=== PATIENT | male | born 1960 | race Caucasian/White ===

== ENCOUNTER → 2017-09-17 | Day surgery (SDC) | payer OTHER ==
[~2017-09-17] VITALS: Ht 182.9 cm; Wt 109.0 kg
[~2017-09-17] MED LIST: ALBU18002 INH; BUPR1SUB23; BUPR8MIS SL; CARI350T28 PO; DULA0.5I; FENTANYL CITRATE INJ 50 MCG/1 ML 2 ML VIAL ONE; FOLI1TAB8 PO; GABA-113 PO; GLC500 PO; INSDGIPEN SC; INSU100I23 SC; INSU32MI13 SC; INSUINJ34 SC; INSUINJ5 SC; LBR25 PO; LIDOCAINE HCL 2% 2 ML VIAL (20MG/ML) ONE; LOSA1TAB PO; METF-841 PO; METO200T32 PO; MIDAZOLAM HCL 1 MG/ML 2ML VIAL ONE; NRN400 PO; OMEP-334 PO; OMEP1POW; PROPOFOL IV EMULSION 10 MG/ML 20 ML VIAL ONE; SODIUM CHLORIDE 0.9% 500ML 500 ML IV ONE; THM100 PO
--- NOTE | 2017-09-17 13:43 | Endo History and Physical ---
History & Physical Date of Service: Sep 17, 2017. Chief Complaint: GERD, Dysphagia Referring Physician: PAMELA Mason History of Present Illness 56 yo CM who presents for EGD secondary to GERD and Dysphagia. Social History Smoking Status: Current Every Day Smoker Hx Substance Use: Yes (suboxone) Hx Alcohol Use: Yes (states he is an alcoholic; drinks mouth wash) Allergies Coded Allergies: No Known Allergies (Unverified , 09/17/17) Current Medications Reported Home Medications Medications Dose Route/Sig Max Daily Dose Days Date Category Dose Instructions Apidra Solostar (Insulin Glulisine) 100 Unit/ Inj 0 SC TID 30 11/11/15 Rx 150-200 2 units 200-250 4 units 250-300 6 units 300-350 8 units 350-400 10 units 400-450 12 units 450-500 14 units Apidra Solostar (Insulin Glulisine) 100 Unit/ Inj 10 Units SC TID 30 11/11/15 Rx Bd Pen Needle/Julisa/Ultra (Insulin Pen Needle) 1 Mis Mis Box SC TID 11/11/15 Rx Folvite (Folic Acid) 1 Mg Tab 1 Tab PO DAILY 90 11/11/15 Rx Vitamin B-1 (Thiamine HCl) 100 Mg Tab 100 Mg PO QAM 11/11/15 Rx Metformin HCl 500 Mg Tab 500 Mg PO BIDM 11/11/15 Rx Lantus Solostar (Insulin Glargine) 100 Unit/Ml Inj 30 Unit SC HS 11/11/15 Rx Chlordiazepoxide HCl (Chlordiazepoxide) 25 Mg Cap 25 Mg PO Q8H 11/11/15 Rx take 1 tab as needed for withdrawal every 8 hours for 3 days, then every 12 h for 3 days,then daily for 3 days,then as needed Neurontin (Gabapentin) 300 Mg Cap 300 Mg PO TID 08/31/15 Reported Soma (Carisoprodol) 350 Mg Tab 350 Mg PO PRN 08/31/15 Reported Cozaar (Losartan Potassium) Unknown Strength Tab 100 Mg PO HS 08/31/15 Reported Physical Exam General Appearance: WD/WN, no apparent distress Respiratory/Chest: Auscultation: breath sounds normal Cardiovascular: Heart Auscultation: RRR Abdomen: Bowel Sounds: normal Inspection & Palpation: soft, non-distended, no tenderness, guarding & rebound Assessment and Plan Assessment: 56 yo CM who presents for EGD secondary to GERD and Dysphagia. Plan: Proceed with EGD.
[2017-09-17 13:51] VITALS: Ht 182.9 cm; Wt 109.0 kg
--- NOTE | 2017-09-17 14:52 | Discharge Instructions ---
Endoscopy Patient Instructions Date / Procedure(s) Performed Sep 17, 2017. EGD Allergy Information Coded Allergies: No Known Allergies (Unverified , 09/17/17) Discharge Date / Findings Sep 17, 2017. Aborted procedure secondary to retained gastric contents Medication Instructions OK to resume all medications today as prescribed Reported Home Medications Medications Dose Route/Sig Max Daily Dose Days Date Category Dose Instructions Suboxone 8-2 Mg (Buprenorphine Hcl-Naloxone Hcl) 1 Sub Sub 09/17/17 Reported Trulicity (Dulaglutide) 1.5 Mg/0.5 Ml Inj 09/17/17 Reported Omeprazole/Sodium Bicarbo 40-1680 mg (Omeprazole-Sodium Bicarbonate) 1 Pow Pow 09/17/17 Reported Toprol-Xl (Metoprolol Succinate) 200 Mg Tabcr 200 Mg PO DAILY 09/17/17 Reported Apidra Solostar (Insulin Glulisine) 100 Unit/ Inj 0 SC TID 30 11/11/15 Rx 150-200 2 units 200-250 4 units 250-300 6 units 300-350 8 units 350-400 10 units 400-450 12 units 450-500 14 units Apidra Solostar (Insulin Glulisine) 100 Unit/ Inj 10 Units SC TID 30 11/11/15 Rx Bd Pen Needle/Julisa/Ultra (Insulin Pen Needle) 1 Mis Mis Box SC TID 11/11/15 Rx Folvite (Folic Acid) 1 Mg Tab 1 Tab PO DAILY 90 11/11/15 Rx Vitamin B-1 (Thiamine HCl) 100 Mg Tab 100 Mg PO QAM 11/11/15 Rx Metformin HCl 500 Mg Tab 500 Mg PO BIDM 11/11/15 Rx Lantus Solostar (Insulin Glargine) 100 Unit/Ml Inj 30 Unit SC HS 11/11/15 Rx Chlordiazepoxide HCl (Chlordiazepoxide) 25 Mg Cap 25 Mg PO Q8H 11/11/15 Rx take 1 tab as needed for withdrawal every 8 hours for 3 days, then every 12 h for 3 days,then daily for 3 days,then as needed Neurontin (Gabapentin) 300 Mg Cap 300 Mg PO TID 08/31/15 Reported Soma (Carisoprodol) 350 Mg Tab 350 Mg PO PRN 08/31/15 Reported Cozaar (Losartan Potassium) Unknown Strength Tab 100 Mg PO HS 08/31/15 Reported Provider Instructions Activity Restrictions - No exercising or heavy lifting for 24 hours. - Do not drink alcohol the day of the procedure. - Do not drive a car or operate machinery until the day after the procedure. - Do not make any important decisions or sign important papers in 24 hours after the procedure. Following Day: - Return to full activity which may include returning to work/school. Diet Start your diet with liquids and light foods (jello, soup, juice, toast). Then eat your usual diet if not nauseated. Treatment For Common After Affects For mild abdominal pain, bloating, or excessive gas: - Rest - Eat lightly - Lie on right side Gastric emptying study to be scheduled by my office Follow-Up Information Follow-up with Gladys Alberto as scheduled Anesthesia Information What You Should Know You have had a procedure that required some medicine to reduce anxiety and discomfort. This treatment is called moderate sedation. After receiving the treatment, you may be sleepy, but you will be able to breathe on your own. The effects of the treatment may last for several hours. Follow these instructions along with Activity/Diet recommendations noted above: * Do NOT do anything where dizziness or clumsiness would be dangerous. * Rest quietly at home today, then you can be up and about tomorrow. * Have a responsible person stay with you the rest of today. * You may have had an I.V. today. If so, you may take the dressing off later today. Recommendations Call your doctor if: * Trouble breathing * Continuous vomiting for more than 24 hours * Temperature above 101 degrees * Severe abdominal pain or bloating * Pain not relieved by pain medicine ordered * There is increased drainage or redness from any incision * A large amount of rectal bleeding greater than 2-3 tablespoons. (If you had a polyp/s removed or have hemorrhoids, a small amount of blood - from the rectum is to be expected.) * You have any unanswered questions or concerns. IN THE EVENT OF A SERIOUS EMERGENCY, GO TO THE NEAREST EMERGENCY ROOM Your discharge instructions were prepared by provider Azam Leach. Patient Instructions Signature Page Chuck Gonzalez Patient (or Guardian) Signature/Date: I have read and understand the instructions given to me by my caregivers. Caregiver/RN/Doctor Signature/Date: The above-named patient and/or guardian has received patient instructions on this date. + Original Patient Signature Page (only) stays with chart. Please make copy for patient.
--- NOTE | 2017-09-17 15:03 | GI REPORT ---
Patient Name: Chuck Gonzalez Procedure Date: 09/17/2017 2:30 PM Date of : 1960 Admit Type: Outpatient Age: 56 Gender: Male Attending MD: Azam Leach DO Procedure: Upper GI endoscopy Providers: Azam Leach DO Referring MD: Azam Leach DO Indications: Dysphagia, Suspected gastro-esophageal reflux disease Medicines: Monitored Anesthesia Care Complications: No immediate complications. Estimated Blood Loss: Estimated blood loss: none. Procedure: Pre-Anesthesia Assessment: - Prior to the procedure, a History and Physical was performed, and patient medications and allergies were reviewed. The patient's tolerance of previous anesthesia was also reviewed. The risks and benefits of the procedure and the sedation options and risks were discussed with the patient. All questions were answered, and informed consent was obtained. Prior Anticoagulants: The patient has taken no previous anticoagulant or antiplatelet agents. ASA Grade Assessment: III - A patient with severe systemic disease. After reviewing the risks and benefits, the patient was deemed in satisfactory condition to undergo the procedure. After obtaining informed consent, the endoscope was passed under direct vision. Throughout the procedure, the patient's blood pressure, pulse, and oxygen saturations were monitored continuously. The scope was introduced through the mouth, with the intention of advancing to the duodenum. The scope was advanced to the gastric body before the procedure was aborted. Medications were given. The upper GI endoscopy was accomplished without difficulty. The patient tolerated the procedure well. The procedure was aborted due to presence of food. Findings: The esophagus was normal. A large amount of food (residue) was found on the greater curvature of the stomach. Impression: - The procedure was aborted due to presence of food. - Normal esophagus. - A large amount of food (residue) in the stomach. - No specimens collected. Recommendation: - Resume previous diet. - Continue present medications. - Repeat upper endoscopy in 1 week because there was retained food. - Will schedule Gastric emptying study prior to repeat EGD. - Return to primary care physician as previously scheduled. Azam Leach DO 09/17/2017 3:03:19 PM This report has been signed electronically. Note Initiated On: 09/17/2017 2:30 PM Number of Addenda: 0 I attest to the content of the Intraoperative Record and orders documented therein, exceptions below {[id number]}
--- NOTE | 2017-09-17 15:09 | Anesthesiology Progress Note ---
Anesthesia Post Op Note Date & Time Sep 17, 2017 at 15:09 Vital Signs Pain Intensity: 0 Vital Signs Past 12 Hours Date Time Temp Pulse Resp B/P (MAP) Pulse Ox O2 Delivery O2 Flow Rate FiO2 09/17/17 14:54 86 16 101/51 (68) 93 Room Air 09/17/17 14:12 36.4 75 16 121/65 (83) 94 Room Air Notes Mental Status: alert / awake / arousable, participated in evaluation Pt Amnestic to Procedure: Yes Nausea / Vomiting: adequately controlled Pain: adequately controlled Airway Patency, RR, SpO2: stable & adequate BP & HR: stable & adequate Hydration State: stable & adequate Anesthetic Complications: no major complications apparent
[2017-09-17 15:24] VITALS: BP 123/84; PULSE 76; O2SAT 95
== END | disposition home or self-care (01) ==
LOC: C.GI 13:13
PROVIDERS: ATTEND Internal Medicine
DX: R13.10 Dysphagia, unspecified (principal); K21.9 Gastro-esophageal reflux disease without esophagitis; J44.9 Chronic obstructive pulmonary disease, unspecified; G47.33 Obstructive sleep apnea (adult) (pediatric); I10 Essential (primary) hypertension; E11.9 Type 2 diabetes mellitus without complications; F11.20 Opioid dependence, uncomplicated; F17.200 Nicotine dependence, unspecified, uncomplicated; Z79.4 Long term (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

== ENCOUNTER → 2017-09-19 | Outpatient (CLI) | payer OTHER ==
[~2017-09-19] MED LIST changes: -FENTANYL CITRATE INJ 50 MCG/1 ML 2 ML VIAL ONE; -LIDOCAINE HCL 2% 2 ML VIAL (20MG/ML) ONE; -MIDAZOLAM HCL 1 MG/ML 2ML VIAL ONE; -PROPOFOL IV EMULSION 10 MG/ML 20 ML VIAL ONE; -SODIUM CHLORIDE 0.9% 500ML 500 ML IV ONE
--- NOTE | 2017-09-19 12:45 | DIAGNOSTIC IMAGING REPORT ---
GASTRIC EMPTYING CLINICAL HISTORY: 56 years-old Male presenting with R13.10 [id number] Gastric [id number]. TECHNIQUE: Following the oral administration of 1.2 mCi of technetium 99m sulfur colloid in egg sandwich and 8 ounces of water, static abdominal images are obtained anteriorly and posteriorly at 0 minutes, 1 hour, 2 hour, and 4 hour time intervals. Gastric emptying was calculated utilizing the geometric mean method. COMPARISON: CT of abdomen and pelvis from 08/31/2015. FINDINGS: There is approximately 80% activity remaining at the 1 hour time interval, 73% remaining at the 2 hour time interval (normal is less than 60%), and 59% activity remaining at the 4 hour time interval (normal is less than 10%). IMPRESSION: Abnormally delayed gastric emptying of solids. This could represent gastroparesis among other etiologies. Electronically signed by: Jameel Garcia M.D. 09/19/2017 12:43 PM Dictated Date/Time: 09/19/2017 12:42 PM
== END | disposition home or self-care (01) ==
LOC: C.NUCL 08:02
PROVIDERS: ATTEND Internal Medicine
DX: K21.9 Gastro-esophageal reflux disease without esophagitis (principal); R13.10 Dysphagia, unspecified

== ENCOUNTER → 2017-09-26 | Day surgery (SDC) | payer OTHER ==
[2017-09-19 13:43] VITALS: Ht 182.9 cm; Wt 109.1 kg
[~2017-09-26] VITALS: Ht 182.9 cm; Wt 109.1 kg
[~2017-09-26] MED LIST changes: +ATROPINE SULFATE 0.1 MG/ML 5ML SYR IV PRN; -BUPR1SUB23; -CARI350T28 PO; +EpHEDrine SULFATE INJ 50 MG/ML AMP IV PRN; -FOLI1TAB8 PO; -GABA-113 PO; -GLC500 PO; -INSDGIPEN SC; -INSUINJ34 SC; -LBR25 PO; +LIDOCAINE HCL 2% 2 ML VIAL (20MG/ML) ONE; -OMEP1POW; +PROPOFOL IV EMULSION 10 MG/ML 20 ML VIAL ONE; +SODIUM CHLORIDE 0.9% 500ML 500 ML IV ONE; -THM100 PO
--- NOTE | 2017-09-26 13:16 | Endo History and Physical ---
History & Physical Date of Service: September 26, 2017. Chief Complaint: Dysphagia, gastric reflux Referring Physician: MARCELA Mason History of Present Illness 56 yo CM who presents for EGD secondary to GERD and dysphagia. Past Surgical History Hx Cardiac Surgery: No Hx Internal Defibrillator: No Hx Pacemaker: No Hx Abdominal Surgery: No Hx of Implantable Prosthesis: No Hx Post-Op Nausea and Vomiting: No Hx Cancer Surgery: No Hx Thoracic Surgery: No Hx Orthopedic: Yes (L LEG X3-WOUND VAC, CELLULITIS) Hx Urinary Tract Surgery: No Social History Smoking Status: Current Every Day Smoker Hx Substance Use: Yes (suboxone, RECOVERING HEROIN/CRACK ADDICT) Hx Alcohol Use: No (RECOVERING ALCHOLIC) Allergies Coded Allergies: No Known Allergies (Verified , 09/26/17) Current Medications Reported Home Medications Medications Dose Route/Sig Max Daily Dose Days Date Category Proair Respiclick (Albuterol Sulfate) 108 Mcg/Act Aer 1-2 Puffs INH DIRECTED PRN 09/19/[address] (Omeprazole) 40 Mg Cap 1 Tab PO QAM 09/19/17 Reported Metformin HCl ER (Metformin HCl) 1,000 Mg Tab 2 Tab PO HS 09/19/17 Reported Basaglar Kwikpen (Insulin Glargine) 100 Unit/Ml Inj 50 Units SC DAILY 09/19/17 Reported Apidra (Insulin Glulisine) 100 Unit/Ml Inj 10 Units SC QDD 09/19/17 Reported Suboxone 8-2 Mg (Buprenorphine Hcl-Naloxone Hcl) 1 Mis Mis 1 Ea SL BID 7 09/19/17 Reported Gabapentin 400 Mg Cap 1 Tab PO BID 09/19/17 Reported Trulicity (Dulaglutide) 1.5 Mg/0.5 Ml Inj WK 09/17/17 Reported Toprol-Xl (Metoprolol Succinate) 200 Mg Tabcr 200 Mg PO DAILY 09/17/17 Reported Bd Pen Needle/Julisa/Ultra (Insulin Pen Needle) 1 Mis Mis Box SC TID 11/11/15 Rx Cozaar (Losartan Potassium) Unknown Strength Tab 100 Mg PO HS 08/31/15 Reported Vital Signs Weight (Kilograms): 109.09 Height (Feet): 6 Height (Inches): 0 Date Time Temp Pulse Resp B/P (MAP) Pulse Ox O2 Delivery O2 Flow Rate FiO2 09/26/17 13:13 36.8 82 18 106/67 (80) 93 Room Air Physical Exam General Appearance: WD/WN, no apparent distress Respiratory/Chest: Auscultation: breath sounds normal Cardiovascular: Heart Auscultation: RRR Abdomen: Bowel Sounds: normal Inspection & Palpation: soft, non-distended, no tenderness, guarding & rebound Assessment and Plan Assessment: 56 yo CM who presents for EGD secondary to GERD and dysphagia. Plan: Proceed with EGD.
--- NOTE | 2017-09-26 13:42 | Discharge Instructions ---
Endoscopy Patient Instructions Date / Procedure(s) Performed September 26, 2017. EGD Allergy Information Coded Allergies: No Known Allergies (Verified , 09/26/17) Discharge Date / Findings September 26, 2017. Retained gastric contents Dilation of disatl esophagus to 18mm Medication Instructions OK to resume all medications today as prescribed Reported Home Medications Medications Dose Route/Sig Max Daily Dose Days Date Category Proair Respiclick (Albuterol Sulfate) 108 Mcg/Act Aer 1-2 Puffs INH DIRECTED PRN 09/19/[address] (Omeprazole) 40 Mg Cap 1 Tab PO QAM 09/19/17 Reported Metformin HCl ER (Metformin HCl) 1,000 Mg Tab 2 Tab PO HS 09/19/17 Reported Basaglar Kwikpen (Insulin Glargine) 100 Unit/Ml Inj 50 Units SC DAILY 09/19/17 Reported Apidra (Insulin Glulisine) 100 Unit/Ml Inj 10 Units SC QDD 09/19/17 Reported Suboxone 8-2 Mg (Buprenorphine Hcl-Naloxone Hcl) 1 Mis Mis 1 Ea SL BID 7 09/19/17 Reported Gabapentin 400 Mg Cap 1 Tab PO BID 09/19/17 Reported Trulicity (Dulaglutide) 1.5 Mg/0.5 Ml Inj WK 09/17/17 Reported Toprol-Xl (Metoprolol Succinate) 200 Mg Tabcr 200 Mg PO DAILY 09/17/17 Reported Bd Pen Needle/Julisa/Ultra (Insulin Pen Needle) 1 Mis Mis Box SC TID 11/11/15 Rx Cozaar (Losartan Potassium) Unknown Strength Tab 100 Mg PO HS 08/31/15 Reported Provider Instructions Activity Restrictions - No exercising or heavy lifting for 24 hours. - Do not drink alcohol the day of the procedure. - Do not drive a car or operate machinery until the day after the procedure. - Do not make any important decisions or sign important papers in 24 hours after the procedure. Following Day: - Return to full activity which may include returning to work/school. Diet Start your diet with liquids and light foods (jello, soup, juice, toast). Then eat your usual diet if not nauseated. Treatment For Common After Affects For mild abdominal pain, bloating, or excessive gas: - Rest - Eat lightly - Lie on right side Follow-Up Information Follow-up with MARCELA Mason as scheduled Anesthesia Information What You Should Know You have had a procedure that required some medicine to reduce anxiety and discomfort. This treatment is called moderate sedation. After receiving the treatment, you may be sleepy, but you will be able to breathe on your own. The effects of the treatment may last for several hours. Follow these instructions along with Activity/Diet recommendations noted above: * Do NOT do anything where dizziness or clumsiness would be dangerous. * Rest quietly at home today, then you can be up and about tomorrow. * Have a responsible person stay with you the rest of today. * You may have had an I.V. today. If so, you may take the dressing off later today. Recommendations Call your doctor if: * Trouble breathing * Continuous vomiting for more than 24 hours * Temperature above 101 degrees * Severe abdominal pain or bloating * Pain not relieved by pain medicine ordered * There is increased drainage or redness from any incision * A large amount of rectal bleeding greater than 2-3 tablespoons. (If you had a polyp/s removed or have hemorrhoids, a small amount of blood - from the rectum is to be expected.) * You have any unanswered questions or concerns. IN THE EVENT OF A SERIOUS EMERGENCY, GO TO THE NEAREST EMERGENCY ROOM Your discharge instructions were prepared by provider Azam Leach. Patient Instructions Signature Page Chuck Gonzalez Patient (or Guardian) Signature/Date: I have read and understand the instructions given to me by my caregivers. Caregiver/RN/Doctor Signature/Date: The above-named patient and/or guardian has received patient instructions on this date. + Original Patient Signature Page (only) stays with chart. Please make copy for patient.
--- NOTE | 2017-09-26 14:00 | Anesthesiology Progress Note ---
Anesthesia Post Op Note Date & Time September 26, 2017 at 13:59 Vital Signs Pain Intensity: 0 Vital Signs Past 12 Hours Date Time Temp Pulse Resp B/P (MAP) Pulse Ox O2 Delivery O2 Flow Rate FiO2 09/26/17 13:56 83 20 108/63 (78) 93 Room Air 09/26/17 13:41 83 16 95/54 (68) 93 Room Air 09/26/17 13:13 36.8 82 18 106/67 (80) 93 Room Air Notes Mental Status: alert / awake / arousable, participated in evaluation Pt Amnestic to Procedure: Yes Nausea / Vomiting: adequately controlled Pain: adequately controlled Airway Patency, RR, SpO2: stable & adequate BP & HR: stable & adequate Hydration State: stable & adequate Anesthetic Complications: no major complications apparent
[2017-09-26 14:23] VITALS: BP 123/79; PULSE 86; TEMP 36.8; O2SAT 93
--- NOTE | 2017-09-26 14:30 | GI REPORT ---
Patient Name: Chuck Gonzalez Procedure Date: 09/26/2017 1:19 PM Date of : 1960 Admit Type: Outpatient Age: 56 Gender: Male Attending MD: Azam Leach DO Procedure: Upper GI endoscopy Providers: Azam Leach DO Referring MD: Azam Leach DO Indications: Dysphagia Medicines: Monitored Anesthesia Care Complications: No immediate complications. Estimated Blood Loss: Estimated blood loss: none. Procedure: Pre-Anesthesia Assessment: - Prior to the procedure, a History and Physical was performed, and patient medications and allergies were reviewed. The patient's tolerance of previous anesthesia was also reviewed. The risks and benefits of the procedure and the sedation options and risks were discussed with the patient. All questions were answered, and informed consent was obtained. Prior Anticoagulants: The patient has taken no previous anticoagulant or antiplatelet agents. ASA Grade Assessment: III - A patient with severe systemic disease. After reviewing the risks and benefits, the patient was deemed in satisfactory condition to undergo the procedure. After obtaining informed consent, the endoscope was passed under direct vision. Throughout the procedure, the patient's blood pressure, pulse, and oxygen saturations were monitored continuously. The On-site loaner was introduced through the mouth, and advanced to the second part of duodenum. The upper GI endoscopy was accomplished without difficulty. The patient tolerated the procedure well. Findings: No endoscopic abnormality was evident in the esophagus to explain the patient's complaint of dysphagia. It was decided, however, to proceed with dilation at the gastroesophageal junction. A TTS dilator was passed through the scope. Dilation with a 15-16.5-18 mm balloon dilator was performed to 18 mm. The dilation site was examined and showed no change. A medium amount of food (residue) was found on the greater curvature of the stomach. The examined duodenum was normal. Impression: - No endoscopic esophageal abnormality to explain patient's dysphagia. Esophagus dilated. Dilated. - A medium amount of food (residue) in the stomach. - Normal examined duodenum. - No specimens collected. Recommendation: - Resume previous diet. - Continue present medications. - Await pathology results. - Return to primary care physician as previously scheduled. Azam Leach DO 09/26/2017 2:30:09 PM This report has been signed electronically. Note Initiated On: 09/26/2017 1:19 PM Number of Addenda: 0 I attest to the content of the Intraoperative Record and orders documented therein, exceptions below {[id number]}
== END | disposition home or self-care (01) ==
LOC: C.GI 12:37
PROVIDERS: ATTEND Internal Medicine
DX: R13.10 Dysphagia, unspecified (principal); K21.9 Gastro-esophageal reflux disease without esophagitis; J44.9 Chronic obstructive pulmonary disease, unspecified; E11.9 Type 2 diabetes mellitus without complications; I10 Essential (primary) hypertension; F17.200 Nicotine dependence, unspecified, uncomplicated; F11.20 Opioid dependence, uncomplicated; Z79.4 Long term (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; Z79.899 Other long term (current) drug therapy; Z79.84 Long term (current) use of oral hypoglycemic drugs; E78.00 Pure hypercholesterolemia, unspecified

== ENCOUNTER 2020-11-25 20:49 | Inpatient (IN) ==
[2020-11-25] MEDS ORDERED: dexAMETHasone**PF** 10 MG/ML VIAL IV ONE (22:14)
[2020-11-25 22:36] LABS: Hematocrit (blood only) 41.9 % (42-52); Hemoglobin 14.8 g/dL (14.0-18.0); Mean Corpuscular Hemoglobin 30.6 pg (25-34); Mean Corpuscular Hgb Conc 35.3 g/dL (32-36); Mean Corpuscular Volume 86.6 fL (80-100); Mean Platelet Volume 12.3 fL (7.4-10.4); Platelet Count 66 K/uL (130-400); RDW Coefficient of Variation 15.2 % (11.5-14.5); RDW Standard Deviation 48.6 fL (36.4-46.3); Red Blood Count 4.84 M/uL (4.7-6.1); White Blood Count 5.72 K/uL (4.8-10.8)
[2020-11-25 22:38] LABS: Basophils # (auto) 0.03 K/uL (0-0.2); Basophils % (auto) 0.5 %; Eosinophils # (auto) 0.24 K/uL (0-0.5); Eosinophils % (auto) 4.2 %; Immature Granulocytes # (auto) 0.01 K/uL (0.00-0.02); Immature Granulocytes % (auto) 0.2 %; Lymphocytes # (auto) 1.45 K/uL (1.2-3.4); Lymphocytes % (auto) 25.3 %; Monocytes # (auto) 0.55 K/uL (0.11-0.59); Monocytes % (auto) 9.6 %; Neutrophils # (auto) 3.44 K/uL (1.4-6.5); Neutrophils % (auto) 60.2 %; Polychromasia 1+
[2020-11-25 22:48] LABS: Alanine Aminotransferase 108 U/L (12-78); Albumin Globulin Ratio 0.7 (0.9-2); Albumin Level 3.1 gm/dl (3.4-5.0); Alkaline Phosphatase 99 U/L (45-117); Aspartate Aminotransferase 113 U/L (15-37); BUN Creatinine Ratio 14.2 (10-20); Bilirubin,Total 0.9 mg/dl (0.2-1); Blood Urea Nitrogen 13 mg/dl (7-18); Calcium 9.1 mg/dl (8.5-10.1); Carbon Dioxide 26 mmol/L (21-32); Chloride 98 mmol/L (98-107); Creatinine Clr Calc Pharmacy 109.6 ml/min; Est GFR (Non-African American) 94.9 ml/min; Globulin 4.7 gm/dl (2.5-4.0); Glucose 479 mg/dl (70-99); NT Pro B Type Natriuretic Pept 88 pg/ml (0-900); Potassium 4.4 mmol/L (3.5-5.1); Sodium 130 mmol/L (136-145); Total Protein 7.8 gm/dl (6.4-8.2); Troponin I < 0.015 ng/ml (0-0.045)
[2020-11-25 22:59] LABS: Beta-Hydroxybutyrate 1.16 mg/dl (0.2-2.81)
[2020-11-25] MEDS ORDERED: SODIUM CHLORIDE 0.9% 1000ML 1,000 ML IV ONE (23:30)
[2020-11-25] MEDS ORDERED: ALBUT/IPRATROP 3MG/0.5MG NEB 3 ML VIAL NEB STA (23:48)
[2020-11-26 00:16] LABS: iSTAT Arterial Blood Gas HCO3 26 meg/L (19-24); iSTAT Arterial Blood Gas pCO2 41 mmHg (35-46); iSTAT Arterial Blood Gas pO2 67 mmHg (80-95); iSTAT Carbon Dioxide 27 mmol/L (24-31); iSTAT Hematocrit 44 % (42-52); iSTAT Potassium 4.6 mmol/L (3.3-5.0); iSTAT Sodium 133 mmol/L (135-144)
--- NOTE | 2020-11-26 00:54 | History & Physical Report ---
Date of Service November 26, 2020 Assessment & Plan (1) COPD exacerbation: 59yo male presenting with 1 week of SCHWAB/SOB as well as cough productive for thick, yellow sputum. SpO2 of 89% on room air on arrival, improved with 2L NC. Diffusely wheezing with coarse breath sounds throughout. AzCXR with possible RLL infiltrate -Admit to medical -DuoNebs q 4 hours -Albuterol q 2 hours PRN -Solumedrol 30mg IV TID -Azithromycin and Ceftriaxone -Mucinex and flutter valve Present on Admission?: Yes (2) Hyperglycemia due to type 2 diabetes mellitus: Elevated blood sugar on arrival to 479. No anion gap. Patient a dministered IV steroids in the ER and will be continued on them as above for COPD exacerbation -Glycemic managment consultation appreciated -Lantus increased to 50u qHS -REgular insulin 10 units given -ISS -Goal blood sugar 100 - 140 -Check A1C Present on Admission?: Yes (3) Chronic hepatitis C with cirrhosis: Compensated. Elevated EUS=359, XJH=367, Plt = 66 -Repeat LFTs in AM Present on Admission?: Yes (4) GERD (gastroesophageal reflux disease): Chronic -Continue Protonix 40mg po daily Present on Admission?: Yes (5) Hypertension: Chronic. Blood pressure acceptable at 130/75 -Continue Losartan 100mg po qHS F/E/N- Heplock. Mg repletion with 400mg po BID x 3 days, CC diet as tolerated Ppx - low risk for DVT. Encourage ambulation Code - DNR/DNI Dispo - Admit to Med-Surge Patient states that he MUST be out of the hospital Sunday AM at the latest as he has someone coming to fix his car Case Management consultation placed to assist patient with obtaining his home medications Present on Admission?: Yes History of Present Illness Chief Complaint: SOB Primary Care Provider: Harley Jaramillo PA-C Chuck Gonzalez is a 59yo male with multiple medical problems presenting with shortness of breath. Patient is a long-time smoker, has history of COPD. He reports that for the last week he has been feeling short of breath at rest and with exertion. He has cough productive for thick, yellow sputum and associated chest discomfort. He denies fevers, chills, palpitations, orthopnea, edema, weight gain. Patient states that he pulled an old oxygen tank out of his basement and has been using that intermittently. He does not have inhalers at home. He reports difficulty obtaining his medications. He states that he has insura nce but many of his medications are not covered. As a result he has been skipping medications and "rationing" his insulin to make it last longer. On arrival to the ER patient afebrile, hypertensive otherwise stable. Saturating 89% on room air. ER Course: Albuterol, Dexamethasone, NSS x 1L Allergies Allergy/AdvReac Type Severity Reaction Status Date / Time No Known Allergies Allergy Verified 11/25/20 23:52 Home Medications Medication Instructions Recorded Confirmed Type omeprazole 40 mg PO QAM 12/16/18 11/25/20 History buprenorphine-naloxone 2 film SUBLINGUAL DAILY 04/22/19 11/25/20 History losartan 100 mg PO HS 04/22/19 11/25/20 History Lantus Solostar U-100 Insulin 40 unit SUBCUT BID 08/20/20 11/25/20 History gabapentin 800 mg PO QID 08/20/20 11/25/20 History insulin lispro [Humalog U-100 14 unit SUBCUT TIDM 08/20/20 11/25/20 History Insulin] aspirin [Aspirin Low Dose] 81 mg PO DAILY 11/25/20 11/25/20 History vitamin B complex-folic acid 1 tab PO DAILY 11/25/20 11/25/20 History [Balance B-50 (with folic acid)] Past Med/Surg History Medical History AAA (abdominal aortic aneurysm) per pt, last evaluated 6 mo ago [place] or [facility]? "around 5 cm" -->says was referred to vascular surgery but no appt as of yet Alcoholic cirrhosis Anxiety Bipolar disorder COPD (chronic obstructive pulmonary disease) no inh at present Depression DM type 2 (diabetes mellitus, type 2) IDDM Dysphagia Fibromyalgia Gastroparesis GERD (gastroesophageal reflux disease) Hepatitis C dx 1 mo ago --> per pt, referred to [facility] in [place] for treatment but no appt as of yet History of DVT (deep vein thrombosis) "few years ago" LLE -- unk etiology -- per pt, no treatment at time of dx History of heroin abuse quit 2017 History of kidney stones History of migraine HTN (hypertension) Hyperlipidemia Hypertension Nocturnal hypoxia per pt, prescribed home O2 @ 2 LPM qHS and PRN daily in past but unable to obtain as of late r/t financial struggles. admits to using sister's oxygen at night when able. 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 Sleep apnea non compliant with CPAP Surgical History History of colonoscopy History of ear surgery as a child History of esophagogastroduodenoscopy (EGD) History of tonsillectomy History of tooth extraction S/P excisional debridement LLE Family History Other No family history of adverse response to anesthesia No significant medical problems Social History Smoking Status: Current every day smoker Tobacco Type: Cigarettes Cigarettes Per Day: 20; Second Hand Exposure: Yes; Do You Dip or Chew Tobacco: No; Hx Alcohol Use: No Hx Substance Use: No Preferred Language: Peruvian Communication Ability: Effective Manager Financial Planning Required: No Beliefs That Will Affect Care: None Current Living Situation: Alone Current Living Situation Comment: sister lives close by Other Information That Helps Us Care for You: No Feels Safe at Home: Yes Safety Concerns: Feels Safe At This Time Assistive Devices: Cane and Oxygen - at Night Review of Systems Review of Systems: All systems reviewed & are unremarkable except as noted in HPI & below +constipation +headaches Physical Exam Physical Exam: General: patient resting comfortably, NAD, non-toxic in appearance, AA&O x 4 Skin: warm, dry, intact, no rashes or lesions HEENT: NC/AT, PERRL, EOMI, anicteric sclera, conjunctiva without injection, external ear normal to inspection and nontender, nares patent, moist mucus membranes, dentition intact, no oropharyngeal lesions, neck supple, trachea midline, no LAD, no thyromegaly, no JVD Heart: +S1/S2, regular, no m/r/g Lungs: equal air entry bilaterally, diffusely coarse breath sounds with end- expiratory wheezing, cough with deep breathing productive for thick yellow sputum Abd: +BS, soft, NT/ND, no masses/organomegaly/ascites Ext: warm, 2+ pulses in UE/LE bilaterally, no clubbing/cyanosis or edema Neuro: nonfocal, patient AA&O x 4, speech intact, no facial droop, moving all extremities on command with equal strength 5/5 Results & Data Results & Data ([facility]) Vital Signs (Past 12 Hours) Vital Signs Temp Pulse Pulse Resp BP Pulse Ox 11/25/20 23:59 84 20 92 11/25/20 23:40 80 15 130/75 92 11/25/20 22:50 91 H 16 96 11/25/20 22:40 89 22 95 11/25/20 22:32 89 16 93 11/25/20 22:00 86 23 152/84 H 93 11/25/20 21:56 89 L 11/25/20 21:55 88 22 89 L 11/25/20 21:30 82 19 125/75 90 11/25/20 21:09 94 H 19 139/78 91 11/25/20 20:57 36.7 C 94 H 24 149/78 H 92 Laboratory Results Laboratory Results WBC 5.72 K/uL (4.8-10.8) 11/25/20 22:00 RBC 4.84 M/uL (4.7-6.1) 11/25/20 22:00 Hgb 14.8 g/dL (14.0-18.0) 11/25/20 22:00 POC Hgb 15.0 g/dl (14.0-18.0) 11/25/20 23:59 Hct 41.9 % (42-52) L 11/25/20 22:00 POC Hct 44 % (42-52) 11/25/20 23:59 MCV 86.6 fL (80-100) 11/25/20 22:00 MCH 30.6 pg (25-34) 11/25/20 22:00 MCHC 35.3 g/dL (32-36) 11/25/20 22:00 RDW Std Deviation 48.6 fL (36.4-46.3) H 11/25/20 22:00 RDW Coeff of Nabeel 15.2 % (11.5-14.5) H 11/25/20 22:00 Plt Count 66 K/uL (130-400) L 11/25/20 22:00 MPV 12.3 fL (7.4-10.4) H 11/25/20 22:00 Immature Gran % (Auto) 0.2 % 11/25/20 22:00 Neut % (Auto) 60.2 % 11/25/20 22:00 Lymph % (Auto) 25.3 % 11/25/20 22:00 Chaves % (Auto) 9.6 % 11/25/20 22:00 Eos % (Auto) 4.2 % 11/25/20 22:00 Baso % (Auto) 0.5 % 11/25/20 22:00 Neut # (Auto) 3.44 K/uL (1.4-6.5) 11/25/20 22:00 Lymph # (Auto) 1.45 K/uL (1.2-3.4) 11/25/20 22:00 Chaves # (Auto) 0.55 K/uL (0.11-0.59) 11/25/20 22:00 Eos # (Auto) 0.24 K/uL (0-0.5) 11/25/20 22:00 Baso # (Auto) 0.03 K/uL (0-0.2) 11/25/20 22:00 Immature Gran # (Auto) 0.01 K/uL (0.00-0.02) 11/25/20 22:00 Polychromasia 1+ 11/25/20 22:00 POC pH 7.40 (7.35-7.45) 11/25/20 23:59 POC pCO2 41 mmHg (35-46) 11/25/20 23:59 POC pO2 67 mmHg (80-95) L 11/25/20 23:59 POC HCO3 26 greg/L (19-24) H 11/25/20 23:59 POC Total CO2 27 mmol/L (24-31) 11/25/20 23:59 POC Base Excess 1.0 greg/L (-9-1.8) 11/25/20 23:59 POC ABG O2 Sat 93.0 % (90-95) 11/25/20 23:59 POC Sodium 133 mmol/L (135-144) L 11/25/20 23:59 Sodium 130 mmol/L (136-145) L 11/25/20 22:00 POC Potassium 4.6 mmol/L (3.3-5.0) 11/25/20 23:59 Potassium 4.4 mmol/L (3.5-5.1) 11/25/20 22:00 Chloride 98 mmol/L (98-107) 11/25/20 22:00 Carbon Dioxide 26 mmol/L (21-32) 11/25/20 22:00 Anion Gap 6.0 (3-11) 11/25/20 22:00 BUN 13 mg/dl (7-18) 11/25/20 22:00 Creatinine 0.89 mg/dl (0.6-1.4) 11/25/20 22:00 Est Cr Clr Drug Dosing 109.6 ml/min 11/25/20 22:00 Est GFR ( Amer) 110.0 ml/min 11/25/20 22:00 Est GFR (Non-Af Amer) 94.9 ml/min 11/25/20 22:00 BUN/Creatinine Ratio 14.2 (10-20) 11/25/20 22:00 Glucose 479 mg/dl (70-99) H* 11/25/20 22:00 POC Glucose 407 mg/dl (70-99) H* 11/26/20 01:51 Calcium 9.1 mg/dl (8.5-10.1) 11/25/20 22:00 Magnesium 1.7 mg/dl (1.8-2.4) L 11/25/20 22:00 Total Bilirubin 0.9 mg/dl (0.2-1) 11/25/20 22:00 AST 113 U/L (15-37) H 11/25/20 22:00 ALT 108 U/L (12-78) H 11/25/20 22:00 Alkaline Phosphatase 99 U/L (45-117) 11/25/20 22:00 Troponin I < 0.015 ng/ml (0-0.045) 11/25/20 22:00 NT-Pro-B Natriuret Pep 88 pg/ml (0-900) 11/25/20 22:00 Total Protein 7.8 gm/dl (6.4-8.2) 11/25/20 22:00 Albumin 3.1 gm/dl (3.4-5.0) L 11/25/20 22:00 Globulin 4.7 gm/dl (2.5-4.0) H 11/25/20 22:00 Albumin/Globulin Ratio 0.7 (0.9-2) L 11/25/20 22:00 Beta-Hydroxybutyric Acd 1.16 mg/dl (0.2-2.81) 11/25/20 22:00 Procalcitonin 0.14 ng/ml (0-0.5) 11/25/20 22:05 COVID-19 Eval Order Covid19 at [facility] 11/25/20 22:33 SARS-CoV-2 (PCR) NEGATIVE (Negative) 11/25/20 22:33 Diagnostic Findings CXR - by my interpretation, hyperinflation, possible developing RLL infiltrate PG Care Time/CCT Total # of Minutes Spent Total Time Spent with Patient: Total time spent is greater than 50% in coordination of care (as documented) at patient's floor/unit and/or counseling patient: Coding Level of Care Code 04130 Initial Inpt Care Lvl 3 Diagnoses COPD exacerbation J44.1 Hyperglycemia due to type 2 diabetes mellitus E11.65; Z79.4 Diabetes mellitus ocean transportation intermediary insulin use: with senior living use Chronic hepatitis C with cirrhosis B18.2; K74.60 GERD (gastroesophageal reflux disease) K21.9 Esophagitis presence: esophagitis presence not specified Hypertension I10 Hypertension type: primary hypertension (1) Hyperglycemia due to type 2 diabetes mellitus Diabetes mellitus ocean transportation intermediary insulin use: with ocean transportation intermediary use Qualified Code(s): E11.65 - Type 2 diabetes mellitus with hyperglycemia; 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
--- NOTE | 2020-11-26 01:24 | Emergency Department Note ---
History of Present Illness General Chief complaint: Shortness of Breath/Dyspnea Stated complaint: SHORTNESS OF BREATH/DIZZY Time Seen by Provider: 11/25/20 21:59 History of Present Illness Maximum Pain Intensity: 0 This 59-year-old smoker presents to the ER complaining of cough, dyspnea for the past few days he continues to smoke and has not received the Covid vaccine Location: Chest Quality: Hard to breathe Severity: Moderate Duration: Past few days Timing: Started few days ago Context: Patient was concerned and came in Modifying factors: better with nebulizer; worse with activity Patient denies fever, chills, abdominal pain, flulike illness. Home Medications Medication Instructions Recorded Confirmed Type omeprazole 40 mg PO QAM 12/16/18 11/25/20 History buprenorphine-naloxone 2 film SUBLINGUAL DAILY 04/22/19 11/25/20 History losartan 100 mg PO HS 04/22/19 11/25/20 History Lantus Solostar U-100 Insulin 40 unit SUBCUT BID 08/20/20 11/25/20 History gabapentin 800 mg PO QID 08/20/20 11/25/20 History insulin lispro [Humalog U-100 14 unit SUBCUT TIDM 08/20/20 11/25/20 History Insulin] aspirin [Aspirin Low Dose] 81 mg PO DAILY 11/25/20 11/25/20 History vitamin B complex-folic acid 1 tab PO DAILY 11/25/20 11/25/20 History [Balance B-50 (with folic acid)] Allergies Allergy/AdvReac Type Severity Reaction Status Date / Time No Known Allergies Allergy Verified 11/25/20 23:52 Past Med/Surg History Medical History AAA (abdominal aortic aneurysm) per pt, last evaluated 6 mo ago [place] or [facility]? "around 5 cm" -->says was referred to vascular surgery but no appt as of yet Alcoholic cirrhosis Anxiety Bipolar disorder COPD (chronic obstructive pulmonary disease) no inh at present Depression DM type 2 (diabetes mellitus, type 2) IDDM Dysphagia Fibromyalgia Gastroparesis GERD (gastroesophageal reflux disease) Hepatitis C dx 1 mo ago --> per pt, referred to [facility] in [place] for treatment but no appt as of yet History of DVT (deep vein thrombosis) "few years ago" LLE -- unk etiology -- per pt, no treatment at time of dx History of heroin abuse quit 2017 History of kidney stones History of migraine HTN (hypertension) Hyperlipidemia Hypertension Nocturnal hypoxia per pt, prescribed home O2 @ 2 LPM qHS and PRN daily in past but unable to obtain as of late r/t financial struggles. admits to using sister's oxygen at night when able. 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 Sleep apnea non compliant with CPAP Surgical History History of colonoscopy History of ear surgery as a child History of esophagogastroduodenoscopy (EGD) History of tonsillectomy History of tooth extraction S/P excisional debridement LLE Family History Other No family history of adverse response to anesthesia No significant medical problems Social History Smoking Status: Current every day smoker Tobacco Type: Cigarettes Cigarettes Per Day: 20; Second Hand Exposure: Yes; Do You Dip or Chew Tobacco: No; Hx Alcohol Use: No Hx Substance Use: No Preferred Language: Congolese Communication Ability: Effective Pace Analyst Required: No Beliefs That Will Affect Care: None Current Living Situation: Alone Current Living Situation Comment: sister lives close by Other Information That Helps Us Care for You: No Feels Safe at Home: Yes Safety Concerns: Feels Safe At This Time Assistive Devices: Cane and Oxygen - at Night Review of Systems A total of 10 systems reviewed and were otherwise negative Physical Exam Vital Signs Vital Signs - 24 hr 11/25/20 20:57 11/25/20 21:09 11/25/20 21:10 Temperature 36.7 C Temperature Source Oral Pulse Rate 94 H 94 H Pulse Rate [Apical] Pulse Rate from SpO2 Sensor 93 H Pulse Rhythm Respiratory Rate 24 19 Respiratory Effort / Characteristics Accessory Muscle Use Labored Short of Breath SOB on Exertion Spontaneous Labored Respiratory Depth Normal Blood Pressure 149/78 H 139/78 Blood Pressure Mean 101 98 Blood Pressure Position Sitting Pulse Oximetry 92 91 Oxygen Delivery Method Room Air Room Air Room Air Oxygen Flow Rate Sepsis Recent Fever Within 48 Hours No Sepsis New/Unexplained Change in Mental Status No Sepsis Action Taken by Nursing No Action Required Oxygen Flow Rate - Titration Pulse Oximetry Post Tiitration 11/25/20 21:30 11/25/20 21:55 11/25/20 21:56 Temperature Temperature Source Pulse Rate 82 88 Pulse Rate [Apical] Pulse Rate from SpO2 Sensor 82 Pulse Rhythm Regular Respiratory Rate 19 22 Respiratory Effort / Characteristics Respiratory Depth Blood Pressure 125/75 Blood Pressure Mean 91 Blood Pressure Position Pulse Oximetry 90 89 L 89 L Oxygen Delivery Method Room Air Room Air Room Air Oxygen Flow Rate Sepsis Recent Fever Within 48 Hours Sepsis New/Unexplained Change in Mental Status Sepsis Action Taken by Nursing Oxygen Flow Rate - Titration 2 Pulse Oximetry Post Tiitration 93 11/25/20 22:00 11/25/20 22:32 11/25/20 22:40 Temperature Temperature Source Pulse Rate 86 89 89 Pulse Rate [Apical] Pulse Rate from SpO2 Sensor 90 89 Pulse Rhythm Respiratory Rate 23 16 22 Respiratory Effort / Characteristics Respiratory Depth Blood Pressure 152/84 H Blood Pressure Mean 106 Blood Pressure Position Pulse Oximetry 93 93 95 Oxygen Delivery Method Nasal Cannula Nasal Cannula Nasal Cannula Oxygen Flow Rate 2 2 2 Sepsis Recent Fever Within 48 Hours Sepsis New/Unexplained Change in Mental Status Sepsis Action Taken by Nursing Oxygen Flow Rate - Titration Pulse Oximetry Post Tiitration 11/25/20 22:50 11/25/20 23:40 11/25/20 23:59 Temperature Temperature Source Pulse Rate 91 H 80 Pulse Rate [Apical] 84 Pulse Rate from SpO2 Sensor 89 80 Pulse Rhythm Respiratory Rate 16 15 20 Respiratory Effort / Characteristics Non-Labored Respiratory Depth Blood Pressure 130/75 Blood Pressure Mean 93 Blood Pressure Position Pulse Oximetry 96 92 92 Oxygen Delivery Method Nasal Cannula Nasal Cannula Nasal Cannula Oxygen Flow Rate 2 2 2 Sepsis Recent Fever Within 48 Hours Sepsis New/Unexplained Change in Mental Status Sepsis Action Taken by Nursing Oxygen Flow Rate - Titration Pulse Oximetry Post Tiitration 11/26/20 00:00 11/26/20 00:08 11/26/20 00:30 Temperature Temperature Source Pulse Rate 87 92 H Pulse Rate [Apical] Pulse Rate from SpO2 Sensor 86 93 H Pulse Rhythm Respiratory Rate 18 20 Respiratory Effort / Characteristics Respiratory Depth Blood Pressure 160/96 H 161/84 H Blood Pressure Mean 117 109 Blood Pressure Position Pulse Oximetry 98 95 Oxygen Delivery Method Nasal Cannula Nasal Cannula Nasal Cannula Oxygen Flow Rate 3 2 3 Sepsis Recent Fever Within 48 Hours Sepsis New/Unexplained Change in Mental Status Sepsis Action Taken by Nursing Oxygen Flow Rate - Titration 3 Pulse Oximetry Post Tiitration 94 VITALS: Vitals are noted on the nurse's note and reviewed by myself. Vital signs hypoxic. GENERAL: White male working to breathe SKIN: The skin was without rashes, erythema, edema, or bruising. There is no tenting of the skin. Capillary reflex less than 2 seconds. HEAD: Normocephalic atraumatic. EARS: External auditory canals clear, tympanic membranes pearly kasper without erythema or effusion bilaterally. EYES: Pupils equal round and reactive to light and accommodation. Conjunctivae without injection, sclerae without icterus. Extraocular movements intact. NOSE: Patent, turbinates without inflammation or discharge. MOUTH: Mucous membranes mildly dry. Pharynx without erythema or exudate. Uvula midline. Airway patent. Tongue does not deviate. NECK: Supple without nuchal rigidity. No lymphadenopathy. No thyromegaly. Cervical spine is nontender. No JVD. HEART: Regular rate and rhythm LUNGS: Diffuse inspiratory and expiratory wheezes. no retractions or accessory muscle use. ABDOMEN: Positive bowel sounds x 4. Normal tympanic percussion. Soft, nontender, without masses or organomegaly. King sign negative. No guarding or rebound tenderness. No CVA tenderness MUSCULOSKELETAL: No muscle atrophy, erythema, or edema noted. NEURO: Patient was alert and oriented to person place and time. Normal sensation to light and sharp touch. No focal neurological deficits. Course Administered Medications Albuterol (Albut/Ipratrop 3mg/0.5mg Neb 3 Ml Vial) 3 ml NEB Q4R REINA Stop: 12/26/20 02:59 Last Admin: 11/26/20 03:30 Dose: 3 ml Documented by: [id number] Discontinued Medications Albuterol (Albut/Ipratrop 3mg/0.5mg Neb 3 Ml Vial) 3 ml NEB NOW STA Stop: 11/25/20 23:49 Last Admin: 11/25/20 23:58 Dose: 3 ml Documented by: [id number] Dexamethasone Sodium Phosphate (DexamethasonePf 10 Mg/Ml Vial) 10 mg IV NOW ONE Stop: 11/25/20 22:15 Last Admin: 11/25/20 22:20 Dose: 10 mg Documented by: [id number] Sodium Chloride (Nss 1000ml) 1,000 mls @ 999 mls/hr IV .Q1H1M ONE Stop: 11/26/20 00:30 Last Infusion: 11/26/20 01:23 Dose: 0 mls/hr Documented by: [id number] Admin: 11/25/20 23:47 Dose: 999 mls/hr Documented by: [id number] Azithromycin 500 mg/ Dextrose 255 mls @ 127.5 mls/hr IV NOW STA Stop: 11/26/20 03:48 Last Admin: 11/26/20 02:30 Dose: 127.5 mls/hr Documented by: [id number] Insulin Human Regular 10 units (/ Syringe) 10 mls @ 30 mls/min IV NOW STA Stop: 11/26/20 02:01 Last Admin: 11/26/20 02:29 Dose: 30 mls/min Documented by: [id number] Cosigned by: [id number] Insulin Aspart (Insulin Aspart 100 Units/Ml 3 Ml Pen) 0 units SC NOW STA; Protocol Stop: 11/26/20 02:25 Last Admin: 11/26/20 02:33 Dose: 13 units Documented by: [id number] Cosigned by: [id number] Insulin Glargine (Insulin Glargine Solostar 100 Units/Ml 3 Ml Pen) 50 units SQ NOW STA; Protocol Stop: 11/26/20 01:59 Last Admin: 11/26/20 02:30 Dose: 50 units Documented by: [id number] Cosigned by: [id number] Medical Decision Making Medical Records Attestation: I reviewed the patient's medical records. Home Medications Current Medication List: was personally reviewed by me Laboratory Data Attestation: I reviewed the patient's lab results. Result diagrams: 11/25/20 22:00 11/25/20 22:00 Lab Results 11/25/20 11/25/20 11/25/20 Range/Units 22:00 22:00 22:05 WBC 5.72 (4.8-10.8) K/uL RBC 4.84 (4.7-6.1) M/uL Hgb 14.8 (14.0-18.0) g/dL POC Hgb (14.0-18.0) g/dl Hct 41.9 L (42-52) % POC Hct (42-52) % MCV 86.6 (80-100) fL MCH 30.6 (25-34) pg MCHC 35.3 (32-36) g/dL RDW Std Deviation 48.6 H (36.4-46.3) fL RDW Coeff of Nabeel 15.2 H (11.5-14.5) % Plt Count 66 L (130-400) K/uL MPV 12.3 H (7.4-10.4) fL Immature Gran % (Auto) 0.2 % Neut % (Auto) 60.2 % Lymph % (Auto) 25.3 % Lares % (Auto) 9.6 % Eos % (Auto) 4.2 % Baso % (Auto) 0.5 % Neut # (Auto) 3.44 (1.4-6.5) K/uL Lymph # (Auto) 1.45 (1.2-3.4) K/uL Lares # (Auto) 0.55 (0.11-0.59) K/uL Eos # (Auto) 0.24 (0-0.5) K/uL Baso # (Auto) 0.03 (0-0.2) K/uL Immature Gran # (Auto) 0.01 (0.00-0.02) K/uL Polychromasia 1+ POC pH (7.35-7.45) POC pCO2 (35-46) mmHg POC pO2 (80-95) mmHg POC HCO3 (19-24) greg/L POC Total CO2 (24-31) mmol/L POC Base Excess (-9-1.8) grge/L POC ABG O2 Sat (90-95) % POC Sodium (135-144) mmol/L Sodium 130 L (136-145) mmol/L POC Potassium (3.3-5.0) mmol/L Potassium 4.4 (3.5-5.1) mmol/L Chloride 98 (98-107) mmol/L Carbon Dioxide 26 (21-32) mmol/L Anion Gap 6.0 (3-11) BUN 13 (7-18) mg/dl Creatinine 0.89 (0.6-1.4) mg/dl Est Cr Clr Drug Dosing 109.6 ml/min Est GFR ( Amer) 110.0 ml/min Est GFR (Non-Af Amer) 94.9 ml/min BUN/Creatinine Ratio 14.2 (10-20) Glucose 479 H* (70-99) mg/dl Calcium 9.1 (8.5-10.1) mg/dl Magnesium 1.7 L (1.8-2.4) mg/dl Total Bilirubin 0.9 (0.2-1) mg/dl AST 113 H (15-37) U/L ALT 108 H (12-78) U/L Alkaline Phosphatase 99 (45-117) U/L Troponin I < 0.015 (0-0.045) ng/ml NT-Pro-B Natriuret Pep 88 (0-900) pg/ml Total Protein 7.8 (6.4-8.2) gm/dl Albumin 3.1 L (3.4-5.0) gm/dl Globulin 4.7 H (2.5-4.0) gm/dl Albumin/Globulin Ratio 0.7 L (0.9-2) Beta-Hydroxybutyric Acd 1.16 (0.2-2.81) mg/dl Procalcitonin 0.14 (0-0.5) ng/ml COVID-19 Eval Order SARS-CoV-2 (PCR) (Negative) 11/25/20 11/25/20 11/25/20 Range/Units 22:33 22:33 23:59 WBC (4.8-10.8) K/uL RBC (4.7-6.1) M/uL Hgb (14.0-18.0) g/dL POC Hgb 15.0 (14.0-18.0) g/dl Hct (42-52) % POC Hct 44 (42-52) % MCV (80-100) fL MCH (25-34) pg MCHC (32-36) g/dL RDW Std Deviation (36.4-46.3) fL RDW Coeff of Nabeel (11.5-14.5) % Plt Count (130-400) K/uL MPV (7.4-10.4) fL Immature Gran % (Auto) % Neut % (Auto) % Lymph % (Auto) % Lares % (Auto) % Eos % (Auto) % Baso % (Auto) % Neut # (Auto) (1.4-6.5) K/uL Lymph # (Auto) (1.2-3.4) K/uL Lares # (Auto) (0.11-0.59) K/uL Eos # (Auto) (0-0.5) K/uL Baso # (Auto) (0-0.2) K/uL Immature Gran # (Auto) (0.00-0.02) K/uL Polychromasia POC pH 7.40 (7.35-7.45) POC pCO2 41 (35-46) mmHg POC pO2 67 L (80-95) mmHg POC HCO3 26 H (19-24) greg/L POC Total CO2 27 (24-31) mmol/L POC Base Excess 1.0 (-9-1.8) greg/L POC ABG O2 Sat 93.0 (90-95) % POC Sodium 133 L (135-144) mmol/L Sodium (136-145) mmol/L POC Potassium 4.6 (3.3-5.0) mmol/L Potassium (3.5-5.1) mmol/L Chloride (98-107) mmol/L Carbon Dioxide (21-32) mmol/L Anion Gap (3-11) BUN (7-18) mg/dl Creatinine (0.6-1.4) mg/dl Est Cr Clr Drug Dosing ml/min Est GFR ( Amer) ml/min Est GFR (Non-Af Amer) ml/min BUN/Creatinine Ratio (10-20) Glucose (70-99) mg/dl Calcium (8.5-10.1) mg/dl Magnesium (1.8-2.4) mg/dl Total Bilirubin (0.2-1) mg/dl AST (15-37) U/L ALT (12-78) U/L Alkaline Phosphatase (45-117) U/L Troponin I (0-0.045) ng/ml NT-Pro-B Natriuret Pep (0-900) pg/ml Total Protein (6.4-8.2) gm/dl Albumin (3.4-5.0) gm/dl Globulin (2.5-4.0) gm/dl Albumin/Globulin Ratio (0.9-2) Beta-Hydroxybutyric Acd (0.2-2.81) mg/dl Procalcitonin (0-0.5) ng/ml COVID-19 Eval Order Covid19 at [facility] SARS-CoV-2 (PCR) NEGATIVE (Negative) Imaging Data Attestation: I personally reviewed and interpreted this imaging study as follows: MDM Narrative Prior records/ancillary studies reviewed. Triage Nursing notes reviewed. Additional history obtained from nursing The patient's history was concerning for respiratory difficulties. Differential diagnosis: Etiologies such as infections, reactive airway disease, pneumonia, pneumothorax, COPD, CHF, cardiac ischemia, pulmonary embolism, musculoskeletal, gastrointestinal, as well as others were entertained. Physical examination: As above. ER treatment provided: An order was placed for continuous cardiac monitoring. The monitor shows a rate of 60-1 10 with a sinus rhythm. Decadron, nebulizer, IV fluids On reassessment the patient felt better. Diagnostic interpretation by me: The electrocardiogram was negative for acute ischemic or pathologic change. Normal sinus, normal intervals, no acute ST-T wave changes. Impression normal sinus rhythm interpreted by myself EKG ordered for dyspnea I think arrhythmia is unlikely. EKG shows normal sinus rhythm with no interval abnormalities such as QT prolongation or WPW. There are no findings to suggest Brugada syndrome. Cardiac monitoring in the emergency department reveals no ta chycardic or bradycardic dysrhythmia. Hypertrophic cardiomyopathy was considered but there are no clear historical elements pointing toward this. EKG is not suggestive. The QRS voltage is not extremely large and there are no suggestive Q waves. The labs revealed hyperglycemia without DKA. ABG reviewed. Negative Covid Imaging studies: Chest x-ray with no acute consolidation, pneumothorax or free air mitral rotation. Consultation: A consultation was placed with the hospitalist. The case was discussed and diagnostics were reviewed. The patient was evaluated in the ER for further renetta atment. This appears to be consistent with COPD exacerbation with poorly controlled diabetes. Patient felt better to medicate as above. He was still hypoxic on room air. Medicine was consulted. He will be admitted. He was hydrated as above. Repeat blood sugar was still high. Medicine will order insulin. By the evaluation outlined above emergent etiologies such as CHF, cardiac ischemia, pulmonary embolism, reactive airway disease, pneumonia, pneumothorax, musculoskeletal, serious bacterial infections, as well as others were deemed relatively unlikely. The pt informed about the findings as listed above. All questions were answered and pleased with the treatment. The chart was completed utilizing zkipster voice recognition software. Grammatical errors, random word insertions, pronoun errors, and incomplete sentences are an occassional consequence of this system due to software limitations, ambient noise, and hardware issues. Any formal questions or concerns about the content, text, or information contained within the body of this dictation should be directly addressed to the physician dental hygiene administrative assistant for clarification. Impression & Plan COPD exacerbation, Hyperglycemia due to type 2 diabetes mellitus Discharge Plan Visit Data Chief Complaint: Shortness of Breath/Dyspnea Stated Complaint: SHORTNESS OF BREATH/DIZZY ED Provider: Vinod Samuel ED Midlevel Provider: Verito Staples Discharge Problem: COPD exacerbation, Hyperglycemia due to type 2 diabetes mellitus Patient Disposition: Admitted As Inpatient Condition: Fair Discharge Instructions Interventions: ED Discharge Assessment Last Done: 11/26/20 01:21 Discharge Problem: Hyperglycemia due to type 2 diabetes mellitus Qualifiers: Diabetes mellitus microsoft exchange architect insulin use: with microsoft exchange architect use Qualified Code(s): E11.65 - Type 2 diabetes mellitus with hyperglycemia
[2020-11-26] MEDS ORDERED: ACETAMINOPHEN 325 MG TAB PO PRN (01:39)
[2020-11-26] MEDS ORDERED: ALBUTEROL 0.5% NEB SOLN 2.5 MG/0.5 ML VIAL NEB PRN (01:39)
[2020-11-26] MEDS ORDERED: GLUCAGON FOR INJ 1 MG VIAL SQ PRN (01:39)
[2020-11-26] MEDS ORDERED: CARBOHYDRATES FOR HYPOGLYCEMIA PO PRN (01:39)
[2020-11-26] MEDS ORDERED: DOCUSATE SODIUM 100 MG CAP PO PRN (01:39)
[2020-11-26] MEDS ORDERED: GLUCOSE 10 TABS/TUBE PO PRN (01:39)
[2020-11-26] MEDS ORDERED: DEXTROSE 50% 50 ML SYRINGE IV PRN (01:39)
[2020-11-26] MEDS ORDERED: POLYETHYLENE (MIRALAX) 17 GM PACK PO PRN (01:39)
[2020-11-26] MEDS ORDERED: GLUCOSE 40% GEL 15 GM TUBE PO PRN (01:39)
[2020-11-26] MEDS ORDERED: AZITHROMYCIN 500 MG in DEXTROSE 5% 250 ML IV STA (01:49)
[2020-11-26] MEDS ORDERED: PHARMACY GLYCEMIC MGMT CONSULT PRN (01:50)
[2020-11-26] MEDS ORDERED: INSULIN GLARGINE SOLOSTAR 100 UNITS/ML 3 ML PEN SQ STA (01:58)
[2020-11-26] MEDS ORDERED: INSULIN HUMAN REGULAR PER UNIT 10 UNITS in SYRINGE 9.9 ML IV STA ×2 (02:00→05:07)
[2020-11-26 02:05] LABS: Magnesium 1.7 mg/dl (1.8-2.4)
[2020-11-26] MEDS ORDERED: INSULIN ASPART 100 UNITS/ML 3 ML PEN SC STA (02:24)
--- NOTE | 2020-11-26 03:09 | Pharmacy Report ---
Pharmacy Glycemic Short Note 2 - Date of Service November 26, 2020 - Glycemic Short BSG Results (Last 24 hours): 11/25/20 11/26/20 11/26/20 22:00 01:00 01:51 Glucose 479 H* POC Glucose 419 H* 407 H* OUTPATIENT ANTIDIABETIC REGIMEN: * Lantus 40 units SC BID * Humalog 14 units SC TIDM * HbA1c pending ASSESSMENT: * 59 yo M admitted secondary to a COPD exacerbation. Pharmacy has been consulted to assist with inpatient glycemic management. * Patient received 10 mg of IV Dexamethasone in the ED. He will be started on Methylprednisolone 30 mg IV TID starting at 0900 on 11/26/20. Patient's BSGs was elevated prior to admission and steroids will continue to cause hyperglycemia. * Admission BSG was 479 mg/dL. POC BSG was 419 mg/dL a few hours later (following IV Dexamethasone). No signs of acidosis/HHS. Patient wanted to eat upon arrival to the floor, and he consumed 66 grams of CHO. His BSG at this time was 407 mg/dL. * Stressed his home Lantus dose by 20% to 50 units x 1. Will defer further basal dosing to AM pharmacist. * Gave a one-time IV regular insulin bolus of 10 units (0.1 unit/kg) for hyperglycemia. Potassium was 4.6 mmol/L so no supplementation was necessary. * Will start Novolog based on a weight/stress of 3. This may need tightened with further steroid use. Instructed RN to cover only carbs when patient ate. Will add an 0400 check to ensure BSG is trending downwards. PLAN FOR INPATIENT GLYCEMIC CONTROL: * Basal insulin * Lantus 50 units SC x 1 * Bolus insulin * NovoLog per scale ACHS or Q6hrs while NPO * Goal Range: Low 110 mg/dL - High 140 mg/dL * Correction Factor: 15 mg/dL/unit * Nutritional / Prandial insulin per carb ratio of 1 unit per 5 grams CHO consumed PLAN FOR DISCHARGE: * To be determined
[2020-11-26] MEDS: ALBUT/IPRATROP 3MG/0.5MG NEB 3 ML VIAL NEB SCH ×2 (03:30→06:55)
[2020-11-26] MEDS ORDERED: INSULIN ASPART 100 UNITS/ML 3 ML PEN SC SCH ×2 (04:00→07:30)
[2020-11-26 07:22] LABS: Estimated Average Glucose 309 mg/dl; Hemoglobin A1C 12.4 % (4.5-5.6)
--- NOTE | 2020-11-26 07:49 | XRay Report ---
SINGLE VIEW CHEST CLINICAL HISTORY: Dyspnea. FINDINGS: An AP, portable, upright chest radiograph is compared to study dated 12/16/2018 and correlat ed with chest CT dated 08/31/2015. The cardiomediastinal silhouette is unremarkable. Emphysema and chr onic interstitial thickening is similar to previous. Patchy airspace opacities are present the left l christina base. Foci of scarring/atelectasis are seen throughout both lungs. No large pleural effusion or p neumothorax is seen. The skeletal structures appear osteopenic. The bony thorax is grossly intact. IMPRESSION: 1. Emphysema. 2. Airspace opacities at the left lung base may represent scarring/atelectasis versus an infectious/i nflammatory pneumonitis. Clinical correlation will be required and radiographic follow-up to resoluti on is recommended ACT 112: Negative or not required by law. Electronically signed by: Adriano Sparks M.D. 11/26/2020 7:47 AM
[2020-11-26 08:55] LABS: BUN Creatinine Ratio 18.5 (10-20); Calcium 9.1 mg/dl (8.5-10.1); Creatinine Clr Calc Pharmacy 111.3 ml/min; Est GFR (African American) 110.5 ml/min; Est GFR (Non-African American) 95.4 ml/min; Potassium 4.4 mmol/L (3.5-5.1)
[2020-11-26] MEDS ORDERED: MAGNESIUM OXIDE 400 MG TAB PO SCH (09:00)
[2020-11-26] MEDS ORDERED: methylPREDNISolone 30 MG in SYRINGE 0 ML IV SCH (09:00)
[2020-11-26] MEDS ORDERED: GABAPENTIN 800 MG TAB PO SCH (09:00)
[2020-11-26] MEDS ORDERED: PANTOprazole 40 MG TAB PO SCH (09:00)
[2020-11-26] MEDS ORDERED: BUPRENORPHINE/NALOXONE 8/2 MG TAB SL SCH (09:00)
[2020-11-26] MEDS ORDERED: NICOTINE 14 MG/24 HR PATCH TD SCH (09:00)
[2020-11-26] MEDS ORDERED: INSULIN GLARGINE SOLOSTAR 100 UNITS/ML 3 ML PEN SQ SCH (09:00)
[2020-11-26] MEDS ORDERED: ASPIRIN 81 MG ECTAB PO SCH (09:00)
[2020-11-26] MEDS ORDERED: guaiFENesin 600 MG TABCR PO SCH (09:00)
[2020-11-26 09:11] LABS: Beta-Hydroxybutyrate 0.95 mg/dl (0.2-2.81)
[2020-11-26] MEDS: cefTRIAXone SODIUM 2,000 MG in DEXTROSE 5% 50 ML IV SCH ×2 (09:56→10:53)
[2020-11-26] MEDS ORDERED: GABAPENTIN 800 MG TAB PO ONE (10:42)
--- NOTE | 2020-11-26 17:40 | Hospitalist Progress Note ---
Date of Service November 26, 2020 Assessment & Plan (1) COPD exacerbation: * Patient claims that he "just came here to get prescribed oxygen and get a breathing treatment". * I had a lengthy discussion with the patient that although he may not feel far from his baseline, I do not feel that he is quite ready to be discharged. He was hypoxic upon presentation to the ED, he still has diminished breath sounds throughout with wheezes. I believe he would benefit from additional IV steroids, added pulmonary toilet, mucolytic agents, antitussives and continued empiric antibiotic therapy * Furthermore, I explained that he may require supplemental oxygen. Currently at rest, his pulse ox is between 89 and 91% I explained that the qualifying numbers 88%. I encouraged a two-step be performed to see if he does desaturate to 88% but he has refused. He claims that he can "continue using his sister's oxygen". I explained that this is not trejo as his sister would require the oxygen prescribed to her. At any rate, he claims that he feels well and is choosing to sign out AGAINST MEDICAL ADVICE. * Patient is aware of the risks including worsening respiratory status, respiratory failure, and * I have sent a prescription for empiric antibiotic therapy, tapering course of prednisone, and DuoNeb for in his nebulizer to at least provide treatment. * I have encouraged patient to return to the ED if his symptoms worsen * Patient voices understanding and risks discussed with patient with nurse at bedside (2) Hyperglycemia due to type 2 diabetes mellitus: * Currently with uncontrolled diabetes mellitus and hyperglycemia. In the setting of steroids, blood sugars are going to become more uncontrolled. * With blood sugars greater than 300, would benefit from an insulin drip to prevent ketosis. Patient refuses. * Discussion with patient that continued hyperglycemia can cause metabolic acidosis and further worsen his respiratory status causing respiratory failure and . Patient understands and has decided to sign out AGAINST MEDICAL ADVICE. Risks discussed with patient with nurse at bedside. (3) Pneumonitis: * Despite patient signing out AMA, I have provided an Rx for Omnicef, tapering course of prednisone, and DuoNeb treatment. * I encourage patient to return to the ED for any new or worsening symptoms * Patient to follow-up with his PCP (4) Chronic hepatitis C with cirrhosis: (5) Alcoholic cirrhosis of liver: (6) Hypertension: Admission and Anticipated Discharge Date Admission Date: November 26, 2020 Subjective Mr. Gonzalez is a 59-year-old white male with a past medical history of COPD (claims he is oxygen dependent but does not currently have oxygen), insulin-dependent diabetes mellitus, chronic alcohol abuse, alcoholic cirrhosis, hepatitis C, history of IV drug abuse, known AAA, bipolar with anxiety, and fibromyalgia. He was hospitalized in the overnight hours for an acute exacerbation of COPD. Reports that he is prescribed supplemental oxygen to use as needed. This was when he lived in [place] and claims that when he moved here 2 years ago, the [employer] company did not transfer his active prescription for oxygen. He has followed up with his PCP multiple times but claims he still does not have oxygen. He has been using his sister's oxygen. Reports increased shortness of breath over the past 4 to 5 days, with increased cough (productive of yellow/green sputum, without fevers or chills. Went to the urgent care clinic yesterday to "receive a breathing treatment and try to get some oxygen". He does have a nebulizer at home but is out of albuterol. He claims he was hypoxic and sent to the emergency department. Work-up in the ED revealed hyperglycemia of 479. Is prescribed Lantus 40 units twice daily but he admits that he is not compliant with this. His blood gas showed a pH of 7.40, PCO2 of 41. PO2 of 67. His chest x-ray showed questionab le bibasilar opacities concerning for pneumonitis. He was afebrile without leukocytosis. He was found to be slightly hypoxic at 89. He was subsequently hospitalized for an acute exacerbation of COPD with questionable concurrent pneumonitis and hyperglycemia. He is currently 90% on 3 L. Blood sugars are in the 500 range and he has refused an insulin drip. He has been on Solu-Medrol and empiric antibiotic therapy and claims that he "feels better and he is going home". 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 Currently denies fevers, chills, chest pain, shortness of breath, abdominal pain, nausea, vomiting, GI/ symptomatology. Physical Exam Physical Exam: General: Resting comfortably at bedside. Currently speaking full sentences on ambient air. Pulse ox fluctuating between 89 and 91%. Cardiac: RRR but distant Lungs: No conversational dyspnea. Diminished breath sounds throughout with end expiratory wheezes predominantly in the bases. Coarse rhonchi that clears with coughing. Abdomen: Normoactive X4. Soft and nontender in all quadrants. Extremities: No peripheral clubbing cyanosis or edema Results & Data Results & Data ([facility]) Vital Signs (Past 12 Hours) Vital Signs Temp Pulse Resp BP Pulse Ox 11/26/20 11:14 36.8 C 86 18 119/70 90 11/26/20 07:36 36.8 C 86 18 119/70 90 11/26/20 06:55 92 H 20 92 Laboratory Results 11/25/20 22:00 11/26/20 07:53 finger stick glucose: 419 PG Care Time/CCT Total # of Minutes Spent Total Time Spent with Patient: Total time spent is greater than 50% in coordination of care (as documented) at patient's floor/unit and/or counseling patient: C[place] [address] Subseq Hosp Care Lvl 3 Patient Type Established History Detailed Exam Detailed Medical Decision Making Moderate Complexity Diagnoses COPD exacerbation J44.1 Hyperglycemia due to type 2 diabetes mellitus E11.65; Z79.4 Diabetes mellitus intermediate insulin use: with 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
[2020-11-26] MEDS ORDERED: LOSARTAN POTASSIUM 50 MG TAB PO SCH (21:00)
[2020-11-26] MEDS ORDERED: AZITHROMYCIN 250 MG in DEXTROSE 5% 250 ML IV SCH (22:00)
[2020-11-27] MEDS ORDERED: INSULIN ASPART 100 UNITS/ML 3 ML PEN SC SCH
--- NOTE | 2020-11-27 06:11 | Electrocardiogram Report ---
Test Reason : Blood Pressure : / mmHG Vent. Rate : 081 BPM Atrial Rate : 081 BPM P-R Int : 148 ms QRS Dur : 088 ms QT Int : 370 ms P-R-T Axes : -14 -01 039 degrees QTc Int : 429 ms Normal sinus rhythm Low voltage QRS Borderline ECG When compared with ECG of 19-JUN-2020 22:28, Left anterior fascicular block is no longer Present Criteria for Inferior infarct are no longer Present Confirmed by David Caldwell ([id number]) on 11/27/2020 6:11:42 AM Referred By: REFERRED SELF Confirmed By:David Caldwell
--- NOTE | 2020-11-27 16:45 | Discharge Summary ---
Date of Service November 26, 2020 Admission HPI Per Admitting Provider Chuck Gonzalez is a 59yo male with multiple medical problems presenting with shortness of breath. Patient is a long-time smoker, has history of COPD. He reports that for the last week he has been feeling short of breath at rest and with exertion. He has cough productive for thick, yellow sputum and associated chest discomfort. He denies fevers, chills, palpitations, orthopnea, edema, weight gain. Patient states that he pulled an old oxygen tank out of his basement and has been using that intermittently. He does not have inhalers at home. He reports difficulty obtaining his medications. He states that he has insurance but many of his medications are not covered. As a result he has been skipping medications and "rationing" his insulin to make it last longer. On arrival to the ER patient afebrile, hypertensive otherwise stable. Saturating 89% on room air. ER Course: Albuterol, Dexamethasone, NSS x 1L Admission Exam Per Admitting Provider General: patient resting comfortably, NAD, non-toxic in appearance, AA&O x 4 Skin: warm, dry, intact, no rashes or lesions HEENT: NC/AT, PERRL, EOMI, anicteric sclera, conjunctiva without injection, external ear normal to inspection and nontender, nares patent, moist mucus membranes, dentition intact, no oropharyngeal lesions, neck supple, trachea midline, no LAD, no thyromegaly, no JVD Heart: +S1/S2, regular, no m/r/g Lungs: equal air entry bilaterally, diffusely coarse breath sounds with end- expiratory wheezing, cough with deep breathing productive for thick yellow s putum Abd: +BS, soft, NT/ND, no masses/organomegaly/ascites Ext: warm, 2+ pulses in UE/LE bilaterally, no clubbing/cyanosis or edema Neuro: nonfocal, patient AA&O x 4, speech intact, no facial droop, moving all extremities on command with equal strength 5/5 Principal Diagnosis Working diagnoses: 1. Acute exacerbation of COPD 2. Hypoxemia 3. Hyperglycemia in the setting of uncontrolled diabetes mellitus 4. ? Pneumonitis Discharge Exam General: Resting comfortably at bedside. Currently speaking full sentences on ambient air. Pulse ox fluctuating between 89 and 91%. Cardiac: RRR but distant Lungs: No conversational dyspnea. Diminished breath sounds throughout with end expiratory wheezes predominantly in the bases. Coarse rhonchi that clears with coughing. Abdomen: Normoactive X4. Soft and nontender in all quadrants. Extremities: No peripheral clubbing cyanosis or edema Discharge Data Allergies Allergy/AdvReac Type Severity Reaction Status Date / Time No Known Allergies Allergy Verified 11/25/20 23:52 Consultations Diagnostic Findings CXR - by my interpretation, hyperinflation, possible developing RLL infiltrate Hospital Course (1) COPD exacerbation: * Patient claims that he "just came here to get prescribed oxygen and get a breathing treatment". * I had a lengthy discussion with the patient that although he may not feel far from his baseline, I do not feel that he is quite ready to be discharged. He was hypoxic upon presentation to the ED, he still has diminished breath sounds throughout with wheezes. I believe he would benefit from additional IV steroids, added pulmonary toilet, mucolytic agents, antitussives and continued empiric antibiotic therapy * Furthermore, I explained that he may require supplemental oxygen. Currently at rest, his pulse ox is between 89 and 91% I explained that the qualifying numbers 88%. I encouraged a two-step be performed to see if he does desaturate to 88% but he has refused. He claims that he can "continue using his sister's oxygen". I explained that this is not trejo as his sister would require the oxygen prescribed to her. At any rate, he claims that he feels well and is choosing to sign out AGAINST MEDICAL ADVICE. * Patient is aware of the risks including worsening respiratory status, respiratory failure, and * I have sent a prescription for empiric antibiotic therapy, tapering course of prednisone, and DuoNeb for in his nebulizer to at least provide treatment. * I have encouraged patient to return to the ED if his symptoms worsen * Patient voices understanding and risks discussed with patient with nurse at bedside (2) Hyperglycemia due to type 2 diabetes mellitus: * Currently with uncontrolled diabetes mellitus and hyperglycemia. In the setting of steroids, blood sugars are going to become more uncontrolled. * With blood sugars greater than 300, would benefit from an insulin drip to prevent ketosis. Patient refuses. * Discussion with patient that continued hyperglycemia can cause metabolic acidosis and further worsen his respiratory status causing respiratory failure and . Patient understands and has decided to sign out AGAINST MEDICAL ADVICE. Risks discussed with patient with nurse at bedside. (3) Pneumonitis: * Despite patient signing out AMA, I have provided an Rx for Omnicef, tapering course of prednisone, and DuoNeb treatment. * I encourage patient to return to the ED for any new or worsening symptoms * Patient to follow-up with his PCP (4) Chronic hepatitis C with cirrhosis: Compensated. Elevated CSI=389, FGH=109, Plt = 66 -Repeat LFTs in AM (5) Alcoholic cirrhosis of liver: (6) Hypertension: Chronic. Blood pressure acceptable at 130/75 -Continue Losartan 100mg po qHS F/E/N- Heplock. Mg repletion with 400mg po BID x 3 days, CC diet as tolerated Ppx - low risk for DVT. Encourage ambulation Code - DNR/DNI Dispo - Admit to Med-Surge Patient states that he MUST be out of the hospital Sunday AM at the latest as he has someone coming to fix his car Case Management consultation placed to assist patient with obtaining his home medications Total Time Total Time Spent Total Time Spent (In Minutes): 60 min Total Time Includes: Examination of the Patient, Discharge Planning, Medication Reconciliation and Communication With Other Providers Discharge Plan Discharge Items Patient Disposition: Against Medical Advice Reason For Visit: COPD EXACERBATION, HYPERGLYCEMIA Condition on Discharge: Fair Activity: Resume your previous activity Non-emergency contact: Primary Care Provider Follow-up/Referrals: Harley Jaramillo PA-C [Primary Care Provider] - Pending Studies at Discharge: No Stand-Alone Forms: My [facility], Smoking Cessation Medications and DC Order Prescriptions: New ipratropium-albuterol 0.5 mg-3 mg(2.5 mg base)/3 mL Solution For Nebulization 3 ml NEB Q4R PRN (Reason: wheezing/sob) Qty: 50 RF: 0 magnesium oxide 400 mg (241.3 mg magnesium) Tablet 400 mg PO DAILY Qty: 30 RF: 0 prednisone 10 mg tablets,dose pack 10 mg PO DIRECTED Qty: 21 RF: 0 cefdinir 300 mg capsule 300 mg PO BID 10 Days Qty: 20 RF: 0 Continued omeprazole 40 mg capsule,delayed release(DR/EC) 40 mg PO QAM RF: 0 losartan 100 mg tablet 100 mg PO HS RF: 0 buprenorphine-naloxone 8-2 mg film 2 film sublingual DAILY RF: 0 gabapentin 800 mg Tablet 1,600 mg PO BID RF: 0 insulin lispro [Humalog U-100 Insulin] 100 unit/mL Solution 14 unit SUBCUT TIDM RF: 0 Lantus Solostar U-100 Insulin 100 unit/mL (3 mL) Insulin Pen 40 unit SUBCUT BID RF: 0 vitamin B complex-folic acid [Balance B-50 (with folic acid)] 0.4 mg tablet 1 tab PO DAILY RF: 0 aspirin [Aspirin Low Dose] 81 mg Tablet,Delayed Release (Dr/Ec) 81 mg PO DAILY RF: 0 Discharge Orders: Left Against Medical Advice (Routine); Ordered 11/26/20 Ordered By: Gerson Grey Admission Data Admit Date/Time: 11/26/20 00:53 Attending Provider: Gerson Grey Admit Provider: Tracey Leger Primary Care Provider: Harley Jaramillo Other Providers: Tracey Leger Other Interventions: Discharge Summary Assessment (RN) Last Done: 11/26/20 11:14 Supervising Physician Co-Signing Physician Notes Patient case was reviewed on the day of discharge. I agree with the discharge summary by Lizzy MEDRANO. I have reviewed the chart including labs, imaging and plans for discharge. I was unable to see this patient because he left against medical advice prior to my arrival to his room. see the discharge summary for full details Coding Level of Care Code Established Pt D/C DAY MANAGEMENT >30 MINS Patient Type Established Diagnoses COPD exacerbation J44.1 Hyperglycemia due to type 2 diabetes mellitus E11.65; Z79.4 Diabetes mellitus nursing home insulin use: with long lines operator use Pneumonitis J18.9 Chronic hepatitis C with cirrhosis B18.2; K74.60 Alcoholic cirrhosis of liver K70.30 Hypertension I10 Hypertension type: primary hypertension Time Spent (min) 60
== END 2020-11-26 12:39 | disposition left against medical advice (07) | DRG 190 ==
LOC: ED 20:49 → SUATTDRO 11-26 00:53 → 3W 11-26 00:53

== ENCOUNTER 2022-02-20 09:59 | Inpatient (IN) ==
--- NOTE | 2022-02-20 10:38 | Emergency Department Note ---
Impression & Plan Urinary tract infection, Alcoholic cirrhosis of liver, Pancytopenia, Encephalopathy ED Provider Note NAME: KAYODE GREENFIELD JR AGE: 61 SEX: M : 1960 ARRIVES VIA: Walk-In INFORMANT: Patient, ED PROVIDER(S): Levi Collins MD Chief Complaint: Nausea vomiting, shortness of breath, confusion HPI: Patient presents with the above symptoms. The patient states that he has had maybe a dozen episodes of vomiting in the last several days and has noticed an increase in his blood sugar over the last several weeks. The patient states that prior to this his sugars were running the 200s but more recently been in t he 400s. Patient has complained of increasing urinary frequency but no dysuria. The patient has noticed increasing leg swelling with associated orthopnea and shortness of breath. Patient denies any alcohol or tobacco use. The patient has noticed some increasing confusion over the last 2 weeks. Patient denies any head trauma or falls. The patient denies any numbness tingling or focal weakness. ROS: See HPI for pertinent positives and negatives. A total of 10 systems were reviewed and otherwise negative. Past medical history: See below Surgical history: See below Social history: See below Physical Exam: GENERAL: NAD, wearing a mask, non-toxic. Wearing glasses. EYE EXAM: Normal conjunctiva. PERRL, no anisocoria and EOM's grossly intact w/o pain. NECK: Supple, no nuchal rigidity, no adenopathy, non-tender. No signs of meningismus. FROM of the neck with good chin to chest and neck extension. No stridor. LUNGS: Clear to auscultation. Normal chest wall mechanics. HEART: NSR, no MRG. ABDOMEN: Abdomen soft, mild diffuse abdominal pain, not peritonitic, normo- active bowel sounds, no masses, no rebound or guarding. BACK: No CVA TTP. SKIN: No rashes and no bruising. : No evidence of any abscess fluctuance drainage pain or masses and no pain to the perineum or crepitus. Bilateral testes descended. UPPER EXTREMITIES: Upper extremities are grossly normal. LOWER EXTREMITIES: Grossly normal, 1+ symmetric pretibial edema with no calf pain or erythema. NEURO EXAM: Alert and oriented to person place and location, difficulty with time, answers simple arithmetic appropriately, cranial nerves II-XII grossly intact, normal speech, moves all 4 extremities. Differential diagnoses: Reactive airway disease, pneumonia, pneumothorax, COPD, CHF, infections, cardiac ischemia, pulmonary embolism, musculoskeletal, gastrointestinal, as well as other pathologies. Course: Patient was seen and evaluated the bedside. Full history physical exam was performed. Imaging Studies: See Below Cardiac monitoring: An order was placed for continuous cardiac monitoring. The monitor shows a rate of 82 with sinus rhythm. MDM: Patient was seen due to concern for confusion shortness of breath nausea vomiting. Patient did have chest x-ray completed along with CT of the abdomen pelvis. CT of the head also ordered with alcohol, ammonia and urinalysis. Blood work shows mild leukopenia 4.7 and anemia 11.9. Thrombocytopenia at 72. The patient's kidney function is unremarkable with mild hypokalemia. Patient does have elevation in bilirubin AST and ALT. Lipase is normal. Urinalysis d oes show concern for infection which may be contributing to the patient's confusion. BNP troponin are negative. Patient was ordered [address] of the head is negative. The patient's chest x-ray shows no change in mild cardiomegaly and interstitial thickening. The patient CT the abdomen pelvis that showed gallbladder distention and small gallstones. Patient does have right upper quadrant pain so but upper quadrant ultrasound was ordered and I did speak with the general surgery service Ana guadalupe PA-C/Dr. Irene pending right upper quadrant ultrasound. I did speak the on-call medicine service Dr. Mcgee and the patient was admitted to the medicine service. Patient's right upper quadrant ultrasound was pending at the time of admission. Past Med/Surg History Medical History AAA (abdominal aortic aneurysm) per pt, last evaluated 6 mo ago [place] or [facility]? "around 5 cm" -->says was referred to vascular surgery but no appt as of yet Alcoholic cirrhosis Anxiety Bipolar disorder COPD (chronic obstructive pulmonary disease) no inh at present Depression DM type 2 (diabetes mellitus, type 2) IDDM Dysphagia Fibromyalgia Gastroparesis GERD (gastroesophageal reflux disease) Hepatitis C dx 1 mo ago --> per pt, referred to [facility] in [place] for treatment but no appt as of yet History of DVT (deep vein thrombosis) "few years ago" LLE -- unk etiology -- per pt, no treatment at time of dx History of heroin abuse quit 2017 History of kidney stones History of migraine HTN (hypertension) Hyperlipidemia Hypertension Nocturnal hypoxia per pt, prescribed home O2 @ 2 LPM qHS and PRN daily in past but unable to obtain as of late r/t financial struggles. admits to using sister's oxygen at night when able. 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 Sleep apnea non compliant with CPAP Surgical History History of colonoscopy History of ear surgery as a child History of esophagogastroduodenoscopy (EGD) History of tonsillectomy History of tooth extraction S/P excisional debridement LLE Family History Other No family history of adverse response to anesthesia No significant medical problems Social History Smoking Status: Current every day smoker Tobacco Type: Cigarettes Cigarettes Per Day: 20; Second Hand Exposure: Yes; Hx Alcohol Use: No Hx Substance Use: No Preferred Language: Japanese Communication Ability: Effective Supervisor Advice Required: No Beliefs That Will Affect Care: None Current Living Situation: Alone Current Living Situation Comment: sister lives close by Feels Safe at Home: Yes Assistive Devices: Glasses and Oxygen - Continuous Allergies Allergies Allergy/AdvReac Type Severity Reaction Status Date / Time No Known Allergies Allergy Verified 12/28/21 13:39 Home Meds Home Medications Medication Instructions Recorded Confirmed buprenorphine 8 mg-naloxone 2 mg See Rx Instructions .Route .COMPLEX 04/22/19 12/27/21 sublingual film gabapentin 800 mg tablet 800 mg PO QID 08/20/20 12/27/21 insulin glargine 100 unit/mL (3 80 unit subcut BID 08/20/20 12/27/21 mL) subcutaneous pen (Lantus Solostar U-100 Insulin) insulin lispro 100 unit/mL 26 unit subcut TIDM 08/20/20 12/27/21 subcutaneous solution (Humalog U-100 Insulin) aspirin 81 mg tablet,delayed 81 mg PO DAILY 11/25/20 12/27/21 release (Chavo Low Dose Aspirin) furosemide 20 mg tablet 20 mg PO BID PRN as directed 06/01/21 12/27/21 omeprazole 20 mg capsule,delayed 20 mg PO BID 06/01/21 12/27/21 release ergocalciferol (vitamin D2) 1,250 1,250 mcg feeding tube WK 12/27/21 12/27/21 mcg (50,000 unit) capsule ipratropium 0.5 mg-albuterol 3 mg 3 ml inhalation QID PRN Shortness 12/27/21 12/27/21 (2.5 mg base)/3 mL nebulization Of Breath Or Wheezing soln lidocaine 5 % topical ointment 1 applic topical QID PRN Pain 12/27/21 12/27/21 losartan 100 mg tablet 100 mg PO DAILY 12/27/21 12/27/21 ondansetron HCl 4 mg tablet 4 mg PO BID PRN Nausea And Vomiting 12/27/21 12/27/21 Results & Data (ED) Vital Signs Vital Signs - 24 hr 02/20/22 10:06 02/20/22 10:43 02/20/22 11:00 Temperature 36.9 C Temperature Source Oral Pulse Rate 107 H 93 H 97 H Pulse Rate from SpO2 Sensor 94 H 97 H Respiratory Rate 20 19 23 Blood Pressure 168/84 H 166/86 H 147/78 H Blood Pressure Mean 112 112 101 Pulse Oximetry 98 96 95 Oxygen Delivery Method Room Air Room Air Room Air Sepsis Recent Fever Within 48 Hours Yes Sepsis New/Unexplained Change in Mental Status No Sepsis Action Taken by Nursing No Action Required 02/20/22 11:31 02/20/22 12:00 02/20/22 12:30 Temperature Temperature Source Pulse Rate 94 H 91 H 90 Pulse Rate from SpO2 Sensor 91 H 90 Respiratory Rate 15 Blood Pressure 117/58 L 148/77 H 139/66 Blood Pressure Mean 77 100 90 Pulse Oximetry 98 96 94 Oxygen Delivery Method Room Air Room Air Room Air Sepsis Recent Fever Within 48 Hours Sepsis New/Unexplained Change in Mental Status Sepsis Action Taken by Nursing 02/20/22 13:08 02/20/22 13:30 02/20/22 14:40 Temperature Temperature Source Pulse Rate 96 H 92 H Pulse Rate from SpO2 Sensor 95 H 103 H Respiratory Rate 16 17 Blood Pressure 157/79 H 143/77 H Blood Pressure Mean 105 99 Pulse Oximetry 92 95 93 Oxygen Delivery Method Room Air Room Air Room Air Sepsis Recent Fever Within 48 Hours Sepsis New/Unexplained Change in Mental Status Sepsis Action Taken by Nursing 02/20/22 14:41 02/20/22 14:41 Temperature Temperature Source Pulse Rate Pulse Rate from SpO2 Sensor 105 H Respiratory Rate 15 Blood Pressure 173/83 H Blood Pressure Mean 113 Pulse Oximetry 94 Oxygen Delivery Method Room Air Room Air Sepsis Recent Fever Within 48 Hours Sepsis New/Unexplained Change in Mental Status Sepsis Action Taken by Alf Medications Current Medication List: was personally reviewed by me Laboratory Data Attestation: I reviewed the patient's lab results. Result diagrams: 02/20/22 10:41 02/20/22 10:41 Lab Results 02/20/22 02/20/22 02/20/22 Range/Units 10:41 10:41 10:41 WBC 4.72 L (4.8-10.8) K/ul RBC 4.02 L (4.63-6.08) M/uL Hgb 11.9 L (14.0-18.0) g/dl Hct 34.2 L (40.1-51.0) % MCV 85.1 (80.0-100.0) fL MCH 29.6 (25.0-34.0) pg MCHC 34.8 (32.0-36.0) g/dL RDW Std Deviation 50.2 H (36.4-46.3) fL RDW Coeff of Nabeel 15.9 H (11.5-14.5) % Plt Count 72 L (130-400) K/uL MPV 12.3 (9.4-12.4) fL Immature Gran % (Auto) 0.2 % Neut % (Auto) 56.2 % Lymph % (Auto) 28.6 % Greer % (Auto) 11.2 % Eos % (Auto) 3.2 % Baso % (Auto) 0.6 % Neut # (Auto) 2.65 (1.4-6.5) K/uL Lymph # (Auto) 1.35 (1.2-3.4) K/uL Greer # (Auto) 0.53 (0.24-0.82) K/uL Eos # (Auto) 0.15 (0-0.50) K/uL Baso # (Auto) 0.03 (0-0.2) K/uL Immature Gran # (Auto) 0.01 (0.00-0.02) K/uL PT 13.3 H (9.0-12.0) Seconds INR 1.3 H (0.9-1.1) Sodium 136 (136-145) mmol/L Potassium 3.3 L (3.5-5.1) mmol/L Chloride 104 (98-107) mmol/L Carbon Dioxide 24 (21-32) mmol/L Anion Gap 8 (3-11) BUN 14 (6-23) mg/dl Creatinine 0.62 (0.6-1.4) mg/dl Est Cr Clr Drug Dosing 133.9 ml/min Est GFR ( Amer) 125.8 ml/min Est GFR (Non-Af Amer) 108.6 ml/min BUN/Creatinine Ratio 22.6 H (10-20) Glucose 140 H (70-99(Fasting)) mg/dl Calcium 9.0 (8.5-10.1) mg/dl Magnesium (1.7-2.4) mg/dl Total Bilirubin 1.5 H (0.2-1.0) mg/dl AST 104 H (13-39) U/L ALT 56 H (7-52) U/L Alkaline Phosphatase 79 (34-104) U/L Ammonia (18-72) umol/L Troponin I High Sens 15.3 (0-20) pg/ml B-Natriuretic Peptide (0-100) pg/ml Total Protein 6.7 (6.0-8.3) gm/dl Albumin 2.9 L (3.4-5.0) gm/dl Globulin 3.8 (2.5-4.0) gm/dl Albumin/Globulin Ratio 0.8 L (0.9-2) Lipase 12 (11-82) U/L Urine Color Urine Appearance (Clear) Urine pH (4.5-7.5) Ur Specific [place] (1.000-1.030) Urine Protein (Negative) Urine Glucose (UA) (Negative) Urine Ketones (Negative) Urine Blood (Negative) Urine Nitrite (Negative) Urine Bilirubin (Negative) Urine Urobilinogen (Negative) Ur Leukocyte Esterase (Negative) Urine WBC (Auto) (0-5) /hpf Urine RBC (Auto) (0-4) /hpf U Hyaline Cast (Auto) (0-5) /lpf U Epithel Cells (Auto) (0-5) /lpf Urine Bacteria (Auto) (Negative) Ethyl Alcohol mg/dL (<10.0) mg/dl SARS-CoV-2, RNA, NAAT (NEGATIVE) 02/20/22 02/20/22 02/20/22 Range/Units 11:51 11:59 11:59 WBC (4.8-10.8) K/ul RBC (4.63-6.08) M/uL Hgb (14.0-18.0) g/dl Hct (40.1-51.0) % MCV (80.0-100.0) fL MCH (25.0-34.0) pg MCHC (32.0-36.0) g/dL RDW Std Deviation (36.4-46.3) fL RDW Coeff of Nabeel (11.5-14.5) % Plt Count (130-400) K/uL MPV (9.4-12.4) fL Immature Gran % (Auto) % Neut % (Auto) % Lymph % (Auto) % Greer % (Auto) % Eos % (Auto) % Baso % (Auto) % Neut # (Auto) (1.4-6.5) K/uL Lymph # (Auto) (1.2-3.4) K/uL Greer # (Auto) (0.24-0.82) K/uL Eos # (Auto) (0-0.50) K/uL Baso # (Auto) (0-0.2) K/uL Immature Gran # (Auto) (0.00-0.02) K/uL PT (9.0-12.0) Seconds INR (0.9-1.1) Sodium (136-145) mmol/L Potassium (3.5-5.1) mmol/L Chloride (98-107) mmol/L Carbon Dioxide (21-32) mmol/L Anion Gap (3-11) BUN (6-23) mg/dl Creatinine (0.6-1.4) mg/dl Est Cr Clr Drug Dosing ml/min Est GFR ( Amer) ml/min Est GFR (Non-Af Amer) ml/min BUN/Creatinine Ratio (10-20) Glucose (70-99(Fasting)) mg/dl Calcium (8.5-10.1) mg/dl Magnesium (1.7-2.4) mg/dl Total Bilirubin (0.2-1.0) mg/dl AST (13-39) U/L ALT (7-52) U/L Alkaline Phosphatase (34-104) U/L Ammonia 69.0 (18-72) umol/L Troponin I High Sens (0-20) pg/ml B-Natriuretic Peptide 74 (0-100) pg/ml Total Protein (6.0-8.3) gm/dl Albumin (3.4-5.0) gm/dl Globulin (2.5-4.0) gm/dl Albumin/Globulin Ratio (0.9-2) Lipase (11-82) U/L Urine Color Urine Appearance (Clear) Urine pH (4.5-7.5) Ur Specific [place] (1.000-1.030) Urine Protein (Negative) Urine Glucose (UA) (Negative) Urine Ketones (Negative) Urine Blood (Negative) Urine Nitrite (Negative) Urine Bilirubin (Negative) Urine Urobilinogen (Negative) Ur Leukocyte Esterase (Negative) Urine WBC (Auto) (0-5) /hpf Urine RBC (Auto) (0-4) /hpf U Hyaline Cast (Auto) (0-5) /lpf U Epithel Cells (Auto) (0-5) /lpf Urine Bacteria (Auto) (Negative) Ethyl Alcohol mg/dL (<10.0) mg/dl SARS-CoV-2, RNA, NAAT NEGATIVE (NEGATIVE) 02/20/22 02/20/22 02/20/22 Range/Units 11:59 11:59 13:10 WBC (4.8-10.8) K/ul RBC (4.63-6.08) M/uL Hgb (14.0-18.0) g/dl Hct (40.1-51.0) % MCV (80.0-100.0) fL MCH (25.0-34.0) pg MCHC (32.0-36.0) g/dL RDW Std Deviation (36.4-46.3) fL RDW Coeff of Nabeel (11.5-14.5) % Plt Count (130-400) K/uL MPV (9.4-12.4) fL Immature Gran % (Auto) % Neut % (Auto) % Lymph % (Auto) % Greer % (Auto) % Eos % (Auto) % Baso % (Auto) % Neut # (Auto) (1.4-6.5) K/uL Lymph # (Auto) (1.2-3.4) K/uL Greer # (Auto) (0.24-0.82) K/uL Eos # (Auto) (0-0.50) K/uL Baso # (Auto) (0-0.2) K/uL Immature Gran # (Auto) (0.00-0.02) K/uL PT (9.0-12.0) Seconds INR (0.9-1.1) Sodium (136-145) mmol/L Potassium (3.5-5.1) mmol/L Chloride (98-107) mmol/L Carbon Dioxide (21-32) mmol/L Anion Gap (3-11) BUN (6-23) mg/dl Creatinine (0.6-1.4) mg/dl Est Cr Clr Drug Dosing ml/min Est GFR ( Amer) ml/min Est GFR (Non-Af Amer) ml/min BUN/Creatinine Ratio (10-20) Glucose (70-99(Fasting)) mg/dl Calcium (8.5-10.1) mg/dl Magnesium 1.7 (1.7-2.4) mg/dl Total Bilirubin (0.2-1.0) mg/dl AST (13-39) U/L ALT (7-52) U/L Alkaline Phosphatase (34-104) U/L Ammonia (18-72) umol/L Troponin I High Sens (0-20) pg/ml B-Natriuretic Peptide (0-100) pg/ml Total Protein (6.0-8.3) gm/dl Albumin (3.4-5.0) gm/dl Globulin (2.5-4.0) gm/dl Albumin/Globulin Ratio (0.9-2) Lipase (11-82) U/L Urine Color Dark Yellow Urine Appearance Cloudy A (Clear) Urine pH 6.0 (4.5-7.5) Ur Specific [place] 1.022 (1.000-1.030) Urine Protein 3+ H (Negative) Urine Glucose (UA) 1+ H (Negative) Urine Ketones Trace H (Negative) Urine Blood 2+ H (Negative) Urine Nitrite Positive A (Negative) Urine Bilirubin 1+ H (Negative) Urine Urobilinogen Negative (Negative) Ur Leukocyte Esterase Trace H (Negative) Urine WBC (Auto) 10-30 H (0-5) /hpf Urine RBC (Auto) 5-10 H (0-4) /hpf U Hyaline Cast (Auto) 1-5 (0-5) /lpf U Epithel Cells (Auto) 0-5 (0-5) /lpf Urine Bacteria (Auto) 4+ H (Negative) Ethyl Alcohol mg/dL < 10.0 (<10.0) mg/dl SARS-CoV-2, RNA, NAAT (NEGATIVE) Administered Medications Potassium Chloride (K Alejandro / Wtr) 10 meq in 100 mls @ 100 mls/hr IV Q1H REINA Stop: 02/20/22 17:59 Last Admin: 02/20/22 16:19 Dose: 100 mls/hr Documented By: RAJINDER Discontinued Medications Ceftriaxone Sodium (Rocephin) 2,000 mg in 70 mls @ 140 mls/hr IV NOW STA Stop: 02/20/22 14:16 Last Infusion: 02/20/22 15:21 Dose: 0 mls/hr Documented By: Admin: 02/20/22 14:39 Dose: 140 mls/hr Documented By: LAYA Ioversol (Ioversol 350 Mg 100ml Prefilled Syringe) 94 ml IV ONCE ONE Stop: 02/20/22 13:01 Last Admin: 02/20/22 13:00 Dose: 94 ml Documented By: RUBI Ondansetron HCl (Ondansetron Inj 2 Mg/Ml 2 Ml Vial) 4 mg IV NOW STA Stop: 02/20/22 11:08 Last Admin: 02/20/22 11:52 Dose: 4 mg Documented By: LAYA Imaging Data Radiologist's Impression: Abdomen/Pelvis CT 02/20/22 11:07 CT SCAN OF THE ABDOMEN AND PELVIS WITH IV CONTRAST CLINICAL HISTORY: Generalized abdominal pain. Nausea and vomiting. COMPARISON STUDY: Abdominal CT dated 12/16/2018. TECHNIQUE: Following the IV administration of 94 cc of Optiray 350, CT scan of the abdomen and pelvis is performed from the lung bases to the proximal femora. Images are reviewed in the axial, sagittal, and coronal planes. IV contrast was administered without complication. A dose lowering technique was utilized adhering to the principles of ALARA. CT DOSE: 2469.36 mGy.cm FINDINGS: Lung bases: The heart is mildly enlarged and without pericardial effusion. The coronary arteries are densely calcified. The esophagus appears circumferentially thick walled, there is a small hiatal hernia. Emphysematous change is seen at the lung bases. There is bibasilar scarring/atelectasis. No airspace consolidation or pleural effusion is identified. Esophageal varices are noted. Liver: The contrast-enhanced liver is enlarged, measuring 21.1 cm in length. The liver is cirrhotic in morphology, with nodularity of the hepatic surface contour and hypertrophy of the left lobe and caudate. Images and evaluation indicates steatosis. There is no intrahepatic biliary ductal dilatation. The hepatic veins and portal veins are patent. Gallbladder: There are numerous calcified gallstones. The gallbladder is distended. Mild gallbladder wall thickening is nonspecific and there is trace pericholecystic fluid. Spleen: The spleen is markedly enlarged measuring 22.7 cm in length. There are large perisplenic collaterals and gastric varices. Pancreas: There are scattered parenchymal calcifications. The pancreas is atrophic and otherwise grossly unremarkable. Adrenal glands: Unremarkable. Kidneys: The contrast enhanced kidneys are normal in size and without hydronephrosis. The kidneys enhance symmetrically. There are least 2 nonobstructing left renal calculi measuring up to 6 mm. No right renal calculi are seen on this contrast enhanced examination. Abdominal vasculature: There is advanced atherosclerotic calcification and mild ectasia of the abdominal aorta. Bowel: There is moderate colonic fecal retention. No bowel obstruction is identified. The appendix is well-visualized and normal. Peritoneum: No intraperitoneal free air is seen. There is a small volume of perihepatic and pelvic ascites. Lymphadenopathy: There are mildly enlarged upper abdominal lymph nodes, likely related to chronic liver disease. A portacaval node on image #188 measures 1.6 cm in short axis. There are numerous mildly enlarged retroperitoneal lymph nodes which measure up to 1.1 cm in short axis. Pelvic viscera: The prostate gland is diminutive and heterogeneous. The bladder is normal as visualized. Skeletal structures: The skeletal structures are osteopenic. There is mild to moderate lumbosacral spondylosis. No lytic or blastic lesions are seen. IMPRESSION: 1. The gallbladder is distended and there are numerous small calcified gallstones. Mild gallbladder wall thickening is nonspecific and may be related to adjacent hepatocellular disease. There is also nonspecific pericholecystic fluid/ascites. Findings are equivocal for acute cholecystitis which is not e xcluded. Clinical and laboratory correlation will be essential. If there is strong clinical concern for cholecystitis a right upper quadrant ultrasound should be considered. 2. The liver is enlarged, heterogeneous, and cirrhotic in morphology. 3. Marked splenomegaly, a small volume of abdominopelvic ascites, esophageal varices, and upper abdominal collaterals indicate portal hypertension. 4. The esophagus appears diffusely thick-walled. Correlate clinically for evidence of esophagitis. This can be further assessed with endoscopy if clinically warranted. 5. Cardiomegaly and emphysema. 6. Left-sided nephrolithiasis. 7. Mildly enlarged upper abdominal and retroperitoneal lymph nodes are nonspecific and may be related to chronic liver disease. These are similar to previous. 8. Additional findings as above. ACT 112: Negative or not required by law. Electronically signed by: Adriano Sparks M.D. 02/20/2022 1:26 PM Chest X-Ray 02/20/22 11:07 XR chest 1V portable HISTORY: Shortness of breath. COMPARISON: Chest 06/01/2021. FINDINGS: No pneumothorax. No pleural effusions. The cardiac silhouette remains mildly enlarged. There is diffuse thickening, unchanged. Right basilar linear densities favor subsegmental atelectasis. Otherwise, no focal lung consolidations identified. There are calcifications within the aortic knob. IMPRESSION: 1. No change in the mild cardiac megaly and diffuse interstitial thickening. This could be chronic or represent mild congestive change. 2. Right basilar linear densities favor subsegmental atelectasis. ACT 112: Negative or not required by law. Electronically signed by: James Lemus M.D. 02/20/2022 11:[address] 02/20/22 11:07 CT head/brain wo con CLINICAL HISTORY: 61 years-old Male with confusion. Acutely altered mental status TECHNIQUE: Multiple axial CT images of the head were obtained without contrast. A dose lowering technique was utilized adhering to the principles of ALARA. COMPARISON: Head CT 12/16/2018 FINDINGS: No acute intracranial hemorrhage, midline shift, intracranial mass, hydrocephalus, territorial ischemia or abnormal extra-axial collection. Mildly motion degraded exam. Portion of the study was then repeated. Chronic lacunar infarct of the left caudate nucleus. The calvarium is intact. Left mastoid air cells are clear. Large right mastoid effusion. The paranasal sinuses are clear. Developmental incomplete bony fusion involves the posterior arch of C1. Unremarkable soft tissues. IMPRESSION: No acute intracranial abnormality. ACT 112: Negative or not required by law. The above report was generated using voice recognition software. It may contain grammatical, syntax or spelling errors. Electronically signed by: Ramesh Hess M.D. 02/20/2022 1:11 PM Discharge Plan Visit Data Chief Complaint: Vomiting Stated Complaint: VOMITING, NAUSEA ED Provider: Levi Collins Discharge Problem: Urinary tract infection, Alcoholic cirrhosis of liver, Pancytopenia, Encephalopathy Patient Disposition: Admitted As Inpatient Discharge Instructions Interventions: ED Discharge Assessment Last Done: 02/20/22 17:27
[2022-02-20] MEDS ORDERED: ONDANSETRON INJ 2 MG/ML 2 ML VIAL IV STA (11:07)
[2022-02-20 11:30] LABS: Basophils # (auto) 0.03 K/uL (0-0.2); Basophils % (auto) 0.6 %; Eosinophils # (auto) 0.15 K/uL (0-0.50); Eosinophils % (auto) 3.2 %; Hematocrit (blood only) 34.2 % (40.1-51.0); Hemoglobin 11.9 g/dl (14.0-18.0); Immature Granulocytes # (auto) 0.01 K/uL (0.00-0.02); Immature Granulocytes % (auto) 0.2 %; Lymphocytes # (auto) 1.35 K/uL (1.2-3.4); Lymphocytes % (auto) 28.6 %; Mean Platelet Volume 12.3 fL (9.4-12.4); Monocytes # (auto) 0.53 K/uL (0.24-0.82); Monocytes % (auto) 11.2 %; Neutrophils # (auto) 2.65 K/uL (1.4-6.5); Neutrophils % (auto) 56.2 %; Platelet Count 72 K/uL (130-400); White Blood Count 4.72 K/ul (4.8-10.8)
--- NOTE | 2022-02-20 11:44 | XRay Report ---
XR chest 1V portable HISTORY: Shortness of breath. COMPARISON: Chest 06/01/2021. FINDINGS: No pneumothorax. No pleural effusions. The cardiac silhouette remains mildly enlarged. Ther e is diffuse thickening, unchanged. Right basilar linear densities favor subsegmental atelectasis. Ot herwise, no focal lung consolidations identified. There are calcifications within the aortic knob. IMPRESSION: 1. No change in the mild cardiac megaly and diffuse interstitial thickening. This could be chronic or represent mild congestive change. 2. Right basilar linear densities favor subsegmental atelectasis. ACT 112: Negative or not required by law. Electronically signed by: James Lemus M.D. 02/20/2022 11:42 AM
[2022-02-20 11:49] LABS: Troponin I High Sensitivity 15.3 pg/ml (0-20)
[2022-02-20 11:55] LABS: Albumin Globulin Ratio 0.8 (0.9-2); Albumin Level 2.9 gm/dl (3.4-5.0); BUN Creatinine Ratio 22.6 (10-20); Bilirubin,Total 1.5 mg/dl (0.2-1.0); Creatinine Clr Calc Pharmacy 133.9 ml/min; Est GFR (African American) 125.8 ml/min; Est GFR (Non-African American) 108.6 ml/min; Globulin 3.8 gm/dl (2.5-4.0); Potassium 3.3 mmol/L (3.5-5.1); Total Protein 6.7 gm/dl (6.0-8.3)
[2022-02-20 12:12] LABS: Mean Corpuscular Hemoglobin 29.6 pg (25.0-34.0); Mean Corpuscular Hgb Conc 34.8 g/dL (32.0-36.0); Mean Corpuscular Volume 85.1 fL (80.0-100.0); RDW Coefficient of Variation 15.9 % (11.5-14.5); RDW Standard Deviation 50.2 fL (36.4-46.3); Red Blood Count 4.02 M/uL (4.63-6.08)
[2022-02-20] MEDS ORDERED: IOVERSOL 350 MG 100mL Prefilled Syringe IV ONE (13:00)
--- NOTE | 2022-02-20 13:13 | CT Scan Report ---
CT head/brain wo con CLINICAL HISTORY: 61 years-old Male with confusion. Acutely altered mental status TECHNIQUE: Multiple axial CT images of the head were obtained without contrast. A dose lowering tech nique was utilized adhering to the principles of ALARA. COMPARISON: Head CT 12/16/2018 FINDINGS: No acute intracranial hemorrhage, midline shift, intracranial mass, hydrocephalus, territorial ischem ia or abnormal extra-axial collection. Mildly motion degraded exam. Portion of the study was then rep eated. Chronic lacunar infarct of the left caudate nucleus. The calvarium is intact. Left mastoid air cells are clear. Large right mastoid effusion. The paranas al sinuses are clear. Developmental incomplete bony fusion involves the posterior arch of C1. Unremar kable soft tissues. IMPRESSION: No acute intracranial abnormality. ACT 112: Negative or not required by law. The above report was generated using voice recognition software. It may contain grammatical, syntax o r spelling errors. Electronically signed by: Ramesh Hess M.D. 02/20/2022 1:11 PM
[2022-02-20 13:26] LABS: Appearance Urine Cloudy (Clear); Bacteria Urine Automated 4+ (Negative); Blood Urine 2+ (Negative); Color Urine Dark Yellow; Epithelial Cell Urine Auto 0-5 /lpf (0-5); Glucose Urine UA 1+ (Negative); Ketones Urine Trace (Negative); Leukocyte Esterase Urine Trace (Negative); Nitrite Urine Positive (Negative); Protein Urine 3+ (Negative); Specific Gravity Urine 1.022 (1.000-1.030); Urobilinogen Urine Negative (Negative)
--- NOTE | 2022-02-20 13:28 | CT Scan Report ---
CT SCAN OF THE ABDOMEN AND PELVIS WITH IV CONTRAST CLINICAL HISTORY: Generalized abdominal pain. Nausea and vomiting. COMPARISON STUDY: Abdominal CT dated 12/16/2018. TECHNIQUE: Following the IV administration of 94 cc of Optiray 350, CT scan of the abdomen and pelvi s is performed from the lung bases to the proximal femora. Images are reviewed in the axial, sagittal , and coronal planes. IV contrast was administered without complication. A dose lowering technique wa s utilized adhering to the principles of ALARA. CT DOSE: 2469.36 mGy.cm FINDINGS: Lung bases: The heart is mildly enlarged and without pericardial effusion. The coronary arteries are densely calcified. The esophagus appears circumferentially thick walled, there is a small hiatal conner ia. Emphysematous change is seen at the lung bases. There is bibasilar scarring/atelectasis. No airsp jarivs consolidation or pleural effusion is identified. Esophageal varices are noted. Liver: The contrast-enhanced liver is enlarged, measuring 21.1 cm in length. The liver is cirrhotic i n morphology, with nodularity of the hepatic surface contour and hypertrophy of the left lobe and cau date. Images and evaluation indicates steatosis. There is no intrahepatic biliary ductal dilatation. The hepatic veins and portal veins are patent. Gallbladder: There are numerous calcified gallstones. The gallbladder is distended. Mild gallbladder wall thickening is nonspecific and there is trace pericholecystic fluid. Spleen: The spleen is markedly enlarged measuring 22.7 cm in length. There are large perisplenic kedar aterals and gastric varices. Pancreas: There are scattered parenchymal calcifications. The pancreas is atrophic and otherwise eren sly unremarkable. Adrenal glands: Unremarkable. Kidneys: The contrast enhanced kidneys are normal in size and without hydronephrosis. The kidneys enh ance symmetrically. There are least 2 nonobstructing left renal calculi measuring up to 6 mm. No righ t renal calculi are seen on this contrast enhanced examination. Abdominal vasculature: There is advanced atherosclerotic calcification and mild ectasia of the abdomi nal aorta. Bowel: There is moderate colonic fecal retention. No bowel obstruction is identified. The appendix is well-visualized and normal. Peritoneum: No intraperitoneal free air is seen. There is a small volume of perihepatic and pelvic as cites. Lymphadenopathy: There are mildly enlarged upper abdominal lymph nodes, likely related to chronic philippe er disease. A portacaval node on image #[id number] measures 1.6 cm in short axis. There are numerous mildly enlarged retroperitoneal lymph nodes which measure up to 1.1 cm in short axis. Pelvic viscera: The prostate gland is diminutive and heterogeneous. The bladder is normal as visualiz ed. Skeletal structures: The skeletal structures are osteopenic. There is mild to moderate lumbosacral sp ondylosis. No lytic or blastic lesions are seen. IMPRESSION: 1. The gallbladder is distended and there are numerous small calcified gallstones. Mild gallbladder w all thickening is nonspecific and may be related to adjacent hepatocellular disease. There is also no nspecific pericholecystic fluid/ascites. Findings are equivocal for acute cholecystitis which is not excluded. Clinical and laboratory correlation will be essential. If there is strong clinical concern for cholecystitis a right upper quadrant ultrasound should be considered. 2. The liver is enlarged, heterogeneous, and cirrhotic in morphology. 3. Marked splenomegaly, a small volume of abdominopelvic ascites, esophageal varices, and upper abdom inal collaterals indicate portal hypertension. 4. The esophagus appears diffusely thick-walled. Correlate clinically for evidence of esophagitis. Th is can be further assessed with endoscopy if clinically warranted. 5. Cardiomegaly and emphysema. 6. Left-sided nephrolithiasis. 7. Mildly enlarged upper abdominal and retroperitoneal lymph nodes are nonspecific and may be related to chronic liver disease. These are similar to previous. 8. Additional findings as above. ACT 112: Negative or not required by law. Electronically signed by: Adriano Sparks M.D. 02/20/2022 1:26 PM
[2022-02-20 13:32] LABS: Bilirubin Urine 1+ (Negative)
[2022-02-20] MEDS ORDERED: cefTRIAXone SODIUM 2,000 MG/70 ML BAG IV STA (13:47)
--- NOTE | 2022-02-20 13:57 | History & Physical Report ---
Date of Service February 20, 2022 Assessment & Plan (1) Chronic hepatitis C with cirrhosis: Plan: Chuck is a 61-year-old male with a past medical history of recently diagnosed hepatitis C cirrhosis pending initiation of treatment, past IV drug use in remission for 8-10 years, type 2 diabetes mellitus, ELINA noncompliant with CPAP, COPD not on maintenance inhalers, AAA, and hypertension who presents with 1 month of worsening right upper quadrant pain not affected by meals but with CT scan concerning for possible choledocholithiasis Right upper quadrant pain,? Choledocholithiasis 1 month history of worsening right upper quadrant pain, pain is worsened on right upper palpation with some radiation to epigastric CXR: 1. No change in the mild cardiac megaly and diffuse interstitial thickening. This could be chronic or represent mild congestive change.2. Right basilar linear densities favor subsegmental atelectasis. CTA/P: 1. The gallbladder is distended and there are numerous small calcified gallstones. Mild gallbladder wall thickening is nonspecific and may be related to adjacent hepatocellular disease. There is also nonspecific pericholecystic fluid/ascites. Findings are equivocal for acute cholecystitis which is not excluded. Clinical and laboratory correlation will be essential. If there is strong clinical concern for cholecystitis a right upper quadrant ultrasound should be considered.2. The liver is enlarged, heterogeneous, and cirrhotic in morphology.3. Marked splenomegaly, a small volume of abdominopelvic ascites, esophageal varices, and upper abdominal collaterals indicate portal hypertension.4. The esophagus appears diffusely thick-walled. Correlate clinically for evidence of esophagitis. This can be further assessed with endoscopy if clinically warranted.5. Cardiomegaly and emphysema.6. Left-sided nephrolithiasis.7. Mildly enlarged upper abdominal and retroperitoneal lymph nodes are nonspecific and may be related to chronic liver disease. These are similar to previous.8. Additional findings as above. DDx does include GERD/peptic ulcer disease, patient reports black bowel movements but does take Pepto-Bismol. Hemoccult negative on admission, hemoglobin 11.9. EGD 09/08: Normal esophagus, gastritis, normal duodenum. No leukocytosis, Potassium 3.3, sodium normal Creatinine with normal baseline, admitting creatinine 0.62 BSG 140 Anion gap 8 T bili 1.5, AST 104, ALT 56, ammonia 69 CThead: No acute findings RCRI 2 points (preop treatment with insulin, history of congestive heart failure), 10% 30-day risk of WI. CHF does not appear to be acutely decompensated, diabetes is currently well controlled with normal blood sugars. UTI New polyuria UA with 4+ bacteria, nitrites, leukocyte esterase, UC pending BC pending Continue Rocephin Untreated hep C cirrhosis, hx IVDU in remission. Child Dick B (small abdominal pelvic ascites, no encephalopathy, INR less than 1.7, albumin 2.9, bilirubin 1.5). Bilirubin may be artificially elevated in the setting of gallbladder disease as above MELD score 11 History of IV drug use in remission. Patient is hep C positive, diagnosed summer 2020. Is following up with [facility] for treatment of this but was recommended to have right upper quadrant pain addressed first - HIV negative as outpt No acute decompensation will consult GI if required for choledocho above, at this time he has outpatient follow-up for his liver disease and hepatitis and is not decompensated and would keep this. Initial concern for bleeding with black bowel movements, Hemoccult is negative, follow hemoglobin, patient is currently covered with Rocephin for UTI as above - PDMP reviewed. Regular fills for buprenorphine 8 mg, quantity 84 every 28 days last filled 02/17/2022. 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 Diet likely be substantially different in the hospital. We will weightbase, but add pharmacy consult for assistance in management given vast difference and high requirements BSG 140 on admission Target goal [id number], BSG checks AC/at bedtime N.p.o. pending gallbladder ultrasound/surgical consultation COPD - Albuterol daily - No maintenance inhaler use No PFTs available for review No wheezing Would have outpatient follow-up PFTs, follow clinically at this time ELINA CPAP nightly GERD Continue PPI daily Hemoccult negative, globin trended given dark bowel movements but in the setting of Pepto-Bismol use EGD 09/08: Normal esophagus, gastritis, normal duodenum. History of heart failure Per patient, trace edema of the legs bilaterally. Crackles on exam, no overt edema on CXR BNP 74 trop negative on admission - BNP normal - no chest pain/chest pressure on admit - No echo on file, ordered Reported history of AAA CT of the abdomen with contrast shows advanced atherosclerotic calcification and mild ectasia of abdominal aorta. Follow clinically, no acute intervention at this time DVT prophylaxis: SCDs. Pharmacal prophylaxis deferred pending hemoglobin stability with melena, if hemoglobin stable started on Lovenox 10/4 Diet: Heart healthy, low-salt, type II DM once able to eat, on admission n.p.o. pending surgical/gallbladder evaluation CODE STATUS: Full code Disposition: Medical surgical. No acute dysrhythmia, heart failure decompensation, tachyarrhythmia, or acute cardiac decapitation. If patient clinically worsens can transfer to telemetry (2) AAA (abdominal aortic aneurysm): (3) Esophageal dysphagia: (4) GERD (gastroesophageal reflux disease): (5) Hyperglycemia due to type 2 diabetes mellitus: (6) COPD (chronic obstructive pulmonary disease): (7) Hepatitis C: (8) Nocturnal hypoxia: (9) HTN (hypertension): (10) Sleep apnea: History of Present Illness Primary Care Provider: Bobby Chauhan MD Chuck Gonzalez is a 61-year-old male with past medical history of COPD, type 2 diabetes, GERD, alcohol abuse, rib fracture, alcoholic cirrhosis, hypertension, AAA who presents with continued vomiting over the last several days and progressive increase in his blood sugar. Blood sugars have been ranging [id number] at home and gradually increasing and associated with polyuria, orthopnea, and shortness of breath. Progressive RUQ pain 'getting to be unbearable.' Sister was worreid about pain and wanted him to come into the ER. Pain started ~1 month ago. Saw his PCP Dr. Chauhan recommended coming in ER but hadn't and pt wanted to see if he could ride it out. Started intermittently, but more constant last few days. No remitting factors. Doesn't think food affects the pain. Bowel movements have been loose, dark/black 'like coal'. BMs have been dark for ~1-2 months. Has been taking pepto bismol and omeprazole. No iron supplements. Hx of stomach ulcers 'a long time ago.' ~6-8 years ago. Was at [facility] in [place] at the time. +polyuria, -dysuria Follows with family physician ly chauhan. Does not have a liver doctor, is establishing with [facility] First diagnosed with hepatitis C 3 months ago. Not yet treated. Anticipates going to [place] to start treatment from [facility], but was told he needed to have his stomach pain evaluated first. HIV testing was negative Hx of CHF, is not sure of the details. Takes no medications for this. Does endorse swelling in legs and fluid. Medical History: Reviewed Medications: Reviewed Surgical History: Reviewed Allergies: Reviewed Social History: Current smoker, cutting back. 1/2 ppd ~ 20 years. Uses an e- cigarette more recently to cut back. No alcohol use. No recreational drug use in last 10 years. Former regular IVDU. Code Status: Full Code. Surrogate Violet Lambert, on contact list. Allergies Allergy/AdvReac Type Severity Reaction Status Date / Time No Known Allergies Allergy Verified 12/28/21 13:39 Home Medications Medication Instructions Recorded Confirmed Type buprenorphine 8 mg-naloxone 2 mg See Rx Instructions .Route .COMPLEX 04/22/19 12/27/21 History sublingual film gabapentin 800 mg tablet 800 mg PO QID 08/20/20 12/27/21 History insulin glargine 100 unit/mL (3 80 unit subcut BID 08/20/20 12/27/21 History mL) subcutaneous pen (Lantus Solostar U-100 Insulin) insulin lispro 100 unit/mL 26 unit subcut TIDM 08/20/20 12/27/21 History subcutaneous solution (Humalog U-100 Insulin) aspirin 81 mg tablet,delayed 81 mg PO DAILY 11/25/20 12/27/21 History release (Chavo Low Dose Aspirin) furosemide 20 mg tablet 20 mg PO BID PRN as directed 06/01/21 12/27/21 History omeprazole 20 mg capsule,delayed 20 mg PO BID 06/01/21 12/27/21 History release ergocalciferol (vitamin D2) 1,250 1,250 mcg feeding tube WK 12/27/21 12/27/21 History mcg (50,000 unit) capsule ipratropium 0.5 mg-albuterol 3 mg 3 ml inhalation QID PRN Shortness 12/27/21 12/27/21 History (2.5 mg base)/3 mL nebulization Of Breath Or Wheezing soln lidocaine 5 % topical ointment 1 applic topical QID PRN Pain 12/27/21 12/27/21 History losartan 100 mg tablet 100 mg PO DAILY 12/27/21 12/27/21 History ondansetron HCl 4 mg tablet 4 mg PO BID PRN Nausea And Vomiting 12/27/21 12/27/21 History Past Med/Surg History Medical History (Updated 02/20/22 @ 14:25 by Jameel Mcgee MD) AAA (abdominal aortic aneurysm) per pt, last evaluated 6 mo ago [facility]? "around 5 cm" -->says was referred to vascular surgery but no appt as of yet Alcoholic cirrhosis Anxiety Bipolar disorder COPD (chronic obstructive pulmonary disease) no inh at present Depression DM type 2 (diabetes mellitus, type 2) IDDM Dysphagia Fibromyalgia Gastroparesis GERD (gastroesophageal reflux disease) Hepatitis C dx 1 mo ago --> per pt, referred to [facility] in [place] for treatment but no appt as of yet History of DVT (deep vein thrombosis) "few years ago" LLE -- unk etiology -- per pt, no treatment at time of dx History of heroin abuse quit 2017 History of kidney stones History of migraine HTN (hypertension) Hyperlipidemia Hypertension Nocturnal hypoxia per pt, prescribed home O2 @ 2 LPM qHS and PRN daily in past but unable to obtain as of late r/t financial struggles. admits to using sister's oxygen at night when able. 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 Sleep apnea non compliant with CPAP Surgical History History of colonoscopy History of ear surgery as a child History of esophagogastroduodenoscopy (EGD) History of tonsillectomy History of tooth extraction S/P excisional debridement LLE Family History Other No family history of adverse response to anesthesia No significant medical problems Social History Smoking Status: Current every day smoker Tobacco Type: Cigarettes Cigarettes Per Day: 20; Second Hand Exposure: Yes; Hx Alcohol Use: No Hx Substance Use: No Preferred Language: [place] Communication Ability: Effective Clinical Services Professional Required: No Beliefs That Will Affect Care: None Current Living Situation: Alone Current Living Situation Comment: sister lives close by Feels Safe at Home: Yes Assistive Devices: Glasses and Oxygen - Continuous Review of Systems Review of Systems: All systems reviewed & are unremarkable except as noted in Subjective Physical Exam Physical Exam: General: A&Ox3. NAD. Cooperative. HEENT: Atraumatic, normocephalic. Vision/hearing intact Pulm: CTAB A&P. +bibasilar crackles Symmetrical chest rise. No increased work of breathing. No respiratory distress. Cardiac: RRR, -mrg. Radial pulses intact and symmetrical. Abdominal: +TTP at RUQ, +murphys one exam. Some radiation to epigastrum. No rebound/guarding. Ext: contusion overlying L 3rd toe. No crepitus/pain. Extremities warm/dry. 5/5 strength in all extremities. Results & Data Results & Data ([facility]) Vital Signs (Past 12 Hours) Vital Signs Temp Pulse Resp BP Pulse Ox O2 Del Method 02/20/22 12:00 91 H 148/77 H 96 Room Air 02/20/22 11:31 94 H 15 117/58 L 98 Room Air 02/20/22 11:00 97 H 23 147/78 H 95 Room Air 02/20/22 10:43 93 H 19 166/86 H 96 Room Air 02/20/22 10:06 36.9 C 107 H 20 168/84 H 98 Room Air PG Care Time/CCT Total # of Minutes Spent Total Time Spent with Patient: Total time spent is greater than 50% in coordination of care (as documented) at patient's floor/unit and/or counseling patient: Coding Level of Care Code 06722 Initial Inpt Care Lvl 3 Diagnoses Chronic hepatitis C with cirrhosis B18.2; K74.60 AAA (abdominal aortic aneurysm) I71.4 Esophageal dysphagia R13.10 GERD (gastroesophageal reflux disease) K21.9 Esophagitis presence: esophagitis presence not specified Hyperglycemia due to type 2 diabetes mellitus E11.65; Z79.4 Diabetes mellitus shelter insulin use: 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
[2022-02-20 14:28] LABS: INR 1.3 (0.9-1.1); Prothrombin Time 13.3 Seconds (9.0-12.0)
--- NOTE | 2022-02-20 15:27 | Surgery Consultation ---
Date of Consultation February 20, 2022 Assessment & Plan (1) Abdominal pain: This is a 61yM with a PMH of hepatitis C, cirrhosis, COPD, Tobacco use, AAA, HTN who presents to the [facility] ED on 02/20/22 with complaints of abdominal pain. In the ER a CT a/p was performed that revealed a distended gallbladder with chol elithiasis, with equivocal findings of acute cholecystitis. WBC 4.7, Tb: 1.5, AST: 104, ALT: 56, AlkP: 79. On exam patient's abdomen is softly distended with tenderness to palpation in the RUQ and epigastric region. Agree with obtaining a RUQ US for further evaluation, we will also order a HIDA as well. Patient has multiple medical issues and is not an ideal surgical candidate but we will obtain this workup and make further recommendations at that time. (2) Hepatitis C: (3) Alcoholic cirrhosis of liver: Supervising Physician Co-Signing Physician Notes I personally saw and evaluated the patient with Ana Palomo PA-C and agree with the assessment and plan 61-year-old male with history of newly diagnosed hep C cirrhosis, esophageal varices, emphysema, CHF here with abdominal pain and concern for cholecystitis CT images and results personally viewed by myself, he does have a distended gallbladder but otherwise appears normal He is being admitted to the medical service and we will follow along Right upper quadrant ultrasound has been ordered, we will order a HIDA scan to rule out cholecystitis We will keep him n.p.o., give IV antibiotics Due to his multiple medical comorbidities, he may not be a surgical candidate if it is deemed indicated Further recommendations after he gets his right upper quadrant ultrasound and HIDA scan History of Present Illness History of Present Illness This is a 61yM with a PMH of hepatitis C, cirrhosis, COPD, Tobacco use, AAA, HTN who presents to the [facility] ED on 02/20/22 with complaints of abdominal pain. Patient reports his pain has been going on over the last few weeks. In the ER a CT a/p was performed that revealed a distended gallbladder with cholelithiasis, with equivocal findings of acute cholecystitis. Patient denies any nausea/vomiting, fevers/chills, yellowing of the skin/eyes, dark urine or west stools. No prior abdominal surgical history. States the pain has been slowly getting worse and that his doctor has been asking him to come in for evaluation. Allergies Allergy/AdvReac Type Severity Reaction Status Date / Time No Known Allergies Allergy Verified 12/28/21 13:39 Home Medications Medication Instructions Recorded Confirmed Type buprenorphine 8 mg-naloxone 2 mg See Rx Instructions .Route .COMPLEX 04/22/19 12/27/21 History sublingual film gabapentin 800 mg tablet 800 mg PO QID 08/20/20 12/27/21 History insulin glargine 100 unit/mL (3 80 unit subcut BID 08/20/20 12/27/21 History mL) subcutaneous pen (Lantus Solostar U-100 Insulin) insulin lispro 100 unit/mL 26 unit subcut TIDM 08/20/20 12/27/21 History subcutaneous solution (Humalog U-100 Insulin) aspirin 81 mg tablet,delayed 81 mg PO DAILY 11/25/20 12/27/21 History release (Chavo Low Dose Aspirin) furosemide 20 mg tablet 20 mg PO BID PRN as directed 06/01/21 12/27/21 History omeprazole 20 mg capsule,delayed 20 mg PO BID 06/01/21 12/27/21 History release ergocalciferol (vitamin D2) 1,250 1,250 mcg feeding tube WK 12/27/21 12/27/21 History mcg (50,000 unit) capsule ipratropium 0.5 mg-albuterol 3 mg 3 ml inhalation QID PRN Shortness 12/27/21 12/27/21 History (2.5 mg base)/3 mL nebulization Of Breath Or Wheezing soln lidocaine 5 % topical ointment 1 applic topical QID PRN Pain 12/27/21 12/27/21 History losartan 100 mg tablet 100 mg PO DAILY 12/27/21 12/27/21 History ondansetron HCl 4 mg tablet 4 mg PO BID PRN Nausea And Vomiting 12/27/21 12/27/21 History Patient History Medical History AAA (abdominal aortic aneurysm) per pt, last evaluated 6 mo ago [facility] or [facility]? "around 5 cm" -->says was referred to vascular surgery but no appt as of yet Alcoholic cirrhosis Anxiety Bipolar disorder COPD (chronic obstructive pulmonary disease) no inh at present Depression DM type 2 (diabetes mellitus, type 2) IDDM Dysphagia Fibromyalgia Gastroparesis GERD (gastroesophageal reflux disease) Hepatitis C dx 1 mo ago --> per pt, referred to [facility] in [place] for treatment but no appt as of yet History of DVT (deep vein thrombosis) "few years ago" LLE -- unk etiology -- per pt, no treatment at time of dx History of heroin abuse quit 2017 History of kidney stones History of migraine HTN (hypertension) Hyperlipidemia Hypertension Nocturnal hypoxia per pt, prescribed home O2 @ 2 LPM qHS and PRN daily in past but unable to obtain as of late r/t financial struggles. admits to using sister's oxygen at night when able. 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 Sleep apnea non compliant with CPAP Surgical History History of colonoscopy History of ear surgery as a child History of esophagogastroduodenoscopy (EGD) History of tonsillectomy History of tooth extraction S/P excisional debridement LLE Family History Other No family history of adverse response to anesthesia No significant medical problems Social History Smoking Status: Current every day smoker Tobacco Type: Cigarettes Cigarettes Per Day: 20; Second Hand Exposure: Yes; Hx Alcohol Use: No Hx Substance Use: No Preferred Language: German Communication Ability: Effective Registry Np Required: No Beliefs That Will Affect Care: None Current Living Situation: Alone Current Living Situation Comment: sister lives close by Feels Safe at Home: Yes Assistive Devices: Glasses and Oxygen - Continuous Review of Systems Constitutional: no fever and no chills Respiratory: no dyspnea Cardiovascular: no chest pain Gastrointestinal: + abdominal pain; no nausea and no vomiting Integumentary: no yellowing of the skin Physical Exam Physical Exam: awake Constitutional: no acute distress Respiratory: normal respiratory effort Gastrointestinal (Abdomen): Percussion/Palpation: + abdomen tender (RUQ/epigastric ttp ) and abdomen soft Results & Data ([facility]) Vital Signs (Past 12 Hours) Vital Signs Temp Pulse Resp BP Pulse Ox O2 Del Method 02/20/22 13:30 92 H 17 143/77 H 95 Room Air 02/20/22 13:08 96 H 16 157/79 H 92 Room Air 02/20/22 12:30 90 139/66 94 Room Air 02/20/22 12:00 91 H 148/77 H 96 Room Air 02/20/22 11:31 94 H 15 117/58 L 98 Room Air 02/20/22 11:00 97 H 23 147/78 H 95 Room Air 02/20/22 10:43 93 H 19 166/86 H 96 Room Air 02/20/22 10:06 36.9 C 107 H 20 168/84 H 98 Room Air Diagnostic Findings CT SCAN OF THE ABDOMEN AND PELVIS WITH IV CONTRAST CLINICAL HISTORY: Generalized abdominal pain. Nausea and vomiting. COMPARISON STUDY: Abdominal CT dated 12/16/2018. TECHNIQUE: Following the IV administration of 94 cc of Optiray 350, CT scan of the abdomen and pelvis is performed from the lung bases to the proximal femora. Images are reviewed in the axial, sagittal, and coronal planes. IV contrast was administered without complication. A dose lowering technique was utilized adhering to the principles of ALARA. CT DOSE: 2469.36 mGy.cm FINDINGS: Lung bases: The heart is mildly enlarged and without pericardial effusion. The coronary arteries are densely calcified. The esophagus appears circumferentially thick walled, there is a small hiatal hernia. Emphysematous change is seen at the lung bases. There is bibasilar scarring/atelectasis. No airspace consolidation or pleural effusion is identified. Esophageal varices are noted. Liver: The contrast-enhanced liver is enlarged, measuring 21.1 cm in length. The liver is cirrhotic in morphology, with nodularity of the hepatic surface contour and hypertrophy of the left lobe and caudate. Images and evaluation indicates s teatosis. There is no intrahepatic biliary ductal dilatation. The hepatic veins and portal veins are patent. Gallbladder: There are numerous calcified gallstones. The gallbladder is distended. Mild gallbladder wall thickening is nonspecific and there is trace pericholecystic fluid. Spleen: The spleen is markedly enlarged measuring 22.7 cm in length. There are large perisplenic collaterals and gastric varices. Pancreas: There are scattered parenchymal calcifications. The pancreas is atrophic and otherwise grossly unremarkable. Adrenal glands: Unremarkable. Kidneys: The contrast enhanced kidneys are normal in size and without hydronephrosis. The kidneys enhance symmetrically. There are least 2 nonobstructing left renal calculi measuring up to 6 mm. No right renal calculi are seen on this contrast enhanced examination. Abdominal vasculature: There is advanced atherosclerotic calcification and mild ectasia of the abdominal aorta. Bowel: There is moderate colonic fecal retention. No bowel obstruction is identified. The appendix is well-visualized and normal. Peritoneum: No intraperitoneal free air is seen. There is a small volume of perihepatic and pelvic ascites. Lymphadenopathy: There are mildly enlarged upper abdominal lymph nodes, likely related to chronic liver disease. A portacaval node on image #188 measures 1.6 cm in short axis. There are numerous mildly enlarged retroperitoneal lymph nodes which measure up to 1.1 cm in short axis. Pelvic viscera: The prostate gland is diminutive and heterogeneous. The bladder is normal as visualized. Skeletal structures: The skeletal structures are osteopenic. There is mild to moderate lumbosacral spondylosis. No lytic or blastic lesions are seen. IMPRESSION: 1. The gallbladder is distended and there are numerous small calcified gallstones. Mild gallbladder wall thickening is nonspecific and may be related to adjacent hepatocellular disease. There is also nonspecific pericholecystic fluid/ascites. Findings are equivocal for acute cholecystitis which is not excluded. Clinical and laboratory correlation will be essential. If there is strong clinical concern for cholecystitis a right upper quadrant ultrasound angelo uld be considered. 2. The liver is enlarged, heterogeneous, and cirrhotic in morphology. 3. Marked splenomegaly, a small volume of abdominopelvic ascites, esophageal varices, and upper abdominal collaterals indicate portal hypertension. 4. The esophagus appears diffusely thick-walled. Correlate clinically for evidence of esophagitis. This can be further assessed with endoscopy if clinically warranted. 5. Cardiomegaly and emphysema. 6. Left-sided nephrolithiasis. 7. Mildly enlarged upper abdominal and retroperitoneal lymph nodes are nonspecific and may be related to chronic liver disease. These are similar to previous. 8. Additional findings as above. ACT 112: Negative or not required by law. Electronically signed by: Adriano Sparks M.D. 02/20/2022 1:26 PM PG Care Time/CCT Total # of Minutes Spent Total Time Spent with Patient: Total time spent is greater than 50% in coordination of care (as documented) at patient's floor/unit and/or counseling patient: Coding Level of Care Code 38442 Initial Inpt Care Lvl 1 Diagnoses Abdominal pain R10.9 Hepatitis C B19.20 Alcoholic cirrhosis of liver K70.30
[2022-02-20] MEDS: POTASSIUM CHLORIDE / WTR 10 MEQ/100 ML PLCT IV SCH ×3 (16:19→19:29)
[2022-02-20] MEDS ORDERED: ONDANSETRON INJ 2 MG/ML 2 ML VIAL IV PRN (17:27)
[2022-02-20] MEDS ORDERED: PHARMACY GLYCEMIC MGMT CONSULT PRN (17:27)
[2022-02-20] MEDS ORDERED: POLYETHYLENE (MIRALAX) 17 GM PACK PO PRN (17:27)
[2022-02-20] MEDS ORDERED: DEXTROSE 50% 50 ML SYRINGE IV PRN (17:27)
[2022-02-20] MEDS ORDERED: GLUCOSE 10 TAB/TUBE PO PRN (17:27)
[2022-02-20] MEDS ORDERED: GLUCAGON FOR INJ 1 MG VIAL SQ PRN (17:27)
[2022-02-20] MEDS ORDERED: CARBOHYDRATES FOR HYPOGLYCEMIA PO PRN (17:27)
[2022-02-20] MEDS ORDERED: GLUCOSE 40% GEL 15 GM TUBE PO PRN (17:27)
[2022-02-20] MEDS ORDERED: ACETAMINOPHEN 325 MG TAB PO PRN (17:27)
--- NOTE | 2022-02-20 17:51 | XCELERA ---
[id number]
[2022-02-20] MEDS ORDERED: INSULIN ASPART PER UNIT SC SCH ×2 (18:00→21:00)
[2022-02-20] MEDS ORDERED: LANTUS PER UNIT CHARGE SQ ONE (18:00)
[2022-02-20] MEDS: GABAPENTIN 800 MG TAB PO SCH ×2 (19:28→21:03)
--- NOTE | 2022-02-20 19:42 | Nuclear Medicine Report ---
NM hepatobiliary CLINICAL HISTORY: 61 years-old Male with eval for acute madeleine. Acute right upper quadrant abdominal pain TECHNIQUE: Sequential anterior abdominal images were obtained through 30 minutes following the intra venous administration of 5.3 mCi of technetium-99m Choletec. A lateral image was also obtained. COMPARISON: CT abdomen and pelvis of same day FINDINGS: There is prompt, uniform accumulation of the tracer by the liver. There is normal filling of the int rahepatic ducts, common bile duct and normal excretion of the tracer into the duodenum. The gallblad kristen fills normally. The patient was unable to tolerate the 60 minute study, therefore the exam was te rminated at 30 minutes. IMPRESSION: Normal hepatobiliary study. No scintigraphic evidence for acute cholecystitis or common bile duct obstruction. ACT 112: Negative or not required by law. The above report was generated using voice recognition software. It may contain grammatical, syntax o r spelling errors. Electronically signed by: Ramesh Hess M.D. 02/20/2022 7:41 PM
--- NOTE | 2022-02-20 20:35 | Pharmacy Report ---
Pharmacy Glycemic Short Note 2 - Date of Service February 20, 2022 - Glycemic Short BSG Results (Last 24 hours): 02/20/22 02/20/22 02/20/22 10:41 18:53 18:54 Glucose 140 H POC Glucose 60 L* 60 L* 02/20/22 19:17 Glucose POC Glucose 76 OUTPATIENT ANTIDIABETIC REGIMEN: * Lantus 80 units SC BID * Humalog 26 units SC TIDM * HbA1c pending ASSESSMENT: * 61 yo M admitted secondary to nausea and vomiting. Pharmacy has been consulted to assist with inpatient glycemic management. Patient is ordered a T2DM diet but has not eaten yet. * Patient was hypoglycemic upon transfer to the floor, BSG 60 mg/dL x 2. Given juice and BSG improved to 76 mg/dL. * Will start Novolog based on weight/stress of 3 and add an overnight check. * Will hold off on any basal insulin tonight given high doses at home, unknown control, and lack of PO intake. PLAN FOR INPATIENT GLYCEMIC CONTROL: * Basal insulin * None * Bolus insulin * NovoLog per scale ACHS or Q6hrs while NPO * Goal Range: Low 110 mg/dL - High 140 mg/dL * Correction Factor: 15 mg/dL/unit * Nutritional / Prandial insulin per carb ratio of 1 unit per 5 grams CHO consumed
[2022-02-20] MEDS ORDERED: buprenorphine HCL 8 MG SUBL SL SCH (21:00)
[2022-02-20] MEDS: HEPARIN SOD 5,000 UNIT/0.5 ML VIAL SQ SCH (21:03)
[2022-02-21] MEDS ORDERED: INSULIN ASPART PER UNIT SC ONE (02:00)
[2022-02-21] MEDS: HEPARIN SOD 5,000 UNIT/0.5 ML VIAL SQ SCH (06:28)
[2022-02-21 07:15] LABS: Hematocrit (blood only) 32.7 % (40.1-51.0); Hemoglobin 11.3 g/dl (14.0-18.0); Mean Corpuscular Hemoglobin 29.8 pg (25.0-34.0); Mean Corpuscular Hgb Conc 34.6 g/dL (32.0-36.0); Mean Corpuscular Volume 86.3 fL (80.0-100.0); Mean Platelet Volume 10.8 fL (9.4-12.4); Platelet Count 43 K/uL (130-400); RDW Coefficient of Variation 16.2 % (11.5-14.5); RDW Standard Deviation 51.6 fL (36.4-46.3); Red Blood Count 3.79 M/uL (4.63-6.08)
[2022-02-21 07:21] LABS: INR 1.3 (0.9-1.1); Prothrombin Time 13.5 Seconds (9.0-12.0)
--- NOTE | 2022-02-21 07:34 | Ultrasound Report ---
ULTRASOUND RIGHT UPPER QUADRANT ABDOMEN CLINICAL HISTORY: Nausea and vomiting. COMPARISON STUDY: Abdominal CT dated 02/20/2022. Nuclear hepatobiliary scan dated 02/20/2022. TECHNIQUE: Real-time, grayscale, and color flow sonography of the right upper quadrant of the abdomen was performed. Images are reviewed in the transverse and longitudinal planes. FINDINGS: Liver: The liver is enlarged, cirrhotic in morphology, and heterogeneous in echotexture. There is no intrahepatic biliary ductal dilatation. The main portal vein is patent. Gallbladder: The gallbladder is distended. There are numerous small gallstones and biliary sludge. Th e gallbladder wall is mildly thickened measuring up to 5 mm. There is pericholecystic fluid. A sonogr aphic King's sign could not be assessed as the patient received analgesia. The common bile duct amada sures up to 0.5 cm in diameter. Pancreas: Visualized portions of the pancreatic head and body are normal in appearance. The splenic v ein is patent. Right kidney: Survey images of the right kidney demonstrate normal size and echotexture. There is no hydronephrosis. Ascites: There is trace upper abdominal ascites. IMPRESSION: 1. Distended gallbladder containing both stones and sludge. 2. Gallbladder wall thickening is nonspecific and may be related to adjacent hepatocellular disease. There is also upper abdominal ascites. A sonographic King's sign could not be assessed, and the son ographic findings are equivocal for acute cholecystitis. Acute cholecystitis is considered unlikely g iven the normal hepatobiliary scan performed yesterday. Clinical correlation will be required. 3. The liver is enlarged, heterogeneous, and cirrhotic in morphology. ACT 112: Negative or not required by law. Electronically signed by: Adriano Sparks M.D. 02/21/2022 7:32 AM
[2022-02-21 08:17] LABS: Albumin Globulin Ratio 0.8 (0.9-2); Albumin Level 2.7 gm/dl (3.4-5.0); BUN Creatinine Ratio 18.5 (10-20); Bilirubin,Total 0.9 mg/dl (0.2-1.0); Calcium 8.3 mg/dl (8.5-10.1); Creatinine Clr Calc Pharmacy 156.4 ml/min; Est GFR (African American) 123.4 ml/min; Est GFR (Non-African American) 106.5 ml/min; Globulin 3.2 gm/dl (2.5-4.0); Total Protein 5.9 gm/dl (6.0-8.3)
[2022-02-21 08:26] LABS: Estimated Average Glucose 235 mg/dl; Hemoglobin A1C 9.8 % (4.5-5.6)
--- NOTE | 2022-02-21 08:34 | Surgery Progress Note ---
Date of Service February 21, 2022 Assessment & Plan (1) Abdominal pain: Plan: Patient with history of cirrhosis and hep C here with abdominal pain Today labs show WBC 3, Tb : 0.9, AST:99, ALT:57, AlkP:76 Workup has been obtained to eval for cholecystitis...HIDA obtained is negative. RUQ US with gallbladder findings of wall thickening and surrounding ascites likely secondary to surrounding hepatocellular disease Abdominal pain is slightly improved from admission He is tolerating a regular diet currently No plans for surgical intervention, we will sign off, please call with questions/concerns. Admission and Anticipated Discharge Date Admission Date: February 20, 2022 Supervising Physician Co-Signing Physician Notes I personally saw and evaluated the patient with Ana Palomo PA-C and agree with the assessment and plan 61-year-old male with history of newly diagnosed hep C cirrhosis, esophageal varices, emphysema, CHF here with abdominal pain and concern for cholecystitis HIDA images and results personally viewed by me, there is filling of the gallbladder without signs of cholecystitis There is no need for any surgical intervention Surgical sign off at this time, please call with any questions or concerns Subjective Patient feeling a bit better than yesterday regarding abdominal pain. denies nausea/vomiting. Physical Exam Physical Exam: awake,alert, no distress Respiratory: normal respiratory effort Gastrointestinal (Abdomen): Percussion/Palpation: + abdomen tender (some discomfort to palpation of RUQ) and abdomen soft Results & Data ([facility]) Vital Signs (Past 12 Hours) Vital Signs Temp Pulse Resp BP Pulse Ox O2 Del Method 02/21/22 07:27 36.8 C 77 16 129/68 93 Room Air 02/20/22 21:22 36.7 C 98 H 16 151/71 H 94 Room Air PG Care Time/CCT Total # of Minutes Spent Total Time Spent with Patient: Total time spent is greater than 50% in coordination of care (as documented) at patient's floor/unit and/or counseling patient: Coding Level of Care Code 21720 Subseq Hosp Care Lvl 1 Diagnoses Abdominal pain R10.9
[2022-02-21 08:49] LABS: Basophils # (auto) 0.02 K/uL (0-0.2); Basophils % (auto) 0.7 %; Eosinophils # (auto) 0.14 K/uL (0-0.50); Eosinophils % (auto) 4.7 %; Immature Granulocytes # (auto) 0.01 K/uL (0.00-0.02); Immature Granulocytes % (auto) 0.3 %; Lymphocytes # (auto) 1.18 K/uL (1.2-3.4); Lymphocytes % (auto) 39.3 %; Monocytes # (auto) 0.23 K/uL (0.24-0.82); Monocytes % (auto) 7.7 %; Neutrophils # (auto) 1.42 K/uL (1.4-6.5); Neutrophils % (auto) 47.3 %
[2022-02-21] MEDS ORDERED: ASPIRIN 81 MG ECTAB PO SCH (09:00)
[2022-02-21] MEDS ORDERED: buprenorphine HCL 8 MG SUBL SL SCH (09:00)
[2022-02-21] MEDS ORDERED: LOSARTAN POTASSIUM 50 MG TAB PO SCH (09:00)
[2022-02-21] MEDS ORDERED: LANTUS PER UNIT CHARGE SQ SCH ×2 (09:00)
--- NOTE | 2022-02-21 12:27 | Discharge Summary ---
Date of Service February 21, 2022 Admission HPI Per Admitting Provider Chuck Gonzalez is a 61-year-old male with past medical history of COPD, type 2 diabetes, GERD, alcohol abuse, rib fracture, alcoholic cirrhosis, hypertension, AAA who presents with continued vomiting over the last several days and progressive increase in his blood sugar. Blood sugars have been ranging [id number] at home and gradually increasing and associated with polyuria, orthopnea, and shortness of breath. Progressive RUQ pain 'getting to be unbearable.' Sister was worreid about pain and wanted him to come into the ER. Pain started ~1 month ago. Saw his PCP Dr. Chauhan recommended coming in ER but hadn't and pt wanted to see if he could ride it out. Started intermittently, but more constant last few days. No remitting factors. Doesn't think food affects the pain. Bowel movements have been loose, dark/black 'like coal'. BMs have been dark for ~1-2 months. Has been taking pepto bismol and omeprazole. No iron supplements. Hx of stomach ulcers 'a long time ago.' ~6-8 years ago. Was at [facility] in [place] at the time. +polyuria, -dysuria Follows with family physician ly chauhan. Does not have a liver doctor, is establishing with [facility] First diagnosed with hepatitis C 3 months ago. Not yet treated. Anticipates going to [place] to start treatment from [facility], but was told he needed to have his stomach pain evaluated first. HIV testing was negative Hx of CHF, is not sure of the details. Takes no medications for this. Does endorse swelling in legs and fluid. Medical History: Reviewed Medications: Reviewed Surgical History: Reviewed Allergies: Reviewed Social History: Current smoker, cutting back. 1/2 ppd ~ 20 years. Uses an e- cigarette more recently to cut back. No alcohol use. No recreational drug use in last 10 years. Former regular IVDU. Code Status: Full Code. Surrogate Violet Lambert, on contact list. Principal Diagnosis UTI Hepatitis C with cirrhosis Discharge Exam Not performed, patient left AMA prior to assessment Discharge Data Allergies Allergy/AdvReac Type Severity Reaction Status Date / Time No Known Allergies Allergy Verified 12/28/21 13:39 Consultations 02/20/22 14:10 ED Decision to Admit Stat Ordered Studies 02/20/22 11:07 CT abd pelvis IV con only Stat CT head/brain wo con Stat 02/20/22 13:47 US gallbladder Urgent Diabetes Follow up Diabetes Follow-up Needed for HgbA1c >9% Hospital Course (1) Chronic hepatitis C with cirrhosis: Chuck is a 61-year-old male with a past medical history of recently diagnosed hepatitis C cirrhosis pending initiation of treatment, past IV drug use in remission for 8-10 years, type 2 diabetes mellitus, ELINA noncompliant with CPAP, COPD not on maintenance inhalers, AAA, and hypertension who presents with 1 month of worsening right upper quadrant pain not affected by meals but with CT scan concerning for possible choledocholithiasis Patient HIDA scan negative day of discharge. Patient felt back to normal, left AMA prior to provider assessment. On discussion with nursing staff noted that patient did have a UTI, given risk for lack of follow-up 5 additional days of cefdinir for UTI coverage were called into patient's default pharmacy. Right upper quadrant pain,? Choledocholithiasis 1 month history of worsening right upper quadrant pain, pain is worsened on right upper palpation with some radiation to epigastric CXR: 1. No change in the mild cardiac megaly and diffuse interstitial thickening. This could be chronic or represent mild congestive change.2. Right basilar linear densities favor subsegmental atelectasis. CTA/P: 1. The gallbladder is distended and there are numerous small calcified gallstones. Mild gallbladder wall thickening is nonspecific and may be related to adjacent hepatocellular disease. There is also nonspecific pericholecystic fluid/ascites. Findings are equivocal for acute cholecystitis which is not excluded. Clinical and laboratory correlation will be essential. If there is strong clinical concern for cholecystitis a right upper quadrant ultrasound should be considered.2. The liver is enlarged, heterogeneous, and cirrhotic in morphology.3. Marked splenomegaly, a small volume of abdominopelvic ascites, esophageal varices, and upper abdominal collaterals indicate portal hypertension.4. The esophagus appears diffusely thick-walled. Correlate clinically for evidence of esophagitis. This can be further assessed with endoscopy if clinically warranted.5. Cardiomegaly and emphysema.6. Left-sided nephrolithiasis.7. Mildly enlarged upper abdominal and retroperitoneal lymph nodes are nonspecific and may be related to chronic liver disease. These are similar to previous.8. Additional findings as above. DDx does include GERD/peptic ulcer disease, patient reports black bowel movements but does take Pepto-Bismol. Hemoccult negative on admission, hemoglobin 11.9. EGD 09/08: Normal esophagus, gastritis, normal duodenum. No leukocytosis, Potassium 3.3, sodium normal Creatinine with normal baseline, admitting creatinine 0.62 BSG 140 Anion gap 8 T bili 1.5, AST 104, ALT 56, ammonia 69 CThead: No acute findings RCRI 2 points (preop treatment with insulin, history of congestive heart failure), 10% 30-day risk of TN. CHF does not appear to be acutely decompensated, diabetes is currently well controlled with normal blood sugars. Follow-up gallbladder ultrasound equivocal, HIDA scan negative Surgery was consulted and reviewed above, did not recommend surgical intervention UTI New polyuria UA with 4+ bacteria, nitrites, leukocyte esterase, UC pending BC pending Continue Rocephin Untreated hep C cirrhosis, hx IVDU in remission. Child Dick B (small abdominal pelvic ascites, no encephalopathy, INR less than 1.7, albumin 2.9, bilirubin 1.5). Bilirubin may be artificially elevated in the setting of gallbladder disease as above MELD score 11 History of IV drug use in remission. Patient is hep C positive, diagnosed summer 2020. Is following up with [facility] for treatment of this but was recommended to have right upper quadrant pain addressed first - HIV negative as outpt No acute decompensation will consult GI if required for choledocho above, at this time he has outpatient follow-up for his liver disease and hepatitis and is not decompensated and would keep this. Initial concern for bleeding with black bowel movements, Hemoccult is negative, follow hemoglobin, patient is currently covered with Rocephin for UTI as above - PDMP reviewed. Regular fills for buprenorphine 8 mg, quantity 84 every 28 days last filled 02/17/2022. Type II DM MEDICAL RECORD CONSULTANT includes glargine 80 units twice daily, lispro 26 units 3 times daily M Weight-based substantially different (basal 10 BID CF 40 CR 13) from based on home total daily (basal 60 twice daily, CF 5, ratio 2). Diet likely be substantially different in the hospital. We will weightbase, but add pharmacy consult for assistance in management given vast difference and high requirements BSG 140 on admission Target goal [id number], BSG checks AC/at bedtime N.p.o. pending gallbladder ultrasound/surgical consultation COPD - Albuterol daily - No maintenance inhaler use No PFTs available for review No wheezing Would have outpatient follow-up PFTs, follow clinically at this time ELINA CPAP nightly GERD Continue PPI daily Hemoccult negative, globin trended given dark bowel movements but in the setting of Pepto-Bismol use EGD 09/08: Normal esophagus, gastritis, normal duodenum. History of heart failure Per patient, trace edema of the legs bilaterally. Crackles on exam, no overt edema on CXR BNP 74 trop negative on admission - BNP normal - no chest pain/chest pressure on admit - No echo on file, ordered Reported history of AAA CT of the abdomen with contrast shows advanced atherosclerotic calcification and mild ectasia of abdominal aorta. Follow clinically, no acute intervention at this time DVT prophylaxis: SCDs. Pharmacal prophylaxis deferred pending hemoglobin stability with melena, if hemoglobin stable started on Lovenox 02/21 Diet: Heart healthy, low-salt, type II DM once able to eat, on admission n.p.o. pending surgical/gallbladder evaluation CODE STATUS: Full code Disposition: Medical surgical. No acute dysrhythmia, heart failure decompensation, tachyarrhythmia, or acute cardiac decapitation. If patient clinically worsens can transfer to telemetry (2) AAA (abdominal aortic aneurysm): (3) Esophageal dysphagia: (4) GERD (gastroesophageal reflux disease): (5) Hyperglycemia due to type 2 diabetes mellitus: (6) COPD (chronic obstructive pulmonary disease): (7) Hepatitis C: (8) Nocturnal hypoxia: (9) HTN (hypertension): (10) Sleep apnea: Total Time Total Time Spent Total Time Spent (In Minutes): Time spend day of discharge less than 30 minutes including direct patient care, documentation, review of labs and images, and coordination of care. Discharge Plan Discharge Items Patient Disposition: Against Medical Advice Reason For Visit: RUQ PAIN Activity: As commented below Non-emergency contact: Primary Care Provider Follow-up/Referrals: Bobby Chauhan MD [Primary Care Provider] - Pending Studies at Discharge: No Medications and DC Order Prescriptions: New cefdinir 300 mg capsule 300 mg PO BID 5 Days Qty: 10 0RF Continued gabapentin 800 mg Tablet 800 mg PO QID insulin lispro [Humalog U-100 Insulin] 100 unit/mL Solution 26 unit SUBCUT TIDM insulin glargine [Lantus Solostar U-100 Insulin] 100 unit/mL (3 mL) Insulin Pen 80 unit SUBCUT BID omeprazole 20 mg capsule,delayed release(DR/EC) 20 mg PO BID furosemide 20 mg tablet 20 mg PO BID PRN (Reason: as directed) ondansetron HCl 4 mg tablet 4 mg PO BID PRN (Reason: Nausea And Vomiting) losartan 100 mg tablet 100 mg PO DAILY lidocaine 5 % ointment 1 applic topical QID PRN (Reason: Pain) Rx Instructions: apply to affected area ipratropium-albuterol 0.5 mg-3 mg(2.5 mg base)/3 mL solution for nebulization 3 ml INHALATION QID PRN (Reason: Shortness Of Breath Or Wheezing) aspirin [Chavo Low Dose Aspirin] 81 mg Tablet,Delayed Release (Dr/Ec) 81 mg PO DAILY buprenorphine HCl 8 mg tablet, sublingual 8 mg SUBLINGUAL QAM buprenorphine HCl 8 mg tablet, sublingual 16 mg SUBLINGUAL QPM Krames/Other Patient Handouts: Managing Type 2 Diabetes Admission Data Admit Date/Time: 02/20/22 14:46 Attending Provider: Jameel Mcgee Admit Provider: Jameel Mcgee Primary Care Provider: Bobby Chauhan Other Providers: Jameel Mcgee Coding Level of Care Code D/C DAY MANAGEMENT <30 MINS Diagnoses Chronic hepatitis C with cirrhosis B18.2; K74.60 AAA (abdominal aortic aneurysm) I71.4 Esophageal dysphagia R13.10 GERD (gastroesophageal reflux disease) K21.9 Esophagitis presence: esophagitis presence not specified Hyperglycemia due to type 2 diabetes mellitus E11.65; Z79.4 Diabetes mellitus [employer] insulin use: with [employer] use COPD (chronic obstructive pulmonary disease) J44.9 Hepatitis C B19.20 Nocturnal hypoxia G47.34 HTN (hypertension) I10 Sleep apnea G47.30
== END 2022-02-21 09:19 | disposition left against medical advice (07) | DRG 442 ==
LOC: ED 09:59 → EDINP 14:46 → 3W 17:27
DX: K80.70 Calculus of gallbladder and bile duct without cholecystitis without obstruction; Z79.82 Long term (current) use of aspirin; K21.9 Gastro-esophageal reflux disease without esophagitis; F17.220 Nicotine dependence, chewing tobacco, uncomplicated; K70.31 Alcoholic cirrhosis of liver with ascites; Z79.4 Long term (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; I11.0 Hypertensive heart disease with heart failure; I50.9 Heart failure, unspecified; I85.10 Secondary esophageal varices without bleeding; I71.40 Abdominal aortic aneurysm, without rupture, unspecified; F17.290 Nicotine dependence, other tobacco product, uncomplicated; N39.0 Urinary tract infection, site not specified; J43.9 Emphysema, unspecified; F10.10 Alcohol abuse, uncomplicated; Z91.199 Patient's noncompliance with other medical treatment and regimen due to unspecified reason; G47.33 Obstructive sleep apnea (adult) (pediatric); Z79.899 Other long term (current) drug therapy; E11.65 Type 2 diabetes mellitus with hyperglycemia; Z87.11 Personal history of peptic ulcer disease; B18.2 Chronic viral hepatitis C

== ENCOUNTER 2022-04-15 18:04 | Inpatient (IN) ==
--- NOTE | 2022-04-15 18:15 | Emergency Department Note ---
Impression & Plan RODRIGO (acute kidney injury), Urinary tract infection, Alcoholic cirrhosis of liver, Overdose, Hyperammonemia, Dehydration ED Provider Note NAME: KAYODE GREENFIELD JR AGE: 61 SEX: M : 1960 ARRIVES VIA: Ambulance INFORMANT: [Patient][, ] ED PROVIDER(S): [Levi Collins MD] Chief Complaint: Possible overdose, altered mental status HPI: Patient presents due to concern for possible Suboxone overdose. Patient wa s previously found down in the hallway. The patient's sister thinks that this may be secondary to Suboxone. Per medication review the patient is prescribed 8 mg Suboxone 3 times daily. Patient does have a known history of alcoholism and cirrhosis. Patient was given a dose of Narcan but was noted to decrease his blood pressure. The patient's BSG prior to arrival was in the 1 teens. Unknown whether or not there was any reported fall or trauma but he was found on the ground. Additional history was obtained from the patient's sister stated that she was concerned that he had crushed up gabapentin as well as Suboxone could have taken an overdose. ROS: Unable to obtain secondary to clinical condition peer Past medical history: See below Surgical history: See below Social history: See below Physical Exam: GENERAL: Nontoxic in appearance EYE EXAM: Normal conjunctiva. PERRL, no anisocoria and EOM's grossly intact w/o pain. NECK: Supple, no nuchal rigidity, no adenopathy, non-tender. No signs of meningismus. FROM of the neck with good chin to chest and neck extension. No stridor. LUNGS: Clear to auscultation. Normal chest wall mechanics. HEART: NSR, no MRG. ABDOMEN: Abdomen soft, normo-active bowel sounds, no masses, no rebound or guarding. BACK: No CVA TTP. SKIN: No rashes and no bruising. UPPER EXTREMITIES: Upper extremities are grossly normal. LOWER EXTREMITIES: Grossly normal, no edema. NEURO EXAM: Protecting his airway not awake or alert, does move all 4 extremities. Differential diagnoses: Infection, dehydration, metabolic abnormality, hypo/hyperglycemia, electrolyte disturbance, anemia, hypoxia, cardiac sources, intracerebral event, toxicologic, neurologic, as well as other pathologies. Course: Patient was seen and evaluated the bedside. Full history physical exam was performed. EKG interpreted by me Normal sinus rhythm rate of 89, normal OH and QRS, normal axis no ST elevations. Imaging Studies: See Below Cardiac monitoring: An order was placed for continuous cardiac monitoring. The monitor shows a rate of 85 with sinus rhythm. MDM: Patient was seen due to concern for possible overdose. Patient is maintaining his airway and is arousable. Patient did have blood work completed along with urinalysis drug and tox screen. The patient was ordered a CT of the head. Current blood pressure 110/61. Additional history was obtained from the case assembler who did speak with the sister who stated that she was concerned that maybe the patient had crushed up gabapentin and taken that in addition to Suboxone. The patient has a normal white count hemoglobin of 11. Platelet count is low at 32,000. The patient has had thrombocytopenia in the past. Patient's ABG does not show any evidence of hypercarbia. The patient's creatinine is elevated compared to prior. There is associated hyponatremia and hypokalemia. These were ordered for replacement in addition to his hypocalcemia and hypomagnesemia. Ammonia is elevated. Lactulose enema ordered. Urinalysis does show likely infection. Rocephin was ordered. Patient's talk screen is positive for benzos negative for alcohol and COVID. Chest x-ray shows cardiomegaly and emphysema with pulmonary vascular congestion. CT of the head is negative. Given the patient's multiple electrolyte abnormalities possible overdose in hyperammonemia I did speak with the on-call hospitalist Dr. Rae and the patient was admitted to the medicine service. The patient did become combative and was not able to be verbally redirected. Patient was trying to punch staff. Patient was ordered Zyprexa 5 mg IM. Patient was also placed in restraints due to concern for safety of staff and the patient. Patient was subsequently admitted to the medicine service. Critical Care: I have personally spent 35 minutes of critical care time in direct management of this patient. This includes bedside care, interpretation of diagnostic studies, and testing, discussion with consultants, patient, and family members, and other require inpatient management activities. This 35 minutes is in excess of all separately billable procedures. Past Med/Surg History Medical History AAA (abdominal aortic aneurysm) per pt, last evaluated 6 mo ago [facility] or [facility]? "around 5 cm" -->says was referred to vascular surgery but no appt as of yet Alcoholic cirrhosis Anxiety Bipolar disorder COPD (chronic obstructive pulmonary disease) no inh at present Depression DM type 2 (diabetes mellitus, type 2) IDDM Dysphagia Encephalopathy Fibromyalgia Gastroparesis GERD (gastroesophageal reflux disease) Hepatitis C dx 1 mo ago --> per pt, referred to [facility] in [place] for treatment but no appt as of yet History of DVT (deep vein thrombosis) "few years ago" LLE -- unk etiology -- per pt, no treatment at time of dx History of heroin abuse quit 2018 History of kidney stones History of migraine HTN (hypertension) Hyperlipidemia Hypertension Nocturnal hypoxia per pt, prescribed home O2 @ 2 LPM qHS and PRN daily in past but unable to obtain as of late r/t financial struggles. admits to using sister's oxygen at night when able. 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 Sleep apnea non compliant with CPAP Surgical History History of colonoscopy History of ear surgery as a child History of esophagogastroduodenoscopy (EGD) History of tonsillectomy History of tooth extraction S/P excisional debridement LLE Family History Other No family history of adverse response to anesthesia No significant medical problems Social History Smoking Status: Unknown if ever smoked Tobacco Type: Cigarettes Cigarettes Per Day: 6; Second Hand Exposure: Yes; Hx Alcohol Use: No Hx Substance Use: Yes Last Used Substance Other:: Currently on subutex. Patient states clean for 6 years. Substance Use Type Other:: last used meth 2017 Preferred Language: Greenlandic Communication Ability: Effective Valet Attendant Required: No Beliefs That Will Affect Care: None Current Living Situation: Family Current Living Situation Comment: Lives with sister Feels Safe at Home: Yes Assistive Devices: Glasses and Oxygen - Continuous Allergies Allergies Allergy/AdvReac Type Severity Reaction Status Date / Time No Known Allergies Allergy Verified 04/15/22 19:42 Home Meds Home Medications Medication Instructions Recorded Confirmed gabapentin 800 mg tablet 800 mg PO QID 08/20/20 04/15/22 insulin glargine 100 unit/mL (3 80 unit subcut BID 08/20/20 04/15/22 mL) subcutaneous pen (Lantus Solostar U-100 Insulin) insulin lispro 100 unit/mL 30 unit subcut TIDM 08/20/20 04/15/22 subcutaneous solution (Humalog U-100 Insulin) aspirin 81 mg tablet,delayed 81 mg PO DAILY 11/25/20 04/15/22 release (Chavo Low Dose Aspirin) furosemide 20 mg tablet 20 mg PO BID PRN as directed 06/01/21 04/15/22 omeprazole 20 mg capsule,delayed 20 mg PO BID 06/01/21 04/15/22 release ipratropium 0.5 mg-albuterol 3 mg 3 ml inhalation QID PRN Shortness 12/27/21 04/15/22 (2.5 mg base)/3 mL nebulization Of Breath Or Wheezing soln lidocaine 5 % topical ointment 1 applic topical QID PRN Pain 12/27/21 04/15/22 losartan 100 mg tablet 100 mg PO DAILY 12/27/21 04/15/22 ondansetron HCl 4 mg tablet 4 mg PO BID PRN Nausea And Vomiting 12/27/21 04/15/22 buprenorphine HCl 8 mg sublingual 8 mg sublingual TID 03/30/22 04/15/22 tablet Previous Rx's Medication Instructions Recorded alfuzosin 10 mg tablet,extended 10 mg PO DAILY #30 tabs 03/30/22 release 24 hr Results & Data (ED) Vital Signs Vital Signs - 24 hr 04/15/22 18:15 04/15/22 18:25 04/15/22 18:25 Temperature 36.9 C Temperature Source Oral Pulse Rate 82 Pulse Rate [Apical] Pulse Rate from SpO2 Sensor Respiratory Rate 15 Blood Pressure 110/61 Blood Pressure [Right Arm] Blood Pressure Mean 77 Blood Pressure Mean [Right Arm] Pulse Oximetry 94 95 94 Oxygen Delivery Method Room Air Room Air Sepsis Recent Fever Within 48 Hours No Sepsis New/Unexplained Change in Mental Status N/A Sepsis Action Taken by Nursing No Action Required End-Tidal CO2 15 End Tidal CO2 (18-54mmHg) 04/15/22 18:51 04/15/22 18:44 04/15/22 18:44 Temperature Temperature Source Pulse Rate 102 H Pulse Rate [Apical] 103 H Pulse Rate from SpO2 Sensor 102 H Respiratory Rate 22 14 Blood Pressure 165/84 H 165/84 H Blood Pressure [Right Arm] 165/84 H Blood Pressure Mean 111 111 Blood Pressure Mean [Right Arm] 111 Pulse Oximetry 95 97 Oxygen Delivery Method Room Air Sepsis Recent Fever Within 48 Hours Sepsis New/Unexplained Change in Mental Status Sepsis Action Taken by Nursing End-Tidal CO2 21 End Tidal CO2 (18-54mmHg) 24 04/15/22 19:45 04/15/22 20:42 04/15/22 20:45 Temperature Temperature Source Pulse Rate 88 97 H 99 H Pulse Rate [Apical] Pulse Rate from SpO2 Sensor 89 98 H 92 H Respiratory Rate 0 L 0 L 0 L Blood Pressure 132/69 159/88 H 165/89 H Blood Pressure [Right Arm] Blood Pressure Mean 90 111 114 Blood Pressure Mean [Right Arm] Pulse Oximetry 96 95 95 Oxygen Delivery Method Sepsis Recent Fever Within 48 Hours Sepsis New/Unexplained Change in Mental Status Sepsis Action Taken by Nursing End-Tidal CO2 End Tidal CO2 (18-54mmHg) 04/15/22 21:05 04/15/22 21:10 04/15/22 21:20 Temperature Temperature Source Pulse Rate 120 H 112 H 102 H Pulse Rate [Apical] Pulse Rate from SpO2 Sensor 120 H 113 H 101 H Respiratory Rate 0 L 0 L 0 L Blood Pressure 132/62 137/60 130/71 Blood Pressure [Right Arm] Blood Pressure Mean 85 85 90 Blood Pressure Mean [Right Arm] Pulse Oximetry 92 95 94 Oxygen Delivery Method Sepsis Recent Fever Within 48 Hours Sepsis New/Unexplained Change in Mental Status Sepsis Action Taken by Nursing End-Tidal CO2 End Tidal CO2 (18-54mmHg) 04/15/22 21:50 04/15/22 22:10 04/15/22 22:20 Temperature Temperature Source Pulse Rate 85 110 H 109 H Pulse Rate [Apical] Pulse Rate from SpO2 Sensor 85 110 H 109 H Respiratory Rate 2 L 5 L 5 L Blood Pressure 100/60 173/96 H 168/80 H Blood Pressure [Right Arm] Blood Pressure Mean 73 121 109 Blood Pressure Mean [Right Arm] Pulse Oximetry 93 96 95 Oxygen Delivery Method Sepsis Recent Fever Within 48 Hours Sepsis New/Unexplained Change in Mental Status Sepsis Action Taken by Nursing End-Tidal CO2 11 6 7 End Tidal CO2 (18-54mmHg) Home Medications Current Medication List: was personally reviewed by me Laboratory Data Attestation: I reviewed the patient's lab results. Result diagrams: 04/15/22 19:02 04/15/22 19:02 Lab Results 04/15/22 04/15/22 04/15/22 Range/Units 18:45 18:45 19:02 WBC (4.8-10.8) K/ul RBC (4.63-6.08) M/uL Hgb (14.0-18.0) g/dl Hct (40.1-51.0) % MCV (80.0-100.0) fL MCH (25.0-34.0) pg MCHC (32.0-36.0) g/dL RDW Std Deviation (36.4-46.3) fL RDW Coeff of Nabeel (11.5-14.5) % Plt Count (130-400) K/uL MPV (9.4-12.4) fL Immature Gran % (Auto) % Neut % (Auto) % Lymph % (Auto) % [place] % (Auto) % Eos % (Auto) % Baso % (Auto) % Neut # (Auto) (1.4-6.5) K/uL Lymph # (Auto) (1.2-3.4) K/uL [place] # (Auto) (0.24-0.82) K/uL Eos # (Auto) (0-0.50) K/uL Baso # (Auto) (0-0.2) K/uL Immature Gran # (Auto) (0.00-0.02) K/uL PT (9.0-12.0) Seconds INR (0.9-1.1) APTT (21.0-31.0) Seconds PTT Ratio ABG pH (7.35-7.45) ABG pCO2 (35-46) mmHg ABG pO2 (80-95) mmHg ABG HCO3 (19-24) mmol/L ABG O2 Saturation (90-95) % ABG Base Excess (-9-1.8) mEq/L Huey Test (Pos) Oxygen Given Sodium 129 L (136-145) mmol/L Potassium 2.9 L (3.5-5.1) mmol/L Chloride 96 L (98-107) mmol/L Carbon Dioxide 22 (21-32) mmol/L Anion Gap 11 (3-11) BUN 27 H (6-23) mg/dl Creatinine 1.89 H (0.6-1.4) mg/dl Est Cr Clr Drug Dosing 54.0 ml/min Est GFR ( Amer) 44.0 ml/min Est GFR (Non-Af Amer) 38.0 ml/min BUN/Creatinine Ratio 14.3 (10-20) Glucose 162 H (70-99(Fasting)) mg/dl Osmolality (280-300) mOsm/kg Lactate (0.4-2.0) mmol/L Calcium 8.2 L (8.5-10.1) mg/dl Magnesium 1.5 L (1.7-2.4) mg/dl Total Bilirubin 2.8 H (0.2-1.0) mg/dl Direct Bilirubin (0-0.2) mg/dl AST 86 H (13-39) U/L ALT 42 (7-52) U/L Alkaline Phosphatase 120 H (34-104) U/L Ammonia (18-72) umol/L Troponin I High Sens 14.2 (0-20) pg/ml Total Protein 6.9 (6.0-8.3) gm/dl Albumin 2.9 L (3.4-5.0) gm/dl Globulin 4.0 (2.5-4.0) gm/dl Albumin/Globulin Ratio 0.7 L (0.9-2) Lipase 106 H (11-82) U/L Urine Color Dark Yellow Urine Appearance Turbid A (Clear) Urine pH 5.5 (4.5-7.5) Ur Specific [place] 1.012 (1.000-1.030) Urine Protein 2+ H (Negative) Urine Glucose (UA) Negative (Negative) Urine Ketones Trace H (Negative) Urine Blood 2+ H (Negative) Urine Nitrite Negative (Negative) Urine Bilirubin Negative (Negative) Urine Urobilinogen Negative (Negative) Ur Leukocyte Esterase 3+ H (Negative) Urine WBC (Auto) >30 H (0-5) /hpf Urine RBC (Auto) 0-4 (0-4) /hpf U Hyaline Cast (Auto) 10-30 H (0-5) /lpf U Epithel Cells (Auto) 10-20 H (0-5) /lpf Urine Bacteria (Auto) 4+ H (Negative) Salicylates (3.0-30) mg/dl Urine Opiates Screen Neg (Neg) Ur Methadone, Qual Neg (Neg) Acetaminophen (10-30) ug/ml Urine Barbiturates Neg (Neg) Ur Phencyclidine (PCP) Neg (Neg) U Amphetamin/Meth Scrn Neg (Neg) MDMA (Ecstasy) Screen Neg (Neg) U Benzodiazepines Scrn Pos H (Neg) Ur Cocaine Metabolite Neg (Neg) U Marijuana (THC) Screen Neg (Neg) Ethyl Alcohol mg/dL (<10.0) mg/dl SARS-CoV-2, RNA, NAAT (NEGATIVE) 04/15/22 04/15/22 04/15/22 Range/Units 19:02 19:02 19:02 WBC 5.82 (4.8-10.8) K/ul RBC 3.82 L (4.63-6.08) M/uL Hgb 11.7 L (14.0-18.0) g/dl Hct 32.5 L (40.1-51.0) % MCV 85.1 (80.0-100.0) fL MCH 30.6 (25.0-34.0) pg MCHC 36.0 (32.0-36.0) g/dL RDW Std Deviation 48.0 H (36.4-46.3) fL RDW Coeff of Nabeel 15.7 H (11.5-14.5) % Plt Count 32 L (130-400) K/uL MPV 12.2 (9.4-12.4) fL Immature Gran % (Auto) 0.2 % Neut % (Auto) 76.8 % Lymph % (Auto) 11.9 % [place] % (Auto) 9.6 % Eos % (Auto) 1.2 % Baso % (Auto) 0.3 % Neut # (Auto) 4.47 (1.4-6.5) K/uL Lymph # (Auto) 0.69 L (1.2-3.4) K/uL [place] # (Auto) 0.56 (0.24-0.82) K/uL Eos # (Auto) 0.07 (0-0.50) K/uL Baso # (Auto) 0.02 (0-0.2) K/uL Immature Gran # (Auto) 0.01 (0.00-0.02) K/uL PT (9.0-12.0) Seconds INR (0.9-1.1) APTT (21.0-31.0) Seconds PTT Ratio ABG pH (7.35-7.45) ABG pCO2 (35-46) mmHg ABG pO2 (80-95) mmHg ABG HCO3 (19-24) mmol/L ABG O2 Saturation (90-95) % ABG Base Excess (-9-1.8) mEq/L Huey Test (Pos) Oxygen Given Sodium (136-145) mmol/L Potassium (3.5-5.1) mmol/L Chloride (98-107) mmol/L Carbon Dioxide (21-32) mmol/L Anion Gap (3-11) BUN (6-23) mg/dl Creatinine (0.6-1.4) mg/dl Est Cr Clr Drug Dosing ml/min Est GFR ( Amer) ml/min Est GFR (Non-Af Amer) ml/min BUN/Creatinine Ratio (10-20) Glucose (70-99(Fasting)) mg/dl Osmolality (280-300) mOsm/kg Lactate (0.4-2.0) mmol/L Calcium (8.5-10.1) mg/dl Magnesium (1.7-2.4) mg/dl Total Bilirubin (0.2-1.0) mg/dl Direct Bilirubin (0-0.2) mg/dl AST (13-39) U/L ALT (7-52) U/L Alkaline Phosphatase (34-104) U/L Ammonia (18-72) umol/L Troponin I High Sens (0-20) pg/ml Total Protein (6.0-8.3) gm/dl Albumin (3.4-5.0) gm/dl Globulin (2.5-4.0) gm/dl Albumin/Globulin Ratio (0.9-2) Lipase (11-82) U/L Urine Color Urine Appearance (Clear) Urine pH (4.5-7.5) Ur Specific [place] (1.000-1.030) Urine Protein (Negative) Urine Glucose (UA) (Negative) Urine Ketones (Negative) Urine Blood (Negative) Urine Nitrite (Negative) Urine Bilirubin (Negative) Urine Urobilinogen (Negative) Ur Leukocyte Esterase (Negative) Urine WBC (Auto) (0-5) /hpf Urine RBC (Auto) (0-4) /hpf U Hyaline Cast (Auto) (0-5) /lpf U Epithel Cells (Auto) (0-5) /lpf Urine Bacteria (Auto) (Negative) Salicylates < 3.0 L (3.0-30) mg/dl Urine Opiates Screen (Neg) Ur Methadone, Qual (Neg) Acetaminophen < 3 L (10-30) ug/ml Urine Barbiturates (Neg) Ur Phencyclidine (PCP) (Neg) U Amphetamin/Meth Scrn (Neg) MDMA (Ecstasy) Screen (Neg) U Benzodiazepines Scrn (Neg) Ur Cocaine Metabolite (Neg) U Marijuana (THC) Screen (Neg) Ethyl Alcohol mg/dL < 10.0 (<10.0) mg/dl SARS-CoV-2, RNA, NAAT (NEGATIVE) 04/15/22 04/15/22 04/15/22 Range/Units 19:02 19:04 19:05 WBC (4.8-10.8) K/ul RBC (4.63-6.08) M/uL Hgb (14.0-18.0) g/dl Hct (40.1-51.0) % MCV (80.0-100.0) fL MCH (25.0-34.0) pg MCHC (32.0-36.0) g/dL RDW Std Deviation (36.4-46.3) fL RDW Coeff of Nabeel (11.5-14.5) % Plt Count (130-400) K/uL MPV (9.4-12.4) fL Immature Gran % (Auto) % Neut % (Auto) % Lymph % (Auto) % [place] % (Auto) % Eos % (Auto) % Baso % (Auto) % Neut # (Auto) (1.4-6.5) K/uL Lymph # (Auto) (1.2-3.4) K/uL [place] # (Auto) (0.24-0.82) K/uL Eos # (Auto) (0-0.50) K/uL Baso # (Auto) (0-0.2) K/uL Immature Gran # (Auto) (0.00-0.02) K/uL PT (9.0-12.0) Seconds INR (0.9-1.1) APTT (21.0-31.0) Seconds PTT Ratio ABG pH 7.49 H (7.35-7.45) ABG pCO2 32 L (35-46) mmHg ABG pO2 76 L (80-95) mmHg ABG HCO3 24 (19-24) mmol/L ABG O2 Saturation 98.3 H (90-95) % ABG Base Excess 1.5 (-9-1.8) mEq/L Huey Test Pos (Pos) Oxygen Given ROOM AIR Sodium (136-145) mmol/L Potassium (3.5-5.1) mmol/L Chloride (98-107) mmol/L Carbon Dioxide (21-32) mmol/L Anion Gap (3-11) BUN (6-23) mg/dl Creatinine (0.6-1.4) mg/dl Est Cr Clr Drug Dosing ml/min Est GFR ( Amer) ml/min Est GFR (Non-Af Amer) ml/min BUN/Creatinine Ratio (10-20) Glucose (70-99(Fasting)) mg/dl Osmolality 277 L (280-300) mOsm/kg Lactate (0.4-2.0) mmol/L Calcium (8.5-10.1) mg/dl Magnesium (1.7-2.4) mg/dl Total Bilirubin (0.2-1.0) mg/dl Direct Bilirubin (0-0.2) mg/dl AST (13-39) U/L ALT (7-52) U/L Alkaline Phosphatase (34-104) U/L Ammonia 155.0 H (18-72) umol/L Troponin I High Sens (0-20) pg/ml Total Protein (6.0-8.3) gm/dl Albumin (3.4-5.0) gm/dl Globulin (2.5-4.0) gm/dl Albumin/Globulin Ratio (0.9-2) Lipase (11-82) U/L Urine Color Urine Appearance (Clear) Urine pH (4.5-7.5) Ur Specific [place] (1.000-1.030) Urine Protein (Negative) Urine Glucose (UA) (Negative) Urine Ketones (Negative) Urine Blood (Negative) Urine Nitrite (Negative) Urine Bilirubin (Negative) Urine Urobilinogen (Negative) Ur Leukocyte Esterase (Negative) Urine WBC (Auto) (0-5) /hpf Urine RBC (Auto) (0-4) /hpf U Hyaline Cast (Auto) (0-5) /lpf U Epithel Cells (Auto) (0-5) /lpf Urine Bacteria (Auto) (Negative) Salicylates (3.0-30) mg/dl Urine Opiates Screen (Neg) Ur Methadone, Qual (Neg) Acetaminophen (10-30) ug/ml Urine Barbiturates (Neg) Ur Phencyclidine (PCP) (Neg) U Amphetamin/Meth Scrn (Neg) MDMA (Ecstasy) Screen (Neg) U Benzodiazepines Scrn (Neg) Ur Cocaine Metabolite (Neg) U Marijuana (THC) Screen (Neg) Ethyl Alcohol mg/dL (<10.0) mg/dl SARS-CoV-2, RNA, NAAT (NEGATIVE) 04/15/22 04/15/22 04/15/22 Range/Units 19:40 19:40 20:00 WBC (4.8-10.8) K/ul RBC (4.63-6.08) M/uL Hgb (14.0-18.0) g/dl Hct (40.1-51.0) % MCV (80.0-100.0) fL MCH (25.0-34.0) pg MCHC (32.0-36.0) g/dL RDW Std Deviation (36.4-46.3) fL RDW Coeff of Nabeel (11.5-14.5) % Plt Count (130-400) K/uL MPV (9.4-12.4) fL Immature Gran % (Auto) % Neut % (Auto) % Lymph % (Auto) % [place] % (Auto) % Eos % (Auto) % Baso % (Auto) % Neut # (Auto) (1.4-6.5) K/uL Lymph # (Auto) (1.2-3.4) K/uL [place] # (Auto) (0.24-0.82) K/uL Eos # (Auto) (0-0.50) K/uL Baso # (Auto) (0-0.2) K/uL Immature Gran # (Auto) (0.00-0.02) K/uL PT 19.5 H (9.0-12.0) Seconds INR 1.9 H (0.9-1.1) APTT 34.5 H (21.0-31.0) Seconds PTT Ratio 1.3 ABG pH (7.35-7.45) ABG pCO2 (35-46) mmHg ABG pO2 (80-95) mmHg ABG HCO3 (19-24) mmol/L ABG O2 Saturation (90-95) % ABG Base Excess (-9-1.8) mEq/L Huey Test (Pos) Oxygen Given Sodium (136-145) mmol/L Potassium (3.5-5.1) mmol/L Chloride (98-107) mmol/L Carbon Dioxide (21-32) mmol/L Anion Gap (3-11) BUN (6-23) mg/dl Creatinine (0.6-1.4) mg/dl Est Cr Clr Drug Dosing ml/min Est GFR ( Amer) ml/min Est GFR (Non-Af Amer) ml/min BUN/Creatinine Ratio (10-20) Glucose (70-99(Fasting)) mg/dl Osmolality (280-300) mOsm/kg Lactate (0.4-2.0) mmol/L Calcium (8.5-10.1) mg/dl Magnesium (1.7-2.4) mg/dl Total Bilirubin (0.2-1.0) mg/dl Direct Bilirubin 1.1 H (0-0.2) mg/dl AST (13-39) U/L ALT (7-52) U/L Alkaline Phosphatase (34-104) U/L Ammonia (18-72) umol/L Troponin I High Sens (0-20) pg/ml Total Protein (6.0-8.3) gm/dl Albumin (3.4-5.0) gm/dl Globulin (2.5-4.0) gm/dl Albumin/Globulin Ratio (0.9-2) Lipase (11-82) U/L Urine Color Urine Appearance (Clear) Urine pH (4.5-7.5) Ur Specific [place] (1.000-1.030) Urine Protein (Negative) Urine Glucose (UA) (Negative) Urine Ketones (Negative) Urine Blood (Negative) Urine Nitrite (Negative) Urine Bilirubin (Negative) Urine Urobilinogen (Negative) Ur Leukocyte Esterase (Negative) Urine WBC (Auto) (0-5) /hpf Urine RBC (Auto) (0-4) /hpf U Hyaline Cast (Auto) (0-5) /lpf U Epithel Cells (Auto) (0-5) /lpf Urine Bacteria (Auto) (Negative) Salicylates (3.0-30) mg/dl Urine Opiates Screen (Neg) Ur Methadone, Qual (Neg) Acetaminophen (10-30) ug/ml Urine Barbiturates (Neg) Ur Phencyclidine (PCP) (Neg) U Amphetamin/Meth Scrn (Neg) MDMA (Ecstasy) Screen (Neg) U Benzodiazepines Scrn (Neg) Ur Cocaine Metabolite (Neg) U Marijuana (THC) Screen (Neg) Ethyl Alcohol mg/dL (<10.0) mg/dl SARS-CoV-2, RNA, NAAT NEGATIVE (NEGATIVE) 04/15/22 Range/Units 21:24 WBC (4.8-10.8) K/ul RBC (4.63-6.08) M/uL Hgb (14.0-18.0) g/dl Hct (40.1-51.0) % MCV (80.0-100.0) fL MCH (25.0-34.0) pg MCHC (32.0-36.0) g/dL RDW Std Deviation (36.4-46.3) fL RDW Coeff of Nabeel (11.5-14.5) % Plt Count (130-400) K/uL MPV (9.4-12.4) fL Immature Gran % (Auto) % Neut % (Auto) % Lymph % (Auto) % [place] % (Auto) % Eos % (Auto) % Baso % (Auto) % Neut # (Auto) (1.4-6.5) K/uL Lymph # (Auto) (1.2-3.4) K/uL [place] # (Auto) (0.24-0.82) K/uL Eos # (Auto) (0-0.50) K/uL Baso # (Auto) (0-0.2) K/uL Immature Gran # (Auto) (0.00-0.02) K/uL PT (9.0-12.0) Seconds INR (0.9-1.1) APTT (21.0-31.0) Seconds PTT Ratio ABG pH (7.35-7.45) ABG pCO2 (35-46) mmHg ABG pO2 (80-95) mmHg ABG HCO3 (19-24) mmol/L ABG O2 Saturation (90-95) % ABG Base Excess (-9-1.8) mEq/L Huey Test (Pos) Oxygen Given Sodium (136-145) mmol/L Potassium (3.5-5.1) mmol/L Chloride (98-107) mmol/L Carbon Dioxide (21-32) mmol/L Anion Gap (3-11) BUN (6-23) mg/dl Creatinine (0.6-1.4) mg/dl Est Cr Clr Drug Dosing ml/min Est GFR ( Amer) ml/min Est GFR (Non-Af Amer) ml/min BUN/Creatinine Ratio (10-20) Glucose (70-99(Fasting)) mg/dl Osmolality (280-300) mOsm/kg Lactate 3.9 H* (0.4-2.0) mmol/L Calcium (8.5-10.1) mg/dl Magnesium (1.7-2.4) mg/dl Total Bilirubin (0.2-1.0) mg/dl Direct Bilirubin (0-0.2) mg/dl AST (13-39) U/L ALT (7-52) U/L Alkaline Phosphatase (34-104) U/L Ammonia (18-72) umol/L Troponin I High Sens (0-20) pg/ml Total Protein (6.0-8.3) gm/dl Albumin (3.4-5.0) gm/dl Globulin (2.5-4.0) gm/dl Albumin/Globulin Ratio (0.9-2) Lipase (11-82) U/L Urine Color Urine Appearance (Clear) Urine pH (4.5-7.5) Ur Specific [place] (1.000-1.030) Urine Protein (Negative) Urine Glucose (UA) (Negative) Urine Ketones (Negative) Urine Blood (Negative) Urine Nitrite (Negative) Urine Bilirubin (Negative) Urine Urobilinogen (Negative) Ur Leukocyte Esterase (Negative) Urine WBC (Auto) (0-5) /hpf Urine RBC (Auto) (0-4) /hpf U Hyaline Cast (Auto) (0-5) /lpf U Epithel Cells (Auto) (0-5) /lpf Urine Bacteria (Auto) (Negative) Salicylates (3.0-30) mg/dl Urine Opiates Screen (Neg) Ur Methadone, Qual (Neg) Acetaminophen (10-30) ug/ml Urine Barbiturates (Neg) Ur Phencyclidine (PCP) (Neg) U Amphetamin/Meth Scrn (Neg) MDMA (Ecstasy) Screen (Neg) U Benzodiazepines Scrn (Neg) Ur Cocaine Metabolite (Neg) U Marijuana (THC) Screen (Neg) Ethyl Alcohol mg/dL (<10.0) mg/dl SARS-CoV-2, RNA, NAAT (NEGATIVE) Administered Medications Discontinued Medications Sodium Chloride (Nss) 500 mls @ 999 mls/hr IV .Q31M REINA Stop: 04/15/22 19:00 Last Admin: 04/15/22 19:43 Dose: 999 mls/hr Documented By: TEO Ceftriaxone Sodium (Rocephin) 2,000 mg in 70 mls @ 140 mls/hr IV NOW STA Stop: 04/15/22 20:15 Last Admin: 04/15/22 20:45 Dose: 140 mls/hr Documented By: TEO Magnesium Sulfate/Dextrose (Magnesium Sulfate / D5w) 1 gm in 100 mls @ 100 mls/hr IV NOW STA Stop: 04/15/22 20:45 Last Admin: 04/15/22 21:00 Dose: 100 mls/hr Documented By: TEO Calcium Gluconate () 1,000 mg in 60 mls @ 240 mls/hr IV NOW STA Stop: 04/15/22 20:00 Last Admin: 04/15/22 19:58 Dose: 240 mls/hr Documented By: TEO Potassium Chloride (K Alejandro / Wtr) 10 meq in 100 mls @ 100 mls/hr IV Q1H [facility]; Protocol Stop: 04/15/22 21:59 Last Admin: 04/15/22 22:10 Dose: 100 mls/hr Documented By: TEO Olanzapine (Olanzapine 10 Mg/2.1 Ml Sdv) 5 mg IM NOW STA Stop: 04/15/22 20:53 Last Admin: 04/15/22 20:56 Dose: 5 mg Documented By: TEO Olanzapine (Olanzapine 10 Mg/2.1 Ml Sdv) Confirm Administered Dose 10 mg IM .STK-MED ONE Stop: 04/15/22 20:53 Last Admin: 04/15/22 23:08 Dose: 10 mg Documented By: TEO Olanzapine (Olanzapine 10 Mg/2.1 Ml Sdv) Confirm Administered Dose 10 mg IM .STK-MED ONE Stop: 04/15/22 23:04 Last Admin: 04/15/22 23:09 Dose: Not Given Documented By: TEO Imaging Data Radiologist's Impression: Chest X-Ray 04/15/22 18:17 SINGLE VIEW CHEST CLINICAL HISTORY: Overdose. FINDINGS: An AP, portable, semierect chest radiograph is compared to study dated 02/20/2022 and correlated with chest CT dated 06/02/2009. The examination is degraded by portable technique and apical lordotic positioning. The heart is enlarged. There is pulmonary vascular congestion. Atherosclerotic calcification of the thoracic aorta. Emphysema is noted and there is diffuse interstitial thickening which is similar to previous. Atelectasis is noted at the lung bases. No large pleural effusion or pneumothorax is seen. The skeletal structures are osteopenic. The bony thorax is grossly intact. IMPRESSION: Cardiomegaly and emphysema with pulmonary vascular congestion. ACT 112: Negative or not required by law. Electronically signed by: Adriano Sparks M.D. 04/15/2022 7:[address] 04/15/22 18:18 CT SCAN OF THE BRAIN WITHOUT IV CONTRAST CLINICAL HISTORY: Overdose. COMPARISON STUDY: CT of the brain dated 02/20/2022 TECHNIQUE: Unenhanced axial CT scan of the brain is performed from the vertex to the skull base. A dose lowering technique was utilized adhering to the principles of ALARA. CT DOSE: 614.27 mGy.cm FINDINGS: Brain parenchyma: There is age-related involutional change noting minimal microangiopathic disease. There is no hemorrhage, mass effect, or evidence of acute territorial ischemia by CT criteria. A chronic lacunar infarct is noted in the left caudate head. Hamilton-white matter differentiation is preserved. No extra- axial fluid collection is seen. Ventricles, sulci, cisterns: Prominent secondary to involutional change. Intracranial vasculature: There is atherosclerotic calcification of the cavernous carotid and vertebral arteries. Calvarium: Unremarkable. Sinuses and mastoids: There is moderate mucosal thickening within the frontal, ethmoid, and sphenoid sinuses. Moderate mucosal thickening is noted in the maxillary antra. There is a right mastoid effusion. The left mastoid air cells are well pneumatized. Cerumen is noted in the left external auditory canal. Orbits: The bony orbits are grossly intact. IMPRESSION: There is no hemorrhage, mass effect, or evidence of acute territorial ischemia by CT criteria. ACT 112: Negative or not required by law. Electronically signed by: Adriano Sparks M.D. 04/15/2022 7:35 PM Discharge Plan Visit Data Chief Complaint: Overdose (Accidental) Stated Complaint: OVERDOSE ED Provider: Levi Collins Discharge Problem: RODRIGO (acute kidney injury), Urinary tract infection, Alcoholic cirrhosis of liver, Overdose, Hyperammonemia, Dehydration Patient Disposition: Admitted As Inpatient Forms Stand Alone Forms: [facility] Prescriptions Prescriptions: No Action alfuzosin 10 mg tablet extended release 24 hr 10 mg PO DAILY Qty: 30 2RF Rx Instructions: administer after the same meal each day gabapentin 800 mg Tablet 800 mg PO QID insulin lispro [Humalog U-100 Insulin] 100 unit/mL Solution 30 unit SUBCUT TIDM insulin glargine [Lantus Solostar U-100 Insulin] 100 unit/mL (3 mL) Insulin Pen 80 unit SUBCUT BID omeprazole 20 mg capsule,delayed release(DR/EC) 20 mg PO BID furosemide 20 mg tablet 20 mg PO BID PRN (Reason: as directed) ondansetron HCl 4 mg tablet 4 mg PO BID PRN (Reason: Nausea And Vomiting) losartan 100 mg tablet 100 mg PO DAILY lidocaine 5 % ointment 1 applic topical QID PRN (Reason: Pain) Rx Instructions: apply to affected area ipratropium-albuterol 0.5 mg-3 mg(2.5 mg base)/3 mL solution for nebulization 3 ml INHALATION QID PRN (Reason: Shortness Of Breath Or Wheezing) aspirin [Chavo Low Dose Aspirin] 81 mg Tablet,Delayed Release (Dr/Ec) 81 mg PO DAILY buprenorphine HCl 8 mg tablet, sublingual 8 mg SUBLINGUAL TID Referrals Referrals: Bobby Leslie MD [Primary Care Provider] -
[2022-04-15] MEDS ORDERED: SODIUM CHLORIDE 0.9% 500 ML IV SCH (18:30)
--- NOTE | 2022-04-15 19:04 | XRay Report ---
SINGLE VIEW CHEST CLINICAL HISTORY: Overdose. FINDINGS: An AP, portable, semierect chest radiograph is compared to study dated 02/20/2022 and correl ated with chest CT dated 06/02/2009. The examination is degraded by portable technique and apical lord otic positioning. The heart is enlarged. There is pulmonary vascular congestion. Atherosclerotic calc ification of the thoracic aorta. Emphysema is noted and there is diffuse interstitial thickening whic h is similar to previous. Atelectasis is noted at the lung bases. No large pleural effusion or pneumo thorax is seen. The skeletal structures are osteopenic. The bony thorax is grossly intact. IMPRESSION: Cardiomegaly and emphysema with pulmonary vascular congestion. ACT 112: Negative or not required by law. Electronically signed by: Adriano Sparks M.D. 04/15/2022 7:01 PM
[2022-04-15 19:08] LABS: Appearance Urine Turbid (Clear); Bacteria Urine Automated 4+ (Negative); Bilirubin Urine Negative (Negative); Blood Urine 2+ (Negative); Color Urine Dark Yellow; Glucose Urine UA Negative (Negative); Ketones Urine Trace (Negative); Leukocyte Esterase Urine 3+ (Negative); Nitrite Urine Negative (Negative); Protein Urine 2+ (Negative); Specific Gravity Urine 1.012 (1.000-1.030); Urobilinogen Urine Negative (Negative); WBC Urine Automated >30 /hpf (0-5); pH Urine 5.5 (4.5-7.5)
[2022-04-15 19:13] LABS: Base Excess ABG 1.5 mEq/L (-9-1.8); HCO3 ABG 24 mmol/L (19-24); Oxygen Saturation ABG 98.3 % (90-95); PCO2 ABG 32 mmHg (35-46); PO2 ABG 76 mmHg (80-95); pH ABG 7.49 (7.35-7.45)
[2022-04-15 19:14] LABS: Basophils # (auto) 0.02 K/uL (0-0.2); Basophils % (auto) 0.3 %; Eosinophils # (auto) 0.07 K/uL (0-0.50); Eosinophils % (auto) 1.2 %; Hematocrit (blood only) 32.5 % (40.1-51.0); Hemoglobin 11.7 g/dl (14.0-18.0); Immature Granulocytes # (auto) 0.01 K/uL (0.00-0.02); Immature Granulocytes % (auto) 0.2 %; Lymphocytes # (auto) 0.69 K/uL (1.2-3.4); Lymphocytes % (auto) 11.9 %; Mean Corpuscular Hemoglobin 30.6 pg (25.0-34.0); Mean Corpuscular Volume 85.1 fL (80.0-100.0); Mean Platelet Volume 12.2 fL (9.4-12.4); Monocytes # (auto) 0.56 K/uL (0.24-0.82); Monocytes % (auto) 9.6 %; Neutrophils # (auto) 4.47 K/uL (1.4-6.5); Neutrophils % (auto) 76.8 %; Platelet Count 32 K/uL (130-400); RDW Coefficient of Variation 15.7 % (11.5-14.5); Red Blood Count 3.82 M/uL (4.63-6.08); White Blood Count 5.82 K/ul (4.8-10.8)
[2022-04-15 19:17] LABS: Allen Test Pos (Pos)
[2022-04-15 19:29] LABS: Amphetamines+Metham, Urine Neg (Neg); Barbiturates, Urine Neg (Neg); Benzodiazepine, Urine Pos (Neg); Cocaine, Urine Neg (Neg); MDMA (Ecstacy), Urine Neg (Neg); Methadone, Urine Neg (Neg); Opiate, Urine Neg (Neg); Phencyclidine, Urine Neg (Neg)
[2022-04-15 19:31] LABS: RBC Urine Automated 0-4 /hpf (0-4)
[2022-04-15 19:33] LABS: Acetaminophen < 3 ug/ml (10-30); Salicylate < 3.0 mg/dl (3.0-30)
[2022-04-15 19:36] LABS: Albumin Globulin Ratio 0.7 (0.9-2); Albumin Level 2.9 gm/dl (3.4-5.0); BUN Creatinine Ratio 14.3 (10-20); Bilirubin,Total 2.8 mg/dl (0.2-1.0); Calcium 8.2 mg/dl (8.5-10.1); Magnesium 1.5 mg/dl (1.7-2.4); Potassium 2.9 mmol/L (3.5-5.1); Total Protein 6.9 gm/dl (6.0-8.3)
--- NOTE | 2022-04-15 19:38 | CT Scan Report ---
CT SCAN OF THE BRAIN WITHOUT IV CONTRAST CLINICAL HISTORY: Overdose. COMPARISON STUDY: CT of the brain dated 02/20/2022 TECHNIQUE: Unenhanced axial CT scan of the brain is performed from the vertex to the skull base. A do se lowering technique was utilized adhering to the principles of ALARA. CT DOSE: 614.27 mGy.cm FINDINGS: Brain parenchyma: There is age-related involutional change noting minimal microangiopathic disease. T here is no hemorrhage, mass effect, or evidence of acute territorial ischemia by CT criteria. A chron ic lacunar infarct is noted in the left caudate head. Hamilton-white matter differentiation is preserved. No extra-axial fluid collection is seen. Ventricles, sulci, cisterns: Prominent secondary to involutional change. Intracranial vasculature: There is atherosclerotic calcification of the cavernous carotid and vertebr al arteries. Calvarium: Unremarkable. Sinuses and mastoids: There is moderate mucosal thickening within the frontal, ethmoid, and sphenoid sinuses. Moderate mucosal thickening is noted in the maxillary antra. There is a right mastoid effusi on. The left mastoid air cells are well pneumatized. Cerumen is noted in the left external auditory c anal. Orbits: The bony orbits are grossly intact. IMPRESSION: There is no hemorrhage, mass effect, or evidence of acute territorial ischemia by CT [place]. ACT 112: Negative or not required by law. Electronically signed by: Adriano Sparks M.D. 04/15/2022 7:35 PM
[2022-04-15 19:41] LABS: Troponin I High Sensitivity 14.2 pg/ml (0-20)
[2022-04-15] MEDS ORDERED: CALCIUM GLUCONATE 1,000 MG/60 ML BAG IV STA (19:46)
[2022-04-15] MEDS ORDERED: cefTRIAXone SODIUM 2,000 MG/70 ML BAG IV STA (19:46)
[2022-04-15] MEDS ORDERED: MAGNESIUM SULFATE / D5W 1 GM/100 ML BAG IV STA (19:46)
--- NOTE | 2022-04-15 20:31 | History & Physical Report ---
Date of Service April 15, 2022 Assessment & Plan (1) Metabolic encephalopathy: Plan: This is a 61-year-old male with a history of cirrhosis, chronic hepatitis C, alcohol abuse, IVDU per chart review, OUD on Suboxone, AAA, GERD, type 2 diabetes, COPD, ELINA, hypertension for syncope and altered mental status which was responsive to Narcan administration in the field. On arrival here, he was found to be agitated with multiple electrolyte abnormalities, an RODRIGO, elevated LFTs, and hyperammonemia at 155. Metabolic Encephalopathy - Likely multifactorial: Suspected opiate overdose, possibly gabapentin overdose (though unclear history to this regard - mentioned by Sister to EMS), hyperammonemia, UTI, electrolyte abnormalities - On arrival, found to be agitated but alert - did require Zyprexa x 1 in the ED, responded well - CT-H negative for acute processes / ABG with respiratory alkalosis on arrival - 7.49 / pCO2 32 / pO2 76 / pHCO3 24 - Spoke with Poison Control re: possible gabapentin overdose: supportive care, OK for BZDs if combative, avoid QTc prolonging agents - Check BCX, procal, lactate to further clarify clinical picture - AWSS initiated - discontinue as appropriate - Work-up and treatment for individual problems as below - Restraints for now. Consider 1:1 if indicated. (2) Overdose: Plan: Overdose - Based on history and responding to Narcan, c/f Suboxone overdose and ?possibly gabapentin - Spoke with poison control, as above - Should consider psychiatry consultation and suicide precautions (3) Urinary tract infection: Plan: Suspected Complicated Urinary Tract Infection - Patient was here approximately 1 mo ago for RUQ pain but left AMA. Had e/o cystitis and bacteruria at that time too with MDR-E. coli based on labs at that time - Historical info: - Urine culture 02/20/2022 demonstrating multidrug-resistant E. coli resistant to ampicillin, ciprofloxacin, levofloxacin, and Bactrim - Seen on 03/30/22 w/ outpatient urology for UTI-like symptoms - prescribed Augmentin, Alfuzosin - UA again showing signs of cystitis with 4+ bacteruria and >30 WBCs (10-20 epis) - Ordered: UA, procal, lactate, BCX -- will also put in for nCT-A/P given his +LUTS, clinical appearance. Hold contrast given RODRIGO - Initiate cefepime for now, likely can narrow to CFTX once more history / clinical status is clarified - Consider urology consultation while here if ongoing clinical picture appears to be infectious for recurrent UTI and LUTS, ?cystoscopy (4) Chronic hepatitis C with cirrhosis: Plan: Acute Liver Injury with Known Hepatic Cirrhosis - with known untreated HCV, present EtOH abuse, h/o IVDU - On arrival: Na 129 / Cr 1.89 / TBili 2.8 with DBili 1.1, AST 86, ALT 42, ALP 120, ammonia 155 ; APAP, salicylate, and EtOH negative ; lipase 106 - Known HCV+ cirrhosis that was being followed by [facility] - however, reportedly has not completed or started treatment - Recently discharged for RUQ pain, possibly choledocholithiasis - though HIDA was negative. Left AMA. - Mild degree of hypervolemia, ascites, and likely-multifactorial significant encephalopathy on exam - Child Dick Class B / MELD 28 -- though likely skewed by active RODRIGO - Check nCT-A/P given AMS, UTI, previous choledocholithiasis, and new ALI - Lactulose ongoing, as outlined below - Consider initiating spironolactone when appropriate/can take PO with careful observation of renal function - Lasix ongoing - see below - Outpatient care will need coordinated prior to discharge (5) Hyperammonemia: Plan: Hyperammonemia - On arrival, found to be with level of 155 in setting of new AMS (at d/c in February, was in 60s) - Very likely contributory to current AMS, though exact amount is unclear - Schedule lactulose 200gm q8h NE given inability to do PO at this time - Otherwise as above (6) Electrolyte abnormality: Plan: Electrolyte Derangements (Mg, K) - Presenting with K 2.9 / Mg 1.5 on arrival. Repleted in the ED. - Give another 1g of Mg - Recheck in AM, replete as needed - Noted patient is on Lasix 20mg b.i.d. PRN - unknown if this has been taken recently - Monitor with ongoing Lasix (7) Hyponatremia: Plan: Hyponatremia - Primarily suspect secondary to hypervolemia in setting of cirrhosis and clinical appearance - Check BNP, Jose, UCr, Uosm, Sosm for confirmation and further clarification in setting of RODRIGO - Initiate Lasix 40mg IV daily -- consider backing off as needed - Monitor electrolytes, replete as needed - Recheck BMP in AM (8) RODRIGO (acute kidney injury): Plan: Acute Kidney Injury - On arrival BUN 27 / Cr 1.89 (eGFR 38, CrCl 54) from BUN 12 / Cr 0.65 on 02/21 - Checking FENa, as above, for further clarification - With known cirrhosis, primary concern is developing hepatorenal syndrome - Consult nephrology: appreciate insight, aid with fluid balance in setting of cirrhosis and AMS, +?HRS and need for splanchnic vasoconstrictors when able - Lasix, as above - Hold Losartan - Recheck labs in AM (9) Opioid use disorder: Plan: Opioid Use Disorder - Responded to Narcan in the field, suggesting overdose-component to his AMS - On Suboxone 8mg t.i.d. as an outpatient -- hold for now - Consider Psych consult when appropriate (10) Alcohol use: Plan: Alcohol Use Disorder - AWSS ordered - Drinking history unable to be obtained on arrival. Per chart review _ (11) Prolonged QT interval: Plan: Prolonged QTc - At 489ms on arrival. - At recommendation of poison control, will obtain another one now. - Monitor on telemetry, avoid QTc-prolonging medications (12) COPD (chronic obstructive pulmonary disease): Plan: COPD - No maintenance inhalers or PFTS available on chart - Lung exam stable at this time - monitor - Albuterol PRN (13) HTN (hypertension): Plan: HTN - Hold Losartan (14) Sleep apnea: Plan: ELINA, severe - CPAP qHS (15) Type 2 diabetes mellitus: Plan: T2DM - Last A1c at 9.8% in 02/2022 - Weight-based dosing for SSI and basal entered. Goal range 140-180 right now with level of illness/incapacity, shift down when appropriate. - Glycemic consult appreciated during initial part of hospitalization (16) Thrombocytopenia: Plan: Thrombocytopenia - 32 on arrival - persistently dropping since 2020 - No signs of active bleeding. Monitor and trend while here - Cirrhosis management as above. (17) GERD (gastroesophageal reflux disease): Plan: GERD - Protonix 40mg IV daily while NPO Plan Code: Full - will need clarified once mentation has improved, did not have direct conversation PPX: SCDs for now Diet: NPO Dispo: PCU -- Patient has history of AMA in the past. Patient is highly complex with multiple complex medical problems necessitating close PCP and specialist follow-up. History of Present Illness Primary Care Provider: Bobby Leslie MD This is a 61-year-old male with a history of cirrhosis, chronic hepatitis C, alcohol abuse, narcotic abuse on Suboxone, AAA, GERD, type 2 diabetes, COPD, ELINA, hypertension for syncope and altered mental status. History is provided mostly by [id number] and chart review given patient's significant AMS. Patient was reportedly found down in the hallway earlier this evening. He is currently on Suboxone t.i.d. from [facility], but is also on gabapentin. There was concern from his sister that he may have OD'd on both. EMS was called and he was given Narcan and reportedly woke up thereafter and was agitated. He was brought to [facility] for further care and w/u. Of note, patient was recently admitted on 02/21/2022 for worsening right upper quadrant pain. CT scan at that time demonstrated possible choledocholithiasis, underwent HIDA scan on day of discharge, which was negative. --- MEDICATIONS: Medications reviewed and include alfuzosin, aspirin, Suboxone 8 mg 3 times daily, Lasix twice daily as needed, gabapentin 800 mg 4 times daily, insulin 80 units twice daily, Humalog 30 units 3 times daily, ipratropiumalbuterol, lidocaine, losartan 100 mg daily, omeprazole, ondansetron. --- DATA REVIEW: Last TTE on 02/20 demonstrated normal left ventricular function with mild concentric hypertrophy, grade 1 diastolic dysfunction, mildly dilated left atrium. Urine culture 02/20/2022 demonstrating multidrug-resistant E. coli resistant to ampicillin, ciprofloxacin, levofloxacin, and Bactrim Urine culture 03/12/2021 similarly demonstrating multidrug-resistant E. coli to ampicillin, ciprofloxacin, levofloxacin and Bactrim. --- ED COURSE: In the ED, patient was found to be mildly hypertensive at 165/84 and tachycardic 102. Oxygen saturation and respiratory rate at 95% at room air and 15, respectively. Weight 117.2 kg from 109.5 kg on 02/21. He was afebrile. Admission labs demonstrate chronic normocytic anemia with hemoglobin 11.7, chronic thrombocytopenia at 32 (on 02/21 at 43). Serum sodium 129, potassium 2.9, chloride 96, BUN 27, creatinine 1.89 (at last discharge, 0.65), glucose 162, magnesium 1.5, total bilirubin 2.8, AST 86, ALT 42, ALP 120, ammonia 155, albumin 2.9, lipase 106.Urine was dark in appearance with turbid character. This demonstrated 2+ protein, 2+ blood, negative nitrates, negative bilirubin, 3+ leuk esterase, over 30 WBCs, and 4+ urine bacteria. Urine toxicology demonstrated positive urine benzodiazepines. Ethyl alcohol under 10. COVID- negative.Head CT negative.Chest x-ray demonstrating cardiomegaly and emphysema with pulmonary vascular congestion. He became combative during his ER course and was subsequently given Zyprexa. Allergies Allergy/AdvReac Type Severity Reaction Status Date / Time No Known Allergies Allergy Verified 04/15/22 19:42 Home Medications Medication Instructions Recorded Confirmed Type gabapentin 800 mg tablet 800 mg PO QID 08/20/20 04/15/22 History insulin glargine 100 unit/mL (3 80 unit subcut BID 08/20/20 04/15/22 History mL) subcutaneous pen (Lantus Solostar U-100 Insulin) insulin lispro 100 unit/mL 30 unit subcut TIDM 08/20/20 04/15/22 History subcutaneous solution (Humalog U-100 Insulin) aspirin 81 mg tablet,delayed 81 mg PO DAILY 11/25/20 04/15/22 History release (Chavo Low Dose Aspirin) furosemide 20 mg tablet 20 mg PO BID PRN as directed 06/01/21 04/15/22 History omeprazole 20 mg capsule,delayed 20 mg PO BID 06/01/21 04/15/22 History release ipratropium 0.5 mg-albuterol 3 mg 3 ml inhalation QID PRN Shortness 12/27/21 04/15/22 History (2.5 mg base)/3 mL nebulization Of Breath Or Wheezing soln lidocaine 5 % topical ointment 1 applic topical QID PRN Pain 12/27/21 04/15/22 History losartan 100 mg tablet 100 mg PO DAILY 12/27/21 04/15/22 History ondansetron HCl 4 mg tablet 4 mg PO BID PRN Nausea And Vomiting 12/27/21 04/15/22 History alfuzosin 10 mg tablet,extended 10 mg PO DAILY #30 tabs 03/30/22 04/15/22 Rx release 24 hr buprenorphine HCl 8 mg sublingual 8 mg sublingual TID 03/30/22 04/15/22 History tablet Past Med/Surg History Medical History AAA (abdominal aortic aneurysm) per pt, last evaluated 6 mo ago [facility] or [facility]? "around 5 cm" -->says was referred to vascular surgery but no appt as of yet Alcoholic cirrhosis Anxiety Bipolar disorder COPD (chronic obstructive pulmonary disease) no inh at present Depression DM type 2 (diabetes mellitus, type 2) IDDM Dysphagia Encephalopathy Fibromyalgia Gastroparesis GERD (gastroesophageal reflux disease) Hepatitis C dx 1 mo ago --> per pt, referred to [facility] in [place] for treatment but no appt as of yet History of DVT (deep vein thrombosis) "few years ago" LLE -- unk etiology -- per pt, no treatment at time of dx History of heroin abuse quit 2017 History of kidney stones History of migraine HTN (hypertension) Hyperlipidemia Hypertension Nocturnal hypoxia per pt, prescribed home O2 @ 2 LPM qHS and PRN daily in past but unable to obtain as of late r/t financial struggles. admits to using sister's oxygen at night when able. 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 Sleep apnea non compliant with CPAP Surgical History History of colonoscopy History of ear surgery as a child History of esophagogastroduodenoscopy (EGD) History of tonsillectomy History of tooth extraction S/P excisional debridement LLE Family History Other No family history of adverse response to anesthesia No significant medical problems Social History Smoking Status: Current every day smoker Tobacco Type: Cigarettes Cigarettes Per Day: 6; Second Hand Exposure: Yes; Hx Alcohol Use: Yes Hx Substance Use: Yes Last Used Substance Other:: Currently on subutex. Patient states clean for 6 years. 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 Withdrawals from pain. HEENT: NCAT. - Eyes - Sclera are white, anicteric, and without injection. - Mouth - MMM - Neck - supple; cannot appreciate JVD with habitus. Cardiac: Limited exam due to agitation. Of what could be heard - Normal rate and regular rhythm; S1 and S2 present with no murmurs, rubs, or gallops. Pulmonary: Good respiratory effort with symmetric expansion of the chest. No use of accessory muscles. Lungs were clear to auscultation bilaterally with no crackles or wheezes. Abdominal: Normoactive bowel sounds. Abdomen was soft and mildly distended with positive fluid wave. Extremities: Upper and lower extremities are warm and well perfused. 2+ Neuro: Agitated as above. CN2-12 grossly intact. UE, LE strength appears in-tact throughout agitated period. Results & Data Results & Data ([facility]) Vital Signs (Past 12 Hours) Vital Signs Temp Pulse Pulse Resp BP BP Pulse Ox 04/15/22 18:44 102 H 14 165/84 H 97 04/15/22 18:44 165/84 H 04/15/22 18:51 103 H 22 165/84 H 95 04/15/22 18:25 94 04/15/22 18:25 36.9 C 82 15 110/61 95 04/15/22 18:15 94 O2 Del Method 04/15/22 18:44 04/15/22 18:44 04/15/22 18:51 Room Air 04/15/22 18:25 04/15/22 18:25 Room Air 04/15/22 18:15 Room Air Supervising Physician Co-Signing Physician Notes Attending addendum: I have physically seen this patient, have supervised the medical residents activities, and agree with the H&P unless as otherwise noted. Assessment and Plan: Metabolic encephalopathy- Multifactorial: Probable opiate overdose, possible gabapentin overdose, hyperammonemia, UTI, electrolyte disturbances. CT head negative Input from poison control suggested supportive care Follow blood cultures, urine cultures, and serial lactates Patient becoming more agitated, will use soft restraints, and Zyprexa 5 mg IM as needed Opiate overdose- Patient reportedly did respond to Narcan administration Hold any dosing of Suboxone or other narcotics Admit to monitored bed Complicated urinary tract infection- Follow urine culture sensitivity Empiric cefepime 2 g IV every 12 hours for now Chronic hepatitis C with cirrhosis/hyperammonemia- Was given lactulose enema in the ED and placed on scheduled lactulose enemas. Patient unable to oral at this time Serial LFTs and ammonia levels Remaining orders and notations as noted Resident Activity Tracking Resident Involvement: Resident Care Provided Care Provided: Adult Hospital Medicine
[2022-04-15] MEDS ORDERED: OLANZapine 10 MG/2.1 ML SDV IM ONE ×2 (20:52→23:03)
[2022-04-15] MEDS ORDERED: OLANZapine 10 MG/2.1 ML SDV IM STA (20:52)
[2022-04-15 21:16] LABS: INR 1.9 (0.9-1.1); Partial Thromboplastin Ratio 1.3; Partial Thromboplastin Time 34.5 Seconds (21.0-31.0); Prothrombin Time 19.5 Seconds (9.0-12.0)
[2022-04-15] MEDS: POTASSIUM CHLORIDE / WTR 10 MEQ/100 ML PLCT IV SCH (22:10)
[2022-04-15] MEDS ORDERED: FUROSEMIDE 40 MG/4 ML VIAL IV ONE (23:22)
[2022-04-15] MEDS ORDERED: MAGNESIUM SULFATE / D5W 1 GM/100 ML BAG IV ONE (23:34)
[2022-04-15] MEDS ORDERED: Ativan PO Alcohol Withdrawal--Active Protocol PO PRN (23:34)
[2022-04-15] MEDS ORDERED: ALBUT/IPRATROP 3MG/0.5MG NEB 3 ML VIAL INH PRN (23:34)
[2022-04-15] MEDS ORDERED: GLUCAGON FOR INJ 1 MG VIAL SQ PRN (23:34)
[2022-04-15] MEDS ORDERED: PHARMACY GLYCEMIC MGMT CONSULT PRN (23:34)
[2022-04-15] MEDS ORDERED: GLUCOSE 10 TAB/TUBE PO PRN (23:34)
[2022-04-15] MEDS ORDERED: LORazepam 1 MG TAB PO PRN ×3 (23:34)
[2022-04-15] MEDS ORDERED: GLUCOSE 40% GEL 15 GM TUBE PO PRN (23:34)
[2022-04-15] MEDS ORDERED: DEXTROSE 50% 50 ML SYRINGE IV PRN (23:34)
[2022-04-15] MEDS ORDERED: CARBOHYDRATES FOR HYPOGLYCEMIA PO PRN (23:34)
[2022-04-15] MEDS ORDERED: THIAMINE HCL 300 MG in SYRINGE 9 ML IV SCH (23:34)
--- NOTE | 2022-04-15 23:51 | CT Scan Report ---
CT SCAN OF THE ABDOMEN AND PELVIS WITHOUT IV CONTRAST CLINICAL HISTORY: Recurrent urinary tract infection. COMPARISON STUDY: Abdominal CT dated 02/20/2022. Nuclear hepatobiliary scan dated 02/20/2022. TECHNIQUE: CT scan of the abdomen and pelvis is performed from the lung bases to the proximal femora. Images are reviewed in the axial, sagittal, and coronal planes. IV contrast was not administered for this examination. Note that the examination is suboptimal without IV contrast. There is also motion artifact, as well as streak artifact from the left arm which could not be elevated above the abdomen. . A dose lowering technique was utilized adhering to the principles of ALARA. CT DOSE: 1789.47 mGy.cm FINDINGS: Lung bases: The heart is mildly enlarged and without pericardial effusion. The coronary arteries are densely calcified. The distal esophagus appears circumferentially thick walled, and there is a small hiatal hernia. Emphysematous change is seen at the lung bases. There are trace pleural effusions with dependent consolidation. Esophageal varices are noted. Liver: The unenhanced liver is enlarged, measuring 21.2 cm in length. The liver is cirrhotic in morph ology, with nodularity of the hepatic surface contour and hypertrophy of the left lobe and caudate. D iffusely diminished attenuation indicates steatosis. There is no intrahepatic biliary ductal dilatati on. Gallbladder: There are numerous calcified gallstones. The gallbladder is distended. Mild gallbladder wall thickening is nonspecific and there is trace pericholecystic fluid. Spleen: The spleen is markedly enlarged measuring 22.3 cm in length. There are large perisplenic kedar aterals and gastric varices. Pancreas: There are scattered parenchymal calcifications. The pancreas is atrophic and otherwise eren sly unremarkable. Adrenal glands: Unremarkable. Kidneys: The unenhanced kidneys are normal in size and without hydronephrosis. There are least 2 nono bstructing left renal calculi which measure up to 6 mm. No right renal calculi are identified and the re is no ureteral stone. There is no evidence of contour deforming mass lesion Abdominal vasculature: There is advanced atherosclerotic calcification and mild ectasia of the abdomi nal aorta. Bowel: The colonic wall appears mildly diffusely thickened. No bowel obstruction is identified. The a ppendix is well-visualized and normal. Peritoneum: There is a small volume of abdominopelvic ascites. This has increased from 02/20/2022. No intraperitoneal free air is identified. Mesenteric edema is noted. Lymphadenopathy: There are mildly enlarged upper abdominal lymph nodes, likely related to chronic philippe er disease. Pelvic viscera: The bladder is markedly distended but otherwise normal as imaged. The prostate gland is diminutive and heterogeneous. Skeletal structures: The skeletal structures are osteopenic. There is mild to moderate lumbosacral sp ondylosis. No lytic or blastic lesions are seen. There are healed right-sided rib fractures. Soft tissues: There is mild body wall edema. IMPRESSION: 1. Suboptimal examination without IV contrast. There is also significant streak and motion artifact. 2. The bladder is markedly distended but otherwise normal in appearance. 3. The liver is enlarged, heterogeneous, steatotic, and cirrhotic in morphology. 4. Marked splenomegaly, a small volume of abdominopelvic ascites, esophageal varices, and upper abdom inal collaterals indicate portal hypertension. The volume of ascites has increased from 02/20/2022. 5. Again seen is significant gallbladder distention with numerous calcified gallstones. Mild gallblad kristen wall thickening is nonspecific and may be related to adjacent hepatocellular disease. There is al so nonspecific pericholecystic fluid/ascites. These findings are similar to the 02/20/2022 examination and a nuclear hepatobiliary scan at that time was negative for cholecystitis. Clinical and laborator y correlation will be required. 6. The colon appears mildly and diffusely thick-walled. This could represent portal colopathy and/or a nonspecific colitis. Correlate clinically. 7. The esophagus appears thick-walled. Correlate clinically for evidence of esophagitis. This can be further assessed with endoscopy if clinically warranted. 8. Cardiomegaly and emphysema. 9. Left-sided nephrolithiasis. 10. Trace pleural effusions and dependent consolidation. This likely represents atelectasis and clin ical correlation will be required. Effusions are new from 02/20/2022. 11. Additional findings as above. ACT 112: Negative or not required by law. Electronically signed by: Adriano Sparks M.D. 04/15/2022 11:49 PM
[2022-04-16] MEDS: CEFEPIME 1,000 MG in SYRINGE 0 ML IV SCH ×2 (00:27→11:17)
[2022-04-16] MEDS: POTASSIUM CHLORIDE / WTR 10 MEQ/100 ML PLCT IV SCH ×5 (00:27→11:21)
[2022-04-16] MEDS: FOLIC ACID 1 MG in SYRINGE 9.8 ML IV SCH ×2 (00:30→08:09)
[2022-04-16] MEDS: THIAMINE HCL 300 MG in SODIUM CHLORIDE 0.9% 50 ML IV SCH ×2 (01:23→08:18)
[2022-04-16 01:24] LABS: Creatinine Urine Random 38.7 mg/dl
[2022-04-16] MEDS: LANTUS PER UNIT CHARGE SQ SCH ×2 (01:29→08:15)
[2022-04-16] MEDS: INSULIN ASPART PER UNIT SC SCH ×4 (01:29→18:15)
[2022-04-16] MEDS ORDERED: Flu Vaccine (Fluarix) 0.5mL SYR (Standard Dose) IM ONE (04:30)
[2022-04-16] MEDS ORDERED: PNEUMOCOCCAL Polysaccharide Vaccine 25mcg/0.5mL vial/Syr IM ONE (04:30)
[2022-04-16] MEDS ORDERED: LORazepam 0.5 MG in SYRINGE 0 ML IV STA (06:08)
[2022-04-16 06:44] LABS: Albumin Globulin Ratio 0.7 (0.9-2); Albumin Level 2.5 gm/dl (3.4-5.0); BUN Creatinine Ratio 15.6 (10-20); Bilirubin,Total 2.9 mg/dl (0.2-1.0); Calcium 7.8 mg/dl (8.5-10.1); Creatinine Clr Calc Pharmacy 59.3 ml/min; Est GFR (Non-African American) 42.3 ml/min; Globulin 3.6 gm/dl (2.5-4.0); Magnesium 1.7 mg/dl (1.7-2.4); Potassium 2.8 mmol/L (3.5-5.1); Total Protein 6.1 gm/dl (6.0-8.3)
[2022-04-16 07:02] LABS: Hematocrit (blood only) 30.7 % (40.1-51.0); Hemoglobin 11.1 g/dl (14.0-18.0); Mean Corpuscular Hemoglobin 30.7 pg (25.0-34.0); Mean Corpuscular Hgb Conc 36.2 g/dL (32.0-36.0); Platelet Count 30 K/uL (130-400); RDW Coefficient of Variation 15.2 % (11.5-14.5); RDW Standard Deviation 46.7 fL (36.4-46.3); Red Blood Count 3.61 M/uL (4.63-6.08); White Blood Count 4.89 K/ul (4.8-10.8)
--- NOTE | 2022-04-16 07:06 | Electrocardiogram Report ---
Test Reason : Blood Pressure : / mmHG Vent. Rate : 089 BPM Atrial Rate : 089 BPM P-R Int : 172 ms QRS Dur : 094 ms QT Int : 402 ms P-R-T Axes : 057 018 027 degrees QTc Int : 489 ms Normal sinus rhythm When compared with ECG of 01-JUN-2021 23:10, No significant change was found Confirmed by Pedro Pablo Loo ([id number]) on 04/16/2022 7:06:04 AM Referred By: REFERRED SELF Confirmed By:Scottie Loo
[2022-04-16 07:07] LABS: Basophils # (auto) 0.02 K/uL (0-0.2); Basophils % (auto) 0.4 %; Eosinophils # (auto) 0.14 K/uL (0-0.50); Eosinophils % (auto) 2.9 %; Immature Granulocytes # (auto) 0.02 K/uL (0.00-0.02); Immature Granulocytes % (auto) 0.4 %; Lymphocytes % (auto) 22.5 %; Monocytes # (auto) 0.56 K/uL (0.24-0.82); Monocytes % (auto) 11.5 %; Neutrophils # (auto) 3.05 K/uL (1.4-6.5); Neutrophils % (auto) 62.3 %; Platelet Estimate Signific. Decreased (Normal)
--- NOTE | 2022-04-16 07:16 | Electrocardiogram Report ---
Test Reason : Blood Pressure : / mmHG Vent. Rate : 090 BPM Atrial Rate : 090 BPM P-R Int : 178 ms QRS Dur : 096 ms QT Int : 402 ms P-R-T Axes : 063 061 037 degrees QTc Int : 491 ms Normal sinus rhythm Low voltage QRS Prolonged QT Abnormal ECG When compared with ECG of 15-APR-2022 18:13, (unconfirmed) No significant change was found Confirmed by Pedro Pablo Loo ([id number]) on 04/16/2022 7:15:39 AM Referred By: REFERRED SELF Confirmed By:Scottie Loo
[2022-04-16] MEDS ORDERED: INSULIN ASPART PER UNIT SC SCH (07:30)
[2022-04-16] MEDS: LACTULOSE 200GM/700ML WTR ENEMA PR SCH ×4 (07:46→20:00)
[2022-04-16] MEDS ORDERED: POTASSIUM CHLORIDE CRTAB 20 MEQ TABCR PO STA (08:04)
[2022-04-16] MEDS: PANTOprazole 40 MG in SYRINGE 0 ML IV SCH (08:09)
[2022-04-16] MEDS ORDERED: FUROSEMIDE 40 MG/4 ML VIAL IV SCH (09:00)
--- NOTE | 2022-04-16 11:24 | Hospitalist Progress Note ---
Date of Service April 16, 2022 Assessment & Plan (1) Metabolic encephalopathy: Plan: This is a 61-year-old male with a history of cirrhosis, chronic hepatitis C, alcohol abuse, IVDU per chart review, OUD on Suboxone, AAA, GERD, type 2 diabetes, COPD, ELINA, hypertension for syncope and altered mental status which was responsive to Narcan administration in the field. On arrival here, he was found to be agitated with multiple electrolyte abnormalities, an RODRIGO, elevated LFTs, and hyperammonemia at 155. Metabolic/hepatic encephalopathy - Likely multifactorial: Suspected opiate overdose, possibly gabapentin overdose (though unclear history to this regard - mentioned by Sister to EMS), hyperammonemia, UTI, electrolyte abnormalities, dehydration - On arrival, found to be agitated but alert - did require Zyprexa x 1 in the ED, responded well - CT-H negative for acute processes / ABG with respiratory alkalosis on arrival - 7.49 / pCO2 32 / pO2 76 / pHCO3 24 - Spoke with Poison Control re: possible gabapentin overdose: supportive care, OK for BZDs if combative, avoid QTc prolonging agents - Procalcitonin minimally elevated, blood cultures pending, urine culture growing gram-negative bacilli - Work-up and treatment for individual problems as below (2) Overdose: Plan: - Based on history and responding to Narcan, c/f Suboxone overdose and ?possibly gabapentin - Spoke with poison control, as above - We will consider psychiatry consultation once he is more awake (3) Urinary tract infection: Plan: - Patient was here approximately 1 mo ago for RUQ pain but left AMA. Had e/o cystitis and bacteruria at that time too with MDR-E. coli based on labs at that time - Historical info: - Urine culture 02/20/2022 demonstrating multidrug-resistant E. coli resistant to ampicillin, ciprofloxacin, levofloxacin, and Bactrim - Seen on 03/30/22 w/ outpatient urology for UTI-like symptoms - prescribed Augmentin, Alfuzosin - UA again showing signs of cystitis with 4+ bacteruria and >30 WBCs (10-20 epis) - Ordered: UA, procal, lactate, BCX -- will also put in for nCT-A/P given his +LUTS, clinical appearance. Hold contrast given RODRIGO - Initiate cefepime for now, likely can narrow to CFTX once more history / clinical status is clarified PSA and repeat procalcitonin with a.m. labs (4) Chronic hepatitis C with cirrhosis: Plan: Untreated HCV, present EtOH abuse, h/o IVDU - On arrival: Na 129 / Cr 1.89 / TBili 2.8 with DBili 1.1, AST 86, ALT 42, ALP 120, ammonia 155 ; APAP, salicylate, and EtOH negative ; lipase 106 - Known HCV+ cirrhosis that was being followed by [facility] [place] [facility] - however, reportedly has not completed or started treatment - Recently discharged for RUQ pain, possibly choledocholithiasis - though HIDA was negative. Left AMA. - Child Dick Class B / MELD 28 -- though likely skewed by active RODRIGO - Lactulose ongoing, as outlined below - Outpatient care will need coordinated prior to discharge (5) Hyperammonemia: Plan: - On arrival, found to be with level of 155 in setting of new AMS (at d/c in February, was in 60s) - Very likely contributory to current AMS, though exact amount is unclear - Schedule lactulose 200gm q8h SD given inability to do PO at this time - DigniShield in place (6) Electrolyte abnormality: Plan: - K 2.8 this morning. Replaced with KCl 10 meq x4 + KCl 40 meq in IV fluids - Mg 1.7 after supplementation given in ER. We will repeat with a.m. labs. (7) Hyponatremia: Plan: Hypovolemic hyponatremia Continue to monitor with normal saline in intravenous fluids (8) RODRIGO (acute kidney injury): Plan: - On arrival BUN 27 / Cr 1.89 (eGFR 38, CrCl 54) from BUN 12 / Cr 0.65 on 02/21 - Hold Losartan Patient is extremely dry on exam with very dry mucous membranes, wrinkling of the skin and decreased skin turgor. FEN of Na 0.9%. Discontinue Lasix. Certainly at risk of third spacing however oral intake at this time we will start on slow intravenous fluids - NSS + 40 meq @ 80ml/hr and closely monitor renal function. (9) Opioid use disorder: Plan: - Responded to Narcan in the field, suggesting overdose-component to his AMS - On Suboxone 8mg t.i.d. as an outpatient -- hold for now - Consider Psych consult when appropriate (10) Alcohol use: Plan: - AWSS ordered - Drinking history unable to be obtained on arrival. Agree with intravenous thiamine but will increase dose to 200 mg IV 3 times daily (11) COPD (chronic obstructive pulmonary disease): Plan: - No maintenance inhalers or PFTS available on chart - Lung exam without wheezing at this time - Albuterol PRN (12) HTN (hypertension): Plan: Agree with holding Losartan (13) Sleep apnea: Plan: - CPAP qHS if able to tolerate (14) Type 2 diabetes mellitus: Plan: - Last A1c at 9.8% in 02/2022 - Glycemic consult appreciated (15) Thrombocytopenia: Plan: - 32 on arrival - persistently dropping since 2020 - No signs of active bleeding. Monitor and trend while here - Cirrhosis management as above. (16) GERD (gastroesophageal reflux disease): Plan: - Protonix 40mg IV daily while NPO (17) Hepatic encephalopathy: Plan Code: Full - will need clarified once mentation has improved, did not have direct conversation PPX: SCDs, chemical prophylaxis deferred due to platelets less than 50 Diet: NPO Dispo: PCU -- Patient has history of AMA in the past. Patient is highly complex with multiple complex medical problems necessitating close PCP and specialist follow-up. Currently lacks capacity to sign out AGAINST MEDICAL ADVICE. Admission and Anticipated Discharge Date Admission Date: April 15, 2022 Subjective Patient just says "yes" when I try and talk with him. Falls back to sleep immediately. DigniShield in place - only just go his lactulose enema this morning. Not yet wake enough for oral medication of food. Updated his sister over the phone. Review of Systems Review of Systems: Unobtainable due to cognitive status Physical Exam Constitutional: well developed; + not well nourished and no acute distress Eyes: PERRL, conjunctivae normal, anicteric sclerae ENMT: Mouth: + dry oral mucous membranes Respiratory: normal respiratory effort; no respiratory distress Auscultation: + diminished lung sounds (Bibasal); no crackles and no wheezes Cardiovascular: Rate/Rhythm: regular rate and regular rhythm Heart Sounds: + murmur (apical) Gastrointestinal (Abdomen): Inspection/Auscultation: abdomen not distended Percussion/Palpation: abdomen soft Skin: no rashes, warm and dry Neurologic: moves all extremities (Unable to follow commands), awake (To voice) and + confused Psychiatric: A+Ox3, euthymic affect Genitourinary: no CVA tenderness Results & Data Results & Data ([facility]) Vital Signs (Past 12 Hours) Vital Signs Temp Pulse Pulse Resp BP Pulse Ox O2 Del Method 04/16/22 09:49 83 04/16/22 08:00 Nasal Cannula 04/16/22 06:06 37.1 C 99 H 18 122/71 95 Nasal Cannula 04/15/22 23:48 93 H 04/15/22 23:34 Nasal Cannula 04/15/22 23:34 36.5 C 97 H 18 118/70 98 Nasal Cannula O2 Flow Rate 04/16/22 09:49 04/16/22 08:00 2 04/16/22 06:06 04/15/22 23:48 04/15/22 23:34 2 04/15/22 23:34 2 PG Care Time/CCT Total # of Minutes Spent Total Time Spent with Patient: Total time spent is greater than 50% in coordination of care (as documented) at patient's floor/unit and/or counseling patient: Coding Level of Care Code 00075 Subseq Hosp Care Lvl 3 Diagnoses Metabolic encephalopathy G93.41 Overdose T50.901A Urinary tract infection N39.0 Hematuria presence: without hematuria Urinary tract infection type: site unspecified Chronic hepatitis C with cirrhosis B18.2; K74.60 Hyperammonemia E72.20 Electrolyte abnormality E87.8 Hyponatremia E87.1 RODRIGO (acute kidney injury) N17.9 Opioid use disorder F11.90 Alcohol use Z78.9 COPD (chronic obstructive pulmonary disease) J44.9 HTN (hypertension) I10 Sleep apnea G47.30 Type 2 diabetes mellitus E11.9 Thrombocytopenia D69.6 GERD (gastroesophageal reflux disease) K21.9 Hepatic encephalopathy K76.82 (1) Urinary tract infection Hematuria presence: without hematuria Urinary tract infection type: site unspecified Qualified Code(s): N39.0 - Urinary tract infection, site not specified
[2022-04-16] MEDS ORDERED: POTASSIUM CHLORIDE 40 MEQ in SODIUM CHLORIDE 0.9% 1000ML 1,000 ML IV SCH (11:45)
--- NOTE | 2022-04-16 14:23 | Pharmacy Report ---
Pharmacy Glycemic Short Note 2 - Date of Service April 16, 2022 - Glycemic Short BSG Results (Last 24 hours): 04/15/22 04/15/22 04/16/22 19:02 23:52 05:33 Glucose 162 H POC Glucose 154 H 165 H 04/16/22 04/16/22 06:06 11:04 Glucose 129 H POC Glucose 113 H OUTPATIENT ANTIDIABETIC REGIMEN: * Lantus 80 units bid, humalog 30 units tidm ASSESSMENT: * 61 year old admitted with encephalopathy, potential drug overdose, uti. Pharmacy consulted to assist with glycemic management. Patient currently on very large amounts of insulin at home. A1c elevated as of 03/11 * Prior admission, patient's blood sugars had been low on admission - basal insulin held as patient also with N/V * Plan to start conservatively with basal insulin as patient NPO - He was started at 10 units Lantus bid. I may have scale for HS for 0-10 units based upon BSG PLAN FOR INPATIENT GLYCEMIC CONTROL: * Hold outpatient oral diabetes medications * Basal insulin * Lantus 0-10 units bid * Bolus insulin * NovoLog per scale ACHS or Q6hrs while NPO * Goal Range: Low 110 mg/dL - High 140 mg/dL * Correction Factor: 15 mg/dL/unit * Nutritional / Prandial insulin per carb ratio of 1 unit per 5 grams CHO consumed
[2022-04-16 16:51] LABS: BUN Creatinine Ratio 17.3 (10-20); Creatinine Clr Calc Pharmacy 61.1 ml/min; Est GFR (African American) 50.8 ml/min; Est GFR (Non-African American) 43.8 ml/min; Potassium 3.5 mmol/L (3.5-5.1)
[2022-04-16] MEDS: THIAMINE HCL 200 MG in SODIUM CHLORIDE 0.9% 50 ML IV SCH (21:00)
[2022-04-16] MEDS ORDERED: POTASSIUM CHLORIDE CRTAB 20 MEQ TABCR PO SCH (21:00)
[2022-04-16] MEDS ORDERED: LANTUS PER UNIT CHARGE SQ SCH (21:00)
--- NOTE | 2022-04-16 21:10 | Billing Data ---
Date of Service April 16, 2022 Coding Level of Care Code 71992 Initial Inpt Care Lvl 3
[2022-04-16] MEDS ORDERED: LORazepam 0.25 MG in SYRINGE 0 ML IV STA (22:07)
[2022-04-17] MEDS: CEFEPIME 1,000 MG in SYRINGE 0 ML IV SCH (00:05)
[2022-04-17] MEDS: INSULIN ASPART PER UNIT SC SCH ×5 (00:05→20:47)
[2022-04-17] MEDS: LACTULOSE 200GM/700ML WTR ENEMA PR SCH ×2 (03:39→13:08)
[2022-04-17] MEDS: PANTOprazole 40 MG in SYRINGE 0 ML IV SCH (07:56)
[2022-04-17] MEDS: FOLIC ACID 1 MG in SYRINGE 9.8 ML IV SCH (07:56)
[2022-04-17] MEDS: THIAMINE HCL 200 MG in SODIUM CHLORIDE 0.9% 50 ML IV SCH ×3 (08:00→20:12)
[2022-04-17] MEDS ORDERED: LANTUS PER UNIT CHARGE SQ SCH (09:00)
[2022-04-17 09:09] LABS: Albumin Globulin Ratio 0.7 (0.9-2); Albumin Level 2.7 gm/dl (3.4-5.0); BUN Creatinine Ratio 19.2 (10-20); Bilirubin,Total 2.3 mg/dl (0.2-1.0); Calcium 7.9 mg/dl (8.5-10.1); Creatinine Clr Calc Pharmacy 61.1 ml/min; Est GFR (African American) 51.1 ml/min; Est GFR (Non-African American) 44.1 ml/min; Globulin 3.9 gm/dl (2.5-4.0); Magnesium 1.5 mg/dl (1.7-2.4); Phosphorus 3.1 mg/dl (2.5-4.9); Total Protein 6.6 gm/dl (6.0-8.3)
[2022-04-17 09:41] LABS: Basophils # (auto) 0.02 K/uL (0-0.2); Basophils % (auto) 0.3 %; Eosinophils # (auto) 0.15 K/uL (0-0.50); Eosinophils % (auto) 2.6 %; Hematocrit (blood only) 29.9 % (40.1-51.0); Hemoglobin 10.5 g/dl (14.0-18.0); Immature Granulocytes # (auto) 0.03 K/uL (0.00-0.02); Immature Granulocytes % (auto) 0.5 %; Lymphocytes # (auto) 1.49 K/uL (1.2-3.4); Lymphocytes % (auto) 25.6 %; Mean Corpuscular Hemoglobin 30.7 pg (25.0-34.0); Mean Corpuscular Hgb Conc 35.1 g/dL (32.0-36.0); Mean Corpuscular Volume 87.4 fL (80.0-100.0); Mean Platelet Volume 11.7 fL (9.4-12.4); Monocytes # (auto) 0.58 K/uL (0.24-0.82); Neutrophils # (auto) 3.54 K/uL (1.4-6.5); Platelet Count 39 K/uL (130-400); Polychromasia 1+; RDW Coefficient of Variation 16.6 % (11.5-14.5); RDW Standard Deviation 51.1 fL (36.4-46.3); Red Blood Count 3.42 M/uL (4.63-6.08); White Blood Count 5.81 K/ul (4.8-10.8)
[2022-04-17 09:48] LABS: INR 1.9 (0.9-1.1); Prothrombin Time 19.7 Seconds (9.0-12.0)
--- NOTE | 2022-04-17 09:50 | Pharmacy Report ---
Pharmacy Glycemic Short Note 2 - Date of Service April 17, 2022 - Glycemic Short BSG Results (Last 24 hours): 04/16/22 04/16/22 04/16/22 11:04 16:02 18:11 Glucose 152 H POC Glucose 113 H 143 H 04/16/22 04/17/22 04/17/22 23:11 07:12 08:34 Glucose 120 H POC Glucose 141 H 111 H OUTPATIENT ANTIDIABETIC REGIMEN: * Lantus 80 units bid, humalog 30 units tidm ASSESSMENT: 04/17 * Diet advanced to full liquid from NPO * AM fasting within range (111 mg/dL), maintain lantus dose * Novolog parameters adjusted given low amount of insulin needed yesterday while NPO, will continue to monitor. 04/16 * 61 year old admitted with encephalopathy, potential drug overdose, uti. Pharmacy consulted to assist with glycemic management. Patient currently on very large amounts of insulin at home. A1c elevated as of 03/11 * Prior admission, patient's blood sugars had been low on admission - basal insulin held as patient also with N/V * Plan to start conservatively with basal insulin as patient NPO - He was started at 10 units Lantus bid. I may have scale for HS for 0-10 units based upon BSG PLAN FOR INPATIENT GLYCEMIC CONTROL: * Hold outpatient oral diabetes medications * Basal insulin * Lantus 10 units QAM * Bolus insulin * NovoLog per scale ACHS or Q6hrs while NPO * Goal Range: Low 110 mg/dL - High 140 mg/dL * Correction Factor: 20 mg/dL/unit * Nutritional / Prandial insulin per carb ratio of 1 unit per 7 grams CHO consumed
[2022-04-17] MEDS: MAGNESIUM SULFATE / D5W 1 GM/100 ML BAG IV SCH ×3 (10:48→14:04)
[2022-04-17] MEDS: cefTRIAXone SODIUM 2,000 MG in DEXTROSE 5% 50 ML IV SCH (11:25)
--- NOTE | 2022-04-17 12:48 | Hospitalist Progress Note ---
Date of Service April 17, 2022 Assessment & Plan (1) Metabolic encephalopathy: Plan: This is a 61-year-old male with a history of cirrhosis, chronic hepatitis C, alcohol abuse, IVDU per chart review, OUD on Suboxone, AAA, GERD, type 2 diabetes, COPD, ELINA, hypertension for syncope and altered mental status which was responsive to Narcan administration in the field. On arrival here, he was found to be agitated with multiple electrolyte abnormalities, an RODRIGO, elevated LFTs, and hyperammonemia at 155. Metabolic/hepatic encephalopathy - Likely multifactorial: Suspected opiate overdose, possibly gabapentin overdose (though unclear history to this regard - mentioned by Sister to EMS), hyperammonemia, UTI, electrolyte abnormalities, dehydration - On arrival, found to be agitated but alert - did require Zyprexa x 1 in the ED, responded well - CT-H negative for acute processes / ABG with respiratory alkalosis on arrival - 7.49 / pCO2 32 / pO2 76 / pHCO3 24 - Spoke with Poison Control re: possible gabapentin overdose: supportive care, OK for BZDs if combative, avoid QTc prolonging agents - Procalcitonin minimally elevated, blood cultures negative at 24 hours, urine culture growing E. coli sensitive to ceftriaxone - Work-up and treatment for individual problems as below (2) Overdose: Plan: - Based on history and responding to Narcan, c/f Suboxone overdose and ?possibly gabapentin - Spoke with poison control, as above - We will consider psychiatry consultation once he is more awake (3) Hepatic encephalopathy: Plan: - On arrival, found to be with level of 155 in setting of new AMS (at d/c in February, was in 60s) - Very likely contributory to current AMS, though exact amount is unclear - Now tolerating oral intake will switch lactulose to 20 mg p.o. 3 times daily. Ammonia level down to 108. (4) RODRIGO (acute kidney injury): Plan: - On arrival BUN 27 / Cr 1.89 (eGFR 38, CrCl 54) from BUN 12 / Cr 0.65 on 02/21 - Hold Losartan Patient remains dry on exam. Negative balance due to Lasix being given yesterday morning. Hold further Lasix dosing. Certainly at risk of third spacing however remains dry and will give 1 additional liter of IV fluids- NSS + 40 meq @ 80ml/hr (5) Urinary tract infection: Plan: - Patient was here approximately 1 mo ago for RUQ pain but left AMA. Had e/o cystitis and bacteruria at that time too with MDR-E. coli based on labs at that time - Historical info: - Urine culture 02/20/2022 demonstrating multidrug-resistant E. coli resistant to ampicillin, ciprofloxacin, levofloxacin, and Bactrim - Seen on 03/30/22 w/ outpatient urology for UTI-like symptoms - prescribed Augmentin, Alfuzosin - UA again showing signs of cystitis with 4+ bacteruria and >30 WBCs (10-20 epis) -E. coli on urine culture. We will switch antibiotics to ceftriaxone 2 g IV daily. PSA unremarkable. Procalcitonin already below 0.5 therefore recommend treatment course for simple cystitis of 3 days. (6) Chronic hepatitis C with cirrhosis: Plan: Untreated HCV, present EtOH abuse, h/o IVDU - On arrival: Na 129 / Cr 1.89 / TBili 2.8 with DBili 1.1, AST 86, ALT 42, ALP 120, ammonia 155 ; APAP, salicylate, and EtOH negative ; lipase 106 - Known HCV+ cirrhosis that was being followed by [facility] - however, reportedly has not completed or started treatment - Recently discharged for RUQ pain, possibly choledocholithiasis - though HIDA was negative. Left AMA. - Child Dick Class B / MELD 28 -- though likely skewed by active RODRIGO - Lactulose ongoing, as outlined below - Outpatient care will need coordinated prior to discharge (7) Electrolyte abnormality: Plan: Continue to monitor potassium and magnesium daily and will replace with IV/p.o. supplementation as necessary. (8) Hyponatremia: Plan: Hypovolemic hyponatremia Continue to monitor with normal saline in intravenous fluids (9) Opioid use disorder: Plan: - Responded to Narcan in the field, suggesting overdose-component to his AMS - On Suboxone 8mg t.i.d. as an outpatient -- hold for now, monitor for opiate withdrawal - Consider Psych consult when appropriate (10) Alcohol use: Plan: - AWSS ordered - Drinking history unable to be obtained on arrival. Agree with intravenous thiamine but will increase dose to 200 mg IV 3 times daily (11) COPD (chronic obstructive pulmonary disease): Plan: - No maintenance inhalers or PFTS available on chart - Lung exam without wheezing at this time - Albuterol PRN (12) HTN (hypertension): Plan: Agree with continuing to hold losartan due to low normal blood pressures and liver cirrhosis. Would likely benefit from propranolol and diuretics rather than an ARB. (13) Sleep apnea: Plan: - CPAP qHS if able to tolerate (14) Type 2 diabetes mellitus: Plan: - Last A1c at 9.8% in 02/2022 - Pharmacy glycemic consult appreciated (15) Thrombocytopenia: Plan: - 32 on arrival - persistently dropping since 2020 - No signs of active bleeding. Monitor and trend while here - Cirrhosis management as above. (16) GERD (gastroesophageal reflux disease): Plan: - Protonix 40mg IV daily, will consider changing to p.o. tomorrow (17) Hyperammonemia: Plan Code: Full - will need clarified once mentation has improved, did not have direct conversation PPX: SCDs, chemical prophylaxis deferred due to platelets less than 50 Diet: full liquid Dispo: PCU -- Patient has history of AMA in the past. Patient is highly complex with multiple complex medical problems necessitating close PCP and specialist follow-up.Currently lacks capacity to sign out AGAINST MEDICAL ADVICE. Admission and Anticipated Discharge Date Admission Date: April 15, 2022 Subjective Patient more awake today but remains extremely confused. Denies any pain. Cannot give me any history. Managing to eat and drink clear liquids at this time. DigniShield no longer in place. No abdominal pain. No nausea or vomiting. Review of Systems Review of Systems: All systems reviewed & are unremarkable except as noted in Subjective (Unclear how reliable this is however due to patient cognition) Physical Exam Constitutional: well developed; + not well nourished and no acute distress Eyes: PERRL, conjunctivae normal, anicteric sclerae ENMT: Mouth: + dry oral mucous membranes Respiratory: normal respiratory effort; no respiratory distress Auscultation: + diminished lung sounds (Bibasal); no crackles and no wheezes Cardiovascular: Rate/Rhythm: regular rate and regular rhythm Heart Sounds: + murmur (apical) Gastrointestinal (Abdomen): Inspection/Auscultation: + hypoactive bowel sounds; abdomen not distended Percussion/Palpation: abdomen soft; abdomen nontender, no guarding and abdomen not rigid Skin: no rashes, warm and dry Neurologic: moves all extremities (Unable to follow commands but moving all 4 extremities), awake and + confused Psychiatric: Orientation: alert and oriented to person; + not oriented to place and + not oriented to time Genitourinary: no CVA tenderness Results & Data Results & Data ([facility]) Vital Signs (Past 12 Hours) Vital Signs Temp Pulse Resp BP Pulse Ox O2 Del Method O2 Flow Rate 04/17/22 11:48 37.6 C H 78 20 94/54 L 92 Nasal Cannula 2 04/17/22 08:00 Nasal Cannula 2 04/17/22 07:39 37.5 C 85 18 92/51 L 97 Nasal Cannula 2 04/17/22 03:37 37.4 C 75 20 118/61 91 Nasal Cannula 2 PG Care Time/CCT Total # of Minutes Spent Total Time Spent with Patient: Total time spent is greater than 50% in coordination of care (as documented) at patient's floor/unit and/or counseling patient: Coding Level of Care Code 68439 Subseq Hosp Care Lvl 3 Diagnoses Metabolic encephalopathy G93.41 Overdose T50.901A Hepatic encephalopathy K76.82 RODRIGO (acute kidney injury) N17.9 Urinary tract infection N39.0 Hematuria presence: without hematuria Urinary tract infection type: site unspecified Chronic hepatitis C with cirrhosis B18.2; K74.60 Electrolyte abnormality E87.8 Hyponatremia E87.1 Opioid use disorder F11.90 Alcohol use Z78.9 COPD (chronic obstructive pulmonary disease) J44.9 HTN (hypertension) I10 Sleep apnea G47.30 Type 2 diabetes mellitus E11.9 Thrombocytopenia D69.6 GERD (gastroesophageal reflux disease) K21.9 Hyperammonemia E72.20 (1) Urinary tract infection Hematuria presence: without hematuria Urinary tract infection type: site unspecified Qualified Code(s): N39.0 - Urinary tract infection, site not specified
[2022-04-17] MEDS ORDERED: POTASSIUM CHLORIDE 40 MEQ in SODIUM CHLORIDE 0.9% 1000ML 1,000 ML IV SCH (13:30)
[2022-04-17] MEDS: LACTULOSE SYRUP 20 GM/30 ML UDC PO SCH ×2 (13:58→20:13)
[2022-04-18] MEDS: FOLIC ACID 1 MG in SYRINGE 9.8 ML IV SCH (07:47)
[2022-04-18] MEDS: PANTOprazole 40 MG in SYRINGE 0 ML IV SCH (07:47)
[2022-04-18] MEDS: LACTULOSE SYRUP 20 GM/30 ML UDC PO SCH ×3 (07:48→21:58)
[2022-04-18] MEDS: INSULIN ASPART PER UNIT SC SCH ×4 (07:50→22:00)
[2022-04-18 07:52] LABS: Albumin Globulin Ratio 0.7 (0.9-2); Albumin Level 2.6 gm/dl (3.4-5.0); BUN Creatinine Ratio 24.3 (10-20); Bilirubin,Total 2.5 mg/dl (0.2-1.0); Calcium 7.8 mg/dl (8.5-10.1); Est GFR (African American) 63.3 ml/min; Est GFR (Non-African American) 54.6 ml/min; Globulin 3.9 gm/dl (2.5-4.0); Magnesium 1.7 mg/dl (1.7-2.4); Potassium 3.2 mmol/L (3.5-5.1); Total Protein 6.5 gm/dl (6.0-8.3)
[2022-04-18] MEDS: THIAMINE HCL 200 MG in SODIUM CHLORIDE 0.9% 50 ML IV SCH ×3 (07:56→22:02)
[2022-04-18] MEDS ORDERED: POTASSIUM CHLORIDE CRTAB 20 MEQ TABCR PO STA (08:14)
--- NOTE | 2022-04-18 08:29 | Hospitalist Progress Note ---
Date of Service April 18, 2022 Assessment & Plan (1) Metabolic encephalopathy: Plan: This is a 61-year-old male with a history of cirrhosis, chronic hepatitis C, alcohol abuse, IVDU per chart review, OUD on Suboxone, AAA, GERD, type 2 diabetes, COPD, ELINA, hypertension for syncope and altered mental status which was responsive to Narcan administration in the field. On arrival here, he was found to be agitated with multiple electrolyte abnormalities, an RODRIGO, elevated LFTs, and hyperammonemia at 155. Metabolic/hepatic encephalopathy - Multifactorial: Suspect most likely hepatic encephalopathy. Opiate/gabapentin overdose remains a possibility although he denies this today. Will restart his gabapentin at half his usual dose and Suboxone at his usual dose. UTI, dehydration also possible contributing - On arrival, found to be agitated but alert - did require Zyprexa x 1 in the ED, responded well - CT-H negative for acute processes / ABG with respiratory alkalosis on arrival - 7.49 / pCO2 32 / pO2 76 / pHCO3 24 - Procalcitonin minimally elevated, blood cultures negative at 48 hours, urine culture growing E. coli sensitive to ceftriaxone - Work-up and treatment for individual problems as below (2) Overdose: Plan: - Based on history and responding to Narcan, c/f Suboxone overdose and ?possibly gabapentin - Discussed with poison control on admission - Patient denying overdose therefore will defer any psychiatry consult Will restart his gabapentin and Suboxone today see how he does prior to discharge (3) Hepatic encephalopathy: Plan: - On arrival, found to be with level of 155 in setting of new AMS (at d/c in February, was in 60s) - Continue lactulose 20mg PO TID - will need to continue this on discharge. Aim for 4-5 bowel movements a day. (4) RODRIGO (acute kidney injury): Plan: - On arrival BUN 27 / Cr 1.89 (eGFR 38, CrCl 54) from BUN 12 / Cr 0.65 on 02/21 - Hold Losartan - more euvolemic today. No need for IV fluids or Lasix. Cr improving. (5) Urinary tract infection: Plan: - Patient was here approximately 1 mo ago for RUQ pain but left AMA. Had e/o cystitis and bacteruria at that time too with MDR-E. coli based on labs at that time - Historical info: - Urine culture 02/20/2022 demonstrating multidrug-resistant E. coli resistant to ampicillin, ciprofloxacin, levofloxacin, and Bactrim - Seen on 03/30/22 w/ outpatient urology for UTI-like symptoms - prescribed Augmentin, Alfuzosin - UA again showing signs of cystitis with 4+ bacteruria and >30 WBCs (10-20 epis) -E. coli on urine culture. Continue ceftriaxone 2g IV daily. PSA unremarkable. Procalcitonin already below 0.5 therefore recommend treatment course for simple cystitis of 3 days. Remove robertson catheter today (6) Chronic hepatitis C with cirrhosis: Plan: Untreated HCV, present EtOH abuse, h/o IVDU - On arrival: Na 129 / Cr 1.89 / TBili 2.8 with DBili 1.1, AST 86, ALT 42, ALP 120, ammonia 155 ; APAP, salicylate, and EtOH negative ; lipase 106 - Known HCV+ cirrhosis that was being followed by [facility] [place] [place] / [facility] - however, reportedly has not completed or started treatment - Recently discharged for RUQ pain, possibly choledocholithiasis - though HIDA was negative. Left AMA. - Child Dick Class B / MELD 28 -- though likely skewed by active RODRIGO - Lactulose ongoing, as outlined above - Outpatient care will need coordinated prior to discharge (7) Electrolyte abnormality: Plan: Continue to monitor potassium and magnesium daily and will replace with IV/p.o. supplementation as necessary. (8) Hyponatremia: Plan: Hypovolemic hyponatremia Continue to monitor with normal saline in intravenous fluids (9) Opioid use disorder: Plan: - Responded to Narcan in the field, suggesting possible overdose however patient denies this. - On Suboxone 8mg t.i.d. as an outpatient --we will restart today (10) Alcohol use: Plan: - AWSS ordered on admission. No benzodiazepines required. - Drinking history unable to be obtained on arrival. Agree with intravenous thiamine but will increase dose to 200 mg IV 3 times daily (11) COPD (chronic obstructive pulmonary disease): Plan: - No maintenance inhalers or PFTS available on chart - Lung exam without wheezing at this time - Albuterol PRN (12) HTN (hypertension): Plan: Agree with continuing to hold losartan due to low normal blood pressures and liver cirrhosis. Started on propranolol 10 mg p.o. twice daily for esophageal varices. (13) Sleep apnea: Plan: - CPAP qHS if able to tolerate (14) Type 2 diabetes mellitus: Plan: - Last A1c at 9.8% in 02/2022 - Pharmacy glycemic consult appreciated (15) Thrombocytopenia: Plan: - 32 on arrival - persistently dropping since 2020 - No signs of active bleeding. Monitor and trend while here - Cirrhosis management as above. (16) GERD (gastroesophageal reflux disease): Plan: Protonix switch to 40 mg p.o. twice daily, continue this (17) Hyperammonemia: Plan Code: Full PPX: SCDs, chemical prophylaxis deferred due to platelets less than 50 Diet: full liquid Dispo: PCU -- Patient has history of AMA in the past. Patient is highly complex with multiple complex medical problems necessitating close PCP and specialist follow-up. Admission and Anticipated Discharge Date Admission Date: April 15, 2022 Subjective Patient much more awake and alert today. Asking about discharge. He denies any overdose of his gabapentin or Suboxone. He is concerned he has been here for 3 days and does not remember much of it. He does not remember me from the last 2 days. He denies any chest pain, shortness of breath, abdominal pain, nausea or vomiting. Review of Systems Review of Systems: All systems reviewed & are unremarkable except as noted in Subjective Physical Exam Constitutional: well developed; + not well nourished and no acute distress Eyes: PERRL, conjunctivae normal, anicteric sclerae Respiratory: normal respiratory effort; no respiratory distress Auscultation: + diminished lung sounds (Bibasal); no crackles and no wheezes Cardiovascular: Rate/Rhythm: regular rate and regular rhythm Heart Sounds: + murmur (apical) Gastrointestinal (Abdomen): Inspection/Auscultation: normal bowel sounds; abdomen not distended Percussion/Palpation: abdomen soft; abdomen nontender, no guarding and abdomen not rigid Skin: no rashes, warm and dry Neurologic: moves all extremities and awake; not confused Psychiatric: A+Ox3, euthymic affect Genitourinary: no CVA tenderness Results & Data Results & Data ([facility]) Vital Signs (Past 12 Hours) Vital Signs Temp Pulse Pulse Resp BP Pulse Ox O2 Del Method 04/18/22 07:59 36.7 C 90 22 146/68 H 92 Nasal Cannula 04/18/22 07:32 Nasal Cannula 04/17/22 21:00 Nasal Cannula 04/18/22 03:38 36.8 C 77 17 134/73 99 Nasal Cannula 04/17/22 23:00 82 04/17/22 23:00 37.6 C H 80 16 123/71 92 Room Air O2 Flow Rate 04/18/22 07:59 2 04/18/22 07:32 2 04/17/22 21:00 2 04/18/22 03:38 2 04/17/22 23:00 04/17/22 23:00 2 PG Care Time/CCT Total # of Minutes Spent Total Time Spent with Patient: Total time spent is greater than 50% in coordination of care (as documented) at patient's floor/unit and/or counseling patient: Coding Level of Care Code 46757 Subseq Hosp Care Lvl 3 Diagnoses Metabolic encephalopathy G93.41 Overdose T50.901A Hepatic encephalopathy K76.82 RODRIGO (acute kidney injury) N17.9 Urinary tract infection N39.0 Hematuria presence: without hematuria Urinary tract infection type: site unspecified Chronic hepatitis C with cirrhosis B18.2; K74.60 Electrolyte abnormality E87.8 Hyponatremia E87.1 Opioid use disorder F11.90 Alcohol use Z78.9 COPD (chronic obstructive pulmonary disease) J44.9 HTN (hypertension) I10 Sleep apnea G47.30 Type 2 diabetes mellitus E11.9 Thrombocytopenia D69.6 GERD (gastroesophageal reflux disease) K21.9 Hyperammonemia E72.20 (1) Urinary tract infection Hematuria presence: without hematuria Urinary tract infection type: site unspecified Qualified Code(s): N39.0 - Urinary tract infection, site not specified
[2022-04-18] MEDS ORDERED: LANTUS PER UNIT CHARGE SQ SCH (09:00)
[2022-04-18] MEDS: GABAPENTIN 800 MG TAB PO SCH ×3 (09:44→21:58)
[2022-04-18] MEDS: PROPRANOLOL HCL 10 MG TAB PO SCH ×2 (09:44→21:58)
[2022-04-18] MEDS: MAGNESIUM SULFATE / D5W 1 GM/100 ML BAG IV SCH ×2 (09:44→10:41)
[2022-04-18] MEDS: ASPIRIN 81 MG ECTAB PO SCH (09:44)
[2022-04-18] MEDS: FOLIC ACID 1 MG TAB PO SCH (09:44)
[2022-04-18] MEDS: ALFUZOSIN HCL 10 MG TAB PO SCH (09:44)
[2022-04-18] MEDS: buprenorphine HCL 8 MG SUBL SL SCH ×2 (09:46→21:58)
[2022-04-18] MEDS: cefTRIAXone SODIUM 2,000 MG in DEXTROSE 5% 50 ML IV SCH (10:41)
[2022-04-18 16:26] LABS: 7-Aminoclonaz, Confirm NEGATIVE ng/mL (<25); Hydro-Alp Ur, GC/MS NEGATIVE ng/mL (<25); Hydroxyethylflurazepam, Conf NEGATIVE ng/mL (<50); Hydroxymidazolam Ur, GC/MS NEGATIVE ng/mL (<50); Hydroxytriazolam NEGATIVE ng/mL (<50); Lorazepam, Ur GC/MS NEGATIVE ng/mL (<50); Nordiazepam, Confirm 164 ng/mL (<50); Oxazepam Ur, GC/MS 102 ng/mL (<50); Temazepam, Confirm 321 ng/mL (<50)
[2022-04-18] MEDS: PANTOprazole 40 MG TAB PO SCH (21:58)
--- NOTE | 2022-04-18 22:10 | Communication Note ---
Date of Service: April 18, 2022 Notified by patient's RN that he had become progressively more drowsy since the start of shift and was difficult to arouse during rounds. Reportedly throughout the day, was doing OK and pretty responsive. Noted that his gabapentin and Subutex were restarted today since being held from admission. He has continued to receive lactulose as scheduled and had a total of 5 BMs today per RN. On arrival, patient is resting and appears comfortable, non-toxic. Protecting airway. 105/63, HR 76, RR 20, SpO2 >90% on 2L NC. He easily arises with verbal stimuli, but quickly falls asleep between questioning. When he does answer questions, his answers are appropriate. MS - Responds to questions appropriately. Abdomen - soft/NT/ND. Neuro - PERRL. EOMs in-tact. UE, LE strength 5/5. No observed asterixis, though somewhat difficult exam given quickly falls back asleep and can't keep wrists in extension. Somnolence - Suspect secondary to time of day and the re-initiation of medications with sedating side effects, including Suboxone and gabapentin. His lactulose appears to be working. RN asked if these can be held tonight due to his appreciable somnolence. Think this is reasonable, especially considering he came in with suspected overdose as contributory to his AMS - possible doses need to be adjusted, defer to day team. Will monitor. In close contact with patient's RN. RN also noted he had reported swallowing difficulties during the day. 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 Resident Activity Tracking Resident Involvement: Resident Care Provided Care Provided: Adult Hospital Medicine
[2022-04-19] MEDS: INSULIN ASPART PER UNIT SC SCH ×4 (08:21→21:17)
[2022-04-19] MEDS: PROPRANOLOL HCL 10 MG TAB PO SCH ×2 (08:22→20:17)
[2022-04-19] MEDS: PANTOprazole 40 MG TAB PO SCH ×2 (08:23→20:17)
[2022-04-19] MEDS: FOLIC ACID 1 MG TAB PO SCH (08:23)
[2022-04-19] MEDS: ASPIRIN 81 MG ECTAB PO SCH (08:23)
[2022-04-19] MEDS: GABAPENTIN 800 MG TAB PO SCH (08:23)
[2022-04-19] MEDS: ALFUZOSIN HCL 10 MG TAB PO SCH (08:23)
[2022-04-19] MEDS: buprenorphine HCL 8 MG SUBL SL SCH ×2 (08:26→20:16)
[2022-04-19] MEDS: THIAMINE HCL 200 MG in SODIUM CHLORIDE 0.9% 50 ML IV SCH ×2 (08:27→14:54)
[2022-04-19] MEDS ORDERED: LANTUS PER UNIT CHARGE SQ SCH (09:00)
[2022-04-19] MEDS: LACTULOSE SYRUP 20 GM/30 ML UDC PO SCH ×3 (09:33→20:17)
--- NOTE | 2022-04-19 10:54 | Pharmacy Report ---
Pharmacy Glycemic Short Note 2 - Date of Service April 19, 2022 - Glycemic Short BSG Results (Last 24 hours): 04/18/22 04/18/22 04/18/22 11:23 16:15 20:46 POC Glucose 170 H 98 220 H 04/19/22 07:22 POC Glucose 158 H OUTPATIENT ANTIDIABETIC REGIMEN: * Lantus 80 units bid, humalog 30 units tidm ASSESSMENT: 04/19 * Patient received 30 units of insulin yesterday of which 12 were basal, diet advanced to T2DM * AM fasting BSG slightly elevated at 158, increased basal insulin slightly to 15 units QAM * Will consider adjusting breakfast time Novolog CF/CR due to elevated lunchtime BSGs tomorrow 04/17 * Diet advanced to full liquid from NPO * AM fasting within range (111 mg/dL), maintain lantus dose * Novolog parameters adjusted given low amount of insulin needed yesterday while NPO, will continue to monitor. 04/16 * 61 year old admitted with encephalopathy, potential drug overdose, uti. Pharmacy consulted to assist with glycemic management. Patient currently on very large amounts of insulin at home. A1c elevated as of 03/11 * Prior admission, patient's blood sugars had been low on admission - basal insulin held as patient also with N/V * Plan to start conservatively with basal insulin as patient NPO - He was started at 10 units Lantus bid. I may have scale for HS for 0-10 units based upon BSG PLAN FOR INPATIENT GLYCEMIC CONTROL: * Hold outpatient oral diabetes medications * Basal insulin * Lantus 15 units QAM * Bolus insulin * NovoLog per scale ACHS or Q6hrs while NPO * Goal Range: Low 110 mg/dL - High 140 mg/dL * Correction Factor: 20 mg/dL/unit * Nutritional / Prandial insulin per carb ratio of 1 unit per 7 grams CHO consumed
[2022-04-19 11:02] LABS: Hematocrit (blood only) 29.5 % (40.1-51.0); Hemoglobin 10.1 g/dl (14.0-18.0); Mean Corpuscular Hemoglobin 30.5 pg (25.0-34.0); Mean Corpuscular Hgb Conc 34.2 g/dL (32.0-36.0); Mean Corpuscular Volume 89.1 fL (80.0-100.0); Mean Platelet Volume 11.5 fL (9.4-12.4); Platelet Count 29 K/uL (130-400); RDW Coefficient of Variation 17.2 % (11.5-14.5); RDW Standard Deviation 55.2 fL (36.4-46.3); Red Blood Count 3.31 M/uL (4.63-6.08); White Blood Count 4.68 K/ul (4.8-10.8)
[2022-04-19 11:17] LABS: Albumin Globulin Ratio 0.6 (0.9-2); Albumin Level 2.4 gm/dl (3.4-5.0); BUN Creatinine Ratio 28.1 (10-20); Bilirubin,Total 2.6 mg/dl (0.2-1.0); Calcium 7.5 mg/dl (8.5-10.1); Creatinine Clr Calc Pharmacy 87.8 ml/min; Est GFR (African American) 81.1 ml/min; Globulin 3.7 gm/dl (2.5-4.0); Magnesium 1.6 mg/dl (1.7-2.4); Phosphorus 2.4 mg/dl (2.5-4.9); Potassium 3.2 mmol/L (3.5-5.1); Total Protein 6.1 gm/dl (6.0-8.3)
[2022-04-19 11:18] LABS: Basophils # (auto) 0.02 K/uL (0-0.2); Basophils % (auto) 0.4 %; Eosinophils # (auto) 0.14 K/uL (0-0.50); Immature Granulocytes # (auto) 0.01 K/uL (0.00-0.02); Immature Granulocytes % (auto) 0.2 %; Lymphocytes # (auto) 0.93 K/uL (1.2-3.4); Lymphocytes % (auto) 19.9 %; Monocytes # (auto) 0.76 K/uL (0.24-0.82); Monocytes % (auto) 16.2 %; Neutrophils # (auto) 2.82 K/uL (1.4-6.5); Neutrophils % (auto) 60.3 %
[2022-04-19] MEDS: cefTRIAXone SODIUM 2,000 MG in DEXTROSE 5% 50 ML IV SCH (11:51)
[2022-04-19] MEDS ORDERED: POTASSIUM CHLORIDE CRTAB 20 MEQ TABCR PO STA (11:59)
[2022-04-19] MEDS: MAGNESIUM SULFATE / D5W 1 GM/100 ML BAG IV SCH ×3 (12:57→16:54)
[2022-04-19] MEDS: GABAPENTIN 250 MG/5 ML 470 ML BTL PO SCH ×2 (13:04→20:22)
--- NOTE | 2022-04-19 14:12 | Psychiatric Consultation ---
Date of Consultation April 19, 2022 Impression / Recommendations Impression 61-year-old man with history of polysubstance use disorders on maintenance Suboxone with recent alcohol use relapse which seems to have led to metabolic encephalopathy with hyperammonemia who was earlier requesting to leave AMA but has since changed his mind and would like to stay and continue to receive medical treatment. No current evidence of delirium at the time of my assessment this afternoon though given the waxing and waning nature of delirium this could change in the future at which point if he asked to leave AMA again he would need to be assessed for decision making capacity to make this decision as this is decision and time specific. Psychiatric liaison to help with referral to outpatient psychiatric care as he feels that this would be helpful moving forward particularly given recent relapse of alcohol use. He feels well supported in his substance use recovery with his involvement in AA and NA and with Suboxone prescribed by his primary care provider and declines any further resources for substance use treatment at this time. Acute risk of harm to self is low given denial of suicidal ideation, stable mood and future oriented. Chronic risk is low to moderate given no prior history of suicide attempts, no history of psychiatric hospitalizations, and also with history of alcohol use which slightly increases chronic risk particularly if he were to relapse on use. Multiple protective factors including good family support, involvement in AA and NA and good rapport with his primary care provider. (1) Hepatic encephalopathy: (2) Opioid use disorder: (3) Alcohol use: Plan -If he requests to leave AMA again would need to be assessed for decision making capacity to do so to ensure no evidence of delirium and that he can state risks/benefits to leaving -Psych liason to help send referral for outpatient psychiatric care as he's interested in this -Consider education and providing for naloxone nasal spray kit script at time of discharge in case symptoms were due to misuse of suboxone. Psych History Identifying Data 61 yo man with a history of opioid use disorder in sustained remission on maintenance Suboxone, chronic hepatitis C with cirrhosis, alcohol use disorder admitted medically for altered mental status likely due to hyperammonemia vs misuse of Suboxone and gabapentin. Psychiatry was consulted after he asked to leave AMA for risk assessment. Chief Complaint "I thought about it but I changed my mind I ain't going to go I need to stay and get the help". History of Present Illness Zack was medically admitted due to altered mental status with concern for possible misuse of his prescribed Suboxone and possibly gabapentin versus metabolic encephalopathy due to cirrhosis with hyper ammonemia. Initially there was a thought that this could have represented an overdose unclear if this could have been intentional though he is consistently denied misusing his prescribed medications nor that this was any type of suicide attempt. Meeting with Zack today he is fully oriented states he has changed his mind about leaving AMA. As after reconsideration he has decided he is willing to stay as he feels he needs the medical help. He is unsure what led to his altered mental status though adamantly denies any recent changes in his medications, denies misusing or overtaking any of his medications and denies that this was any type of suicide attempt. When asked about any past or current thoughts of suicidal ideation he states "f*ck no" and denies any history of prior suicide attempts, inpatient psychiatric treatment nor any access to lethal means at home. He does recall a question of bipolar disorder in his 20s and is interested in an offer to be referred for outpatient psychiatric care as he thinks that seeing a psychiatrist could be helpful though he denies any current mood symptoms stating "I feel good now". He has dealt with substance use disorders for much of his life including history of residential substance use treatment last in [place] in 2013 for history of IV drug use via heroin. He reports he has been stable on Suboxone is prescribed by his primary care provider and attends NA meetings daily. Alcohol has also been a challenge for him in the past and he attends AA meetings also daily and states that he did have a relapse approximately 2 weeks ago where he went on a "couple day jones" but was forthcoming about this with his sponsor and AA and since this time has not consumed any alcohol. He does agree that it is very possible that his alcohol use could have led higher ammonia levels resulting in his altered mental status and feels this is the message that has been communicated to him by other medical providers he has been seeing while hospitalized. He feels well supported by his family including his sister and lives alone in an apartment in [place] near [place]. Past Psychiatric History Previous Psych History: see HPI Allergies Allergy/AdvReac Type Severity Reaction Status Date / Time No Known Allergies Allergy Verified 04/15/22 19:42 Home Medications Medication Instructions Recorded Confirmed Type gabapentin 800 mg tablet 800 mg PO QID 08/20/20 04/15/22 History insulin glargine 100 unit/mL (3 80 unit subcut BID 08/20/20 04/15/22 History mL) subcutaneous pen (Lantus Solostar U-100 Insulin) insulin lispro 100 unit/mL 30 unit subcut TIDM 08/20/20 04/15/22 History subcutaneous solution (Humalog U-100 Insulin) aspirin 81 mg tablet,delayed 81 mg PO DAILY 11/25/20 04/15/22 History release (Chavo Low Dose Aspirin) furosemide 20 mg tablet 20 mg PO BID PRN as directed 06/01/21 04/15/22 History omeprazole 20 mg capsule,delayed 20 mg PO BID 06/01/21 04/15/22 History release ipratropium 0.5 mg-albuterol 3 mg 3 ml inhalation QID PRN Shortness 12/27/21 04/15/22 History (2.5 mg base)/3 mL nebulization Of Breath Or Wheezing soln lidocaine 5 % topical ointment 1 applic topical QID PRN Pain 12/27/21 04/15/22 History losartan 100 mg tablet 100 mg PO DAILY 12/27/21 04/15/22 History ondansetron HCl 4 mg tablet 4 mg PO BID PRN Nausea And Vomiting 12/27/21 04/15/22 History alfuzosin 10 mg tablet,extended 10 mg PO DAILY #30 tabs 03/30/22 04/15/22 Rx release 24 hr buprenorphine HCl 8 mg sublingual 8 mg sublingual TID 03/30/22 04/15/22 History tablet Substance Abuse History see HPI Personal History Living Arrangements: Apartment Highest Grade Completed: High School Graduate Employment Status: Disabled Beliefs That Will Affect Care: None Patient History Medical History AAA (abdominal aortic aneurysm) per pt, last evaluated 6 mo ago [facility] or [facility]? "around 5 cm" -->says was referred to vascular surgery but no appt as of yet Alcoholic cirrhosis Anxiety Bipolar disorder COPD (chronic obstructive pulmonary disease) no inh at present Depression DM type 2 (diabetes mellitus, type 2) IDDM Dysphagia Encephalopathy Fibromyalgia Gastroparesis GERD (gastroesophageal reflux disease) Hepatitis C dx 1 mo ago --> per pt, referred to [facility] GI in [place] for treatment but no appt as of yet History of DVT (deep vein thrombosis) "few years ago" LLE -- unk etiology -- per pt, no treatment at time of dx History of heroin abuse quit 2017 History of kidney stones History of migraine HTN (hypertension) Hyperlipidemia Hypertension Nocturnal hypoxia per pt, prescribed home O2 @ 2 LPM qHS and PRN daily in past but unable to obtain as of late r/t financial struggles. admits to using sister's oxygen at night when able. 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 Sleep apnea non compliant with CPAP Surgical History History of colonoscopy History of ear surgery as a child History of esophagogastroduodenoscopy (EGD) History of tonsillectomy History of tooth extraction S/P excisional debridement LLE Family History Other No family history of adverse response to anesthesia No significant medical problems Social History Smoking Status: Current every day smoker Tobacco Type: Cigarettes Cigarettes Per Day: 6; Second Hand Exposure: Yes; Hx Alcohol Use: Yes Hx Substance Use: Yes Last Used Substance Other:: Currently on subutex. Patient states clean for 6 years. Substance Use Type Other:: last used meth 2017 Preferred Language: Syriac Communication Ability: Unable [employer] Required: No Beliefs That Will Affect Care: None marital status: Single Current Living Situation: Family Current Living Situation Comment: with sister How many Children do You have: 0 Feels Safe at Home: Yes Assistive Devices: Cane Physical Exam Psychiatric: Orientation: alert and oriented x 3 Apperance: appropriately dressed and appropriately groomed Eye Contact: good eye contact Motor Behavior: no abnormal motor movements Speech: normal rate/rhythm/volume of speech Affect: euthymic affect Mood: no depressed mood and no anxious mood Thought Process: linear/logical thought process Thought Content: reality based without delusions Suicidal Thoughts: denies suicidal thoughts Homicidal Thoughts: denies homicidal thoughts Hallucinations: no auditory hallucinations and no visual hallucinations Cognition: recent memory grossly intact, remote memory grossly intact, attention grossly intact and language grossly intact Estimated Intelligence: consistent with education level Insight: + fair insight Judgement: + limited judgement Vital Signs (Past 24 Hours): Last Vital Signs Temp 37.0 C 04/19/22 12:13 Pulse 60 04/19/22 12:13 Resp 18 04/19/22 12:13 BP 95/59 L 04/19/22 12:13 Pulse Ox 92 04/19/22 12:13 O2 Del Method 04/19/22 12:13 O2 Flow Rate 2 04/19/22 12:13 Review of Systems All systems reviewed & are unremarkable except as noted in HPI & below Results & Data (PSY) Medications Administered Alfuzosin HCl (Alfuzosin Hcl 10 Mg Tab) 10 mg PO DAILY REINA Stop: 05/18/22 08:59 Last Admin: 04/19/22 08:23 Dose: 10 mg Documented By: Admin: 04/18/22 09:44 Dose: 10 mg Documented By: HUNG Aspirin (Aspirin 81 Mg Ectab) 81 mg PO DAILY REINA Stop: 05/18/22 08:59 Last Admin: 04/19/22 08:23 Dose: 81 mg Documented By: Admin: 04/18/22 09:44 Dose: 81 mg Documented By: HUNG Buprenorphine HCl (Buprenorphine Hcl 8 Mg Subl) 8 mg SL QAM REINA Stop: 05/18/22 08:59 Last Admin: 04/19/22 08:26 Dose: 8 mg Documented By: Admin: 04/18/22 09:46 Dose: 8 mg Documented By: HUNG Buprenorphine HCl (Buprenorphine Hcl 8 Mg Subl) 16 mg SL PM REINA Stop: 05/18/22 20:59 Last Admin: 04/18/22 21:58 Dose: Not Given Documented By: HOLLIS Folic Acid (Folic Acid 1 Mg Tab) 1 mg PO QAM REINA Stop: 05/18/22 08:59 Last Admin: 04/19/22 08:23 Dose: 1 mg Documented By: Admin: 04/18/22 09:44 Dose: 1 mg Documented By: HUNG Gabapentin (Gabapentin 250 Mg/5 Ml 470 Ml Btl) 200 mg PO TID REINA Stop: 05/19/22 13:59 Last Admin: 04/19/22 13:04 Dose: 200 mg Documented By: Thiamine HCl 200 mg/ Sodium (Chloride) 52 mls @ 210 mls/hr IV TID REINA Stop: 04/19/22 20:59 Last Infusion: 04/19/22 08:42 Dose: 0 mls/hr Documented By: Admin: 04/19/22 08:27 Dose: 210 mls/hr Documented By: Infusion: 04/18/22 23:49 Dose: 0 mls/hr Documented By: Admin: 04/18/22 22:02 Dose: 210 mls/hr Documented By: Infusion: 04/18/22 15:43 Dose: 0 mls/hr Documented By: Admin: 04/18/22 14:20 Dose: 210 mls/hr Documented By: Infusion: 04/18/22 08:31 Dose: 0 mls/hr Documented By: Admin: 04/18/22 07:56 Dose: 210 mls/hr Documented By: Infusion: 04/17/22 20:46 Dose: 0 mls/hr Documented By: Admin: 04/17/22 20:12 Dose: 200 mls/hr Documented By: Infusion: 04/17/22 14:16 Dose: 0 mls/hr Documented By: Admin: 04/17/22 13:58 Dose: 200 mls/hr Documented By: Infusion: 04/17/22 08:31 Dose: 0 mls/hr Documented By: Admin: 04/17/22 08:00 Dose: 200 mls/hr Documented By: Infusion: 04/16/22 21:15 Dose: 0 mls/hr Documented By: Admin: 04/16/22 21:00 Dose: 210 mls/hr Documented By: SAMEER Ceftriaxone Sodium 2,000 mg/ (Dextrose) 70 mls @ 100 mls/hr IV Q24H REINA; Protocol Stop: 04/20/22 10:59 Last Infusion: 04/19/22 12:33 Dose: 0 mls/hr Documented By: Admin: 04/19/22 11:51 Dose: 100 mls/hr Documented By: Infusion: 04/18/22 11:20 Dose: 0 mls/hr Documented By: Admin: 04/18/22 10:41 Dose: 100 mls/hr Documented By: Infusion: 04/17/22 12:13 Dose: 0 mls/hr Documented By: Admin: 04/17/22 11:25 Dose: 100 mls/hr Documented By: HUNG Magnesium Sulfate/Dextrose (Magnesium Sulfate / D5w) 1 gm in 100 mls @ 50 mls/hr IV Q2H REINA Stop: 04/19/22 17:59 Last Admin: 04/19/22 12:57 Dose: 50 mls/hr Documented By: Insulin Aspart (Insulin Aspart Per Unit) 0 units SC ACHS REINA Stop: 05/17/22 07:29 Last Admin: 04/19/22 11:55 Dose: 7 units Documented By: Co-signed By: JOCELYN Admin: 04/19/22 08:21 Dose: 5 units Documented By: Co-signed By: QUENTIN Admin: 04/18/22 22:00 Dose: 4 units Documented By: HOLLIS Co-signed By: SONNY Admin: 04/18/22 17:07 Dose: Not Given Documented By: Admin: 04/18/22 12:09 Dose: 9 units Documented By: HUNG Co-signed By: ONEL Admin: 04/18/22 07:50 Dose: 5 units Documented By: HUNG Co-signed By: MIKAYLA Admin: 04/17/22 20:47 Dose: Not Given Documented By: Admin: 04/17/22 16:48 Dose: Not Given Documented By: Admin: 04/17/22 12:14 Dose: Not Given Documented By: Admin: 04/17/22 07:55 Dose: 3 units Documented By: HUNG Co-signed By: ONEL Insulin Glargine (Lantus Per Unit Charge) 15 units SQ DAILY [facility] Stop: 05/18/22 08:59 Last Admin: 04/19/22 08:21 Dose: 15 units Documented By: Co-signed By: QUENTIN Lactulose (Lactulose Syrup 20 Gm/30 Ml Udc) 20 gm PO TID REINA Stop: 05/17/22 13:59 Last Admin: 04/19/22 09:33 Dose: 20 gm Documented By: Admin: 04/18/22 21:58 Dose: Not Given Documented By: Admin: 04/18/22 14:20 Dose: 20 gm Documented By: Admin: 04/18/22 07:48 Dose: 20 gm Documented By: Admin: 04/17/22 20:13 Dose: 20 gm Documented By: Admin: 04/17/22 13:58 Dose: 20 gm Documented By: HUNG Pantoprazole Sodium (Pantoprazole 40 Mg Tab) 40 mg PO BID REINA Stop: 05/18/22 20:59 Last Admin: 04/19/22 08:23 Dose: 40 mg Documented By: Admin: 04/18/22 21:58 Dose: Not Given Documented By: HOLLIS Propranolol HCl (Propranolol Hcl 10 Mg Tab) 10 mg PO BID [facility] Stop: 05/18/22 08:59 Last Admin: 04/19/22 08:22 Dose: 10 mg Documented By: Admin: 04/18/22 21:58 Dose: Not Given Documented By: Admin: 04/18/22 09:44 Dose: 10 mg Documented By: HUNG Coding Level of Care Code 42925 Inpt Consult Level 3 Diagnoses Hepatic encephalopathy K76.82 Opioid use disorder F11.90 Alcohol use Z78.9
--- NOTE | 2022-04-19 15:33 | XRay Report ---
XR chest 1V portable HISTORY: 61 years-old Male hypoxia acute hypoxia COMPARISON: Chest radiograph 04/15/2022 TECHNIQUE: Portable AP view of the chest FINDINGS: Cardiac silhouette is enlarged. Emphysema with pulmonary vascular congestion is noted. Linear right b asilar opacity may represent atelectasis. No pneumothorax or large pleural effusion. Degenerative maia nges of the shoulders and spine. IMPRESSION: 1. Cardiomegaly with pulmonary vascular congestion. 2. Pulmonary emphysema. ACT 112: Negative or not required by law. The above report was generated using voice recognition software. It may contain grammatical, syntax o r spelling errors. Electronically signed by: Ramesh Hess M.D. 04/19/2022 3:32 PM
--- NOTE | 2022-04-19 16:36 | Hospitalist Progress Note ---
Date of Service April 19, 2022 Assessment & Plan (1) Metabolic encephalopathy: Plan: This is a 61-year-old male with a history of cirrhosis, chronic hepatitis C, alcohol abuse, IVDU per chart review, OUD on Suboxone, AAA, GERD, type 2 diabetes, COPD, ELINA, hypertension for syncope and altered mental status which was responsive to Narcan administration in the field. On arrival here, he was found to be agitated with multiple electrolyte abnormalities, an RODRIGO, elevated LFTs, and hyperammonemia at 155. Metabolic/hepatic encephalopathy - Multifactorial: Suspect most likely hepatic encephalopathy. Opiate/gabapentin overdose remains a possibility although he continues to deny this. Given drowsiness last night we will reduce his gabapentin dose to 200 mg 3 times daily continue his Subutex. - On arrival, found to be agitated but alert - did require Zyprexa x 1 in the ED, responded well - CT-H negative for acute processes / ABG with respiratory alkalosis on arrival - 7.49 / pCO2 32 / pO2 76 / pHCO3 24 - Procalcitonin minimally elevated, blood cultures negative at 48 hours, urine culture growing E. coli sensitive to ceftriaxone - Work-up and treatment for individual problems as below (2) Overdose: Plan: - Based on history and responding to Narcan, c/f Subutex overdose and ?possibly gabapentin - Discussed with poison control on admission - Patient denying overdose - appreciate psychiatry consult Will continue his gabapentin at 200 mg and Subutex as long as he does not remain drowsy. (3) Hepatic encephalopathy: Plan: - On arrival, found to be with level of 155 in setting of new AMS (at d/c in February, was in 60s) - Continue lactulose 20mg PO TID - will need to continue this on discharge. Aim for 4-5 bowel movements a day. (4) Hypoxia: Plan: -Appears more hypervolemic today. We will repeat chest x-ray to assess for need for restarting Lasix. Given just coming off IV fluids to help with RODRIGO will defer starting Lasix to tomorrow. (5) RODRIGO (acute kidney injury): Plan: Now resolved - On arrival BUN 27 / Cr 1.89 (eGFR 38, CrCl 54) from BUN 12 / Cr 0.65 on 02/21 - Hold Losartan (6) Urinary tract infection: Plan: - Patient was here approximately 1 mo ago for RUQ pain but left AMA. Had e/o cystitis and bacteruria at that time too with MDR-E. coli based on labs at that time - Historical info: - Urine culture 02/20/2022 demonstrating multidrug-resistant E. coli resistant to ampicillin, ciprofloxacin, levofloxacin, and Bactrim - Seen on 03/30/22 w/ outpatient urology for UTI-like symptoms - prescribed Augmentin, Alfuzosin - UA again showing signs of cystitis with 4+ bacteruria and >30 WBCs (10-20 epis) -E. coli on urine culture. Continue ceftriaxone 2g IV daily. PSA unremarkable. Procalcitonin already below 0.5 therefore recommend treatment course for simple cystitis of 3 days (completed 04/19) (7) Chronic hepatitis C with cirrhosis: Plan: Untreated HCV, present EtOH abuse, h/o IVDU - On arrival: Na 129 / Cr 1.89 / TBili 2.8 with DBili 1.1, AST 86, ALT 42, ALP 120, ammonia 155 ; APAP, salicylate, and EtOH negative ; lipase 106 - Known HCV+ cirrhosis that was being [place] [facility] [place] [facility] - however, reportedly has not completed or started treatment - Recently discharged for RUQ pain, possibly choledocholithiasis - though HIDA was negative. Left AMA. - Child Dick Class B / MELD 28 -- though likely skewed by active RODRIGO - Lactulose ongoing, as outlined above - Outpatient care will need coordinated prior to discharge (8) Electrolyte abnormality: Plan: Continue to monitor potassium and magnesium daily and will replace with IV/p.o. supplementation as necessary. (9) Hyponatremia: Plan: Hypovolemic hyponatremia Continue to monitor with normal saline in intravenous fluids (10) Opioid use disorder: Plan: - Responded to Narcan in the field, suggesting possible overdose however patient denies this. - On Suboxone 8mg t.i.d. as an outpatient --we will restart today (11) Alcohol use: Plan: Recent relapse although generally reports being sober for the last 2 years. Ethyl alcohol level negative on admission. Not at risk of alcohol withdrawal. Thiamine 200 mg IV 3 times daily for 3 days - will switch to PO 100mg PO tomorrow (12) COPD (chronic obstructive pulmonary disease): Plan: - No maintenance inhalers or PFTS available on chart - consider this at follow up - Lung exam without wheezing at this time - Albuterol PRN (13) HTN (hypertension): Plan: Continue to hold losartan. Suspect this needs to be discontinued on discharge. Started on propranolol 10 mg p.o. twice daily for esophageal varices. (14) Sleep apnea: Plan: - CPAP qHS if able to tolerate (15) Type 2 diabetes mellitus: Plan: - Last A1c at 9.8% in 02/2022 - Pharmacy glycemic consult appreciated - Vastly lower insulin outpatient requirement compared to inpatient with elevated HbA1c - Concerning for very poor diet versus noncompliance. He did tow picker his insulin in February. (16) Thrombocytopenia: Plan: - 32 on arrival - persistently dropping since 2020 - No signs of active bleeding. Monitor and trend while here - Cirrhosis management as above. (17) GERD (gastroesophageal reflux disease): Plan: Protonix switch to 40 mg p.o. twice daily, continue this (18) Hyperammonemia: Plan Code: Full PPX: SCDs, chemical prophylaxis deferred due to platelets less than 50 Diet: Heart healthy, type 2 diabetes, low-sodium Dispo: Stable for transfer to [facility] Admission and Anticipated Discharge Date Admission Date: April 15, 2022 Subjective Requesting his Subutex as he feels he is withdrawing without this however denies any abdominal pain, diarrhea, nausea, vomiting, rhinorrhea, diaphoresis. He does feel he is becoming more restless. Was held last night due to concern patient is getting progressively more drowsy and difficult to arouse the patient denies this. Easily arousable to verbal stimuli but quickly falling back to sleep per resident exam. Today he is fully awake, alert and orientated x3. He reports having a relapse in his alcohol 2 weeks ago for a few days. He cannot tell me why this happened. He denies any more recent alcohol use. He again denies any overdose with his Subutex or gabapentin. He is unsure what happened to bring him into the hospital today. Low normal blood pressure with starting propranolol. He denies any dizziness. Up and walking around the room without issues. No urinating issues since Azar catheter was removed yesterday. Review of Systems Review of Systems: All systems reviewed & are unremarkable except as noted in Subjective Physical Exam Constitutional: well developed; + not well nourished and no acute distress Respiratory: normal respiratory effort; no respiratory distress Auscu ltation: + crackles (Bibasal); no diminished lung sounds and no wheezes Cardiovascular: Rate/Rhythm: regular rate and regular rhythm Heart Sounds: + murmur (apical) Extremities: + pedal edema (1+ bilateral equal) Gastrointestinal (Abdomen): Inspection/Auscultation: normal bowel sounds; abdomen not distended Percussion/Palpation: abdomen soft; abdomen nontender, no guarding and abdomen not rigid Skin: no rashes, warm and dry Neurologic: moves all extremities and awake; not confused Psychiatric: A+Ox3, euthymic affect Genitourinary: no CVA tenderness Results & Data Results & Data ([facility]) Vital Signs (Past 12 Hours) Vital Signs Temp Pulse Pulse Resp BP BP Pulse Ox 04/19/22 15:00 76 04/19/22 15:30 36.7 C 72 19 121/65 93 04/19/22 12:13 37.0 C 60 18 95/59 L 92 04/19/22 07:56 37.6 C H 85 18 144/82 H 92 04/19/22 07:00 73 04/19/22 07:00 O2 Del Method O2 Flow Rate 04/19/22 15:00 04/19/22 15:30 Nasal Cannula 2 04/19/22 12:13 Nasal Cannula 2 04/19/22 07:56 Nasal Cannula 2 04/19/22 07:00 04/19/22 07:00 Nasal Cannula 2 PG Care Time/CCT Total # of Minutes Spent Total Time Spent with Patient: Total time spent is greater than 50% in coordination of care (as documented) at patient's floor/unit and/or counseling patient: Coding Level of Care Code 48795 Subseq Hosp Care Lvl 3 Diagnoses Metabolic encephalopathy G93.41 Overdose T50.901A Hepatic encephalopathy K76.82 Hypoxia R09.02 RODRIGO (acute kidney injury) N17.9 Urinary tract infection N39.0 Hematuria presence: without hematuria Urinary tract infection type: site unspecified Chronic hepatitis C with cirrhosis B18.2; K74.60 Electrolyte abnormality E87.8 Hyponatremia E87.1 Opioid use disorder F11.90 Alcohol use Z78.9 COPD (chronic obstructive pulmonary disease) J44.9 HTN (hypertension) I10 Sleep apnea G47.30 Type 2 diabetes mellitus E11.9 Thrombocytopenia D69.6 GERD (gastroesophageal reflux disease) K21.9 Hyperammonemia E72.20 (1) Urinary tract infection Hematuria presence: without hematuria Urinary tract infection type: site unspecified Qualified Code(s): N39.0 - Urinary tract infection, site not specified
[2022-04-19] MEDS: MAGNESIUM OXIDE 400 MG TAB PO SCH (20:17)
[2022-04-20 06:56] LABS: Hematocrit (blood only) 28.6 % (40.1-51.0); Hemoglobin 9.9 g/dl (14.0-18.0); Mean Corpuscular Hemoglobin 30.8 pg (25.0-34.0); Mean Corpuscular Hgb Conc 34.6 g/dL (32.0-36.0); Mean Corpuscular Volume 89.1 fL (80.0-100.0); Platelet Count 31 K/uL (130-400); RDW Coefficient of Variation 16.6 % (11.5-14.5); RDW Standard Deviation 54.4 fL (36.4-46.3); Red Blood Count 3.21 M/uL (4.63-6.08); White Blood Count 3.39 K/ul (4.8-10.8)
[2022-04-20 07:00] LABS: Albumin Globulin Ratio 0.7 (0.9-2); Albumin Level 2.3 gm/dl (3.4-5.0); BUN Creatinine Ratio 31.1 (10-20); Bilirubin,Total 2.4 mg/dl (0.2-1.0); Calcium 7.3 mg/dl (8.5-10.1); Creatinine Clr Calc Pharmacy 111.2 ml/min; Est GFR (Non-African American) 93.2 ml/min; Globulin 3.4 gm/dl (2.5-4.0); Magnesium 1.5 mg/dl (1.7-2.4); Potassium 3.3 mmol/L (3.5-5.1); Total Protein 5.7 gm/dl (6.0-8.3)
[2022-04-20 07:31] LABS: Basophils # (auto) 0.02 K/uL (0-0.2); Basophils % (auto) 0.6 %; Eosinophils # (auto) 0.16 K/uL (0-0.50); Eosinophils % (auto) 4.7 %; Immature Granulocytes # (auto) 0.01 K/uL (0.00-0.02); Immature Granulocytes % (auto) 0.3 %; Lymphocytes # (auto) 0.97 K/uL (1.2-3.4); Lymphocytes % (auto) 28.6 %; Monocytes # (auto) 0.61 K/uL (0.24-0.82); Neutrophils # (auto) 1.62 K/uL (1.4-6.5); Neutrophils % (auto) 47.8 %
[2022-04-20] MEDS: INSULIN ASPART PER UNIT SC SCH ×4 (08:12→22:29)
[2022-04-20] MEDS: buprenorphine HCL 8 MG SUBL SL SCH ×2 (08:17→22:25)
[2022-04-20] MEDS: PANTOprazole 40 MG TAB PO SCH ×2 (08:18→22:26)
[2022-04-20] MEDS: THIAMINE HCL 100 MG TAB PO SCH (08:18)
[2022-04-20] MEDS: LACTULOSE SYRUP 20 GM/30 ML UDC PO SCH ×3 (08:18→22:23)
[2022-04-20] MEDS: FOLIC ACID 1 MG TAB PO SCH (08:18)
[2022-04-20] MEDS: PROPRANOLOL HCL 10 MG TAB PO SCH ×2 (08:18→22:26)
[2022-04-20] MEDS: MAGNESIUM OXIDE 400 MG TAB PO SCH ×2 (08:18→22:25)
[2022-04-20] MEDS: ALFUZOSIN HCL 10 MG TAB PO SCH (08:18)
[2022-04-20] MEDS: ASPIRIN 81 MG ECTAB PO SCH (08:18)
[2022-04-20] MEDS: GABAPENTIN 250 MG/5 ML 470 ML BTL PO SCH ×3 (08:23→22:28)
[2022-04-20] MEDS ORDERED: LANTUS PER UNIT CHARGE SQ ONE ×2 (09:00→21:00)
--- NOTE | 2022-04-20 14:08 | Pharmacy Report ---
Pharmacy Glycemic Short Note 2 - Date of Service April 20, 2022 - Glycemic Short BSG Results (Last 24 hours): 04/19/22 04/19/22 04/20/22 16:24 20:31 06:24 Glucose 166 H POC Glucose 238 H 213 H 04/20/22 04/20/22 07:43 11:11 Glucose POC Glucose 171 H 176 H OUTPATIENT ANTIDIABETIC REGIMEN: * Lantus 80 units bid, humalog 30 units tidm ASSESSMENT: 04/20 * Patient received 39 units of insulin yesterday of which 15 were basal * Fasting blood glucose was 171, increased Lantus to 20 units this AM * Will do Lantus on a sliding scale tonight 0-5-10-15 * Tightened Novolog parameters as mealtime BSGs are above goal 04/19 * Patient received 30 units of insulin yesterday of which 12 were basal, diet advanced to T2DM * AM fasting BSG slightly elevated at 158, increased basal insulin slightly to 15 units QAM * Will consider adjusting breakfast time Novolog CF/CR due to elevated lunchtime BSGs tomorrow 04/17 * Diet advanced to full liquid from NPO * AM fasting within range (111 mg/dL), maintain lantus dose * Novolog parameters adjusted given low amount of insulin needed yesterday while NPO, will continue to monitor. 04/16 * 61 year old admitted with encephalopathy, potential drug overdose, uti. Pharmacy consulted to assist with glycemic management. Patient currently on very large amounts of insulin at home. A1c elevated as of 03/11 * Prior admission, patient's blood sugars had been low on admission - basal insulin held as patient also with N/V * Plan to start conservatively with basal insulin as patient NPO - He was started at 10 units Lantus bid. I may have scale for HS for 0-10 units based upon BSG PLAN FOR INPATIENT GLYCEMIC CONTROL: * Hold outpatient oral diabetes medications * Basal insulin * Lantus 20 units QAM, Lantus 0-5-10-15 units HS per sliding scale * Bolus insulin * NovoLog per scale ACHS or Q6hrs while NPO * Goal Range: Low 110 mg/dL - High 140 mg/dL * Correction Factor: 15 mg/dL/unit * Nutritional / Prandial insulin per carb ratio of 1 unit per 5 grams CHO consumed
--- NOTE | 2022-04-20 16:27 | Discharge Summary ---
Date of Service April 20, 2022 Admission HPI Per Admitting Provider This is a 61-year-old male with a history of cirrhosis, chronic hepatitis C, alcohol abuse, narcotic abuse on Suboxone, AAA, GERD, type 2 diabetes, COPD, ELINA, hypertension for syncope and altered mental status. History is provided mostly by [id number] and chart review given patient's significant AMS. Patient was reportedly found down in the hallway earlier this evening. He is currently on Suboxone t.i.d. from [facility], but is also on gabapentin. There was concern from his sister that he may have OD'd on both. EMS was called and he was given Narcan and reportedly woke up thereafter and was agitated. He was brought to [facility] for further care and w/u. Of note, patient was recently admitted on 02/21/2022 for worsening right upper quadrant pain. CT scan at that time demonstrated possible choledocholithiasis, underwent HIDA scan on day of discharge, which was negative. --- MEDICATIONS: Medications reviewed and include alfuzosin, aspirin, Suboxone 8 mg 3 times daily, Lasix twice daily as needed, gabapentin 800 mg 4 times daily, insulin 80 units twice daily, Humalog 30 units 3 times daily, ipratropiumalbuterol, lidocaine, losartan 100 mg daily, omeprazole, ondansetron. --- DATA REVIEW: Last TTE on 02/20 demonstrated normal left ventricular function with mild concentric hypertrophy, grade 1 diastolic dysfunction, mildly dilated left atrium. Urine culture 02/20/2022 demonstrating multidrug-resistant E. coli resistant to ampicillin, ciprofloxacin, levofloxacin, and Bactrim Urine culture 03/12/2021 similarly demonstrating multidrug-resistant E. coli to ampicillin, ciprofloxacin, levofloxacin and Bactrim. --- ED COURSE: In the ED, patient was found to be mildly hypertensive at 165/84 and tachycardic 102. Oxygen saturation and respiratory rate at 95% at room air and 15, respectively. Weight 117.2 kg from 109.5 kg on 02/21. He was afebrile. Admission labs demonstrate chronic normocytic anemia with hemoglobin 11.7, chronic thrombocytopenia at 32 (on 02/21 at 43). Serum sodium 129, potassium 2.9, chloride 96, BUN 27, creatinine 1.89 (at last discharge, 0.65), glucose 162, magnesium 1.5, total bilirubin 2.8, AST 86, ALT 42, ALP 120, ammonia 155, albumin 2.9, lipase 106.Urine was dark in appearance with turbid character. This demonstrated 2+ protein, 2+ blood, negative nitrates, negative bilirubin, 3+ leuk esterase, over 30 WBCs, and 4+ urine bacteria. Urine toxicology demonstrated positive urine benzodiazepines. Ethyl alcohol under 10. COVID- negative.Head CT negative.Chest x-ray demonstrating cardiomegaly and emphysema with pulmonary vascular congestion. He became combative during his ER course and was subsequently given Zyprexa. Discharge Data Allergies Allergy/AdvReac Type Severity Reaction Status Date / Time No Known Allergies Allergy Verified 04/15/22 19:42 Consultations 04/15/22 19:53 ED Decision to Admit Stat 04/19/22 10:32 Consult Psychiatry Routine Ordered Studies 04/15/22 18:18 CT head/brain wo con Stat 04/15/22 22:39 CT abd pelvis wo con Stat Hospital Course (1) Metabolic encephalopathy: This is a 61-year-old male with a history of cirrhosis, chronic hepatitis C, alcohol abuse, IVDU per chart review, OUD on Suboxone, AAA, GERD, type 2 diabetes, COPD, ELINA, hypertension for syncope and altered mental status which was responsive to Narcan administration in the field. On arrival here, he was found to be agitated with multiple electrolyte abnormalities, an RODRIGO, elevated LFTs, and hyperammonemia at 155. Metabolic/hepatic encephalopathy Toxic encephalopathy in setting of polypharm as well as presenting hepatic & metabolic encephalopathy - Multifactorial: Suspect most likely hepatic encephalopathy. Opiate/gabapentin overdose remains a possibility although he continues to deny this. Given drowsiness last night we will reduce his gabapentin dose to 200 mg 3 times daily continue his Subutex. - On arrival, found to be agitated but alert - did require Zyprexa x 1 in the ED, responded well - CT-H negative for acute processes / ABG with respiratory alkalosis on arrival - 7.49 / pCO2 32 / pO2 76 / pHCO3 24 - Procalcitonin minimally elevated, blood cultures negative at 48 hours, urine culture growing E. coli sensitive to ceftriaxone - Work-up and treatment for individual problems as below (2) Overdose: - Based on history and responding to Narcan, c/f Subutex overdose and ?possibly gabapentin - Discussed with poison control on admission - Patient denying overdose - appreciate psychiatry consult Will continue his gabapentin at 200 mg and Subutex as long as he does not remain drowsy. (3) Hepatic encephalopathy: - On arrival, found to be with level of 155 in setting of new AMS (at d/c in February, was in 60s) - Continue lactulose 20mg PO TID - will need to continue this on discharge. Aim for 4-5 bowel movements a day. (4) Hypoxia: -Appears more hypervolemic today. We will repeat chest x-ray to assess for need for restarting Lasix. Given just coming off IV fluids to help with RODRIGO will defer starting Lasix to tomorrow. (5) RODRIGO (acute kidney injury): Now resolved - On arrival BUN 27 / Cr 1.89 (eGFR 38, CrCl 54) from BUN 12 / Cr 0.65 on 02/21 - Hold Losartan (6) Urinary tract infection: - Patient was here approximately 1 mo ago for RUQ pain but left AMA. Had e/o cystitis and bacteruria at that time too with MDR-E. coli based on labs at that time - Historical info: - Urine culture 02/20/2022 demonstrating multidrug-resistant E. coli resistant to ampicillin, ciprofloxacin, levofloxacin, and Bactrim - Seen on 03/30/22 w/ outpatient urology for UTI-like symptoms - prescribed Augmentin, Alfuzosin - UA again showing signs of cystitis with 4+ bacteruria and >30 WBCs (10-20 epis) -E. coli on urine culture. Continue ceftriaxone 2g IV daily. PSA unremarkable. Procalcitonin already below 0.5 therefore recommend treatment course for simple cystitis of 3 days (completed 04/19) (7) Chronic hepatitis C with cirrhosis: Untreated HCV, present EtOH abuse, h/o IVDU - On arrival: Na 129 / Cr 1.89 / TBili 2.8 with DBili 1.1, AST 86, ALT 42, ALP 120, ammonia 155 ; APAP, salicylate, and EtOH negative ; lipase 106 - Known HCV+ cirrhosis that was being followed by [facility] [place] [facility] - however, reportedly has not completed or started treatment - Recently discharged for RUQ pain, possibly choledocholithiasis - though HIDA was negative. Left AMA. - Child Dick Class B / MELD 28 -- though likely skewed by active RODRIGO - Lactulose ongoing, as outlined above - Outpatient care will need coordinated prior to discharge (8) Electrolyte abnormality: Continue to monitor potassium and magnesium daily and will replace with IV/p.o. supplementation as necessary. (9) Hyponatremia: Hypovolemic hyponatremia Continue to monitor with normal saline in intravenous fluids (10) Opioid use disorder: - Responded to Narcan in the field, suggesting possible overdose however patient denies this. - On Suboxone 8mg t.i.d. as an outpatient --we will restart today (11) Alcohol use: Recent relapse although generally reports being sober for the last 2 years. Ethyl alcohol level negative on admission. Not at risk of alcohol withdrawal. Thiamine 200 mg IV 3 times daily for 3 days - will switch to PO 100mg PO tomorrow (12) COPD (chronic obstructive pulmonary disease): - No maintenance inhalers or PFTS available on chart - consider this at follow up - Lung exam without wheezing at this time - Albuterol PRN (13) HTN (hypertension): Continue to hold losartan. Suspect this needs to be discontinued on discharge. Started on propranolol 10 mg p.o. twice daily for esophageal varices. (14) Sleep apnea: - CPAP qHS if able to tolerate (15) Type 2 diabetes mellitus: - Last A1c at 9.8% in 02/2022 - Pharmacy glycemic consult appreciated - Vastly lower insulin outpatient requirement compared to inpatient with elevated HbA1c - Concerning for very poor diet versus noncompliance. 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 (16) Thrombocytopenia: - 32 on arrival - persistently dropping since 2020 - No signs of active bleeding. Monitor and trend while here - Cirrhosis management as above. (17) GERD (gastroesophageal reflux disease): Protonix switch to 40 mg p.o. twice daily, continue this (18) Hyperammonemia: Plan Code: Full PPX: SCDs, chemical prophylaxis deferred due to platelets less than 50 Diet: Heart healthy, type 2 diabetes, low-sodium Dispo: Stable for transfer to [facility] Discharge Plan Discharge Items Reason For Visit: AMS, HYPERAMMONEMIA Follow-up/Referrals: [facility] [Other] (Psychiatry appointment on May 04, 2022 @ 8:30 AM Please complete intake packet that will be sent via mail and bring to your appointment ) Bobby Leslie MD [Primary Care Provider] - Medications and DC Order Prescriptions: Discontinued losartan 100 mg tablet 100 mg PO DAILY No Action alfuzosin 10 mg tablet extended release 24 hr 10 mg PO DAILY Qty: 30 2RF Rx Instructions: administer after the same meal each day gabapentin 800 mg Tablet 800 mg PO QID insulin lispro [Humalog U-100 Insulin] 100 unit/mL Solution 30 unit SUBCUT TIDM insulin glargine [Lantus Solostar U-100 Insulin] 100 unit/mL (3 mL) Insulin Pen 80 unit SUBCUT BID omeprazole 20 mg capsule,delayed release(DR/EC) 20 mg PO BID furosemide 20 mg tablet 20 mg PO BID PRN (Reason: as directed) ondansetron HCl 4 mg tablet 4 mg PO BID PRN (Reason: Nausea And Vomiting) lidocaine 5 % ointment 1 applic topical QID PRN (Reason: Pain) Rx Instructions: apply to affected area ipratropium-albuterol 0.5 mg-3 mg(2.5 mg base)/3 mL solution for nebulization 3 ml INHALATION QID PRN (Reason: Shortness Of Breath Or Wheezing) aspirin [Chavo Low Dose Aspirin] 81 mg Tablet,Delayed Release (Dr/Ec) 81 mg PO DAILY buprenorphine HCl 8 mg tablet, sublingual 8 mg SUBLINGUAL TID Admission Data Admit Date/Time: 04/15/22 21:49 Attending Provider: Cristobal Pedraza Admit Provider: Lencho Torres Primary Care Provider: Bobby Leslie Other Providers: Sammy Shannon ; Delia Putnam ; Cathy Patel ; Kady Pierson ; Ketan Beyer [facility] ; [facility] Coding Diagnoses Metabolic encephalopathy G93.41 Overdose T50.901A Hepatic encephalopathy K76.82 Hypoxia R09.02 RODRIGO (acute kidney injury) N17.9 Urinary tract infection N39.0 Hematuria presence: without hematuria Urinary tract infection type: site unspecified Chronic hepatitis C with cirrhosis B18.2; K74.60 Electrolyte abnormality E87.8 Hyponatremia E87.1 Opioid use disorder F11.90 Alcohol use Z78.9 COPD (chronic obstructive pulmonary disease) J44.9 HTN (hypertension) I10 Sleep apnea G47.30 Type 2 diabetes mellitus E11.9 Thrombocytopenia D69.6 GERD (gastroesophageal reflux disease) K21.9 Hyperammonemia E72.20
[2022-04-20] MEDS ORDERED: POTASSIUM CHLORIDE CRTAB 20 MEQ TABCR PO STA (16:41)
[2022-04-20] MEDS: SPIRONOLACTONE 25 MG TAB PO SCH (17:10)
--- NOTE | 2022-04-20 19:56 | Hospitalist Progress Note ---
Date of Service April 20, 2022 Assessment & Plan (1) Metabolic encephalopathy: Plan: This is a 61-year-old male with a history of cirrhosis, chronic hepatitis C, alcohol abuse, IVDU per chart review, OUD on Suboxone, AAA, GERD, type 2 diabetes, COPD, ELINA, hypertension for syncope and altered mental status which was responsive to Narcan administration in the field. On arrival here, he was found to be agitated with multiple electrolyte abnormalities, an RODRIGO, elevated LFTs, and hyperammonemia at 155. Metabolic/hepatic encephalopathy Toxic encephalopathy in setting of polypharm as well as presenting hepatic & metabolic encephalopathy - Multifactorial: Suspect most likely hepatic encephalopathy. Opiate/gabapentin overdose remains a possibility although he continues to deny this. Given drowsiness last night we will reduce his gabapentin dose to 200 mg 3 times daily continue his Subutex. - On arrival, found to be agitated but alert - did require Zyprexa x 1 in the ED, responded well - CT-H negative for acute processes / ABG with respiratory alkalosis on arrival - 7.49 / pCO2 32 / pO2 76 / pHCO3 24 - Procalcitonin minimally elevated, blood cultures negative at 48 hours, urine culture growing E. coli sensitive to ceftriaxone - Work-up and treatment for individual problems as below Appears to have resolved. (2) Overdose: Plan: - Based on history and responding to Narcan, c/f Subutex overdose and ?possibly gabapentin - Discussed with poison control on admission - Patient denying overdose - appreciate psychiatry consult Will continue his gabapentin at 200 mg and Subutex as long as he does not remain drowsy. Not drowsy on 04/20 (3) Hepatic encephalopathy: Plan: - On arrival, found to be with level of 155 in setting of new AMS (at d/c in February, was in 60s) - Continue lactulose 20mg PO TID - will need to continue this on discharge. Aim for 4-5 bowel movements a day. (4) Hypoxia: Plan: -Appears more hypervolemic today. We will repeat chest x-ray to assess for need for restarting Lasix. Given just coming off IV fluids to help with RODRIGO will defer starting Lasix to tomorrow. (5) RODRIGO (acute kidney injury): Plan: Now resolved - On arrival BUN 27 / Cr 1.89 (eGFR 38, CrCl 54) from BUN 12 / Cr 0.65 on 02/21 - Hold Losartan will stop lasix and place on spironolactone (6) Urinary tract infection: Plan: - Patient was here approximately 1 mo ago for RUQ pain but left AMA. Had e/o cystitis and bacteruria at that time too with MDR-E. coli based on labs at that time - Historical info: - Urine culture 02/20/2022 demonstrating multidrug-resistant E. coli resistant to ampicillin, ciprofloxacin, levofloxacin, and Bactrim - Seen on 03/30/22 w/ outpatient urology for UTI-like symptoms - prescribed Augmentin, Alfuzosin - UA again showing signs of cystitis with 4+ bacteruria and >30 WBCs (10-20 epis) -E. coli on urine culture. Continue ceftriaxone 2g IV daily. PSA unremarkable. Procalcitonin already below 0.5 therefore recommend treatment course for simple cystitis of 3 days (completed 04/19) (7) Chronic hepatitis C with cirrhosis: Plan: Untreated HCV, present EtOH abuse, h/o IVDU - On arrival: Na 129 / Cr 1.89 / TBili 2.8 with DBili 1.1, AST 86, ALT 42, ALP 120, ammonia 155 ; APAP, salicylate, and EtOH negative ; lipase 106 - Known HCV+ cirrhosis that was being followed by [facility] - however, reportedly has not completed or started treatment - Recently discharged for RUQ pain, possibly choledocholithiasis - though HIDA was negative. Left AMA. - Child Dick Class B / MELD 28 -- though likely skewed by active RODRIGO - Lactulose ongoing, as outlined above - Outpatient care will need coordinated prior to discharge (8) Electrolyte abnormality: Plan: Continue to monitor potassium and magnesium daily and will replace with IV/p.o. supplementation as necessary. (9) Hyponatremia: Plan: Hypovolemic hyponatremia Continue to monitor with normal saline in intravenous fluids (10) Opioid use disorder: Plan: - Responded to Narcan in the field, suggesting possible overdose however patient denies this. - On Suboxone 8mg t.i.d. as an outpatient --we will restart today (11) Alcohol use: Plan: Recent relapse although generally reports being sober for the last 2 years. Ethyl alcohol level negative on admission. Not at risk of alcohol withdrawal. Thiamine 200 mg IV 3 times daily for 3 days - will switch to PO 100mg PO tomorrow (12) COPD (chronic obstructive pulmonary disease): Plan: - No maintenance inhalers or PFTS available on chart - consider this at follow up - Lung exam without wheezing at this time - Albuterol PRN (13) HTN (hypertension): Plan: Continue to hold losartan. Suspect this needs to be discontinued on discharge. Started on propranolol 10 mg p.o. twice daily for esophageal varices. (14) Sleep apnea: Plan: - CPAP qHS if able to tolerate (15) Type 2 diabetes mellitus: Plan: - Last A1c at 9.8% in 02/2022 - Pharmacy glycemic consult appreciated - Vastly lower insulin outpatient requirement compared to inpatient with elevated HbA1c - Concerning for very poor diet versus noncompliance. 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 (16) Thrombocytopenia: Plan: - 32 on arrival - persistently dropping since 2020 - No signs of active bleeding. Monitor and trend while here - Cirrhosis management as above. (17) GERD (gastroesophageal reflux disease): Plan: Protonix switch to 40 mg p.o. twice daily, continue this (18) Hyperammonemia: Plan Code: Full PPX: SCDs, chemical prophylaxis deferred due to platelets less than 50 Diet: Heart healthy, type 2 diabetes, low-sodium Dispo: Stable for transfer to [facility] Admission and Anticipated Discharge Date Admission Date: April 15, 2022 Subjective Patient reports no new symptoms. Review of Systems Review of Systems: All systems reviewed & are unremarkable except as noted in HPI & below Physical Exam Physical Exam: Constitutional: well developed; + not well nourished and no acute distress Respiratory: normal respiratory effort; no respiratory distress Auscultation: rales; no diminished lung sounds and no wheezes Cardiovascular: Rate/Rhythm: regular rate and regular rhythm Extremities: + pedal edema (1+ bilateral equal) Gastrointestinal (Abdomen): Inspection/Auscultation: normal bowel sounds; abdomen not distended Percussion/Palpation: abdomen soft; abdomen nontender, no guarding and abdomen not rigid Skin: no rashes, warm and dry Neurologic: moves all extremities and awake; not confused Psychiatric: A+Ox3, euthymic affect Genitourinary: no CVA tenderness Results & Data Results & Data ([facility]) Vital Signs (Past 12 Hours) Vital Signs Temp Pulse Pulse Pulse Pulse Pulse Resp 04/20/22 18:25 83 74 70 04/20/22 18:03 04/20/22 15:51 36.8 C 67 20 04/20/22 10:44 36.9 C 82 16 04/20/22 08:52 04/20/22 08:01 36.8 C 71 18 Resp Resp Resp BP Pulse Ox Pulse Ox Pulse Ox 04/20/22 18:25 20 16 16 90 92 04/20/22 18:03 97 04/20/22 15:51 111/66 96 04/20/22 10:44 94/54 L 95 04/20/22 08:52 04/20/22 08:01 108/71 94 Pulse Ox O2 Del Method O2 Flow Rate 04/20/22 18:25 94 04/20/22 18:03 Room Air, Nasal Cannula 1 04/20/22 15:51 Nasal Cannula 1 04/20/22 10:44 Nasal Cannula 1 04/20/22 08:52 Nasal Cannula 1 04/20/22 08:01 Room Air PG Care Time/CCT Total # of Minutes Spent Total Time Spent with Patient: Total time spent is greater than 50% in coordination of care (as documented) at patient's floor/unit and/or counseling patient: Coding Level of Care Code 26492 Subseq Hosp Care Lvl 3 Diagnoses Metabolic encephalopathy G93.41 Overdose T50.901A Hepatic encephalopathy K76.82 Hypoxia R09.02 RODRIGO (acute kidney injury) N17.9 Urinary tract infection N39.0 Hematuria presence: without hematuria Urinary tract infection type: site unspecified Chronic hepatitis C with cirrhosis B18.2; K74.60 Electrolyte abnormality E87.8 Hyponatremia E87.1 Opioid use disorder F11.90 Alcohol use Z78.9 COPD (chronic obstructive pulmonary disease) J44.9 HTN (hypertension) I10 Sleep apnea G47.30 Type 2 diabetes mellitus E11.9 Thrombocytopenia D69.6 GERD (gastroesophageal reflux disease) K21.9 Hyperammonemia E72.20 Time Spent (min) 35 (1) Urinary tract infection Hematuria presence: without hematuria Urinary tract infection type: site unspecified Qualified Code(s): N39.0 - Urinary tract infection, site not specified
[2022-04-21] MEDS: PANTOprazole 40 MG TAB PO SCH (08:16)
[2022-04-21] MEDS: PROPRANOLOL HCL 10 MG TAB PO SCH (08:16)
[2022-04-21] MEDS: MAGNESIUM OXIDE 400 MG TAB PO SCH (08:17)
[2022-04-21] MEDS: LACTULOSE SYRUP 20 GM/30 ML UDC PO SCH (08:17)
[2022-04-21] MEDS: ALFUZOSIN HCL 10 MG TAB PO SCH (08:17)
[2022-04-21] MEDS: SPIRONOLACTONE 25 MG TAB PO SCH (08:17)
[2022-04-21] MEDS: FOLIC ACID 1 MG TAB PO SCH (08:17)
[2022-04-21] MEDS: ASPIRIN 81 MG ECTAB PO SCH (08:17)
[2022-04-21] MEDS: THIAMINE HCL 100 MG TAB PO SCH (08:17)
[2022-04-21] MEDS: buprenorphine HCL 8 MG SUBL SL SCH (08:26)
[2022-04-21] MEDS: GABAPENTIN 250 MG/5 ML 470 ML BTL PO SCH (08:26)
[2022-04-21] MEDS: INSULIN ASPART PER UNIT SC SCH ×2 (08:39→13:12)
[2022-04-21] MEDS ORDERED: LANTUS PER UNIT CHARGE SQ SCH (09:45)
[2022-04-21 09:48] LABS: Hematocrit (blood only) 30.6 % (40.1-51.0); Hemoglobin 10.7 g/dl (14.0-18.0); Mean Corpuscular Hemoglobin 31.3 pg (25.0-34.0); Mean Corpuscular Volume 89.5 fL (80.0-100.0); Platelet Count 35 K/uL (130-400); RDW Coefficient of Variation 16.6 % (11.5-14.5); RDW Standard Deviation 54.3 fL (36.4-46.3); Red Blood Count 3.42 M/uL (4.63-6.08); White Blood Count 2.92 K/ul (4.8-10.8)
[2022-04-21 10:33] LABS: Albumin Globulin Ratio 0.7 (0.9-2); Albumin Level 2.5 gm/dl (3.4-5.0); BUN Creatinine Ratio 22.8 (10-20); Bilirubin,Total 2.4 mg/dl (0.2-1.0); Calcium 7.6 mg/dl (8.5-10.1); Creatinine Clr Calc Pharmacy 126.7 ml/min; Est GFR (African American) 113.9 ml/min; Est GFR (Non-African American) 98.3 ml/min; Globulin 3.7 gm/dl (2.5-4.0); Magnesium 1.2 mg/dl (1.7-2.4); Potassium 3.6 mmol/L (3.5-5.1); Total Protein 6.2 gm/dl (6.0-8.3)
--- NOTE | 2022-04-21 11:20 | Pharmacy Report ---
Pharmacy Glycemic Short Note 2 - Date of Service April 21, 2022 - Glycemic Short BSG Results (Last 24 hours): 04/20/22 04/20/22 04/20/22 11:11 16:42 20:43 Glucose POC Glucose 176 H 134 H 207 H 04/21/22 04/21/22 08:18 09:07 Glucose 160 H POC Glucose 157 H OUTPATIENT ANTIDIABETIC REGIMEN: * Lantus 80 units bid, humalog 30 units tidm ASSESSMENT: 04/21: * Patient received total of 60 units of insulin yesterday; basal 30 units + bolus 30 units. * BSGs yesterday were [phone] mg/dl. * Fasting BSG today was 157 mg/dl. Basal dosing increased to 25 units in AM and 15 units at HS. Patient was on much higher insulin doses at home. Plan to titrate up slowly as tolerated. 04/20 * Patient received 39 units of insulin yesterday of which 15 were basal * Fasting blood glucose was 171, increased Lantus to 20 units this AM * Will do Lantus on a sliding scale tonight 0-5-10-15 * Tightened Novolog parameters as mealtime BSGs are above goal 04/19 * Patient received 30 units of insulin yesterday of which 12 were basal, diet advanced to T2DM * AM fasting BSG slightly elevated at 158, increased basal insulin slightly to 15 units QAM * Will consider adjusting breakfast time Novolog CF/CR due to elevated lunchtime BSGs tomorrow 04/17 * Diet advanced to full liquid from NPO * AM fasting within range (111 mg/dL), maintain lantus dose * Novolog parameters adjusted given low amount of insulin needed yesterday while NPO, will continue to monitor. 04/16 * 61 year old admitted with encephalopathy, potential drug overdose, uti. Pharmacy consulted to assist with glycemic management. Patient currently on very large amounts of insulin at home. A1c elevated as of 03/11 * Prior admission, patient's blood sugars had been low on admission - basal i nsulin held as patient also with N/V * Plan to start conservatively with basal insulin as patient NPO - He was started at 10 units Lantus bid. I may have scale for HS for 0-10 units based upon BSG PLAN FOR INPATIENT GLYCEMIC CONTROL: * Hold outpatient oral diabetes medications * Basal insulin * Lantus 25 units in AM, 15 units HS * Bolus insulin * NovoLog per scale ACHS or Q6hrs while NPO * Goal Range: Low 110 mg/dL - High 140 mg/dL * Correction Factor: 15 mg/dL/unit * Nutritional / Prandial insulin per carb ratio of 1 unit per 5 grams CHO consumed
[2022-04-21] MEDS ORDERED: MAGNESIUM SULFATE / D5W 1 GM/100 ML BAG IV ONE (12:55)
[2022-04-21] MEDS ORDERED: LANTUS PER UNIT CHARGE SQ ONE (21:00)
--- NOTE | 2022-04-27 22:00 | Discharge Summary ---
Date of Service April 21, 2022 Principal Diagnosis metabolic encephalopathy Discharge Exam Constitutional: well developed; + not well nourished and no acute distress Respiratory: normal respiratory effort; no respiratory distress Auscultation: rales; no diminished lung sounds and no wheezes Cardiovascular: Rate/Rhythm: regular rate and regular rhythm Extremities: + pedal edema (1+ bilateral equal) Gastrointestinal (Abdomen): Inspection/Auscultation: normal bowel sounds; abdomen not distended Percussion/Palpation: abdomen soft; abdomen nontender, no guarding and abdomen not rigid Skin: no rashes, warm and dry Neurologic: moves all extremities and awake; not confused Psychiatric: A+Ox3, euthymic affect Genitourinary: no CVA tenderness Discharge Data Allergies Allergy/AdvReac Type Severity Reaction Status Date / Time No Known Allergies Allergy Verified 04/15/22 19:42 Consultations 04/15/22 19:53 ED Decision to Admit Stat 04/19/22 10:32 Consult Psychiatry Routine Ordered Studies 04/15/22 18:18 CT head/brain wo con Stat 04/15/22 22:39 CT abd pelvis wo con Stat Hospital Course (1) Metabolic encephalopathy: This is a 61-year-old male with a history of cirrhosis, chronic hepatitis C, alcohol abuse, IVDU per chart review, OUD on Suboxone, AAA, GERD, type 2 diabetes, COPD, ELINA, hypertension for syncope and altered mental status which was responsive to Narcan administration in the field. On arrival here, he was found to be agitated with multiple electrolyte abnormalities, an RODRIGO, elevated LFTs, and hyperammonemia at 155. Metabolic/hepatic encephalopathy Toxic encephalopathy in setting of polypharm as well as presenting hepatic & metabolic encephalopathy - Multifactorial: Suspect most likely hepatic encephalopathy. Opiate/gabapentin overdose remains a possibility although he continues to deny this. Given drowsiness last night we will reduce his gabapentin dose to 200 mg 3 times daily continue his Subutex. - On arrival, found to be agitated but alert - did require Zyprexa x 1 in the ED, responded well - CT-H negative for acute processes / ABG with respiratory alkalosis on arrival - 7.49 / pCO2 32 / pO2 76 / pHCO3 24 - Procalcitonin minimally elevated, blood cultures negative at 48 hours, urine culture growing E. coli sensitive to ceftriaxone - Work-up and treatment for individual problems as below Appears to have resolved. discharge instructions below (2) Overdose: - Based on history and responding to Narcan, c/f Subutex overdose and ?possibly gabapentin - Discussed with poison control on admission - Patient denying overdose - appreciate psychiatry consult Will continue his gabapentin at 200 mg and Subutex as long as he does not remain drowsy. Not drowsy on 04/20 (3) Hepatic encephalopathy: - On arrival, found to be with level of 155 in setting of new AMS (at d/c in February, was in 60s) - Continue lactulose 20mg PO TID - will need to continue this on discharge. Aim for 4-5 bowel movements a day. (4) Hypoxia: -Appears more hypervolemic today. We will repeat chest x-ray to assess for need for restarting Lasix. Given just coming off IV fluids to help with RODRIGO will defer starting Lasix to tomorrow. (5) RODRIGO (acute kidney injury): Now resolved - On arrival BUN 27 / Cr 1.89 (eGFR 38, CrCl 54) from BUN 12 / Cr 0.65 on 02/21 - Hold Losartan will stop lasix and place on spironolactone (6) Urinary tract infection: - Patient was here approximately 1 mo ago for RUQ pain but left AMA. Had e/o cystitis and bacteruria at that time too with MDR-E. coli based on labs at that time - Historical info: - Urine culture 02/20/2022 demonstrating multidrug-resistant E. coli resistant to ampicillin, ciprofloxacin, levofloxacin, and Bactrim - Seen on 03/30/22 w/ outpatient urology for UTI-like symptoms - prescribed Augmentin, Alfuzosin - UA again showing signs of cystitis with 4+ bacteruria and >30 WBCs (10-20 epis) -E. coli on urine culture. Continue ceftriaxone 2g IV daily. PSA unremarkable. Procalcitonin already below 0.5 therefore recommend treatment course for simple cystitis of 3 days (completed 04/19) (7) Chronic hepatitis C with cirrhosis: Untreated HCV, present EtOH abuse, h/o IVDU - On arrival: Na 129 / Cr 1.89 / TBili 2.8 with DBili 1.1, AST 86, ALT 42, ALP 120, ammonia 155 ; APAP, salicylate, and EtOH negative ; lipase 106 - Known HCV+ cirrhosis that was being followed by [facility] / [facility] - however, reportedly has not completed or started treatment - Recently discharged for RUQ pain, possibly choledocholithiasis - though HIDA was negative. Left AMA. - Child Dick Class B / MELD 28 -- though likely skewed by active RODRIGO - Lactulose ongoing, as outlined above - Outpatient care will need coordinated prior to discharge (8) Electrolyte abnormality: Continue to monitor potassium and magnesium daily and will replace with IV/p.o. supplementation as necessary. (9) Hyponatremia: Hypovolemic hyponatremia Continue to monitor with normal saline in intravenous fluids (10) Opioid use disorder: - Responded to Narcan in the field, suggesting possible overdose however patient denies this. - On Suboxone 8mg t.i.d. as an outpatient --we will restart today (11) Alcohol use: Recent relapse although generally reports being sober for the last 2 years. Ethyl alcohol level negative on admission. Not at risk of alcohol withdrawal. Thiamine 200 mg IV 3 times daily for 3 days - will switch to PO 100mg PO tomorrow (12) COPD (chronic obstructive pulmonary disease): - No maintenance inhalers or PFTS available on chart - consider this at follow up - Lung exam without wheezing at this time - Albuterol PRN (13) HTN (hypertension): Continue to hold losartan. Suspect this needs to be discontinued on discharge. Started on propranolol 10 mg p.o. twice daily for esophageal varices. (14) Sleep apnea: - CPAP qHS if able to tolerate (15) Type 2 diabetes mellitus: - Last A1c at 9.8% in 02/2022 - Pharmacy glycemic consult appreciated - Vastly lower insulin outpatient requirement compared to inpatient with elevated HbA1c - Concerning for very poor diet versus noncompliance. 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 (16) Thrombocytopenia: - 32 on arrival - persistently dropping since 2020 - No signs of active bleeding. Monitor and trend while here - Cirrhosis management as above. (17) GERD (gastroesophageal reflux disease): Protonix switch to 40 mg p.o. twice daily, continue this (18) Hyperammonemia: Plan Code: Full PPX: SCDs, chemical prophylaxis deferred due to platelets less than 50 Diet: Heart healthy, type 2 diabetes, low-sodium Total Time Total Time Spent Total Time Spent (In Minutes): 35 Discharge Plan Discharge Items Patient Disposition: Home - Self-Care Reason For Visit: AMS, HYPERAMMONEMIA Discharge Diagnosis: altered mental status Activity: Resume your previous activity Non-emergency contact: Primary Care Provider Call non-emergency contact if: you have any medication questions Follow-up/Referrals: [Other] - 05/04/22 8:30 am (Psychiatry appointment on May 04, 2022 @ 8:30 AM Please complete intake packet that will be sent via mail and bring to your appointment ) Bobby Leslie MD [Primary Care Provider] - Diet: Carb Consistent or DM2, Heart Healthy and Low Sodium (2gm) Addtl Attending Provider Instructions: Recommend switching furosemide to spironolactone. This will be given every day. Lactulose 20gr three times a day, recommended goal 2-3 bowel movements a day. we cut back on your gabapentin: 200 mg three times a day. You will also be on propranolol twice a day to prevent bleeding from your varices Continue to not drink any alcohol. Followup with PCP in 1-2 weeks. Pending Studies at Discharge: No Stand-Alone Forms: My [facility], Smoking Cessation Medications and DC Order Prescriptions: New thiamine HCl (vitamin B1) 100 mg Tablet 100 mg PO QAM Qty: 30 0RF gabapentin 250 mg/5 mL Solution 200 mg PO TID Qty: 60 0RF spironolactone 25 mg Tablet 50 mg PO QAM Qty: 30 0RF propranolol 10 mg Tablet 10 mg PO BID Qty: 60 0RF magnesium oxide 400 mg (241.3 mg magnesium) Tablet 400 mg PO TID Qty: 90 0RF folic acid 1 mg Tablet 1 mg PO QAM Qty: 30 0RF lactulose 20 gram/30 mL Solution 20 g PO TID Qty: 60 0RF Continued alfuzosin 10 mg tablet extended release 24 hr 10 mg PO DAILY Qty: 30 2RF Rx Instructions: administer after the same meal each day insulin lispro [Humalog U-100 Insulin] 100 unit/mL Solution 30 unit SUBCUT TIDM insulin glargine [Lantus Solostar U-100 Insulin] 100 unit/mL (3 mL) Insulin Pen 80 unit SUBCUT BID omeprazole 20 mg capsule,delayed release(DR/EC) 20 mg PO BID ondansetron HCl 4 mg tablet 4 mg PO BID PRN (Reason: Nausea And Vomiting) lidocaine 5 % ointment 1 applic topical QID PRN (Reason: Pain) Rx Instructions: apply to affected area ipratropium-albuterol 0.5 mg-3 mg(2.5 mg base)/3 mL solution for nebulization 3 ml INHALATION QID PRN (Reason: Shortness Of Breath Or Wheezing) aspirin [Chavo Low Dose Aspirin] 81 mg Tablet,Delayed Release (Dr/Ec) 81 mg PO DAILY buprenorphine HCl 8 mg tablet, sublingual 8 mg SUBLINGUAL TID Discontinued gabapentin 800 mg Tablet 800 mg PO QID furosemide 20 mg tablet 20 mg PO BID PRN (Reason: as directed) losartan 100 mg tablet 100 mg PO DAILY Discharge Orders: Discharge Order (Routine); Ordered 04/21/22 Ordered By: Cristobal Pedraza Admission Data Admit Date/Time: 04/15/22 21:49 Attending Provider: Cristobal Pedraza Admit Provider: Lencho Torres Primary Care Provider: Bobby Leslie Other Providers: Sammy Shannon ; Delia Putnam ; Cathy Patel ; Kady Pierson ; Kayleen,[facility] ; [facility] Other Interventions: Discharge Summary Assessment (RN) Last Done: 04/21/22 13:22 Coding Level of Care Code D/C DAY MANAGEMENT >30 MINS Diagnoses Metabolic encephalopathy G93.41 Overdose T50.901A Hepatic encephalopathy K76.82 Hypoxia R09.02 RODRIGO (acute kidney injury) N17.9 Urinary tract infection N39.0 Hematuria presence: without hematuria Urinary tract infection type: site unspecified Chronic hepatitis C with cirrhosis B18.2; K74.60 Electrolyte abnormality E87.8 Hyponatremia E87.1 Opioid use disorder F11.90 Alcohol use Z78.9 COPD (chronic obstructive pulmonary disease) J44.9 HTN (hypertension) I10 Sleep apnea G47.30 Type 2 diabetes mellitus E11.9 Thrombocytopenia D69.6 GERD (gastroesophageal reflux disease) K21.9 Hyperammonemia E72.20
== END 2022-04-21 14:43 | disposition home health service (06) | DRG 441 ==
LOC: ED 18:04 → SUATTDRO 21:49 → 2S 21:49 → 3W 04-21 07:02

== ENCOUNTER 2022-05-20 19:29 | Inpatient (IN) ==
[2022-05-20] MEDS ORDERED: SODIUM CHLORIDE 0.9% 500 ML IV ONE (19:41)
[2022-05-20] MEDS ORDERED: FOLIC ACID 1 MG in SYRINGE 9.8 ML IV STA (19:41)
[2022-05-20] MEDS ORDERED: THIAMINE HCL 100 MG in SYRINGE 9 ML IV STA (19:41)
--- NOTE | 2022-05-20 19:44 | Emergency Department Note ---
Impression & Plan Encephalopathy Admission ED Provider Note HPI: The patient is a 61-year-old male with longstanding history of alcohol abuse, hepatitis C with cirrhosis, presents the emergency department via EMS with altered mental status. Patient was apparently wandering in the halls of his apartment building naked and altered. Per EMS report they are familiar with this patient and he normally goes to [facility] however they are on divert and therefore he was brought here today. Patient reportedly was drinking mouthwash which is something that he does from time to time according to the EMS. On arrival the patient is alert but he is significantly altered, he is ras ble to provide me with any useful history. He is hemodynamically stable otherwise, airway is intact on arrival. ROS: -Neuro: Altered mental status *10 point review systems was conducted and is otherwise negative unless stated above *Outpatient medications and allergy history reviewed PE: General: Alert, confused, intoxicated appearing HEENT: Normocephalic, trachea midline Eyes: Extraocular eye movement is intact, no scleral erythema Pulmonary: Clear to auscultation bilaterally, no wheezing Cardio: Regular rate and rhythm GI: Abdomen is soft, distended, nontender : No suprapubic tenderness MSK: No evidence of trauma or malformation of the extremities, no edema Skin: No evidence of rash Neuro: Alert, no focal deficits Psychiatric: Confused but cooperative laboratory monitor: - An order was placed for continuous cardiac monitoring - Patient was noted to be in sinus rhythm with a rate of 85 EKG: Rate: 88 Rhythm: Normal sinus rhythm Intervals: QTC 505 ms, otherwise within normal limits ST changes: No ST elevation Time: 1948 CT HEAD: Comparison is made to a prior examination dated 04/15/22. No evidence for acute intracranial hemorrhage, midline shift, or mass-effect. No convincing evidence for acute transcortical infarct. Radiologist: Ricky Staples MD Study ready at 22:18 and initial results transmitted at 22:28 Interventions provided in ED: -IV fluid bolus, folate, thiamine Medical Decision Making: Patient presents emergency department with confusion, he arrives via EMS after he was found wandering in the hallways of his apartment in a confused state. He does have a history of hepatic encephalopathy. On arrival here to the ED the patient is hemodynamically stable, he is without any focal deficits. IV was established, lab work obtained, lab work shows baseline transaminitis with elevated bilirubin at 7.0, his abdomen is soft and nontender on my exam, he does have distention but his abdomen is not tense to palpation. Low suspicion for SBP at this time. Alcohol level is negative, will add on serum osmolality level. Ammonia level was sent and was canceled secondary to hemolysis, repeat level will be obtained. CT imaging of the head does not show any evidence of acute intracranial bleeding. COVID-19 testing is positive. Patient did require Haldol and Ativan while here in the ED as he attempted multiple times to get out of bed and was also pulling at his IV lines. He will require admission for his encephalopathy and further work-up. He was given a dose of lactulose prophylactically as my concern for hepatic encephalopathy with elevated ammonia level was high at this time. In addition, patient's potassium is critically low 2.4, he was ordered IV and oral repletion. Case was discussed with the on-call hospitalist, Dr. Carole braxton, and the patient was placed for admission in stable condition for further management. Diagnosis: 1. Acute encephalopathy 2. Hypokalemia, acute 3. Hyperbilirubinemia 4. History of cirrhosis 5. Delirium/agitation, acute Disposition: Admission Paul Richardson, DO Emergency Medicine Past Med/Surg History Medical History AAA (abdominal aortic aneurysm) per pt, last evaluated 6 mo ago [place] or [facility]? "around 5 cm" -->says was referred to vascular surgery but no appt as of yet Alcoholic cirrhosis Anxiety Bipolar disorder COPD (chronic obstructive pulmonary disease) no inh at present Depression DM type 2 (diabetes mellitus, type 2) IDDM Dysphagia Encephalopathy Fibromyalgia Gastroparesis GERD (gastroesophageal reflux disease) Hepatitis C dx 1 mo ago --> per pt, referred to [facility] in [place] for treatment but no appt as of yet History of DVT (deep vein thrombosis) "few years ago" LLE -- unk etiology -- per pt, no treatment at time of dx History of heroin abuse quit 2017 History of kidney stones History of migraine HTN (hypertension) Hyperlipidemia Hypertension Nocturnal hypoxia per pt, prescribed home O2 @ 2 LPM qHS and PRN daily in past but unable to obtain as of late r/t financial struggles. admits to using sister's oxygen at night when able. 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 Sleep apnea non compliant with CPAP Surgical History History of colonoscopy History of ear surgery as a child History of esophagogastroduodenoscopy (EGD) History of tonsillectomy History of tooth extraction S/P excisional debridement LLE Family History Other No family history of adverse response to anesthesia No significant medical problems Social History Smoking Status: Unknown if ever smoked Tobacco Type: Cigarettes Cigarettes Per Day: 6; Second Hand Exposure: Yes; Hx Alcohol Use: Yes Hx Substance Use: Yes Last Used Substance Other:: Currently on subutex. Patient states clean for 6 years. 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 Beliefs That Will Affect Care: None marital status: Single Current Living Situation: Family Current Living Situation Comment: with sister How many Children do You have: 0 Feels Safe at Home: Yes Assistive Devices: Cane Allergies Allergies Allergy/AdvReac Type Severity Reaction Status Date / Time No Known Allergies Allergy Verified 05/20/22 19:47 Home Meds Home Medications Medication Instructions Recorded Confirmed insulin glargine 100 unit/mL (3 80 unit subcut BID 08/20/20 05/20/22 mL) subcutaneous pen (Lantus Solostar U-100 Insulin) insulin lispro 100 unit/mL 30 unit subcut TIDM 08/20/20 05/20/22 subcutaneous solution (Humalog U-100 Insulin) aspirin 81 mg tablet,delayed 81 mg PO DAILY 11/25/20 05/20/22 release (Chavo Low Dose Aspirin) omeprazole 20 mg capsule,delayed 20 mg PO BID 06/01/21 05/20/22 release ipratropium 0.5 mg-albuterol 3 mg 3 ml inhalation QID PRN Shortness 12/27/21 05/20/22 (2.5 mg base)/3 mL nebulization Of Breath Or Wheezing soln lidocaine 5 % topical ointment 1 applic topical QID PRN Pain 12/27/21 05/20/22 ondansetron HCl 4 mg tablet 4 mg PO BID PRN Nausea And Vomiting 12/27/21 05/20/22 buprenorphine HCl 8 mg sublingual 8 mg sublingual TID 03/30/22 05/20/22 tablet Previous Rx's Medication Instructions Recorded alfuzosin 10 mg tablet,extended 10 mg PO DAILY #30 tabs 03/30/22 release 24 hr folic acid 1 mg tablet 1 mg PO QAM #30 tabs 04/21/22 gabapentin 250 mg/5 mL oral 200 mg (4 mL) PO TID #60 mL 04/21/22 solution lactulose 20 gram/30 mL oral 20 g (30 mL) PO TID #60 mL 04/21/22 solution magnesium oxide 400 mg (241.3 mg 400 mg PO TID #90 tabs 04/21/22 magnesium) tablet propranolol 10 mg tablet 10 mg PO BID #60 tabs 04/21/22 spironolactone 25 mg tablet 50 mg PO QAM #30 tabs 04/21/22 thiamine HCl (vitamin B1) 100 mg 100 mg PO QAM #30 tabs 04/21/22 tablet Results & Data (ED) Vital Signs Vital Signs - 24 hr 05/20/22 19:37 05/20/22 19:38 05/20/22 20:00 Temperature 37.2 C Temperature Source Oral Pulse Rate 89 93 H 87 Pulse Rate from SpO2 Sensor 93 H 87 Respiratory Rate 16 17 15 Respiratory Effort / Characteristics Non-Labored Spontaneous Respiratory Depth Normal Blood Pressure 132/91 Blood Pressure Mean 104 Pulse Oximetry 94 96 94 Oxygen Delivery Method Nasal Cannula Oxygen Flow Rate 2 Sepsis Recent Fever Within 48 Hours No Sepsis New/Unexplained Change in Mental Status Yes Sepsis Action Taken by Nursing No Action Required 05/20/22 20:30 05/20/22 21:00 05/20/22 21:30 Temperature Temperature Source Pulse Rate 92 H 93 H 96 H Pulse Rate from SpO2 Sensor 93 H 96 H 101 H Respiratory Rate 20 14 19 Respiratory Effort / Characteristics Respiratory Depth Blood Pressure Blood Pressure Mean Pulse Oximetry 96 100 92 Oxygen Delivery Method Nasal Cannula Oxygen Flow Rate 3 Sepsis Recent Fever Within 48 Hours Sepsis New/Unexplained Change in Mental Status Sepsis Action Taken by Nursing Laboratory Data Result diagrams: 05/20/22 20:04 05/20/22 20:04 Lab Results 05/20/22 05/20/22 05/20/22 Range/Units 20:04 20:04 20:04 WBC 3.22 L (4.8-10.8) K/ul RBC 3.38 L (4.63-6.08) M/uL Hgb 11.0 L (14.0-18.0) g/dl Hct 30.4 L (40.1-51.0) % MCV 89.9 (80.0-100.0) fL MCH 32.5 (25.0-34.0) pg MCHC 36.2 H (32.0-36.0) g/dL RDW Std Deviation 59.7 H (36.4-46.3) fL RDW Coeff of Nabeel 19.1 H (11.5-14.5) % Plt Count 32 L (130-400) K/uL MPV 12.6 H (9.4-12.4) fL Immature Gran % (Auto) 0.3 % Neut % (Auto) 64.7 % Lymph % (Auto) 20.8 % [place] % (Auto) 9.3 % Eos % (Auto) 4.0 % Baso % (Auto) 0.9 % Neut # (Auto) 2.08 (1.4-6.5) K/uL Lymph # (Auto) 0.67 L (1.2-3.4) K/uL [place] # (Auto) 0.30 (0.24-0.82) K/uL Eos # (Auto) 0.13 (0-0.50) K/uL Baso # (Auto) 0.03 (0-0.2) K/uL Immature Gran # (Auto) 0.01 (0.00-0.02) K/uL Polychromasia 1+ Echinocytes 1+ Sodium 139 (136-145) mmol/L Potassium 2.4 L* (3.5-5.1) mmol/L Chloride 99 (98-107) mmol/L Carbon Dioxide 30 (21-32) mmol/L Anion Gap 10 (3-11) BUN 17 (6-23) mg/dl Creatinine 1.48 H (0.6-1.4) mg/dl Est Cr Clr Drug Dosing 69.1 ml/min Est GFR ( Amer) 59.2 ml/min Est GFR (Non-Af Amer) 51.1 ml/min BUN/Creatinine Ratio 11.5 (10-20) Glucose 73 (70-99(Fasting)) mg/dl Calcium 7.5 L (8.5-10.1) mg/dl Total Bilirubin 7.0 H (0.2-1.0) mg/dl AST 282 H (13-39) U/L ALT 56 H (7-52) U/L Alkaline Phosphatase 131 H (34-104) U/L Ammonia Troponin I High Sens 20.0 (0-20) pg/ml Total Protein 7.1 (6.0-8.3) gm/dl Albumin 2.8 L (3.4-5.0) gm/dl Globulin 4.3 H (2.5-4.0) gm/dl Albumin/Globulin Ratio 0.7 L (0.9-2) Ethyl Alcohol mg/dL < 10.0 (<10.0) mg/dl SARS-CoV-2, RNA, NAAT (NEGATIVE) 05/20/22 05/20/22 Range/Units 20:53 22:30 WBC (4.8-10.8) K/ul RBC (4.63-6.08) M/uL Hgb (14.0-18.0) g/dl Hct (40.1-51.0) % MCV (80.0-100.0) fL MCH (25.0-34.0) pg MCHC (32.0-36.0) g/dL RDW Std Deviation (36.4-46.3) fL RDW Coeff of Nabeel (11.5-14.5) % Plt Count (130-400) K/uL MPV (9.4-12.4) fL Immature Gran % (Auto) % Neut % (Auto) % Lymph % (Auto) % [place] % (Auto) % Eos % (Auto) % Baso % (Auto) % Neut # (Auto) (1.4-6.5) K/uL Lymph # (Auto) (1.2-3.4) K/uL [place] # (Auto) (0.24-0.82) K/uL Eos # (Auto) (0-0.50) K/uL Baso # (Auto) (0-0.2) K/uL Immature Gran # (Auto) (0.00-0.02) K/uL Polychromasia Echinocytes Sodium (136-145) mmol/L Potassium (3.5-5.1) mmol/L Chloride (98-107) mmol/L Carbon Dioxide (21-32) mmol/L Anion Gap (3-11) BUN (6-23) mg/dl Creatinine (0.6-1.4) mg/dl Est Cr Clr Drug Dosing ml/min Est GFR ( Amer) ml/min Est GFR (Non-Af Amer) ml/min BUN/Creatinine Ratio (10-20) Glucose (70-99(Fasting)) mg/dl Calcium (8.5-10.1) mg/dl Total Bilirubin (0.2-1.0) mg/dl AST (13-39) U/L ALT (7-52) U/L Alkaline Phosphatase (34-104) U/L Ammonia Cancelled Troponin I High Sens (0-20) pg/ml Total Protein (6.0-8.3) gm/dl Albumin (3.4-5.0) gm/dl Globulin (2.5-4.0) gm/dl Albumin/Globulin Ratio (0.9-2) Ethyl Alcohol mg/dL (<10.0) mg/dl SARS-CoV-2, RNA, NAAT POSITIVE A* (NEGATIVE) Administered Medications Potassium Chloride (K Alejandro / Wtr) 10 meq in 100 mls @ 100 mls/hr IV Q1H [facility]; Protocol Stop: 05/20/22 23:44 Last Admin: 05/20/22 22:24 Dose: 100 mls/hr Documented By: FRANCA Discontinued Medications Haloperidol Lactate (Haloperidol Lactate 5 Mg/Ml 1 Ml Vial) 5 mg IV NOW STA Stop: 05/20/22 20:36 Last Admin: 05/20/22 20:39 Dose: 5 mg Documented By: FRANCA Haloperidol Lactate (Haloperidol Lactate 5 Mg/Ml 1 Ml Vial) 5 mg IV NOW STA Stop: 05/20/22 21:25 Last Admin: 05/20/22 21:40 Dose: 5 mg Documented By: BS Sodium Chloride (Nss) 500 mls @ 999 mls/hr IV .Q31M ONE Stop: 05/20/22 20:11 Last Infusion: 05/20/22 21:09 Dose: 0 mls/hr Documented By: Admin: 05/20/22 20:25 Dose: 999 mls/hr Documented By: FRANCA Thiamine HCl 100 mg/ Syringe 10 mls @ 2 mls/min IV NOW STA Stop: 05/20/22 19:45 Last Admin: 05/20/22 20:10 Dose: 2 mls/min Documented By: FRANCA Folic Acid 1 mg/ Syringe 10 mls @ 5 mls/min IV NOW STA Stop: 05/20/22 19:42 Last Admin: 05/20/22 21:46 Dose: 5 mls/min Documented By: FRANCA Lorazepam (Lorazepam 2 Mg/1 Ml Vial) 1 mg IV NOW STA Stop: 05/20/22 20:36 Last Admin: 05/20/22 20:39 Dose: 1 mg Documented By: FRANCA Lorazepam (Lorazepam 2 Mg/1 Ml Vial) 1 mg IV NOW STA Stop: 05/20/22 21:25 Last Admin: 05/20/22 21:44 Dose: 1 mg Documented By: FRANCA Discharge Plan Visit Data Chief Complaint: Altered Mental Status Stated Complaint: Altered Mental Status ED Provider: Paul Richardson Discharge Problem: Encephalopathy Patient Disposition: Admitted As Inpatient Forms Stand Alone Forms: [facility] Prescriptions Prescriptions: No Action alfuzosin 10 mg tablet extended release 24 hr 10 mg PO DAILY Qty: 30 2RF Rx Instructions: administer after the same meal each day insulin lispro [Humalog U-100 Insulin] 100 unit/mL Solution 30 unit SUBCUT TIDM insulin glargine [Lantus Solostar U-100 Insulin] 100 unit/mL (3 mL) Insulin Pen 80 unit SUBCUT BID omeprazole 20 mg capsule,delayed release(DR/EC) 20 mg PO BID ondansetron HCl 4 mg tablet 4 mg PO BID PRN (Reason: Nausea And Vomiting) lidocaine 5 % ointment 1 applic topical QID PRN (Reason: Pain) Rx Instructions: apply to affected area ipratropium-albuterol 0.5 mg-3 mg(2.5 mg base)/3 mL solution for nebulization 3 ml INHALATION QID PRN (Reason: Shortness Of Breath Or Wheezing) aspirin [Chavo Low Dose Aspirin] 81 mg Tablet,Delayed Release (Dr/Ec) 81 mg PO DAILY buprenorphine HCl 8 mg tablet, sublingual 8 mg SUBLINGUAL TID thiamine HCl (vitamin B1) 100 mg Tablet 100 mg PO QAM Qty: 30 0RF gabapentin 250 mg/5 mL Solution 200 mg PO TID Qty: 60 0RF spironolactone 25 mg Tablet 50 mg PO QAM Qty: 30 0RF propranolol 10 mg Tablet 10 mg PO BID Qty: 60 0RF magnesium oxide 400 mg (241.3 mg magnesium) Tablet 400 mg PO TID Qty: 90 0RF folic acid 1 mg Tablet 1 mg PO QAM Qty: 30 0RF lactulose 20 gram/30 mL Solution 20 g PO TID Qty: 60 0RF Referrals Referrals: Bobby Leslie MD [Primary Care Provider] -
[2022-05-20] MEDS ORDERED: LORazepam 2 MG/1 ML VIAL IV STA ×2 (20:35→21:24)
[2022-05-20] MEDS ORDERED: HALOPERIDOL LACTATE 5 MG/ML 1 ML VIAL IV STA ×2 (20:35→21:24)
[2022-05-20 21:04] LABS: Basophils # (auto) 0.03 K/uL (0-0.2); Basophils % (auto) 0.9 %; Eosinophils # (auto) 0.13 K/uL (0-0.50); Hematocrit (blood only) 30.4 % (40.1-51.0); Immature Granulocytes # (auto) 0.01 K/uL (0.00-0.02); Immature Granulocytes % (auto) 0.3 %; Lymphocytes # (auto) 0.67 K/uL (1.2-3.4); Lymphocytes % (auto) 20.8 %; Mean Platelet Volume 12.6 fL (9.4-12.4); Monocytes % (auto) 9.3 %; Neutrophils # (auto) 2.08 K/uL (1.4-6.5); Neutrophils % (auto) 64.7 %; Platelet Count 32 K/uL (130-400); White Blood Count 3.22 K/ul (4.8-10.8)
[2022-05-20 21:24] LABS: Albumin Globulin Ratio 0.7 (0.9-2); Albumin Level 2.8 gm/dl (3.4-5.0); BUN Creatinine Ratio 11.5 (10-20); Calcium 7.5 mg/dl (8.5-10.1); Creatinine Clr Calc Pharmacy 69.1 ml/min; Est GFR (African American) 59.2 ml/min; Est GFR (Non-African American) 51.1 ml/min; Globulin 4.3 gm/dl (2.5-4.0); Potassium 2.4 mmol/L (3.5-5.1); Total Protein 7.1 gm/dl (6.0-8.3)
[2022-05-20 21:34] LABS: Echinocytes 1+; Mean Corpuscular Hemoglobin 32.5 pg (25.0-34.0); Mean Corpuscular Hgb Conc 36.2 g/dL (32.0-36.0); Mean Corpuscular Volume 89.9 fL (80.0-100.0); Polychromasia 1+; RDW Coefficient of Variation 19.1 % (11.5-14.5); RDW Standard Deviation 59.7 fL (36.4-46.3); Red Blood Count 3.38 M/uL (4.63-6.08)
[2022-05-20] MEDS ORDERED: POTASSIUM CHLORIDE PWD 20 MEQ PACK PO ONE (21:45)
[2022-05-20] MEDS: POTASSIUM CHLORIDE / WTR 10 MEQ/100 ML PLCT IV SCH (22:24)
[2022-05-20] MEDS ORDERED: LACTULOSE SYRUP 20 GM/30 ML UDC PO ONE (22:40)
--- NOTE | 2022-05-20 23:19 | History & Physical Report ---
Date of Service May 20, 2022 Assessment & Plan (1) Hepatic encephalopathy: Plan: Completely disoriented and aggressive on presentation, requiring Haldol x2 and Ativan x2. Ammonia 116 --> Hepatic encephalopathy. - s/p Lactulose 20gm PO in ED - continue with 20gm PO TID and aim for 4-5 BMs per day - check ammonia in AM - consult GI - appreciate recs - NPO for now (besides meds and in particular lactulose) given significantly altered (2) Acute hepatitis: Plan: AST 282/ALT 56/TBili 7.0/INR 2.8/PT 28.1, significantly elevated in comparison to previous LFTs earlier this month. BAL negative on admission but patient reportedly has a significant alcohol abuse history. Suspect alcoholic hepatitis. - check CT A/P as stated above - check DBili - Maddrey's discriminant score is 81.1 - start Prednisolone 40mg PO daily - GI consulted as stated above (3) Alcoholic cirrhosis of liver: Plan: Chronic diagnosis, with high possibility that patient is still using alcohol although current history is limited (BAL negative on presentation). Previously MELD was 28 in 03/2022 (likely was falsely elevated due to RODRIGO at the time). Currently MELD score 27. - GI consulted as stated above - continue home Propranolol and Spironolactone - trend MELD labs daily - patient may need to be transferred to tertiary care center if continues to decompensate (4) Abdominal distension: Plan: Reportedly has been present on previous admissions, with previous CT scans angelo wing ascites in this patient with known cirrhosis. No abdominal pain on exam, and patient does not apear toxic, although exam is limited due to patient's AMS. - check CT A/P w/ IV contrast - check UDS - consider diagnostic paracentesis if sepsis and/or abdominal pain develops (5) Lower extremity edema: Plan: Significant bilateral LE pitting edema. Likely due to hepatic congestion in setting of cirrhosis/hepatitis. Patient uses 2L supplemental O2 chronically without increased requirement. Lungs clear on exam. Do not suspect pulmonary edema. - trend clinically - consider Lasix if respiratory status worsens - defer to primary team/GI - strict I/Os (robertson placed in ED), daily weights (6) RODRIGO (acute kidney injury): Plan: Cr 1.48, baseline 0.8 - 1.0. Suspect mild pre-renal injury in context of above. - s/p NSS 500cc bolus in ED, and Cr improved to 1.19 - check BMP again in AM (7) Hypokalemia: Plan: K 2.4, EKG with chronic QTc elevation at 505ms but no other abnormalities. - s/p 2 k-riders and 40mEq kcl in ED, with minor improvement to 2.6 - give k- rider x4 now - check BMP again in AM (8) Hypomagnesemia: Plan: Mg 1.0. Replete with Mg sulfate 6gm. Trend closely. (9) Alcohol use: Plan: BAL negative here, but with significant past alcohol abuse history. Was agitated on presentation and is now s/p Haldol 10mg and Ativan 2mg. Currently calm without symptoms of withdrawal. - AWSS protocol with PRN Ativan - s/p Thiamine/Folate IV in ED - continue with home Thiamine/Folate PO supplementation - encourage cessation (10) Pancytopenia: Plan: WBC 3.22/Hgb 11/plts 32 - at chronic baseline. No signs active bleeding. Likely due to alcohol abuse and cirrhosis. - trend daily - avoid DVT ppx due to plts <50 (11) COVID-19: Plan: Reportedly positive 8 days ago, and again positive in ED today. Unable to obtain history but patient is on chronic 2L supplemental O2, lungs are clear and he does not appear to be symptomatic. - maintain COVID-19 precautions for now - no Steroids/Remdesivir (12) Hepatitis C: Plan: Reportedly was recently diagnosed and patient was scheduled to see [facility] for HepC treatment but had not seen them yet. - defer to GI (13) COPD (chronic obstructive pulmonary disease): Plan: Reportedly history of this, although not on home meds. Chronically on 2L nasal cannula at home and without extra requirements here. - PRN Duonebs - continue supplemental O2 to maintain sats >90% - consider PRN Duonebs +/- LAMA on discharge - per primary team (14) Opioid use disorder: Plan: Continue home Buprenorphine (15) Type 2 diabetes mellitus: Plan: A1c 9.8 in 02/2022. - half-dose Lantus (40 units BID), and Q6H checks, while NPO - SSI ordered (16) GERD (gastroesophageal reflux disease): Plan: Protonix per hospital formulary Plan FEN/GI: NPO DVT Prophylaxis: SCDs, chemoppx contraindicated as plts <50 Code Status: full code Disposition: PCU History of Present Illness Chief Complaint: altered mental status Primary Care Provider: Bobby Leslie MD Chuck Gonzalez is a 61yo male with PMHx significant for cirrhosis, chronic hepatitis C, alcohol abuse, IV drug abuse, OUD on Suboxone, AAA, GERD, T2DM (A1c 9.8 in 02/2022), COPD (on 2L O2 chronically at home), ELINA, and HTN. He presented to [facility] ED on 05/20 for AMS. He was reportedly walking naked around the halls of his apartment building, covered in feces. Reportedly tested positive for COVID- 19 8 days ago. Remainder of history limited due to AMS. He was severely agitated in ED requiring Haldol/Ativan. Patient was recently admitted here from 04/15 - 04/20 for multifactorial encephalopathy 2/2 to hepatic encephalopathy and ?opiate/gabapentin OD. In the ED the patient was afebrile and hemodynamically stable on 2-3L/min nasal cannula. Labs significant for WBC 3.22/Hgb 11/plts 32 (all chronic baseline). K 2.4 (from 3.6 on 04/21), Cr 1.48 (baseline 0.8-1). TBili 7 (up from 2.4 on 04/21), AST 282/ALT 56 (up from 75/31 on 04/21), ALP 131 (up from 74 on 04/21). NH3 116 (up from 94 on 04/19), Albumin 2.8. EKG NSR 88bpm with QTc 505. BAL negative. COVID-[address] head w/o contrast without acute abnormalities. In ED patient was given Lactulose 20gm PO x1, Ativan 1mg IV x2, Haldol 5mg IV x2, k-rider x2, kcl 40mEq PO x1, thiamine 100mg IV x1, and Folate 1mg IV x1. Also received NSS 500cc bolus. Allergies Allergy/AdvReac Type Severity Reaction Status Date / Time No Known Allergies Allergy Verified 05/20/22 19:47 Home Medications Medication Instructions Recorded Confirmed Type insulin glargine 100 unit/mL (3 80 unit subcut BID 08/20/20 05/20/22 History mL) subcutaneous pen (Lantus Solostar U-100 Insulin) insulin lispro 100 unit/mL 30 unit subcut TIDM 08/20/20 05/20/22 History subcutaneous solution (Humalog U-100 Insulin) aspirin 81 mg tablet,delayed 81 mg PO DAILY 11/25/20 05/20/22 History release (Chavo Low Dose Aspirin) omeprazole 20 mg capsule,delayed 20 mg PO BID 06/01/21 05/20/22 History release ipratropium 0.5 mg-albuterol 3 mg 3 ml inhalation QID PRN Shortness 12/27/21 05/20/22 History (2.5 mg base)/3 mL nebulization Of Breath Or Wheezing soln lidocaine 5 % topical ointment 1 applic topical QID PRN Pain 12/27/21 05/20/22 History ondansetron HCl 4 mg tablet 4 mg PO BID PRN Nausea And Vomiting 12/27/21 05/20/22 History alfuzosin 10 mg tablet,extended 10 mg PO DAILY #30 tabs 03/30/22 05/20/22 Rx release 24 hr buprenorphine HCl 8 mg sublingual 8 mg sublingual TID 03/30/22 05/20/22 History tablet folic acid 1 mg tablet 1 mg PO QAM #30 tabs 04/21/22 05/20/22 Rx gabapentin 250 mg/5 mL oral 200 mg (4 mL) PO TID #60 mL 04/21/22 05/20/22 Rx solution lactulose 20 gram/30 mL oral 20 g (30 mL) PO TID #60 mL 04/21/22 05/20/22 Rx solution magnesium oxide 400 mg (241.3 mg 400 mg PO TID #90 tabs 04/21/22 05/20/22 Rx magnesium) tablet propranolol 10 mg tablet 10 mg PO BID #60 tabs 04/21/22 05/20/22 Rx spironolactone 25 mg tablet 50 mg PO QAM #30 tabs 04/21/22 05/20/22 Rx thiamine HCl (vitamin B1) 100 mg 100 mg PO QAM #30 tabs 04/21/22 05/20/22 Rx tablet Past Med/Surg History Medical History (Updated 05/21/22 @ 00:34 by Rocky Forrest MD) AAA (abdominal aortic aneurysm) per pt, last evaluated 6 mo ago [facility]? "around 5 cm" -->says was referred to vascular surgery but no appt as of yet Alcoholic cirrhosis Anxiety Bipolar disorder COPD (chronic obstructive pulmonary disease) no inh at present Depression DM type 2 (diabetes mellitus, type 2) IDDM Dysphagia Encephalopathy Fibromyalgia Gastroparesis GERD (gastroesophageal reflux disease) Hepatitis C dx 1 mo ago --> per pt, referred to [facility] in [place] for treatment but no appt as of yet History of DVT (deep vein thrombosis) "few years ago" LLE -- unk etiology -- per pt, no treatment at time of dx History of heroin abuse quit 2017 History of kidney stones History of migraine HTN (hypertension) Hyperlipidemia Hypertension Nocturnal hypoxia per pt, prescribed home O2 @ 2 LPM qHS and PRN daily in past but unable to obtain as of late r/t financial struggles. admits to using sister's oxygen at night when able. 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 Sleep apnea non compliant with CPAP Surgical History History of colonoscopy History of ear surgery as a child History of esophagogastroduodenoscopy (EGD) History of tonsillectomy History of tooth extraction S/P excisional debridement LLE Family History Other No family history of adverse response to anesthesia No significant medical problems Social History Smoking Status: Current every day smoker Tobacco Type: Cigarettes Cigarettes Per Day: 6; Second Hand Exposure: Yes; Hx Alcohol Use: Yes Alcohol type: other Hx Substance Use: Yes Last Used Substance: Unknown Last Used Substance Other:: Currently on subutex. Patient states clean for 6 years. Substance Use Type Other:: last used meth 2017 Preferred Language: [place] Communication Ability: Impaired Web Publisher Required: No Beliefs That Will Affect Care: None marital status: Single Current Living Situation: Family Current Living Situation Comment: unknown How many Children do You have: 0 Feels Safe at Home: Declines to Answer Assistive Devices: Denture - Upper, Denture - Lower, Glasses and Oxygen - Continuous Review of Systems Review of Systems: All systems reviewed & are unremarkable except as noted in HPI & below Physical Exam Physical Exam: General: Not alert and oriented. Cooperative. NAD. HEENT: Atraumatic, normocephalic. Pulm: CTAB A&P. -wheezes, -rales, -rhonchi. Symmetrical chest rise. No increase work of breathing. No respiratory distress. Cardiac: RRR, -mrg. Radial pulses intact and symmetrical. 3+ pitting edema bilaterally to knees. No JVD. Abdominal: moderately distended with +fluid wave and hepatomegaly, non-tender although difficult exam in this sense due to AMS, NA BS x 4 Skin: warm, dry, no rash Results & Data Results & Data ([facility]) Vital Signs (Past 12 Hours) Vital Signs Temp Pulse Resp BP Pulse Ox O2 Del Method O2 Flow Rate 05/20/22 21:30 96 H 19 92 Nasal Cannula 3 05/20/22 21:00 93 H 14 100 05/20/22 20:30 92 H 20 96 05/20/22 20:00 87 15 94 05/20/22 19:38 93 H 17 96 05/20/22 19:37 37.2 C 89 16 132/91 94 Nasal Cannula 2 Supervising Physician Co-Signing Physician Notes Patient seen and examined, chart reviewed, case discussed with Dr. Forrest at the time of admission and I agree with the assessment and plan as documented above. In brief, patient is a 61yo male with history of liver cirrhosis, chronic HCV and ongoing EtOH abuse. Patient brought in with acute toxic encephalopathy - confusion - walking around naked in the halls of his apartment building covered in stool. Agitated and altered in the ER. Was unable to provide history or comply with exam. He was administered Ativan and placed in restraints. On exam he is resting, does not answer questions or participate in exam +Jaundice and icterus +S1/S2, regular, no m/r/g Lungs CTA Abd - +BS, soft, NT, +ascitic fluid wave Ext - +edema Labs and images reviewed. There is worsening of his INR from 1.9 --> 2.8, PTT from 34.5 --> 38 and PT from 19.7 --> 28.2 Worsenign of Tbili from 2.4 --> 7 Na is stable. Hypokalemia to be repleted. Mg is low at 1 Assessment/plan - 61yo male with history of liver cirrhosis, EtOH abuse and chronic HCV presents with acute decompensated cirrhosis and hepatic encephalopathy -Lactulose TID, monitor ammonia level -Prednisolone initiated for MDF score of 81 -Continue Propranolol and Spironolactone -Consider diagnostic/therapeutic paracentesis -Monitor renal function -Remainder of plan as above Resident Activity Tracking Resident Involvement: Resident Care Provided Care Provided: Adult Hospital Medicine
[2022-05-21 00:27] LABS: BUN Creatinine Ratio 13.4 (10-20); Bilirubin Direct 3.4 mg/dl (0-0.2); Calcium 7.6 mg/dl (8.5-10.1); Est GFR (Non-African American) 66.5 ml/min; Phosphorus 2.4 mg/dl (2.5-4.9); Potassium 2.6 mmol/L (3.5-5.1)
[2022-05-21 00:36] LABS: INR 2.8 (0.9-1.1); Partial Thromboplastin Ratio 1.4; Prothrombin Time 28.1 Seconds (9.0-12.0)
[2022-05-21] MEDS ORDERED: CARBOHYDRATES FOR HYPOGLYCEMIA PO PRN (01:36)
[2022-05-21] MEDS ORDERED: GLUCOSE 40% GEL 15 GM TUBE PO PRN (01:36)
[2022-05-21] MEDS ORDERED: GLUCOSE 10 TAB/TUBE PO PRN (01:36)
[2022-05-21] MEDS ORDERED: LORazepam 2 MG/1 ML VIAL IV PRN ×2 (01:36)
[2022-05-21] MEDS ORDERED: ONDANSETRON INJ 2 MG/ML 2 ML VIAL IV PRN (01:36)
[2022-05-21] MEDS ORDERED: GLUCAGON FOR INJ 1 MG VIAL SQ PRN (01:36)
[2022-05-21] MEDS ORDERED: DEXTROSE 50% 50 ML SYRINGE IV PRN (01:36)
[2022-05-21] MEDS ORDERED: Ativan IV Alcohol Withdrawal--Active Protocol IV PRN (01:36)
[2022-05-21] MEDS ORDERED: FLUARIX QUADRIVALENT 0.5 ML SYR IM ONE (02:36)
[2022-05-21] MEDS ORDERED: PNEUMOCOCCAL POLYSACCHARIDES 25 MCG/0.5 ML VIAL/SYR IM ONE (02:36)
[2022-05-21] MEDS: POTASSIUM CHLORIDE / WTR 10 MEQ/100 ML PLCT IV SCH ×11 (02:53→16:39)
[2022-05-21] MEDS: MAGNESIUM SULFATE / D5W 1 GM/100 ML BAG IV SCH ×6 (03:03→13:06)
[2022-05-21 04:00] LABS: Amphetamines+Metham, Urine Neg (Neg); Barbiturates, Urine Neg (Neg); Benzodiazepine, Urine Pos (Neg); Cocaine, Urine Neg (Neg); MDMA (Ecstacy), Urine Neg (Neg); Methadone, Urine Neg (Neg); Opiate, Urine Neg (Neg); Phencyclidine, Urine Neg (Neg)
[2022-05-21] MEDS: LORazepam 2 MG/1 ML VIAL IV PRN (06:09)
[2022-05-21] MEDS: INSULIN ASPART PER UNIT SC SCH ×3 (07:22→17:37)
--- NOTE | 2022-05-21 07:28 | Hospitalist Progress Note ---
Date of Service May 21, 2022 Assessment & Plan (1) Hepatic encephalopathy: Plan: Completely disoriented and aggressive on presentation, requiring Haldol x2 and Ativan x2. Ammonia 116 --> Hepatic encephalopathy. - s/p Lactulose 20gm PO in ED on 05/20 - continue with 20gm PO TID and aim for 4-5 BMs per day, only 1 BM today--> consider enema if no improvement - consult GI - appreciate recs: Started zinc sulfate, rifaximin; withhold diuretics. Need for diagnostic paracentesis. Discuss with Radiology tomorrow. - NPO for now (besides meds and in particular lactulose) given significantly altered (2) Acute hepatitis: Plan: AST 282/ALT 56/TBili 7.0/INR 2.8/PT 28.1, significantly elevated in comparison to previous LFTs earlier this month. BAL negative on admission but patient reportedly has a significant alcohol abuse history. Suspect alcoholic hepatitis. - check CT A/P as stated above - Maddrey's discriminant score is 81.1 - continue Prednisolone 40mg PO daily - GI consulted as stated above (3) Alcoholic cirrhosis of liver: Plan: Chronic diagnosis, with high possibility that patient is still using alcohol although current history is limited (BAL negative on presentation). Previously MELD was 28 in 03/2022 (likely was falsely elevated due to RODRIGO at the time). Currently MELD score 27. - GI consulted as stated above - continue home Propranolol and Spironolactone - trend MELD labs daily - patient may need to be transferred to tertiary care center if continues to decompensate (4) Abdominal distension: Plan: Reportedly has been present on previous admissions, with previous CT scans showing ascites in this patient with known cirrhosis. No abdominal pain on exam, and patient does not apear toxic, although exam is limited due to patient's AMS. - CT A/P consistent with cirrhosis with portal hypertension, varices, and moderate ascites. - UDS positive for benzodiazepines. Ethyl alcohol less than 10. -Discuss diagnostic paracentesis as above. (5) Lower extremity edema: Plan: Significant bilateral LE pitting edema. Likely due to hepatic congestion in setting of cirrhosis/hepatitis. Patient uses 2L supplemental O2 chronically without increased requirement. Lungs clear on exam. Do not suspect pulmonary edema. - trend clinically -Hold Lasix at this time per GI. - strict I/Os (robertson placed in ED), daily weights (6) RODRIGO (acute kidney injury): Plan: Cr 1.16 today. Improved. baseline 0.8 - 1.0. Suspect mild pre-renal injury in context of above. - s/p NSS 500cc bolus in ED - check BMP again in AM (7) Hypokalemia: Plan: K 2.7 today, EKG with chronic QTc elevation at 505ms but no other abnormalities. - Giving additional 6 k riders today. Lethargy preventing oral administration - Recheck BMP in AM (8) Hypomagnesemia: Plan: -Mg at 1.3, but was still receiving repletion at the time this value was taken -Recheck in AM (9) Alcohol use: Plan: BAL negative here, but with significant past alcohol abuse history. Was agitated on presentation and is now s/p Haldol 10mg and Ativan 2mg. Currently calm without symptoms of withdrawal. - AWSS protocol with PRN Ativan - s/p Thiamine/Folate IV in ED - additional IV supplementation given today do to mental status - encourage cessation (10) Pancytopenia: Plan: WBC 3.22/Hgb 11/plts 32 - at chronic baseline. No signs active bleeding. Likely due to alcohol abuse and cirrhosis. - trend daily - avoid DVT ppx due to plts <50 (11) COVID-19: Plan: Reportedly positive 8 days ago, and again positive in ED today. Unable to obtain history but patient is on chronic 2L supplemental O2, lungs are clear and he does not appear to be symptomatic. - maintain COVID-19 precautions for now - no Steroids/Remdesivir (12) Hepatitis C: Plan: Reportedly was recently diagnosed and patient was scheduled to see [facility] for HepC treatment but had not seen them yet. - defer to GI: recommend outpatien f/u with hepatology (13) COPD (chronic obstructive pulmonary disease): Plan: Reportedly history of this, although not on home meds. Chronically on 2L nasal cannula at home and without extra requirements here. - PRN Duonebs - continue supplemental O2 to maintain sats >90% - consider PRN Duonebs +/- LAMA on discharge - per primary team (14) Opioid use disorder: Plan: Continue home Buprenorphine (15) Type 2 diabetes mellitus: Plan: A1c 9.8 in 02/2022. - half-dose Lantus (40 units BID), and Q6H checks, while NPO - SSI ordered (16) GERD (gastroesophageal reflux disease): Plan: Protonix per hospital formulary Plan FEN/GI: NPO DVT Prophylaxis: SCDs, chemoppx contraindicated as plts <50 Code Status: full code Disposition: PCU Admission and Anticipated Discharge Date Admission Date: May 20, 2022 Supervising Physician Co-Signing Physician Notes Attending attestation Pt seen and examined in concert with Dr. Trivedi. In agreement with the documented findings as noted in the resident documentation with any exceptions or additions as noted here. History unobtainable 2/2 patient disorientation. VS and nursing notes reviewed. On examination, S1/S2 nl RRR no MCG. CTAB. Abd NT/ND BS+ve. Acute hepatitis with hepatic encephalopathy in the setting of alcoholic cirrhosis - GI consult - continue prednisolone, trend CMP daily. Paracentesis pending. Follow up D Bili Alcoholic cirrhosis - continue propranolol, spironolactone. Trend MELD daily (last ) and consider txf with decompensation Hypokalemia, hypomagnesemia - trend BMP daily and replete. Else see resident documentation as noted. Subjective Patient seen at bedside this morning. No acute events reported overnight. Patient currently obtunded and not alert at this time. Occasionally responds to questions with simple yes without any context. Otherwise makes incongruent noises. No meaningful HPI obtained at this time. Review of Systems Review of Systems: Unobtainable due to cognitive status Physical Exam Constitutional: well developed; no acute distress Neck: trachea midline, no thyromegaly Respiratory: normal respiratory effort; no respiratory distress Auscultation: lungs clear to auscultation bilaterally; no crackles Cardiovascular: RRR, no murmur, no edema Gastrointestinal (Abdomen): Inspection/Auscultation: normal bowel sounds and + abdominal edema Percussion/Palpation: abdomen soft and + fluid wave Musculoskeletal: Head/Neck/Chest: normocephalic and head atraumatic Skin: + jaundice Neurologic: + obtunded Psychiatric: Orientation: + not alert Results & Data Results & Data ([facility]) Vital Signs (Past 12 Hours) Vital Signs Temp Pulse Pulse Resp BP BP Pulse Ox 05/21/22 03:28 36.8 C 92 H 20 144/77 H 98 05/21/22 01:35 05/21/22 01:35 36.6 C 108 H 20 158/79 H 95 05/21/22 01:36 36.6 C 108 H 20 158/79 H 95 05/21/22 01:00 05/20/22 23:26 102 H 21 132/87 96 05/20/22 23:00 95 05/20/22 19:39 92 05/20/22 21:30 96 H 19 92 05/20/22 21:00 93 H 14 100 05/20/22 20:30 92 H 20 96 05/20/22 20:00 87 15 94 05/20/22 19:38 93 H 17 96 05/20/22 19:37 37.2 C 89 16 132/91 94 O2 Del Method O2 Flow Rate 05/21/22 03:28 Nasal Cannula 2.0 05/21/22 01:35 Nasal Cannula 2 05/21/22 01:35 Nasal Cannula 2 05/21/22 01:36 Nasal Cannula 2 05/21/22 01:00 Nasal Cannula 2 05/20/22 23:26 Nasal Cannula 05/20/22 23:00 Nasal Cannula 2 05/20/22 19:39 Nasal Cannula 2 05/20/22 21:30 Nasal Cannula 3 05/20/22 21:00 05/20/22 20:30 05/20/22 20:00 05/20/22 19:38 05/20/22 19:37 Nasal Cannula 2
[2022-05-21] MEDS ORDERED: INSULIN ASPART PER UNIT SC SCH (07:30)
--- NOTE | 2022-05-21 07:46 | CT Scan Report ---
HEAD CT NONCONTRAST CT DOSE: 614.27 mGy.cm HISTORY: Altered mental status. TECHNIQUE: Multiaxial CT images of the head were performed without the use of intravenous contrast. A utomated exposure control was utilized for this study. A dose lowering technique was utilized adheri ng to the principles of ALARA. Comparison: Head CT 04/15/2022. Findings: The paranasal sinuses and mastoid air cells are clear. The calvarium and skull base are int act. The ventricles and sulci are within normal limits. There is no mass, hematoma, midline shift, or acute infarct. There is an old punctate lacunar infarct within the left basal ganglia. Impression: No acute intracranial abnormality. ACT 112: Negative or not required by law. Electronically signed by: James Lemus M.D. 05/21/2022 7:44 AM
[2022-05-21 08:15] LABS: INR 2.8 (0.9-1.1); Prothrombin Time 28.2 Seconds (9.0-12.0)
[2022-05-21 08:26] LABS: Hemoglobin 10.6 g/dl (14.0-18.0); Mean Corpuscular Hemoglobin 31.5 pg (25.0-34.0); Mean Corpuscular Hgb Conc 35.3 g/dL (32.0-36.0); Mean Corpuscular Volume 89.3 fL (80.0-100.0); Platelet Count 21 K/uL (130-400); RDW Coefficient of Variation 19.3 % (11.5-14.5); RDW Standard Deviation 60.8 fL (36.4-46.3); Red Blood Count 3.36 M/uL (4.63-6.08); White Blood Count 3.03 K/ul (4.8-10.8)
[2022-05-21 08:29] LABS: Albumin Globulin Ratio 0.6 (0.9-2); Albumin Level 2.5 gm/dl (3.4-5.0); BUN Creatinine Ratio 13.8 (10-20); Bilirubin,Total 6.3 mg/dl (0.2-1.0); Est GFR (African American) 79.4 ml/min; Est GFR (Non-African American) 68.5 ml/min; Globulin 3.9 gm/dl (2.5-4.0); Magnesium 1.3 mg/dl (1.7-2.4); Potassium 2.7 mmol/L (3.5-5.1); Total Protein 6.4 gm/dl (6.0-8.3)
[2022-05-21] MEDS: LANTUS PER UNIT CHARGE SQ SCH ×2 (08:55→20:41)
--- NOTE | 2022-05-21 09:28 | CT Scan Report ---
CT OF THE ABDOMEN AND PELVIS WITH CONTRAST CLINICAL HISTORY: marked abdominal distension, fluid wave COMPARISON STUDY: CT of the abdomen and pelvis April 15, 2022. TECHNIQUE: Following IV administration of 88 mL of Optiray, axial images of the abdomen and pelvis we re obtained from the lung bases to the proximal femurs. Images were reviewed in the axial, sagittal, and coronal planes. The IV became disconnected during the study.. Automated exposure control was uti lized for the study. A dose lowering technique was utilized adhering to the principles of ALARA. CT DOSE: 1267.13 mGy.cm FINDINGS: Circumferential wall thickening of the distal esophagus is similar to prior exam. There is mild interlobular septal thickening within the lower lungs. Lingular and bilateral lower lobe airspac e opacities are present. Due to IV malfunction, there is minimal, if any, intravenous contrast. This compromises evaluation of the abdomen and pelvis. The liver is markedly heterogeneous and nodular in appearance consistent with cirrhosis. There is hepatic steatosis. Heterogeneity of the liver has incr eased since prior exams. Gallbladder distention is unchanged. There are gallstones within the gallbla dder. Splenomegaly is again noted. Moderate volume ascites is present. Abdominal collaterals are pres ent. No pneumatosis, free air or portal venous gas is present. There is no hydronephrosis. A few left renal calculi are noted. There are no ureteral calculi. No biliary or pancreatic ductal dilatation i s present. Adrenal glands and pancreas are unremarkable. The bladder is distended. There is no eviden ce for a bowel obstruction. Appendix is not well visualized on this examination. No acute fractures a re identified within the visualized skeletal structures. Body wall edema is present. IMPRESSION: 1. Cirrhosis with manifestations of portal hypertension including splenomegaly, varices formation and moderate ascites. Increase in marked heterogeneity of the liver. 2. No change in gallbladder distention. Cholelithiasis. 3. No bowel obstruction. 4. Lower lung airspace opacities which could reflect atelectasis or an infectious process. Suspected mild interstitial pulmonary edema. 5. No change in distal esophageal wall thickening. This may reflect esophagitis. ACT 112: Negative or not required by law. Electronically signed by: Remi Hernandez M.D. 05/21/2022 9:26 AM
[2022-05-21 09:43] LABS: Basophils # (auto) 0.02 K/uL (0-0.2); Basophils % (auto) 0.7 %; Eosinophils # (auto) 0.09 K/uL (0-0.50); Immature Granulocytes # (auto) 0.01 K/uL (0.00-0.02); Immature Granulocytes % (auto) 0.3 %; Lymphocytes # (auto) 0.65 K/uL (1.2-3.4); Lymphocytes % (auto) 21.5 %; Monocytes # (auto) 0.32 K/uL (0.24-0.82); Monocytes % (auto) 10.6 %; Neutrophils # (auto) 1.94 K/uL (1.4-6.5); Neutrophils % (auto) 63.9 %; Polychromasia 1+; Target Cells 1+
--- NOTE | 2022-05-21 10:02 | Electrocardiogram Report ---
Test Reason : Blood Pressure : / mmHG Vent. Rate : 088 BPM Atrial Rate : 088 BPM P-R Int : 164 ms QRS Dur : 098 ms QT Int : 418 ms P-R-T Axes : 070 -12 039 degrees QTc Int : 505 ms Normal sinus rhythm Possible Inferior infarct , age undetermined Prolonged QT Abnormal ECG When compared with ECG of 16-APR-2022 05:30, Questionable change in QRS axis Confirmed by Pedro Pablo Loo ([id number]) on 05/21/2022 10:02:23 AM Referred By: REFERRED SELF Confirmed By:Scottie Loo
[2022-05-21] MEDS ORDERED: MAGNESIUM SULFATE / D5W 1 GM/100 ML BAG IV SCH (10:15)
--- NOTE | 2022-05-21 10:31 | Communication Note ---
Date of Service: May 21, 2022 GI note 61 yo male with hx chronic hepatitis C, ETOH abuse and cirrhosis, heroin and IV drug abuse with recent hospitalization for hepatic encephalopathy here with AMS. It is suspected at this time that he has been drinking alcohol again, MDF is 85 and MELD-Na is 27. He is covid positive. Placed on lactulose, blood cultures are pending. CT imaging shows ascites, varices, and evidence of portal hypertension. He is on prednisolone as well for suspected ETOH hepatitis, afebrile and blood cultures are pending. Impression: AMS 2/2 HE with suspected ETOH hepatitis as well. Poor prognosis indicated by high MELD and MDF. Recs: --continue lactulose PO TID titrate to 3-4 loose bowel movements daily, if not taking PO then use lactulose enemas --start rifaximin 550 mg BID --start zinc sulfate 100 mg daily --continue prednisolone 40 mg daily for now, check Lille score on day 7 to assess for tx response/continued value of steroids. If shows signs of infection, GI bleeding then discontinue steroids. --f/u cultures, obtain diagnostic paracentesis when able --continue protonix 40 mg BID for now --EGD for variceal surveillance as an outpatient with Dr. Leach, should be yearly as he is decompensated --would hold diuretics for now until Hepatic encephalopathy has resolved --monitor for signs of alcohol withdrawal --if decompensates further strongly consider transfer to tertiary care/liver transplant center for advanced care. Thank you for allowing me to participate in the care of this patient. Tyrell Gomez MD Gastroenterology
[2022-05-21] MEDS ORDERED: THIAMINE HCL 100 MG in SYRINGE 9 ML IV ONE (11:00)
[2022-05-21] MEDS: MAGNESIUM OXIDE 400 MG TAB PO SCH ×3 (11:02→21:05)
[2022-05-21] MEDS: ASPIRIN 81 MG ECTAB PO SCH (11:02)
[2022-05-21] MEDS: FOLIC ACID 1 MG TAB PO SCH (11:02)
[2022-05-21] MEDS: LACTULOSE SYRUP 20 GM/30 ML UDC PO SCH ×3 (11:02→21:05)
[2022-05-21] MEDS: buprenorphine HCL 8 MG SUBL SL SCH ×3 (11:02→21:05)
[2022-05-21] MEDS: PROPRANOLOL HCL 10 MG TAB PO SCH ×2 (11:03→21:05)
[2022-05-21] MEDS: prednisoLONE sod phosphate 15 MG/5 ML PO SCH (11:03)
[2022-05-21] MEDS: THIAMINE HCL 100 MG TAB PO SCH (11:03)
[2022-05-21] MEDS: SPIRONOLACTONE 25 MG TAB PO SCH (11:03)
[2022-05-21] MEDS: PANTOprazole 40 MG TAB PO SCH ×2 (11:03→21:05)
[2022-05-21] MEDS: ALFUZOSIN HCL 10 MG TAB PO SCH (16:40)
[2022-05-21 16:46] LABS: Albumin Globulin Ratio 0.6 (0.9-2); Albumin Level 2.7 gm/dl (3.4-5.0); BUN Creatinine Ratio 13.7 (10-20); Bilirubin,Total 6.8 mg/dl (0.2-1.0); Calcium 7.7 mg/dl (8.5-10.1); Creatinine Clr Calc Pharmacy 95.5 ml/min; Est GFR (African American) 92.8 ml/min; Est GFR (Non-African American) 80.1 ml/min; Globulin 4.4 gm/dl (2.5-4.0); Potassium 2.8 mmol/L (3.5-5.1); Total Protein 7.1 gm/dl (6.0-8.3)
[2022-05-21] MEDS ORDERED: LANTUS PER UNIT CHARGE SQ ONE (20:41)
--- NOTE | 2022-05-21 21:02 | Billing Data ---
Date of Service May 20, 2022 Coding Level of Care Code 83935 Initial Inpt Care Lvl 3
[2022-05-21] MEDS: rifAXIMin 550 MG TABLET PO SCH (21:05)
[2022-05-22] MEDS: INSULIN ASPART PER UNIT SC SCH ×4 (00:11→17:52)
[2022-05-22] MEDS: LORazepam 2 MG/1 ML VIAL IV PRN (03:50)
[2022-05-22 07:26] LABS: INR 2.5 (0.9-1.1); Prothrombin Time 25.8 Seconds (9.0-12.0)
--- NOTE | 2022-05-22 07:36 | Hospitalist Progress Note ---
Date of Service May 22, 2022 Assessment & Plan (1) Hepatic encephalopathy: Plan: Completely disoriented and aggressive on admit, given Haldol x2 and Ativan x2. Ammonia 116 --> Hepatic encephalopathy. - s/p Lactulose 20gm PO in ED on 05/20 - continue with 20gm PO TID and aim for 4-5 BMs per day, only 1 BM today--> consider enema if no improvement - consult GI - appreciate recs: Started zinc sulfate, rifaximin; withhold diuretics. unable to do diagnostic paracentesis due to INR and platelet level -started empiric ceftriaxone 2g daily on 05/22 for 5 days for possible SBP - NPO for now (besides meds and in particular lactulose) given significantly altered -soft restraints ordered Urethral Trauma -patient pulled out robertson 05/22 with bleeding and clots -robertson reinserted (2) Acute hepatitis: Plan: AST 282/ALT 56/TBili 7.0/INR 2.8/PT 28.1, significantly elevated in comparison to previous LFTs earlier this month. BAL negative on admission but patient reportedly has a significant alcohol abuse history. Suspect alcoholic hepatitis. - CT A/P= Cirrhosis with manifestations of portal hypertension including splenomegaly, varices formation and moderate ascites. Increase in marked heterogeneity of the liver. No change in gallbladder distention. Cholelithiasis. No bowel obstruction. Lower lung airspace opacities which could reflect atelectasis or an infectious process. Suspected mild interstitial pulmonary edema. No change in distal esophageal wall thickening. This may reflect esophagitis. - Maddrey's discriminant score is 81.1 - continue Prednisolone 40mg PO daily - GI consulted as stated above (3) Alcoholic cirrhosis of liver: Plan: Chronic diagnosis, with high possibility that patient is still using alcohol although current history is limited (BAL negative on presentation). Previously MELD was 28 in 03/2022 (likely was falsely elevated due to RODRIGO at the time). Currently MELD score 23. - GI consulted as stated above - continue home Propranolol and Spironolactone - trend MELD labs daily - patient may need to be transferred to tertiary care center if continues to decompensate (4) Abdominal distension: Plan: Reportedly has been present on previous admissions, with previous CT scans showing ascites in this patient with known cirrhosis. No abdominal pain on exam, and patient does not apear toxic, although exam is limited due to patient's AMS. - CT A/P consistent with cirrhosis with portal hypertension, varices, and moderate ascites. - UDS positive for benzodiazepines. Ethyl alcohol less than 10. (5) Lower extremity edema: Plan: Significant bilateral LE pitting edema. Likely due to hepatic congestion in setting of cirrhosis/hepatitis. Patient uses 2L supplemental O2 chronically without increased requirement. Lungs clear on exam. Do not suspect pulmonary edema. - trend clinically -Hold Lasix at this time per GI. - strict I/Os (robertson placed in ED), daily weights (6) RODRIGO (acute kidney injury): Plan: Cr 1.16 today. Improved. baseline 0.8 - 1.0. Suspect mild pre-renal injury in context of above. - s/p NSS 500cc bolus in ED - trend BMP (7) Hypokalemia: Plan: K 2.7 today, EKG with chronic QTc elevation at 505ms but no other abnormalities. - repleted as necessary - Recheck BMP in AM (8) Hypomagnesemia: Plan: -Mg at 1.3, but was still receiving repletion at the time this value was taken -Recheck in AM (9) Alcohol use: Plan: BAL negative here, but with significant past alcohol abuse history. Was agitated on presentation and is now s/p Haldol 10mg and Ativan 2mg. Currently calm without symptoms of withdrawal. - AWSS protocol, ativan discontinued given likely his symptoms are hepatic encephalopathy, increased ativan will worsen AMS - s/p Thiamine/Folate IV in ED - additional IV supplementation given today do to mental status - encourage cessation (10) Pancytopenia: Plan: WBC 3.22/Hgb 11/plts 32 - at chronic baseline. No signs active bleeding. Likely due to alcohol abuse and cirrhosis. - trend daily - avoid DVT ppx due to plts <50 (11) COVID-19: Plan: Reportedly positive 8 days ago, and again positive in ED today. Unable to obtain history but patient is on chronic 2L supplemental O2, lungs are clear and he does not appear to be symptomatic. - maintain COVID-19 precautions for now - no Steroids/Remdesivir (12) Hepatitis C: Plan: Reportedly was recently diagnosed and patient was scheduled to see [facility] for HepC treatment but had not seen them yet. - defer to GI: recommend outpatient f/u with hepatology (13) COPD (chronic obstructive pulmonary disease): Plan: Reportedly history of this, although not on home meds. Chronically on 2L nasal cannula at home and without extra requirements here. - PRN Duonebs - continue supplemental O2 to maintain sats >90% - consider PRN Duonebs +/- LAMA on discharge - per primary team (14) Opioid use disorder: Plan: Continue home Buprenorphine (15) Type 2 diabetes mellitus: Plan: A1c 9.8 in 02/2022. - half-dose Lantus (20 units daily), and Q6H checks, while NPO - SSI ordered (16) GERD (gastroesophageal reflux disease): Plan: Protonix per hospital formulary Plan FEN/GI: NPO DVT Prophylaxis: SCDs, chemoppx contraindicated as plts <50 Code Status: full code Disposition: PCU Admission and Anticipated Discharge Date Admission Date: May 20, 2022 Supervising Physician Co-Signing Physician Notes I personally examined the patient and verified all pichardo points of history and ex am, discussed case, and agree with decision making with Dr Fong. Able to tell me he is in the hospital. When I ask why he is here he says hospital. At the same time, while HPI/review of systems is exceedingly limited, he does appear comfortable and offers no clear complaints. Vitals noted, in general he is awake disoriented but appears to be in no distress. HEENT normocephalic atraumatic mucous membranes moist. Lungs are diminished with faint rhonchi base right but no other rales no other rhonchi no wheezes good effort no accessory muscle use. Abdomen is soft mildly distended with a little bit of a fluid wave nontender. Skin shows a degree of icterus. Assessment/plan - 61yo male with history of liver cirrhosis, EtOH abuse and chronic HCV presents with acute decompensated cirrhosis and hepatic encephalopathy -Lactulose TID, continue to follow clinically -Unable to get paracentesis yetempiric ceftriaxone -Prednisolone initiated for MDF score of 81, continue and continue to reassess -Continue Propranolol and Spironolactone -Consider diagnostic/therapeutic paracentesis -Monitor renal function Chronic respiratory failure with hypoxiachronic O2 use. Pulse ox 87% on room air, 90% on 2 L whenever I see himappears to be more or less at baseline. Otherwise as above Subjective Patient seen at bedside, very sleepy, somewhat responsive to verbal questions, when asked he does request a blanket to cover his body, requests someone examine his feet. He denies any pain, SOB. Review of Systems Review of Systems: All systems reviewed & are unremarkable except as noted in HPI & below Physical Exam Constitutional: + altered mental status, + disheveled and comfortable Eyes: PERRL, conjunctivae normal, anicteric sclerae Results & Data Results & Data ([facility]) Vital Signs (Past 12 Hours) Vital Signs Temp Pulse Resp BP Pulse Ox O2 Del Method O2 Flow Rate 05/22/22 07:15 36.8 C 81 20 163/92 H 92 Nasal Cannula 7 05/22/22 04:50 36.6 C 81 20 164/81 H 92 Nasal Cannula 3 05/22/22 03:00 37 C 76 20 141/82 H 92 Nasal Cannula 3 05/22/22 00:49 Nasal Cannula 3 05/21/22 23:15 36.9 C 83 20 152/89 H 90 Nasal Cannula 3 05/21/22 21:48 36.5 C 82 20 130/76 94 Nasal Cannula 3 05/21/22 20:37 92 H Resident Activity Tracking Resident Involvement: Resident Care Provided Care Provided: Adult Hospital Medicine
[2022-05-22 07:40] LABS: Hematocrit (blood only) 31.3 % (40.1-51.0); Hemoglobin 10.9 g/dl (14.0-18.0); Mean Corpuscular Hemoglobin 31.4 pg (25.0-34.0); Mean Corpuscular Hgb Conc 34.8 g/dL (32.0-36.0); Mean Corpuscular Volume 90.2 fL (80.0-100.0); Mean Platelet Volume 11.3 fL (9.4-12.4); Platelet Count 28 K/uL (130-400); RDW Coefficient of Variation 20.3 % (11.5-14.5); Red Blood Count 3.47 M/uL (4.63-6.08)
[2022-05-22 08:16] LABS: Albumin Globulin Ratio 0.6 (0.9-2); Albumin Level 2.3 gm/dl (3.4-5.0); BUN Creatinine Ratio 13.4 (10-20); Bilirubin Direct 2.6 mg/dl (0-0.2); Bilirubin,Total 5.6 mg/dl (0.2-1.0); Calcium 6.9 mg/dl (8.5-10.1); Creatinine Clr Calc Pharmacy 101.1 ml/min; Est GFR (African American) 98.6 ml/min; Est GFR (Non-African American) 85.1 ml/min; Magnesium 1.3 mg/dl (1.7-2.4); Phosphorus 2.3 mg/dl (2.5-4.9); Potassium 3.1 mmol/L (3.5-5.1); Total Protein 6.3 gm/dl (6.0-8.3)
[2022-05-22] MEDS: buprenorphine HCL 8 MG SUBL SL SCH ×3 (08:54→20:17)
[2022-05-22] MEDS: prednisoLONE sod phosphate 15 MG/5 ML PO SCH (08:55)
[2022-05-22] MEDS: PANTOprazole 40 MG TAB PO SCH ×2 (08:55→20:14)
[2022-05-22] MEDS: PROPRANOLOL HCL 10 MG TAB PO SCH ×2 (08:55→20:14)
[2022-05-22] MEDS: MAGNESIUM OXIDE 400 MG TAB PO SCH ×3 (08:55→20:14)
[2022-05-22] MEDS: rifAXIMin 550 MG TABLET PO SCH ×2 (08:55→20:14)
[2022-05-22] MEDS: LACTULOSE SYRUP 20 GM/30 ML UDC PO SCH ×3 (08:56→20:14)
[2022-05-22] MEDS: ASPIRIN 81 MG ECTAB PO SCH (08:56)
[2022-05-22] MEDS: FOLIC ACID 1 MG TAB PO SCH (08:56)
[2022-05-22] MEDS: THIAMINE HCL 100 MG TAB PO SCH (08:56)
[2022-05-22] MEDS: SPIRONOLACTONE 25 MG TAB PO SCH (08:57)
[2022-05-22] MEDS: ZINC SULFATE 220 MG CAPSULE PO SCH (08:58)
[2022-05-22] MEDS: POTASSIUM CHLORIDE / WTR 10 MEQ/100 ML PLCT IV SCH ×6 (10:13→15:49)
[2022-05-22] MEDS: LANTUS PER UNIT CHARGE SQ SCH (10:59)
[2022-05-22] MEDS: cefTRIAXone SODIUM 2,000 MG in DEXTROSE 5% 50 ML IV SCH (13:44)
[2022-05-22] MEDS: ALFUZOSIN HCL 10 MG TAB PO SCH (15:49)
--- NOTE | 2022-05-22 17:28 | Billing Data ---
Date of Service May 22, 2022 Coding Level of Care Code 00923 Subseq Hosp Care Lvl 3
[2022-05-22] MEDS: HALOPERIDOL LACTATE 5 MG/ML 1 ML VIAL IM PRN (17:51)
--- NOTE | 2022-05-22 18:44 | Electrocardiogram Report ---
Test Reason : Blood Pressure : / mmHG Vent. Rate : 099 BPM Atrial Rate : 099 BPM P-R Int : 150 ms QRS Dur : 090 ms QT Int : 402 ms P-R-T Axes : 045 -02 006 degrees QTc Int : 515 ms Poor data quality, interpretation may be adversely affected Normal sinus rhythm Prolonged QT Abnormal ECG When compared with ECG of 20-MAY-2022 19:49, No significant change was found Confirmed by Pedro Pablo Loo ([id number]) on 05/22/2022 6:44:27 PM Referred By: REFERRED SELF Confirmed By:Scottie Loo
[2022-05-23] MEDS: INSULIN ASPART PER UNIT SC SCH ×4 (00:28→18:04)
[2022-05-23] MEDS: HALOPERIDOL LACTATE 5 MG/ML 1 ML VIAL IM PRN (00:36)
--- NOTE | 2022-05-23 06:48 | Hospitalist Progress Note ---
Date of Service May 23, 2022 Assessment & Plan (1) Hepatic encephalopathy: Plan: Completely disoriented and aggressive on admit, given Haldol x2 and Ativan x2. Ammonia 116 --> Hepatic encephalopathy. - s/p Lactulose 20gm PO in ED on 05/20 - continue with 20gm PO QID and aim for 4-5 BMs per day - consult GI - appreciate recs: Started zinc sulfate, rifaximin; withhold diuretics. unable to do diagnostic paracentesis due to INR and platelet level -started empiric ceftriaxone 2g daily on 05/22 for 5 days for possible SBP - Started pureed diet given patient tolerating PO medications -soft restraints ordered Urethral Trauma -patient pulled out robertson 05/22 with bleeding and clots -robertson reinserted (2) Acute hepatitis: Plan: AST 282/ALT 56/TBili 7.0/INR 2.8/PT 28.1, significantly elevated in comparison to previous LFTs earlier this month. BAL negative on admission but patient reportedly has a significant alcohol abuse history. Suspect alcoholic hepatitis. - CT A/P= Cirrhosis with manifestations of portal hypertension including splenomegaly, varices formation and moderate ascites. Increase in marked heterogeneity of the liver. No change in gallbladder distention. Cholelithiasis. No bowel obstruction. Lower lung airspace opacities which could reflect atelectasis or an infectious process. Suspected mild interstitial pulmonary edema. No change in distal esophageal wall thickening. This may reflect esophagitis. - Maddrey's discriminant score is 81.1 - continue Prednisolone 40mg PO daily - GI consulted as stated above (3) Alcoholic cirrhosis of liver: Plan: Chronic diagnosis, with high possibility that patient is still using alcohol although current history is limited (BAL negative on presentation). Previously MELD was 28 in 03/2022 (likely was falsely elevated due to RODRIGO at the time). Currently MELD score 23. - GI consulted as stated above - continue home Propranolol and Spironolactone - trend MELD labs daily - patient may need to be transferred to tertiary care center if continues to decompensate (4) Abdominal distension: Plan: Reportedly has been present on previous admissions, with previous CT scans showing ascites in this patient with known cirrhosis. No abdominal pain on exam, and patient does not apear toxic, although exam is limited due to patient's AMS. - CT A/P consistent with cirrhosis with portal hypertension, varices, and moderate ascites. - UDS positive for benzodiazepines. Ethyl alcohol less than 10. (5) Lower extremity edema: Plan: Significant bilateral LE pitting edema. Likely due to hepatic congestion in set ting of cirrhosis/hepatitis. Patient uses 2L supplemental O2 chronically without increased requirement. Lungs clear on exam. Do not suspect pulmonary edema. - trend clinically -Hold Lasix at this time per GI. - strict I/Os (robertson placed in ED), daily weights (6) RODRIGO (acute kidney injury): Plan: Cr 0.98 today. Improved. baseline 0.8 - 1.0. Suspect mild pre-renal injury in context of above. - s/p NSS 500cc bolus in ED - trend BMP (7) Hypokalemia: Plan: K 2.7 today, EKG with chronic QTc elevation at 505ms but no other abnormalities. - repleted as necessary - trend (8) Hypomagnesemia: Plan: -Mg at 1.3, but was still receiving repletion at the time this value was taken -trend (9) Alcohol use: Plan: BAL negative here, but with significant past alcohol abuse history. Was agitated on presentation and is now s/p Haldol 10mg and Ativan 2mg. Currently calm without symptoms of withdrawal. - AWSS protocol, ativan discontinued given likely his symptoms are hepatic encephalopathy, increased ativan will worsen AMS - s/p Thiamine/Folate IV in ED - additional IV supplementation given today do to mental status - encourage cessation (10) Pancytopenia: Plan: WBC 3.22/Hgb 11/plts 32 - at chronic baseline. No signs active bleeding. Likely due to alcohol abuse and cirrhosis. - trend daily - avoid DVT ppx due to plts <50 (11) COVID-19: Plan: Reportedly positive 8 days ago, and again positive in ED today. Unable to obtain history but patient is on chronic 2L supplemental O2, lungs are clear and he does not appear to be symptomatic. - maintain COVID-19 precautions for now - no Steroids/Remdesivir (12) Hepatitis C: Plan: Reportedly was recently diagnosed and patient was scheduled to see [facility] for HepC treatment but had not seen them yet. - defer to GI: recommend outpatient f/u with hepatology (13) COPD (chronic obstructive pulmonary disease): Plan: Reportedly history of this, although not on home meds. Chronically on 2L nasal cannula at home and without extra requirements here. - PRN Duonebs - continue supplemental O2 to maintain sats >90% - consider PRN Duonebs +/- LAMA on discharge - per primary team (14) Opioid use disorder: Plan: Continue home Buprenorphine (15) Type 2 diabetes mellitus: Plan: A1c 9.8 in 02/2022. - half-dose Lantus (20 units daily), and Q6H checks, while NPO - SSI ordered (16) GERD (gastroesophageal reflux disease): Plan: Protonix per hospital formulary Plan FEN/GI: carb consistent pureed DVT Prophylaxis: SCDs, chemoppx contraindicated as plts <50 Code Status: full code Disposition: PCU Admission and Anticipated Discharge Date Admission Date: May 20, 2022 Supervising Physician Co-Signing Physician Notes I personally examined the patient and verified all pichardo points of history and exam, discussed case, and agree with decision making with Dr Fong. Still quite confused, still mostly only able to tell me he is in the hospital, but is a bit more conversive. Has a vague sensation of abdominal pain. No shortness of breath Vitals noted, in general he is awake disorienteda little more lucid than yesterday, but appears to be in no distress. HEENT normocephalic atraumatic mucous membranes moist. Lungs are diminished but overall clear no wheezes good effort no accessory muscle use. Abdomen is soft mildly distended with a little bit of a fluid wave mild nonspecific and not exactly reproducible tenderness. Skin shows a degree of icterus. Assessment/plan - 61yo male with history of liver cirrhosis, EtOH abuse and chronic HCV presents with acute decompensated cirrhosis and hepatic encephalopathy -Uncertain if his altered mentation is all purely hepatic encephalopathy, or if he also has a degree of delirium/hospital-acquired delirium/possible toxic encephalopathy related to benzodiazepines whenever there is more concern he might have alcohol withdrawal, possible septic encephalopathy related to possible SBPat this point will escalate his lactulose to 30 g 4 times daily to try to ensure that the possibility of hepatic encephalopathy is being adequately addressed -Unable to get paracentesis yetempiric ceftriaxone to continue -Prednisolone initiated for MDF score of 81, continue and continue to reassess -Vitamin Kfollow INR for correction -Continue Propranolol and Spironolactone -Consider diagnostic/therapeutic paracentesis -Monitor renal function Chronic respiratory failure with hypoxiachronic O2 use. No dyspnea, clear but quiet lungs. Goal pulse ox appears to be most appropriate to be about 88-92% Otherwise as above Subjective Patient seen at bedside calm comfortable, patient able to articulate he is at [facility] today unable to say why he is in the hospital, complains of some abdominal discomfort. He denies SOB pain elsewhere. Review of Systems Review of Systems: All systems reviewed & are unremarkable except as noted in HPI & below Physical Exam Constitutional: + altered mental status, + disheveled and comfortable ENMT: external ear and nose normal, oropharynx normal Neck: trachea midline, no thyromegaly Respiratory: normal respiratory effort, lungs clear to auscultation Cardiovascular: Rate/Rhythm: regular rate and regular rhythm Gastrointestinal (Abdomen): Inspection/Auscultation: + abdomen distended Percussion/Palpation: + abdomen tender and abdomen soft Skin: no rashes, warm and dry Results & Data Results & Data ([facility]) Vital Signs (Past 12 Hours) Vital Signs Temp Pulse Pulse Resp BP Pulse Ox O2 Del Method 05/23/22 02:59 36.5 C 71 16 107/64 98 Nasal Cannula 05/23/22 02:58 78 05/22/22 20:30 Nasal Cannula 05/22/22 19:07 36.9 C 68 18 103/64 99 Nasal Cannula O2 Flow Rate FiO2 05/23/22 02:59 3 05/23/22 02:58 05/22/22 20:30 2 05/22/22 19:07 3 Resident Activity Tracking Resident Involvement: Resident Care Provided Care Provided: Adult Hospital Medicine
[2022-05-23 07:22] LABS: Hematocrit (blood only) 30.3 % (40.1-51.0); Hemoglobin 10.8 g/dl (14.0-18.0); Mean Corpuscular Hemoglobin 31.6 pg (25.0-34.0); Mean Corpuscular Hgb Conc 35.6 g/dL (32.0-36.0); Mean Corpuscular Volume 88.6 fL (80.0-100.0); Platelet Count 23 K/uL (130-400); RDW Coefficient of Variation 19.5 % (11.5-14.5); Red Blood Count 3.42 M/uL (4.63-6.08); White Blood Count 4.13 K/ul (4.8-10.8)
[2022-05-23 07:34] LABS: Acanthocytes 1+; Basophils # (auto) 0.01 K/uL (0-0.2); Basophils % (auto) 0.2 %; Echinocytes 1+; Eosinophils # (auto) 0.03 K/uL (0-0.50); Eosinophils % (auto) 0.7 %; Immature Granulocytes # (auto) 0.01 K/uL (0.00-0.02); Immature Granulocytes % (auto) 0.2 %; Lymphocytes # (auto) 0.78 K/uL (1.2-3.4); Lymphocytes % (auto) 18.9 %; Monocytes # (auto) 0.44 K/uL (0.24-0.82); Monocytes % (auto) 10.7 %; Neutrophils # (auto) 2.86 K/uL (1.4-6.5); Neutrophils % (auto) 69.3 %; Polychromasia 1+; Target Cells 1+
[2022-05-23 07:36] LABS: INR 2.7 (0.9-1.1); Prothrombin Time 26.9 Seconds (9.0-12.0)
[2022-05-23 07:38] LABS: Albumin Globulin Ratio 0.6 (0.9-2); Albumin Level 2.4 gm/dl (3.4-5.0); BUN Creatinine Ratio 16.3 (10-20); Bilirubin,Total 4.8 mg/dl (0.2-1.0); Calcium 7.1 mg/dl (8.5-10.1); Creatinine Clr Calc Pharmacy 99.4 ml/min; Est GFR (African American) 97.4 ml/min; Est GFR (Non-African American) 84.1 ml/min; Globulin 3.9 gm/dl (2.5-4.0); Magnesium 1.3 mg/dl (1.7-2.4); Potassium 3.5 mmol/L (3.5-5.1); Total Protein 6.3 gm/dl (6.0-8.3)
[2022-05-23] MEDS ORDERED: PHYTONADIONE 10 MG in DEXTROSE 5% 50 ML IV ONE (08:30)
[2022-05-23] MEDS: PANTOprazole 40 MG TAB PO SCH ×2 (09:32→21:51)
[2022-05-23] MEDS: FOLIC ACID 1 MG TAB PO SCH (09:32)
[2022-05-23] MEDS: PROPRANOLOL HCL 10 MG TAB PO SCH ×2 (09:32→21:55)
[2022-05-23] MEDS: ASPIRIN 81 MG ECTAB PO SCH (09:33)
[2022-05-23] MEDS: THIAMINE HCL 100 MG TAB PO SCH (09:33)
[2022-05-23] MEDS: SPIRONOLACTONE 25 MG TAB PO SCH (09:33)
[2022-05-23] MEDS: rifAXIMin 550 MG TABLET PO SCH ×2 (09:33→21:52)
[2022-05-23] MEDS: prednisoLONE sod phosphate 15 MG/5 ML PO SCH (09:34)
[2022-05-23] MEDS: LACTULOSE SYRUP 20 GM/30 ML UDC PO SCH ×3 (09:34→21:49)
[2022-05-23] MEDS: MAGNESIUM OXIDE 400 MG TAB PO SCH ×3 (09:35→21:50)
[2022-05-23] MEDS: ZINC SULFATE 220 MG CAPSULE PO SCH (09:36)
[2022-05-23] MEDS: buprenorphine HCL 8 MG SUBL SL SCH ×3 (09:42→21:54)
[2022-05-23] MEDS: LANTUS PER UNIT CHARGE SQ SCH (09:42)
[2022-05-23] MEDS ORDERED: POTASSIUM CHLORIDE CRTAB 20 MEQ TABCR PO ONE (10:15)
[2022-05-23] MEDS ORDERED: POTASSIUM CHLORIDE / WTR 10 MEQ/100 ML PLCT IV SCH (10:30)
[2022-05-23] MEDS: MAGNESIUM SULFATE / D5W 1 GM/100 ML BAG IV SCH ×4 (10:41→18:03)
[2022-05-23] MEDS: cefTRIAXone SODIUM 2,000 MG in DEXTROSE 5% 50 ML IV SCH (14:54)
[2022-05-23] MEDS: ALFUZOSIN HCL 10 MG TAB PO SCH (18:04)
--- NOTE | 2022-05-23 18:20 | Billing Data ---
Date of Service May 23, 2022 Coding Level of Care Code 92220 SUB INP/OBS CARE
[2022-05-23] MEDS ORDERED: HALOPERIDOL LACTATE 5 MG/ML 1 ML VIAL IM STA (23:54)
[2022-05-24] MEDS: INSULIN ASPART PER UNIT SC SCH ×4 (00:12→17:17)
--- NOTE | 2022-05-24 07:41 | Hospitalist Progress Note ---
Date of Service May 24, 2022 Assessment & Plan (1) Hepatic encephalopathy: Plan: Completely disoriented and aggressive on admit, given Haldol x2 and Ativan x2. Ammonia 116 --> Hepatic encephalopathy. - s/p Lactulose 20gm PO in ED on 05/20 - continue with 20gm PO QID and aim for 4-5 BMs per day - consult GI - appreciate recs: Started zinc sulfate, rifaximin; withhold diuretics. unable to do diagnostic paracentesis due to INR and platelet level -started empiric ceftriaxone 2g daily on 05/22 for 5 days for possible SBP - Started pureed diet given patient tolerating PO medications -soft restraints ordered Urethral Trauma -patient pulled out robertson 05/22 with bleeding and clots -robertson reinserted (2) Acute hepatitis: Plan: AST 282/ALT 56/TBili 7.0/INR 2.8/PT 28.1, significantly elevated in comparison to previous LFTs earlier this month. BAL negative on admission but patient reportedly has a significant alcohol abuse history. Suspect alcoholic hepatitis. - CT A/P= Cirrhosis with manifestations of portal hypertension including splenomegaly, varices formation and moderate ascites. Increase in marked heterogeneity of the liver. No change in gallbladder distention. Cholelithiasis. No bowel obstruction. Lower lung airspace opacities which could reflect atelectasis or an infectious process. Suspected mild interstitial pulmonary edema. No change in distal esophageal wall thickening. This may reflect esophagitis. - Maddrey's discriminant score is 81.1 - continue Prednisolone 40mg PO daily - GI consulted as stated above (3) Alcoholic cirrhosis of liver: Plan: Chronic diagnosis, with high possibility that patient is still using alcohol although current history is limited (BAL negative on presentation). Previously MELD was 28 in 03/2022 (likely was falsely elevated due to RODRIGO at the time). Currently MELD score 23. - GI consulted as stated above - continue home Propranolol and Spironolactone - trend MELD labs daily - patient may need to be transferred to tertiary care center if continues to decompensate (4) Abdominal distension: Plan: Reportedly has been present on previous admissions, with previous CT scans showing ascites in this patient with known cirrhosis. No abdominal pain on exam, and patient does not apear toxic, although exam is limited due to patient's AMS. - CT A/P consistent with cirrhosis with portal hypertension, varices, and moderate ascites. - UDS positive for benzodiazepines. Ethyl alcohol less than 10. (5) Lower extremity edema: Plan: Significant bilateral LE pitting edema. Likely due to hepatic congestion in set ting of cirrhosis/hepatitis. Patient uses 2L supplemental O2 chronically without increased requirement. Lungs clear on exam. Do not suspect pulmonary edema. - trend clinically -Hold Lasix at this time per GI. - strict I/Os (robertson placed in ED), daily weights (6) RODRIOG (acute kidney injury): Plan: Cr 0.98 today. Improved. baseline 0.8 - 1.0. Suspect mild pre-renal injury in context of above. - s/p NSS 500cc bolus in ED - trend BMP (7) Hypokalemia: Plan: K 2.7 today, EKG with chronic QTc elevation at 505ms but no other abnormalities. - repleted as necessary - trend (8) Hypomagnesemia: Plan: -Mg at 1.3, but was still receiving repletion at the time this value was taken -trend (9) Alcohol use: Plan: BAL negative here, but with significant past alcohol abuse history. Was agitated on presentation and is now s/p Haldol 10mg and Ativan 2mg. Currently calm without symptoms of withdrawal. - AWSS protocol, ativan discontinued given likely his symptoms are hepatic encephalopathy - repleting thiamine in case of contribution of thiamine deficiency to ongoing delirium - encourage cessation (10) Pancytopenia: Plan: WBC 3.22/Hgb 11/plts 32 - at chronic baseline. No signs active bleeding. Likely due to alcohol abuse and cirrhosis. - trend daily - avoid DVT ppx due to plts <50 (11) COVID-19: Plan: Reportedly positive 8 days ago, and again positive in ED today. Unable to obtain history but patient is on chronic 2L supplemental O2, lungs are clear and he does not appear to be symptomatic. - maintain COVID-19 precautions for now - no Steroids/Remdesivir (12) Hepatitis C: Plan: Reportedly was recently diagnosed and patient was scheduled to see [facility] for HepC treatment but had not seen them yet. - defer to GI: recommend outpatient f/u with hepatology (13) COPD (chronic obstructive pulmonary disease): Plan: Reportedly history of this, although not on home meds. Chronically on 2L nasal cannula at home and without extra requirements here. - PRN Duonebs - continue supplemental O2 to maintain sats >90% - consider PRN Duonebs +/- LAMA on discharge - per primary team (14) Opioid use disorder: Plan: Continue home Buprenorphine (15) Type 2 diabetes mellitus: Plan: A1c 9.8 in 02/2022. - lantus at 15U, diet ordered - SSI ordered (16) GERD (gastroesophageal reflux disease): Plan: Protonix per hospital formulary Plan FEN/GI: carb consistent pureed DVT Prophylaxis: SCDs, chemoppx contraindicated as plts <50 Code Status: full code Disposition: PCU Admission and Anticipated Discharge Date Admission Date: May 20, 2022 Supervising Physician Co-Signing Physician Notes I personally examined the patient and verified all pichardo points of history and exam, discussed case, and agree with decision making with Dr Fong. Still confused but in addition to being able to tell me is in the hospital he is aware it is [place]. Is a aware that the year is 2022, is a bit more conversive, does not know why he is here though. He also is still quite out of itpulling at the blanket and noting that it is a sweatshirt. Vitals noted, in general he is awake disorientedbut yet again a little more lucid than yesterday, but appears to be in no distress. HEENT normocephalic atraumatic mucous membranes moist. Lungs are diminished but overall clear no wheezes good effort no accessory muscle use. Abdomen is soft mildly distended with a little bit of a fluid wave mild nonspecific and not exactly reproducible tenderness. Skin shows a degree of icterus. Assessment/plan - 61yo male with history of liver cirrhosis, EtOH abuse and chronic HCV presents with acute decompensated cirrhosis and hepatic encephalo sepideh -Appears that altered mental status is multifactorial: Hepatic encephalopathy (continue lactulose, this appears to probably be improving), and also a mixed delirium of toxic encephalopathy (medications, possibly effects from rubbing alcohol) hospital environment, also with his chronic alcohol abuse I have escalated his thiamine to Warnicke type dosing given the possibility, and the relatively benign nature of empiric treatmentcontinue reorientation and supportive care -Unable to get paracentesis yetempiric ceftriaxone to continue -Prednisolone initiated for MDF score of 81, continue and continue to reassess -Is a bit of a pleasant surprise, his INR did improve from 2.72.0 with vitamin K -Continue Propranolol and Spironolactone -Consider diagnostic/therapeutic paracentesis -Monitor renal function Rubbing alcohol injectionfortunately no bacteremia from injection use, and no metabolic acidosiswe were just informed of this today, he has been in the hospital for quite some time. Chronic respiratory failure with hypoxiachronic O2 use. Goal pulse ox appears to be most appropriate to be about 88-92% Otherwise as above Subjective Patient seen at bedside without blankets wearing a diaper, attempting to remove his robertson. He describes some tenderness, possibly in his abdominal area. He denies any SOB, states he did eat food. Patient asked for assistance scooting up the bed as he was unable to move himself. He was amenable to having a blanket placed on him, shortly after kicked it off. He is unable to identify his current location or year. Is able to speak longer sentences today Per nursing he is accepting some oral food with medication, otherwise is not requesting food. Review of Systems Review of Systems: All systems reviewed & are unremarkable except as noted in HPI & below Physical Exam Constitutional: + altered mental status, + disheveled and comfortable Eyes: PERRL, conjunctivae normal, anicteric sclerae ENMT: external ear and nose normal, oropharynx normal Neck: trachea midline, no thyromegaly Respiratory: normal respiratory effort, lungs clear to auscultation Cardiovascular: Rate/Rhythm: regular rate and regular rhythm Gastrointestinal (Abdomen): Inspection/Auscultation: + abdomen distended Percussion/Palpation: + abdomen tender and abdomen soft Skin: no rashes, warm and dry Results & Data Results & Data ([facility]) Vital Signs (Past 12 Hours) Vital Signs Temp Pulse Pulse Resp BP Pulse Ox O2 Del Method 05/24/22 07:16 68 05/23/22 22:46 36.7 C 74 18 113/65 94 Nasal Cannula 05/23/22 22:45 75 05/23/22 20:00 Nasal Cannula O2 Flow Rate 05/24/22 07:16 05/23/22 22:46 3 05/23/22 22:45 05/23/22 20:00 3 Resident Activity Tracking Resident Involvement: Resident Care Provided Care Provided: Adult Hospital Medicine
[2022-05-24 08:08] LABS: Prothrombin Time 20.1 Seconds (9.0-12.0)
[2022-05-24] MEDS: PROPRANOLOL HCL 10 MG TAB PO SCH ×2 (08:15→22:46)
[2022-05-24] MEDS: THIAMINE HCL 100 MG TAB PO SCH (08:15)
[2022-05-24] MEDS: LACTULOSE SYRUP 20 GM/30 ML UDC PO SCH ×4 (08:15→22:44)
[2022-05-24] MEDS: rifAXIMin 550 MG TABLET PO SCH ×2 (08:15→22:47)
[2022-05-24] MEDS: buprenorphine HCL 8 MG SUBL SL SCH ×3 (08:16→23:43)
[2022-05-24] MEDS: FOLIC ACID 1 MG TAB PO SCH (08:16)
[2022-05-24] MEDS: ASPIRIN 81 MG ECTAB PO SCH (08:16)
[2022-05-24] MEDS: prednisoLONE sod phosphate 15 MG/5 ML PO SCH (08:16)
[2022-05-24] MEDS: PANTOprazole 40 MG TAB PO SCH ×2 (08:16→22:46)
[2022-05-24] MEDS: SPIRONOLACTONE 25 MG TAB PO SCH (08:17)
[2022-05-24] MEDS: MAGNESIUM OXIDE 400 MG TAB PO SCH ×3 (08:17→22:45)
[2022-05-24 08:23] LABS: Albumin Globulin Ratio 0.6 (0.9-2); Albumin Level 2.6 gm/dl (3.4-5.0); BUN Creatinine Ratio 20.4 (10-20); Bilirubin,Total 4.1 mg/dl (0.2-1.0); Calcium 7.7 mg/dl (8.5-10.1); Creatinine Clr Calc Pharmacy 90.7 ml/min; Est GFR (African American) 86.6 ml/min; Est GFR (Non-African American) 74.7 ml/min; Globulin 4.1 gm/dl (2.5-4.0); Potassium 3.5 mmol/L (3.5-5.1); Total Protein 6.7 gm/dl (6.0-8.3)
[2022-05-24] MEDS: LANTUS PER UNIT CHARGE SQ SCH (08:26)
[2022-05-24 09:54] LABS: Hematocrit (blood only) 30.2 % (40.1-51.0); Hemoglobin 10.8 g/dl (14.0-18.0); Mean Corpuscular Hemoglobin 31.7 pg (25.0-34.0); Mean Corpuscular Hgb Conc 35.8 g/dL (32.0-36.0); Mean Corpuscular Volume 88.6 fL (80.0-100.0); Platelet Count 31 K/uL (130-400); RDW Coefficient of Variation 21.2 % (11.5-14.5); Red Blood Count 3.41 M/uL (4.63-6.08); White Blood Count 4.52 K/ul (4.8-10.8)
[2022-05-24 10:53] LABS: Basophils # (auto) 0.01 K/uL (0-0.2); Basophils % (auto) 0.2 %; Eosinophils # (auto) 0.06 K/uL (0-0.50); Eosinophils % (auto) 1.3 %; Immature Granulocytes # (auto) 0.01 K/uL (0.00-0.02); Immature Granulocytes % (auto) 0.2 %; Lymphocytes # (auto) 0.98 K/uL (1.2-3.4); Lymphocytes % (auto) 21.7 %; Monocytes # (auto) 0.51 K/uL (0.24-0.82); Monocytes % (auto) 11.3 %; Neutrophils # (auto) 2.95 K/uL (1.4-6.5); Neutrophils % (auto) 65.3 %
[2022-05-24] MEDS: THIAMINE HCL 500 MG in SODIUM CHLORIDE 0.9% 50 ML IV SCH ×2 (11:28→18:46)
[2022-05-24] MEDS: cefTRIAXone SODIUM 2,000 MG in DEXTROSE 5% 50 ML IV SCH (14:19)
[2022-05-24] MEDS: ZINC SULFATE 220 MG CAPSULE PO SCH (14:21)
[2022-05-24] MEDS: ALFUZOSIN HCL 10 MG TAB PO SCH (16:20)
--- NOTE | 2022-05-24 20:39 | Billing Data ---
Date of Service May 24, 2022 Coding Level of Care Code 36460 SUB INP/OBS CARE
[2022-05-24 21:52] LABS: 7-Aminoclonaz, Confirm NEGATIVE ng/mL (<25); Hydro-Alp Ur, GC/MS NEGATIVE ng/mL (<25); Hydroxyethylflurazepam, Conf NEGATIVE ng/mL (<50); Hydroxymidazolam Ur, GC/MS NEGATIVE ng/mL (<50); Hydroxytriazolam NEGATIVE ng/mL (<50); Lorazepam, Ur GC/MS 157 ng/mL (<50); Nordiazepam, Confirm NEGATIVE ng/mL (<50); Oxazepam Ur, GC/MS 61 ng/mL (<50); Temazepam, Confirm 208 ng/mL (<50)
[2022-05-25] MEDS: INSULIN ASPART PER UNIT SC SCH ×5 (00:01→21:53)
[2022-05-25] MEDS: THIAMINE HCL 500 MG in SODIUM CHLORIDE 0.9% 50 ML IV SCH ×3 (02:21→17:11)
--- NOTE | 2022-05-25 07:30 | Hospitalist Progress Note ---
Date of Service May 25, 2022 Assessment & Plan (1) Hepatic encephalopathy: Plan: Completely disoriented and aggressive on admit, given Haldol x2 and Ativan x2. Ammonia 116 --> Hepatic encephalopathy. - s/p Lactulose 30gm PO in ED on 05/20 - continue with 20gm PO QID and aim for 4-5 BMs per day - consult GI - appreciate recs: Started zinc sulfate, rifaximin; withhold diuretics. - Started pureed diet -soft restraints discontinued Abdominal Pain -started empiric ceftriaxone 2g daily on 05/22 for 5 days for possible SBP -will obtain diagnostic and therapeutic paracentesis Urethral Trauma -patient pulled out robertson 05/22 with bleeding and clots -robertson reinserted (2) Acute hepatitis: Plan: AST 282/ALT 56/TBili 7.0/INR 2.8/PT 28.1, significantly elevated in comparison to previous LFTs earlier this month. BAL negative on admission but patient reportedly has a significant alcohol abuse history. Suspect alcoholic hepatitis. - CT A/P= Cirrhosis with manifestations of portal hypertension including splenomegaly, varices formation and moderate ascites. Increase in marked heterogeneity of the liver. No change in gallbladder distention. Cholelithiasis. No bowel obstruction. Lower lung airspace opacities which could reflect atelectasis or an infectious process. Suspected mild interstitial pulmonary edema. No change in distal esophageal wall thickening. This may reflect esophag itis. - Maddrey's discriminant score is 81.1 - continue Prednisolone 40mg PO daily - GI consulted as stated above (3) Alcoholic cirrhosis of liver: Plan: Chronic diagnosis, with high possibility that patient is still using alcohol although current history is limited (BAL negative on presentation). Previously MELD was 28 in 03/2022 (likely was falsely elevated due to RODRIGO at the time). Currently MELD score 19. - GI consulted as stated above - continue home Propranolol and Spironolactone - trend MELD labs daily - patient may need to be transferred to tertiary care center if continues to decompensate (4) Abdominal distension: Plan: Reportedly has been present on previous admissions, with previous CT scans showing ascites in this patient with known cirrhosis. No abdominal pain on exam, and patient does not apear toxic, although exam is limited due to patient's AMS. - CT A/P consistent with cirrhosis with portal hypertension, varices, and moderate ascites. - UDS positive for benzodiazepines. Ethyl alcohol less than 10. (5) Lower extremity edema: Plan: Significant bilateral LE pitting edema. Likely due to hepatic congestion in setting of cirrhosis/hepatitis. Patient uses 2L supplemental O2 chronically without increased requirement. Lungs clear on exam. Do not suspect pulmonary edema. - trend clinically -Hold Lasix at this time per GI. - strict I/Os (robertson placed in ED), daily weights (6) RODRIOG (acute kidney injury): Plan: Cr 0.98 today. Improved. baseline 0.8 - 1.0. Suspect mild pre-renal injury in context of above. - s/p NSS 500cc bolus in ED - trend BMP (7) Hypokalemia: Plan: K 2.7 today, EKG with chronic QTc elevation at 505ms but no other abnormalities. - repleted as necessary - trend (8) Hypomagnesemia: Plan: -Mg at 1.3, but was still receiving repletion at the time this value was taken -trend (9) Alcohol use: Plan: BAL negative here, but with significant past alcohol abuse history. Was agitated on presentation and is now s/p Haldol 10mg and Ativan 2mg. Currently calm without symptoms of withdrawal. - AWSS protocol, ativan discontinued given likely his symptoms are hepatic encephalopathy - repleting thiamine in case of contribution of thiamine deficiency to ongoing delirium - encourage cessation (10) Pancytopenia: Plan: WBC 3.22/Hgb 11/plts 32 - at chronic baseline. No signs active bleeding. Likely due to alcohol abuse and cirrhosis. - trend daily - avoid DVT ppx due to plts <50 (11) COVID-19: Plan: Reportedly positive 8 days ago, and again positive in ED today. Unable to obtain history but patient is on chronic 2L supplemental O2, lungs are clear and he does not appear to be symptomatic. - completed quarantine, precautions removed - no Steroids/Remdesivir (12) Hepatitis C: Plan: Reportedly was recently diagnosed and patient was scheduled to see [facility] for HepC treatment but had not seen them yet. - defer to GI: recommend outpatient f/u with hepatology (13) COPD (chronic obstructive pulmonary disease): Plan: Reportedly history of this, although not on home meds. Chronically on 2L nasal cannula at home and without extra requirements here. - PRN Duonebs - continue supplemental O2 to maintain sats >90% - consider PRN Duonebs +/- LAMA on discharge - per primary team (14) Opioid use disorder: Plan: Continue home Buprenorphine (15) Type 2 diabetes mellitus: Plan: A1c 9.8 in 02/2022. - lantus at 15U, diet ordered - SSI ordered (16) GERD (gastroesophageal reflux disease): Plan: Protonix per hospital formulary Plan FEN/GI: carb consistent pureed DVT Prophylaxis: SCDs, chemoppx contraindicated as plts <50 Code Status: full code Disposition: PCU Admission and Anticipated Discharge Date Admission Date: May 20, 2022 Supervising Physician Co-Signing Physician Notes I personally examined the patient and verified all pichardo points of history and exam, discussed case, and agree with decision making with Dr Fong. More oriented, but does not really know why he is here. Talks about wanting to go home, has not really been out of bed or worked with therapy yet. Vitals noted, in general he is awake disorientedbut yet again a little more lucid than yesterday, but appears to be in no distress. HEENT normocephalic atraumatic mucous membranes moist. Lungs are diminished but overall clear no wheezes good effort no accessory muscle use. Abdomen is soft mildly distended with a little bit of a fluid wave mild nonspecific and not exactly reproducible tenderness. Skin shows a degree of icterus. Assessment/plan - 61yo male with history of liver cirrhosis, EtOH abuse and chronic HCV presents with acute decompensated cirrhosis and hepatic encephalopathy -Appears that altered mental status is multifactorial: Hepatic encephalopathy (continue lactulose, this appears to probably be improving), and also a mixed delirium of toxic encephalopathy (medications, possibly effects from rubbing alcohol) hospital environment, also with his chronic alcohol abusecontinue thiamine at Wernicke type dosing given the possibility, and the relatively benign nature of empiric treatmentcontinue reorientation and supportive care -Unable to get paracentesis yetempiric ceftriaxone to continue, should be on to get para tomorrow -Prednisolone initiated for MDF score of 81, continue and continue to reassess -Is a bit of a pleasant surprise, his INR did improve from 2.72.0 with vitamin K and today is 1.8 -Continue Propranolol and Spironolactone -Consider diagnostic/therapeutic paracentesis -Monitor renal function Rubbing alcohol injectionfortunately no bacteremia from injection use, and no metabolic acidosiswe were just informed of this today, he has been in the hospital for quite some time. Chronic respiratory failure with hypoxiachronic O2 use. Goal pulse ox appears to be most appropriate to be about 88-92% Otherwise as above, dispo pending further input from PT/OT and further progress, but fortunately he does seem to be showing some improvement Subjective Patient seen at bedside, awake speaking sentences. He states he is in pain in his sinuses, when asked to point to his pain he indicates his abdomen. States he had a bowel movement recently. He is able to identify he is in [place] and the year in 2022, unable to identify month. Patient has requested to eat food. Denies SOB. Review of Systems Review of Systems: All systems reviewed & are unremarkable except as noted in HPI & below Physical Exam Constitutional: + altered mental status, + disheveled and comfortable Eyes: PERRL, conjunctivae normal, anicteric sclerae ENMT: external ear and nose normal, oropharynx normal Neck: trachea midline, no thyromegaly Respiratory: normal respiratory effort, lungs clear to auscultation Cardiovascular: Rate/Rhythm: regular rate and regular rhythm Gastrointestinal (Abdomen): Inspection/Auscultation: + abdomen distended Percussion/Palpation: + abdomen tender and abdomen soft Skin: no rashes, warm and dry Results & Data Results & Data ([facility]) Vital Signs (Past 12 Hours) Vital Signs Temp Pulse Pulse Resp BP Pulse Ox O2 Del Method 05/25/22 03:20 36.6 C 74 18 123/70 92 Nasal Cannula 05/24/22 22:00 66 05/24/22 23:46 36.6 C 70 20 123/74 93 Nasal Cannula 05/24/22 19:59 36.6 C 88 18 143/80 H 91 Nasal Cannula O2 Flow Rate 05/25/22 03:20 3 05/24/22 22:00 05/24/22 23:46 2 05/24/22 19:59 2 Resident Activity Tracking Resident Involvement: Resident Care Provided Care Provided: Adult Hospital Medicine
[2022-05-25 07:43] LABS: Hematocrit (blood only) 32.3 % (40.1-51.0); Platelet Count 40 K/uL (130-400); White Blood Count 3.77 K/ul (4.8-10.8)
[2022-05-25 08:07] LABS: Albumin Globulin Ratio 0.6 (0.9-2); Albumin Level 2.5 gm/dl (3.4-5.0); BUN Creatinine Ratio 20.4 (10-20); Bilirubin,Total 3.5 mg/dl (0.2-1.0); Calcium 7.6 mg/dl (8.5-10.1); Est GFR (Non-African American) 70.8 ml/min; Globulin 3.9 gm/dl (2.5-4.0); Magnesium 1.5 mg/dl (1.7-2.4); Potassium 3.2 mmol/L (3.5-5.1); Total Protein 6.4 gm/dl (6.0-8.3)
[2022-05-25 08:15] LABS: Mean Corpuscular Hemoglobin 31.3 pg (25.0-34.0); Mean Corpuscular Hgb Conc 34.1 g/dL (32.0-36.0); Mean Corpuscular Volume 91.8 fL (80.0-100.0); RDW Coefficient of Variation 21.9 % (11.5-14.5); RDW Standard Deviation 71.7 fL (36.4-46.3); Red Blood Count 3.52 M/uL (4.63-6.08)
[2022-05-25 08:16] LABS: INR 1.8 (0.9-1.1); Partial Thromboplastin Ratio 1.2; Partial Thromboplastin Time 32.5 Seconds (21.0-31.0); Prothrombin Time 18.2 Seconds (9.0-12.0)
[2022-05-25] MEDS: ZINC SULFATE 220 MG CAPSULE PO SCH (08:18)
[2022-05-25] MEDS: PANTOprazole 40 MG TAB PO SCH ×2 (08:18→21:45)
[2022-05-25] MEDS: rifAXIMin 550 MG TABLET PO SCH ×2 (08:18→21:48)
[2022-05-25] MEDS: SPIRONOLACTONE 25 MG TAB PO SCH (08:19)
[2022-05-25] MEDS: ASPIRIN 81 MG ECTAB PO SCH (08:19)
[2022-05-25] MEDS: PROPRANOLOL HCL 10 MG TAB PO SCH ×2 (08:20→21:46)
[2022-05-25] MEDS: FOLIC ACID 1 MG TAB PO SCH (08:20)
[2022-05-25] MEDS: prednisoLONE sod phosphate 15 MG/5 ML PO SCH (08:21)
[2022-05-25] MEDS: LACTULOSE SYRUP 20 GM/30 ML UDC PO SCH ×4 (08:22→21:44)
[2022-05-25] MEDS: MAGNESIUM OXIDE 400 MG TAB PO SCH ×3 (08:24→21:45)
[2022-05-25] MEDS ORDERED: IBUPROFEN 600 MG TAB PO PRN (08:54)
[2022-05-25] MEDS ORDERED: LANTUS PER UNIT CHARGE SQ SCH (09:00)
[2022-05-25] MEDS: buprenorphine HCL 8 MG SUBL SL SCH ×3 (09:02→21:59)
[2022-05-25] MEDS ORDERED: POTASSIUM CHLORIDE CRTAB 20 MEQ TABCR PO ONE (12:32)
[2022-05-25] MEDS: cefTRIAXone SODIUM 2,000 MG in DEXTROSE 5% 50 ML IV SCH (12:32)
[2022-05-25] MEDS: ALFUZOSIN HCL 10 MG TAB PO SCH (16:56)
--- NOTE | 2022-05-25 18:21 | Billing Data ---
Date of Service May 25, 2022 Coding Level of Care Code 16675 SUB INP/OBS CARE MIN
[2022-05-26] MEDS: THIAMINE HCL 500 MG in SODIUM CHLORIDE 0.9% 50 ML IV SCH ×2 (00:49→08:16)
[2022-05-26 06:13] LABS: Hematocrit (blood only) 28.6 % (40.1-51.0); Hemoglobin 10.1 g/dl (14.0-18.0); Mean Corpuscular Hgb Conc 35.3 g/dL (32.0-36.0); Mean Corpuscular Volume 90.5 fL (80.0-100.0); Mean Platelet Volume 11.9 fL (9.4-12.4); Platelet Count 34 K/uL (130-400); RDW Coefficient of Variation 21.9 % (11.5-14.5); RDW Standard Deviation 70.6 fL (36.4-46.3); Red Blood Count 3.16 M/uL (4.63-6.08); White Blood Count 3.94 K/ul (4.8-10.8)
[2022-05-26 06:16] LABS: INR 1.9 (0.9-1.1); Partial Thromboplastin Ratio 1.2; Partial Thromboplastin Time 33.9 Seconds (21.0-31.0); Prothrombin Time 19.4 Seconds (9.0-12.0)
[2022-05-26 06:26] LABS: Albumin Globulin Ratio 0.6 (0.9-2); Albumin Level 2.3 gm/dl (3.4-5.0); BUN Creatinine Ratio 22.6 (10-20); Bilirubin,Total 3.2 mg/dl (0.2-1.0); Calcium 7.4 mg/dl (8.5-10.1); Creatinine Clr Calc Pharmacy 86.6 ml/min; Est GFR (African American) 80.3 ml/min; Est GFR (Non-African American) 69.3 ml/min; Globulin 3.8 gm/dl (2.5-4.0); Magnesium 1.5 mg/dl (1.7-2.4); Potassium 3.1 mmol/L (3.5-5.1); Total Protein 6.1 gm/dl (6.0-8.3)
--- NOTE | 2022-05-26 07:12 | Hospitalist Progress Note ---
Date of Service May 26, 2022 Assessment & Plan (1) Hepatic encephalopathy: Plan: Completely disoriented and aggressive on admit, given Haldol x2 and Ativan x2. Ammonia 116 --> Hepatic encephalopathy. - s/p Lactulose 30gm PO in ED on 05/20 - continue with 20gm PO QID and aim for 4-5 BMs per day - consult GI - appreciate recs: Started zinc sulfate, rifaximin; withhold diuretics. - resumed diet -soft restraints discontinued Abdominal Pain -started empiric ceftriaxone 2g daily on 05/22 for 5 days for possible SBP -Patient's labs prevent him from obtaining paracentesis at [facility] at this time Urethral Trauma -patient pulled out robertson 05/22 with bleeding and clots -robertson reinserted, would prefer it be in place for 2 weeks before removal with PCP or urology (2) Acute hepatitis: Plan: AST 282/ALT 56/TBili 7.0/INR 2.8/PT 28.1, significantly elevated in comparison to previous LFTs earlier this month. BAL negative on admission but patient reportedly has a significant alcohol abuse history. Suspect alcoholic hepatitis. - CT A/P= Cirrhosis with manifestations of portal hypertension including splenomegaly, varices formation and moderate ascites. Increase in marked hetero geneity of the liver. No change in gallbladder distention. Cholelithiasis. No bowel obstruction. Lower lung airspace opacities which could reflect atelectasis or an infectious process. Suspected mild interstitial pulmonary edema. No change in distal esophageal wall thickening. This may reflect esophagitis. - Maddrey's discriminant score is 81.1 - continue Prednisolone 40mg PO daily - GI consulted as stated above -will obtain lille score tomorrow (3) Alcoholic cirrhosis of liver: Plan: Chronic diagnosis, with high possibility that patient is still using alcohol although current history is limited (BAL negative on presentation). Previously MELD was 28 in 03/2022 (likely was falsely elevated due to RODRIGO at the time). Currently MELD score 20 - GI consulted as stated above - continue home Propranolol and Spironolactone - trend MELD labs daily - patient may need to be transferred to tertiary care center if continues to decompensate (4) Abdominal distension: Plan: Reportedly has been present on previous admissions, with previous CT scans sh owing ascites in this patient with known cirrhosis. No abdominal pain on exam, and patient does not apear toxic, although exam is limited due to patient's AMS. - CT A/P consistent with cirrhosis with portal hypertension, varices, and moderate ascites. - UDS positive for benzodiazepines. Ethyl alcohol less than 10. (5) Lower extremity edema: Plan: Significant bilateral LE pitting edema. Likely due to hepatic congestion in setting of cirrhosis/hepatitis. Patient uses 2L supplemental O2 chronically without increased requirement. Lungs clear on exam. Do not suspect pulmonary edema. - trend clinically -Hold Lasix at this time per GI. - strict I/Os (robertson placed in ED), daily weights (6) RODRIGO (acute kidney injury): Plan: Cr 0.98 today. Improved. baseline 0.8 - 1.0. Suspect mild pre-renal injury in context of above. - s/p NSS 500cc bolus in ED - trend BMP (7) Hypokalemia: Plan: K 2.7 today, EKG with chronic QTc elevation at 505ms but no other abnormalities. - repleted as necessary - trend (8) Hypomagnesemia: Plan: -Mg at 1.3, but was still receiving repletion at the time this value was taken -trend (9) Alcohol use: Plan: BAL negative here, but with significant past alcohol abuse history. Was agitated on presentation and is now s/p Haldol 10mg and Ativan 2mg. Currently calm without symptoms of withdrawal. - AWSS protocol, ativan discontinued given likely his symptoms are hepatic encephalopathy - repleting thiamine in case of contribution of thiamine deficiency to ongoing delirium - encourage cessation (10) Pancytopenia: Plan: WBC 3.22/Hgb 11/plts 32 - at chronic baseline. No signs active bleeding. Likely due to alcohol abuse and cirrhosis. - trend daily - avoid DVT ppx due to plts <50 (11) COVID-19: Plan: Reportedly positive 8 days ago, and again positive in ED today. Unable to obtain history but patient is on chronic 2L supplemental O2, lungs are clear and he does not appear to be symptomatic. - completed quarantine, precautions removed - no Steroids/Remdesivir (12) Hepatitis C: Plan: Reportedly was recently diagnosed and patient was scheduled to see [facility] for HepC treatment but had not seen them yet. - defer to GI: recommend outpatient f/u with hepatology (13) COPD (chronic obstructive pulmonary disease): Plan: Reportedly history of this, although not on home meds. Chronically on 2L nasal cannula at home and without extra requirements here. - PRN Duonebs - continue supplemental O2 to maintain sats >90% - consider PRN Duonebs +/- LAMA on discharge - per primary team (14) Opioid use disorder: Plan: Continue home Buprenorphine (15) Type 2 diabetes mellitus: Plan: A1c 9.8 in 02/2022. - lantus at 20U BID, diet ordered - SSI ordered (16) GERD (gastroesophageal reflux disease): Plan: Protonix per hospital formulary Plan FEN/GI: carb consistent pureed DVT Prophylaxis: SCDs, chemoppx contraindicated as plts <50 Code Status: full code Disposition: PCU Admission and Anticipated Discharge Date Admission Date: May 20, 2022 Supervising Physician Co-Signing Physician Notes I personally examined the patient and verified all pichardo points of history and exam, discussed case, and agree with decision making with Dr Fong. oriented, wants to go home. expresses good understanding of what we are concerned about but wants to go home anyway. lives alone sister [place] notes that he does not want us callign his sister. Vitals noted, in general he is awake/alert/oriented nad. HEENT normocephalic atraumatic mucous membranes moist. breathing unlabored no accessory muscles good effort. gait slow, slightly wide based but stable with cane - walks around the room and notes that this is near his baseline. Assessment/plan - 61yo male with history of liver cirrhosis, EtOH abuse and c hronic HCV presents with acute decompensated cirrhosis and hepatic encephalopathy -Appears that altered mental status is multifactorial: Hepatic encephalopathy (continue lactulose, this appears to probably be improving), and also a mixed delirium of toxic encephalopathy (medications, possibly effects from rubbing alcohol) hospital environment, also with his chronic alcohol abusecontinue thiamine at [place] type dosing given the possibility, and the relatively benign nature of empiric treatmentnow lucid and doing better -Unable to get paracentesis - finish empiric abx -Prednisolone initiated for MDF score of 81, continue and continue to reassess - next score tomorrow -Is a bit of a pleasant surprise, his INR did improve with vitamin K -Continue Propranolol and Spironolactone -improved - overall safe for outpatient follo wup Rubbing alcohol injectionfortunately no bacteremia from injection use, and no metabolic acidosiswe were just informed of this today, he has been in the hospital for quite some time. Chronic respiratory failure with hypoxiachronic O2 use. Goal pulse ox appears to be most appropriate to be about 88-92% Otherwise as above, dispo - d/w pt frankly that i would feel safer that he go to rehab but since he has capacity he will be able to make own choices. would like to recalculate for steroids, and then likely home tomorrow w close outpt f/u Subjective Patient seen at bedside, calm comfortable cooperative. This morning patient able to identify place, year and month, states he wants to go home. Questioned patient regarding obtaining a diagnostic and therapeutic paracentesis to assess for infection and relieve pain, patient states he doesn't have an infection "because he's smart". Patient states he lives with his sister who cares for him, has an AA sponser who is 'keeping him on track'. states he has been off of alcohol smoking and injectable drugs for a while now. Patient able to shift in bed, states he wants to leave within an hour. 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 Patient able to demonstrate walking with a cane. He asked if he can have his catheter removed and understands it is there to let his penis heal after traumatic injury. Patient understands he needs to continue lactulose to prevent confusion. When asked about rehab, patient states he did not want physical therapy because he felt it did not help. When asked that his sister prefers he go to physical therapy because she does not feel able to care for him, he states the hospital does not have permission to share his information with her. Patient repeats he would like to go home, but is willing to stay overnight to be monitored. Review of Systems Review of Systems: All systems reviewed & are unremarkable except as noted in HPI & below Physical Exam Constitutional: + disheveled, cooperative and comfortable Eyes: PERRL, conjunctivae normal, anicteric sclerae ENMT: external ear and nose normal, oropharynx normal Neck: trachea midline, no thyromegaly Respiratory: normal respiratory effort, lungs clear to auscultation Cardiovascular: Rate/Rhythm: regular rate and regular rhythm Gastrointestinal (Abdomen): Inspection/Auscultation: + abdomen distended Percussion/Palpation: + abdomen tender and abdomen soft Musculoskeletal: Able to walk with cane Skin: no rashes, warm and dry Results & Data Results & Data ([facility]) Vital Signs (Past 12 Hours) Vital Signs Temp Pulse Pulse Resp BP Pulse Ox O2 Del Method 05/26/22 04:30 36.4 C L 56 L 19 114/65 92 Nasal Cannula 05/26/22 04:14 74 05/25/22 21:10 Nasal Cannula 05/25/22 23:12 36.9 C 70 19 138/75 94 Nasal Cannula 05/25/22 21:30 70 117/65 O2 Flow Rate 05/26/22 04:30 1 05/26/22 04:14 05/25/22 21:10 1 05/25/22 23:12 1 05/25/22 21:30 Resident Activity Tracking Resident Involvement: Resident Care Provided Care Provided: Adult Hospital Medicine
[2022-05-26] MEDS: PANTOprazole 40 MG TAB PO SCH ×2 (08:16→19:52)
[2022-05-26] MEDS: SPIRONOLACTONE 25 MG TAB PO SCH (08:16)
[2022-05-26] MEDS: FOLIC ACID 1 MG TAB PO SCH (08:16)
[2022-05-26] MEDS: ASPIRIN 81 MG ECTAB PO SCH (08:17)
[2022-05-26] MEDS: rifAXIMin 550 MG TABLET PO SCH ×2 (08:17→19:51)
[2022-05-26] MEDS: PROPRANOLOL HCL 10 MG TAB PO SCH ×2 (08:17→19:52)
[2022-05-26] MEDS: ZINC SULFATE 220 MG CAPSULE PO SCH (08:17)
[2022-05-26] MEDS: MAGNESIUM OXIDE 400 MG TAB PO SCH ×3 (08:18→19:52)
[2022-05-26] MEDS: prednisoLONE sod phosphate 15 MG/5 ML PO SCH (08:18)
[2022-05-26] MEDS: LANTUS PER UNIT CHARGE SQ SCH (08:32)
[2022-05-26] MEDS: INSULIN ASPART PER UNIT SC SCH ×4 (08:32→20:34)
[2022-05-26] MEDS: buprenorphine HCL 8 MG SUBL SL SCH ×3 (08:35→20:04)
[2022-05-26] MEDS: LACTULOSE SYRUP 20 GM/30 ML UDC PO SCH (08:40)
[2022-05-26] MEDS ORDERED: PHYTONADIONE 5 MG TAB PO STA (08:46)
[2022-05-26] MEDS: LACTULOSE SYRUP 30 GM/45 ML UDP PO SCH ×3 (11:59→19:51)
[2022-05-26] MEDS ORDERED: LACTULOSE SYRUP 10 GM/15 ML BTL 960 ML PO SCH (13:00)
[2022-05-26] MEDS: cefTRIAXone SODIUM 2,000 MG in DEXTROSE 5% 50 ML IV SCH (13:05)
[2022-05-26] MEDS: ALFUZOSIN HCL 10 MG TAB PO SCH (16:30)
--- NOTE | 2022-05-26 19:16 | Billing Data ---
Date of Service May 26, 2022 Coding Level of Care Code 55124 SUB INP/OBS CARE MIN
[2022-05-26] MEDS: DICLOFENAC SOD 1% GEL 100 GM TUBE EXT SCH (19:52)
[2022-05-27 07:07] LABS: INR 1.9 (0.9-1.1); Partial Thromboplastin Ratio 1.1; Partial Thromboplastin Time 31.4 Seconds (21.0-31.0); Prothrombin Time 19.3 Seconds (9.0-12.0)
[2022-05-27 07:21] LABS: Hematocrit (blood only) 28.4 % (40.1-51.0); Mean Corpuscular Hemoglobin 31.9 pg (25.0-34.0); Mean Corpuscular Hgb Conc 35.2 g/dL (32.0-36.0); Mean Corpuscular Volume 90.7 fL (80.0-100.0); Platelet Count 27 K/uL (130-400); RDW Coefficient of Variation 21.3 % (11.5-14.5); RDW Standard Deviation 68.9 fL (36.4-46.3); Red Blood Count 3.13 M/uL (4.63-6.08)
[2022-05-27 07:22] LABS: Albumin Globulin Ratio 0.6 (0.9-2); Albumin Level 2.3 gm/dl (3.4-5.0); BUN Creatinine Ratio 22.1 (10-20); Bilirubin,Total 3.6 mg/dl (0.2-1.0); Calcium 7.4 mg/dl (8.5-10.1); Creatinine Clr Calc Pharmacy 95.2 ml/min; Est GFR (African American) 90.7 ml/min; Est GFR (Non-African American) 78.2 ml/min; Globulin 3.7 gm/dl (2.5-4.0); Magnesium 1.5 mg/dl (1.7-2.4); Potassium 3.1 mmol/L (3.5-5.1)
[2022-05-27] MEDS: MAGNESIUM SULFATE / D5W 1 GM/100 ML BAG IV SCH ×2 (07:45→09:29)
[2022-05-27] MEDS: rifAXIMin 550 MG TABLET PO SCH (07:48)
[2022-05-27] MEDS: buprenorphine HCL 8 MG SUBL SL SCH (07:48)
[2022-05-27] MEDS: PANTOprazole 40 MG TAB PO SCH (07:49)
[2022-05-27] MEDS: MAGNESIUM OXIDE 400 MG TAB PO SCH (07:49)
[2022-05-27] MEDS: FOLIC ACID 1 MG TAB PO SCH (07:50)
[2022-05-27] MEDS: prednisoLONE sod phosphate 15 MG/5 ML PO SCH (07:51)
[2022-05-27] MEDS: ASPIRIN 81 MG ECTAB PO SCH (07:51)
[2022-05-27] MEDS: PROPRANOLOL HCL 10 MG TAB PO SCH (07:51)
[2022-05-27] MEDS: SPIRONOLACTONE 25 MG TAB PO SCH (07:51)
[2022-05-27] MEDS: LACTULOSE SYRUP 30 GM/45 ML UDP PO SCH (07:51)
[2022-05-27] MEDS: ZINC SULFATE 220 MG CAPSULE PO SCH (07:51)
[2022-05-27] MEDS: DICLOFENAC SOD 1% GEL 100 GM TUBE EXT SCH (07:52)
[2022-05-27] MEDS: INSULIN ASPART PER UNIT SC SCH (07:57)
[2022-05-27] MEDS: LANTUS PER UNIT CHARGE SQ SCH (07:58)
--- NOTE | 2022-05-27 08:19 | Hospitalist Progress Note ---
Date of Service May 27, 2022 Assessment & Plan (1) Hepatic encephalopathy: Plan: Completely disoriented and aggressive on admit, given Haldol x2 and Ativan x2. Ammonia 116 --> Hepatic encephalopathy. - s/p Lactulose 30gm PO in ED on 05/20 - continue with 20gm PO QID and aim for 4-5 BMs per day - consult GI - appreciate recs: Started zinc sulfate, rifaximin; withhold diuretics. - resumed diet -soft restraints discontinued Abdominal Pain -started empiric ceftriaxone 2g daily on 05/22 for 5 days for possible SBP -Patient's labs prevent him from obtaining paracentesis at [facility] at this time Urethral Trauma -patient pulled out robertson 05/22 with bleeding and clots -robertson reinserted, would prefer it be in place for 2 weeks before removal with PCP or urology (2) Acute hepatitis: Plan: AST 282/ALT 56/TBili 7.0/INR 2.8/PT 28.1, significantly elevated in comparison to previous LFTs earlier this month. BAL negative on admission but patient reportedly has a significant alcohol abuse history. Suspect alcoholic hepatitis. - CT A/P= Cirrhosis with manifestations of portal hypertension including splenomegaly, varices formation and moderate ascites. Increase in marked hetero geneity of the liver. No change in gallbladder distention. Cholelithiasis. No bowel obstruction. Lower lung airspace opacities which could reflect atelectasis or an infectious process. Suspected mild interstitial pulmonary edema. No change in distal esophageal wall thickening. This may reflect esophagitis. - Maddrey's discriminant score is 81.1 - continue Prednisolone 40mg PO daily - GI consulted as stated above -will obtain lille score tomorrow (3) Alcoholic cirrhosis of liver: Plan: Chronic diagnosis, with high possibility that patient is still using alcohol although current history is limited (BAL negative on presentation). Previously MELD was 28 in 03/2022 (likely was falsely elevated due to RODRIGO at the time). Currently MELD score 20 - GI consulted as stated above - continue home Propranolol and Spironolactone - trend MELD labs daily - patient may need to be transferred to tertiary care center if continues to decompensate (4) Abdominal distension: Plan: Reportedly has been present on previous admissions, with previous CT scans sh owing ascites in this patient with known cirrhosis. No abdominal pain on exam, and patient does not apear toxic, although exam is limited due to patient's AMS. - CT A/P consistent with cirrhosis with portal hypertension, varices, and moderate ascites. - UDS positive for benzodiazepines. Ethyl alcohol less than 10. (5) Lower extremity edema: Plan: Significant bilateral LE pitting edema. Likely due to hepatic congestion in setting of cirrhosis/hepatitis. Patient uses 2L supplemental O2 chronically without increased requirement. Lungs clear on exam. Do not suspect pulmonary edema. - trend clinically -Hold Lasix at this time per GI. - strict I/Os (robertson placed in ED), daily weights (6) RODRIGO (acute kidney injury): Plan: Cr 0.98 today. Improved. baseline 0.8 - 1.0. Suspect mild pre-renal injury in context of above. - s/p NSS 500cc bolus in ED - trend BMP (7) Hypokalemia: Plan: K 2.7 today, EKG with chronic QTc elevation at 505ms but no other abnormalities. - repleted as necessary - trend (8) Hypomagnesemia: Plan: -Mg at 1.3, but was still receiving repletion at the time this value was taken -trend (9) Alcohol use: Plan: BAL negative here, but with significant past alcohol abuse history. Was agitated on presentation and is now s/p Haldol 10mg and Ativan 2mg. Currently calm without symptoms of withdrawal. - AWSS protocol, ativan discontinued given likely his symptoms are hepatic encephalopathy - repleting thiamine in case of contribution of thiamine deficiency to ongoing delirium - encourage cessation (10) Pancytopenia: Plan: WBC 3.22/Hgb 11/plts 32 - at chronic baseline. No signs active bleeding. Likely due to alcohol abuse and cirrhosis. - trend daily - avoid DVT ppx due to plts <50 (11) COVID-19: Plan: Reportedly positive 8 days ago, and again positive in ED today. Unable to obtain history but patient is on chronic 2L supplemental O2, lungs are clear and he does not appear to be symptomatic. - completed quarantine, precautions removed - no Steroids/Remdesivir (12) Hepatitis C: Plan: Reportedly was recently diagnosed and patient was scheduled to see [facility] for HepC treatment but had not seen them yet. - defer to GI: recommend outpatient f/u with hepatology (13) COPD (chronic obstructive pulmonary disease): Plan: Reportedly history of this, although not on home meds. Chronically on 2L nasal cannula at home and without extra requirements here. - PRN Duonebs - continue supplemental O2 to maintain sats >90% - consider PRN Duonebs +/- LAMA on discharge - per primary team (14) Opioid use disorder: Plan: Continue home Buprenorphine (15) Type 2 diabetes mellitus: Plan: A1c 9.8 in 02/2022. - lantus at 20U BID, diet ordered - SSI ordered (16) GERD (gastroesophageal reflux disease): Plan: Protonix per hospital formulary Plan FEN/GI: carb consistent pureed DVT Prophylaxis: SCDs, chemoppx contraindicated as plts <50 Code Status: full code Disposition: PCU Admission and Anticipated Discharge Date Admission Date: May 20, 2022 Results & Data Results & Data ([facility]) Vital Signs (Past 12 Hours) Vital Signs Temp Pulse Pulse Resp BP Pulse Ox O2 Del Method 05/27/22 07:52 36.8 C 53 L 20 104/51 L 94 Nasal Cannula 05/27/22 04:33 36.8 C 50 L 18 105/60 95 Nasal Cannula 05/27/22 01:44 67 05/26/22 23:25 36.4 C L 60 18 118/66 92 Room Air 05/26/22 20:30 Nasal Cannula O2 Flow Rate 05/27/22 07:52 1 05/27/22 04:33 2 05/27/22 01:44 05/26/22 23:25 05/26/22 20:30 1
[2022-05-27] MEDS ORDERED: THIAMINE HCL 250 MG in SODIUM CHLORIDE 0.9% 50 ML IV SCH (09:00)
--- NOTE | 2022-05-27 11:27 | Discharge Summary ---
Date of Service May 27, 2022 Admission HPI Per Admitting Provider Chuck Gonzalez is a 61yo male with PMHx significant for cirrhosis, chronic hepatitis C, alcohol abuse, IV drug abuse, OUD on Suboxone, AAA, GERD, T2DM (A1c 9.8 in 02/2022), COPD (on 2L O2 chronically at home), ELINA, and HTN. He presented to [facility] ED on 05/20 for AMS. He was reportedly walking naked around the halls of his apartment building, covered in feces. Reportedly tested positive for COVID- 19 8 days ago. Remainder of history limited due to AMS. He was severely agitated in ED requiring Haldol/Ativan. Patient was recently admitted here from 04/15 - 04/20 for multifactorial encephalopathy 2/2 to hepatic encephalopathy and ?opiate/gabapentin OD. In the ED the patient was afebrile and hemodynamically stable on 2-3L/min nasal cannula. Labs significant for WBC 3.22/Hgb 11/plts 32 (all chronic baseline). K 2.4 (from 3.6 on 04/21), Cr 1.48 (baseline 0.8-1). TBili 7 (up from 2.4 on 04/21), AST 282/ALT 56 (up from 75/31 on 04/21), ALP 131 (up from 74 on 04/21). NH3 116 (up from 94 on 04/19), Albumin 2.8. EKG NSR 88bpm with QTc 505. BAL negative. COVID-[address] head w/o contrast without acute abnormalities. In ED patient was given Lactulose 20gm PO x1, Ativan 1mg IV x2, Haldol 5mg IV x2, k-rider x2, kcl 40mEq PO x1, thiamine 100mg IV x1, and Folate 1mg IV x1. Also received NSS 500cc bolus. Admission Exam Per Admitting Provider General: Not alert and oriented. Cooperative. NAD. HEENT: Atraumatic, normocephalic. Pulm: CTAB A&P. -wheezes, -rales, -rhonchi. Symmetrical chest rise. No increase work of breathing. No respiratory distress. Cardiac: RRR, -mrg. Radial pulses intact and symmetrical. 3+ pitting edema bilaterally to knees. No JVD. Abdominal: moderately distended with +fluid wave and hepatomegaly, non-tender although difficult exam in this sense due to AMS, NA BS x 4 Skin: warm, dry, no rash Principal Diagnosis Hepatic encephalopathy Discharge Exam Constitutional: + disheveled, cooperative and comfortabl e Eyes: PERRL, conjunctivae normal, anicteric sclerae ENMT: external ear and nose normal, oropharynx normal Neck: trachea midline, no thyromegaly Respiratory: normal respiratory effort, lungs clear to auscultation Cardiovascular: Rate/Rhythm: regular rate and regular rhythm Gastrointestinal (Abdomen): Inspection/Auscultation: + abdomen distended Percussion/Palpation: + abdomen tender and abdomen soft Musculoskeletal: Able to walk with cane Skin: no rashes, warm and dry Discharge Data Allergies Allergy/AdvReac Type Severity Reaction Status Date / Time No Known Allergies Allergy Verified 05/20/22 19:47 Consultations 05/20/22 22:47 ED Decision to Admit Stat 05/21/22 01:36 Consult Gastroenterology Routine Ordered Studies 05/20/22 19:39 CT head/brain wo con Stat 05/20/22 23:55 CT Abd and Pelvis [CT abd pelvis IV con only] Stat Hospital Course (1) Hepatic encephalopathy: 61yo male with PMHx significant for cirrhosis, chronic hepatitis C, alcohol abuse, IV drug abuse, OUD on Suboxone, AAA, GERD, T2DM (A1c 9.8 in 02/2022), COPD (on 2L O2 chronically at home), ELINA, and HTN. He presented to [facility] ED on 05/20 for AMS. Upon discharge: -continue lactulose 20mg TID -continue Rifaxamin 550mg BID (1) Hepatic encephalopathy: Completely disoriented and aggressive on admit, given Haldol x2 and Ativan x2. Ammonia 116 - s/p Lactulose 30gm PO in ED on 05/20, escalated to lactulose 30mg QID in hospital, decreased to lactulose 20mg TID on discharge -initially placed on restraints as patient attempted to remove medical equipme nt, discontinued once mentation improved - consult GI - appreciate recs: Started zinc sulfate, rifaximin; withhold diuretics. - NPO during delirium, diet resumed when mentation improved Abdominal Pain -started empiric ceftriaxone 2g daily on 05/22 for 5 days for possible SBP -Patient's labs prevent him from obtaining paracentesis at [facility] at this time, patient refused parcentesis Urethral Trauma -patient pulled out robertson 1/2 with bleeding and clots -robertson reinserted, would prefer it be in place for 2 weeks before removal with PCP or urology -urine noted to be bloody -patient insisted on leaving hospital, did not want robertson. Robertson was removed at discharge, patient to f/u with PCP Acute hepatitis: AST 282/ALT 56/TBili 7.0/INR 2.8/PT 28.1, significantly elevated in comparison to previous LFTs earlier this month. BAL negative on admission but patient reportedly has a significant alcohol abuse history. Suspect alcoholic hepatitis. - CT A/P=Cirrhosis with manifestations of portal hypertension including splenomegaly, varices formation and moderate ascites. Increase in marked heterogeneity of the liver. No change in gallbladder distention. Cholelithiasis. No bowel obstruction. Lower lung airspace opacities which could reflect atelectasis or an infectious process. Suspected mild interstitial pulmonary edema. No change in distal esophageal wall thickening. This may reflect esophagitis. - Maddrey's discriminant score is 81.1 - was started on Prednisolone 40mg PO daily. On day 7 Patient's Winchester score 0.353, would prefer patient continue with several weeks of steroids in outpatient, however given patient's untreated hepatitis C, history of IV drug usage, and concern of medication compliance will hold on steroids at this time. Alcoholic cirrhosis of liver: Chronic diagnosis, with high possibility that patient is still using alcohol although current history is limited (BAL negative on presentation). Previously MELD was 28 in 03/2022 (likely was falsely elevated due to RODRIGO at the time). Last MELD score 20 - GI consulted as stated above - continue home Propranolol and Spironolactone (4) Abdominal distension: Reportedly has been present on previous admissions, with previous CT scans showing ascites in this patient with known cirrhosis. No abdominal pain on exam, and patient does not apear toxic, although exam is limited due to patient's AMS. - CT A/P consistent with cirrhosis with portal hypertension, varices, and moderate ascites. - UDS positive for benzodiazepines. Ethyl alcohol less than 10. (5) Lower extremity edema: Significant bilateral LE pitting edema. Likely due to hepatic congestion in setting of cirrhosis/hepatitis. Patient uses 2L supplemental O2 chronically without increased requirement. Lungs clear on exam. Do not suspect pulmonary edema. -Hold Lasix at this time per GI. (6) RODRIGO (acute kidney injury): Cr 0.98 today. Improved. baseline 0.8 - 1.0. Suspect mild pre-renal injury in context of above. - s/p NSS 500cc bolus in ED (7) Hypokalemia: EKG with chronic QTc elevation at 505ms but no other abnormalities. (8) Hypomagnesemia: Replete as necessary (9) Alcohol use: BAL negative here, but with significant past alcohol abuse history. Was agitated on presentation and is now s/p Haldol 10mg and Ativan 2mg. Currently calm without symptoms of withdrawal. - Started AWSS protocol, ativan discontinued given likely his symptoms are hepatic encephalopathy - repleted thiamine in case of contribution of thiamine deficiency to ongoing delirium - encourage cessation (10) Pancytopenia: WBC 3.22/Hgb 11/plts 32 - at chronic baseline. No signs active bleeding. Likely due to alcohol abuse and cirrhosis. - avoided DVT ppx due to plts <50 (11) COVID-19: Reportedly positive 05/07, and again positive in ED today. Unable to obtain history but patient is on chronic 2L supplemental O2, lungs are clear and he does not appear to be symptomatic. - completed quarantine, precautions removed - no Steroids/Remdesivir (12) Hepatitis C: Reportedly was recently diagnosed and patient was scheduled to see [facility] GI for HepC treatment but had not seen them yet. - recommend outpatient f/u with hepatology (13) COPD (chronic obstructive pulmonary disease): Reportedly history of this, although not on home meds. Chronically on 2L nasal cannula at home and without extra requirements here. -consider duonebs/LAMA in outpatient (14) Opioid use disorder: Continue home Buprenorphine (15) Type 2 diabetes mellitus: A1c 9.8 in 02/2022. - Patient may resume home DM regime (16) GERD (gastroesophageal reflux disease): Patient may resume home medication (2) Acute hepatitis: AST 282/ALT 56/TBili 7.0/INR 2.8/PT 28.1, significantly elevated in comparison to previous LFTs earlier this month. BAL negative on admission but patient reportedly has a significant alcohol abuse history. Suspect alcoholic hepatitis. - CT A/P= Cirrhosis with manifestations of portal hypertension including splenomegaly, varices formation and moderate ascites. Increase in marked heterogeneity of the liver. No change in gallbladder distention. Cholelithiasis. No bowel obstruction. Lower lung airspace opacities which could reflect atelectasis or an infectious process. Suspected mild interstitial pulmonary edema. No change in distal esophageal wall thickening. This may reflect esophagitis. - Maddrey's discriminant score is 81.1 - continue Prednisolone 40mg PO daily - GI consulted as stated above -will obtain lille score tomorrow (3) Alcoholic cirrhosis of liver: (4) Abdominal distension: (5) Lower extremity edema: (6) RODRIGO (acute kidney injury): (7) Hypokalemia: (8) Hypomagnesemia: (9) Alcohol use: (10) Pancytopenia: (11) COVID-19: (12) Hepatitis C: (13) COPD (chronic obstructive pulmonary disease): (14) Opioid use disorder: (15) Type 2 diabetes mellitus: (16) GERD (gastroesophageal reflux disease): Total Time Total Time Spent Total Time Spent (In Minutes): see attending attestation Discharge Plan Discharge Items Patient Disposition: Home - Self-Care Reason For Visit: HEPATIC ENCEPHALOPATHY Discharge Diagnosis: Hepatic Encephalopathy Activity: Resume your previous activity Non-emergency contact: Primary Care Provider and Reprographics Associate Call non-emergency contact if: you have any medication questions, your symptoms worsen and your pain is concerning for you Follow-up/Referrals: Tyrell Gomez MD [Physician] - Bobby Leslie MD [Primary Care Provider] - Diet: Carb Consistent or DM2 Ambulatory Orders: Complete Blood Count with Diff (Routine) Timeframe: 2 Days Location: Determined by Patient Ordered By: Tiffanie Fong Comprehensive Metabolic Panel (Routine) Timeframe: 2 Days Location: Determined by Patient Ordered By: Tiffanie Fong Prothrombin Time INR (Routine) Timeframe: 2 Days Location: Determined by Patient Ordered By: Tiffanie Fong Addtl Attending Provider Instructions: You were admitted to the hospital for hepatic encephalopathy, where due to injury to your liver you accumulated too many toxins and became confused and lethargic. You were treated with medications to reduce your toxin level, which was excreted via diarrhea. We will require you to follow up with your PCP on Sunday for repeat lab work to ensure your liver continues to recover. While at home, we highly recommend you discontinue all forms of alcohol and injectable drugs. Your liver can recover from many injuries, but too many will land you back in the hospital in the same confused state you were in before, and it will not always be reversible. You injured your penis by forcefully pulling out a urinary catheter. While typically we would leave the catheter in place for 2 weeks to allow your penis to fully heal, we can let you go home without a robertson so long as you maintain close follow up with your PCP. Please avoid any cuts, bruises, or injuries during this time. Due to your liver injury, your body is not able to stop bleeding as fast as it normally can. Taking your medication as prescribed and avoiding further alcohol can help improve your liver function. You have untreated Hepatitis C. Please follow up with Gastroenterology to begin treatment of your hepatitis before it does further damage to your liver. A discharge summary will be sent to your primary care physician to ensure continuity of care. Please bring this discharge summary with you to your next office appointment so that your provider can review it at that time. Follow-up appointments: Make a follow-up appointment with your PCP on Sunday. It is very important that you follow up with them shortly after discharge from the hospital. We have arranged a follow up for your with gastroenterology. Keep all your follow-up appointments as already scheduled. If you cannot make an appointment, notify your provider. Medications: Your medication list has been reviewed and reconciled upon discharge to ensure accuracy and continuity of care. An updated list of all your medications is included with your hospital discharge paperwork. Please review this list closely, and make note of any changes. * We sent a new medication called Lactulose to your pharmacy. Take Lactulose 20mg one tablet three times a day. This will cause you diarrhea. The diarrhea is necessary to remove the toxins in your body that your liver can no longer process effectively. Should you stop this medication, you will likely become confused again. * We sent a new medication called Rifaximin to your pharmacy. Take Rifaximin 550mgone tablet twice a day. This medication also assists in clearing toxins from your blood stream. Take your medications as instructed; do not skip a dose of your medicines. Make sure all of your doctors know every medicine you are taking (including lwsz-ozi-bnxtzpo medicines, vitamins, and supplements). Call your primary care provider before taking any new medicines (including nftg-lkg-jogceom medicines, vitamins, and supplements), because some of these may interact with your current medications, or may make your symptoms worse. Tell your primary care provider if you cannot afford your medications. CONTACT YOUR PRIMARY CARE PROVIDER if you experience any of the following: Increased lethargy, difficulty breathing Fever, increased confusion Difficulty following your treatment plan, or difficulty taking medications CALL 911 OR GO TO THE EMERGENCY DEPARTMENT if you experience any of the following: Sudden, severe abdominal pain or nausea/vomiting Severe chest pain, or chest pain that radiates (moves) to your jaw or arm Sudden, severe shortness of breath or difficulty breathing Thank you for allowing us to participate in your care. Pending Studies at Discharge: No Stand-Alone Forms: My [facility] [employer], Smoking Cessation Medications and DC Order Prescriptions: New Xifaxan 550 mg Tablet 550 mg PO BID 30 Days Qty: 60 0RF Continued alfuzosin 10 mg tablet extended release 24 hr 10 mg PO DAILY Qty: 30 2RF Rx Instructions: administer after the same meal each day insulin lispro [Humalog U-100 Insulin] 100 unit/mL Solution 30 unit SUBCUT TIDM insulin glargine [Lantus Solostar U-100 Insulin] 100 unit/mL (3 mL) Insulin Pen 80 unit SUBCUT BID omeprazole 20 mg capsule,delayed release(DR/EC) 20 mg PO BID ondansetron HCl 4 mg tablet 4 mg PO BID PRN (Reason: Nausea And Vomiting) lidocaine 5 % ointment 1 applic topical QID PRN (Reason: Pain) Rx Instructions: apply to affected area ipratropium-albuterol 0.5 mg-3 mg(2.5 mg base)/3 mL solution for nebulization 3 ml INHALATION QID PRN (Reason: Shortness Of Breath Or Wheezing) aspirin [Chavo Low Dose Aspirin] 81 mg Tablet,Delayed Release (Dr/Ec) 81 mg PO DAILY buprenorphine HCl 8 mg tablet, sublingual 8 mg SUBLINGUAL TID thiamine HCl (vitamin B1) 100 mg Tablet 100 mg PO QAM Qty: 30 0RF gabapentin 250 mg/5 mL Solution 200 mg PO TID Qty: 60 0RF spironolactone 25 mg Tablet 50 mg PO QAM Qty: 30 0RF propranolol 10 mg Tablet 10 mg PO BID Qty: 60 0RF magnesium oxide 400 mg (241.3 mg magnesium) Tablet 400 mg PO TID Qty: 90 0RF folic acid 1 mg Tablet 1 mg PO QAM Qty: 30 0RF lactulose 20 gram/30 mL Solution 20 g PO TID Qty: 60 0RF Discharge Orders: Discharge Order (Routine); Ordered 05/27/22 Ordered By: Tiffanie Fong Admission Data Admit Date/Time: 05/20/22 23:54 Attending Provider: Lencho Prasad Admit Provider: Rocky Forrest Primary Care Provider: Bobby Leslie Other Providers: Tracey Leger ; Tyrell Gomez ; José Neri ; Ninoska Rubio Other Interventions: Discharge Summary Assessment (RN) Last Done: 05/27/22 11:28 Supervising Physician Co-Signing Physician Notes I personally examined the patient and verified all pichardo points of history and exam, discussed case, and agree with decision making with Dr Fong. Wants to go home, has capacity. We have an extensive discussion about follow-up/follow-through, and plans and he expresses understanding. Vitals noted, in general he is awake/alert/oriented nad. HEENT normocephalic atraumatic mucous membranes moist. breathing unlabored no accessory muscles good effort. Cranial nerves II through XII grossly intact gross motor and sensory intact Assessment/plan - 61yo male with history of liver cirrhosis, EtOH abuse and chronic HCV presents with acute decompensated cirrhosis and hepatic encephalopathy -Appears that altered mental status is multifactorial: Hepatic encephalopathy (continue lactulose, this appears to probably be improving), and also a mixed delirium of toxic encephalopathy (medications, possibly effects from rubbing alcohol) hospital environment, also with his chronic alcohol abusecontinue thiamine at higher dosing dosing given the possibilit of deficiency, and the relatively benign nature of empiric treatmentnow lucid and doing better -Unable to get paracentesis - finish empiric abx -Prednisolone initiated for MDF score of 81, and he did show improvementwhich would suggest a possible benefit for ongoing steroids. At the same time, given his untreated hep C and possible SBPafter careful consideration, it was decided that the risk of more prolonged high-dose steroids would probably outweigh the benefitI discussed this with the patient frankly and he expressed an understanding. We felt that the best way to balance this risk/benefit would be to hold on further steroids for now, but have repeat labs in approximately 48 hoursif his labs are stable or continue to show improvement, definitely okay to continue to hold off on steroids. If his labs were to show any worsening, then the risk/benefit would favor resumption -as a bit of a pleasant surprise, his INR did improve with vitamin K -Discussed quite frankly that he is in severe status with his liver, but is showing a degree of stability/improvement, but any alcohol consumption could easily be deadly, and outlined how patient's typically declines/ from cirrhosis. rubbing alcohol injectionfortunately no bacteremia from injection use, and no metabolic acidosisinformed of this after he had already been in the hospital for several days, but fortunately seems to have had no significant sequela. Also discussed that isopropyl alcohol is dangerous in any way for consumption. Chronic respiratory failure with hypoxiachronic O2 use. Goal pulse ox appears to be most appropriate to be about 88-92% Have discussed with patient frankly that I did feel he would be better off at a facility, but we discussed that he does have capacity to make his own decisionshe opted to go home. Close outpatient follow-up, CBC/CMP/PT in approximately 48 hours. Resident Activity Tracking Resident Involvement: Resident Care Provided Care Provided: Adult Hospital Medicine
--- NOTE | 2022-05-27 18:58 | Billing Data ---
Date of Service May 27, 2022 Coding Level of Care Code HOSP INP/OBS DISCH 30 MIN/LESS
== END 2022-05-27 11:50 | disposition home or self-care (01) | DRG 441 ==
LOC: ED 19:29 → 2S 23:54 → SUATTDRO 23:54 → 2S 05-21 01:00

== ENCOUNTER 2022-06-12 15:09 | Inpatient (IN) ==
--- NOTE | 2022-06-12 15:27 | Emergency Department Note ---
Impression & Plan Abdominal ascites, Abdominal pain, Hypoxia, Anasarca, Pulmonary edema, Thrombocytopenia ED Provider Note NAME: KAYODE GREENFIELD JR AGE: 61 SEX: M : 1960 ARRIVES VIA: Ambulance INFORMANT: Patient, EMS ED PROVIDER(S): James Saucedo DO CHIEF COMPLAINT: Shortness of breath HPI: The patient is a 61-year-old male who presented to the emergency department for an evaluation of shortness of breath as well as difficulty breathing. The patient called 911 because he was having increasing shortness of breath as well as abdominal distention. The patient has a history of end-stage liver disease. He also has a history in the past of drug and alcohol abuse. He is noticed that ever since he was discharged from our facility at the beginning of the month he has been having increasing abdominal distention scrotal swelling redness and abdominal pain. The patient was not able to have paracentesis while he was in the emergency department. He denies having any vomiting. He denies having any rectal bleeding. He states his symptoms are worsened with any ambulation. I did receive a prehospital notification about the patient. The patient was very short of breath and hypoxic prior to arrival. ROS: See above HPI for pertinent positives & negatives. A total of 10 systems reviewed and were otherwise negative. PAST MEDICAL HISTORY: See Below PAST SURGICAL HISTORY: See Below FAMILY HISTORY: See Below SOCIAL HISTORY: See Below HOME MEDICATIONS: See Below ALLERGIES: See Below VITALS: See Below PHYSICAL EXAMINATION: GENERAL: She is awake and alert. He is very anxious appearing. EYES: The conjunctivae are clear. The pupils are round and reactive. EARS, NOSE, MOUTH AND THROAT: The nose is without any evidence of any deformity. Mucous membranes are moist. Tongue is midline. NECK: The neck is nontender and supple. JVD was noted bilaterally. RESPIRATORY: Diminished breath sounds are noted throughout. There was very shallow breathing noted. CARDIOVASCULAR: Regular rate and rhythm noted there no murmurs rubs or gallops normal S1 normal S2. GASTROINTESTINAL: The abdomen was distended and diffusely tender. There was no guarding rigidity. MUSCULOSKELETAL/EXTREMITIES: There is no evidence of gross deformity full range of motion is noted in the hips and shoulders. SKIN: Anasarca was noted with erythema from the lower extremities all the way up to the abdominal wall. NEUROLOGIC: Patient is awake alert and oriented x3 MEDICAL DECISION MAKING: The patient is a 61-year-old male who presented to the emergency department for an evaluation of difficulty breathing. The patient does have a history of alcoholic cirrhosis. He is had worsening ascites as well as trouble breathing. The patient appears to be pulmonary edema because of his ascites. I discussed patient's laboratory and radiographic studies with him. He was treated with IV antibiotics in emergency department. He has significant cellulitis in both lower extremities. This could be secondary to venous stasis because of his ascites but given his presentation he was covered with antibiotics. I do not feel the patient is a good candidate for outpatient management as he was hypoxic and having severe shortness of breath on exertion. The patient was discussed with the on-call [facility] hospitalist. They have agreed to evaluate the patient in the emergency department for further management and disposition. Triage Nursing notes reviewed. Prior medical records reviewed Vital Signs: reviewed and remarkable for tachycardia and initial hypoxia. Differential diagnosis: Reactive airway disease, pneumonia, pneumothorax, COPD, CHF, infections, cardiac ischemia, pulmonary embolism, musculoskeletal, gastrointestinal, as well as other pathologies. ER treatment provided: See below Diagnostics interpreted by me: ECG: EKG was obtained in the emergency department. My interpretation is low voltage. Sinus tachycardia [address] segment abnormalities were noted. This was compared to a tracing from May 21, 2022. No changes were noted. Cardiac Monitoring: An order was placed for continuous cardiac monitoring. The monitor shows a rate of 101 bpm with sinus tachycardia. Laboratory studies: As stated above and show below. Imaging studies: See below. Radiographic imaging was reviewed by myself Consultation(s): I discussed this case with Dr. Martinez Past Med/Surg History Medical History AAA (abdominal aortic aneurysm) per pt, last evaluated 6 mo ago [place] or [facility]? "around 5 cm" -->says was referred to vascular surgery but no appt as of yet Alcoholic cirrhosis Anxiety Bipolar disorder COPD (chronic obstructive pulmonary disease) no inh at present Depression DM type 2 (diabetes mellitus, type 2) IDDM Dysphagia Encephalopathy Fibromyalgia Gastroparesis GERD (gastroesophageal reflux disease) Hepatitis C dx 1 mo ago --> per pt, referred to [facility] in [place] for treatment but no appt as of yet History of DVT (deep vein thrombosis) "few years ago" LLE -- unk etiology -- per pt, no treatment at time of dx History of heroin abuse quit 2017 History of kidney stones History of migraine HTN (hypertension) Hyperlipidemia Hypertension Nocturnal hypoxia per pt, prescribed home O2 @ 2 LPM qHS and PRN daily in past but unable to obtain as of late r/t financial struggles. admits to using sister's oxygen at night when able. 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 Sleep apnea non compliant with CPAP Surgical History History of colonoscopy History of ear surgery as a child History of esophagogastroduodenoscopy (EGD) History of tonsillectomy History of tooth extraction S/P excisional debridement LLE Family History Other No family history of adverse response to anesthesia No significant medical problems Social History Smoking Status: Current every day smoker Tobacco Type: Cigarettes Cigarettes Per Day: 6; Second Hand Exposure: Yes; Hx Alcohol Use: Yes Alcohol type: other Hx Substance Use: Yes Last Used Substance: Unknown Last Used Substance Other:: Currently on subutex. Patient states clean for 6 years. Substance Use Type Other:: last used meth 2017 Preferred Language: Polish Communication Ability: Impaired It Technical Specialist Required: No Beliefs That Will Affect Care: None marital status: Single Current Living Situation: Family Current Living Situation Comment: unknown How many Children do You have: 0 Feels Safe at Home: Yes Assistive Devices: Cane Allergies Allergies Allergy/AdvReac Type Severity Reaction Status Date / Time No Known Allergies Allergy Verified 06/12/22 20:21 Home Meds Home Medications Medication Instructions Recorded Confirmed insulin glargine 100 unit/mL (3 80 unit subcut BID 08/20/20 06/12/22 mL) subcutaneous pen (Lantus Solostar U-100 Insulin) insulin lispro 100 unit/mL 30 unit subcut TIDM 08/20/20 06/12/22 subcutaneous solution (Humalog U-100 Insulin) aspirin 81 mg tablet,delayed 81 mg PO DAILY 11/25/20 06/12/22 release (Chavo Low Dose Aspirin) omeprazole 20 mg capsule,delayed 20 mg PO DAILY 06/01/21 06/12/22 release ipratropium 0.5 mg-albuterol 3 mg 3 ml inhalation QID PRN Shortness 12/27/21 06/12/22 (2.5 mg base)/3 mL nebulization Of Breath Or Wheezing soln lidocaine 5 % topical ointment 1 applic topical QID PRN Pain 12/27/21 06/12/22 buprenorphine HCl 8 mg sublingual 8 mg sublingual TID 03/30/22 06/12/22 tablet furosemide 40 mg tablet (Lasix) 40 mg PO DAILY 06/12/22 06/12/22 gabapentin 800 mg tablet 800 mg PO TID 06/12/22 06/12/22 Previous Rx's Medication Instructions Recorded lactulose 20 gram/30 mL oral 20 g (30 mL) PO TID #60 mL 04/21/22 solution propranolol 10 mg tablet 10 mg PO BID #60 tabs 04/21/22 rifaximin 550 mg tablet (Xifaxan) 550 mg PO BID 30 days #60 tabs 05/27/22 Results & Data (ED) Vital Signs Vital Signs - 24 hr 06/12/22 15:20 06/12/22 15:27 06/12/22 15:28 Pulse Rate 106 H Pulse Rate [Right Finger] Respiratory Rate 24 Respiratory Effort / Characteristics Respiratory Depth Blood Pressure 147/81 H Blood Pressure [Right Arm] Blood Pressure Mean 103 Blood Pressure Mean [Right Arm] Pulse Oximetry 97 96 Oxygen Delivery Method Room Air Nasal Cannula Nasal Cannula Oxygen Flow Rate 2.5 2 Sepsis Recent Fever Within 48 Hours No Sepsis New/Unexplained Change in Mental Status N/A Sepsis Action Taken by Nursing No Action Required 06/12/22 16:30 06/12/22 17:53 Pulse Rate Pulse Rate [Right Finger] 106 H 102 H Respiratory Rate 14 16 Respiratory Effort / Characteristics Non-Labored Respiratory Depth Normal Blood Pressure Blood Pressure [Right Arm] 130/62 135/59 L Blood Pressure Mean Blood Pressure Mean [Right Arm] 84 84 Pulse Oximetry 96 96 Oxygen Delivery Method Nasal Cannula Nasal Cannula Oxygen Flow Rate 2.5 2.5 Sepsis Recent Fever Within 48 Hours Sepsis New/Unexplained Change in Mental Status Sepsis Action Taken by Usp Medications Current Medication List: was personally reviewed by me Laboratory Data Attestation: I reviewed the patient's lab results. 06/12/22 15:28 06/12/22 15:28 Lab Results 06/12/22 06/12/22 06/12/22 Range/Units 15:28 15:28 15:28 WBC 4.04 L (4.8-10.8) K/ul RBC 3.08 L (4.63-6.08) M/uL Hgb 10.0 L (14.0-18.0) g/dl POC Hgb (14.0-18.0) g/dl Hct 28.8 L (40.1-51.0) % POC Hct (42-52) % MCV 93.5 (80.0-100.0) fL MCH 32.5 (25.0-34.0) pg MCHC 34.7 (32.0-36.0) g/dL RDW Std Deviation 68.4 H (36.4-46.3) fL RDW Coeff of Nabeel 20.0 H (11.5-14.5) % Plt Count 70 L (130-400) K/uL MPV 11.5 (9.4-12.4) fL Immature Gran % (Auto) 0.5 % Neut % (Auto) 65.9 % Lymph % (Auto) 15.6 % Gregg % (Auto) 13.1 % Eos % (Auto) 4.2 % Baso % (Auto) 0.7 % Neut # (Auto) 2.66 (1.4-6.5) K/uL Lymph # (Auto) 0.63 L (1.2-3.4) K/uL Gregg # (Auto) 0.53 (0.24-0.82) K/uL Eos # (Auto) 0.17 (0-0.50) K/uL Baso # (Auto) 0.03 (0-0.2) K/uL Immature Gran # (Auto) 0.02 (0.00-0.02) K/uL PT 12.6 H (9.0-12.0) Seconds INR 1.2 H (0.9-1.1) APTT 29.4 (21.0-31.0) Seconds PTT Ratio 1.1 VBG pH (7.36-7.41) VBG pCO2 (38-50) mmHg VBG pO2 mmHg VBG HCO3 mmol/L VBG O2 Saturation % VBG Base Excess mEq/L POC Sodium (135-144) mmol/L Sodium 134 L (136-145) mmol/L POC Potassium (3.3-5.0) mmol/L Potassium 4.9 (3.5-5.1) mmol/L POC Chloride (101-112) mmol/L Chloride 103 (98-107) mmol/L Carbon Dioxide 25 (21-32) mmol/L POC Total CO2 (24-31) mmol/L Anion Gap 6 (3-11) POC Anion Gap (16-25) mmol/L POC BUN (7-18) mg/dl BUN 27 H (6-23) mg/dl Creatinine 1.27 (0.6-1.4) mg/dl POC Creatinine (0.6-1.3) mg/dl Est Cr Clr Drug Dosing 86.8 ml/min Est GFR ( Amer) 71.2 ml/min Est GFR (Non-Af Amer) 61.4 ml/min BUN/Creatinine Ratio 21.3 H (10-20) Glucose 102 H (70-99(Fasting)) mg/dl POC Glucose (other) (70-99) mg/dl Lactate (0.4-2.0) mmol/L Calcium 8.4 L (8.5-10.1) mg/dl POC Ioniz Calcium Karen (1.12-1.32) mmol/l Magnesium 1.6 L (1.7-2.4) mg/dl Total Bilirubin 2.6 H (0.2-1.0) mg/dl Direct Bilirubin 1.3 H (0-0.2) mg/dl AST 54 H (13-39) U/L ALT 22 (7-52) U/L Alkaline Phosphatase 146 H (34-104) U/L Ammonia (18-72) umol/L Troponin I High Sens 5.7 (0-20) pg/ml Total Protein 6.3 (6.0-8.3) gm/dl Albumin 2.6 L (3.4-5.0) gm/dl Procalcitonin (0-0.5) ng/ml Urine Color Urine Appearance (Clear) Urine pH (4.5-7.5) Ur Specific [place] (1.000-1.030) Urine Protein (Negative) Urine Glucose (UA) (Negative) Urine Ketones (Negative) Urine Blood (Negative) Urine Nitrite (Negative) Urine Bilirubin (Negative) Urine Urobilinogen (Negative) Ur Leukocyte Esterase (Negative) SARS-CoV-2 (PCR) (Negative) Influenza Type A (PCR) (Neg) Influenza Type B (PCR) (Neg) RSV (RT-PCR) (Neg) 06/12/22 06/12/22 06/12/22 Range/Units 15:28 15:28 15:28 WBC (4.8-10.8) K/ul RBC (4.63-6.08) M/uL Hgb (14.0-18.0) g/dl POC Hgb (14.0-18.0) g/dl Hct (40.1-51.0) % POC Hct (42-52) % MCV (80.0-100.0) fL MCH (25.0-34.0) pg MCHC (32.0-36.0) g/dL RDW Std Deviation (36.4-46.3) fL RDW Coeff of Nabeel (11.5-14.5) % Plt Count (130-400) K/uL MPV (9.4-12.4) fL Immature Gran % (Auto) % Neut % (Auto) % Lymph % (Auto) % Gregg % (Auto) % Eos % (Auto) % Baso % (Auto) % Neut # (Auto) (1.4-6.5) K/uL Lymph # (Auto) (1.2-3.4) K/uL Gregg # (Auto) (0.24-0.82) K/uL Eos # (Auto) (0-0.50) K/uL Baso # (Auto) (0-0.2) K/uL Immature Gran # (Auto) (0.00-0.02) K/uL PT (9.0-12.0) Seconds INR (0.9-1.1) APTT (21.0-31.0) Seconds PTT Ratio VBG pH 7.44 H (7.36-7.41) VBG pCO2 39 (38-50) mmHg VBG pO2 50 mmHg VBG HCO3 27 mmol/L VBG O2 Saturation 84.9 % VBG Base Excess 2.3 mEq/L POC Sodium (135-144) mmol/L Sodium (136-145) mmol/L POC Potassium (3.3-5.0) mmol/L Potassium (3.5-5.1) mmol/L POC Chloride (101-112) mmol/L Chloride (98-107) mmol/L Carbon Dioxide (21-32) mmol/L POC Total CO2 (24-31) mmol/L Anion Gap (3-11) POC Anion Gap (16-25) mmol/L POC BUN (7-18) mg/dl BUN (6-23) mg/dl Creatinine (0.6-1.4) mg/dl POC Creatinine (0.6-1.3) mg/dl Est Cr Clr Drug Dosing ml/min Est GFR ( Amer) ml/min Est GFR (Non-Af Amer) ml/min BUN/Creatinine Ratio (10-20) Glucose (70-99(Fasting)) mg/dl POC Glucose (other) (70-99) mg/dl Lactate 1.5 (0.4-2.0) mmol/L Calcium (8.5-10.1) mg/dl POC Ioniz Calcium Karen (1.12-1.32) mmol/l Magnesium (1.7-2.4) mg/dl Total Bilirubin (0.2-1.0) mg/dl Direct Bilirubin (0-0.2) mg/dl AST (13-39) U/L ALT (7-52) U/L Alkaline Phosphatase (34-104) U/L Ammonia (18-72) umol/L Troponin I High Sens (0-20) pg/ml Total Protein (6.0-8.3) gm/dl Albumin (3.4-5.0) gm/dl Procalcitonin 0.27 (0-0.5) ng/ml Urine Color Urine Appearance (Clear) Urine pH (4.5-7.5) Ur Specific [place] (1.000-1.030) Urine Protein (Negative) Urine Glucose (UA) (Negative) Urine Ketones (Negative) Urine Blood (Negative) Urine Nitrite (Negative) Urine Bilirubin (Negative) Urine Urobilinogen (Negative) Ur Leukocyte Esterase (Negative) SARS-CoV-2 (PCR) (Negative) Influenza Type A (PCR) (Neg) Influenza Type B (PCR) (Neg) RSV (RT-PCR) (Neg) 06/12/22 06/12/2206/12/23 Range/Units 15:28 15:36 16:09 WBC (4.8-10.8) K/ul RBC (4.63-6.08) M/uL Hgb (14.0-18.0) g/dl POC Hgb 10.2 L (14.0-18.0) g/dl Hct (40.1-51.0) % POC Hct 30 L (42-52) % MCV (80.0-100.0) fL MCH (25.0-34.0) pg MCHC (32.0-36.0) g/dL RDW Std Deviation (36.4-46.3) fL RDW Coeff of Nabeel (11.5-14.5) % Plt Count (130-400) K/uL MPV (9.4-12.4) fL Immature Gran % (Auto) % Neut % (Auto) % Lymph % (Auto) % Gregg % (Auto) % Eos % (Auto) % Baso % (Auto) % Neut # (Auto) (1.4-6.5) K/uL Lymph # (Auto) (1.2-3.4) K/uL Gregg # (Auto) (0.24-0.82) K/uL Eos # (Auto) (0-0.50) K/uL Baso # (Auto) (0-0.2) K/uL Immature Gran # (Auto) (0.00-0.02) K/uL PT (9.0-12.0) Seconds INR (0.9-1.1) APTT (21.0-31.0) Seconds PTT Ratio VBG pH (7.36-7.41) VBG pCO2 (38-50) mmHg VBG pO2 mmHg VBG HCO3 mmol/L VBG O2 Saturation % VBG Base Excess mEq/L POC Sodium 134 L (135-144) mmol/L Sodium (136-145) mmol/L POC Potassium 5.0 (3.3-5.0) mmol/L Potassium (3.5-5.1) mmol/L POC Chloride 103 (101-112) mmol/L Chloride (98-107) mmol/L Carbon Dioxide (21-32) mmol/L POC Total CO2 25 (24-31) mmol/L Anion Gap (3-11) POC Anion Gap 12.0 L (16-25) mmol/L POC BUN 29 H (7-18) mg/dl BUN (6-23) mg/dl Creatinine (0.6-1.4) mg/dl POC Creatinine 1.4 H (0.6-1.3) mg/dl Est Cr Clr Drug Dosing ml/min Est GFR ( Amer) ml/min Est GFR (Non-Af Amer) ml/min BUN/Creatinine Ratio (10-20) Glucose (70-99(Fasting)) mg/dl POC Glucose (other) 106 H (70-99) mg/dl Lactate (0.4-2.0) mmol/L Calcium (8.5-10.1) mg/dl POC Ioniz Calcium Karen 1.08 L (1.12-1.32) mmol/l Magnesium (1.7-2.4) mg/dl Total Bilirubin (0.2-1.0) mg/dl Direct Bilirubin (0-0.2) mg/dl AST (13-39) U/L ALT (7-52) U/L Alkaline Phosphatase (34-104) U/L Ammonia 43.0 (18-72) umol/L Troponin I High Sens (0-20) pg/ml Total Protein (6.0-8.3) gm/dl Albumin (3.4-5.0) gm/dl Procalcitonin (0-0.5) ng/ml Urine Color Urine Appearance (Clear) Urine pH (4.5-7.5) Ur Specific [place] (1.000-1.030) Urine Protein (Negative) Urine Glucose (UA) (Negative) Urine Ketones (Negative) Urine Blood (Negative) Urine Nitrite (Negative) Urine Bilirubin (Negative) Urine Urobilinogen (Negative) Ur Leukocyte Esterase (Negative) SARS-CoV-2 (PCR) NEGATIVE (Negative) Influenza Type A (PCR) Negative (Neg) Influenza Type B (PCR) Negative (Neg) RSV (RT-PCR) Negative (Neg) 06/12/22 Range/Units 17:17 WBC (4.8-10.8) K/ul RBC (4.63-6.08) M/uL Hgb (14.0-18.0) g/dl POC Hgb (14.0-18.0) g/dl Hct (40.1-51.0) % POC Hct (42-52) % MCV (80.0-100.0) fL MCH (25.0-34.0) pg MCHC (32.0-36.0) g/dL RDW Std Deviation (36.4-46.3) fL RDW Coeff of Nabeel (11.5-14.5) % Plt Count (130-400) K/uL MPV (9.4-12.4) fL Immature Gran % (Auto) % Neut % (Auto) % Lymph % (Auto) % Gregg % (Auto) % Eos % (Auto) % Baso % (Auto) % Neut # (Auto) (1.4-6.5) K/uL Lymph # (Auto) (1.2-3.4) K/uL Gregg # (Auto) (0.24-0.82) K/uL Eos # (Auto) (0-0.50) K/uL Baso # (Auto) (0-0.2) K/uL Immature Gran # (Auto) (0.00-0.02) K/uL PT (9.0-12.0) Seconds INR (0.9-1.1) APTT (21.0-31.0) Seconds PTT Ratio VBG pH (7.36-7.41) VBG pCO2 (38-50) mmHg VBG pO2 mmHg VBG HCO3 mmol/L VBG O2 Saturation % VBG Base Excess mEq/L POC Sodium (135-144) mmol/L Sodium (136-145) mmol/L POC Potassium (3.3-5.0) mmol/L Potassium (3.5-5.1) mmol/L POC Chloride (101-112) mmol/L Chloride (98-107) mmol/L Carbon Dioxide (21-32) mmol/L POC Total CO2 (24-31) mmol/L Anion Gap (3-11) POC Anion Gap (16-25) mmol/L POC BUN (7-18) mg/dl BUN (6-23) mg/dl Creatinine (0.6-1.4) mg/dl POC Creatinine (0.6-1.3) mg/dl Est Cr Clr Drug Dosing ml/min Est GFR ( Amer) ml/min Est GFR (Non-Af Amer) ml/min BUN/Creatinine Ratio (10-20) Glucose (70-99(Fasting)) mg/dl POC Glucose (other) (70-99) mg/dl Lactate (0.4-2.0) mmol/L Calcium (8.5-10.1) mg/dl POC Ioniz Calcium Karen (1.12-1.32) mmol/l Magnesium (1.7-2.4) mg/dl Total Bilirubin (0.2-1.0) mg/dl Direct Bilirubin (0-0.2) mg/dl AST (13-39) U/L ALT (7-52) U/L Alkaline Phosphatase (34-104) U/L Ammonia (18-72) umol/L Troponin I High Sens (0-20) pg/ml Total Protein (6.0-8.3) gm/dl Albumin (3.4-5.0) gm/dl Procalcitonin (0-0.5) ng/ml Urine Color Yellow Urine Appearance Clear (Clear) Urine pH 5.5 (4.5-7.5) Ur Specific [place] 1.013 (1.000-1.030) Urine Protein Negative (Negative) Urine Glucose (UA) Negative (Negative) Urine Ketones Negative (Negative) Urine Blood Negative (Negative) Urine Nitrite Negative (Negative) Urine Bilirubin Negative (Negative) Urine Urobilinogen Negative (Negative) Ur Leukocyte Esterase Negative (Negative) SARS-CoV-2 (PCR) (Negative) Influenza Type A (PCR) (Neg) Influenza Type B (PCR) (Neg) RSV (RT-PCR) (Neg) Administered Medications Discontinued Medications Furosemide (Furosemide Inj 20 Mg/2 Ml Vial) 20 mg IV ONE ONE Stop: 06/12/22 19:39 Last Admin: 06/12/22 20:36 Dose: 20 mg Documented By: RDJerman Ceftriaxone Sodium (Rocephin) 2,000 mg in 70 mls @ 140 mls/hr IV NOW STA Stop: 06/12/22 17:49 Last Infusion: 06/12/22 18:28 Dose: 0 mls/hr Documented By: Admin: 06/12/22 17:42 Dose: 140 mls/hr Documented By: NRB Vancomycin HCl 2,750 mg/ (Sodium Chloride) 555 mls @ 200 mls/hr IV NOW ONE Stop: 06/12/22 20:06 Last Admin: 06/12/22 18:27 Dose: 200 mls/hr Documented By: NRB Morphine Sulfate (Morphine Sulfate 4 Mg/Ml 1 Ml Carp\\Vial) 4 mg IV NOW STA Stop: 06/12/22 17:21 Last Admin: 06/12/22 17:41 Dose: 4 mg Documented By: NRB Ondansetron HCl (Ondansetron Inj 2 Mg/Ml 2 Ml Vial) 4 mg IV NOW STA Stop: 06/12/22 17:21 Last Admin: 06/12/22 17:41 Dose: 4 mg Documented By: NRB Imaging Data Radiologist's Impression: Chest X-Ray 06/12/22 15:17 XR chest 1V portable CLINICAL HISTORY: Sepsis. COMPARISON STUDY: Chest CT June 02, 2021 and chest radiograph April 19, 2022. FINDINGS: Cardiomegaly is unchanged. Pulmonary vascular congestion is similar to prior exam. Linear left basilar opacity favors atelectasis. There is no consolidation to suggest pneumonia. No pneumothorax or pleural effusion is identified. IMPRESSION: Cardiomegaly and pulmonary vascular congestion, similar to prior exam. ACT 112: Negative or not required by law. Electronically signed by: Remi Hernandez M.D. 06/12/2022 4:11 PM Discharge Plan Visit Data Chief Complaint: Illness ED Provider: James Saucedo Discharge Problem: Abdominal ascites, Abdominal pain, Hypoxia, Anasarca, Pulmonary edema, Thrombocytopenia Patient Disposition: Admitted As Inpatient Discharge Instructions Interventions: ED Discharge Assessment Last Done: 06/12/22 20:38
[2022-06-12 15:47] LABS: Basophils # (auto) 0.03 K/uL (0-0.2); Basophils % (auto) 0.7 %; Eosinophils # (auto) 0.17 K/uL (0-0.50); Eosinophils % (auto) 4.2 %; Hematocrit (blood only) 28.8 % (40.1-51.0); Immature Granulocytes # (auto) 0.02 K/uL (0.00-0.02); Immature Granulocytes % (auto) 0.5 %; Lymphocytes # (auto) 0.63 K/uL (1.2-3.4); Lymphocytes % (auto) 15.6 %; Mean Corpuscular Hemoglobin 32.5 pg (25.0-34.0); Mean Corpuscular Hgb Conc 34.7 g/dL (32.0-36.0); Mean Corpuscular Volume 93.5 fL (80.0-100.0); Mean Platelet Volume 11.5 fL (9.4-12.4); Monocytes # (auto) 0.53 K/uL (0.24-0.82); Monocytes % (auto) 13.1 %; Neutrophils # (auto) 2.66 K/uL (1.4-6.5); Neutrophils % (auto) 65.9 %; Platelet Count 70 K/uL (130-400); RDW Standard Deviation 68.4 fL (36.4-46.3); Red Blood Count 3.08 M/uL (4.63-6.08); White Blood Count 4.04 K/ul (4.8-10.8)
[2022-06-12 15:49] LABS: iSTAT Creatinine 1.4 mg/dl (0.6-1.3); iSTAT Hemoglobin 10.2 g/dl (14.0-18.0); iSTAT Ionized Calcium 1.08 mmol/l (1.12-1.32)
[2022-06-12 15:56] LABS: INR 1.2 (0.9-1.1); Partial Thromboplastin Ratio 1.1; Partial Thromboplastin Time 29.4 Seconds (21.0-31.0); Prothrombin Time 12.6 Seconds (9.0-12.0)
[2022-06-12 15:58] LABS: Base Excess VBG 2.3 mEq/L; HCO3 VBG 27 mmol/L; Oxygen Saturation VBG 84.9 %; PCO2 VBG 39 mmHg (38-50); PO2 VBG 50 mmHg; pH VBG 7.44 (7.36-7.41)
[2022-06-12 16:04] LABS: Albumin Level 2.6 gm/dl (3.4-5.0); Bilirubin Direct 1.3 mg/dl (0-0.2); Bilirubin,Total 2.6 mg/dl (0.2-1.0); Calcium 8.4 mg/dl (8.5-10.1); Magnesium 1.6 mg/dl (1.7-2.4); Potassium 4.9 mmol/L (3.5-5.1)
[2022-06-12 16:10] LABS: BUN Creatinine Ratio 21.3 (10-20); Creatinine Clr Calc Pharmacy 86.8 ml/min; Est GFR (African American) 71.2 ml/min; Est GFR (Non-African American) 61.4 ml/min; Total Protein 6.3 gm/dl (6.0-8.3)
[2022-06-12 16:12] LABS: Troponin I High Sensitivity 5.7 pg/ml (0-20)
--- NOTE | 2022-06-12 16:12 | XRay Report ---
XR chest 1V portable CLINICAL HISTORY: Sepsis. COMPARISON STUDY: Chest CT June 02, 2021 and chest radiograph April 19, 2022. FINDINGS: Cardiomegaly is unchanged. Pulmonary vascular congestion is similar to prior exam. Linear l eft basilar opacity favors atelectasis. There is no consolidation to suggest pneumonia. No pneumothor ax or pleural effusion is identified. IMPRESSION: Cardiomegaly and pulmonary vascular congestion, similar to prior exam. ACT 112: Negative or not required by law. Electronically signed by: Remi Hernandez M.D. 06/12/2022 4:11 PM
[2022-06-12 17:00] LABS: Influenza A virus by PCR Negative (Neg); Influenza B virus by PCR Negative (Neg); RSV by PCR Negative (Neg); SARS CoV2 RNA(COVID-19) Ceph NEGATIVE (Negative)
[2022-06-12] MEDS ORDERED: ONDANSETRON INJ 2 MG/ML 2 ML VIAL IV STA (17:20)
[2022-06-12] MEDS ORDERED: cefTRIAXone SODIUM 2,000 MG/70 ML BAG IV STA (17:20)
[2022-06-12] MEDS ORDERED: VANCOMYCIN CONSULT ACTIVE PRN (17:20)
[2022-06-12] MEDS ORDERED: MoRPHine SULFATE 4 MG/ML 1 ML CARP\\VIAL IV STA (17:20)
[2022-06-12] MEDS ORDERED: VANCOMYCIN HCL 2,750 MG in SODIUM CHLORIDE 0.9% 500 ML IV ONE (17:20)
[2022-06-12 17:41] LABS: Appearance Urine Clear (Clear); Bilirubin Urine Negative (Negative); Blood Urine Negative (Negative); Color Urine Yellow; Glucose Urine UA Negative (Negative); Ketones Urine Negative (Negative); Leukocyte Esterase Urine Negative (Negative); Nitrite Urine Negative (Negative); Protein Urine Negative (Negative); Specific Gravity Urine 1.013 (1.000-1.030); Urobilinogen Urine Negative (Negative); pH Urine 5.5 (4.5-7.5)
--- NOTE | 2022-06-12 18:29 | Electrocardiogram Report ---
Test Reason : Blood Pressure : / mmHG Vent. Rate : 104 BPM Atrial Rate : 108 BPM P-R Int : 000 ms QRS Dur : 084 ms QT Int : 336 ms P-R-T Axes : 000 -03 022 degrees QTc Int : 441 ms Sinus rhythm Low voltage QRS Cannot rule out Inferior infarct , age undetermined Abnormal ECG When compared with ECG of 21-MAY-2022 06:26, QT has shortened Confirmed by Pedro Pablo Loo ([id number]) on 06/12/2022 6:28:49 PM Referred By: Confirmed By:Scottie Loo
--- NOTE | 2022-06-12 18:45 | History & Physical Report ---
Date of Service June 12, 2022 Assessment & Plan (1) Abdominal ascites: Plan: This is a 61-year-old male with a history of chronic hepatitis C, cirrhosis, alcohol abuse, IV drug use, OU D on Suboxone, AAA, GERD, type 2 diabetes (A1c 9.8% in 1022), COPD w/ chronic O2 requirement of 2 L, ELINA, hypertension who reported to [facility] for evaluation of shortness of breath, progressive abdominal distention, and scrotal discomfort in the setting of o ngoing subjective fevers. His presentation is concerning for abdominal ascites secondary to known cirrhosis. Abdominal Ascites -- given constitutional symptoms and painful belly exam, assume SBP until proven otherwise * Significant abdominal distention with +TTP and extension into the scrotum -- weight 110 on 06/07, now at 132 kg (+22kg weight gain) * Suspect secondary to progressing cirrhotic burden as well as dietary indiscretion (multiple cans of soup a day, endorses using salt shaker with most things) * Give Lasix 20mg IV x 1 now -- can consider further doses but start gentle given more labile pressures * Consult radiology for paracentesis; labs, cytology, diff entered -- replete w/ 25% albumin @ 8g per every liter removed, expecting this to be large-volume (e.g., 5L = 40g of albumin) * Cover empirically for SBP with CFTX 2g q24 until proven otherwise * NPO at midnight * Pain control: morphine 4mg IV q6h PRN * Hold PO Lasix for now * Will need modified diet when appropriate -- Na < 2g/d (2) Cirrhosis: Plan: Cirrhosis * Likely multifactorial etiology -- alcohol-related (currently in remission), chronic HCV (untreated) * Currently follows with [facility] [place] [facility] - getting established w/ [facility] Hepatology for further care, ?possible transplant * MELD score 17 on today's admission * Last EGD in 2020 -- no acute concerns * Continue maintenance medications: propranolol, Aldactone, furosemide, lactulose, rifaximin * LFTs with evidence of mild hepatitis -- likely resolving from last visit -- but thankfully no e/o acute decompensation or encephalopathy * Chronic steroid use for elevated MDF and good response to methylpred during last visit deferred given untreated HCV * Hepatotoxic meds to be avoided (3) Venous stasis dermatitis: Plan: Venous Stasis Dermatitis * Suspect lower extremity skin changes are more likely dermatitis with known chronic edema and worsening anasarca * Compression stockings, elevate legs, mobile exercises while here * Continue diuresis therapy for cirrhosis * PT to be ordered when appropriate for education (4) Alcohol abuse, in remission: Plan: EtOH Abuse * In remission - has not drank since prior to last admission * Continue thiamine and folate * As above, see cirrhosis (5) Type 2 diabetes mellitus: Plan: T2DM * A1c 9.8% in February 2022 * Given NPO -- reduce Lantus to 50U (from 80) qHS with +SSI on-board * When appropriate -- CC diet (6) Hepatitis C: Plan: Chronic Hepatitis C * Untreated. Reportedly set-up to see [facility] for treatment * Engage nurse navigator prior to discharge to ensure adequate follow-up for treatment (7) Thrombocytopenia: Plan: Thrombocytopenia * Secondary to cirrhosis. Chronic. Stable. 70 at admission, improved from 27 compared to prior. (8) GERD (gastroesophageal reflux disease): Plan: GERD * PPI (9) Acute hepatitis: Plan: Hepatitis / Elevated LFTs * Likely multifactorial - resolving prior episode of alcoholic hepatitis -- numbers are best they've been in a while * TBili 2.6 / TBili 1.3 / AST 54 / ALT 22 / ALP 146 Plan Code: Full Diet: NPO, low Na w/ fluid restriction when appropriate PPX: SCDs Dispo: [facility] History of Present Illness Primary Care Provider: Bobby Leslie MD This is a 61-year-old male with a history of chronic hepatitis C, cirrhosis, alcohol abuse, IV drug use, OU D on Suboxone, AAA, GERD, type 2 diabetes (A1c 9.8% in 1021), COPD w/ chronic O2 requirement of 2 L, ELINA, hypertension who reported to [facility] for evaluation of shortness of breath and difficulty breathing. He has also noticed progressive abdominal distention and abdominal pain. Patient is consistent with his last hospital admission, he has been fully compliant with all of his medications. He was taken off spironolactone due to low blood pressure concerns. He says that he has actually been feeling surprisingly well from a mentation standpoint. However, he has noticed progressive swelling of his belly and scrotum. This is gone to a point where he cannot sit comfortably and he has significant pain with palpation over his belly. He does report some subjective fevers at home. Denies any persistent chills or night sweats. He says that he feels like he cannot cough because of how big his belly is and the pain associated with it. From a dietary perspective he endorses eating 2 cans of soup a day as well as using a saltshaker frequently. He does share with me that he is in the process of getting accepted to [facility]'s liver program, and 2 of their stipulations are that he quit smoking and remain off alcohol. He has been abstinent from alcohol since prior to his last admission. Denies any recent use of recreational drugs. He does endorse cutting down on his cigarette use. Of note, patient was recently admitted to [facility] and discharged on 05/27 for acute decompensated cirrhosis and encephalopathy thought to be secondary to hepatic encephalopathy, toxic contribution (e.g., medications), chronic alcohol abuse. There was concern for possible SBP, however, team was unable to get a paracentesis during this stay, for which an empiric course of ceftriaxone was completed. He was also treated with prednisolone too for high MDF score. In the ER, patient was found to be hypertensive to 147/81 with heart rate of 106. Weight at 132 kg from 110 kg on 06/07. He is saturating at 97% on room a ir, but was put on nasal cannula for comfort. Admission labs demonstrate chronic leukopenia at 4, chronic anemia at 10, chronic thrombocytopenia at 70 (improved from 27 on 05/27), INR 1.2. VBG revealed mild respiratory alkalosis at 7.44. Initial lites revealing sodium 134, BUN 27/creatinine 1.27. LFTs reviewed mixed hyperbilirubinemia with T bili 2.6, direct bilirubin 1.3, AST 54/ALT 22improved from prior. Albumin 2.6. COVID, flu, and RSV negative. Chest x-ray reveals cardiomegaly with pulmonary vascular congestion, largely unchanged compared to prior. He was given morphine, Zofran, ceftriaxone, and vancomycin. --- This documentation was created utilizing dictation software. As such, syntax, grammatical, and word-choice errors may be present. Notes are screened prior to submission in an attempt to reduce these errors. If there are any questions or concerns, please contact the author directly for clarification. Allergies Allergy/AdvReac Type Severity Reaction Status Date / Time No Known Allergies Allergy Verified 06/12/22 20:21 Home Medications Medication Instructions Recorded Confirmed Type insulin glargine 100 unit/mL (3 80 unit subcut BID 08/20/20 06/12/22 History mL) subcutaneous pen (Lantus Solostar U-100 Insulin) insulin lispro 100 unit/mL 30 unit subcut TIDM 08/20/20 06/12/22 History subcutaneous solution (Humalog U-100 Insulin) aspirin 81 mg tablet,delayed 81 mg PO DAILY 11/25/20 06/12/22 History release (Chavo Low Dose Aspirin) omeprazole 20 mg capsule,delayed 20 mg PO DAILY 06/01/21 06/12/22 History release ipratropium 0.5 mg-albuterol 3 mg 3 ml inhalation QID PRN Shortness 12/27/21 06/12/22 History (2.5 mg base)/3 mL nebulization Of Breath Or Wheezing soln lidocaine 5 % topical ointment 1 applic topical QID PRN Pain 12/27/21 06/12/22 History buprenorphine HCl 8 mg sublingual 8 mg sublingual TID 03/30/22 06/12/22 History tablet lactulose 20 gram/30 mL oral 20 g (30 mL) PO TID #60 mL 04/21/22 06/12/22 Rx solution propranolol 10 mg tablet 10 mg PO BID #60 tabs 04/21/22 06/12/22 Rx rifaximin 550 mg tablet (Xifaxan) 550 mg PO BID 30 days #60 tabs 05/27/22 06/12/22 Rx furosemide 40 mg tablet (Lasix) 40 mg PO DAILY 06/12/22 06/12/22 History gabapentin 800 mg tablet 800 mg PO TID 06/12/22 06/12/22 History Past Med/Surg History Medical History AAA (abdominal aortic aneurysm) per pt, last evaluated 6 mo ago [facility] or [facility]? "around 5 cm" -->says was referred to vascular surgery but no appt as of yet Alcoholic cirrhosis Anxiety Bipolar disorder COPD (chronic obstructive pulmonary disease) no inh at present Depression DM type 2 (diabetes mellitus, type 2) IDDM Dysphagia Encephalopathy Fibromyalgia Gastroparesis GERD (gastroesophageal reflux disease) Hepatitis C dx 1 mo ago --> per pt, referred to [facility] in [place] for treatment but no appt as of yet History of DVT (deep vein thrombosis) "few years ago" LLE -- unk etiology -- per pt, no treatment at time of dx History of heroin abuse quit 2017 History of kidney stones History of migraine HTN (hypertension) Hyperlipidemia Hypertension Nocturnal hypoxia per pt, prescribed home O2 @ 2 LPM qHS and PRN daily in past but unable to obtain as of late r/t financial struggles. admits to using sister's oxygen at night when able. 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 Sleep apnea non compliant with CPAP Surgical History History of colonoscopy History of ear surgery as a child History of esophagogastroduodenoscopy (EGD) History of tonsillectomy History of tooth extraction S/P excisional debridement LLE Family History Other No family history of adverse response to anesthesia No significant medical problems Social History Smoking Status: Current every day smoker Tobacco Type: Cigarettes Cigarettes Per Day: 6; Second Hand Exposure: Yes; Hx Alcohol Use: Yes Alcohol type: other Hx Substance Use: Yes Last Used Substance: Unknown Last Used Substance Other:: Currently on subutex. Patient states clean for 6 years. Substance Use Type Other:: last used meth 2017 Preferred Language: Liberian Communication Ability: Impaired Cell Cleaner Required: No Beliefs That Will Affect Care: None marital status: Single Current Living Situation: Family Current Living Situation Comment: unknown How many Children do You have: 0 Feels Safe at Home: Yes Assistive Devices: Cane Review of Systems Review of Systems: As per HPI Physical Exam Physical Exam: General: 61-year old male who is alert, oriented, and appears in mild distress secondary to pain. HEENT: NCAT. - Eyes - Sclera are white, anicteric, and without injection. - Mouth - MMM - Neck - supple, unable to assess for JVD given habitus. Cardiac: Fast rate and regular rhythm; S1 and S2 present with no murmurs, rubs, or gallops. Pulmonary: Good respiratory effort with symmetric expansion of the chest. No use of accessory muscles. Lungs demonstrated coarse breath sounds throughout. Abdominal: Normoactive bowel sounds. Extensively enlarged abdomen with significant TTP and associated scattered petechiae throughout. : Extensive edema involving the scrotum without appreciable skin rashes. Extremities: Upper and lower extremities are warm and well perfused. 2+ peripheral edema in the lower extremities bilaterally with associated erythema extending up above the knees. Non-TTP. Psych: Well-developed, well-nourished, appropriately dressed for occasion. Behavior is cooperative and appropriate. Affect is WNL. Insight is appropriate. Results & Data Results & Data ([facility]) Vital Signs (Past 12 Hours) Vital Signs Pulse Pulse Resp BP BP Pulse Ox O2 Del Method 06/12/22 17:53 102 H 16 135/59 L 96 Nasal Cannula 06/12/22 16:30 106 H 14 130/62 96 Nasal Cannula 06/12/22 15:28 Nasal Cannula 06/12/22 15:27 96 Nasal Cannula 06/12/22 15:20 106 H 24 147/81 H 97 Room Air O2 Flow Rate 06/12/22 17:53 2.5 06/12/22 16:30 2.5 06/12/22 15:28 2 06/12/22 15:27 2.5 06/12/22 15:20 Supervising Physician Co-Signing Physician Notes Patient seen and examined, chart reviewed, case discussed with Dr. Torres and I agree with the assessment and plan as documented above. In brief, patient is a 61yo male with history of chronic HCV, cirrhosis of the liver, former EtOH abuse as well as drug abuse, DM and COPD presenting with worsening ascites, LE edema and scrotal edema and SOB. Patient was recently hospitalized - was taken off spironolactone due to low blood pressure. Does report eating some high sodium foods such as canned soup, recent steroid use may also be contributing. On exam patient is afebrile, HD stable, adequate oxygenation on room air in discomfort Skin - erythema of bilateral LE with stasis dermatitis, flaking HEENT - MMM, Neck supple Heart - +S1/S2, regular Lungs - Coarse breath sounds, no wheezing Abd - tense ascites, tenderness, no rebound/guarding Ext - +edema, erythema, scrotal edema Labs and images reviewed Assessment/Plan: -Diuresis - Lasix 20mg IV now and in AM -Paracentesis with cytology, cell count and gram stain -Ceftriaxone -Remainder as above Resident Activity Tracking Resident Involvement: Resident Care Provided Care Provided: Adult Hospital Medicine
[2022-06-12] MEDS ORDERED: FUROSEMIDE INJ 20 MG/2 ML VIAL IV ONE (19:38)
[2022-06-12] MEDS ORDERED: MoRPHine SULFATE 2 MG/ML CARP IV STA (20:03)
[2022-06-12] MEDS ORDERED: DEXTROSE 50% 50 ML SYRINGE IV PRN (21:11)
[2022-06-12] MEDS ORDERED: LIDOCAINE 5% OINT 30 GM TUBE TOP PRN (21:11)
[2022-06-12] MEDS ORDERED: GLUCAGON FOR INJ 1 MG VIAL SQ PRN (21:11)
[2022-06-12] MEDS ORDERED: CARBOHYDRATES FOR HYPOGLYCEMIA PO PRN (21:11)
[2022-06-12] MEDS ORDERED: GLUCOSE 40% GEL 15 GM TUBE PO PRN (21:11)
[2022-06-12] MEDS ORDERED: GLUCOSE 10 TAB/TUBE PO PRN (21:11)
[2022-06-12] MEDS ORDERED: ALBUMIN 25% 12.5 GM/50 ML VIAL IV PRN (21:11)
[2022-06-12] MEDS ORDERED: GABAPENTIN 250 MG/5 ML 470 ML BTL PO SCH (21:30)
[2022-06-12] MEDS: PROPRANOLOL HCL 10 MG TAB PO SCH (22:14)
[2022-06-12] MEDS: PANTOprazole 40 MG TAB PO SCH (22:14)
[2022-06-12] MEDS: rifAXIMin 550 MG TABLET PO SCH (22:14)
[2022-06-12] MEDS: buprenorphine HCL 8 MG SUBL SL SCH (22:14)
[2022-06-12] MEDS: LACTULOSE SYRUP 20 GM/30 ML UDC PO SCH (22:14)
[2022-06-12] MEDS: GABAPENTIN 250 MG/5 ML 470 ML BTL PO SCH (22:15)
[2022-06-12] MEDS: INSULIN ASPART PER UNIT SC SCH (22:17)
[2022-06-12] MEDS: LANTUS PER UNIT CHARGE SQ SCH (22:54)
[2022-06-12] MEDS ORDERED: LANTUS PER UNIT CHARGE SQ ONE (22:54)
--- NOTE | 2022-06-12 23:21 | Billing Data ---
Date of Service June 12, 2022 Coding Level of Care Code 31009 INT INP/OBS CARE
[2022-06-13 06:40] LABS: Basophils # (auto) 0.03 K/uL (0-0.2); Basophils % (auto) 0.7 %; Eosinophils % (auto) 7.3 %; Hematocrit (blood only) 26.6 % (40.1-51.0); Hemoglobin 9.2 g/dl (14.0-18.0); Immature Granulocytes # (auto) 0.01 K/uL (0.00-0.02); Immature Granulocytes % (auto) 0.2 %; Lymphocytes % (auto) 29.1 %; Mean Corpuscular Hemoglobin 32.7 pg (25.0-34.0); Mean Corpuscular Hgb Conc 34.6 g/dL (32.0-36.0); Mean Corpuscular Volume 94.7 fL (80.0-100.0); Mean Platelet Volume 11.7 fL (9.4-12.4); Monocytes # (auto) 0.59 K/uL (0.24-0.82); Monocytes % (auto) 14.3 %; Neutrophils # (auto) 1.99 K/uL (1.4-6.5); Neutrophils % (auto) 48.4 %; Platelet Count 93 K/uL (130-400); RDW Coefficient of Variation 20.2 % (11.5-14.5); RDW Standard Deviation 69.5 fL (36.4-46.3); Red Blood Count 2.81 M/uL (4.63-6.08); White Blood Count 4.12 K/ul (4.8-10.8)
[2022-06-13 06:55] LABS: INR 1.3 (0.9-1.1); Prothrombin Time 13.3 Seconds (9.0-12.0)
[2022-06-13 06:59] LABS: Albumin Level 2.3 gm/dl (3.4-5.0); Bilirubin,Total 2.3 mg/dl (0.2-1.0); Calcium 8.3 mg/dl (8.5-10.1); Potassium 4.8 mmol/L (3.5-5.1)
[2022-06-13 07:05] LABS: Albumin Globulin Ratio 0.7 (0.9-2); BUN Creatinine Ratio 23.1 (10-20); Creatinine Clr Calc Pharmacy 98.1 ml/min; Est GFR (African American) 86.6 ml/min; Est GFR (Non-African American) 74.7 ml/min; Globulin 3.2 gm/dl (2.5-4.0); Total Protein 5.5 gm/dl (6.0-8.3)
[2022-06-13 07:06] LABS: Anisocytosis Present; Target Cells 1+; Tear Drop Cells 1+
[2022-06-13] MEDS: INSULIN ASPART PER UNIT SC SCH ×4 (07:45→20:53)
[2022-06-13] MEDS ORDERED: MoRPHine SULFATE 2 MG/ML CARP IV STA (08:35)
[2022-06-13] MEDS: FOLIC ACID 1 MG TAB PO SCH (08:59)
[2022-06-13] MEDS: PANTOprazole 40 MG TAB PO SCH ×2 (09:00→20:17)
[2022-06-13] MEDS: rifAXIMin 550 MG TABLET PO SCH ×2 (09:00→20:17)
[2022-06-13] MEDS: PROPRANOLOL HCL 10 MG TAB PO SCH ×2 (09:00→20:26)
[2022-06-13] MEDS: GABAPENTIN 250 MG/5 ML 470 ML BTL PO SCH ×3 (09:01→20:17)
[2022-06-13] MEDS: FUROSEMIDE INJ 20 MG/2 ML VIAL IV SCH (09:01)
[2022-06-13] MEDS: buprenorphine HCL 8 MG SUBL SL SCH ×3 (09:01→20:17)
[2022-06-13] MEDS: ASPIRIN 81 MG ECTAB PO SCH (09:02)
[2022-06-13] MEDS: ALFUZOSIN HCL 10 MG TAB PO SCH (09:02)
[2022-06-13] MEDS: NICOTINE 14 MG/24 HR PATCH TD SCH (09:06)
--- NOTE | 2022-06-13 09:32 | Medical Student Progress Note ---
Date of Service June 13, 2022 Assessment & Plan (1) Abdominal ascites: Plan: 61 y/o male with history of chronic HCV, cirrhosis, alcohol abuse, IV drug use, opioid use disorder on Suboxone, abdominal aortic aneurysm, T2DM (A1c 9.8% on 03/11), COPD w/ chronic 2L O2 requirement, ELINA, HTN, presented with shortness of breath, progressive abdominal and scrotal distention, and subjective fevers. Abdominal Ascites -Significant abdominal and scrotal distention -Weight 110 on 06/07, now at 132 kg: +22kg weight gain -Inciting even likely a result of dietary indiscretion and progressive cirrhosis -Given Lasix -Paracentesis via radiology ordered today -Labs, cytology, diff entered -Replete w/ 25% albumin @ 8g per every liter removed, expecting this to be large-volume (e.g., 5L = 40g of albumin) -Ceftriaxone 2g q24 to cover empirically for SBP -Morphine 4mg IV q6h PRN for pain control -Holding Lasix PO for now -Will need modified diet of Na < 2g/d when appropriate (2) Cirrhosis: Plan: -Likely related to chronic untreated HCV and past chronic alcohol abuse -Currently follows with [facility] -Getting established with [facility] Hep[facility] for HCV care, and possible transplant -MELD score 17 on admission -MELD score 16 today -Last EGD in 2020 showed no acute concerns -Continue maintenance medications of propranolol, Aldactone, furosemide, lactulose, rifaximin -AST 54, ALT 22, and albumin of 2.6 yesterday -AST 53, ALT 18, and albumin of 2.3 today -No acute hepatic decompensation or encephalopathy -Chronic steroid use for elevated MDF and good response to methylpred during last visit deferred given untreated HCV -Hepatotoxic meds to be avoided (3) Venous stasis dermatitis: Plan: -Lower extremity skin changes are likely secondary to chronic venous stasis -Compression stockings, elevate legs, mobile exercises while here -Continue diuresis therapy for cirrhosis -PT to be ordered when appropriate for education (4) Alcohol abuse, in remission: Plan: -In remission as he has not drank since prior to last admission -Motivated to remain in remission in order to receive treatment by [facility] Hep[facility] -Continue thiamine and folate -As above, see cirrhosis (5) Type 2 diabetes mellitus: Plan: -A1c 9.8% in February 2022 -NPO pending paracentesis -Reduce Lantus to 50U (from 80) qHS with +SSI on-board -Following paracentesis and when appropriate, CC diet (6) Hepatitis C: Plan: -Currently untreated -Reportedly set-up to see [facility] [place] for treatment. Will see [facility] Hep[facility] following tobacco cessation and continued alcohol abstinence -Engage nurse navigator prior to discharge to ensure adequate follow-up for treatment (7) Thrombocytopenia: Plan: -Platelet count 70K at admission, improved from 27K compared to prior -Currently 93K -Likely secondary to cirrhosis -Trend CBC (8) GERD (gastroesophageal reflux disease): Plan: -Continue PPI (9) Acute hepatitis: Plan: -Likely multifactorial from past alcohol abuse and chronic HCV infection -Resolving prior episode of alcoholic hepatitis -Total bilirubin 2.6, AST 54, ALT 22, Alkaline Phosphatase 146, and albumin of 2.6 yesterday -Total bilirubin 2.3, AST 53, ALT 18, Alkaline Phosphatase 116, and albumin of 2.3 today Plan Code: Full Diet: NPO, low Na w/ fluid restriction when appropriate PPX: SCDs Dispo: [facility] Admission and Anticipated Discharge Date Admission Date: June 12, 2022 Supervising Attestation I saw and examined the patient and discussed case with medical student/certified medical transcriptionist. I agree with the Assessment and Plan Subjective 61 y/o male with history of chronic HCV, cirrhosis, alcohol abuse, IV drug use, opioid use disorder on Suboxone, abdominal aortic aneurysm, T2DM (A1c 9.8% on ), COPD w/ chronic 2L O2 requirement, ELINA, HTN, presented with shortness of breath, progressive abdominal and scrotal distention, and subjective fevers. Pt was given IV Lasix for ascites and empirically treated with Ceftriaxone for SBP. Paracentesis planned today. Today, pt states the abdominal swelling has caused him so much discomfort that it makes it difficult for him to take a full breath and produce an adequate cough. Pt is desperate to get a paracentesis done today to relieve the abdominal pressure and pain. Overall, pt has no new symptoms since yesterday. Pt has remained abstinent from alcohol and is able to slowly cut down his cigarette usage in order to be accepted by [facility] heptology clinic for HCV/cirrhosis treatment. Asked about the possibility of getting a nicotine patch during his time in the hospital. Overall, wants to get better to be there for his grand kids. Review of Systems Respiratory: + cough and + dyspnea Cardiovascular: no chest pain Gastrointestinal: + abdominal pain and + bloating Neurologic: no numbness and no paresthesia Psychiatric: no visual hallucinations Physical Exam Respiratory: Mild wheezing present bilaterally. Wet cough elicited with deep inspiration. No use of accessory muscles at rest. Cardiovascular: Rate/Rhythm: regular rate and regular rhythm Heart Sounds: no click, no gallop, no murmur and no cardiac rub Extremities: + calf tende rness (Mild - Bilateral) and + pedal edema Gastrointestinal (Abdomen): Distant bowel sounds. Diffusely tender to minimal palpation. Diffusely enlarged abdomen with positive fluid wave Skin: Bilateral calf erythema with distinct margins that is nontender to palpation. Dry scaly skin in lower extremities. Neurologic: patellar DTR's 2+ bilat, sensation intact Psychiatric: Orientation: alert and oriented x 3 Genitourinary: Significant scrotal swelling Results & Data ([facility]) Vital Signs (Past 12 Hours) Vital Signs Temp Pulse Pulse Resp BP Pulse Ox O2 Del Method 06/13/22 07:36 36.4 C L 85 18 109/62 91 Nasal Cannula 06/13/22 07:33 83 06/13/22 06:30 82 107/64 06/13/22 06:14 101 H 06/13/22 03:06 36.8 C 74 18 95/62 L 94 Nasal Cannula O2 Flow Rate 06/13/22 07:36 4 06/13/22 07:33 06/13/22 06:30 06/13/22 06:14 06/13/22 03:06 4
[2022-06-13] MEDS: LACTULOSE SYRUP 20 GM/30 ML UDC PO SCH ×3 (10:43→20:53)
[2022-06-13] MEDS ORDERED: KETOROLAC TROMETHAMINE 15 MG/ML VIAL IV ONE (14:45)
[2022-06-13] MEDS ORDERED: cefTRIAXone SODIUM 2,000 MG in DEXTROSE 5% 50 ML IV SCH (18:00)
[2022-06-13] MEDS: LANTUS PER UNIT CHARGE SQ SCH (20:53)
[2022-06-13] MEDS: MoRPHine SULFATE 4 MG/ML 1 ML CARP\\VIAL IV PRN (23:37)
[2022-06-14] MEDS: INSULIN ASPART PER UNIT SC SCH ×4 (05:42→22:18)
[2022-06-14] MEDS: buprenorphine HCL 8 MG SUBL SL SCH ×3 (09:00→22:15)
--- NOTE | 2022-06-14 12:02 | Ultrasound Report ---
ULTRASOUND GUIDED DIAGNOSTIC AND THERAPEUTIC PARACENTESIS CLINICAL HISTORY: Paracentesis. COMPARISON STUDY: CT of the abdomen and pelvis May 21, 2022. PROCEDURE: The risks, benefits, and alternatives to the procedure were discussed with the patient inc luding the risk of bleeding, infection and injury to adjacent structures. The patient agreed to the procedure and informed written consent was obtained. Following real-time ultrasound localization, the skin of the right lower quadrant was prepped and draped. Following local anesthesia with Xylocaine, the sheath paracentesis needle was inserted and approximately 4 liters of straw-colored fluid was rem win by vacuum suction. The patient tolerated the procedure well and no immediate complications were evident. IMPRESSION: Ultrasound-guided paracentesis with removal of 4 liters of ascites. 1 L of ascites was s ent to the laboratory for analysis as ordered. ACT 112: Negative or not required by law. Electronically signed by: Remi Hernandez M.D. 06/14/2022 10:54 AM
[2022-06-14 12:22] LABS: Albumin Peritoneal Fluid < 1.5 gm/dl; Glucose Peritoneal Fluid 121 mg/dl; LDH Peritoneal Fluid 27 U/L; Total Protein Peritoneal Fluid < 3.0 gm/dl
[2022-06-14 12:30] LABS: Basophils # (auto) 0.02 K/uL (0-0.2); Basophils % (auto) 0.7 %; Eosinophils # (auto) 0.21 K/uL (0-0.50); Eosinophils % (auto) 7.7 %; Hematocrit (blood only) 26.5 % (40.1-51.0); Lymphocytes % (auto) 33.2 %; Mean Corpuscular Volume 94.3 fL (80.0-100.0); Mean Platelet Volume 11.4 fL (9.4-12.4); Monocytes # (auto) 0.44 K/uL (0.24-0.82); Monocytes % (auto) 16.2 %; Neutrophils # (auto) 1.14 K/uL (1.4-6.5); Neutrophils % (auto) 42.2 %; Platelet Count 65 K/uL (130-400); RDW Coefficient of Variation 19.1 % (11.5-14.5); RDW Standard Deviation 65.5 fL (36.4-46.3); Red Blood Count 2.81 M/uL (4.63-6.08); White Blood Count 2.71 K/ul (4.8-10.8)
[2022-06-14 12:33] LABS: Appearance Peritoneal Fluid Hazy; Basophils, Fluid 1 %; Color Peritoneal Fluid Yellow; Lymphocytes, Fluid 20 %; Mono,Macrophage,Mesothelial 64 %; Neutrophils, Fluid 15 %; RBC Peritoneal Fluid Auto 2000 /uL; WBC Peritoneal Fluid Auto 76 /ul (0-300)
[2022-06-14 12:33] LABS: Est GFR (African American) 97.4 ml/min; Potassium 4.5 mmol/L (3.5-5.1)
[2022-06-14 12:34] LABS: Albumin Globulin Ratio 0.7 (0.9-2); Albumin Level 2.2 gm/dl (3.4-5.0); BUN Creatinine Ratio 23.5 (10-20); Calcium 7.9 mg/dl (8.5-10.1); Creatinine Clr Calc Pharmacy 108.1 ml/min; Est GFR (Non-African American) 84.1 ml/min; Globulin 3.1 gm/dl (2.5-4.0); Total Protein 5.3 gm/dl (6.0-8.3)
[2022-06-14] MEDS: GABAPENTIN 250 MG/5 ML 470 ML BTL PO SCH ×3 (12:51→22:17)
[2022-06-14] MEDS: LACTULOSE SYRUP 20 GM/30 ML UDC PO SCH ×3 (12:51→22:16)
--- NOTE | 2022-06-14 13:01 | Hospitalist Progress Note ---
Date of Service June 14, 2022 Assessment & Plan (1) Abdominal ascites: Plan: This is a 61-year-old male with a history of chronic hepatitis C, cirrhosis, alcohol abuse, IV drug use, OU D on Suboxone, AAA, GERD, type 2 diabetes (A1c 9.8% in 1022), COPD w/ chronic O2 requirement of 2 L, ELINA, hypertension who reported to [facility] for evaluation of shortness of breath, progressive abdominal distention, and scrotal discomfort in the setting of o ngoing subjective fevers. His presentation is concerning for abdominal ascites secondary to known cirrhosis. Abdominal Ascites -- given constitutional symptoms and painful belly exam, assume SBP until proven otherwise * Significant abdominal distention with +TTP and extension into the scrotum -- weight 110 on 06/07, now at 132 kg (+22kg weight gain) * Suspect secondary to progressing cirrhotic burden as well as dietary indiscretion (multiple cans of soup a day, endorses using salt shaker with most things) -Paracentesis completed 06/14- 4L removed, transudative ascitic fluid per cytology studies -Discontinued ceftriaxone as SBP ruled out * Pain control: morphine 4mg IV q6h PRN * Continue spironolactone - Low salt diet - Gastroenterology consult to hopefully facilitate potential serial paracenteses if needed as outpatient (2) Cirrhosis: Plan: Cirrhosis * Likely multifactorial etiology -- alcohol-related (currently in remission), chronic HCV (untreated) * Currently follows with [facility] - getting established w/ [facility] Hepatology for further care, ?possible transplant * MELD score 17 on admission * Last EGD in 2020 -- no acute concerns * Continue maintenance medications: propranolol, Aldactone, furosemide, lactulose, rifaximin * LFTs with evidence of mild hepatitis -- likely resolving from last visit -- but thankfully no e/o acute decompensation or encephalopathy * Chronic steroid use for elevated MDF and good response to methylpred during last visit deferred given untreated HCV * Hepatotoxic meds to be avoided (3) Venous stasis dermatitis: Plan: Venous Stasis Dermatitis * Suspect lower extremity skin changes are more likely dermatitis with known chronic edema and worsening anasarca * Compression stockings, elevate legs, mobile exercises while here * Continue diuresis therapy for cirrhosis (4) Alcohol abuse, in remission: Plan: EtOH Abuse * In remission - has not ank since prior to last admission * Continue thiamine and folate * As above, see cirrhosis (5) Type 2 diabetes mellitus: Plan: T2DM * A1c 9.8% in February 2022 * When appropriate -- CC diet, SSI (6) Hepatitis C: Plan: Chronic Hepatitis C * Untreated. Reportedly set-up to see [facility] for treatment * Engage nurse navigator prior to discharge to ensure adequate follow-up for treatment (7) Thrombocytopenia: Plan: Thrombocytopenia * Secondary to cirrhosis. Chronic. Stable. 70 at admission, improved from 27 compared to prior. (8) GERD (gastroesophageal reflux disease): Plan: GERD * PPI (9) Acute hepatitis: Plan: Hepatitis / Elevated LFTs * Likely multifactorial - resolving prior episode of alcoholic hepatitis -- numbers are best they've been in a while * TBili 2.6 / TBili 1.3 / AST 54 / ALT 22 / ALP 146 on admission Plan Code: Full Diet: CC, low Na with fluid restriction PPX: SCDs Dispo: MST. PT/OT evaluations for rehab planning Admission and Anticipated Discharge Date Admission Date: June 12, 2022 Supervising Physician Co-Signing Physician Notes I have seen and examined patient. I agree with the Assessment and Plan as documented by biomedical engineer. Subjective No acute events overnight. Pt evaluated before his paracentesis. He was still complaining of abdominal/scrotal pain and swelling, unchanged from day prior. No new symptoms. Review of Systems Review of Systems: As per HPI Physical Exam Respiratory: Mild wheezing present bilaterally. Wet cough elicited with deep inspiration. No use of accessory muscles at rest. Cardiovascular: Rate/Rhythm: regular rate and regular rhythm Heart Sounds: no click, no gallop, no murmur and no cardiac rub Extremities: + calf tenderness (Mild - Bilateral) and + pedal edema Gastrointestinal (Abdomen): Distant bowel sounds. Diffusely tender to minimal palpation. Diffusely enlarged abdomen with positive fluid wave Skin: Bilateral calf erythema with distinct margins that is nontender to palpation. Dry scaly skin in lower extremities. Neurologic: patellar DTR's 2+ bilat, sensation intact Psychiatric: Orientation: alert and oriented x 3 Genitourinary: Significant scrotal swelling Results & Data Results & Data ([facility]) Vital Signs (Past 12 Hours) Vital Signs Temp Pulse Pulse Resp BP Pulse Ox O2 Del Method 06/14/22 11:19 36.9 C 74 18 114/63 94 Nasal Cannula 06/14/22 07:27 37.4 C 75 18 122/57 L 95 Nasal Cannula 06/14/22 07:23 68 06/14/22 03:04 36.7 C 72 20 107/65 94 Nasal Cannula O2 Flow Rate 06/14/22 11:19 3.5 06/14/22 07:27 4 06/14/22 07:23 06/14/22 03:04 4
[2022-06-14] MEDS: PROPRANOLOL HCL 10 MG TAB PO SCH ×2 (14:23→22:16)
[2022-06-14] MEDS: ASPIRIN 81 MG ECTAB PO SCH (14:24)
[2022-06-14] MEDS: PANTOprazole 40 MG TAB PO SCH ×2 (14:24→22:15)
[2022-06-14] MEDS: ALFUZOSIN HCL 10 MG TAB PO SCH (14:25)
[2022-06-14] MEDS: FOLIC ACID 1 MG TAB PO SCH (14:25)
[2022-06-14] MEDS: rifAXIMin 550 MG TABLET PO SCH ×2 (14:26→22:17)
[2022-06-14] MEDS: THIAMINE HCL 100 MG TAB PO SCH (14:27)
[2022-06-14] MEDS: FUROSEMIDE INJ 20 MG/2 ML VIAL IV SCH (14:28)
[2022-06-14] MEDS: NICOTINE 14 MG/24 HR PATCH TD SCH (14:28)
[2022-06-14] MEDS ORDERED: LORazepam 1 MG TAB PO STA (18:29)
[2022-06-14] MEDS ORDERED: Nursing to Pharmacy Communication SCH (19:45)
[2022-06-14] MEDS: LANTUS PER UNIT CHARGE SQ SCH (22:18)
[2022-06-15 07:56] LABS: Albumin Globulin Ratio 0.6 (0.9-2); Bilirubin,Total 1.6 mg/dl (0.2-1.0); Creatinine Clr Calc Pharmacy 126.1 ml/min; Est GFR (African American) 111.1 ml/min; Est GFR (Non-African American) 95.8 ml/min; Globulin 3.1 gm/dl (2.5-4.0); Potassium 4.3 mmol/L (3.5-5.1); Total Protein 5.1 gm/dl (6.0-8.3)
[2022-06-15] MEDS: INSULIN ASPART PER UNIT SC SCH ×4 (08:29→21:16)
[2022-06-15] MEDS: buprenorphine HCL 8 MG SUBL SL SCH ×3 (08:33→20:21)
[2022-06-15] MEDS: rifAXIMin 550 MG TABLET PO SCH ×2 (08:34→20:12)
[2022-06-15] MEDS: THIAMINE HCL 100 MG TAB PO SCH (08:34)
[2022-06-15] MEDS: ASPIRIN 81 MG ECTAB PO SCH (08:34)
[2022-06-15] MEDS: PANTOprazole 40 MG TAB PO SCH ×2 (08:35→20:12)
[2022-06-15] MEDS: FOLIC ACID 1 MG TAB PO SCH (08:35)
[2022-06-15] MEDS: ALFUZOSIN HCL 10 MG TAB PO SCH (08:36)
[2022-06-15] MEDS: FUROSEMIDE INJ 20 MG/2 ML VIAL IV SCH (08:36)
[2022-06-15] MEDS: LACTULOSE SYRUP 20 GM/30 ML UDC PO SCH ×3 (08:37→20:13)
[2022-06-15] MEDS: NICOTINE 14 MG/24 HR PATCH TD SCH (08:38)
[2022-06-15 09:28] LABS: Hematocrit (blood only) 25.2 % (42.0-52.0); Hemoglobin 8.7 g/dl (14.0-18.0); Mean Corpuscular Hemoglobin 33.2 pg (25.0-34.0); Mean Corpuscular Hgb Conc 34.5 g/dL (32.0-36.0); Mean Corpuscular Volume 96.2 fL (80.0-100.0); Mean Platelet Volume 12.4 fL (9.4-12.4); Platelet Count 58 K/uL (130-400); RDW Coefficient of Variation 18.5 % (11.5-14.5); Red Blood Count 2.62 M/uL (4.70-6.10); White Blood Count 2.36 K/ul (4.8-10.8)
--- NOTE | 2022-06-15 09:47 | Hospitalist Progress Note ---
Date of Service June 15, 2022 Assessment & Plan (1) Abdominal ascites: Plan: This is a 61-year-old male with a history of chronic hepatitis C, cirrhosis, alcohol abuse, IV drug use, OU D on Suboxone, AAA, GERD, type 2 diabetes (A1c 9.8% in 1022), COPD w/ chronic O2 requirement of 2 L, ELINA, hypertension who reported to [facility] for evaluation of shortness of breath, progressive abdominal distention, and scrotal discomfort in the setting of o ngoing subjective fevers. His presentation is concerning for abdominal ascites secondary to known cirrhosis. Abdominoscrotal ascites * Significant abdominal distention with +TTP and extension into the scrotum -- weight 110 on 06/07, now at 132 kg (+22kg weight gain) * Suspect secondary to progressing cirrhotic burden as well as dietary indiscretion (multiple cans of soup a day, endorses using salt shaker with most things) -Paracentesis completed 06/14- 4L removed, transudative ascitic fluid per cytology studies -Discontinued ceftriaxone as SBP ruled out * Pain control: morphine 4mg IV q6h PRN - Low salt diet - Gastroenterology consult 06/15 -Start spironolactone 100 mg, Lasix 40 mg IV daily -Can perform further paracenteses as outpatient -Facilitating hepatology referral more locally due to insurance issues with [facility] -Appears we will not repeat paracentesis in hospital, continue diuresis at present (2) Cirrhosis: Plan: Cirrhosis * Likely multifactorial etiology -- alcohol-related (currently in remission), chronic HCV (untreated) * Currently follows with [facility] - getting established w/ [facility] Hepat[facility] for further care, ?possible transplant * MELD score 17 on admission * Last EGD in 2020 -- no acute concerns * Continue maintenance medications: propranolol, Aldactone, furosemide, lactulose, rifaximin * LFTs with evidence of mild hepatitis -- likely resolving from last visit -- but thankfully no e/o acute decompensation or encephalopathy * Chronic steroid use for elevated MDF and good response to methylpred during last visit deferred given untreated HCV * Hepatotoxic meds to be avoided (3) Venous stasis dermatitis: Plan: Venous Stasis Dermatitis * Suspect lower extremity skin changes are more likely dermatitis with known chronic edema and worsening anasarca * Compression stockings, elevate legs, mobile exercises while here * Continue diuresis therapy for cirrhosis (4) Alcohol abuse, in remission: Plan: EtOH Abuse * In remission - has not drank since prior to last admission * Continue thiamine and folate * As above, see cirrhosis (5) Type 2 diabetes mellitus: Plan: T2DM * A1c 9.8% in February 2022 * When appropriate -- CC diet, SSI (6) Hepatitis C: Plan: Chronic Hepatitis C * Untreated. Reportedly set-up to see [facility] for treatment * Engage nurse navigator prior to discharge to ensure adequate follow-up for treatment (7) Thrombocytopenia: Plan: Thrombocytopenia * Secondary to cirrhosis. Chronic. Stable. 70 at admission, improved from 27 compared to prior. (8) GERD (gastroesophageal reflux disease): Plan: GERD * PPI (9) Acute hepatitis: Plan: Hepatitis / Elevated LFTs * Likely multifactorial - resolving prior episode of alcoholic hepatitis -- numbers are best they've been in a while * TBili 2.6 / TBili 1.3 / AST 54 / ALT 22 / ALP 146 on admission Plan Code: Full Diet: CC, low Na with fluid restriction PPX: SCDs Dispo: MST. PT/OT evaluations pending Admission and Anticipated Discharge Date Admission Date: June 12, 2022 Subjective No acute events overnight. Pt still reporting significant abdominal/scrotal discomfort and pain. States he hasn't felt much better since the paracentesis. No new symptoms. Review of Systems Review of Systems: As per HPI Physical Exam Respiratory: Mild wheezing present bilaterally. Wet cough elicited with deep inspiration. No use of accessory muscles at rest. Cardiovascular: Rate/Rhythm: regular rate and regular rhythm Heart Sounds: no click, no gallop, no murmur and no cardiac rub Extremities: + calf tenderness (Mild - Bilateral) and + pedal edema Gastrointestinal (Abdomen): Distant bowel sounds. Diffusely tender to minimal palpation but improved from day prior. Diffusely enlarged abdomen with positive fluid wave Skin: Bilateral calf erythema with distinct margins that is nontender to palpation. Dry scaly skin in lower extremities. Neurologic: patellar DTR's 2+ bilat, sensation intact Psychiatric: Orientation: alert and oriented x 3 Genitourinary: Significant scrotal swelling Results & Data Results & Data ([facility]) Vital Signs (Past 12 Hours) Vital Signs Temp Pulse Resp BP Pulse Ox O2 Del Method O2 Flow Rate 06/15/22 07:51 36.8 C 67 14 95/58 L 96 Nasal Cannula 4 06/15/22 06:36 36.9 C 68 20 95/56 L 95 Nasal Cannula 4 06/15/22 00:11 Nasal Cannula 4 06/14/22 22:11 36.8 C 73 20 111/63 94 Nasal Cannula 4 Resident Activity Tracking Resident Involvement: Resident Care Provided Care Provided: Adult Hospital Medicine
--- NOTE | 2022-06-15 09:57 | Gastrointestinal Consultation ---
Date of Consultation June 15, 2022 Assessment & Plan (1) Abdominal ascites: (2) Abdominal pain: (3) Cirrhosis: Plan Discussed with Dr. Leach who advised on plan. suspect abdominal pain is related to ascites. - start aldactone 100mg and increase lasix to 40mg daily. - if he requires further paracentesis in the future, he can contact our office as an outpatient. - Continue lactulose 20mg TID and xifaxan 550mg BID. - continue protonix 40mg bid. - he will need to follow up with [facility] as outpatient for treatment of hepatitis C. - will need to work as outpatient on getting hepatology referral for transplant changed since he tells me there were insurance issues with [facility]. I passed on this information to our custody officer, Dat to work on looking into alternatives. Supervising Physician Co-Signing Physician Notes Agree with PAMELA Foreman as above Abd: Soft, distended, +Fluid wave, Scrotal edema Increase Aldactone to 100 mg by mouth daily and Furosemide 40 mg by mouth daily. Recommend complete abstinence from alcohol Recommend 2g Na Diet Continue supportive care History of Present Illness Reason for Consultation: History of liver cirrhosis, s/p paracentesis. Requesting Physician: Dr. Leni Pérez Attending Physician: James Borrego, History of Present Illness Shayla is a 61 year old male with a history of chronic hepatitis C, cirrhosis, alcohol abuse, former IV drug use on Suboxone, AAA, GERD, type II diabetes, COPD w/ chronic O2 requirement of 2 L, ELINA, hypertension who presented to [facility] for evaluation of shortness of breath, progressive abdominal distention, and scrotal discomfort which he tells me started recently in the past week. He underwent a paracentesis with 4 L removed and tells me that this did help with some of the distention but he is still having burning abdominal discomfort that is diffuse as well as testicular pain/swelling. He tells me his main concern is the swelling/pain in his testicles. He tells me this is the first time he has ever needed a paracentesis. At home he has been using lasix 20mg once daily and aldactone 50mg daily. He also uses xifaxan and lactulose as outpatient. He is also having complaints of heartburn and at home uses omeprazole 20mg once daily. He is planned to see [facility] for possible liver transplant evaluation but tells me recently his insurance told him it would not be covered. He is also to see [facility] for treatment of hepatits C. rest of ROS unremarkable. GI asked to see for possible paracentesis as an outpatient if needed. Allergies Allergy/AdvReac Type Severity Reaction Status Date / Time No Known Allergies Allergy Verified 06/12/22 20:21 Home Medications Medication Instructions Recorded Confirmed Type insulin glargine 100 unit/mL (3 80 unit subcut BID 08/20/20 06/12/22 History mL) subcutaneous pen (Lantus Solostar U-100 Insulin) insulin lispro 100 unit/mL 30 unit subcut TIDM 08/20/20 06/12/22 History subcutaneous solution (Humalog U-100 Insulin) aspirin 81 mg tablet,delayed 81 mg PO DAILY 11/25/20 06/12/22 History release (Chavo Low Dose Aspirin) omeprazole 20 mg capsule,delayed 20 mg PO DAILY 06/01/21 06/12/22 History release ipratropium 0.5 mg-albuterol 3 mg 3 ml inhalation QID PRN Shortness 12/27/21 06/12/22 History (2.5 mg base)/3 mL nebulization Of Breath Or Wheezing soln lidocaine 5 % topical ointment 1 applic topical QID PRN Pain 12/27/21 06/12/22 History buprenorphine HCl 8 mg sublingual 8 mg sublingual TID 03/30/22 06/12/22 History tablet lactulose 20 gram/30 mL oral 20 g (30 mL) PO TID #60 mL 04/21/22 06/12/22 Rx solution propranolol 10 mg tablet 10 mg PO BID #60 tabs 04/21/22 06/12/22 Rx rifaximin 550 mg tablet (Xifaxan) 550 mg PO BID 30 days #60 tabs 05/27/22 06/12/22 Rx furosemide 40 mg tablet (Lasix) 40 mg PO DAILY 06/12/22 06/12/22 History gabapentin 800 mg tablet 800 mg PO TID 06/12/22 06/12/22 History Patient History Medical History AAA (abdominal aortic aneurysm) per pt, last evaluated 6 mo ago [facility]? "around 5 cm" -->says was referred to vascular surgery but no appt as of yet Alcoholic cirrhosis Anxiety Bipolar disorder COPD (chronic obstructive pulmonary disease) no inh at present Depression DM type 2 (diabetes mellitus, type 2) IDDM Dysphagia Encephalopathy Fibromyalgia Gastroparesis GERD (gastroesophageal reflux disease) Hepatitis C dx 1 mo ago --> per pt, referred to [facility] in [place] for treatment but no appt as of yet History of DVT (deep vein thrombosis) "few years ago" LLE -- unk etiology -- per pt, no treatment at time of dx History of heroin abuse quit 2017 History of kidney stones History of migraine HTN (hypertension) Hyperlipidemia Hypertension Nocturnal hypoxia per pt, prescribed home O2 @ 2 LPM qHS and PRN daily in past but unable to obtain as of late r/t financial struggles. admits to using sister's oxygen at night when able. 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 Sleep apnea non compliant with CPAP Surgical History History of colonoscopy History of ear surgery as a child History of esophagogastroduodenoscopy (EGD) History of tonsillectomy History of tooth extraction S/P excisional debridement LLE Family History Other No family history of adverse response to anesthesia No significant medical problems Social History Smoking Status: Current every day smoker Tobacco Type: Cigarettes Cigarettes Per Day: 5; Second Hand Exposure: Yes; Do You Dip or Chew Tobacco: No; Tobacco Cessation Education Requested by Patient: Yes Hx Alcohol Use: No Hx Substance Use: Yes Last Used Substance: Unknown Last Used Substance Other:: 2 years ago Substance Use Type Other:: last used meth 2017 Preferred Language: Thai Communication Ability: Effective First Press Operator Required: Yes Beliefs That Will Affect Care: Hindu marital status: Single Current Living Situation: Alone Current Living Situation Comment: unknown How many Children do You have: 0 Other Information That Helps Us Care for You: Yes Feels Safe at Home: Yes Safety Concerns: Feels Safe At This Time Assistive Devices: Cane, Oxygen - Continuous and Walker Review of Systems Review of Systems: All systems reviewed & are unremarkable except as noted in HPI & below Physical Exam Constitutional: WD/WN, vitals as above Respiratory: normal respiratory effort, lungs clear to auscultation Cardiovascular: regular rate, rhythm Gastrointestinal (Abdomen): some ascites noted, abdomen soft, diffuse tenderness. no guarding. Skin: no rashes, warm and dry Psychiatric: Orientation: alert and oriented x 3 Results & Data ([facility]) Vital Signs (Past 12 Hours) Vital Signs Temp Pulse Resp BP Pulse Ox O2 Del Method O2 Flow Rate 06/15/22 07:51 36.8 C 67 14 95/58 L 96 Nasal Cannula 4 06/15/22 06:36 36.9 C 68 20 95/56 L 95 Nasal Cannula 4 06/15/22 00:11 Nasal Cannula 4 06/14/22 22:11 36.8 C 73 20 111/63 94 Nasal Cannula 4 PG Care Time/CCT Total # of Minutes Spent Total Time Spent with Patient: Total time spent is greater than 50% in coordination of care (as documented) at patient's floor/unit and/or counseling patient: Coding Level of Care Code INP/OBS CONSULT LVL 4, 60 MIN Diagnoses Abdominal ascites K70.11 Ascites type: due to alcoholic hepatitis Abdominal pain R10.11 Abdominal location: right upper quadrant Cirrhosis K74.60 Time Spent (min) 60 (1) Abdominal ascites Ascites type: due to alcoholic hepatitis Qualified Code(s): K70.11 - Alcoholic hepatitis with ascites (2) Abdominal pain Abdominal location: right upper quadrant Qualified Code(s): R10.11 - Right upper quadrant pain
[2022-06-15] MEDS: GABAPENTIN 250 MG/5 ML 470 ML BTL PO SCH ×3 (10:25→20:21)
[2022-06-15] MEDS ORDERED: SPIRONOLACTONE 100 MG TAB PO SCH (10:45)
[2022-06-15] MEDS: MoRPHine SULFATE 4 MG/ML 1 ML CARP\\VIAL IV PRN ×3 (10:59→23:54)
--- NOTE | 2022-06-15 11:36 | XRay Report ---
XR chest 1V portable CLINICAL HISTORY: Shortness of breath. COMPARISON STUDY: Chest CT June 02, 2021 and chest radiograph June 12, 2022 FINDINGS: Patient is rotated. There may be trace bilateral pleural effusions. There is no pneumothora x. Cardiomediastinal silhouette is stable. Interstitial thickening persists. Left basilar opacity is increased. IMPRESSION: 1. Cardiomegaly. Pulmonary vascular congestion with suspected mild pulmonary edema. 2. Increase in left basilar opacity. This could reflect atelectasis or consolidation. Radiographic fo llow-up to ensure resolution is recommended. ACT 112: Negative or not required by law. Electronically signed by: Remi Hernandez M.D. 06/15/2022 9:34 AM
[2022-06-15] MEDS: PROPRANOLOL HCL 10 MG TAB PO SCH ×2 (11:47→20:13)
[2022-06-15] MEDS: ALBUT/IPRATROP 3MG/0.5MG NEB 3 ML VIAL INH PRN (12:47)
[2022-06-15 13:03] LABS: Basophils # (auto) 0.02 K/uL (0-0.2); Basophils % (auto) 0.8 %; Eosinophils # (auto) 0.18 K/uL (0-0.50); Eosinophils % (auto) 7.6 %; Immature Granulocytes # (auto) 0.01 K/uL (0.01-0.20); Immature Granulocytes % (auto) 0.4 %; Lymphocytes # (auto) 0.86 K/uL (1.2-3.4); Lymphocytes % (auto) 36.4 %; Monocytes # (auto) 0.37 K/uL (0.11-0.59); Monocytes % (auto) 15.7 %; Neutrophils # (auto) 0.92 K/uL (1.40-6.50); Neutrophils % (auto) 39.1 %
[2022-06-15] MEDS: FUROSEMIDE 40 MG/4 ML VIAL IV SCH (17:08)
[2022-06-15] MEDS: SPIRONOLACTONE 100 MG TAB PO SCH (20:12)
[2022-06-15] MEDS: LANTUS PER UNIT CHARGE SQ SCH (21:16)
[2022-06-16] MEDS: MoRPHine SULFATE 4 MG/ML 1 ML CARP\\VIAL IV PRN ×5 (05:48→20:06)
[2022-06-16 06:27] LABS: Basophils # (auto) 0.03 K/uL (0-0.2); Basophils % (auto) 1.1 %; Eosinophils # (auto) 0.24 K/uL (0-0.50); Eosinophils % (auto) 8.7 %; Hematocrit (blood only) 27.7 % (42.0-52.0); Hemoglobin 9.4 g/dl (14.0-18.0); Immature Granulocytes # (auto) 0.01 K/uL (0.01-0.20); Immature Granulocytes % (auto) 0.4 %; Lymphocytes # (auto) 1.05 K/uL (1.2-3.4); Lymphocytes % (auto) 38.2 %; Mean Corpuscular Hemoglobin 32.6 pg (25.0-34.0); Mean Corpuscular Hgb Conc 33.9 g/dL (32.0-36.0); Mean Corpuscular Volume 96.2 fL (80.0-100.0); Mean Platelet Volume 12.7 fL (9.4-12.4); Monocytes # (auto) 0.38 K/uL (0.11-0.59); Monocytes % (auto) 13.8 %; Neutrophils # (auto) 1.04 K/uL (1.40-6.50); Neutrophils % (auto) 37.8 %; Platelet Count 64 K/uL (130-400); RDW Coefficient of Variation 18.6 % (11.5-14.5); RDW Standard Deviation 65.3 fL (36.4-46.3); Red Blood Count 2.88 M/uL (4.70-6.10); White Blood Count 2.75 K/ul (4.8-10.8)
[2022-06-16 06:41] LABS: Albumin Level 2.1 gm/dl (3.4-5.0); Bilirubin,Total 1.6 mg/dl (0.2-1.0); Calcium 7.9 mg/dl (8.5-10.1); Potassium 4.1 mmol/L (3.5-5.1)
[2022-06-16 06:47] LABS: Albumin Globulin Ratio 0.7 (0.9-2); BUN Creatinine Ratio 21.5 (10-20); Creatinine Clr Calc Pharmacy 134.1 ml/min; Est GFR (African American) 113.9 ml/min; Est GFR (Non-African American) 98.3 ml/min; Globulin 3.2 gm/dl (2.5-4.0); Total Protein 5.3 gm/dl (6.0-8.3)
--- NOTE | 2022-06-16 07:09 | Hospitalist Progress Note ---
Date of Service June 16, 2022 Assessment & Plan (1) Abdominal ascites: Plan: This is a 61-year-old male with a history of chronic hepatitis C, cirrhosis, alcohol abuse, IV drug use, OUD on Suboxone, AAA, GERD, type 2 diabetes (A1c 9.8% in 1022), COPD w/ chronic O2 requirement of 2 L, ELINA, hypertension who reported to [facility] for evaluation of shortness of breath, progressive abdominal distention, scrotal discomfort, and significant (+22kg) weight gain -- consistent with interval development of abdominoscrotal ascites otherwise without e/o acute liver failure. Abdominoscrotal Ascites * Significant abdominal distention with +TTP and extension into the scrotum -- weight 110 on 06/07, on admission at 132 kg (+22kg weight gain) * Suspect secondary to progressing cirrhotic burden as well as dietary indiscretion (multiple cans of soup a day, endorses using salt shaker with most things) * Paracentesis completed 06/14 and 06/16 -- total of 8L removed, transudative ascitic fluid on analysis; no e/o SBP (empiric CFTX d/c) * Pain control: morphine 4mg IV q3h * Gastroenterology following, recommendations appreciated: -- Started spironolactone 100 mg, Lasix 40 mg IV daily -- Facilitating hepatology referral more locally due to insurance issues with [facility] * Patient is still with a profound degree of ascites despite removal of 8L -- Will need to arrange ?plan for serial paracenteses after leaving the hospital; appreciate GI input on how to best do this -- If hemodynamics remain good x 12h after 06/16 paracentesis, should consider pursuing a high-volume removal while here (2) Cirrhosis: Plan: Cirrhosis * Likely multifactorial etiology -- alcohol-related (currently in remission), chronic HCV (untreated) * Currently follows with [facility] - getting established w/ [facility] Hepatology for further care, ?possible transplant * MELD score 17 on admission * Last EGD in 2020 -- no acute concerns * Continue maintenance medications: propranolol, Aldactone, furosemide, lactulose, rifaximin * LFTs with evidence of mild hepatitis -- likely resolving from last visit -- but thankfully no e/o acute decompensation or encephalopathy * Chronic steroid use for elevated MDF and good response to methylpred during last visit deferred given untreated HCV * Hepatotoxic meds to be avoided (3) Venous stasis dermatitis: Plan: Venous Stasis Dermatitis * Suspect lower extremity skin changes are more likely dermatitis with known chronic edema and worsening anasarca * Compression stockings, elevate legs, mobile exercises while here * Continue diuresis therapy for cirrhosis (4) Alcohol abuse, in remission: Plan: EtOH Abuse * In remission - has not drank since prior to last admission * Continue thiamine and folate * As above, see cirrhosis (5) Type 2 diabetes mellitus: Plan: T2DM * A1c 9.8% in February 2022 * SSI, Lantus 50U qHS (normally 80), CC diet (6) Hepatitis C: Plan: Chronic Hepatitis C * Untreated. Reportedly set-up to see [facility] for treatment * Engage nurse navigator prior to discharge to ensure adequate follow-up for treatment (7) Thrombocytopenia: Plan: Thrombocytopenia * Secondary to cirrhosis. Chronic. Stable. 70 at admission, improved from 27 compared to prior. (8) GERD (gastroesophageal reflux disease): Plan: GERD * PPI (9) Acute hepatitis: Plan: Hepatitis / Elevated LFTs * Likely multifactorial - resolving prior episode of alcoholic hepatitis -- numbers are best they've been in a while * Improved since arrival. No present concern of acute liver failure or worsening hepatitis Plan Code: Full Diet: CC, low Na with fluid restriction PPX: SCDs Dispo: MST. PT/OT evaluations pending Admission and Anticipated Discharge Date Admission Date: June 12, 2022 Supervising Physician Co-Signing Physician Notes I also saw the patient concurrent resident physician and confirmed pichardo portions the history and physical examination. Exam 128/71, 70, 20, 36.9, 96% on nasal cannula 2 L/min Alert and oriented. Speaks in full and complete sentences without pause. Heart regular rate and rhythm Nonlabored respirations. Lungs are clear. Extensive ascites throughout the abdominal cavity and scrotum. No focal areas of tenderness nor erythema. Extremities with chronic venous stasis changes, especially distal to the knees. Data WBC 2.75, hemoglobin 9.4, platelet count 64 Sodium 137, potassium 4.1, BUN 17, creatinine 0.79 Total bili 1.6, AST 51, ALT 15, alkaline phosphatase 107 Blood cultures dated 06/12/2022 showed no growth after 48 hours. Peritoneal fluid drawn 06/14/2022 shows no growth to date. Imaging Ultrasound completed during the patient's therapeutic paracentesis today noted significant residual fluid post procedural. It Is noted that 4000 cc of serous ascites was aspirated. Impression and plan Cirrhosis, likely secondary to chronic alcohol use and hepatitis C Anemia, leukopenia, thrombocytopenia, likely secondary to chronic marrow suppression and liver disease I agree with the plan as outlined in the resident documentation. Continue Aldactone 100 mg, Lasix 40 mg IV daily Continue lactulose 20 mg 3 times daily and Xifaxan 550 mg twice daily Continue Protonix 40 mg twice daily Scrotal elevation Will need outpatient evaluation for treatment of hepatitis C and referral for potential liver transplant He will need additional paracentesis as an outpatient and this was discussed with the patient today He will be assessed by physical therapy, at this point do not think he would be able to return home. Additional diagnoses per resident note Subjective NAEO. Still in a good amount of pain. Doesn't feel like things have gotten better at all despite 8L being removed. Review of Systems Review of Systems: as per HPI Physical Exam Physical Exam: General: 61-year o ld male who is triny rt, oriented, and appears in mild di stress secondary t o pain. HEENT: NCA T. - Eyes - Scler a are white, anict yuli, and without injection. - Joan th - MMM - Neck - supple, unable to assess for JVD gi edward habitus. Cardi ac: Normal rate an d regular rhythm; S1 and S2 present with no murmurs, r ubs, or gallops. P ulmonary: Good res piratory effort wi th symmetric expan ella of the chest. No use of accesso ry muscles. Lungs demonstrated coars e breath sounds th roughout. Abdomina l: Normoactive bow el sounds. Extensi vely enlarged abdo men with significa nt TTP and associa jess scattered hailey chiae throughout. : Extensive and progressed edema i nvolving the scrot um without appreci able skin rashes. Extremities: Upper and lower extremi ties are warm and well perfused. 2+ peripheral edema i n the lower extrem ities bilaterally with associated er ythema extending u p above the knees. Non-TTP. Psych: W ell-developed, wel l-nourished, appro priately dressed f or occasion. Behav ior is cooperative and appropriate. Affect is WNL. Ins ight is appropriat e. Results & Data Results & Data ([facility]) Vital Signs (Past 12 Hours) Vital Signs Temp Pulse Resp BP Pulse Ox O2 Del Method O2 Flow Rate 06/16/22 01:13 2 06/15/22 23:09 36.8 C 70 20 101/61 99 Nasal Cannula 3 06/15/22 19:57 36.7 C 67 18 114/66 96 Nasal Cannula 2 Resident Activity Tracking Resident Involvement: Resident Care Provided Care Provided: Adult Hospital Medicine
[2022-06-16] MEDS ORDERED: ALBUMIN 25% 12.5 GM/50 ML VIAL IV PRN (07:19)
[2022-06-16] MEDS: INSULIN ASPART PER UNIT SC SCH ×4 (08:30→21:29)
[2022-06-16] MEDS ORDERED: FUROSEMIDE 40 MG/4 ML VIAL IV SCH (09:00)
[2022-06-16] MEDS: SPIRONOLACTONE 100 MG TAB PO SCH (10:12)
[2022-06-16] MEDS: NICOTINE 14 MG/24 HR PATCH TD SCH (10:12)
[2022-06-16] MEDS: PANTOprazole 40 MG TAB PO SCH ×2 (10:12→21:31)
[2022-06-16] MEDS: rifAXIMin 550 MG TABLET PO SCH ×2 (10:12→21:31)
[2022-06-16] MEDS: FOLIC ACID 1 MG TAB PO SCH (10:12)
[2022-06-16] MEDS: ASPIRIN 81 MG ECTAB PO SCH (10:13)
[2022-06-16] MEDS: THIAMINE HCL 100 MG TAB PO SCH (10:13)
[2022-06-16] MEDS: ALFUZOSIN HCL 10 MG TAB PO SCH (10:13)
[2022-06-16] MEDS: FUROSEMIDE 40 MG/4 ML VIAL IV SCH (10:14)
[2022-06-16] MEDS: LACTULOSE SYRUP 20 GM/30 ML UDC PO SCH ×3 (10:25→21:29)
[2022-06-16] MEDS: PROPRANOLOL HCL 10 MG TAB PO SCH ×2 (10:35→21:30)
[2022-06-16] MEDS: buprenorphine HCL 8 MG SUBL SL SCH ×3 (10:42→21:28)
[2022-06-16] MEDS: GABAPENTIN 250 MG/5 ML 470 ML BTL PO SCH ×3 (10:42→21:29)
--- NOTE | 2022-06-16 11:59 | Ultrasound Report ---
PROCEDURE: Ultrasound-Guided Diagnostic/Therapeutic Paracentesis CLINICAL HISTORY: ascites MEDICATIONS: Subcutaneous Lidocaine 2%. PROCEDURE: The procedure itself was explained to the patient carefully. The patient was brought into the IR suite and a time-out was performed. The patient was positioned supine on the table. Preliminar y ultrasound of the abdomen was performed to determine a safe needle entry site. The most appropriat e approach for safe needle entry site was planned and the site for puncture was marked. The right low er quadrant was prepped and draped in the usual sterile fashion. Subcutaneous 2% lidocaine was used f or local anesthesia along the expected needle tract. Under ultrasound-guidance, an 5 Welsh Yueh needle-sheath was inserted carefully into the peritoneal space towards the abdominal ascites fluid collection. The needle was removed and the sheath was conn ected to tubing and a vacuum suction device. A total of 4000 cc of serous ascites was aspirated. The sheath was removed and a sterile dressing applied. The patient tolerated the procedure well without i mmediate complications. IMPRESSION: Ultrasound-guided therapeutic paracentesis. Of note, significant residual fluid is seen post procedur ally. Electronically signed by: Gerson Betts M.D. 06/16/2022 11:58 AM
[2022-06-16] MEDS ORDERED: Nursing to Pharmacy Communication SCH (13:30)
[2022-06-16] MEDS ORDERED: ALBUMIN 25% 100 mL 25 GM/100 ML VIAL IV ONE (14:45)
[2022-06-16] MEDS: LANTUS PER UNIT CHARGE SQ SCH (21:28)
[2022-06-17] MEDS: MoRPHine SULFATE 4 MG/ML 1 ML CARP\\VIAL IV PRN ×8 (00:06→22:00)
[2022-06-17 06:43] LABS: Hematocrit (blood only) 27.2 % (42.0-52.0); Hemoglobin 9.4 g/dl (14.0-18.0); Mean Corpuscular Hemoglobin 32.4 pg (25.0-34.0); Mean Corpuscular Hgb Conc 34.6 g/dL (32.0-36.0); Mean Corpuscular Volume 93.8 fL (80.0-100.0); Mean Platelet Volume 11.6 fL (9.4-12.4); Platelet Count 60 K/uL (130-400); RDW Coefficient of Variation 18.4 % (11.5-14.5); RDW Standard Deviation 62.9 fL (36.4-46.3); White Blood Count 2.69 K/ul (4.8-10.8)
[2022-06-17 06:45] LABS: Albumin Level 2.3 gm/dl (3.4-5.0); Bilirubin,Total 1.8 mg/dl (0.2-1.0); Calcium 7.7 mg/dl (8.5-10.1); Potassium 3.8 mmol/L (3.5-5.1)
[2022-06-17 06:47] LABS: Basophils # (auto) 0.02 K/uL (0-0.2); Basophils % (auto) 0.7 %; Eosinophils % (auto) 7.4 %; Immature Granulocytes # (auto) 0.01 K/uL (0.01-0.20); Immature Granulocytes % (auto) 0.4 %; Lymphocytes # (auto) 0.99 K/uL (1.2-3.4); Lymphocytes % (auto) 36.8 %; Monocytes # (auto) 0.36 K/uL (0.11-0.59); Monocytes % (auto) 13.4 %; Neutrophils # (auto) 1.11 K/uL (1.40-6.50); Neutrophils % (auto) 41.3 %; Polychromasia 1+; Target Cells 1+
[2022-06-17 06:51] LABS: Albumin Globulin Ratio 0.8 (0.9-2); BUN Creatinine Ratio 20.6 (10-20); Creatinine Clr Calc Pharmacy 157.3 ml/min; Est GFR (African American) 121.2 ml/min; Est GFR (Non-African American) 104.5 ml/min; Globulin 2.9 gm/dl (2.5-4.0); Total Protein 5.2 gm/dl (6.0-8.3)
[2022-06-17] MEDS: ALBUT/IPRATROP 3MG/0.5MG NEB 3 ML VIAL INH PRN (07:55)
[2022-06-17] MEDS: INSULIN ASPART PER UNIT SC SCH ×4 (08:26→22:01)
[2022-06-17] MEDS: FOLIC ACID 1 MG TAB PO SCH (08:32)
[2022-06-17] MEDS: buprenorphine HCL 8 MG SUBL SL SCH ×3 (08:33→21:59)
[2022-06-17] MEDS: ALFUZOSIN HCL 10 MG TAB PO SCH (08:33)
[2022-06-17] MEDS: rifAXIMin 550 MG TABLET PO SCH ×2 (08:33→21:59)
[2022-06-17] MEDS: SPIRONOLACTONE 100 MG TAB PO SCH (08:33)
[2022-06-17] MEDS: ASPIRIN 81 MG ECTAB PO SCH (08:34)
[2022-06-17] MEDS: PROPRANOLOL HCL 10 MG TAB PO SCH ×2 (08:34→22:00)
[2022-06-17] MEDS: NICOTINE 14 MG/24 HR PATCH TD SCH (08:34)
[2022-06-17] MEDS: PANTOprazole 40 MG TAB PO SCH ×2 (08:35→21:59)
[2022-06-17] MEDS: THIAMINE HCL 100 MG TAB PO SCH (08:35)
[2022-06-17] MEDS: FUROSEMIDE 40 MG/4 ML VIAL IV SCH (08:36)
[2022-06-17] MEDS: LACTULOSE SYRUP 20 GM/30 ML UDC PO SCH ×3 (08:36→22:00)
[2022-06-17] MEDS: GABAPENTIN 250 MG/5 ML 470 ML BTL PO SCH ×3 (08:36→22:24)
[2022-06-17] MEDS ORDERED: LORazepam 2 MG/1 ML VIAL IV STA (08:37)
--- NOTE | 2022-06-17 09:52 | Hospitalist Progress Note ---
Date of Service June 17, 2022 Assessment & Plan (1) Abdominal ascites: Plan: This is a 61-year-old male with a history of chronic hepatitis C, cirrhosis, alcohol abuse, IV drug use, OUD on Suboxone, AAA, GERD, type 2 diabetes (A1c 9.8% in 1022), COPD w/ chronic O2 requirement of 2 L, ELINA, hypertension who reported to [facility] for evaluation of shortness of breath, progressive abdominal distention, scrotal discomfort, and significant (+22kg) weight gain -- consistent with interval development of abdominoscrotal ascites otherwise without e/o acute liver failure. Abdominoscrotal Ascites * Significant abdominal distention with +TTP and extension into the scrotum -- weight 110 on 06/07, on admission at 132 kg (+22kg weight gain) * Suspect secondary to progressing cirrhotic burden as well as dietary indiscretion (multiple cans of soup a day, endorses using salt shaker with most things) * Paracentesis completed 06/14 and 06/16 -- total of 8L removed, transudative ascitic fluid on analysis; no e/o SBP (empiric CFTX d/c) -- Plan for repeat paracentesis on 06/19 * Pain control: morphine 4mg IV q3h; will plan to transition to po analgesics * Gastroenterology following, recommendations appreciated: -- Started spironolactone 100 mg, Lasix 40 mg IV daily -- Facilitating hepatology referral more locally due to insurance issues with [facility] * Patient is still with a profound degree of ascites despite removal of 8L; repeat paracentesis planned as above -- ? plan for serial paracenteses after leaving the hospital; appreciate GI input on how to best do this (2) Cirrhosis: Plan: Cirrhosis * Likely multifactorial etiology -- alcohol-related (currently in remission), chronic HCV (untreated) * Currently follows with [facility] - getting established w/ [facility] Hepatology for further care, ?possible transplant * MELD score 17 on admission * Last EGD in 2020 -- no acute concerns * Continue maintenance medications: propranolol, Aldactone, furosemide, lactulose, rifaximin * LFTs with evidence of mild hepatitis -- likely resolving from last visit -- but thankfully no e/o acute decompensation or encephalopathy * Chronic steroid use for elevated MDF and good response to methylpred during last visit deferred given untreated HCV * Hepatotoxic meds to be avoided (3) Venous stasis dermatitis: Plan: Venous Stasis Dermatitis * Suspect lower extremity skin changes are more likely dermatitis with known chronic edema and worsening anasarca * Compression stockings, elevate legs, mobile exercises while here * Continue diuresis therapy for cirrhosis (4) Alcohol abuse, in remission: Plan: EtOH Abuse * In remission - has not drank since prior to last admission * Continue thiamine and folate * As above, see cirrhosis (5) Type 2 diabetes mellitus: Plan: T2DM * A1c 9.8% in February 2022 * SSI, Lantus 50U qHS (normally 80), CC diet (6) Hepatitis C: Plan: Chronic Hepatitis C * Untreated. Reportedly set-up to see [facility] for treatment * Engage nurse navigator prior to discharge to ensure adequate follow-up for treatment (7) Thrombocytopenia: Plan: Thrombocytopenia * Secondary to cirrhosis. Chronic. Stable. 70 at admission, improved from 27 compared to prior. (8) GERD (gastroesophageal reflux disease): Plan: GERD * PPI (9) Acute hepatitis: Plan: Hepatitis / Elevated LFTs * Likely multifactorial - resolving prior episode of alcoholic hepatitis -- numbers are best they've been in a while * Improved since arrival. No present concern of acute liver failure or worsening hepatitis (10) Anxiety: Plan: Anxiety * Patient with episode of increased anxiety / "panic" today * Responded well to 1mg Ativan IV * Continue to monitor * Patient notes hx of anxiety and is trying to get established with outpatient psychiatry * He is not on any medication for anxiety at baseline Plan Code: Full Diet: CC, low Na with fluid restriction PPX: SCDs Dispo: MST. PT/OT evaluations completed and recommending d/c to SNF, placement pending Admission and Anticipated Discharge Date Admission Date: June 12, 2022 Supervising Physician Co-Signing Physician Notes I also saw the patient concurrent resident physician and confirmed pichardo portions the history and physical examination. Upon examination early afternoon, the patient is seen in the bedside chair. He did have an episode of anxiety/panic attack this morning but is much improved this afternoon. He reports that the scrotum is less tender and less swollen when compared to yesterday. Exam 90/48, 68, 20, 36.9, 95% nasal cannula 3 L/min Alert and oriented. Speaks in full and complete sentences without pause. Heart regular rate and rhythm Nonlabored respirations. Lungs are clear. Still with significant abdominal ascites, scrotal swelling, lower extremity edema with his chronic venous stasis. Data Hemoglobin 9.4, stable compared to yesterday. Platelet count 60, relatively stable over the last 3 days. Sodium 137, potassium 3.8, BUN 14, creatinine 0.68 Total bili 1.8, AST 52, ALT 14, alkaline phosphatase 103 Blood cultures dated 06/12/2022 showed no growth after 48 hours. Peritoneal fluid drawn 06/14/2022 shows no growth to date. Imaging Ultrasound completed during the patient's therapeutic paracentesis today noted significant residual fluid post procedural. It Is noted that 4000 cc of serous ascites was aspirated. Impression and plan Cirrhosis, likely secondary to chronic alcohol use and hepatitis C Anemia, leukopenia, thrombocytopenia, likely secondary to chronic marrow suppression and liver disease I agree with the plan as outlined in the resident documentation. Continue Aldactone 100 mg, Lasix 40 mg IV daily; monitor electrolytes Continue lactulose 20 mg 3 times daily and Xifaxan 550 mg twice daily Continue Protonix 40 mg twice daily Scrotal elevation Repeat paracentesis either tomorrow Sunday Will need outpatient evaluation for treatment of hepatitis C and referral for potential liver transplant He will need additional paracentesis as an outpatient and this was discussed with the patient today He will be assessed by physical therapy, at this point do not think he would be able to return home. Additional diagnoses per resident note Subjective Patient with no acute events overnight. States that he feels slightly improved compared to yesterday, especially noting some decreased scrotal swelling. This AM, however, patient states that he started to have an "anxiety attack" which primarily revolves around his medical problems; feels like he "can't swallow," is shaky, and very anxious; feels "as if I could ." He states, "I need 2mg Ativan in order to calm the anxiety down, people try to give me 1mg but it doesn't work. I get 2mg all the time." Patient notes that he is trying to establish care with an outpatient psychiatrist but that he is having difficulty getting established with his insurance. He denies current CP, SOB, urinary symptoms, nausea, or vomiting. Tolerated breakfast w/o difficulty. Review of Systems Review of Systems: as per HPI Physical Exam Physical Exam: GENERAL: Anxious affect but otherwise in no acute distress. Well developed and well nourished. Vital signs reviewed as above. EYES: PERRLA. EOMI. Anicteric sclerae. HENT: Moist mucous membranes. RESPIRATORY: Good respiratory effort with nonlabored respirations. Clear to auscultation bilaterally. No wheezing, rales, or rhonchi. CARDIOVASCULAR: Regular rate and rhythm. No murmurs. No JVD. ABDOMEN: Significant abdominal ascites and scrotal swelling. + bowel sounds. EXTREMITIES: + BLE edema w/ chronic venous stasis changes. SKIN: Warm, dry. NEUROLOGIC: A/O x3. Normal speech. No focal neurological deficits. PSYCHIATRIC: Cooperative. Anxious affect. Results & Data Results & Data ([facility]) Vital Signs (Past 12 Hours) Vital Signs Temp Pulse Resp BP Pulse Ox O2 Del Method O2 Flow Rate 06/17/22 07:55 74 18 99 Nasal Cannula 2 06/17/22 07:21 37.3 C 68 20 93/53 L 94 Nasal Cannula 3 06/17/22 07:18 Nasal Cannula 2 06/16/22 22:45 36.5 C 64 20 124/68 97 Nasal Cannula 2 06/16/22 22:56 Nasal Cannula 2 Laboratory Results 06/17/22 06/17/22 06/17/22 Range/Units 16:45 11:48 08:04 WBC (4.8-10.8) K/ul RBC (4.70-6.10) M/uL Hgb (14.0-18.0) g/dl Hct (42.0-52.0) % MCV (80.0-100.0) fL MCH (25.0-34.0) pg MCHC (32.0-36.0) g/dL RDW Std Deviation (36.4-46.3) fL RDW Coeff of Nabeel (11.5-14.5) % Plt Count (130-400) K/uL MPV (9.4-12.4) fL Immature Gran % (Auto) % Neut % (Auto) % Lymph % (Auto) % Hutchinson % (Auto) % Eos % (Auto) % Baso % (Auto) % Neut # (Auto) (1.40-6.50) K/uL Lymph # (Auto) (1.2-3.4) K/uL Hutchinson # (Auto) (0.11-0.59) K/uL Eos # (Auto) (0-0.50) K/uL Baso # (Auto) (0-0.2) K/uL Immature Gran # (Auto) (0.01-0.20) K/uL Polychromasia Target Cells Sodium (136-145) mmol/L Potassium (3.5-5.1) mmol/L Chloride (98-107) mmol/L Carbon Dioxide (21-32) mmol/L Anion Gap (3-11) BUN (6-23) mg/dl Creatinine (0.6-1.4) mg/dl Est Cr Clr Drug Dosing ml/min Est GFR ( Amer) ml/min Est GFR (Non-Af Amer) ml/min BUN/Creatinine Ratio (10-20) Glucose (70-99(Fasting)) mg/dl POC Glucose 114 H 92 62 L* (70-99) mg/dl Calcium (8.5-10.1) mg/dl Total Bilirubin (0.2-1.0) mg/dl AST (13-39) U/L ALT (7-52) U/L Alkaline Phosphatase (34-104) U/L Total Protein (6.0-8.3) gm/dl Albumin (3.4-5.0) gm/dl Globulin (2.5-4.0) gm/dl Albumin/Globulin Ratio (0.9-2) 06/17/22 06/17/22 06/17/22 Range/Units 08:03 06:04 06:04 WBC 2.69 L (4.8-10.8) K/ul RBC 2.90 L (4.70-6.10) M/uL Hgb 9.4 L (14.0-18.0) g/dl Hct 27.2 L (42.0-52.0) % MCV 93.8 (80.0-100.0) fL MCH 32.4 (25.0-34.0) pg MCHC 34.6 (32.0-36.0) g/dL RDW Std Deviation 62.9 H (36.4-46.3) fL RDW Coeff of Nabeel 18.4 H (11.5-14.5) % Plt Count 60 L (130-400) K/uL MPV 11.6 (9.4-12.4) fL Immature Gran % (Auto) 0.4 % Neut % (Auto) 41.3 % Lymph % (Auto) 36.8 % Hutchinson % (Auto) 13.4 % Eos % (Auto) 7.4 % Baso % (Auto) 0.7 % Neut # (Auto) 1.11 L (1.40-6.50) K/uL Lymph # (Auto) 0.99 L (1.2-3.4) K/uL Hutchinson # (Auto) 0.36 (0.11-0.59) K/uL Eos # (Auto) 0.20 (0-0.50) K/uL Baso # (Auto) 0.02 (0-0.2) K/uL Immature Gran # (Auto) 0.01 (0.01-0.20) K/uL Polychromasia 1+ Target Cells 1+ Sodium 137 (136-145) mmol/L Potassium 3.8 (3.5-5.1) mmol/L Chloride 105 (98-107) mmol/L Carbon Dioxide 30 (21-32) mmol/L Anion Gap 2 L (3-11) BUN 14 (6-23) mg/dl Creatinine 0.68 (0.6-1.4) mg/dl Est Cr Clr Drug Dosing 157.3 ml/min Est GFR ( Amer) 121.2 ml/min Est GFR (Non-Af Amer) 104.5 ml/min BUN/Creatinine Ratio 20.6 H (10-20) Glucose 62 L (70-99(Fasting)) mg/dl POC Glucose 58 L* (70-99) mg/dl Calcium 7.7 L (8.5-10.1) mg/dl Total Bilirubin 1.8 H (0.2-1.0) mg/dl AST 52 H (13-39) U/L ALT 14 (7-52) U/L Alkaline Phosphatase 103 (34-104) U/L Total Protein 5.2 L (6.0-8.3) gm/dl Albumin 2.3 L (3.4-5.0) gm/dl Globulin 2.9 (2.5-4.0) gm/dl Albumin/Globulin Ratio 0.8 L (0.9-2) 01/27/23 Range/Units 20:37 WBC (4.8-10.8) K/ul RBC (4.70-6.10) M/uL Hgb (14.0-18.0) g/dl Hct (42.0-52.0) % MCV (80.0-100.0) fL MCH (25.0-34.0) pg MCHC (32.0-36.0) g/dL RDW Std Deviation (36.4-46.3) fL RDW Coeff of Nabeel (11.5-14.5) % Plt Count (130-400) K/uL MPV (9.4-12.4) fL Immature Gran % (Auto) % Neut % (Auto) % Lymph % (Auto) % Hutchinson % (Auto) % Eos % (Auto) % Baso % (Auto) % Neut # (Auto) (1.40-6.50) K/uL Lymph # (Auto) (1.2-3.4) K/uL Hutchinson # (Auto) (0.11-0.59) K/uL Eos # (Auto) (0-0.50) K/uL Baso # (Auto) (0-0.2) K/uL Immature Gran # (Auto) (0.01-0.20) K/uL Polychromasia Target Cells Sodium (136-145) mmol/L Potassium (3.5-5.1) mmol/L Chloride (98-107) mmol/L Carbon Dioxide (21-32) mmol/L Anion Gap (3-11) BUN (6-23) mg/dl Creatinine (0.6-1.4) mg/dl Est Cr Clr Drug Dosing ml/min Est GFR ( Amer) ml/min Est GFR (Non-Af Amer) ml/min BUN/Creatinine Ratio (10-20) Glucose (70-99(Fasting)) mg/dl POC Glucose 129 H (70-99) mg/dl Calcium (8.5-10.1) mg/dl Total Bilirubin (0.2-1.0) mg/dl AST (13-39) U/L ALT (7-52) U/L Alkaline Phosphatase (34-104) U/L Total Protein (6.0-8.3) gm/dl Albumin (3.4-5.0) gm/dl Globulin (2.5-4.0) gm/dl Albumin/Globulin Ratio (0.9-2) Diagnostic Findings [place], [place] [phone] Ultrasound Report Patient:KAYODE GREENFIELD JR Admit Date:06/12/22 MR#:[id number] Address1:[address] Acct ID:[id number] Address2: Date:1960 [facility] Zip:[place] [id number] Age:61 Location:2N Sex:M Room/Bed:[facility] Att Phy:Regla Farris DO Diagnosis:SHORTNESS OF BREATH, ACUTE LIVER FAILURE Lillie Phy:Bobby Leslie MD Service Date:06/16/22 Fam Phy: Interpreting Phy:Gerson Betts MDAdmit Phy:Lencho Torres MD Ordering Phy:Leni Pérez MD cc: ~ PROCEDURE: Ultrasound-Guided Diagnostic/Therapeutic Paracentesis CLINICAL HISTORY: ascites MEDICATIONS: Subcutaneous Lidocaine 2%. PROCEDURE: The procedure itself was explained to the patient carefully. The patient was brought into the IR suite and a time-out was performed. The patient was positioned supine on the table. Preliminary ultrasound of the abdomen was performed to determine a safe needle entry site. The most appropriate approach for safe needle entry site was planned and the site for puncture was marked. The right lower quadrant was prepped and draped in the usual sterile fashion. Subcutaneous 2% lidocaine was used for local anesthesia along the expected needle tract. Under ultrasound-guidance, an 5 Cuban Yueh needle-sheath was inserted carefully into the peritoneal space towards the abdominal ascites fluid collection. The needle was removed and the sheath was connected to tubing and a vacuum suction device. A total of 4000 cc of serous ascites was aspirated. The sheath was removed and a sterile dressing applied. The patient tolerated the procedure well without immediate complications. IMPRESSION: Ultrasound-guided therapeutic paracentesis. Of note, significant residual fluid is seen post procedurally. Electronically signed by: Gerson Betts M.D. 06/16/2022 11:58 AM Dictated:06/16/22 115 Transcribed: 06/16/22 115 Resident Activity Tracking Resident Involvement: Resident Care Provided Care Provided: [facility]
[2022-06-17] MEDS ORDERED: POLYETHYLENE (MIRALAX) 17 GM PACK PO PRN (19:47)
[2022-06-17] MEDS: LANTUS PER UNIT CHARGE SQ SCH (22:01)
[2022-06-18] MEDS: MoRPHine SULFATE 4 MG/ML 1 ML CARP\\VIAL IV PRN ×6 (01:01→17:19)
[2022-06-18] MEDS: THIAMINE HCL 100 MG TAB PO SCH (07:25)
[2022-06-18] MEDS: PANTOprazole 40 MG TAB PO SCH ×2 (07:25→20:29)
[2022-06-18] MEDS: rifAXIMin 550 MG TABLET PO SCH ×2 (07:25→20:28)
[2022-06-18] MEDS: PROPRANOLOL HCL 10 MG TAB PO SCH ×2 (07:25→20:29)
[2022-06-18] MEDS: ALFUZOSIN HCL 10 MG TAB PO SCH (07:25)
[2022-06-18] MEDS: ASPIRIN 81 MG ECTAB PO SCH (07:26)
[2022-06-18] MEDS: SPIRONOLACTONE 100 MG TAB PO SCH (07:26)
[2022-06-18] MEDS: buprenorphine HCL 8 MG SUBL SL SCH ×3 (07:26→20:28)
[2022-06-18] MEDS: FOLIC ACID 1 MG TAB PO SCH (07:26)
[2022-06-18] MEDS: FUROSEMIDE 40 MG/4 ML VIAL IV SCH (07:27)
[2022-06-18] MEDS: LACTULOSE SYRUP 20 GM/30 ML UDC PO SCH ×4 (07:28→20:45)
[2022-06-18] MEDS: NICOTINE 14 MG/24 HR PATCH TD SCH (07:29)
[2022-06-18 07:34] LABS: Hematocrit (blood only) 27.8 % (42.0-52.0); Hemoglobin 9.6 g/dl (14.0-18.0); Mean Corpuscular Hemoglobin 32.3 pg (25.0-34.0); Mean Corpuscular Hgb Conc 34.5 g/dL (32.0-36.0); Mean Corpuscular Volume 93.6 fL (80.0-100.0); Mean Platelet Volume 11.1 fL (9.4-12.4); Platelet Count 57 K/uL (130-400); RDW Coefficient of Variation 17.8 % (11.5-14.5); Red Blood Count 2.97 M/uL (4.70-6.10); White Blood Count 3.04 K/ul (4.8-10.8)
--- NOTE | 2022-06-18 07:44 | Hospitalist Progress Note ---
Date of Service June 18, 2022 Assessment & Plan (1) Abdominal ascites: Plan: This is a 61-year-old male with a history of chronic hepatitis C, cirrhosis, alcohol abuse, IV drug use, OUD on Suboxone, AAA, GERD, type 2 diabetes (A1c 9.8% in 1022), COPD w/ chronic O2 requirement of 2 L, ELINA, hypertension who reported to [facility] for evaluation of shortness of breath, progressive abdominal distention, scrotal discomfort, and significant (+22kg) weight gain -- consistent with interval development of abdominoscrotal ascites otherwise without e/o acute liver failure. Abdominoscrotal Ascites * Significant abdominal distention with +TTP and extension into the scrotum -- weight 110 on 06/07, on admission at 132 kg (+22kg weight gain) * Suspect secondary to progressing cirrhotic burden as well as dietary indiscretion (multiple cans of soup a day, endorses using salt shaker with most things) * Paracentesis completed 06/14 and 06/16 -- total of 8L removed, transudative ascitic fluid on analysis; no e/o SBP (empiric CFTX d/c) -- Plan for repeat paracentesis tomorrow, 06/19 * Continue with morphine 4mg IV q3h prn for pain control; goal to transition to po analgesics * Gastroenterology following, recommendations appreciated: -- Started spironolactone 100 mg, Lasix 40 mg IV daily -- Facilitating hepatology referral more locally due to insurance issues with [facility] * Patient is still with a profound degree of ascites despite removal of 8L; repeat paracentesis planned as above -- ? plan for serial paracenteses after leaving the hospital; appreciate GI input on how to best do this (2) Cirrhosis: Plan: Cirrhosis * Likely multifactorial etiology -- alcohol-related (currently in remission), chronic HCV (untreated) * Currently follows with [facility] - getting established w/ [facility] Hepatology for further care, ?possible transplant * MELD score 17 on admission * Last EGD in 2020 -- no acute concerns * Continue maintenance medications: propranolol, Aldactone, furosemide, lactulose, rifaximin * LFTs with evidence of mild hepatitis -- likely resolving from last visit -- but thankfully no e/o acute decompensation or encephalopathy * Chronic steroid use for elevated MDF and good response to methylpred during last visit deferred given untreated HCV * Hepatotoxic meds to be avoided (3) Venous stasis dermatitis: Plan: Venous Stasis Dermatitis * Suspect lower extremity skin changes are more likely dermatitis with known chronic edema and worsening anasarca * Compression stockings, elevate legs, mobile exercises while here * Continue diuresis therapy for cirrhosis (4) Alcohol abuse, in remission: Plan: EtOH Abuse * In remission - has not drank since prior to last admission * Continue thiamine and folate * As above, see cirrhosis (5) Type 2 diabetes mellitus: Plan: T2DM * A1c 9.8% in February 2022 * SSI, Lantus 50U qHS (normally 80), CC diet (6) Hepatitis C: Plan: Chronic Hepatitis C * Untreated. Reportedly set-up to see [facility] for treatment * Engage nurse navigator prior to discharge to ensure adequate follow-up for treatment (7) Thrombocytopenia: Plan: Thrombocytopenia * Secondary to cirrhosis. Chronic. Stable. 70 at admission, improved from 27 compared to prior. (8) GERD (gastroesophageal reflux disease): Plan: GERD * PPI (9) Acute hepatitis: Plan: Hepatitis / Elevated LFTs * Likely multifactorial - resolving prior episode of alcoholic hepatitis -- numbers are best they've been in a while * Improved since arrival. No present concern of acute liver failure or worsening hepatitis (10) Anxiety: Plan: Anxiety * Patient with episode of increased anxiety / "panic" today * Responded well to 1mg Ativan IV * Continue to monitor * Patient notes hx of anxiety and is trying to get established with outpatient psychiatry * He is not on any medication for anxiety at baseline Plan Code: Full Diet: CC, low Na with fluid restriction PPX: SCDs Dispo: MST. PT/OT evaluations completed and recommending d/c to SNF, placement pending Admission and Anticipated Discharge Date Admission Date: June 12, 2022 Supervising Physician Co-Signing Physician Notes I also saw the patient concurrent resident physician and confirmed pichardo portions the history and physical examination. He notes some increased discomfort of the scrotum, and probably increased swelling. We discussed this may be secondary to him being in his chair for more than his bed yesterday. Continues to complain of difficulty sleeping. He had taken Ambien 10 mg at home successfully. He says the melatonin last night was not that helpful. Exam 95/57, 63, 18, 37 C, 90% room air Alert and oriented. Speaks in full and complete sentences without pause. Heart regular Respirations nonlabored Data Hemoglobin 9.6, stable compared to yesterday. Platelet count 57, relatively stable over the last 4 days. Sodium 137, potassium 3.8, BUN 12, creatinine 0.64 Total bili 1.7, AST 54, ALT 15, alkaline phosphatase 105 Blood cultures dated 06/12/2022 showed no growth after 48 hours. Peritoneal fluid drawn 06/14/2022 shows no growth to date. Imaging Ultrasound completed during the patient's therapeutic paracentesis today noted significant residual fluid post procedural. It Is noted that 4000 cc of serous ascites was aspirated. Impression and plan Cirrhosis, likely secondary to chronic alcohol use and hepatitis C Anemia, leukopenia, thrombocytopenia, likely secondary to chronic marrow suppression and liver disease I agree with the plan as outlined in the resident documentation. Continue Aldactone 100 mg, Lasix 40 mg IV daily; monitor electrolytes Continue lactulose 20 mg 3 times daily and Xifaxan 550 mg twice daily Continue Protonix 40 mg twice daily Scrotal elevation Repeat paracentesis either today or tomorrow Will need outpatient evaluation for treatment of hepatitis C and referral for potential liver transplant He will need additional paracentesis as an outpatient and this was discussed with the patient today Physical therapy recommends skilled PT while admitted with [facility] for continued rehabilitation for safe return to home Additional diagnoses per resident note Subjective Patient seen and evaluated at bedside this morning. Notes that he did not sleep well last night; has used Ambien in the past. States that melatonin provided last night was not of benefit. He notes worsening abdominal/scrotal pain with associated worsening abdominal/scrotal swelling. He is currently sitting in chair at bedside using a towel as a scrotal sling. Is tolerating po intake without nausea or vomiting. No CP or SOB. Review of Systems Review of Systems: as per HPI Physical Exam Physical Exam: GENERAL: No acute distress. Well developed and well nourished. Vital signs reviewed as above. EYES: PERRLA. EOMI. Anicteric sclerae. HENT: Moist mucous membranes. RESPIRATORY: Good respiratory effort with nonlabored respirations. Clear to auscultation bilaterally. No wheezing, rales, or rhonchi. CARDIOVASCULAR: Regular rate and rhythm. No murmurs. No JVD. ABDOMEN: Significant abdominal ascites and scrotal swelling. + hepatomegaly. + diffuse abd TTP most prominent over RUQ. + bowel sounds. EXTREMITIES: + BLE edema w/ chronic venous stasis changes. SKIN: Warm, dry. NEUROLOGIC: A/O x3. Normal speech. No focal neurological deficits. PSYCHIATRIC: Cooperative. Normal mood and affect. Results & Data Results & Data ([facility]) Vital Signs (Past 12 Hours) Vital Signs Temp Pulse Resp BP Pulse Ox O2 Del Method O2 Flow Rate 06/17/22 22:56 36.8 C 74 18 135/79 97 Nasal Cannula 3 06/17/22 20:00 Nasal Cannula 2 Laboratory Results 06/18/22 06/18/22 06/18/22 Range/Units 11:49 07:55 06:38 WBC (4.8-10.8) K/ul RBC (4.70-6.10) M/uL Hgb (14.0-18.0) g/dl Hct (42.0-52.0) % MCV (80.0-100.0) fL MCH (25.0-34.0) pg MCHC (32.0-36.0) g/dL RDW Std Deviation (36.4-46.3) fL RDW Coeff of Nabeel (11.5-14.5) % Plt Count (130-400) K/uL MPV (9.4-12.4) fL Immature Gran % (Auto) % Neut % (Auto) % Lymph % (Auto) % [place] % (Auto) % Eos % (Auto) % Baso % (Auto) % Neut # (Auto) (1.40-6.50) K/uL Lymph # (Auto) (1.2-3.4) K/uL [place] # (Auto) (0.11-0.59) K/uL Eos # (Auto) (0-0.50) K/uL Baso # (Auto) (0-0.2) K/uL Immature Gran # (Auto) (0.01-0.20) K/uL Target Cells Sodium 137 (136-145) mmol/L Potassium 3.8 (3.5-5.1) mmol/L Chloride 105 (98-107) mmol/L Carbon Dioxide 28 (21-32) mmol/L Anion Gap 4 (3-11) BUN 12 (6-23) mg/dl Creatinine 0.64 (0.6-1.4) mg/dl Est Cr Clr Drug Dosing 166.9 ml/min Est GFR ( Amer) 124.2 ml/min Est GFR (Non-Af Amer) 107.2 ml/min BUN/Creatinine Ratio 18.8 (10-20) Glucose 69 L (70-99(Fasting)) mg/dl POC Glucose 107 H 87 (70-99) mg/dl Calcium 8.1 L (8.5-10.1) mg/dl Total Bilirubin 1.7 H (0.2-1.0) mg/dl AST 54 H (13-39) U/L ALT 15 (7-52) U/L Alkaline Phosphatase 105 H (34-104) U/L Total Protein 5.6 L (6.0-8.3) gm/dl Albumin 2.3 L (3.4-5.0) gm/dl Globulin 3.3 (2.5-4.0) gm/dl Albumin/Globulin Ratio 0.7 L (0.9-2) 06/18/22 06/17/22 06/17/22 Range/Units 06:38 20:14 16:45 WBC 3.04 L (4.8-10.8) K/ul RBC 2.97 L (4.70-6.10) M/uL Hgb 9.6 L (14.0-18.0) g/dl Hct 27.8 L (42.0-52.0) % MCV 93.6 (80.0-100.0) fL MCH 32.3 (25.0-34.0) pg MCHC 34.5 (32.0-36.0) g/dL RDW Std Deviation 60.0 H (36.4-46.3) fL RDW Coeff of Nabeel 17.8 H (11.5-14.5) % Plt Count 57 L (130-400) K/uL MPV 11.1 (9.4-12.4) fL Immature Gran % (Auto) 0.3 % Neut % (Auto) 43.8 % Lymph % (Auto) 34.9 % [place] % (Auto) 11.8 % Eos % (Auto) 8.2 % Baso % (Auto) 1.0 % Neut # (Auto) 1.33 L (1.40-6.50) K/uL Lymph # (Auto) 1.06 L (1.2-3.4) K/uL [place] # (Auto) 0.36 (0.11-0.59) K/uL Eos # (Auto) 0.25 (0-0.50) K/uL Baso # (Auto) 0.03 (0-0.2) K/uL Immature Gran # (Auto) 0.01 (0.01-0.20) K/uL Target Cells 1+ Sodium (136-145) mmol/L Potassium (3.5-5.1) mmol/L Chloride (98-107) mmol/L Carbon Dioxide (21-32) mmol/L Anion Gap (3-11) BUN (6-23) mg/dl Creatinine (0.6-1.4) mg/dl Est Cr Clr Drug Dosing ml/min Est GFR ( Amer) ml/min Est GFR (Non-Af Amer) ml/min BUN/Creatinine Ratio (10-20) Glucose (70-99(Fasting)) mg/dl POC Glucose 103 H 114 H (70-99) mg/dl Calcium (8.5-10.1) mg/dl Total Bilirubin (0.2-1.0) mg/dl AST (13-39) U/L ALT (7-52) U/L Alkaline Phosphatase (34-104) U/L Total Protein (6.0-8.3) gm/dl Albumin (3.4-5.0) gm/dl Globulin (2.5-4.0) gm/dl Albumin/Globulin Ratio (0.9-2) Resident Activity Tracking Resident Involvement: Resident Care Provided Care Provided: Adult Hospital Medicine
[2022-06-18 07:45] LABS: Basophils # (auto) 0.03 K/uL (0-0.2); Eosinophils # (auto) 0.25 K/uL (0-0.50); Eosinophils % (auto) 8.2 %; Immature Granulocytes # (auto) 0.01 K/uL (0.01-0.20); Immature Granulocytes % (auto) 0.3 %; Lymphocytes # (auto) 1.06 K/uL (1.2-3.4); Lymphocytes % (auto) 34.9 %; Monocytes # (auto) 0.36 K/uL (0.11-0.59); Monocytes % (auto) 11.8 %; Neutrophils # (auto) 1.33 K/uL (1.40-6.50); Neutrophils % (auto) 43.8 %; Target Cells 1+
[2022-06-18] MEDS: INSULIN ASPART PER UNIT SC SCH ×4 (08:49→20:59)
[2022-06-18] MEDS: GABAPENTIN 250 MG/5 ML 470 ML BTL PO SCH ×3 (09:00→20:59)
[2022-06-18] MEDS: ALBUT/IPRATROP 3MG/0.5MG NEB 3 ML VIAL INH PRN (09:13)
[2022-06-18 11:17] LABS: Albumin Globulin Ratio 0.7 (0.9-2); Albumin Level 2.3 gm/dl (3.4-5.0); BUN Creatinine Ratio 18.8 (10-20); Bilirubin,Total 1.7 mg/dl (0.2-1.0); Calcium 8.1 mg/dl (8.5-10.1); Creatinine Clr Calc Pharmacy 166.9 ml/min; Est GFR (African American) 124.2 ml/min; Est GFR (Non-African American) 107.2 ml/min; Globulin 3.3 gm/dl (2.5-4.0); Potassium 3.8 mmol/L (3.5-5.1); Total Protein 5.6 gm/dl (6.0-8.3)
[2022-06-18] MEDS: LANTUS PER UNIT CHARGE SQ SCH (20:52)
[2022-06-18] MEDS ORDERED: MoRPHine SULFATE 2 MG/ML CARP IV STA (23:43)
[2022-06-19] MEDS: ASPIRIN 81 MG ECTAB PO SCH (07:33)
[2022-06-19] MEDS: GABAPENTIN 250 MG/5 ML 470 ML BTL PO SCH ×3 (07:34→21:21)
[2022-06-19] MEDS: PROPRANOLOL HCL 10 MG TAB PO SCH ×2 (07:34→21:17)
[2022-06-19] MEDS: buprenorphine HCL 8 MG SUBL SL SCH ×3 (07:34→21:14)
[2022-06-19] MEDS: SPIRONOLACTONE 100 MG TAB PO SCH (07:35)
[2022-06-19] MEDS: PANTOprazole 40 MG TAB PO SCH ×2 (07:35→21:17)
[2022-06-19] MEDS: rifAXIMin 550 MG TABLET PO SCH ×2 (07:35→21:16)
[2022-06-19] MEDS: FOLIC ACID 1 MG TAB PO SCH (07:36)
[2022-06-19] MEDS: THIAMINE HCL 100 MG TAB PO SCH (07:36)
[2022-06-19] MEDS: ALFUZOSIN HCL 10 MG TAB PO SCH (07:36)
[2022-06-19] MEDS: FUROSEMIDE 40 MG/4 ML VIAL IV SCH (07:36)
[2022-06-19 07:37] LABS: Hematocrit (blood only) 26.6 % (42.0-52.0); Hemoglobin 9.2 g/dl (14.0-18.0); Mean Corpuscular Hemoglobin 33.5 pg (25.0-34.0); Mean Corpuscular Hgb Conc 34.6 g/dL (32.0-36.0); Mean Corpuscular Volume 96.7 fL (80.0-100.0); Mean Platelet Volume 11.4 fL (9.4-12.4); Platelet Count 50 K/uL (130-400); RDW Coefficient of Variation 17.8 % (11.5-14.5); RDW Standard Deviation 62.7 fL (36.4-46.3); Red Blood Count 2.75 M/uL (4.70-6.10); White Blood Count 3.49 K/ul (4.8-10.8)
[2022-06-19] MEDS: NICOTINE 14 MG/24 HR PATCH TD SCH (07:37)
[2022-06-19] MEDS: LACTULOSE SYRUP 20 GM/30 ML UDC PO SCH ×3 (07:39→21:16)
[2022-06-19 07:45] LABS: Basophils # (auto) 0.03 K/uL (0-0.2); Basophils % (auto) 0.9 %; Eosinophils # (auto) 0.22 K/uL (0-0.50); Eosinophils % (auto) 6.3 %; Immature Granulocytes # (auto) 0.01 K/uL (0.01-0.20); Immature Granulocytes % (auto) 0.3 %; Lymphocytes # (auto) 1.12 K/uL (1.2-3.4); Lymphocytes % (auto) 32.1 %; Monocytes # (auto) 0.37 K/uL (0.11-0.59); Monocytes % (auto) 10.6 %; Neutrophils # (auto) 1.74 K/uL (1.40-6.50); Neutrophils % (auto) 49.8 %; Target Cells 1+
[2022-06-19] MEDS: INSULIN ASPART PER UNIT SC SCH ×4 (07:55→21:15)
[2022-06-19 07:56] LABS: Albumin Level 2.1 gm/dl (3.4-5.0); Bilirubin,Total 1.6 mg/dl (0.2-1.0); Calcium 7.8 mg/dl (8.5-10.1); Potassium 3.6 mmol/L (3.5-5.1)
[2022-06-19] MEDS: MoRPHine SULFATE 4 MG/ML 1 ML CARP\\VIAL IV PRN ×3 (08:00→16:17)
[2022-06-19 08:02] LABS: Albumin Globulin Ratio 0.7 (0.9-2); BUN Creatinine Ratio 14.1 (10-20); Creatinine Clr Calc Pharmacy 150.4 ml/min; Est GFR (Non-African American) 102.7 ml/min; Total Protein 5.1 gm/dl (6.0-8.3)
--- NOTE | 2022-06-19 14:17 | Ultrasound Report ---
ULTRASOUND GUIDED THERAPEUTIC PARACENTESIS CLINICAL HISTORY: Ascites. COMPARISON STUDY: Ultrasound guided paracentesis June 16, 2022. PROCEDURE: The risks, benefits, and alternatives to the procedure were discussed with the patient inc luding the risk of bleeding, infection and injury to adjacent structures. The patient agreed to the procedure and informed written consent was obtained. Following real-time ultrasound localization, the skin of the left lower quadrant was prepped and draped. Following local anesthesia with Xylocaine, t he sheath paracentesis needle was inserted and approximately 4.4 liters of straw-colored fluid was re moved by vacuum suction. The patient tolerated the procedure well and no immediate complications were evident. IMPRESSION: Ultrasound-guided paracentesis with removal of 4.4 liters of ascites. ACT 112: Negative or not required by law. Electronically signed by: Remi Hernandez M.D. 06/19/2022 2:16 PM
--- NOTE | 2022-06-19 17:54 | Hospitalist Progress Note ---
Date of Service June 19, 2022 Assessment & Plan (1) Abdominal ascites: Plan: This is a 61-year-old male with a history of chronic hepatitis C, cirrhosis, alcohol abuse, IV drug use, OUD on Suboxone, AAA, GERD, type 2 diabetes (A1c 9.8% in 1022), COPD w/ chronic O2 requirement of 2 L, ELINA, hypertension who reported to [facility] for evaluation of shortness of breath, progressive abdominal distention, scrotal discomfort, and significant (+22kg) weight gain -- consistent with interval development of abdominoscrotal ascites otherwise without e/o acute liver failure. Abdominoscrotal Ascites * Significant abdominal distention with +TTP and extension into the scrotum -- weight 110 on 06/07, on admission at 132 kg (+22kg weight gain) * Suspect secondary to progressing cirrhotic burden as well as dietary indiscretion (multiple cans of soup a day, endorses using salt shaker with most things) * Paracentesis completed 06/14 and 06/16 -- total of 8L removed, transudative ascitic fluid on analysis; no e/o SBP (empiric CFTX d/c) -- Another 4.4 L of fluid taken off today. * Continue with morphine 4mg IV q3h prn for pain control; goal to transition to po analgesics * Gastroenterology following, recommendations appreciated: -- Started spironolactone 100 mg, Lasix 40 mg IV daily -- Facilitating hepatology referral more locally due to insurance issues with [facility] * Patient is still with a profound degree of ascites despite removal of 12.4L total -- ? plan for serial paracenteses after leaving the hospital; appreciate GI input on how to best do this (2) Cirrhosis: Plan: Cirrhosis * Likely multifactorial etiology -- alcohol-related (currently in remission), chronic HCV (untreated) * Currently follows with [facility] - getting established w/ [facility] Hepatology for further care, ?possible transplant * MELD score 17 on admission * Last EGD in 2020 -- no acute concerns * Continue maintenance medications: propranolol, Aldactone, furosemide, lactulose, rifaximin * LFTs with evidence of mild hepatitis -- likely resolving from last visit -- but thankfully no e/o acute decompensation or encephalopathy * Chronic steroid use for elevated MDF and good response to methylpred during last visit deferred given untreated HCV * Hepatotoxic meds to be avoided (3) Venous stasis dermatitis: Plan: Venous Stasis Dermatitis * Suspect lower extremity skin changes are more likely dermatitis with known chronic edema and worsening anasarca * Compression stockings, elevate legs, mobile exercises while here * Continue diuresis therapy for cirrhosis (4) Alcohol abuse, in remission: Plan: EtOH Abuse * In remission - has not drank since prior to last admission * Continue thiamine and folate * As above, see cirrhosis (5) Type 2 diabetes mellitus: Plan: T2DM * A1c 9.8% in February 2022 * SSI, Lantus 50U qHS (normally 80), CC diet (6) Hepatitis C: Plan: Chronic Hepatitis C * Untreated. Reportedly set-up to see [facility] for treatment * Engage nurse navigator prior to discharge to ensure adequate follow-up for treatment (7) Thrombocytopenia: Plan: Thrombocytopenia * Secondary to cirrhosis. Chronic. Stable. 70 at admission, improved from 27 compared to prior. (8) GERD (gastroesophageal reflux disease): Plan: GERD * PPI (9) Acute hepatitis: Plan: Hepatitis / Elevated LFTs * Likely multifactorial - resolving prior episode of alcoholic hepatitis -- numbers are best they've been in a while * Improved since arrival. No present concern of acute liver failure or worsening hepatitis (10) Anxiety: Plan: Anxiety * Patient with episode of increased anxiety / "panic" today * Responded well to 1mg Ativan IV * Continue to monitor * Patient notes hx of anxiety and is trying to get established with outpatient psychiatry * He is not on any medication for anxiety at baseline Plan Code: Full Diet: CC, low Na with fluid restriction PPX: SCDs Dispo: MST. PT/OT evaluations completed and recommending d/c to SNF, placement pending Admission and Anticipated Discharge Date Admission Date: June 12, 2022 Supervising Physician Co-Signing Physician Notes I personally examined the patient and verified all pichardo points of history and exam, discussed case, and agree with decision making with Dr Trivedi feeling generally better after 4L paracentesis. Scrotum still more or less the same swollen, but skin less tense. Discussed sodium intake. Vitals noted, in general he is awake and alert pleasant no distress. HEENT normocephalic atraumatic mucous membranes moist. Breathing unlabored no accessory muscle use good effort. Skin shows no rashes no pallor or icterus. Neuro without focal deficits. Scrotum markedly swollen. Ascites/scrotal edemadue to cirrhosis with portal hypertension.another 4L removed. elevate scrotum. continue diuresis//follow creatinine. educated on sodium. follow closely. PT/OT. work on rehab. otherwise as above Subjective Patient seen at bedside this morning. No acute events reported overnight. Patient has no complaints at this time and is mostly sleeping throughout the day. No new or meaningful HPI at this time. Review of Systems Review of Systems: Per HPI Physical Exam Physical Exam: GENERAL: No acute distress. Well developed and well nourished. Vital signs reviewed as above. EYES: PERRLA. EOMI. Anicteric sclerae. HENT: Moist mucous membranes. RESPIRATORY: Good respiratory effort with nonlabored respirations. Clear to auscultation bilaterally. No wheezing, rales, or rhonchi. CARDIOVASCULAR: Regular rate and rhythm. No murmurs. No JVD. ABDOMEN: Significant abdominal ascites and scrotal swelling. + hepatomegaly. + diffuse abd TTP most prominent over RUQ. + bowel sounds. EXTREMITIES: + BLE edema w/ chronic venous stasis changes. SKIN: Warm, dry. NEUROLOGIC: A/O x3. Normal speech. No focal neurological deficits. PSYCHIATRIC: Cooperative. Normal mood and affect. Results & Data Results & Data ([facility]) Vital Signs (Past 12 Hours) Vital Signs Temp Pulse Resp BP Pulse Ox O2 Del Method O2 Flow Rate 06/19/22 16:27 Nasal Cannula 2 06/19/22 14:46 36.8 C 72 20 93/53 L 91 Nasal Cannula 2 06/19/22 08:38 2 06/19/22 07:43 37.1 C 61 18 116/61 95 Nasal Cannula 2 06/19/22 06:04 54 L 90/54 L
--- NOTE | 2022-06-19 18:56 | Billing Data ---
Date of Service June 19, 2022 Coding Level of Care Code 18030 SUB INP/OBS CARE MIN
[2022-06-19] MEDS ORDERED: ALBUMIN 25% 12.5 GM/50 ML VIAL IV ONE ×2 (20:43→22:44)
[2022-06-19] MEDS: LANTUS PER UNIT CHARGE SQ SCH (21:14)
[2022-06-19] MEDS ORDERED: MoRPHine SULFATE 2 MG/ML CARP IV STA (22:44)
[2022-06-20] MEDS: ZOLPIDEM TARTRATE 5 MG TAB PO PRN (00:18)
[2022-06-20] MEDS: MoRPHine SULFATE 4 MG/ML 1 ML CARP\\VIAL IV PRN ×4 (04:03→20:13)
[2022-06-20 07:41] LABS: Basophils # (auto) 0.02 K/uL (0-0.2); Basophils % (auto) 0.5 %; Eosinophils # (auto) 0.23 K/uL (0-0.50); Eosinophils % (auto) 5.9 %; Hematocrit (blood only) 26.6 % (42.0-52.0); Hemoglobin 9.2 g/dl (14.0-18.0); Immature Granulocytes # (auto) 0.01 K/uL (0.01-0.20); Immature Granulocytes % (auto) 0.3 %; Lymphocytes # (auto) 1.16 K/uL (1.2-3.4); Lymphocytes % (auto) 29.5 %; Mean Corpuscular Hemoglobin 32.4 pg (25.0-34.0); Mean Corpuscular Hgb Conc 34.6 g/dL (32.0-36.0); Mean Corpuscular Volume 93.7 fL (80.0-100.0); Mean Platelet Volume 12.4 fL (9.4-12.4); Monocytes # (auto) 0.48 K/uL (0.11-0.59); Monocytes % (auto) 12.2 %; Neutrophils # (auto) 2.03 K/uL (1.40-6.50); Neutrophils % (auto) 51.6 %; Platelet Count 47 K/uL (130-400); RDW Coefficient of Variation 16.8 % (11.5-14.5); RDW Standard Deviation 57.5 fL (36.4-46.3); Red Blood Count 2.84 M/uL (4.70-6.10); White Blood Count 3.93 K/ul (4.8-10.8)
[2022-06-20 08:53] LABS: Albumin Globulin Ratio 0.8 (0.9-2); Albumin Level 2.2 gm/dl (3.4-5.0); Bilirubin,Total 1.5 mg/dl (0.2-1.0); Calcium 7.7 mg/dl (8.5-10.1); Globulin 2.8 gm/dl (2.5-4.0); Potassium 3.6 mmol/L (3.5-5.1)
[2022-06-20 08:59] LABS: BUN Creatinine Ratio 15.2 (10-20); Creatinine Clr Calc Pharmacy 161.8 ml/min; Est GFR (African American) 122.7 ml/min; Est GFR (Non-African American) 105.8 ml/min
[2022-06-20] MEDS: NICOTINE 14 MG/24 HR PATCH TD SCH (09:13)
[2022-06-20] MEDS: INSULIN ASPART PER UNIT SC SCH ×4 (09:13→22:40)
[2022-06-20] MEDS: buprenorphine HCL 8 MG SUBL SL SCH ×3 (09:14→20:13)
[2022-06-20] MEDS: PROPRANOLOL HCL 10 MG TAB PO SCH ×2 (09:15→20:07)
[2022-06-20] MEDS: PANTOprazole 40 MG TAB PO SCH ×2 (09:15→20:06)
[2022-06-20] MEDS: rifAXIMin 550 MG TABLET PO SCH ×3 (09:16→20:13)
[2022-06-20] MEDS: SPIRONOLACTONE 100 MG TAB PO SCH (09:17)
[2022-06-20] MEDS: ALFUZOSIN HCL 10 MG TAB PO SCH (09:17)
[2022-06-20] MEDS: FOLIC ACID 1 MG TAB PO SCH (09:17)
[2022-06-20] MEDS: ASPIRIN 81 MG ECTAB PO SCH (09:17)
[2022-06-20] MEDS: THIAMINE HCL 100 MG TAB PO SCH (09:17)
[2022-06-20] MEDS: FUROSEMIDE 40 MG/4 ML VIAL IV SCH (09:20)
[2022-06-20] MEDS: LACTULOSE SYRUP 20 GM/30 ML UDC PO SCH ×3 (09:21→20:07)
[2022-06-20] MEDS: GABAPENTIN 250 MG/5 ML 470 ML BTL PO SCH ×3 (09:21→20:13)
--- NOTE | 2022-06-20 17:54 | Hospitalist Progress Note ---
Date of Service June 20, 2022 Assessment & Plan (1) Abdominal ascites: Plan: This is a 61-year-old male with a history of chronic hepatitis C, cirrhosis, alcohol abuse, IV drug use, OUD on Suboxone, AAA, GERD, type 2 diabetes (A1c 9.8% in 1022), COPD w/ chronic O2 requirement of 2 L, ELINA, hypertension who reported to [facility] for evaluation of shortness of breath, progressive abdominal distention, scrotal discomfort, and significant (+22kg) weight gain -- consistent with interval development of abdominoscrotal ascites otherwise without e/o acute liver failure. Abdominoscrotal Ascites * Significant abdominal distention with +TTP and extension into the scrotum -- weight 110 on 06/07, on admission at 132 kg (+22kg weight gain) * Suspect secondary to progressing cirrhotic burden as well as dietary indiscretion (multiple cans of soup a day, endorses using salt shaker with most things) * Paracentesis completed 06/14 and 06/16 -- total of 8L removed, transudative ascitic fluid on analysis; no e/o SBP (empiric CFTX d/c) -- Another 4.4 L of fluid taken off today. * Continue with morphine 4mg IV q3h prn for pain control; goal to transition to po analgesics * Gastroenterology following, recommendations appreciated: -- Started spironolactone 100 mg, Lasix 40 mg IV daily--> creatinine has been normal and stable since admission. -- Facilitating hepatology referral more locally due to insurance issues with [facility] * Patient is still with a profound degree of ascites despite removal of 12.4L total -- ? plan for serial paracenteses after leaving the hospital; appreciate GI input on how to best do this (2) Cirrhosis: Plan: Cirrhosis * Likely multifactorial etiology -- alcohol-related (currently in remission), chronic HCV (untreated) * Currently follows with [facility] - getting established w/ [facility] Hepatology for further care, ?possible transplant * MELD score 17 on admission * Last EGD in 2020 -- no acute concerns * Continue maintenance medications: propranolol, Aldactone, furosemide, lactulose, rifaximin * LFTs with evidence of mild hepatitis -- likely resolving from last visit -- but thankfully no e/o acute decompensation or encephalopathy * Chronic steroid use for elevated MDF and good response to methylpred during last visit deferred given untreated HCV * Hepatotoxic meds to be avoided, continue opioids for pain control and avoid NSAIDs. May use low-dose Tylenol but will try to avoid given patient's liver history. (3) Venous stasis dermatitis: Plan: Venous Stasis Dermatitis * Suspect lower extremity skin changes are more likely dermatitis with known chronic edema and worsening anasarca * Compression stockings, elevate legs, mobile exercises while here * Continue diuresis therapy for cirrhosis (4) Alcohol abuse, in remission: Plan: EtOH Abuse * In remission - has not drank since prior to last admission * Continue thiamine and folate * As above, see cirrhosis (5) Type 2 diabetes mellitus: Plan: T2DM * A1c 9.8% in February 2022 * SSI, Lantus 50U qHS (normally 80), CC diet (6) Hepatitis C: Plan: Chronic Hepatitis C * Untreated. Reportedly set-up to see [facility] for treatment * Engage nurse navigator prior to discharge to ensure adequate follow-up for treatment (7) Thrombocytopenia: Plan: Thrombocytopenia * Secondary to cirrhosis. Chronic. Stable. (8) GERD (gastroesophageal reflux disease): Plan: GERD * PPI (9) Acute hepatitis: Plan: Hepatitis / Elevated LFTs * Likely multifactorial - resolving prior episode of alcoholic hepatitis -- numbers are best they've been in a while * Improved since arrival. No present concern of acute liver failure or worsening hepatitis (10) Anxiety: Plan: Anxiety * Patient with episode of increased anxiety / "panic" today * Responded well to 1mg Ativan IV * Continue to monitor * Patient notes hx of anxiety and is trying to get established with outpatient psychiatry * He is not on any medication for anxiety at baseline Plan Code: Full Diet: CC, low Na with fluid restriction PPX: SCDs Dispo: MST. PT/OT evaluations completed and recommending d/c to SNF, placement pending Admission and Anticipated Discharge Date Admission Date: June 12, 2022 Supervising Physician Co-Signing Physician Notes I personally examined the patient and verified all pichardo points of history and exam, discussed case, and agree with decision making with Dr Shikha varghese, waiting on rehab. no new issues identified Vitals noted, in general he is awake and alert pleasant no distress. HEENT nor mocephalic atraumatic mucous membranes moist. Breathing unlabored no accessory muscle use good effort. Skin shows no rashes no pallor or icterus. Neuro without focal deficits. Scrotum markedly swollen. Ascites/scrotal edemadue to cirrhosis with portal hypertension. total ~8L removed over 2 paracenteses this stay. elevate scrotum. continue diuresis//follow creatinine - reassurring today. educated on sodium 06/19. follow closely. PT/OT eval and treat. for rehab once bed available. otherwise as above Subjective Patient seen at bedside this morning. No acute events reported overnight. Per nursing, they are concerned that he is overutilizing his pain control medication, however, he is spreading out to every 3 hours due to abdominal and scrotal pain. Is open to try other modalities, however, his choices are limited. Otherwise overall doing well. No other complaints this time. Review of Systems Review of Systems: Per HPI Physical Exam Physical Exam: GENERAL: No acute distress. Well developed and well nourished. Vital signs reviewed as above. EYES: PERRLA. EOMI. Anicteric sclerae. HENT: Moist mucous membranes. RESPIRATORY: Good respiratory effort with nonlabored respirations. Clear to auscultation bilaterally. No wheezing, rales, or rhonchi. CARDIOVASCULAR: Regular rate and rhythm. No murmurs. No JVD. ABDOMEN: Much improved abdominal a ascites but still significant scrotal swelling. + hepatomegaly. + diffuse abd TTP most prominent over RUQ. + bowel sounds. EXTREMITIES: + BLE edema w/ chronic venous stasis changes. SKIN: Warm, dry. NEUROLOGIC: A/O x3. Normal speech. No focal neurological deficits. PSYCHIATRIC: Cooperative. Normal mood and affect. Results & Data Results & Data ([facility]) Vital Signs (Past 12 Hours) Vital Signs Temp Pulse Pulse BP Pulse Ox O2 Del Method O2 Flow Rate 06/20/22 14:00 67 06/20/22 08:45 Nasal Cannula 2 06/20/22 11:32 36.8 C 77 101/62 94 Room Air 06/20/22 07:47 37 C 64 107/61 89 L Room Air 06/20/22 07:23 62
--- NOTE | 2022-06-20 18:37 | Billing Data ---
Date of Service June 20, 2022 Coding Level of Care Code 73422 SUB INP/OBS CARE
[2022-06-20] MEDS: LANTUS PER UNIT CHARGE SQ SCH (22:40)
[2022-06-21] MEDS ORDERED: oxyCODONE HCL IR 5 MG TAB (IMMEDIATE RELEASE) PO PRN (07:44)
[2022-06-21] MEDS: SPIRONOLACTONE 100 MG TAB PO SCH (07:56)
[2022-06-21] MEDS: ALFUZOSIN HCL 10 MG TAB PO SCH (07:56)
[2022-06-21] MEDS: FOLIC ACID 1 MG TAB PO SCH (07:56)
[2022-06-21] MEDS: THIAMINE HCL 100 MG TAB PO SCH (07:56)
[2022-06-21] MEDS: ASPIRIN 81 MG ECTAB PO SCH (07:56)
[2022-06-21] MEDS: PROPRANOLOL HCL 10 MG TAB PO SCH ×2 (07:57→20:37)
[2022-06-21] MEDS: PANTOprazole 40 MG TAB PO SCH ×2 (07:57→20:37)
[2022-06-21] MEDS: oxyCODONE HCL IR 5 MG TAB (IMMEDIATE RELEASE) PO PRN ×2 (07:58→12:44)
[2022-06-21] MEDS: LACTULOSE SYRUP 20 GM/30 ML UDC PO SCH ×4 (08:00→20:37)
[2022-06-21] MEDS: FUROSEMIDE 40 MG/4 ML VIAL IV SCH (08:00)
[2022-06-21] MEDS: NICOTINE 14 MG/24 HR PATCH TD SCH (08:00)
[2022-06-21] MEDS: INSULIN ASPART PER UNIT SC SCH ×4 (08:11→20:42)
[2022-06-21] MEDS: buprenorphine HCL 8 MG SUBL SL SCH ×3 (08:11→20:41)
[2022-06-21] MEDS: GABAPENTIN 250 MG/5 ML 470 ML BTL PO SCH ×3 (08:13→20:41)
[2022-06-21 08:50] LABS: Basophils # (auto) 0.02 K/uL (0-0.2); Basophils % (auto) 0.5 %; Eosinophils # (auto) 0.19 K/uL (0-0.50); Eosinophils % (auto) 5.1 %; Hematocrit (blood only) 28.4 % (42.0-52.0); Hemoglobin 9.7 g/dl (14.0-18.0); Immature Granulocytes # (auto) 0.01 K/uL (0.01-0.20); Immature Granulocytes % (auto) 0.3 %; Lymphocytes % (auto) 34.7 %; Mean Corpuscular Hemoglobin 32.6 pg (25.0-34.0); Mean Corpuscular Hgb Conc 34.2 g/dL (32.0-36.0); Mean Corpuscular Volume 95.3 fL (80.0-100.0); Mean Platelet Volume 12.1 fL (9.4-12.4); Monocytes # (auto) 0.42 K/uL (0.11-0.59); Monocytes % (auto) 11.2 %; Neutrophils # (auto) 1.81 K/uL (1.40-6.50); Neutrophils % (auto) 48.2 %; Platelet Count 49 K/uL (130-400); RDW Coefficient of Variation 16.9 % (11.5-14.5); RDW Standard Deviation 59.3 fL (36.4-46.3); Red Blood Count 2.98 M/uL (4.70-6.10); White Blood Count 3.75 K/ul (4.8-10.8)
[2022-06-21 09:44] LABS: Albumin Globulin Ratio 0.8 (0.9-2); Albumin Level 2.3 gm/dl (3.4-5.0); BUN Creatinine Ratio 13.7 (10-20); Bilirubin,Total 1.9 mg/dl (0.2-1.0); Calcium 8.1 mg/dl (8.5-10.1); Creatinine Clr Calc Pharmacy 140.8 ml/min; Est GFR (African American) 117.7 ml/min; Est GFR (Non-African American) 101.5 ml/min; Globulin 2.9 gm/dl (2.5-4.0); Potassium 3.7 mmol/L (3.5-5.1); Total Protein 5.2 gm/dl (6.0-8.3)
--- NOTE | 2022-06-21 13:52 | Hospitalist Progress Note ---
Date of Service June 21, 2022 Assessment & Plan (1) Abdominal ascites: Plan: This is a 61-year-old male with a history of chronic hepatitis C, cirrhosis, alcohol abuse, IV drug use, OUD on Suboxone, AAA, GERD, type 2 diabetes (A1c 9.8% in 1022), COPD w/ chronic O2 requirement of 2 L, ELINA, hypertension who reported to [facility] for evaluation of shortness of breath, progressive abdominal distention, scrotal discomfort, and significant (+22kg) weight gain -- consistent with interval development of abdominoscrotal ascites otherwise without e/o acute liver failure. Abdominoscrotal Ascites * Significant abdominal distention with +TTP and extension into the scrotum -- weight 110 on 06/07, on admission at 132 kg (+22kg weight gain) * Suspect secondary to progressing cirrhotic burden as well as dietary indiscretion (multiple cans of soup a day, endorses using salt shaker with most things) * Since admission, over 12 L of abdominal fluid have been drawn off. * Attempted transition from morphine to oral oxycodone. Patient reports 0 relief from oxycodone, will attempt doubling the dose if this does not work we will go to sublingual morphine. * Gastroenterology following, recommendations appreciated: -- Started spironolactone 100 mg, Lasix 40 mg IV daily--> creatinine has been normal and stable since admission. -- Facilitating hepatology referral more locally due to insurance issues with [facility] * Patient is still with a profound degree of ascites despite removal of 12.4L total -- ? plan for serial paracenteses after leaving the hospital; appreciate GI input on how to best do this (2) Cirrhosis: Plan: Cirrhosis * Likely multifactorial etiology -- alcohol-related (currently in remission), chronic HCV (untreated) * Currently follows with [facility] - getting established w/ [facility] Hepatology for further care, ?possible transplant * MELD score 17 on admission * Last EGD in 2020 -- no acute concerns * Continue maintenance medications: propranolol, Aldactone, furosemide, lactulose, rifaximin * LFTs with evidence of mild hepatitis -- likely resolving from last visit -- but thankfully no e/o acute decompensation or encephalopathy * Chronic steroid use for elevated MDF and good response to methylpred during last visit deferred given untreated HCV * Hepatotoxic meds to be avoided, continue opioids for pain control and avoid NSAIDs. May use low-dose Tylenol but will try to avoid given patient's liver history. (3) Venous stasis dermatitis: Plan: Venous Stasis Dermatitis * Suspect lower extremity skin changes are more likely dermatitis with known chronic edema and worsening anasarca * Compression stockings, elevate legs, mobile exercises while here * Continue diuresis therapy for cirrhosis (4) Alcohol abuse, in remission: Plan: EtOH Abuse * In remission - has not drank since prior to last admission * Continue thiamine and folate * As above, see cirrhosis (5) Type 2 diabetes mellitus: Plan: T2DM * A1c 9.8% in February 2022 * SSI, Lantus 50U qHS (normally 80), CC diet (6) Hepatitis C: Plan: Chronic Hepatitis C * Untreated. Reportedly set-up to see [facility] for treatment * Engage nurse navigator prior to discharge to ensure adequate follow-up for t reatment (7) Thrombocytopenia: Plan: Thrombocytopenia * Secondary to cirrhosis. Chronic. Stable. (8) GERD (gastroesophageal reflux disease): Plan: GERD * PPI (9) Acute hepatitis: Plan: Hepatitis / Elevated LFTs * Likely multifactorial - resolving prior episode of alcoholic hepatitis -- numbers are best they've been in a while * Improved since arrival. No present concern of acute liver failure or worsening hepatitis (10) Anxiety: Plan: Anxiety * Patient with episode of increased anxiety / "panic" today * Responded well to 1mg Ativan IV * Continue to monitor * Patient notes hx of anxiety and is trying to get established with outpatient psychiatry * He is not on any medication for anxiety at baseline Plan Code: Full Diet: CC, low Na with fluid restriction PPX: SCDs Dispo: MST. PT/OT evaluations completed and recommending d/c to SNF, placement pending Admission and Anticipated Discharge Date Admission Date: June 12, 2022 Supervising Physician Co-Signing Physician Notes I personally examined the patient and verified all pichardo points of history and exam, discussed case, and agree with decision making with Dr Trivedi Pain fairly poorly controlled some switch to oral oxycodone. Has had 2 doses of 10 mg. Notes that he is still leaking off and on from paracentesis site. Vitals noted, in general he is awake and alert pleasant no distress. HEENT normocephalic atraumatic mucous membranes moist. Breathing unlabored no accessory muscle use good effort. Skin shows no rashes no pallor or icterus. Neuro without focal deficits. Scrotum markedly swollen but less than before. Abdomen with a somewhat wet dressing over his paracentesis puncture wound, no surrounding erythema no exudate.. Ascites/scrotal edemadue to cirrhosis with portal hypertension. total ~8L removed over 2 paracenteses this stay. For now we will hold off on any direct intervention on paracentesis site leaking, as a little bit further fluid removal could actually be beneficial. Certainly can try Dermabond or suture if needed. Elevate scrotum. continue diuresis//follow creatinine -continues to be reassuring. educated on sodium 06/19. follow closely. PT/OT eval and treat. for rehab once bed available. Uncontrolled painwas doing well on 4 mg of morphine, now not doing well on 10 mg of oxycodoneI do wonder about absorption issues given that the relative potency is stronger. We will give trial to sublingual morphine to test that therapy. Also possible that the buprenorphine is blocking oxycodone more than morphine, but this seems less plausible to me given that he was giving a good response to the morphine. Obviously high risk management given narcotic pain medicines otherwise as above Subjective Patient seen at bedside this morning. No acute vents reported overnight. Patient reports continued pain and is requesting to have his morphine. Explained to him we are trying to convert him to something outpatient so we will be switching him to oxycodone over morphine. Patient is agreeable to this. Otherwise hungry and having good appetite and requesting breakfast. No other complaints at this time. Awaiting SNF placement. Review of Systems Review of Systems: Per HPI Physical Exam Constitutional: WD/WN, vitals as above Eyes: + anicteric sclerae Neck: normal visual inspection Respiratory: normal respiratory effort Cardiovascular: Rate/Rhythm: regular rate and regular rhythm Extremities: + edema Gastrointestinal (Abdomen): Inspection/Auscultation: + abdomen distended (improved) and normal bowel sounds Percussion/Palpation: + abdomen tender and abdomen soft Musculoskeletal: Head/Neck/Chest: normocephalic and head atraumatic Skin: no rashes, warm and dry Neurologic: moves all extremities Psychiatric: Orientation: alert and oriented x 3 Genitourinary: + scrotal swelling Results & Data Results & Data ([facility]) Vital Signs (Past 12 Hours) Vital Signs Temp Pulse Pulse Resp BP Pulse Ox O2 Del Method 06/21/22 11:04 36.8 C 67 16 91/50 L 95 Nasal Cannula 06/21/22 11:45 Nasal Cannula 06/21/22 07:25 61 06/21/22 06:27 37.0 C 67 20 98/61 L 95 Nasal Cannula 06/21/22 02:12 36.9 C 65 20 102/64 94 Nasal Cannula O2 Flow Rate 06/21/22 11:04 2 06/21/22 11:45 2 06/21/22 07:25 06/21/22 06:27 2 06/21/22 02:12 2
[2022-06-21] MEDS ORDERED: MoRPHine SULFATE 10 MG/0.5 ML UDP PO ONE (16:25)
--- NOTE | 2022-06-21 18:32 | Billing Data ---
Date of Service June 21, 2022 Coding Level of Care Code 22581 SUB INP/OBS CARE MIN
[2022-06-21] MEDS: rifAXIMin 550 MG TABLET PO SCH (20:37)
[2022-06-21] MEDS: LANTUS PER UNIT CHARGE SQ SCH (20:42)
[2022-06-21] MEDS: MoRPHine SULFATE 10 MG/0.5 ML UDP PO PRN (20:42)
[2022-06-21] MEDS: ZOLPIDEM TARTRATE 5 MG TAB PO PRN (23:55)
[2022-06-22] MEDS: MoRPHine SULFATE 10 MG/0.5 ML UDP PO PRN ×5 (01:53→22:00)
[2022-06-22] MEDS: PANTOprazole 40 MG TAB PO SCH ×2 (08:15→20:34)
[2022-06-22] MEDS: LACTULOSE SYRUP 20 GM/30 ML UDC PO SCH ×3 (08:15→20:32)
[2022-06-22] MEDS: PROPRANOLOL HCL 10 MG TAB PO SCH ×2 (08:15→20:34)
[2022-06-22] MEDS: NICOTINE 14 MG/24 HR PATCH TD SCH (08:16)
[2022-06-22] MEDS: ASPIRIN 81 MG ECTAB PO SCH (08:16)
[2022-06-22] MEDS: SPIRONOLACTONE 100 MG TAB PO SCH (08:17)
[2022-06-22] MEDS: ALFUZOSIN HCL 10 MG TAB PO SCH (08:17)
[2022-06-22] MEDS: FUROSEMIDE 40 MG/4 ML VIAL IV SCH (08:17)
[2022-06-22] MEDS: rifAXIMin 550 MG TABLET PO SCH ×2 (08:17→20:33)
[2022-06-22] MEDS: GABAPENTIN 250 MG/5 ML 470 ML BTL PO SCH ×3 (08:18→20:49)
[2022-06-22] MEDS: FOLIC ACID 1 MG TAB PO SCH (08:18)
[2022-06-22] MEDS: THIAMINE HCL 100 MG TAB PO SCH (08:19)
[2022-06-22 08:22] LABS: Albumin Globulin Ratio 0.8 (0.9-2); Albumin Level 2.3 gm/dl (3.4-5.0); BUN Creatinine Ratio 14.7 (10-20); Bilirubin,Total 1.4 mg/dl (0.2-1.0); Calcium 7.8 mg/dl (8.5-10.1); Creatinine Clr Calc Pharmacy 151.8 ml/min; Est GFR (African American) 121.2 ml/min; Est GFR (Non-African American) 104.5 ml/min; Globulin 2.9 gm/dl (2.5-4.0); Magnesium 1.3 mg/dl (1.7-2.4); Potassium 3.5 mmol/L (3.5-5.1); Total Protein 5.2 gm/dl (6.0-8.3)
[2022-06-22] MEDS: INSULIN ASPART PER UNIT SC SCH ×4 (08:33→20:37)
[2022-06-22] MEDS: buprenorphine HCL 8 MG SUBL SL SCH ×3 (08:34→20:46)
[2022-06-22] MEDS: MAGNESIUM SULFATE / D5W 1 GM/100 ML BAG IV SCH ×4 (09:59→17:19)
--- NOTE | 2022-06-22 16:46 | Hospitalist Progress Note ---
Date of Service June 22, 2022 Assessment & Plan (1) Abdominal ascites: Plan: This is a 61-year-old male with a history of chronic hepatitis C, cirrhosis, alcohol abuse, IV drug use, OUD on Suboxone, AAA, GERD, type 2 diabetes (A1c 9.8% in 1022), COPD w/ chronic O2 requirement of 2 L, ELINA, hypertension who reported to [facility] for evaluation of shortness of breath, progressive abdominal distention, scrotal discomfort, and significant (+22kg) weight gain -- consistent with interval development of abdominoscrotal ascites otherwise without e/o acute liver failure. Abdominoscrotal Ascites * Significant abdominal distention with +TTP and extension into the scrotum -- weight 110 on 06/07, on admission at 132 kg (+22kg weight gain) * Suspect secondary to progressing cirrhotic burden as well as dietary indiscretion (multiple cans of soup a day, endorses using salt shaker with most things) * Since admission, over 12 L of abdominal fluid have been drawn off. * Continue sublingual morphine as he is achieving good pain control at this and this can be used outpatient. * Gastroenterology following, recommendations appreciated: -- Started spironolactone 100 mg, switched IV Lasix to oral Bumex BID given better bioavailability than oral Lasix. Continue to monitor renal function. -- Facilitating hepatology referral more locally due to insurance issues with [facility] * Patient is still with a profound degree of ascites despite removal of 12.4L total -- ? plan for serial paracenteses after leaving the hospital; appreciate GI input on how to best do this (2) Cirrhosis: Plan: Cirrhosis * Likely multifactorial etiology -- alcohol-related (currently in remission), chronic HCV (untreated) * Currently follows with [facility] - getting established w/ [facility] Hepatology for further care, ?possible transplant * MELD score 17 on admission * Last EGD in 2020 -- no acute concerns * Continue maintenance medications: propranolol, Aldactone, furosemide, lactulose, rifaximin * LFTs with evidence of mild hepatitis -- likely resolving from last visit -- but thankfully no e/o acute decompensation or encephalopathy * Chronic steroid use for elevated MDF and good response to methylpred during last visit deferred given untreated HCV * Hepatotoxic meds to be avoided, continue opioids for pain control and avoid NSAIDs. May use low-dose Tylenol but will try to avoid given patient's liver history. (3) Venous stasis dermatitis: Plan: Venous Stasis Dermatitis * Suspect lower extremity skin changes are more likely dermatitis with known chronic edema and worsening anasarca * Compression stockings, elevate legs, mobile exercises while here * Continue diuresis therapy for cirrhosis (4) Alcohol abuse, in remission: Plan: EtOH Abuse * In remission - has not drank since prior to last admission * Continue thiamine and folate * As above, see cirrhosis (5) Type 2 diabetes mellitus: Plan: T2DM * A1c 9.8% in February 2022 * SSI, Lantus 50U qHS (normally 80), CC diet (6) Hepatitis C: Plan: Chronic Hepatitis C * Untreated. Reportedly set-up to see [facility] for treatment * Engage nurse navigator prior to discharge to ensure adequate follow-up for treatment (7) Thrombocytopenia: Plan: Thrombocytopenia * Secondary to cirrhosis. Chronic. Stable. (8) GERD (gastroesophageal reflux disease): Plan: GERD * PPI (9) Acute hepatitis: Plan: Hepatitis / Elevated LFTs * Likely multifactorial - resolving prior episode of alcoholic hepatitis -- numbers are best they've been in a while * Improved since arrival. No present concern of acute liver failure or worsening hepatitis (10) Anxiety: Plan: Anxiety * Patient with episode of increased anxiety / "panic" today * Responded well to 1mg Ativan IV * Continue to monitor * Patient notes hx of anxiety and is trying to get established with outpatient psychiatry * He is not on any medication for anxiety at baseline Plan Code: Full Diet: CC, low Na with fluid restriction PPX: SCDs Dispo: MST. PT/OT evaluations completed and recommending d/c to SNF, placement pending. No word from [facility] as of yet which would likely be his only means of going to a SNF facility while being on Subutex. If this falls through, we will have to coordinate to get him sent home with home PT and a sure there is a good care plan for him. We will recheck tomorrow. Admission and Anticipated Discharge Date Admission Date: June 12, 2022 Supervising Physician Co-Signing Physician Notes I personally examined the patient and verified all pichardo points of history and exam, discussed case, and agree with decision making with Dr Trivedi Pain tolerable with p.o. sublingual liquid morphine. Still working on placement/rehab options. Vitals noted, in general he is awake and alert pleasant no distress. HEENT normocephalic atraumatic mucous membranes moist. Breathing unlabored no accessory muscle use good effort. Skin shows no rashes no pallor or icterus. Neuro without focal deficits. Basic metabolic panel reviewed, liver enzymes reviewedbilirubin reassuring and now 1.4. Mag 1.3. Ascites/scrotal edemadue to cirrhosis with portal hypertension. total ~8L removed over 2 paracenteses this stay. For now we will hold off on any direct intervention on paracentesis site leaking, as a little bit further fluid removal could actually be beneficial. Certainly can try Dermabond or suture if needed. Elevate scrotum. continue diuresis//follow creatinine -continues to be reassuring in that respect we will increase his Lasix to see if we can help offload some of his portal hypertension/ascitesalthough this is of course a high risk management given intravenous diuretics and the need for close monitoring.. educated on sodium 06/19. follow closely. PT/OT eval and treat. for rehab once bed available. Given concern on gut edema, at discharge if he is to be maintained on a loop diuretic, will likely need to use Bumex Uncontrolled paindoing better on sublingual morphine. I suspect he was simply not absorbing p.o. oxycodone well due to gut edema. otherwise as above Subjective Patient seen at bedside this morning. No acute events reported overnight. Patient reports good pain control with sublingual morphine. Otherwise continues to complain of leaking of ascites fluid from paracentesis site left side of the abdomen. Patient would also like to get a shower today. No other new complaints currently. Awaiting placement. Review of Systems Review of Systems: All systems reviewed & are unremarkable except as noted in HPI & below Physical Exam Constitutional: WD/WN, vitals as above Eyes: + anicteric sclerae Neck: normal visual inspection Respiratory: normal respiratory effort Cardiovascular: Rate/Rhythm: regular rate and regular rhythm Extremities: + edema Gastrointestinal (Abdomen): Inspection/Auscultation: + abdomen distended (improved) and normal bowel sounds Percussion/Palpation: + abdomen tender and abdomen soft Abdomen leaking clear ascitic fluid from previous paracentesis site on left lateral abdomen. Musculoskeletal: Head/Neck/Chest: normocephalic and head atraumatic Skin: no rashes, warm and dry Neurologic: moves all extremities Psychiatric: Orientation: alert and oriented x 3 Genitourinary: + scrotal swelling Results & Data Results & Data ([facility]) Vital Signs (Past 12 Hours) Vital Signs Temp Pulse Pulse Resp BP Pulse Ox O2 Del Method 06/22/22 16:16 71 06/22/22 15:01 36.9 C 74 18 103/58 L 92 Room Air 06/22/22 12:03 37.2 C 70 14 107/65 94 Nasal Cannula 06/22/22 07:40 37.2 C 67 14 103/61 93 Nasal Cannula 06/22/22 07:23 70 06/22/22 04:48 37.2 C 65 18 120/68 95 Nasal Cannula O2 Flow Rate 06/22/22 16:16 06/22/22 15:01 06/22/22 12:03 2 06/22/22 07:40 2 06/22/22 07:23 06/22/22 04:48 2
--- NOTE | 2022-06-22 18:38 | Billing Data ---
Date of Service June 22, 2022 Coding Level of Care Code 07781 SUB INP/OBS CARE MIN
[2022-06-22] MEDS: BUMETANIDE 1 MG TAB PO SCH (20:35)
[2022-06-22] MEDS: LANTUS PER UNIT CHARGE SQ SCH (20:37)
[2022-06-22] MEDS ORDERED: FUROSEMIDE 40 MG/4 ML VIAL IV SCH (21:00)
[2022-06-22] MEDS: ZOLPIDEM TARTRATE 5 MG TAB PO PRN (22:00)
[2022-06-23] MEDS: MoRPHine SULFATE 10 MG/0.5 ML UDP PO PRN ×5 (03:12→22:50)
--- NOTE | 2022-06-23 07:01 | Hospitalist Progress Note ---
Date of Service June 23, 2022 Assessment & Plan (1) Abdominal ascites: Plan: This is a 61-year-old male with a history of chronic hepatitis C, cirrhosis, alcohol abuse, IV drug use, OUD on Suboxone, AAA, GERD, type 2 diabetes (A1c 9.8% in 1022), COPD w/ chronic O2 requirement of 2 L, ELINA, hypertension who reported to [facility] for evaluation of shortness of breath, progressive abdominal distention, scrotal discomfort, and significant (+22kg) weight gain -- consistent with interval development of abdominoscrotal ascites otherwise without e/o acute liver failure. Abdominoscrotal Ascites * Significant abdominal distention with +TTP and extension into the scrotum -- weight 110 on 06/07, on admission at 132 kg (+22kg weight gain) * Suspect secondary to progressing cirrhotic burden as well as dietary indiscretion (multiple cans of soup a day, endorses using salt shaker with most things) * Since admission, over 12 L of abdominal fluid have been drawn off. * Continue sublingual morphine as he is achieving good pain control at this and this can be used outpatient. * Gastroenterology following, recommendations appreciated: -- Started spironolactone 100 mg, switched IV Lasix to oral Bumex 1mg BID on 06/22 given better bioavailability than oral Lasix. Continue to monitor renal function. Consider increasing Bumex as tolerated. -- Facilitating hepatology referral more locally due to insurance issues with [facility] * Patient is still with a profound degree of ascites despite removal of 12.4L total -- ? plan for serial paracenteses after leaving the hospital; appreciate GI input on how to best do this (2) Cirrhosis: Plan: Cirrhosis * Likely multifactorial etiology -- alcohol-related (currently in remission), chronic HCV (untreated) * Currently follows with [facility] - getting established w/ [facility] Hepatology for further care, ?possible transplant * MELD score 17 on admission * Last EGD in 2020 -- no acute concerns * Continue maintenance medications: propranolol, Aldactone, furosemide, lactulose, rifaximin * LFTs with evidence of mild hepatitis -- likely resolving from last visit -- but thankfully no e/o acute decompensation or encephalopathy * Chronic steroid use for elevated MDF and good response to methylpred during last visit deferred given untreated HCV * Hepatotoxic meds to be avoided, continue opioids for pain control and avoid NSAIDs. May use low-dose Tylenol but will try to avoid given patient's liver history. (3) Venous stasis dermatitis: Plan: Venous Stasis Dermatitis * Suspect lower extremity skin changes are more likely dermatitis with known chronic edema and worsening anasarca * Compression stockings, elevate legs, mobile exercises while here * Continue diuresis therapy for cirrhosis (4) Alcohol abuse, in remission: Plan: EtOH Abuse * In remission - has not drank since prior to last admission * Continue thiamine and folate * As above, see cirrhosis (5) Type 2 diabetes mellitus: Plan: T2DM * A1c 9.8% in February 2022 * SSI, Lantus 50U qHS (normally 80), CC diet (6) Hepatitis C: Plan: Chronic Hepatitis C * Untreated. Reportedly set-up to see [facility] for treatment * Engage nurse navigator prior to discharge to ensure adequate follow-up for treatment (7) Thrombocytopenia: Plan: Thrombocytopenia * Secondary to cirrhosis. Chronic. Stable. (8) GERD (gastroesophageal reflux disease): Plan: GERD * PPI (9) Acute hepatitis: Plan: Hepatitis / Elevated LFTs * Likely multifactorial - resolving prior episode of alcoholic hepatitis -- numbers are best they've been in a while * Improved since arrival. No present concern of acute liver failure or worsening hepatitis (10) Anxiety: Plan: Anxiety * Patient with episode of increased anxiety / "panic" today * Responded well to 1mg Ativan IV * Continue to monitor * Patient notes hx of anxiety and is trying to get established with outpatient psychiatry * He is not on any medication for anxiety at baseline Plan Code: Full Diet: CC, low Na with fluid restriction PPX: SCDs Dispo: MST. PT/OT evaluations completed and recommending d/c to SNF, placement pending. No word from [facility] as of yet which would likely be his only means of going to a SNF facility while being on Subutex. If this falls through, we will have to coordinate to get him sent home with home PT and a sure there is a good care plan for him. Admission and Anticipated Discharge Date Admission Date: June 12, 2022 Supervising Physician Co-Signing Physician Notes I personally examined the patient and verified all pichardo points of history and exam, discussed case, and agree with decision making with Dr Trivedi doing OK feels up to going home extensive discussions with pt/sister (on the phone) about dc planning Vitals noted, in general he is awake and alert pleasant no distress. HEENT normocephalic atraumatic mucous membranes moist. Breathing unlabored no accessory muscle use good effort. Skin shows no rashes no pallor or icterus. Neuro without focal deficits. labs reviewed. Ascites/scrotal edemadue to cirrhosis with portal hypertension. total ~8L removed over 2 paracenteses this stay. For now we will hold off on any direct intervention on paracentesis site leaking, as a little bit further fluid removal could actually be beneficial. changed to PO diuretics. explained risks/benefits and need for close outpt monitoring. Reiterated low-sodium diet. Discussed pain control. Uncontrolled paindoing better on sublingual morphine. I suspect he was simply not absorbing p.o. oxycodone well due to gut edema. He notes that his pain is really predominantly from his ascitic distended abdomen and his swollen scrotumwe discussed that as these improve his need for the morphine should reduceand so while I am not opposed to discharge on a tapering course of sublingual morphine, it should not be viewed as a permanent fixture. otherwise as above Subjective Patient reports Morphine SL does help with his abdominal/scrotal pain but he does need it often. Denies other complaints. Awaiting placement. Review of Systems Review of Systems: All systems reviewed & are unremarkable except as noted in HPI & below Physical Exam Physical Exam: General: A&Ox3. NAD. Cooperative. HEENT: Atraumatic, normocephalic. Pulm: Diminished bibasilar aeration. -wheezes, -rales, -rhonchi. Symmetrical chest rise. No increase work of breathing. No respiratory distress. Cardiac: RRR, -mrg. Radial pulses intact and symmetrical. Abdominal: soft, +distension, mild tenderness without guarding/rebound, BS x 4 : +scrotal swelling Results & Data Results & Data ([facility]) Vital Signs (Past 12 Hours) Vital Signs Temp Pulse Pulse Resp BP Pulse Ox O2 Del Method 06/23/22 02:47 36.6 C 69 18 102/58 L 95 Room Air 06/23/22 01:44 69 06/22/22 22:11 36.4 C L 65 20 109/64 97 Room Air 06/22/22 19:36 37.1 C 70 18 116/68 98 Room Air Resident Activity Tracking Resident Involvement: Resident Care Provided Care Provided: Adult Hospital Medicine
[2022-06-23 07:24] LABS: Albumin Globulin Ratio 0.8 (0.9-2); Albumin Level 2.2 gm/dl (3.4-5.0); BUN Creatinine Ratio 13.9 (10-20); Bilirubin,Total 1.3 mg/dl (0.2-1.0); Calcium 7.7 mg/dl (8.5-10.1); Creatinine Clr Calc Pharmacy 130.7 ml/min; Est GFR (African American) 113.9 ml/min; Est GFR (Non-African American) 98.3 ml/min; Globulin 2.8 gm/dl (2.5-4.0); Potassium 3.4 mmol/L (3.5-5.1)
[2022-06-23] MEDS ORDERED: POTASSIUM CHLORIDE CRTAB 20 MEQ TABCR PO STA (07:29)
[2022-06-23 08:28] LABS: INR 1.4 (0.9-1.1); Prothrombin Time 14.7 Seconds (9.0-12.0)
[2022-06-23] MEDS: BUMETANIDE 1 MG TAB PO SCH ×2 (08:31→20:49)
[2022-06-23] MEDS: THIAMINE HCL 100 MG TAB PO SCH (08:31)
[2022-06-23] MEDS: PANTOprazole 40 MG TAB PO SCH ×2 (08:31→20:50)
[2022-06-23] MEDS: ALFUZOSIN HCL 10 MG TAB PO SCH (08:31)
[2022-06-23] MEDS: ASPIRIN 81 MG ECTAB PO SCH (08:31)
[2022-06-23] MEDS: rifAXIMin 550 MG TABLET PO SCH ×2 (08:31→20:52)
[2022-06-23] MEDS: PROPRANOLOL HCL 10 MG TAB PO SCH ×2 (08:32→20:51)
[2022-06-23] MEDS: SPIRONOLACTONE 100 MG TAB PO SCH (08:32)
[2022-06-23] MEDS: FOLIC ACID 1 MG TAB PO SCH (08:32)
[2022-06-23] MEDS: LACTULOSE SYRUP 20 GM/30 ML UDC PO SCH ×3 (08:33→20:49)
[2022-06-23] MEDS: NICOTINE 14 MG/24 HR PATCH TD SCH (08:33)
[2022-06-23] MEDS: GABAPENTIN 250 MG/5 ML 470 ML BTL PO SCH ×3 (08:33→20:48)
[2022-06-23] MEDS: POTASSIUM CHLORIDE CRTAB 20 MEQ TABCR PO SCH (08:34)
[2022-06-23] MEDS: buprenorphine HCL 8 MG SUBL SL SCH ×3 (08:44→20:48)
[2022-06-23] MEDS: INSULIN ASPART PER UNIT SC SCH ×4 (08:44→20:53)
[2022-06-23 11:49] LABS: Magnesium 1.5 mg/dl (1.7-2.4)
--- NOTE | 2022-06-23 12:42 | Discharge Summary ---
Date of Service June 23, 2022 Admission HPI Per Admitting Provider This is a 61-year-old male with a history of chronic hepatitis C, cirrhosis, alcohol abuse, IV drug use, OU D on Suboxone, AAA, GERD, type 2 diabetes (A1c 9.8% in 1022), COPD w/ chronic O2 requirement of 2 L, ELINA, hypertension who reported to [facility] for evaluation of shortness of breath and difficulty breathing. He has also noticed progressive abdominal distention and abdominal pain. Patient is consistent with his last hospital admission, he has been fully compliant with all of his medications. He was taken off spironolactone due to low blood pressure concerns. He says that he has actually been feeling surprisingly well from a mentation standpoint. However, he has noticed progressive swelling of his belly and scrotum. This is gone to a point where he cannot sit comfortably and he has significant pain with palpation over his belly. He does report some subjective fevers at home. Denies any persistent chills or night sweats. He says that he feels like he cannot cough because of how big his belly is and the pain associated with it. From a dietary perspective he endorses eating 2 cans of soup a day as well as using a saltshaker frequently. He does share with me that he is in the process of getting accepted to [facility]'s liver program, and 2 of their stipulations are that he quit smoking and remain off alcohol. He has been abstinent from alcohol since prior to his last admission. Denies any recent use of recreational drugs. He does endorse cutting down on his cigarette use. Of note, patient was recently admitted to [facility] and discharged on 05/27 for acute decompensated cirrhosis and encephalopathy thought to be secondary to hepatic encephalopathy, toxic contribution (e.g., medications), chronic alcohol abuse. There was concern for possible SBP, however, team was unable to get a paracentesis during this stay, for which an empiric course of ceftriaxone was completed. He was also treated with prednisolone too for high MDF score. In the ER, patient was found to be hypertensive to 147/81 with heart rate of 106. Weight at 132 kg from 110 kg on 06/07. He is saturating at 97% on room air, but was put on nasal cannula for comfort. Admission labs demonstrate chronic leukopenia at 4, chronic anemia at 10, chronic thrombocytopenia at 70 (improved from 27 on 05/27), INR 1.2. VBG revealed mild respiratory alkalosis at 7.44. Initial lites revealing sodium 134, BUN 27/creatinine 1.27. LFTs reviewed mixed hyperbilirubinemia with T bili 2.6, direct bilirubin 1.3, AST 54/ALT 22improved from prior. Albumin 2.6. COVID, flu, and RSV negative. Chest x-ray reveals cardiomegaly with pulmonary vascular congestion, largely unchanged compared to prior. He was given morphine, Zofran, ceftriaxone, and vancomycin. --- This documentation was created utilizing dictation software. As such, syntax, grammatical, and word-choice errors may be present. Notes are screened prior to submission in an attempt to reduce these errors. If there are any questions or concerns, please contact the author directly for clarification. Admission Exam Per Admitting Provider General: 61-year old male who is alert, oriented, and appears in mild distress secondary to pain. HEENT: NCAT. - Eyes - Sclera are white, anicteric, and without injection. - Mouth - MMM - Neck - supple, unable to assess for JVD given habitus. Cardiac: Fast rate and regular rhythm; S1 and S2 present with no murmurs, rubs, or gallops. Pulmonary: Good respiratory effort with symmetric expansion of the chest. No use of accessory muscles. Lungs demonstrated coarse breath sounds throughout. Abdominal: Normoactive bowel sounds. Extensively enlarged abdomen with significant TTP and associated scattered petechiae throughout. : Extensive edema involving the scrotum without appreciable skin rashes. Extremities: Upper and lower extremities are warm and well perfused. 2+ peripheral edema in the lower extremities bilaterally with associated erythema extending up above the knees. Non-TTP. Psych: Well-developed, well-nourished, appropriately dressed for occasion. Behavior is cooperative and appropriate. Affect is WNL. Insight is appropriate. Principal Diagnosis Ascites Cirrhosis Discharge Exam General: A&Ox3. NAD. Cooperative. HEENT: Atraumatic, normocephalic. Pulm: Diminished bibasilar aeration. -wheezes, -rales, -rhonchi. Symmetrical chest rise. No increase work of breathing. No respiratory distress. Cardiac: RRR, -mrg. Radial pulses intact and symmetrical. Abdominal: soft, +distension, mild tenderness without guarding/rebound, BS x 4 : +scrotal swelling Discharge Data Allergies Allergy/AdvReac Type Severity Reaction Status Date / Time No Known Allergies Allergy Verified 06/12/22 20:21 Consultations 06/12/22 18:44 ED Decision to Admit Stat 06/12/22 18:45 Consult Radiology Routine 06/14/22 12:15 Consult Gastroenterology Routine Procedures Performed Operation Date: 06/14/22 08:00 <No data on this case meets the specified criteria> Ordered Studies 06/14/22 11:26 US paracentesis abd w/image Routine 06/16/22 09:00 US paracentesis abd w/image Routine 06/19/22 10:33 US paracentesis abd w/image Routine Hospital Course (1) Abdominal ascites: This is a 61-year-old male with a history of chronic hepatitis C, cirrhosis, alcohol abuse, IV drug use, OUD on Suboxone, AAA, GERD, type 2 diabetes (A1c 9.8% in 1022), COPD w/ chronic O2 requirement of 2 L, ELINA, hypertension who reported to [facility] for evaluation of shortness of breath, progressive abdominal distention, scrotal discomfort, and significant (+22kg) weight gain -- consistent with interval development of abdominoscrotal ascites otherwise without e/o acute liver failure. Abdominoscrotal Ascites * Significant abdominal distention with +TTP and extension into the scrotum -- weight 110 on 06/07, on admission at 132 kg (+22kg weight gain) * Suspect secondary to progressing cirrhotic burden as well as dietary indiscretion (multiple cans of soup a day, endorses using salt shaker with most things) * Since admission, over 12 L of abdominal fluid have been drawn off. * Continue sublingual morphine as he is achieving good pain control at this and this can be used outpatient. * Gastroenterology following, recommendations appreciated: -- Started spironolactone 100 mg, switched IV Lasix to oral Bumex 1mg BID on 06/22 given better bioavailability than oral Lasix. Continue to monitor renal function. Consider increasing Bumex as tolerated - per PCP/GI -- Facilitating hepatology referral more locally due to insurance issues with [facility] * Patient is still with ascites despite removal of 12.4L total -- ? plan for serial paracenteses after leaving the hospital; appreciate GI input on how to best do this (2) Cirrhosis: Cirrhosis * Likely multifactorial etiology -- alcohol-related (currently in remission), chronic HCV (untreated) * Currently follows with [facility] - getting established / [facility] Hepatology for further care, ?possible transplant * MELD score 17 on admission * Last EGD in 2020 -- no acute concerns * Continue maintenance medications: propranolol, Aldactone, furosemide, lactulose, rifaximin * LFTs with evidence of mild hepatitis -- likely resolving from last visit -- but thankfully no e/o acute decompensation or encephalopathy * Chronic steroid use for elevated MDF and good response to methylpred during la st visit deferred given untreated HCV * Hepatotoxic meds to be avoided, continue opioids for pain control and avoid NSAIDs. May use low-dose Tylenol but will try to avoid given patient's liver history. (3) Venous stasis dermatitis: Venous Stasis Dermatitis * Suspect lower extremity skin changes are more likely dermatitis with known chronic edema and worsening anasarca * Compression stockings, elevate legs, mobile exercises while here * Continue diuresis therapy for cirrhosis (4) Alcohol abuse, in remission: EtOH Abuse * In remission - has not drank since prior to last admission * Continue thiamine and folate * As above, see cirrhosis (5) Type 2 diabetes mellitus: T2DM * A1c 9.8% in February 2022 * SSI, Lantus 50U qHS (normally 80), CC diet (6) Hepatitis C: Chronic Hepatitis C * Untreated. Reportedly set-up to see [facility] for treatment * Engage nurse navigator prior to discharge to ensure adequate follow-up for treatment (7) Thrombocytopenia: Thrombocytopenia * Secondary to cirrhosis. Chronic. Stable. (8) GERD (gastroesophageal reflux disease): GERD * PPI (9) Acute hepatitis: Hepatitis / Elevated LFTs * Likely multifactorial - resolving prior episode of alcoholic hepatitis -- numbers are best they've been in a while * Improved since arrival. No present concern of acute liver failure or worsening hepatitis (10) Anxiety: Anxiety * Patient with episode of increased anxiety / "panic" today * Responded well to 1mg Ativan IV * Continue to monitor * Patient notes hx of anxiety and is trying to get established with outpatient psychiatry * He is not on any medication for anxiety at baseline Plan Home with home health/home PT Total Time Total Time Spent Total Time Spent (In Minutes): 30 minutes Discharge Plan Discharge Items Patient Disposition: Home - Home Health Services Reason For Visit: SHORTNESS OF BREATH, ACUTE LIVER FAILURE Discharge Diagnosis: Ascites Cirrhosis Activity: Per Instructions section Non-emergency contact: Primary Care Provider and Cardiology Specialist Call non-emergency contact if: you have any medication questions Follow-up/Referrals: Azam Leach DO [Physician] - (patient will also need referral to local lay brother ) Bobby Leslie MD [Primary Care Provider] - (please schedule f/u within 1 week of discharge) Diet: Low Sodium (2gm) Addtl Attending Provider Instructions: You were admitted to [facility] from 06/12 - 06/23 for abdominal and scrotal swelling. You had several paracenteses with removal of fluid, and you were started with Spironolactone and had your diuretic switched from Lasix to Bumex which may be more effective. Our GI doctors helped coordinate your care while and medications while you were here. You will be discharged on 06/23 with home health services and home physical therapy set up. You should continue to take Bumex twice per day; please do not take Lasix anymore. You will also continue to take Spironolactone daily. You can also continue to take a pain medication called Roxanol as needed for pain. You should follow up closely with both your PCP and your GI doctor; it may be necessary to get you scheduled for another paracentesis soon after discharge to get more fluid out of your abdomen. Please continue to take your other home medications as scheduled. It was a pleasure to help provide your care while you were hospitalized. Pending Studies at Discharge: No Stand-Alone Forms: My [facility], Smoking Cessation Medications and DC Order Prescriptions: New bumetanide 1 mg tablet 1 mg PO BID Qty: 60 1RF spironolactone 100 mg tablet 100 mg PO DAILY Qty: 30 1RF Continued insulin lispro [Humalog U-100 Insulin] 100 unit/mL Solution 30 unit SUBCUT TIDM insulin glargine [Lantus Solostar U-100 Insulin] 100 unit/mL (3 mL) Insulin Pen 80 unit SUBCUT BID omeprazole 20 mg capsule,delayed release(DR/EC) 20 mg PO DAILY Rx Instructions: ordered bid lidocaine 5 % ointment 1 applic topical QID PRN (Reason: Pain) Rx Instructions: apply to affected area ipratropium-albuterol 0.5 mg-3 mg(2.5 mg base)/3 mL solution for nebulization 3 ml INHALATION QID PRN (Reason: Shortness Of Breath Or Wheezing) Xifaxan 550 mg Tablet 550 mg PO BID 30 Days Qty: 60 0RF Rx Instructions: was filled 06/02/2022 but he does not remember it. gabapentin 800 mg tablet 800 mg PO TID aspirin [Chavo Low Dose Aspirin] 81 mg Tablet,Delayed Release (Dr/Ec) 81 mg PO DAILY buprenorphine HCl 8 mg tablet, sublingual 8 mg SUBLINGUAL TID propranolol 10 mg Tablet 10 mg PO BID Qty: 60 0RF lactulose 20 gram/30 mL Solution 20 g PO TID Qty: 60 0RF Discontinued furosemide [Lasix] 40 mg Tablet 40 mg PO DAILY Rx Instructions: PER PATIENT Admission Data Admit Date/Time: 06/12/22 18:45 Attending Provider: Lencho Prasad Admit Provider: Lencho Torres Primary Care Provider: Bobby Leslie Other Providers: Regla Farris ; [facility] ; Jameel Mcgee ; Hafsa Anderson ; Trinidad Bullock ; Remi Hernandez ; Ramesh Hess ; James Lemus ; Adriano Sparks ; Bhavani Hernandes ; Azam Almendarez ; Dimas Waller ; Thor Harris ; Gerson Betts ; Max Cochran ; Azam Leach
[2022-06-23] MEDS: MAGNESIUM SULFATE / D5W 1 GM/100 ML BAG IV SCH ×2 (12:47→15:37)
--- NOTE | 2022-06-23 17:51 | Billing Data ---
Date of Service June 23, 2022 Coding Level of Care Code 50867 SUB INP/OBS CARE
[2022-06-23] MEDS: MAGNESIUM OXIDE 400 MG TAB PO SCH (20:48)
[2022-06-23] MEDS: ZOLPIDEM TARTRATE 5 MG TAB PO PRN (20:48)
[2022-06-23] MEDS: LANTUS PER UNIT CHARGE SQ SCH (20:52)
[2022-06-24] MEDS: MoRPHine SULFATE 10 MG/0.5 ML UDP PO PRN ×3 (04:31→23:17)
[2022-06-24 07:12] LABS: Albumin Globulin Ratio 0.9 (0.9-2); Albumin Level 2.3 gm/dl (3.4-5.0); BUN Creatinine Ratio 15.2 (10-20); Bilirubin,Total 1.3 mg/dl (0.2-1.0); Calcium 8.2 mg/dl (8.5-10.1); Creatinine Clr Calc Pharmacy 111.9 ml/min; Est GFR (African American) 105.1 ml/min; Est GFR (Non-African American) 90.7 ml/min; Globulin 2.7 gm/dl (2.5-4.0); Magnesium 1.3 mg/dl (1.7-2.4); Potassium 3.7 mmol/L (3.5-5.1)
[2022-06-24] MEDS: FOLIC ACID 1 MG TAB PO SCH (08:11)
[2022-06-24] MEDS: ASPIRIN 81 MG ECTAB PO SCH (08:11)
[2022-06-24] MEDS: NICOTINE 14 MG/24 HR PATCH TD SCH (08:11)
[2022-06-24] MEDS: THIAMINE HCL 100 MG TAB PO SCH (08:11)
[2022-06-24] MEDS: PANTOprazole 40 MG TAB PO SCH ×2 (08:11→20:58)
[2022-06-24] MEDS: SPIRONOLACTONE 100 MG TAB PO SCH (08:11)
[2022-06-24] MEDS: MAGNESIUM OXIDE 400 MG TAB PO SCH ×2 (08:12→21:00)
[2022-06-24] MEDS: PROPRANOLOL HCL 10 MG TAB PO SCH ×2 (08:12→20:59)
[2022-06-24] MEDS: ALFUZOSIN HCL 10 MG TAB PO SCH (08:12)
[2022-06-24] MEDS: POTASSIUM CHLORIDE CRTAB 20 MEQ TABCR PO SCH (08:12)
[2022-06-24] MEDS: rifAXIMin 550 MG TABLET PO SCH ×2 (08:12→20:57)
[2022-06-24] MEDS: BUMETANIDE 1 MG TAB PO SCH ×2 (08:13→20:59)
[2022-06-24] MEDS: LACTULOSE SYRUP 20 GM/30 ML UDC PO SCH ×3 (08:13→20:57)
[2022-06-24] MEDS: buprenorphine HCL 8 MG SUBL SL SCH ×3 (08:21→20:57)
[2022-06-24] MEDS: GABAPENTIN 250 MG/5 ML 470 ML BTL PO SCH ×3 (08:21→20:57)
--- NOTE | 2022-06-24 08:43 | Discharge Summary ---
Date of Service June 24, 2022 Discharge Data Allergies Allergy/AdvReac Type Severity Reaction Status Date / Time No Known Allergies Allergy Verified 06/12/22 20:21 Consultations 06/12/22 18:44 ED Decision to Admit Stat 06/12/22 18:45 Consult Radiology Routine 06/14/22 12:15 Consult Gastroenterology Routine Procedures Performed Operation Date: 06/14/22 08:00 <No data on this case meets the specified criteria> Ordered Studies 06/14/22 11:26 US paracentesis abd w/image Routine 06/16/22 09:00 US paracentesis abd w/image Routine 06/19/22 10:33 US paracentesis abd w/image Routine Hospital Course (1) Abdominal ascites: This is a 61-year-old male with a history of chronic hepatitis C, cirrhosis, alcohol abuse, IV drug use, OUD on Suboxone, AAA, GERD, type 2 diabetes (A1c 9.8% in 1022), COPD w/ chronic O2 requirement of 2 L, ELINA, hypertension who reported to [facility] for evaluation of shortness of breath, progressive abdominal distention, scrotal discomfort, and significant (+22kg) weight gain -- consistent with interval development of abdominoscrotal ascites otherwise without e/o acute liver failure. Abdominoscrotal Ascites * Significant abdominal distention with +TTP and extension into the scrotum -- weight 110 on 06/07, on admission at 132 kg (+22kg weight gain) * Suspect secondary to progressing cirrhotic burden as well as dietary indis cretion (multiple cans of soup a day, endorses using salt shaker with most things) *Since admission, over 12 L of abdominal fluid have been drawn off. * Continue sublingual morphine as he is achieving good pain control at this and this can be used outpatient. * Gastroenterology following, recommendations appreciated: -- Started spironolactone 100 mg,switched IV Lasix to oral Bumex 1mg BID on 06/22 given better bioavailability than oral Lasix. Continue to monitor renal function. Consider increasing Bumex as tolerated. -- Facilitating hepatology referral more locally due to insurance issues with [facility] * Patient is still with a profound degree of ascites despite removal of 12.4L total -- ? plan for serial paracenteses after leaving the hospital; appreciate GI input on how to best do this (2) Cirrhosis: Plan: Cirrhosis * Likely multifactorial etiology -- alcohol-related (currently in remission), chronic HCV (untreated) * Currently follows with [facility] - getting established / [facility] Hepatology for further care, ?possible transplant * MELD score 17 on admission * Last EGD in 2020 -- no acute concerns * Continue maintenance medications: propranolol, Aldactone, furosemide, lactulose, rifaximin * LFTs with evidence of mild hepatitis -- likely resolving from last visit -- but thankfully no e/o acute decompensation or encephalopathy * Chronic steroid use for elevated MDF and good response to methylpred during last visit deferred given untreated HCV * Hepatotoxic meds to be avoided, continue opioids for pain control and avoid NSAIDs. May use low-dose Tylenol but will try to avoid given patient's liver history. (3) Venous stasis dermatitis: Plan: Venous Stasis Dermatitis * Suspect lower extremity skin changes are more likely dermatitis with known chronic edema and worsening anasarca * Compression stockings, elevate legs, mobile exercises while here * Continue diuresis therapy for cirrhosis (4) Alcohol abuse, in remission: Plan: EtOH Abuse * In remission - has not drank since prior to last admission * Continue thiamine and folate * As above, see cirrhosis (5) Type 2 diabetes mellitus: Plan: T2DM * A1c 9.8% in February 2022 * SSI, Lantus 50U qHS (normally 80), CC diet (6) Hepatitis C: Plan: Chronic Hepatitis C * Untreated. Reportedly set-up to see [facility] for treatment * Engage nurse navigator prior to discharge to ensure adequate follow-up for treatment (7) Thrombocytopenia: Plan: Thrombocytopenia * Secondary to cirrhosis. Chronic. Stable. (8) GERD (gastroesophageal reflux disease): Plan: GERD * PPI (9) Acute hepatitis: Plan: Hepatitis / Elevated LFTs * Likely multifactorial - resolving prior episode of alcoholic hepatitis -- numbers are best they've been in a while * Improved since arrival. No present concern of acute liver failure or worsening hepatitis (10) Anxiety: Plan: Anxiety * Patient with episode of increased anxiety / "panic" today * Responded well to 1mg Ativan IV * Continue to monitor * Patient notes hx of anxiety and is trying to get established with outpatient psychiatry * He is not on any medication for anxiety at baseline Plan Code: Full Diet: CC, low Na with fluid restriction PPX: SCDs Dispo: MST. PT/OT evaluations completed and recommending d/c to SNF,placement pending. No word from [facility] as of yet which would likely be his only means of going to a SNF facility while being on Subutex. If this falls through, we will have to coordinate to get him sent home with home PT and a sure there is a good care plan for him. (2) Cirrhosis: (3) Venous stasis dermatitis: (4) Alcohol abuse, in remission: (5) Type 2 diabetes mellitus: (6) Hepatitis C: (7) Thrombocytopenia: (8) GERD (gastroesophageal reflux disease): (9) Acute hepatitis: (10) Anxiety: Discharge Plan Discharge Items Patient Disposition: Home - Home Health Services Reason For Visit: SHORTNESS OF BREATH, ACUTE LIVER FAILURE Discharge Diagnosis: Ascites Cirrhosis Activity: Per Instructions section Non-emergency contact: Primary Care Provider and Health Science Specialist Call non-emergency contact if: you have any medication questions Follow-up/Referrals: Azam Leach DO [Physician] - (patient will also need referral to local clergy member ) Bobby Leslie MD [Primary Care Provider] - (please schedule f/u within 1 week of discharge) Diet: Low Sodium (2gm) Addtl Attending Provider Instructions: You were admitted to [facility] from 06/12 - 06/23 for abdominal and scrotal swelling. You had several paracenteses with removal of fluid, and you were started with Spironolactone and had your diuretic switched from Lasix to Bumex which may be more effective. Our GI doctors helped coordinate your care while and medications while you were here. You will be discharged on 06/23 with home health services and home physical therapy set up. You should continue to take Bumex twice per day; please do not take Lasix anymore. You will also continue to take Spironolactone daily. You can also continue to take a pain medication called Roxanol as needed for pain. You should follow up closely with both your PCP and your GI doctor; it may be necessary to get you scheduled for another paracentesis soon after discharge to get more fluid out of your abdomen. Please continue to take your other home medications as scheduled. It was a pleasure to help provide your care while you were hospitalized. Pending Studies at Discharge: No Stand-Alone Forms: [facility], Smoking Cessation Medications and DC Order Prescriptions: New bumetanide 1 mg tablet 1 mg PO BID Qty: 60 1RF spironolactone 100 mg tablet 100 mg PO DAILY Qty: 30 1RF morphine concentrate 100 mg/5 mL (20 mg/mL) solution 5 mg PO Q6H PRN (Reason: pain) Qty: 15 0RF Rx Instructions: 5mg (0.25ml) per dose; for clarification - using due to SL absorption - did not have relief w po meds, and we suspect gut edema from ascites Continued insulin lispro [Humalog U-100 Insulin] 100 unit/mL Solution 30 unit SUBCUT TIDM insulin glargine [Lantus Solostar U-100 Insulin] 100 unit/mL (3 mL) Insulin Pen 80 unit SUBCUT BID omeprazole 20 mg capsule,delayed release(DR/EC) 20 mg PO DAILY Rx Instructions: ordered bid lidocaine 5 % ointment 1 applic topical QID PRN (Reason: Pain) Rx Instructions: apply to affected area ipratropium-albuterol 0.5 mg-3 mg(2.5 mg base)/3 mL solution for nebulization 3 ml INHALATION QID PRN (Reason: Shortness Of Breath Or Wheezing) Xifaxan 550 mg Tablet 550 mg PO BID 30 Days Qty: 60 0RF Rx Instructions: was filled 06/02/2022 but he does not remember it. gabapentin 800 mg tablet 800 mg PO TID aspirin [Chavo Low Dose Aspirin] 81 mg Tablet,Delayed Release (Dr/Ec) 81 mg PO DAILY buprenorphine HCl 8 mg tablet, sublingual 8 mg SUBLINGUAL TID propranolol 10 mg Tablet 10 mg PO BID Qty: 60 0RF lactulose 20 gram/30 mL Solution 20 g PO TID Qty: 60 0RF Discontinued furosemide [Lasix] 40 mg Tablet 40 mg PO DAILY Rx Instructions: PER PATIENT Admission Data Admit Date/Time: 06/12/22 18:45 Attending Provider: Lencho Prasad Admit Provider: Lencho Torres Primary Care Provider: Bobby Leslie Other Providers: Regla Farris ; [facility] ; Jameel Mcgee ; Hafsa Snider ; Trinidad Bullock ; Remi Hernandez ; Ramesh Hess ; James Lemus ; Adriano Sparks ; Bhavani Hernandes ; Azam Almendarez. ; Dimas Waller ; Thor Harris. ; Gerson Betts ; Max Cochran ; Azam Leach.
[2022-06-24] MEDS: INSULIN ASPART PER UNIT SC SCH ×4 (08:45→21:42)
[2022-06-24] MEDS: MAGNESIUM SULFATE / D5W 1 GM/100 ML BAG IV SCH ×2 (09:24→11:06)
--- NOTE | 2022-06-24 12:15 | Hospitalist Progress Note ---
Date of Service June 24, 2022 Assessment & Plan (1) Abdominal ascites: Plan: This is a 61-year-old male with a history of chronic hepatitis C, cirrhosis, alcohol abuse, IV drug use, OUD on Suboxone, AAA, GERD, type 2 diabetes (A1c 9.8% in 1022), COPD w/ chronic O2 requirement of 2 L, ELINA, hypertension who reported to [facility] for evaluation of shortness of breath, progressive abdominal distention, scrotal discomfort, and significant (+22kg) weight gain -- consistent with interval development of abdominoscrotal ascites otherwise without e/o acute liver failure. Abdominoscrotal Ascites * Significant abdominal distention with +TTP and extension into the scrotum -- weight 110 on 06/07, on admission at 132 kg (+22kg weight gain) * Suspect secondary to progressing cirrhotic burden as well as dietary indiscretion (multiple cans of soup a day, endorses using salt shaker with most things) *Since admission, over 12 L of abdominal fluid have been drawn off. * Continue sublingual morphine as he is achieving good pain control at this and this can be used outpatient. * Gastroenterology following, recommendations appreciated: -- Started spironolactone 100 mg,switched IV Lasix to oral Bumex 1mg BID on 06/22 given better bioavailability than oral Lasix. Continue to monitor renal function. Consider increasing Bumex as tolerated. -- Facilitating hepatology referral more locally due to insurance issues with [facility] * Patient is still with a profound degree of ascites despite removal of 12.4L total -- ? plan for serial paracenteses after leaving the hospital; appreciate GI input on how to best do this Cirrhosis * Likely multifactorial etiology -- alcohol-related (currently in remission), chronic HCV (untreated) * Currently follows with [facility] - getting established w/ [facility] Hepatology for further care, ?possible transplant * MELD score 17 on admission * Last EGD in 2020 -- no acute concerns * Continue maintenance medications: propranolol, Aldactone, furosemide, lactulose, rifaximin * LFTs with evidence of mild hepatitis -- likely resolving from last visit -- but thankfully no e/o acute decompensation or encephalopathy * Chronic steroid use for elevated MDF and good response to methylpred during last visit deferred given untreated HCV * Hepatotoxic meds to be avoided, continue opioids for pain control and avoid NSAIDs. May use low-dose Tylenol but will try to avoid given patient's liver history. Venous Stasis Dermatitis * Suspect lower extremity skin changes are more likely dermatitis with known chronic edema and worsening anasarca * Compression stockings, elevate legs, mobile exercises while here * Continue diuresis therapy for cirrhosis EtOH Abuse * In remission - has not drank since prior to last admission * Continue thiamine and folate * As above, see cirrhosis T2DM * A1c 9.8% in February 2022 * SSI, Lantus 50U qHS (normally 80), CC diet Chronic Hepatitis C * Untreated. Reportedly set-up to see [facility] for treatment * Engage nurse navigator prior to discharge to ensure adequate follow-up for treatment Thrombocytopenia * Secondary to cirrhosis. Chronic. Stable. GERD * PPI Hepatitis / Elevated LFTs * Likely multifactorial - resolving prior episode of alcoholic hepatitis -- numbers are best they've been in a while * Improved since arrival. No present concern of acute liver failure or worsening hepatitis Anxiety * Patient with episode of increased anxiety / "panic" today * Responded well to 1mg Ativan IV * Continue to monitor * Patient notes hx of anxiety and is trying to get established with outpatient psychiatry * He is not on any medication for anxiety at baseline Plan Code: Full Diet: CC, low Na with fluid restriction PPX: SCDs Dispo: MST. He will be discharged home with -- will have to be on Monday 06/26 as patient's sister was unable to brass pickler the equipment he needs at home (2) Cirrhosis: (3) Venous stasis dermatitis: (4) Alcohol abuse, in remission: (5) Type 2 diabetes mellitus: (6) Hepatitis C: (7) Thrombocytopenia: (8) GERD (gastroesophageal reflux disease): (9) Acute hepatitis: (10) Anxiety: Admission and Anticipated Discharge Date Admission Date: June 12, 2022 Supervising Physician Co-Signing Physician Notes I personally examined the patient and verified all pichardo points of history and exam, discussed case, and agree with decision making with Dr Shelton set for home when we talked - then sister called - no equipment yet she would much prefer to wait until she has all she needs to take care of him. he complains of pain - belly, scrotum as well as headache. we discuss pain control and gradual improvement/gradual weaning of medications - in this respect discuss the importance of having more of a graded view of pain rather than viewing pain as present/absent (ie discussed having a scale of 0-10 not 0 or 10) Vitals noted, in general he is awake and alert pleasant no distress. HEENT normocephalic atraumatic mucous membranes moist. Breathing unlabored no accessory muscle use good effort. Skin shows no rashes no pallor or icterus. Neuro without focal deficits.ost/msk - L>R suboccipitals high tone/tender/decreased ROM - inhibitory pressure - improved / headache improved / patient tolerated well. labs reviewed. Ascites/scrotal edemadue to cirrhosis with portal hypertension. total ~8L removed over 2 paracenteses this stay. For now we will hold off on any direct intervention on paracentesis site leaking, as a little bit further fluid removal could actually be beneficial. changed to PO diuretics. explained risks/benefits and need for close outpt monitoring. Reiterated low-sodium diet. Discussed pain control again. Uncontrolled paindoing better on sublingual morphine. I suspect he was simply not absorbing p.o. oxycodone well due to gut edema. discussed weaning pain meds over time, viewing pain as graded rather than boolean. tension headache/Cspine somatic dysfunction - OMT as above otherwise as above Subjective Patient feels overall better today. Does report some lower right abdominal pain. Has noticed swelling improved in abdomen and scrotum. Review of Systems Review of Systems: All systems reviewed & are unremarkable except as noted in Subjective Physical Exam Physical Exam: General: A&Ox3. NAD. Cooperative. HEENT: Atraumatic, normocephalic. Pulm: Diminished bibasilar aeration. -wheezes, -rales, -rhonchi. Symmetrical chest rise. No increase work of breathing. No respiratory distress. Cardiac: RRR, -mrg. Radial pulses intact and symmetrical. Abdominal: soft, +distension, mild tenderness without guarding/rebound, BS x 4 : +scrotal swelling Results & Data Results & Data ([facility]) Vital Signs (Past 12 Hours) Vital Signs Temp Pulse Pulse Resp BP Pulse Ox O2 Del Method 06/24/22 08:00 Nasal Cannula 06/24/22 08:00 37.2 C 71 18 103/57 L 93 Nasal Cannula 06/24/22 07:46 66 06/24/22 06:40 36.7 C 72 20 107/63 96 Nasal Cannula 06/24/22 02:56 36.6 C 70 18 103/62 96 Nasal Cannula 06/24/22 01:00 59 L O2 Flow Rate 06/24/22 08:00 2 06/24/22 08:00 2 06/24/22 07:46 06/24/22 06:40 2 06/24/22 02:56 2 06/24/22 01:00 Resident Activity Tracking Resident Involvement: Resident Care Provided Care Provided: Adult Hospital Medicine
[2022-06-24] MEDS: ALBUT/IPRATROP 3MG/0.5MG NEB 3 ML VIAL INH PRN (13:09)
--- NOTE | 2022-06-24 16:48 | Billing Data ---
Date of Service June 24, 2022 Coding Level of Care Code 10037 SUB INP/OBS CARE MIN
--- NOTE | 2022-06-24 16:49 | Hospitalist Progress Note ---
Date of Service June 24, 2022 Assessment & Plan Admission and Anticipated Discharge Date Admission Date: June 12, 2022 Results & Data Results & Data ([facility]) Vital Signs (Past 12 Hours) Vital Signs Temp Pulse Pulse Resp BP BP Pulse Ox 06/24/22 15:25 97.7 F 62 18 101/65 96 06/24/22 15:07 64 06/24/22 13:09 74 18 94 06/24/22 12:49 98.6 F 70 20 109/57 L 93 06/24/22 08:00 06/24/22 08:00 99.0 F 71 18 103/57 L 93 06/24/22 07:46 66 06/24/22 06:40 98.1 F 72 20 107/63 96 O2 Del Method O2 Flow Rate 06/24/22 15:25 Nasal Cannula 2.5 06/24/22 15:07 06/24/22 13:09 Nasal Cannula 2 06/24/22 12:49 Nasal Cannula 2 06/24/22 08:00 Nasal Cannula 2 06/24/22 08:00 Nasal Cannula 2 06/24/22 07:46 06/24/22 06:40 Nasal Cannula 2 PG Care Time/CCT Total # of Minutes Spent Total Time Spent with Patient: Total time spent is greater than 50% in coordination of care (as documented) at patient's floor/unit and/or counseling patient: Coding Level of Care Code None CPT Codes Musculoskeletal - Musculoskeletal: [address] 1-2 Body regions ([id number])
[2022-06-24] MEDS: ZOLPIDEM TARTRATE 5 MG TAB PO PRN (20:57)
[2022-06-24] MEDS: LANTUS PER UNIT CHARGE SQ SCH (21:42)
--- NOTE | 2022-06-25 07:19 | Hospitalist Progress Note ---
Date of Service June 25, 2022 Assessment & Plan (1) Abdominal ascites: Plan: This is a 61-year-old male with a history of chronic hepatitis C, cirrhosis, alcohol abuse, IV drug use, OUD on Suboxone, AAA, GERD, type 2 diabetes (A1c 9.8% in 1022), COPD w/ chronic O2 requirement of 2 L, ELINA, hypertension who reported to [facility] for evaluation of shortness of breath, progressive abdominal distention, scrotal discomfort, and significant (+22kg) weight gain -- consistent with interval development of abdominoscrotal ascites otherwise without e/o acute liver failure. Abdominoscrotal Ascites * Significant abdominal distention with +TTP and extension into the scrotum -- weight 110 on 06/07, on admission at 132 kg (+22kg weight gain) * Suspect secondary to progressing cirrhotic burden as well as dietary indiscretion (multiple cans of soup a day, endorses using salt shaker with most things) *Since admission, over 12 L of abdominal fluid have been drawn off. * Continue sublingual morphine as he is achieving good pain control at this and this can be used outpatient. * Gastroenterology following, recommendations appreciated: -- Started spironolactone 100 mg,switched IV Lasix to oral Bumex 1mg BID on 06/22 given better bioavailability than oral Lasix. Continue to monitor renal function. Consider increasing Bumex as tolerated. -- Facilitating hepatology referral more locally due to insurance issues with [facility] * Patient is still with a profound degree of ascites despite removal of 12.4L total -- ? plan for serial paracenteses after leaving the hospital; appreciate GI input on how to best do this Cirrhosis * Likely multifactorial etiology -- alcohol-related (currently in remission), chronic HCV (untreated) * Currently follows with [facility] - getting established w/ [facility] Hepatology for further care, ?possible transplant * MELD score 17 on admission * Last EGD in 2020 -- no acute concerns * Continue maintenance medications: propranolol, Aldactone, furosemide, lactulose, rifaximin * LFTs with evidence of mild hepatitis -- likely resolving from last visit -- but thankfully no e/o acute decompensation or encephalopathy * Chronic steroid use for elevated MDF and good response to methylpred during last visit deferred given untreated HCV * Hepatotoxic meds to be avoided, continue opioids for pain control and avoid NSAIDs. May use low-dose Tylenol but will try to avoid given patient's liver history. Venous Stasis Dermatitis * Suspect lower extremity skin changes are more likely dermatitis with known chronic edema and worsening anasarca * Compression stockings, elevate legs, mobile exercises while here * Continue diuresis therapy for cirrhosis EtOH Abuse * In remission - has not drank since prior to last admission * Continue thiamine and folate * As above, see cirrhosis T2DM * A1c 9.8% in February 2022 * SSI, Lantus 50U qHS (normally 80), CC diet Chronic Hepatitis C * Untreated. [facility] * Engage nurse navigator prior to discharge to ensure adequate follow-up for treatment Thrombocytopenia * Secondary to cirrhosis. Chronic. Stable. GERD * PPI Hepatitis / Elevated LFTs * Likely multifactorial - resolving prior episode of alcoholic hepatitis -- numbers are best they've been in a while * Improved since arrival. No present concern of acute liver failure or worsening hepatitis Anxiety * Patient with episode of increased anxiety / "panic" today * Responded well to 1mg Ativan IV * Continue to monitor * Patient notes hx of anxiety and is trying to get established with outpatient psychiatry * He is not on any medication for anxiety at baseline Plan Code: Full Diet: CC, low Na with fluid restriction PPX: SCDs Dispo: MST. He will be discharged home with -- will have to be on Monday 06/26 as patient's sister was unable to slate picker the equipment he needs at home (2) Cirrhosis: (3) Venous stasis dermatitis: (4) Alcohol abuse, in remission: (5) Type 2 diabetes mellitus: (6) Hepatitis C: (7) Thrombocytopenia: (8) GERD (gastroesophageal reflux disease): (9) Acute hepatitis: (10) Anxiety: Admission and Anticipated Discharge Date Admission Date: June 12, 2022 Supervising Physician Co-Signing Physician Notes I personally examined the patient and verified all pichardo points of history and exam, discussed case, and agree with decision making with Dr Forrest Sleeping comfortably. Waiting on going home. Needs equipmentgiven that we were working on setting up for SNF/TCU but were unable to get approval, sister would understandably much prefer having all of the equipment at home before taking him home. That appears to likely be tomorrow. Vitals noted. Sleeping comfortably. Breathing unlabored. No distress. No pallor or icterus. Ascites/scrotal edemadue to cirrhosis with portal hypertension. total ~8L removed over 2 paracenteses this stay. For now we will hold off on any direct intervention on paracentesis site leaking, as a little bit further fluid removal could actually be beneficial. changed to PO diuretics. explained risks/benefits and need for close outpt monitoring previously. Reiterated low- sodium diet. Uncontrolled paindoing better on sublingual morphine. I suspect he was simply not absorbing p.o. oxycodone well due to gut edema. Previously discussed weaning pain meds over time, viewing pain as graded rather than boolean. tension headache/Cspine somatic dysfunction - OMT done yesterday otherwise as above Subjective Patient stable today, with occasional abdominal/scrotal pain. Has noticed swelling improved in abdomen and scrotum. Review of Systems Review of Systems: All systems reviewed & are unremarkable except as noted in HPI & below Physical Exam Physical Exam: General: A&Ox3. NAD. Cooperative. HEENT: Atraumatic, normocephalic. Pulm: Diminished bibasilar aeration. -wheezes, -rales, -rhonchi. Symmetrical chest rise. No increase work of breathing. No respiratory distress. Cardiac: RRR, -mrg. Radial pulses intact and symmetrical. Abdominal: soft, +distension, mild tenderness without guarding/rebound, BS x 4 : +scrotal swelling Results & Data Results & Data ([facility]) Vital Signs (Past 12 Hours) Vital Signs Temp Pulse Pulse Resp BP BP Pulse Ox 06/25/22 07:09 62 06/25/22 03:28 37.2 C 70 18 109/68 95 06/25/22 01:21 78 06/24/22 23:11 36.6 C 76 20 107/66 95 06/24/22 19:25 36.4 C L 63 18 117/70 95 O2 Del Method O2 Flow Rate 06/25/22 07:09 06/25/22 03:28 Nasal Cannula 2 06/25/22 01:21 06/24/22 23:11 Nasal Cannula 2 06/24/22 19:25 Nasal Cannula 3 Resident Activity Tracking Resident Involvement: Resident Care Provided Care Provided: Adult Hospital Medicine
[2022-06-25] MEDS: MoRPHine SULFATE 10 MG/0.5 ML UDP PO PRN ×3 (08:01→22:08)
[2022-06-25] MEDS: MAGNESIUM OXIDE 400 MG TAB PO SCH ×2 (08:02→21:08)
[2022-06-25] MEDS: ALFUZOSIN HCL 10 MG TAB PO SCH (08:02)
[2022-06-25] MEDS: ASPIRIN 81 MG ECTAB PO SCH (08:03)
[2022-06-25] MEDS: THIAMINE HCL 100 MG TAB PO SCH (08:03)
[2022-06-25] MEDS: PANTOprazole 40 MG TAB PO SCH ×2 (08:03→21:08)
[2022-06-25] MEDS: PROPRANOLOL HCL 10 MG TAB PO SCH ×2 (08:03→21:05)
[2022-06-25] MEDS: BUMETANIDE 1 MG TAB PO SCH (08:03)
[2022-06-25] MEDS: rifAXIMin 550 MG TABLET PO SCH ×2 (08:03→21:08)
[2022-06-25] MEDS: NICOTINE 14 MG/24 HR PATCH TD SCH (08:04)
[2022-06-25] MEDS: FOLIC ACID 1 MG TAB PO SCH (08:04)
[2022-06-25] MEDS: LACTULOSE SYRUP 20 GM/30 ML UDC PO SCH (08:05)
[2022-06-25] MEDS: GABAPENTIN 250 MG/5 ML 470 ML BTL PO SCH ×3 (08:05→21:14)
[2022-06-25] MEDS: POTASSIUM CHLORIDE CRTAB 20 MEQ TABCR PO SCH (08:05)
[2022-06-25] MEDS: SPIRONOLACTONE 100 MG TAB PO SCH (08:05)
[2022-06-25] MEDS: INSULIN ASPART PER UNIT SC SCH ×4 (08:33→21:02)
[2022-06-25] MEDS: buprenorphine HCL 8 MG SUBL SL SCH ×3 (08:34→21:03)
[2022-06-25] MEDS ORDERED: LACTULOSE SYRUP 20 GM/30 ML UDC PO SCH (09:00)
--- NOTE | 2022-06-25 14:31 | Billing Data ---
Date of Service June 25, 2022 Coding Level of Care Code 15686 SUB INP/OBS CARE
[2022-06-25 16:59] LABS: BUN Creatinine Ratio 15.8 (10-20); Calcium 8.2 mg/dl (8.5-10.1); Creatinine Clr Calc Pharmacy 107.6 ml/min; Est GFR (African American) 101.1 ml/min; Est GFR (Non-African American) 87.3 ml/min; Potassium 3.9 mmol/L (3.5-5.1)
[2022-06-25] MEDS: ALBUT/IPRATROP 3MG/0.5MG NEB 3 ML VIAL INH PRN (18:59)
[2022-06-25] MEDS: LANTUS PER UNIT CHARGE SQ SCH (21:03)
[2022-06-25] MEDS: LACTULOSE SYRUP 30 GM/45 ML UDP PO SCH (21:04)
[2022-06-25] MEDS: ZOLPIDEM TARTRATE 5 MG TAB PO PRN (21:14)
[2022-06-26] MEDS: MoRPHine SULFATE 10 MG/0.5 ML UDP PO PRN ×2 (03:53→09:57)
[2022-06-26] MEDS: SPIRONOLACTONE 100 MG TAB PO SCH (08:08)
[2022-06-26] MEDS: PROPRANOLOL HCL 10 MG TAB PO SCH (08:08)
[2022-06-26] MEDS: rifAXIMin 550 MG TABLET PO SCH (08:08)
[2022-06-26] MEDS: ASPIRIN 81 MG ECTAB PO SCH (08:08)
[2022-06-26] MEDS: LACTULOSE SYRUP 30 GM/45 ML UDP PO SCH ×2 (08:08→13:53)
[2022-06-26] MEDS: POTASSIUM CHLORIDE CRTAB 20 MEQ TABCR PO SCH (08:09)
[2022-06-26] MEDS: FOLIC ACID 1 MG TAB PO SCH (08:09)
[2022-06-26] MEDS: THIAMINE HCL 100 MG TAB PO SCH (08:09)
[2022-06-26] MEDS: NICOTINE 14 MG/24 HR PATCH TD SCH (08:09)
[2022-06-26] MEDS: ALFUZOSIN HCL 10 MG TAB PO SCH (08:09)
[2022-06-26] MEDS: MAGNESIUM OXIDE 400 MG TAB PO SCH (08:10)
[2022-06-26] MEDS: PANTOprazole 40 MG TAB PO SCH (08:10)
[2022-06-26] MEDS: buprenorphine HCL 8 MG SUBL SL SCH ×2 (08:17→13:53)
[2022-06-26] MEDS: GABAPENTIN 250 MG/5 ML 470 ML BTL PO SCH ×2 (08:18→13:53)
[2022-06-26] MEDS: INSULIN ASPART PER UNIT SC SCH ×3 (08:20→17:12)
[2022-06-26] MEDS ORDERED: BUMETANIDE 1 MG TAB PO SCH (09:00)
--- NOTE | 2022-06-26 17:09 | Discharge Summary ---
Date of Service June 26, 2022 Admission HPI Per Admitting Provider This is a 61-year-old male with a history of chronic hepatitis C, cirrhosis, alcohol abuse, IV drug use, OU D on Suboxone, AAA, GERD, type 2 diabetes (A1c 9.8% in 1022), COPD w/ chronic O2 requirement of 2 L, ELINA, hypertension who reported to [facility] for evaluation of shortness of breath and difficulty breathing. He has also noticed progressive abdominal distention and abdominal pain. Patient is consistent with his last hospital admission, he has been fully compliant with all of his medications. He was taken off spironolactone due to low blood pressure concerns. He says that he has actually been feeling surprisingly well from a mentation standpoint. However, he has noticed progressive swelling of his belly and scrotum. This is gone to a point where he cannot sit comfortably and he has significant pain with palpation over his belly. He does report some subjective fevers at home. Denies any persistent chills or night sweats. He says that he feels like he cannot cough because of how big his belly is and the pain associated with it. From a dietary perspective he endorses eating 2 cans of soup a day as well as using a saltshaker frequently. He does share with me that he is in the process of getting accepted to [facility]'s liver program, and 2 of their stipulations are that he quit smoking and remain off alcohol. He has been abstinent from alcohol since prior to his last admission. Denies any recent use of recreational drugs. He does endorse cutting down on his cigarette use. Of note, patient was recently admitted to [facility] and discharged on 05/27 for acute decompensated cirrhosis and encephalopathy thought to be secondary to hepatic encephalopathy, toxic contribution (e.g., medications), chronic alcohol abuse. There was concern for possible SBP, however, team was unable to get a paracentesis during this stay, for which an empiric course of ceftriaxone was completed. He was also treated with prednisolone too for high MDF score. In the ER, patient was found to be hypertensive to 147/81 with heart rate of 106. Weight at 132 kg from 110 kg on 06/07. He is saturating at 97% on room air, but was put on nasal cannula for comfort. Admission labs demonstrate chronic leukopenia at 4, chronic anemia at 10, chronic thrombocytopenia at 70 (improved from 27 on 05/27), INR 1.2. VBG revealed mild respiratory alkalosis at 7.44. Initial lites revealing sodium 134, BUN 27/creatinine 1.27. LFTs reviewed mixed hyperbilirubinemia with T bili 2.6, direct bilirubin 1.3, AST 54/ALT 22improved from prior. Albumin 2.6. COVID, flu, and RSV negative. Chest x-ray reveals cardiomegaly with pulmonary vascular congestion, largely unchanged compared to prior. He was given morphine, Zofran, ceftriaxone, and vancomycin. Principal Diagnosis Fluid overload secondary to Cirrhosis Discharge Exam Constitutional WD/WN, vitals as above Eyes + anicteric sclerae Neck normal visual inspection Respiratory normal respiratory effort Cardiovascular Rate/Rhythm: regular rate and regular rhythm Extremities: + edema Gastrointestinal (Abdomen) Inspection/Auscultation: + abdomen distended and normal bowel sounds Percussion/Palpation: + abdomen tender and abdomen soft Musculoskeletal Head/Neck/Chest: normocephalic and head atraumatic Skin no rashes, warm and dry Neurologic moves all extremities Psychiatric Orientation: alert and oriented x 3 Genitourinary + scrotal swelling Discharge Data Allergies Allergy/AdvReac Type Severity Reaction Status Date / Time No Known Allergies Allergy Verified 06/12/22 20:21 Consultations 06/12/22 18:44 ED Decision to Admit Stat 06/12/22 18:45 Consult Radiology Routine 06/14/22 12:15 Consult Gastroenterology Routine Procedures Performed Operation Date: 06/14/22 08:00 <No data on this case meets the specified criteria> Ordered Studies 06/14/22 11:26 US paracentesis abd w/image Routine 06/16/22 09:00 US paracentesis abd w/image Routine 06/19/22 10:33 US paracentesis abd w/image Routine Hospital Course (1) Abdominal ascites: This is a 61-year-old male with a history of chronic hepatitis C, cirrhosis, alcohol abuse, IV drug use, OUD on Suboxone, AAA, GERD, type 2 diabetes (A1c 9.8% in 1022), COPD w/ chronic O2 requirement of 2 L, ELINA, hypertension who reported to [facility] for evaluation of shortness of breath, progressive abdominal distention, scrotal discomfort, and significant (+22kg) weight gain -- consistent with interval development of abdominoscrotal ascites otherwise without e/o acute liver failure. Abdominoscrotal Ascites Patient presented with profound abdominal ascites and 3 paracenteses were performed pulling off 12 L of transudative fluid consistent with cirrhosis. At the time of discharge, his paracentesis site was still leaking pretty significantly and for this reason we put a urostomy bag to collect the fluid and for the patient to change on his own. Please address this at gastroenterology follow-up on 06/28/2022. Additionally , he was seen by our gastroenterology team who had started him on spironolactone 100 mg daily. Unfortunately the ascites and swelling in his scrotum is causing pretty significant pain. For this reason we are sending him with sublingual morphine as this seemed to absorb best given his ascites. Oxycodone was trialed, however, he did not absorb it well and his pain did not improve. Additionally his other modalities of pain control are limited given his history of cirrhosis, so Tylenol and NSAIDs are contraindicated. We also switched his Lasix to Bumex to help pull off more fluid and prevent him from accumulating so quickly. We are recommending getting the patient set up for serial paracenteses which will hopefully be coordinated through the gastroenterology office to help prevent him from coming to the hospital so frequently. Ultimately the patient does need a transplant and needs to be seen by a tertiary care facility to help facilitate this. Lastly, our physical therapy and Occupational Therapy teams were in to see him and recommended correction placement, however, due to his chronic Subutex usage, these facilities would not accept him. He ultimately decided best course of action reportedly for him to be discharged home with home health and home physical therapy with his sister checking up on him frequently and having close follow-up. Cirrhosis Patient had a MELD score of 17 on admission with an elevated MDF indicating the use of methylprednisone which was given during his hospitalization. As above, NSAIDs and acetaminophen are contraindicated for pain control, so we will utilize sublingual morphine in the outpatient setting until follow-up. As above has a follow-up appointment on 06/28/2022 for recommendations and treatment. Keep this appointment Venous Stasis Dermatitis * Suspect lower extremity skin changes are more likely dermatitis with known chronic edema and worsening anasarca * Compression stockings, elevate legs, mobile exercises while here * Continue diuresis therapy for cirrhosis Hx of Opioid Abuse *Continue Subutex 8 mg 3 times daily for history of opioid abuse EtOH Abuse * In remission - has not drank since prior to last admission * Continue thiamine and folate T2DM * A1c 9.8% in February 2022 *Strongly encouraged tighter glycemic control and recommend possibly seeing an coder operator routinely for poorly controlled diabetes Chronic Hepatitis C * Untreated. Reportedly set-up to see [facility] for treatment Thrombocytopenia * Secondary to cirrhosis. Chronic. Stable. GERD * Continue PPI Hepatitis / Elevated LFTs * Likely multifactoria * Improved since arrival. No present concern of acute liver failure or worsening hepatitis Anxiety * Patient notes hx of anxiety and is trying to get established with outpatient psychiatry * He is not on any medication for anxiety at baseline Plan Code: Full Diet: low Na with fluid restriction Dispo: Discharge home with home health and home PT (2) Cirrhosis: (3) Venous stasis dermatitis: (4) Alcohol abuse, in remission: (5) Type 2 diabetes mellitus: (6) Hepatitis C: (7) Thrombocytopenia: (8) GERD (gastroesophageal reflux disease): (9) Acute hepatitis: (10) Anxiety: Total Time Total Time Spent Total Time Spent (In Minutes): 30 Discharge Plan Discharge Items Patient Disposition: Home - Home Health Services Reason For Visit: SHORTNESS OF BREATH, ACUTE LIVER FAILURE Discharge Diagnosis: Ascites Cirrhosis Activity: Per Instructions section Non-emergency contact: Primary Care Provider and Relationship Consultant Call non-emergency contact if: you have any medication questions Follow-up/Referrals: Azam Leach DO [Physician] - (patient will also need referral to local manager business operations ) Bobby Leslie MD [Primary Care Provider] - (please schedule f/u within 1 week of discharge) Diet: Low Sodium (2gm) Addtl Attending Provider Instructions: You were admitted to [facility] from 06/12 - 06/23 for abdominal and scrotal swelling. While you are here, our radiology team performed 3 paracentesis pulling off 12 L of fluid total. This helped improved here abdominal and scrotal swelling. However, you do continue to have pain. For this reason, we are going to send you with pain medication to help keep your scrotal pain under control. You were additionally seen by our physical therapy team who when they worked with you recommended correction facility to help get your strength back up, however, due to your Subutex usage, the facilities were not able to accept you. For this reason I feel that the best course of action is to have you sent home with home health services and home physical therapy set up. These have already been set up for you by our case management teams. I set up an appointment for you with our gastroenterology team on 06/28/2022 at 11:20 AM. Please show up 15 minutes prior to your appointment. The idea is that we hope that they continue your chronic hepatitis C treatment as well as help get you set up for serial paracenteses to prevent your fluid levels from getting too high. Lastly please make an appointment with your primary care provider as soon as possible to have good continuity of care. If you are unable to do so please call me at my office: [phone] and we will get you in to make sure that you are taking care of. This is the [facility] residency clinic. Medication changes: We are adding on sublingual morphine for you to take at home as needed for scrotal pain. We switched your Lasix to Bumex as your body seems to absorb the Bumex a little bit better. Please take this twice a day to help keep fluid off of your abdomen and scrotum. Lifestyle changes: Please continue to limit the amount of sodium that you eat in your food. For you I highly recommend you stay below 1500 mg of sodium per day if not limit more. This is the biggest lifestyle modification you can currently make to reduce the rate that you are abdomen swells up. Bandages: From your paracenteses, you are leaking abdominal fluid at a pretty substantial right due to how rapidly your abdomen fills back up. For this reason we will put a colostomy bag around this wound so that the fluid will go into a bag rather than into a bandage that you have to change frequently. You will be sent home with a few bags to change it appropriately. Bring this up at your follow-up appointment with gastroenterology. Please continue to take your other home medications, especially her lactulose, as scheduled. It was a pleasure to help provide your care while you were hospitalized. Pending Studies at Discharge: No Stand-Alone Forms: My Remember The Member, Smoking Cessation Medications and DC Order Prescriptions: New bumetanide 1 mg tablet 1 mg PO BID Qty: 60 1RF spironolactone 100 mg tablet 100 mg PO DAILY Qty: 30 1RF morphine concentrate 100 mg/5 mL (20 mg/mL) solution 5 mg PO Q6H PRN (Reason: pain) Qty: 15 0RF Rx Instructions: 5mg (0.25ml) per dose; for clarification - using due to SL absorption - did not have relief w po meds, and we suspect gut edema from ascites Continued insulin lispro [Humalog U-100 Insulin] 100 unit/mL Solution 30 unit SUBCUT TIDM insulin glargine [Lantus Solostar U-100 Insulin] 100 unit/mL (3 mL) Insulin Pen 80 unit SUBCUT BID omeprazole 20 mg capsule,delayed release(DR/EC) 20 mg PO DAILY Rx Instructions: ordered bid lidocaine 5 % ointment 1 applic topical QID PRN (Reason: Pain) Rx Instructions: apply to affected area ipratropium-albuterol 0.5 mg-3 mg(2.5 mg base)/3 mL solution for nebulization 3 ml INHALATION QID PRN (Reason: Shortness Of Breath Or Wheezing) Xifaxan 550 mg Tablet 550 mg PO BID 30 Days Qty: 60 0RF Rx Instructions: was filled 06/02/2022 but he does not remember it. gabapentin 800 mg tablet 800 mg PO TID aspirin [Chavo Low Dose Aspirin] 81 mg Tablet,Delayed Release (Dr/Ec) 81 mg PO DAILY buprenorphine HCl 8 mg tablet, sublingual 8 mg SUBLINGUAL TID propranolol 10 mg Tablet 10 mg PO BID Qty: 60 0RF lactulose 20 gram/30 mL Solution 20 g PO TID Qty: 60 0RF Discontinued furosemide [Lasix] 40 mg Tablet 40 mg PO DAILY Rx Instructions: PER PATIENT Discharge Orders: Discharge Order (Routine); Ordered 06/26/22 Ordered By: Deandre Hamilton/Other Patient Handouts: Cirrhosis of Liver Dc, ED Ascites, ED Leg Swelling in Both Legs Admission Data Admit Date/Time: 06/12/22 18:45 Attending Provider: Sandy Harris Admit Provider: Lencho Torres Primary Care Provider: Bobby Leslie Other Providers: Regla Farris ; [facility] ; Jameel Mcgee ; Hafsa Anderson ; Trinidad Bullock ; Remi Hernandez ; Ramesh Hess ; James Lemus ; Adriano Sparks ; Bhavani Hernandes ; Azam Almendarez ; Dimas Waller ; Thor Harris ; Gerson Betts ; Max Cochran ; Azam Leach ; Lencho Prasad Other Interventions: Discharge Summary Assessment (RN) Last Done: 06/26/22 14:36 Supervising Physician Co-Signing Physician Notes Resident Physician Supervision Note: I independently interviewed and examined the patient and verified the pichardo history and physical, reviewed labs and image studies and agree with resident findings and care plan.
== END 2022-06-26 17:27 | disposition home health service (06) | DRG 441 ==
LOC: ED 15:09 → SUATTDRO 18:45 → 2N 18:45

== ENCOUNTER 2022-07-08 13:26 | Inpatient (IN) ==
--- NOTE | 2022-07-08 13:43 | Emergency Department Note ---
Impression & Plan Rib fracture, Abdominal ascites, Abdominal pain, Closed compression fracture of L1 vertebra, Pancytopenia, Hypomagnesemia, Acute constipation ED Provider Note NAME: KAYODE GREENFIELD JR AGE: 61 SEX: M : 1960 ARRIVES VIA: Ambulance INFORMANT: Patient, EMS ED PROVIDER(S): James Saucedo DO CHIEF COMPLAINT: Abdominal pain HPI: The patient is a 61-year-old male who has a history of cirrhosis from alcohol use as well as hepatitis C who presented to the emergency department by ambulance for evaluation of difficulty with pain. The patient states that he has been having abdominal pain over the course the last few days. He was just discharged from our facility for similar issues. The patient denies having any vomiting. He has nausea though he denies having any rectal bleeding. He denies having any black stool. He does complain of swelling in his abdomen as well as his legs. He states this is increased since his discharge. He recently had a paracentesis on . He denies having any fever. He also told the prehospital personnel that he was very depressed and having thoughts of starting to drink alcohol again with the plan to hurt himself. ROS: See above HPI for pertinent positives & negatives. A total of 10 systems reviewed and were otherwise negative. PAST MEDICAL HISTORY: See Below PAST SURGICAL HISTORY: See Below FAMILY HISTORY: See Below SOCIAL HISTORY: See Below HOME MEDICATIONS: See Below ALLERGIES: See Below VITALS: See Below PHYSICAL EXAMINATION: GENERAL: The patient is awake and alert. He is very anxious appearing EYES: The conjunctivae are clear. The pupils are round and reactive. EARS, NOSE, MOUTH AND THROAT: The nose is without any evidence of any deformity. NECK: The neck is nontender and supple. RESPIRATORY: Diminished breath sounds at both bases. There is rales at both bases CARDIOVASCULAR: Regular rate and rhythm noted there no murmurs rubs or gallops normal S1 normal S2. GASTROINTESTINAL: The abdomen is distended and diffusely tender. There is no erythema or ecchymosis. MUSCULOSKELETAL/EXTREMITIES: There is no evidence of gross deformity full range of motion is noted in the hips and shoulders. SKIN: Edema was noted bilaterally. NEUROLOGIC: Patient is awake alert and oriented x3 strength is symmetric patellar reflexes are 2+ bilaterally PSYCH: The patient makes good eye contact mostly evaluation. He is very concerned about his pain. He does have some depression over his chronic pain. MEDICAL DECISION MAKING: The patient is a 61-year-old male who presented to the emergency department for an evaluation of abdominal pain. The patient arrived via ambulance. The patient has a history of hepatitis as well as alcohol cirrhosis. She has chronic abdominal pain and was recently in our facility for similar complaints. The patient was discharged home and was feeling better but over the last few days he has been experiencing worsening pain. The patient was treated with IV pain medication in the emergency department. He was reevaluated multiple times. I discussed the patient's laboratory and radiographic studies with him. Given his findings I will discuss his case with the on-call [facility] hospitalist. Triage Nursing notes reviewed. Prior medical records reviewed Vital Signs: reviewed and remarkable for elevated blood pressure. Differential diagnosis: Etiologies such as appendicitis, diverticulitis, obstruction, inflammatory bowel disease, renal colic, PUD, biliary pathology, pancreatitis, mesenteric ischemia, aortic pathology, infections, genitourinary, UTI, perforated viscus, as well as others were entertained. ER treatment provided: See below Diagnostics interpreted by me: ECG: EKG was obtained in the emergency department. My interpretation is normal sinus rhythm at 72 bpm. There is no ectopy. There is no acute ST segment abnormalities noted. This was compared to a tracing from June 12, 2022. No changes were noted. Cardiac Monitoring: An order was placed for continuous cardiac monitoring. The m onitor shows a rate of 75 bpm with sinus rhythm. Laboratory studies: As stated above and show below. Imaging studies: See below. Radiographic imaging was reviewed by myself Consultation(s): I discussed this case with Dr. Prasad who is familiar with the patient's chronic conditions. He asked me to discuss with the patient whether he would feel comfortable going home with help from his sister to manage his pain. The patient was not amenable to this. I discussed this case with Dr. Martinez who was on-call for the [facility] hospitalist group. He will evaluate the patient in the emergency department. Past Med/Surg History Medical History AAA (abdominal aortic aneurysm) per pt, last evaluated 6 mo ago [facility] or [facility]? "around 5 cm" -->says was referred to vascular surgery but no appt as of yet Alcoholic cirrhosis Anxiety Bipolar disorder COPD (chronic obstructive pulmonary disease) no inh at present Depression DM type 2 (diabetes mellitus, type 2) IDDM Dysphagia Encephalopathy Fibromyalgia Gastroparesis GERD (gastroesophageal reflux disease) Hepatitis C dx 1 mo ago --> per pt, referred to [facility] in [place] for treatment but no appt as of yet History of DVT (deep vein thrombosis) "few years ago" LLE -- unk etiology -- per pt, no treatment at time of dx History of heroin abuse quit 2017 History of kidney stones History of migraine HTN (hypertension) Hyperlipidemia Hypertension Nocturnal hypoxia per pt, prescribed home O2 @ 2 LPM qHS and PRN daily in past but unable to obtain as of late r/t financial struggles. admits to using sister's oxygen at night when able. 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 Sleep apnea non compliant with CPAP Surgical History History of colonoscopy History of ear surgery as a child History of esophagogastroduodenoscopy (EGD) History of tonsillectomy History of tooth extraction S/P excisional debridement LLE Family History Other No family history of adverse response to anesthesia No significant medical problems Social History Smoking Status: Current every day smoker Tobacco Type: Cigarettes Cigarettes Per Day: 5; Second Hand Exposure: Yes; Hx Alcohol Use: No Hx Substance Use: Yes Last Used Substance: Unknown Last Used Substance Other:: 2 years ago Substance Use Type Other:: last used meth 2017 Preferred Language: Pakistani Communication Ability: Effective 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 Beliefs That Will Affect Care: None marital status: Single Current Living Situation: Alone Current Living Situation Comment: unknown How many Children do You have: 0 Feels Safe at Home: Yes Assistive Devices: Cane, Oxygen - Continuous and Walker Allergies Allergies Allergy/AdvReac Type Severity Reaction Status Date / Time No Known Allergies Allergy Verified 07/08/22 16:38 Home Meds Home Medications Medication Instructions Recorded Confirmed insulin glargine 100 unit/mL (3 80 unit subcut BID 08/20/20 07/08/22 mL) subcutaneous pen (Lantus Solostar U-100 Insulin) insulin lispro 100 unit/mL 30 unit subcut TIDM 08/20/20 07/08/22 subcutaneous solution (Humalog U-100 Insulin) aspirin 81 mg tablet,delayed 81 mg PO DAILY 11/25/20 07/08/22 release (Chavo Low Dose Aspirin) omeprazole 20 mg capsule,delayed 20 mg PO DAILY 06/01/21 07/08/22 release ipratropium 0.5 mg-albuterol 3 mg 3 ml inhalation QID PRN Shortness 12/27/21 07/08/22 (2.5 mg base)/3 mL nebulization Of Breath Or Wheezing soln buprenorphine HCl 8 mg sublingual 8 mg sublingual TID 03/30/22 07/08/22 tablet gabapentin 800 mg tablet 800 mg PO TID 06/12/22 07/08/22 Previous Rx's Medication Instructions Recorded lactulose 20 gram/30 mL oral 20 g (30 mL) PO TID #60 mL 04/21/22 solution propranolol 10 mg tablet 10 mg PO BID #60 tabs 04/21/22 bumetanide 1 mg tablet 1 mg PO BID #60 tabs 06/23/22 spironolactone 100 mg tablet 100 mg PO DAILY #30 tabs 06/23/22 ciprofloxacin HCl 500 mg tablet 500 mg PO BID #14 tabs 07/06/22 Results & Data (ED) Vital Signs Vital Signs - 24 hr 07/08/22 13:34 07/08/22 13:52 07/08/22 14:17 Temperature 36.9 C Temperature Source Oral Pulse Rate 78 74 75 Pulse Rate [Right Brachial] Pulse Rhythm Regular Regular Pulse Rhythm [Right Brachial] Pulse Strength Normal Pulse Strength [Right Brachial] Respiratory Rate 18 Respiratory Effort / Characteristics Non-Labored Spontaneous Respiratory Depth Normal Respiratory Pattern Regular Blood Pressure 144/79 H Blood Pressure [Right Arm] Blood Pressure Mean 100 Blood Pressure Mean [Right Arm] Blood Pressure Position Lying Blood Pressure Position [Right Arm] Pulse Oximetry 97 98 Oxygen Delivery Method Nasal Cannula Nasal Cannula Oxygen Flow Rate 2 2 Sepsis Recent Fever Within 48 Hours No Sepsis New/Unexplained Change in Mental Status N/A Sepsis Action Taken by Nursing No Action Required 07/08/22 15:36 Temperature Temperature Source Pulse Rate Pulse Rate [Right Brachial] 75 Pulse Rhythm Pulse Rhythm [Right Brachial] Regular Pulse Strength Pulse Strength [Right Brachial] Normal Respiratory Rate 19 Respiratory Effort / Characteristics Non-Labored Spontaneous Respiratory Depth Normal Respiratory Pattern Regular Blood Pressure Blood Pressure [Right Arm] 141/68 H Blood Pressure Mean Blood Pressure Mean [Right Arm] 92 Blood Pressure Position Blood Pressure Position [Right Arm] Lying Pulse Oximetry 93 Oxygen Delivery Method Nasal Cannula Oxygen Flow Rate 2 Sepsis Recent Fever Within 48 Hours Sepsis New/Unexplained Change in Mental Status Sepsis Action Taken by Long Term Medications Current Medication List: was personally reviewed by me Laboratory Data Attestation: I reviewed the patient's lab results. 07/08/22 13:50 07/08/22 13:50 Lab Results 07/08/22 07/08/22 07/08/22 Range/Units 13:50 13:50 13:50 WBC 4.07 L (4.8-10.8) K/ul RBC 3.35 L (4.70-6.10) M/uL Hgb 10.8 L (14.0-18.0) g/dl Hct 31.4 L (42.0-52.0) % MCV 93.7 (80.0-100.0) fL MCH 32.2 (25.0-34.0) pg MCHC 34.4 (32.0-36.0) g/dL RDW Std Deviation 51.3 H (36.4-46.3) fL RDW Coeff of Nabeel 15.0 H (11.5-14.5) % Plt Count 58 L (130-400) K/uL MPV 11.0 (9.4-12.4) fL Immature Gran % (Auto) 0.0 % Neut % (Auto) 65.2 % Lymph % (Auto) 20.1 % [place] % (Auto) 9.3 % Eos % (Auto) 4.7 % Baso % (Auto) 0.7 % Neut # (Auto) 2.65 (1.40-6.50) K/uL Lymph # (Auto) 0.82 L (1.2-3.4) K/uL [place] # (Auto) 0.38 (0.11-0.59) K/uL Eos # (Auto) 0.19 (0-0.50) K/uL Baso # (Auto) 0.03 (0-0.2) K/uL Immature Gran # (Auto) 0.00 L (0.01-0.20) K/uL ESR 35 H (0-20) mm/hr PT 14.0 H (9.0-12.0) Seconds INR 1.3 H (0.9-1.1) APTT 29.9 (21.0-31.0) Seconds PTT Ratio 1.1 Sodium (136-145) mmol/L Potassium (3.5-5.1) mmol/L Chloride (98-107) mmol/L Carbon Dioxide (21-32) mmol/L Anion Gap (3-11) BUN (6-23) mg/dl Creatinine (0.6-1.4) mg/dl Est Cr Clr Drug Dosing ml/min Est GFR ( Amer) ml/min Est GFR (Non-Af Amer) ml/min BUN/Creatinine Ratio (10-20) Glucose (70-99(Fasting)) mg/dl Calcium (8.5-10.1) mg/dl Magnesium (1.7-2.4) mg/dl Total Bilirubin (0.2-1.0) mg/dl Direct Bilirubin (0-0.2) mg/dl AST (13-39) U/L ALT (7-52) U/L Alkaline Phosphatase (34-104) U/L Ammonia (18-72) umol/L Total Creatine Kinase (30-223) U/L Troponin I High Sens (0-20) pg/ml C-Reactive Protein (0-0.5) mg/dl Total Protein (6.0-8.3) gm/dl Albumin (3.4-5.0) gm/dl Globulin (2.5-4.0) gm/dl Albumin/Globulin Ratio (0.9-2) Lipase (11-82) U/L Procalcitonin Urine Color Urine Appearance (Clear) Urine pH (4.5-7.5) Ur Specific Mobile (1.000-1.030) Urine Protein (Negative) Urine Glucose (UA) (Negative) Urine Ketones (Negative) Urine Blood (Negative) Urine Nitrite (Negative) Urine Bilirubin (Negative) Urine Urobilinogen (Negative) Ur Leukocyte Esterase (Negative) Urine WBC (Auto) (0-5) /hpf Urine RBC (Auto) (0-4) /hpf U Hyaline Cast (Auto) (0-5) /lpf U Epithel Cells (Auto) (0-5) /lpf Urine Bacteria (Auto) (Negative) Urine Opiates Screen (Neg) Ur Methadone, Qual (Neg) Urine Barbiturates (Neg) Ur Phencyclidine (PCP) (Neg) U Amphetamin/Meth Scrn (Neg) MDMA (Ecstasy) Screen (Neg) U Benzodiazepines Scrn (Neg) Ur Cocaine Metabolite (Neg) U Marijuana (THC) Screen (Neg) Ethyl Alcohol mg/dL (<10.0) mg/dl SARS-CoV-2, RNA, NAAT (NEGATIVE) 07/08/22 07/08/22 07/08/22 Range/Units 13:50 13:50 13:50 WBC (4.8-10.8) K/ul RBC (4.70-6.10) M/uL Hgb (14.0-18.0) g/dl Hct (42.0-52.0) % MCV (80.0-100.0) fL MCH (25.0-34.0) pg MCHC (32.0-36.0) g/dL RDW Std Deviation (36.4-46.3) fL RDW Coeff of Nabeel (11.5-14.5) % Plt Count (130-400) K/uL MPV (9.4-12.4) fL Immature Gran % (Auto) % Neut % (Auto) % Lymph % (Auto) % [place] % (Auto) % Eos % (Auto) % Baso % (Auto) % Neut # (Auto) (1.40-6.50) K/uL Lymph # (Auto) (1.2-3.4) K/uL [place] # (Auto) (0.11-0.59) K/uL Eos # (Auto) (0-0.50) K/uL Baso # (Auto) (0-0.2) K/uL Immature Gran # (Auto) (0.01-0.20) K/uL ESR (0-20) mm/hr PT (9.0-12.0) Seconds INR (0.9-1.1) APTT (21.0-31.0) Seconds PTT Ratio Sodium 135 L (136-145) mmol/L Potassium 5.1 (3.5-5.1) mmol/L Chloride 103 (98-107) mmol/L Carbon Dioxide 27 (21-32) mmol/L Anion Gap 5 (3-11) BUN 15 (6-23) mg/dl Creatinine 0.83 (0.6-1.4) mg/dl Est Cr Clr Drug Dosing 118.2 ml/min Est GFR ( Amer) 111.6 ml/min Est GFR (Non-Af Amer) 96.3 ml/min BUN/Creatinine Ratio 18.1 (10-20) Glucose 145 H (70-99(Fasting)) mg/dl Calcium 9.3 (8.5-10.1) mg/dl Magnesium 1.6 L (1.7-2.4) mg/dl Total Bilirubin 1.9 H (0.2-1.0) mg/dl Direct Bilirubin 0.6 H (0-0.2) mg/dl AST 45 H (13-39) U/L ALT 15 (7-52) U/L Alkaline Phosphatase 110 H (34-104) U/L Ammonia (18-72) umol/L Total Creatine Kinase 27 L (30-223) U/L Troponin I High Sens 6.7 (0-20) pg/ml C-Reactive Protein 1.76 H (0-0.5) mg/dl Total Protein 6.7 (6.0-8.3) gm/dl Albumin 2.9 L (3.4-5.0) gm/dl Globulin 3.8 (2.5-4.0) gm/dl Albumin/Globulin Ratio 0.8 L (0.9-2) Lipase 9 L (11-82) U/L Procalcitonin Cancelled Urine Color Urine Appearance (Clear) Urine pH (4.5-7.5) Ur Specific Mobile (1.000-1.030) Urine Protein (Negative) Urine Glucose (UA) (Negative) Urine Ketones (Negative) Urine Blood (Negative) Urine Nitrite (Negative) Urine Bilirubin (Negative) Urine Urobilinogen (Negative) Ur Leukocyte Esterase (Negative) Urine WBC (Auto) (0-5) /hpf Urine RBC (Auto) (0-4) /hpf U Hyaline Cast (Auto) (0-5) /lpf U Epithel Cells (Auto) (0-5) /lpf Urine Bacteria (Auto) (Negative) Urine Opiates Screen (Neg) Ur Methadone, Qual (Neg) Urine Barbiturates (Neg) Ur Phencyclidine (PCP) (Neg) U Amphetamin/Meth Scrn (Neg) MDMA (Ecstasy) Screen (Neg) U Benzodiazepines Scrn (Neg) Ur Cocaine Metabolite (Neg) U Marijuana (THC) Screen (Neg) Ethyl Alcohol mg/dL < 10.0 (<10.0) mg/dl SARS-CoV-2, RNA, NAAT (NEGATIVE) 07/08/22 07/08/22 07/08/22 Range/Units 14:00 14:20 14:41 WBC (4.8-10.8) K/ul RBC (4.70-6.10) M/uL Hgb (14.0-18.0) g/dl Hct (42.0-52.0) % MCV (80.0-100.0) fL MCH (25.0-34.0) pg MCHC (32.0-36.0) g/dL RDW Std Deviation (36.4-46.3) fL RDW Coeff of Nabeel (11.5-14.5) % Plt Count (130-400) K/uL MPV (9.4-12.4) fL Immature Gran % (Auto) % Neut % (Auto) % Lymph % (Auto) % [place] % (Auto) % Eos % (Auto) % Baso % (Auto) % Neut # (Auto) (1.40-6.50) K/uL Lymph # (Auto) (1.2-3.4) K/uL [place] # (Auto) (0.11-0.59) K/uL Eos # (Auto) (0-0.50) K/uL Baso # (Auto) (0-0.2) K/uL Immature Gran # (Auto) (0.01-0.20) K/uL ESR (0-20) mm/hr PT (9.0-12.0) Seconds INR (0.9-1.1) APTT (21.0-31.0) Seconds PTT Ratio Sodium (136-145) mmol/L Potassium (3.5-5.1) mmol/L Chloride (98-107) mmol/L Carbon Dioxide (21-32) mmol/L Anion Gap (3-11) BUN (6-23) mg/dl Creatinine (0.6-1.4) mg/dl Est Cr Clr Drug Dosing ml/min Est GFR ( Amer) ml/min Est GFR (Non-Af Amer) ml/min BUN/Creatinine Ratio (10-20) Glucose (70-99(Fasting)) mg/dl Calcium (8.5-10.1) mg/dl Magnesium (1.7-2.4) mg/dl Total Bilirubin (0.2-1.0) mg/dl Direct Bilirubin (0-0.2) mg/dl AST (13-39) U/L ALT (7-52) U/L Alkaline Phosphatase (34-104) U/L Ammonia 48.0 (18-72) umol/L Total Creatine Kinase (30-223) U/L Troponin I High Sens (0-20) pg/ml C-Reactive Protein (0-0.5) mg/dl Total Protein (6.0-8.3) gm/dl Albumin (3.4-5.0) gm/dl Globulin (2.5-4.0) gm/dl Albumin/Globulin Ratio (0.9-2) Lipase (11-82) U/L Procalcitonin 0.22 Urine Color Urine Appearance (Clear) Urine pH (4.5-7.5) Ur Specific Mobile (1.000-1.030) Urine Protein (Negative) Urine Glucose (UA) (Negative) Urine Ketones (Negative) Urine Blood (Negative) Urine Nitrite (Negative) Urine Bilirubin (Negative) Urine Urobilinogen (Negative) Ur Leukocyte Esterase (Negative) Urine WBC (Auto) (0-5) /hpf Urine RBC (Auto) (0-4) /hpf U Hyaline Cast (Auto) (0-5) /lpf U Epithel Cells (Auto) (0-5) /lpf Urine Bacteria (Auto) (Negative) Urine Opiates Screen (Neg) Ur Methadone, Qual (Neg) Urine Barbiturates (Neg) Ur Phencyclidine (PCP) (Neg) U Amphetamin/Meth Scrn (Neg) MDMA (Ecstasy) Screen (Neg) U Benzodiazepines Scrn (Neg) Ur Cocaine Metabolite (Neg) U Marijuana (THC) Screen (Neg) Ethyl Alcohol mg/dL (<10.0) mg/dl SARS-CoV-2, RNA, NAAT NEGATIVE (NEGATIVE) 02/18/23 02/18/23 Range/Units 15:00 15:00 WBC (4.8-10.8) K/ul RBC (4.70-6.10) M/uL Hgb (14.0-18.0) g/dl Hct (42.0-52.0) % MCV (80.0-100.0) fL MCH (25.0-34.0) pg MCHC (32.0-36.0) g/dL RDW Std Deviation (36.4-46.3) fL RDW Coeff of Nabeel (11.5-14.5) % Plt Count (130-400) K/uL MPV (9.4-12.4) fL Immature Gran % (Auto) % Neut % (Auto) % Lymph % (Auto) % [place] % (Auto) % Eos % (Auto) % Baso % (Auto) % Neut # (Auto) (1.40-6.50) K/uL Lymph # (Auto) (1.2-3.4) K/uL [place] # (Auto) (0.11-0.59) K/uL Eos # (Auto) (0-0.50) K/uL Baso # (Auto) (0-0.2) K/uL Immature Gran # (Auto) (0.01-0.20) K/uL ESR (0-20) mm/hr PT (9.0-12.0) Seconds INR (0.9-1.1) APTT (21.0-31.0) Seconds PTT Ratio Sodium (136-145) mmol/L Potassium (3.5-5.1) mmol/L Chloride (98-107) mmol/L Carbon Dioxide (21-32) mmol/L Anion Gap (3-11) BUN (6-23) mg/dl Creatinine (0.6-1.4) mg/dl Est Cr Clr Drug Dosing ml/min Est GFR ( Amer) ml/min Est GFR (Non-Af Amer) ml/min BUN/Creatinine Ratio (10-20) Glucose (70-99(Fasting)) mg/dl Calcium (8.5-10.1) mg/dl Magnesium (1.7-2.4) mg/dl Total Bilirubin (0.2-1.0) mg/dl Direct Bilirubin (0-0.2) mg/dl AST (13-39) U/L ALT (7-52) U/L Alkaline Phosphatase (34-104) U/L Ammonia (18-72) umol/L Total Creatine Kinase (30-223) U/L Troponin I High Sens (0-20) pg/ml C-Reactive Protein (0-0.5) mg/dl Total Protein (6.0-8.3) gm/dl Albumin (3.4-5.0) gm/dl Globulin (2.5-4.0) gm/dl Albumin/Globulin Ratio (0.9-2) Lipase (11-82) U/L Procalcitonin Urine Color Yellow Urine Appearance Clear (Clear) Urine pH 7.0 (4.5-7.5) Ur Specific Mobile 1.017 (1.000-1.030) Urine Protein Trace H (Negative) Urine Glucose (UA) Negative (Negative) Urine Ketones Negative (Negative) Urine Blood Negative (Negative) Urine Nitrite Negative (Negative) Urine Bilirubin Negative (Negative) Urine Urobilinogen Negative (Negative) Ur Leukocyte Esterase Negative (Negative) Urine WBC (Auto) 1-5 (0-5) /hpf Urine RBC (Auto) 0-4 (0-4) /hpf U Hyaline Cast (Auto) 0 (0-5) /lpf U Epithel Cells (Auto) 5-10 H (0-5) /lpf Urine Bacteria (Auto) Negative (Negative) Urine Opiates Screen Pos H (Neg) Ur Methadone, Qual Neg (Neg) Urine Barbiturates Neg (Neg) Ur Phencyclidine (PCP) Neg (Neg) U Amphetamin/Meth Scrn Neg (Neg) MDMA (Ecstasy) Screen Neg (Neg) U Benzodiazepines Scrn Neg (Neg) Ur Cocaine Metabolite Neg (Neg) U Marijuana (THC) Screen Neg (Neg) Ethyl Alcohol mg/dL (<10.0) mg/dl SARS-CoV-2, RNA, NAAT (NEGATIVE) Administered Medications Magnesium Sulfate/Dextrose (Magnesium Sulfate / D5w) 1 gm in 100 mls @ 100 mls/hr IV NOW STA Stop: 07/08/22 17:59 Last Admin: 07/08/22 17:04 Dose: 100 mls/hr Documented By: VAZQUEZ Morphine Sulfate (Morphine Sulfate 4 Mg/Ml 1 Ml Carp\\Vial) 4 mg IV Q30M PRN PRN Reason: Pain Stop: 07/22/22 14:48 Last Admin: 07/08/22 15:34 Dose: 4 mg Documented By: Admin: 07/08/22 14:56 Dose: 4 mg Documented By: VAZQUEZ Discontinued Medications Sodium Chloride (Nss) 500 mls @ 999 mls/hr IV .Q31M REINA Stop: 07/08/22 14:15 Last Infusion: 07/08/22 14:38 Dose: 0 mls/hr Documented By: Admin: 07/08/22 13:51 Dose: 999 mls/hr Documented By: VAZQUEZ Ioversol (Optiray 350 100ml) 87 ml IV ONCE ONE Stop: 07/08/22 15:20 Last Admin: 07/08/22 15:20 Dose: 87 ml Documented By: CT Ondansetron HCl (Ondansetron Inj 2 Mg/Ml 2 Ml Vial) 4 mg IV NOW STA Stop: 07/08/22 14:50 Last Admin: 07/08/22 14:54 Dose: 4 mg Documented By: VAZQUEZ Imaging Data Radiologist's Impression: Chest X-Ray 07/08/22 13:31 XR chest 1V portable HISTORY: 61 years-old Male pain acute chest pain COMPARISON: 06/15/2022 TECHNIQUE: AP view of the chest FINDINGS: Cardiac silhouette is enlarged. Pulmonary vascular congestion with interstitial coarsening, similar to prior. No pneumothorax. Trace pleural effusions with mild bibasilar densities favoring atelectasis. Degenerative changes of the shoulders and spine. IMPRESSION: Cardiomegaly with pulmonary vascular congestion and interstitial coarsening suggestive of pulmonary edema. ACT 112: Negative or not required by law. The above report was generated using voice recognition software. It may contain grammatical, syntax or spelling errors. Electronically signed by: Ramesh Hess M.D. 07/08/2022 2:22 PM Abdomen/Pelvis CT 07/08/22 13:[address] WITH IV CONTRAST CT DOSE: 918.54 mGycm HISTORY: Generalized abdominal pain with ascites. Reported history of prior liver transplant pain, ascited TECHNIQUE: Multiaxial CT images of the abdomen and pelvis were performed following the IV administration of 87 cc of Optiray, A dose lowering technique was utilized adhering to the principles of ALARA. COMPARISON STUDY: May 21, 2022. FINDINGS: Trace left pleural effusion. Mild dependent bibasilar opacities suggestive of atelectasis. No pneumatosis or pneumoperitoneum. The spleen is enlarged, 22 cm. Moderately atrophic pancreas. Unremarkable adrenal glands. Cho lelithiasis with gallbladder distention redemonstrated. Marked heterogeneity of the liver with cirrhosis and evidence of portal venous hypertension. Patent portal vein. Abdominal varicosities with small to moderate abdominal pelvic ascites. 7 mm calcification of the left kidney on image 200 ureteral calculi or hydronephrosis. Urinary bladder wall thickening with partial distention. Prostamegaly. Atherosclerosis of the aorta without aneurysm. Nonspecific inguinal lymphadenopathy measuring up to 1.4 cm on the right, stable from prior. Unchanged distal esophageal wall thickening with periesophageal varices. No bowel obstruction or bowel wall thickening. Mild colonic fecal retention. The visualized appendix appears noninflamed. Mild generalized body wall edema. Moderate L4 superior endplate compression deformity with 2 mm retropulsion, new from prior. 25% superior endplate compression of the L1 vertebral body with 2 mm retropulsion, also new from prior. Mild lumbar levoscoliosis.. Healing subacute mildly impacted anterior rib fractures. IMPRESSION: 1. No bowel obstruction or bowel wall thickening. 2. Cirrhosis with stigmata of portal venous hypertension including splenomegaly, abdominal varicosities with ascites. 3. Cholelithiasis with unchanged gallbladder distention. 4. 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 5. Healing subacute anterior rib fractures. 6. Acute to subacute L1 and L4 compression deformities, new from May 21, 2022. Minimal associated retropulsion without high-grade central canal stenosis. 7. Additional findings as above. ACT 112: Negative or not required by law. The above report was generated using voice recognition software. It may contain grammatical, syntax or spelling errors. Electronically signed by: Ramesh Hess M.D. 07/08/2022 4:15 PM Discharge Plan Visit Data Chief Complaint: Abdominal Pain Stated Complaint: AB PAIN ED Provider: James Saucedo Discharge Problem: Rib fracture, Abdominal ascites, Abdominal pain, Closed compression fracture of L1 vertebra, Pancytopenia, Hypomagnesemia, Acute constipation Patient Disposition: Being Evaluated by Hospitalist Forms Stand Alone Forms: My [facility] Prescriptions Prescriptions: No Action ciprofloxacin HCl 500 mg tablet 500 mg PO BID Qty: 14 0RF Rx Instructions: BEGIN 07/06/22 X 7 DAYS insulin lispro [Humalog U-100 Insulin] 100 unit/mL Solution 30 unit SUBCUT TIDM insulin glargine [Lantus Solostar U-100 Insulin] 100 unit/mL (3 mL) Insulin Pen 80 unit SUBCUT BID omeprazole 20 mg capsule,delayed release(DR/EC) 20 mg PO DAILY Rx Instructions: ordered bid ipratropium-albuterol 0.5 mg-3 mg(2.5 mg base)/3 mL solution for nebulization 3 ml INHALATION QID PRN (Reason: Shortness Of Breath Or Wheezing) gabapentin 800 mg tablet 800 mg PO TID bumetanide 1 mg tablet 1 mg PO BID Qty: 60 1RF spironolactone 100 mg tablet 100 mg PO DAILY Qty: 30 1RF aspirin [Chavo Low Dose Aspirin] 81 mg Tablet,Delayed Release (Dr/Ec) 81 mg PO DAILY buprenorphine HCl 8 mg tablet, sublingual 8 mg SUBLINGUAL TID propranolol 10 mg Tablet 10 mg PO BID Qty: 60 0RF lactulose 20 gram/30 mL Solution 20 g PO TID Qty: 60 0RF Referrals Referrals: Bobby Leslie MD [Primary Care Provider] -
[2022-07-08] MEDS ORDERED: SODIUM CHLORIDE 0.9% 500 ML IV SCH (13:45)
--- NOTE | 2022-07-08 14:24 | XRay Report ---
XR chest 1V portable HISTORY: 61 years-old Male pain acute chest pain COMPARISON: 06/15/2022 TECHNIQUE: AP view of the chest FINDINGS: Cardiac silhouette is enlarged. Pulmonary vascular congestion with interstitial coarsening, similar t o prior. No pneumothorax. Trace pleural effusions with mild bibasilar densities favoring atelectasis. Degenerative changes of the shoulders and spine. IMPRESSION: Cardiomegaly with pulmonary vascular congestion and interstitial coarsening suggestive of pulmonary edema. ACT 112: Negative or not required by law. The above report was generated using voice recognition software. It may contain grammatical, syntax o r spelling errors. Electronically signed by: Ramesh Hess M.D. 07/08/2022 2:22 PM
[2022-07-08 14:35] LABS: INR 1.3 (0.9-1.1); Partial Thromboplastin Ratio 1.1; Partial Thromboplastin Time 29.9 Seconds (21.0-31.0)
[2022-07-08 14:40] LABS: Albumin Globulin Ratio 0.8 (0.9-2); Albumin Level 2.9 gm/dl (3.4-5.0); BUN Creatinine Ratio 18.1 (10-20); Basophils # (auto) 0.03 K/uL (0-0.2); Basophils % (auto) 0.7 %; Bilirubin,Total 1.9 mg/dl (0.2-1.0); C Reactive Protein 1.76 mg/dl (0-0.5); Calcium 9.3 mg/dl (8.5-10.1); Creatinine Clr Calc Pharmacy 118.2 ml/min; Eosinophils # (auto) 0.19 K/uL (0-0.50); Eosinophils % (auto) 4.7 %; Est GFR (African American) 111.6 ml/min; Est GFR (Non-African American) 96.3 ml/min; Globulin 3.8 gm/dl (2.5-4.0); Hematocrit (blood only) 31.4 % (42.0-52.0); Hemoglobin 10.8 g/dl (14.0-18.0); Lymphocytes # (auto) 0.82 K/uL (1.2-3.4); Lymphocytes % (auto) 20.1 %; Magnesium 1.6 mg/dl (1.7-2.4); Mean Corpuscular Hemoglobin 32.2 pg (25.0-34.0); Mean Corpuscular Hgb Conc 34.4 g/dL (32.0-36.0); Mean Corpuscular Volume 93.7 fL (80.0-100.0); Monocytes # (auto) 0.38 K/uL (0.11-0.59); Monocytes % (auto) 9.3 %; Neutrophils # (auto) 2.65 K/uL (1.40-6.50); Neutrophils % (auto) 65.2 %; Platelet Count 58 K/uL (130-400); Potassium 5.1 mmol/L (3.5-5.1); RDW Standard Deviation 51.3 fL (36.4-46.3); Red Blood Count 3.35 M/uL (4.70-6.10); Total Protein 6.7 gm/dl (6.0-8.3); Troponin I High Sensitivity 6.7 pg/ml (0-20); White Blood Count 4.07 K/ul (4.8-10.8)
[2022-07-08] MEDS ORDERED: ONDANSETRON INJ 2 MG/ML 2 ML VIAL IV STA (14:49)
[2022-07-08 14:53] LABS: Bilirubin Direct 0.6 mg/dl (0-0.2)
[2022-07-08] MEDS: MoRPHine SULFATE 4 MG/ML 1 ML CARP\\VIAL IV PRN ×3 (14:56→19:18)
[2022-07-08 15:11] LABS: Appearance Urine Clear (Clear); Bacteria Urine Automated Negative (Negative); Bilirubin Urine Negative (Negative); Blood Urine Negative (Negative); Cast Urine Automated 0 /lpf (0-5); Color Urine Yellow; Glucose Urine UA Negative (Negative); Ketones Urine Negative (Negative); Leukocyte Esterase Urine Negative (Negative); Nitrite Urine Negative (Negative); Protein Urine Trace (Negative); RBC Urine Automated 0-4 /hpf (0-4); Specific Gravity Urine 1.017 (1.000-1.030); Urobilinogen Urine Negative (Negative)
[2022-07-08] MEDS ORDERED: OPTIRAY 350 100ml IV ONE (15:19)
[2022-07-08 15:46] LABS: Amphetamines+Metham, Urine Neg (Neg); Barbiturates, Urine Neg (Neg); Benzodiazepine, Urine Neg (Neg); Cocaine, Urine Neg (Neg); MDMA (Ecstacy), Urine Neg (Neg); Methadone, Urine Neg (Neg); Opiate, Urine Pos (Neg); Phencyclidine, Urine Neg (Neg)
--- NOTE | 2022-07-08 16:16 | CT Scan Report ---
ABDOMEN AND PELVIS CT WITH IV CONTRAST CT DOSE: 918.54 mGycm HISTORY: Generalized abdominal pain with ascites. Reported history of prior liver transplant pain, a scited TECHNIQUE: Multiaxial CT images of the abdomen and pelvis were performed following the IV administrat ion of 87 cc of Optiray, A dose lowering technique was utilized adhering to the principles of ALARA. COMPARISON STUDY: May 21, 2022. FINDINGS: Trace left pleural effusion. Mild dependent bibasilar opacities suggestive of atelectasis. No pneumatosis or pneumoperitoneum. The spleen is enlarged, 22 cm. Moderately atrophic pancreas. Unre markable adrenal glands. Cholelithiasis with gallbladder distention redemonstrated. Marked heterogene ity of the liver with cirrhosis and evidence of portal venous hypertension. Patent portal vein. Abdom inal varicosities with small to moderate abdominal pelvic ascites. 7 mm calcification of the left kid bigg on image 200 ureteral calculi or hydronephrosis. Urinary bladder wall thickening with partial dis tention. Prostamegaly. Atherosclerosis of the aorta without aneurysm. Nonspecific inguinal lymphadeno sepideh measuring up to 1.4 cm on the right, stable from prior. Unchanged distal esophageal wall thickening with periesophageal varices. No bowel obstruction or steven l wall thickening. Mild colonic fecal retention. The visualized appendix appears noninflamed. Mild ge neralized body wall edema. Moderate L4 superior endplate compression deformity with 2 mm retropulsion , new from prior. 25% superior endplate compression of the L1 vertebral body with 2 mm retropulsion, also new from prior. Mild lumbar levoscoliosis.. Healing subacute mildly impacted anterior rib fractu res. IMPRESSION: 1. No bowel obstruction or bowel wall thickening. 2. Cirrhosis with stigmata of portal venous hypertension including splenomegaly, abdominal varicositi es with ascites. 3. Cholelithiasis with unchanged gallbladder distention. 4. 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 5. Healing subacute anterior rib fractures. 6. Acute to subacute L1 and L4 compression deformities, new from May 21, 2022. Minimal associated retropulsion without high-grade central canal stenosis. 7. Additional findings as above. ACT 112: Negative or not required by law. The above report was generated using voice recognition software. It may contain grammatical, syntax o r spelling errors. Electronically signed by: Ramesh Hess M.D. 07/08/2022 4:15 PM
[2022-07-08] MEDS ORDERED: MAGNESIUM SULFATE / D5W 1 GM/100 ML BAG IV STA (17:00)
--- NOTE | 2022-07-08 18:01 | History & Physical Report ---
Date of Service July 08, 2022 Assessment & Plan (1) Abdominal ascites: Plan: Cirrhosis with ascites 2/2 alcohol/HCV Has received several therapeutic paracenteses at previous admission, requiring urostomy bag to collect residual drainage due to leak At last admission started on spironolactone 100, Lasix switched to Bumex for bioavailability Was following up outpatient with [facility] Chronic mild hepatitis Avoid hepatotoxic medications INR 1.3, sodium 135, creatinine on admission 0.83, glucose normal, AST chronically elevated and was 45 on admission, mag 1.6, total bilirubin 1.9, CRP 1.76 CTA/P: 1. No bowel obstruction or bowel wall thickening.2. Cirrhosis with stigmata of portal venous hypertension including splenomegaly, abdominal varicosities with ascites.3. Cholelithiasis with unchanged gallbladder distention. 4. Unchanged distal esophageal wall thickening with paraesophageal varices.5. Healing subacute anterior rib fractures.6. Acute to subacute L1 and L4 compression deformities, new from May 21, 2022. Minimal associated retropulsion without high-grade central canal stenosis.7. Additional findings as above. Question pain from compression fractures Abdominal pain Chronic, but with significant ascites, worsened pain in the last 3 days Paracentesis fluid 07/05 with no growth to date, given significant abdominal pain and rebound tenderness will cover for SBP with Rocephin 2 g daily DDx includes radicular pain with acute compression fractures Compression fxr - Likely 2/2 falling/sitting abruptly on toilet when walker slid out - L1/L4, pt with overlying tenderness - +calcitonin. Continue pain control as otherwise noted Venous stasis dermatitis With chronic edema and anasarca No signs of acute cellulitis Alcohol abuse In remission Continue thiamine/folate Type II DM -SSI, Lantus, CC diet Chronic hep C outpatient follow-up Thrombocytopenia 2/2 cirrhosis - stable, no active bleeding on admission GERD Continue PPI Anxiety Has required Ativan 1 mg IV on past admissions, continue as needed (2) Abdominal pain: (3) Alcohol abuse, in remission: (4) Alcoholic cirrhosis of liver: (5) Chronic hepatitis C with cirrhosis: (6) COPD (chronic obstructive pulmonary disease): (7) HTN (hypertension): (8) Hyperglycemia due to type 2 diabetes mellitus: (9) Nocturnal hypoxia: (10) Sleep apnea: (11) Type 2 diabetes mellitus: (12) Thrombocytopenia: (13) Venous stasis dermatitis: History of Present Illness Primary Care Provider: Bobby Leslie MD Chuck is a 61-year-old male with a history of cirrhosis, chronic hep C, alcohol abuse, past IV drug use, OUD on Suboxone, AAA, DM, GERD, COPD with chronic hypoxia on 2 L, hypertension, ELINA who presents with recurrent abdominal pain similar to prior episodes. He reports that his pain is too poorly controlled to return home. Chuck is seen at the bedside. He reports that after returning home he was doing okay, but had a paracentesis performed at the hospital 3 days ago. He was told this paracentesis had some white blood cells in it and he was placed on ciprofloxacin which he did not take today but did take the last days. He reports today his abdominal pain significantly worsened after he went to sit down on the toilet using his walker which slid out slightly causing him to fall to his butt on the toilet jarring his back. Subsequently has had mid low back pain radiating to his right flank. Has also noticed an increase in pain diffusely in his belly which remains swollen and ascitic. He denies fever, chills, sweats, chest pain, shortness of breath, lightheadedness, dizziness changed in the last 3 days but does note "just the pain is worse, he would be my best friend if you could just make the pain in my belly better so I can get some sleep " no medication changes other than having ciprofloxacin added. Took medications last night. Denies current alcohol use. Social history reviewed. Allergies Allergy/AdvReac Type Severity Reaction Status Date / Time No Known Allergies Allergy Verified 07/08/22 16:38 Home Medications Medication Instructions Recorded Confirmed Type insulin glargine 100 unit/mL (3 80 unit subcut BID 08/20/20 07/08/22 History mL) subcutaneous pen (Lantus Solostar U-100 Insulin) insulin lispro 100 unit/mL 30 unit subcut TIDM 08/20/20 07/08/22 History subcutaneous solution (Humalog U-100 Insulin) aspirin 81 mg tablet,delayed 81 mg PO DAILY 11/25/20 07/08/22 History release (Chavo Low Dose Aspirin) omeprazole 20 mg capsule,delayed 20 mg PO DAILY 06/01/21 07/08/22 History release ipratropium 0.5 mg-albuterol 3 mg 3 ml inhalation QID PRN Shortness 12/27/21 07/08/22 History (2.5 mg base)/3 mL nebulization Of Breath Or Wheezing soln buprenorphine HCl 8 mg sublingual 8 mg sublingual TID 03/30/22 07/08/22 History tablet lactulose 20 gram/30 mL oral 20 g (30 mL) PO TID #60 mL 04/21/22 07/08/22 Rx solution propranolol 10 mg tablet 10 mg PO BID #60 tabs 04/21/22 07/08/22 Rx gabapentin 800 mg tablet 800 mg PO TID 06/12/22 07/08/22 History bumetanide 1 mg tablet 1 mg PO BID #60 tabs 06/23/22 07/08/22 Rx spironolactone 100 mg tablet 100 mg PO DAILY #30 tabs 06/23/22 07/08/22 Rx ciprofloxacin HCl 500 mg tablet 500 mg PO BID #14 tabs 07/06/22 07/08/22 Rx Past Med/Surg History Medical History AAA (abdominal aortic aneurysm) per pt, last evaluated 6 mo ago [place] or [facility]? "around 5 cm" -->says was referred to vascular surgery but no appt as of yet Alcoholic cirrhosis Anxiety Bipolar disorder COPD (chronic obstructive pulmonary disease) no inh at present Depression DM type 2 (diabetes mellitus, type 2) IDDM Dysphagia Encephalopathy Fibromyalgia Gastroparesis GERD (gastroesophageal reflux disease) Hepatitis C dx 1 mo ago --> per pt, referred to [facility] in [place] for treatment but no appt as of yet History of DVT (deep vein thrombosis) "few years ago" LLE -- unk etiology -- per pt, no treatment at time of dx History of heroin abuse quit 2017 History of kidney stones History of migraine HTN (hypertension) Hyperlipidemia Hypertension Nocturnal hypoxia per pt, prescribed home O2 @ 2 LPM qHS and PRN daily in past but unable to obtain as of late r/t financial struggles. admits to using sister's oxygen at night when able. 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 Sleep apnea non compliant with CPAP Surgical History History of colonoscopy History of ear surgery as a child History of esophagogastroduodenoscopy (EGD) History of tonsillectomy History of tooth extraction S/P excisional debridement LLE Family History Other No family history of adverse response to anesthesia No significant medical problems Social History Smoking Status: Current every day smoker Tobacco Type: Cigarettes Cigarettes Per Day: 5; Second Hand Exposure: Yes; Hx Alcohol Use: No Hx Substance Use: Yes Last Used Substance: Unknown Last Used Substance Other:: 2 years ago Substance Use Type Other:: last used meth 2017 Preferred Language: Mexican Communication Ability: Effective 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 NAD. Cooperative. HEENT: Atraumatic, normocephalic. Vision/hearing intact Pulm: CTAB A&P. -wheezes, -rales, -rhonchi. Symmetrical chest rise. No increased work of breathing. No respiratory distress. Cardiac: RRR, -mrg. Radial pulses intact and symmetrical. Abdominal: Distended with fluid wave and ascites. Tender to palpation of right upper quadrant, some rebound tenderness from left lower quadrant. No warmth/erythema. Patient does have pain which urgent at mid lumbar spine TTP which radiates to his right flank. Extremities: Lower extremities with chronic venous stasis, swelling, scale. No superimposed erythema/warmth Results & Data Results & Data ([facility]) Vital Signs (Past 12 Hours) Vital Signs Temp Pulse Pulse Resp BP BP Pulse Ox 07/08/22 17:46 36.9 C 66 19 107/66 95 07/08/22 15:36 75 19 141/68 H 93 07/08/22 14:17 75 07/08/22 13:52 74 98 07/08/22 13:34 36.9 C 78 18 144/79 H 97 O2 Del Method O2 Flow Rate 07/08/22 17:46 Nasal Cannula 2 07/08/22 15:36 Nasal Cannula 2 07/08/22 14:17 07/08/22 13:52 Nasal Cannula 2 07/08/22 13:34 Nasal Cannula 2 PG Care Time/CCT Total # of Minutes Spent Total Time Spent with Patient: Total time spent is greater than 50% in coordination of care (as documented) at patient's floor/unit and/or counseling patient: Coding Level of Care Code 03965 INT INP/OBS CARE 255MIN Diagnoses Abdominal ascites R18.8 Abdominal pain R10.9 Alcohol abuse, in remission F10.11 Alcoholic cirrhosis of liver K70.30 Chronic hepatitis C with cirrhosis B18.2; K74.60 COPD (chronic obstructive pulmonary disease) J44.9 HTN (hypertension) I10 Hyperglycemia due to type 2 diabetes mellitus E11.65; Z79.4 Diabetes mellitus fpc insulin use: with fpc use Nocturnal hypoxia G47.34 Sleep apnea G47.30 Type 2 diabetes mellitus E11.9 Thrombocytopenia D69.6 Venous stasis dermatitis I87.2 (8) Hyperglycemia due to type 2 diabetes mellitus Diabetes mellitus fpc insulin use: with ferry terminal agent use Qualified Code(s): E11.65 - Type 2 diabetes mellitus with hyperglycemia; Z79.4 - exterminator helper (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
[2022-07-08] MEDS: CALCITONIN SALMON NA 200 IU/AC 3.7 ML BTL SCH (19:15)
[2022-07-08] MEDS ORDERED: ALBUT/IPRATROP 3MG/0.5MG NEB 3 ML VIAL INH PRN (20:12)
[2022-07-08] MEDS ORDERED: MAGNESIUM SULFATE / D5W 1 GM/100 ML BAG IV ONE (20:30)
[2022-07-08 21:13] LABS: Acetaminophen 33 ug/ml (10-30)
[2022-07-08 21:16] LABS: Salicylate < 3.0 mg/dl (3.0-30)
[2022-07-08] MEDS: cefTRIAXone SODIUM 2,000 MG in DEXTROSE 5% 50 ML IV SCH (21:30)
[2022-07-08] MEDS: BUMETANIDE 1 MG TAB PO SCH (21:39)
[2022-07-08] MEDS: CALCIUM 600MG + VIT D 400 IU TAB PO SCH (21:39)
[2022-07-08] MEDS: buprenorphine HCL 8 MG SUBL SL SCH (21:39)
[2022-07-08] MEDS: LACTULOSE SYRUP 20 GM/30 ML UDC PO SCH (21:40)
[2022-07-08] MEDS: PROPRANOLOL HCL 10 MG TAB PO SCH (21:40)
[2022-07-08] MEDS: GABAPENTIN 800 MG TAB PO SCH (21:40)
[2022-07-08] MEDS: HYDROmorphone INJ 0.5 MG/0.5 ML SYR IV PRN (22:29)
[2022-07-09] MEDS: HYDROmorphone INJ 0.5 MG/0.5 ML SYR IV PRN ×4 (04:34→22:36)
[2022-07-09 06:36] LABS: Basophils # (auto) 0.02 K/uL (0-0.2); Basophils % (auto) 0.5 %; Eosinophils # (auto) 0.17 K/uL (0-0.50); Eosinophils % (auto) 4.6 %; Hematocrit (blood only) 31.6 % (42.0-52.0); Hemoglobin 10.9 g/dl (14.0-18.0); Immature Granulocytes # (auto) 0.01 K/uL (0.01-0.20); Immature Granulocytes % (auto) 0.3 %; Lymphocytes # (auto) 0.92 K/uL (1.2-3.4); Lymphocytes % (auto) 25.1 %; Mean Corpuscular Hemoglobin 32.3 pg (25.0-34.0); Mean Corpuscular Hgb Conc 34.5 g/dL (32.0-36.0); Mean Corpuscular Volume 93.8 fL (80.0-100.0); Mean Platelet Volume 12.2 fL (9.4-12.4); Monocytes % (auto) 10.9 %; Neutrophils # (auto) 2.14 K/uL (1.40-6.50); Neutrophils % (auto) 58.6 %; Platelet Count 65 K/uL (130-400); RDW Coefficient of Variation 15.1 % (11.5-14.5); Red Blood Count 3.37 M/uL (4.70-6.10); White Blood Count 3.66 K/ul (4.8-10.8)
[2022-07-09 06:49] LABS: Albumin Globulin Ratio 0.8 (0.9-2); Albumin Level 2.7 gm/dl (3.4-5.0); BUN Creatinine Ratio 15.9 (10-20); Bilirubin,Total 1.3 mg/dl (0.2-1.0); C Reactive Protein 1.93 mg/dl (0-0.5); Calcium 8.6 mg/dl (8.5-10.1); Creatinine Clr Calc Pharmacy 117.1 ml/min; Est GFR (African American) 112.2 ml/min; Est GFR (Non-African American) 96.8 ml/min; Globulin 3.6 gm/dl (2.5-4.0); Potassium 4.4 mmol/L (3.5-5.1); Total Protein 6.3 gm/dl (6.0-8.3)
[2022-07-09] MEDS ORDERED: MAGNESIUM SULFATE / D5W 1 GM/100 ML BAG IV ONE (07:43)
[2022-07-09] MEDS: GABAPENTIN 800 MG TAB PO SCH ×3 (08:22→20:36)
[2022-07-09] MEDS: CALCIUM 600MG + VIT D 400 IU TAB PO SCH ×2 (08:22→20:36)
[2022-07-09] MEDS: PANTOprazole 40 MG TAB PO SCH (08:22)
[2022-07-09] MEDS: LACTULOSE SYRUP 20 GM/30 ML UDC PO SCH ×3 (08:22→20:36)
[2022-07-09] MEDS: SPIRONOLACTONE 100 MG TAB PO SCH (08:22)
[2022-07-09] MEDS: CALCITONIN SALMON NA 200 IU/AC 3.7 ML BTL SCH (08:23)
[2022-07-09] MEDS: ASPIRIN 81 MG ECTAB PO SCH (08:23)
[2022-07-09] MEDS: PROPRANOLOL HCL 10 MG TAB PO SCH ×2 (08:23→20:45)
[2022-07-09] MEDS: BUMETANIDE 1 MG TAB PO SCH ×2 (08:23→18:23)
[2022-07-09] MEDS: buprenorphine HCL 8 MG SUBL SL SCH ×3 (08:27→20:42)
--- NOTE | 2022-07-09 11:19 | Electrocardiogram Report ---
Test Reason : Blood Pressure : / mmHG Vent. Rate : 072 BPM Atrial Rate : 072 BPM P-R Int : 154 ms QRS Dur : 084 ms QT Int : 424 ms P-R-T Axes : 034 000 030 degrees QTc Int : 464 ms Normal sinus rhythm Low voltage QRS Borderline ECG When compared with ECG of 12-JUN-2022 15:15, T wave amplitude has increased in Anterior leads Confirmed by Linus Lenz ([id number]) on 07/09/2022 11:18:48 AM Referred By: REFERRED SELF Confirmed By:Linus Lenz
--- NOTE | 2022-07-09 11:29 | Hospitalist Progress Note ---
Date of Service July 09, 2022 Assessment & Plan (1) Abdominal ascites: Plan: Cirrhosis with ascites 2/2 alcohol/HCV and abdominal pain Has received several therapeutic paracenteses at previous admission, requiring urostomy bag to collect residual drainage due to leak Continue Bumex and Spironolactone Was following up outpatient with [facility] Chronic mild hepatitis, avoid hepatotoxic medications CTA/P: 1. No bowel obstruction or bowel wall thickening. 2. Cirrhosis with stigmata of portal venous hypertension including splenomegaly, abdominal varicosities with ascites. 3. Cholelithiasis with unchanged gallbladder distention. 4. 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 5. Healing subacute anterior rib fractures. 6. Acute to subacute L1 and L4 compression deformities, new from May 21, 2022. Minimal associated retro pulsion without high-grade central canal stenosis. 7. Additional findings as above. - Given abd pain and exam findings, he is being covered for SBP with Rocephin 2g IV daily - Obtain ultrasound to quantify amount of acites (only reading small to mod on CT) (2) Closed compression fracture of L1 vertebra: Plan: - Likely 2/2 falling/sitting abruptly on toilet when walker slid out - L1/L4, pt with overlying tenderness - PT/OT eval - Lidocaine patches ordered - Continue Calcitonin, Gabapentin, Subutex, and Dilaudid for breakthrough (3) Alcohol abuse, in remission: Plan: In remission Continue thiamine/folate (4) COPD (chronic obstructive pulmonary disease): Plan: - On chronic home O2 - Nebs PRN - Does not appear to be on ICS or anticholinergic at home according to med rec - Currently w/o exacerbation (5) Type 2 diabetes mellitus: Plan: - Lantus, SSI and CC diet - Accuchecks AC and HS (6) Thrombocytopenia: Plan: - stable, no active bleeding on admission Plan As outlined above. High risk patient receiving IV narcotics. Repeat labs in AM. Lives alone, PT/OT eval ordered, may need rehab. CM to assist in dc planning. Above plan of care to be d/w Dr. Sotelo. Admission and Anticipated Discharge Date Admission Date: July 08, 2022 Subjective Patient "Gustavo" seen on daily rounds this morning. His current complaint is of back pain and is requesting narcotic pain medication. He endorses he last had abdominal fluid drained on , 07/06. He was found to have new L1 and L4 compression fractures on his abdominal CT yesterday. Physical Exam Physical Exam: GENERAL: 61 yo WM who appears chronically ill but nontoxic. NAD. LUNGS: Clear to auscultation bilaterally. CARDIOVASCULAR: Regular rate and rhythm. ABDOMEN: Soft but diffusely tender to palpation, moderately distended w/ positive fluid wave and rebound tenderness. BS normoactive x 4 quad. Results & Data Results & Data ([facility]) Vital Signs (Past 12 Hours) Vital Signs Temp Pulse Resp BP Pulse Ox O2 Del Method O2 Flow Rate 07/09/22 08:24 36.7 C 69 18 112/56 L 94 Nasal Cannula 2 Laboratory Results 07/09/22 06:21 07/09/22 06:21 PG Care Time/CCT Total # of Minutes Spent Total Time Spent with Patient: Total time spent is greater than 50% in coordination of care (as documented) at patient's floor/unit and/or counseling patient: Coding Level of Care Code 52410 SUB INP/OBS CARE 3/50MIN Diagnoses Abdominal ascites R18.8 Closed compression fracture of L1 vertebra S32.010A Encounter type: initial encounter Alcohol abuse, in remission F10.11 COPD (chronic obstructive pulmonary disease) J44.9 Type 2 diabetes mellitus E11.9 Thrombocytopenia D69.6 (2) Closed compression fracture of L1 vertebra Encounter type: initial encounter Qualified Code(s): S32.010A - Wedge compression fracture of first lumbar vertebra, initial encounter for closed fracture
[2022-07-09] MEDS: LIDOCAINE 5% 1 PATCH TD SCH (12:40)
--- NOTE | 2022-07-09 13:19 | Ultrasound Report ---
ULTRASOUND ASCITES CHECK CLINICAL HISTORY: Abdominal ascites. COMPARISON STUDY: Abdominal CT dated 07/08/2022. FINDINGS: Real-time grayscale sonography of all 4 quadrants of the abdomen is performed to assess for abdominal ascites. There is a small volume of abdominopelvic ascites. This is insufficient for parac entesis. Survey images of the liver shows cirrhotic morphology and heterogeneous echotexture. IMPRESSION: Small volume abdominopelvic ascites as above. Electronically signed by: Adriano Sparks M.D. 07/09/2022 1:18 PM
[2022-07-09] MEDS: cefTRIAXone SODIUM 2,000 MG in DEXTROSE 5% 50 ML IV SCH (20:35)
[2022-07-09] MEDS ORDERED: LANTUS PER UNIT CHARGE SQ ONE (21:00)
[2022-07-10] MEDS: HYDROmorphone INJ 0.5 MG/0.5 ML SYR IV PRN ×3 (04:48→18:16)
[2022-07-10 07:59] LABS: Basophils # (auto) 0.03 K/uL (0-0.2); Basophils % (auto) 0.8 %; Eosinophils # (auto) 0.19 K/uL (0-0.50); Eosinophils % (auto) 4.8 %; Hematocrit (blood only) 32.6 % (42.0-52.0); Immature Granulocytes # (auto) 0.01 K/uL (0.01-0.20); Immature Granulocytes % (auto) 0.3 %; Lymphocytes # (auto) 1.09 K/uL (1.2-3.4); Lymphocytes % (auto) 27.7 %; Mean Corpuscular Hemoglobin 31.9 pg (25.0-34.0); Mean Corpuscular Hgb Conc 33.7 g/dL (32.0-36.0); Mean Corpuscular Volume 94.5 fL (80.0-100.0); Mean Platelet Volume 11.4 fL (9.4-12.4); Monocytes # (auto) 0.41 K/uL (0.11-0.59); Monocytes % (auto) 10.4 %; Platelet Count 65 K/uL (130-400); RDW Coefficient of Variation 15.2 % (11.5-14.5); RDW Standard Deviation 52.6 fL (36.4-46.3); Red Blood Count 3.45 M/uL (4.70-6.10); White Blood Count 3.93 K/ul (4.8-10.8)
[2022-07-10 08:09] LABS: Albumin Globulin Ratio 0.7 (0.9-2); Albumin Level 2.6 gm/dl (3.4-5.0); BUN Creatinine Ratio 13.7 (10-20); Bilirubin,Total 1.2 mg/dl (0.2-1.0); Calcium 8.6 mg/dl (8.5-10.1); Creatinine Clr Calc Pharmacy 131.5 ml/min; Est GFR (African American) 117.7 ml/min; Est GFR (Non-African American) 101.5 ml/min; Globulin 3.8 gm/dl (2.5-4.0); Magnesium 1.4 mg/dl (1.7-2.4); Potassium 4.3 mmol/L (3.5-5.1); Total Protein 6.4 gm/dl (6.0-8.3)
[2022-07-10] MEDS: BUMETANIDE 1 MG TAB PO SCH ×2 (09:05→18:15)
[2022-07-10] MEDS: CALCIUM 600MG + VIT D 400 IU TAB PO SCH ×2 (09:05→21:32)
[2022-07-10] MEDS: PROPRANOLOL HCL 10 MG TAB PO SCH ×2 (09:05→21:53)
[2022-07-10] MEDS: PANTOprazole 40 MG TAB PO SCH (09:05)
[2022-07-10] MEDS: SPIRONOLACTONE 100 MG TAB PO SCH (09:05)
[2022-07-10] MEDS: ASPIRIN 81 MG ECTAB PO SCH (09:05)
[2022-07-10] MEDS: LIDOCAINE 5% 1 PATCH TD SCH (09:05)
[2022-07-10] MEDS: GABAPENTIN 800 MG TAB PO SCH ×3 (09:05→21:33)
[2022-07-10] MEDS: CALCITONIN SALMON NA 200 IU/AC 3.7 ML BTL SCH (09:06)
[2022-07-10] MEDS: LACTULOSE SYRUP 20 GM/30 ML UDC PO SCH ×3 (09:10→21:34)
[2022-07-10] MEDS: MAGNESIUM SULFATE / D5W 1 GM/100 ML BAG IV SCH ×2 (09:10→11:58)
[2022-07-10] MEDS: buprenorphine HCL 8 MG SUBL SL SCH ×3 (09:10→21:32)
[2022-07-10] MEDS ORDERED: GLUCAGON FOR INJ 1 MG VIAL SQ PRN (11:16)
[2022-07-10] MEDS ORDERED: GLUCOSE 10 TAB/TUBE PO PRN (11:16)
[2022-07-10] MEDS ORDERED: GLUCOSE 40% GEL 15 GM TUBE PO PRN (11:16)
[2022-07-10] MEDS ORDERED: CARBOHYDRATES FOR HYPOGLYCEMIA PO PRN (11:16)
[2022-07-10] MEDS ORDERED: DEXTROSE 50% 50 ML SYRINGE IV PRN (11:16)
--- NOTE | 2022-07-10 11:21 | Hospitalist Progress Note ---
Date of Service July 10, 2022 Assessment & Plan (1) Abdominal ascites: Plan: Cirrhosis with ascites 2/2 alcohol/HCV and abdominal pain Has received several therapeutic paracenteses at previous admission, requiring urostomy bag to collect residual drainage due to leak Continue Bumex and Spironolactone Was following up outpatient with [facility] Chronic mild hepatitis, avoid hepatotoxic medications CTA/P: 1. No bowel obstruction or bowel wall thickening. 2. Cirrhosis with stigmata of portal venous hypertension including splenomegaly, abdominal varicosities with ascites. 3. Cholelithiasis with unchanged gallbladder distention. 4. 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 5. Healing subacute anterior rib fractures. 6. Acute to subacute L1 and L4 compression deformities, new from May 21, 2022. Minimal associated retro pulsion without high-grade central canal stenosis. 7. Additional findings as above. - Given abd pain and exam findings, he is being covered for SBP with Rocephin 2g IV daily, but fluid from 07/05 shows no growth and no organisms on gram stain - Abd ultrasound completed 07/09 only showed small amount of acites, doesn't need paracentesis - Can likely discontinue the Rocephin (2) Closed compression fracture of L1 vertebra: Plan: - Likely 2/2 falling/sitting abruptly on toilet when walker slid out - L1/L4, pt with overlying tenderness - PT/OT eval pending - Lidocaine patches ordered - Continue Calcitonin, Gabapentin, Subutex, and Dilaudid for breakthrough (3) Alcohol abuse, in remission: Plan: In remission Continue thiamine/folate (4) COPD (chronic obstructive pulmonary disease): Plan: - On chronic home O2 - Nebs PRN - Does not appear to be on ICS or anticholinergic at home according to med rec - Currently w/o exacerbation (5) Type 2 diabetes mellitus: Plan: - Lantus, SSI and CC diet - Accuchecks AC and HS (6) Thrombocytopenia: Plan: - stable, no active bleeding on admission - reviewed repeat cbc, unchanged Plan As outlined above. Magnesium level this AM 1.4, IV replacement ordered. High risk patient receiving IV narcotics. Repeat labs in AM. Lives alone, PT/OT eval ordered, may need rehab. CM to assist in dc planning. Make full admit. Above plan of care to be d/w Dr. Sotelo. Admission and Anticipated Discharge Date Admission Date: July 08, 2022 Subjective Patient "Gustavo" seen on daily rounds this morning. He continues to c/o back pain, essentially unchanged from yesterday. He was found to have new L1 and L4 compression fractures on admit. Pt lives alone. Physical Exam Physical Exam: GENERAL: 61 yo WM who appears chronically ill but nontoxic. NAD. LUNGS: Clear to auscultation bilaterally. CARDIOVASCULAR: Regular rate and rhythm. ABDOMEN: Soft but diffusely tender to palpation, moderately distended w/ positive fluid wave and rebound tenderness. BS normoactive x 4 quad. Results & Data Results & Data ([facility]) Vital Signs (Past 12 Hours) Vital Signs Temp Pulse Resp BP Pulse Ox O2 Del Method O2 Flow Rate 07/10/22 06:55 37.1 C 60 18 131/72 94 Nasal Cannula 1 PG Care Time/CCT Total # of Minutes Spent Total Time Spent with Patient: Total time spent is greater than 50% in coordination of care (as documented) at patient's floor/unit and/or counseling patient: Coding Level of Care Code 65980 SUB INP/OBS CARE 3/50MIN Diagnoses Abdominal ascites R18.8 Closed compression fracture of L1 vertebra S32.010A Encounter type: initial encounter Alcohol abuse, in remission F10.11 COPD (chronic obstructive pulmonary disease) J44.9 Type 2 diabetes mellitus E11.9 Thrombocytopenia D69.6 (2) Closed compression fracture of L1 vertebra Encounter type: initial encounter Qualified Code(s): S32.010A - Wedge compression fracture of first lumbar vertebra, initial encounter for closed fracture
[2022-07-10] MEDS: INSULIN ASPART PER UNIT SC SCH ×3 (13:21→21:24)
[2022-07-10] MEDS: cefTRIAXone SODIUM 2,000 MG in DEXTROSE 5% 50 ML IV SCH (21:33)
[2022-07-10] MEDS: LANTUS PER UNIT CHARGE SQ SCH (21:33)
[2022-07-11] MEDS: HYDROmorphone INJ 0.5 MG/0.5 ML SYR IV PRN ×3 (00:20→12:40)
[2022-07-11] MEDS: INSULIN ASPART PER UNIT SC SCH ×4 (09:46→20:43)
[2022-07-11] MEDS: ASPIRIN 81 MG ECTAB PO SCH (09:48)
[2022-07-11] MEDS: GABAPENTIN 800 MG TAB PO SCH ×3 (09:48→20:06)
[2022-07-11] MEDS: CALCIUM 600MG + VIT D 400 IU TAB PO SCH ×2 (09:49→20:05)
[2022-07-11] MEDS: PROPRANOLOL HCL 10 MG TAB PO SCH ×2 (09:49→20:06)
[2022-07-11] MEDS: LIDOCAINE 5% 1 PATCH TD SCH (09:49)
[2022-07-11] MEDS: CALCITONIN SALMON NA 200 IU/AC 3.7 ML BTL SCH (09:49)
[2022-07-11] MEDS: SPIRONOLACTONE 100 MG TAB PO SCH (09:49)
[2022-07-11] MEDS: PANTOprazole 40 MG TAB PO SCH (09:49)
[2022-07-11] MEDS: LACTULOSE SYRUP 20 GM/30 ML UDC PO SCH ×3 (09:50→20:06)
[2022-07-11] MEDS: MAGNESIUM SULFATE / D5W 1 GM/100 ML BAG IV SCH ×4 (10:08→16:51)
[2022-07-11] MEDS: buprenorphine HCL 8 MG SUBL SL SCH ×3 (10:08→20:05)
[2022-07-11] MEDS: BUMETANIDE 1 MG TAB PO SCH ×2 (10:30→16:51)
--- NOTE | 2022-07-11 13:07 | Hospitalist Progress Note ---
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 No bowel obstruction or bowel wall thickening. 2. Cirrhosis with stigmata of portal venous hypertension including splenomegaly, abdominal varicosities with ascites. 3. Cholelithiasis with unchanged gallbladder distention. 4. 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 5. Healing subacute anterior rib fractures. 6. Acute to subacute L1 and L4 compression deformities, new from May 21, 2022. Minimal associated retropulsion without high-grade central canal stenosis. 7. Additional findings as above. - Given abd pain and exam findings, he is being covered for SBP with Rocephin 2g IV daily, but fluid from 07/05 shows no growth and no organisms on gram stain - Abd ultrasound completed 07/09 only showed small amount of acites, doesn't need paracentesis - Empiric Rocephin stopped 07/11 (3) Hypomagnesemia: Plan: - Has been receiving IV replacement daily but still mag level dropping - This morning, reviewed, level 1.3 - Mag Sulfate 1g IV q2h x 4 bags total has been ordered - Repeat level in AM (4) Alcohol abuse, in remission: Plan: In remission Continue thiamine/folate (5) COPD (chronic obstructive pulmonary disease): Plan: - On chronic home O2 - Nebs PRN - Does not appear to be on ICS or anticholinergic at home according to med rec - Currently w/o exacerbation (6) Type 2 diabetes mellitus: Plan: - Lantus, SSI and CC diet - Accuchecks AC and HS (7) Thrombocytopenia: Plan: - stable, no active bleeding on admission - reviewed repeat cbc, unchanged Plan CM working on dc to rehab. Referrals sent. Repeat mag level in AM. Above plan of care to be d/w Dr. Sotelo. Admission and Anticipated Discharge Date Admission Date: July 10, 2022 Subjective Patient seen on rounds this morning. He is resting in bed, continue to c/o back pain but feels that it is improving. Physical Exam Physical Exam: GENERAL: 61 yo WM who appears chronically ill but nontoxic. NAD. LUNGS: Clear to auscultation bilaterally. CARDIOVASCULAR: Regular rate and rhythm. ABDOMEN: Soft but mild diffuse tenderness to palpation. BS normoactive x 4 quad. Results & Data Results & Data ([facility]) Vital Signs (Past 12 Hours) Vital Signs Temp Pulse Resp BP Pulse Ox O2 Del Method 07/11/22 08:00 36.8 C 65 16 115/65 92 Room Air Laboratory Results Mag= 1.3 PG Care Time/CCT Total # of Minutes Spent Total Time Spent with Patient: Total time spent is greater than 50% in coordination of care (as documented) at patient's floor/unit and/or counseling patient: Coding Level of Care Code 96175 SUB INP/OBS CARE 2/35MIN Diagnoses Closed compression fracture of L1 vertebra S32.010A Encounter type: initial encounter Abdominal ascites R18.8 Hypomagnesemia E83.42 Alcohol abuse, in remission F10.11 COPD (chronic obstructive pulmonary disease) J44.9 Type 2 diabetes mellitus E11.9 Thrombocytopenia D69.6 (1) Closed compression fracture of L1 vertebra Encounter type: initial encounter Qualified Code(s): S32.010A - Wedge compression fracture of first lumbar vertebra, initial encounter for closed fracture
[2022-07-11] MEDS: oxyCODONE HCL IR 5 MG TAB (IMMEDIATE RELEASE) PO PRN ×2 (16:55→20:57)
[2022-07-11] MEDS: LANTUS PER UNIT CHARGE SQ SCH (20:44)
[2022-07-11] MEDS ORDERED: HYDROmorphone INJ 0.5 MG/0.5 ML SYR IV ONE (23:30)
[2022-07-12] MEDS: oxyCODONE HCL IR 5 MG TAB (IMMEDIATE RELEASE) PO PRN ×4 (02:39→19:57)
[2022-07-12] MEDS: HYDROmorphone INJ 0.5 MG/0.5 ML SYR IV PRN ×2 (04:08→10:29)
[2022-07-12 07:47] LABS: Codeine Urine NEGATIVE ng/mL (<50); Hydrocodone Urine NEGATIVE ng/mL (<50); Hydromor Urine NEGATIVE ng/mL (<50); Morphine Urine 6850 ng/mL (<50); Norhydrocodone Conf Ur NEGATIVE ng/mL (<50); Noroxycodone Urine NEGATIVE ng/mL (<50); Oxycodone Urine NEGATIVE ng/mL (<50); Oxymorph Urine NEGATIVE ng/mL (<50)
[2022-07-12] MEDS: GABAPENTIN 800 MG TAB PO SCH ×3 (08:03→19:59)
[2022-07-12] MEDS: ASPIRIN 81 MG ECTAB PO SCH (08:04)
[2022-07-12] MEDS: CALCIUM 600MG + VIT D 400 IU TAB PO SCH ×2 (08:04→19:59)
[2022-07-12] MEDS: PROPRANOLOL HCL 10 MG TAB PO SCH ×2 (08:05→19:58)
[2022-07-12] MEDS: BUMETANIDE 1 MG TAB PO SCH ×2 (08:05→18:02)
[2022-07-12] MEDS: PANTOprazole 40 MG TAB PO SCH ×2 (08:05→20:00)
[2022-07-12] MEDS: SPIRONOLACTONE 100 MG TAB PO SCH (08:05)
[2022-07-12] MEDS: LIDOCAINE 5% 1 PATCH TD SCH (08:06)
[2022-07-12] MEDS: CALCITONIN SALMON NA 200 IU/AC 3.7 ML BTL SCH (08:07)
[2022-07-12] MEDS: LACTULOSE SYRUP 20 GM/30 ML UDC PO SCH ×3 (08:07→19:47)
--- NOTE | 2022-07-12 08:35 | Hospitalist Progress Note ---
Date of Service July 12, 2022 Assessment & Plan (1) Closed compression fracture of L1 vertebra: Plan: Likely 2/2 falling/sitting abruptly on toilet when walker slid out Imaging on admit with acute to subacute L1/L4 compression deformities (new from May 2022) Had held subutex this AM and was getting dilaudid. Does not have naloxone in it and resumed this afternoon. IV dilaudid x 1 dose this morning, additional this afternoon while resuming subutex and can utilize Oxycodone 5mg Q4h prn Consultation for pain management for AM as well (prior abuse hx, as well as etoh) Continue lidocaine patch, calcitonin, gabapentin . Added heat as well as topical voltaren Checking Vit D level given fractures/replacement as needed Attempted to order lumbar/sacral imaging however patient declined -- further conversation tomorrow given could offer brace/orthotics for pain control PT/OT consulted -- home vs rehab -- would benefit from rehab. (2) Abdominal ascites: Plan: Cirrhosis with ascites 2/2 alcohol/HCV and abdominal pain Multiple therapeutic paracenteses at previous admission, requiring urostomy bag to collect residual drainage due to leak Continues on bumex, spironolactone -- planning f/u [facility] but seen inpatient prior admit CTAP on admit w/o bowel obstruction, did note cirrhosis w/ stigmata of portal venous hypertension including splenomegaly, abdominal varicosities with ascites. Cholelithiasis with unchanged gallbladder distention. 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 Healing subacute anterior rib fractures. Acute to subacute L1 and L4 compression deformities, new from May 21, 2022. Minimal associated retropulsion without high-grade central canal stenosis. Additional findings as above. Covered prior for SBP w/ rocephin, fluid from 07/05 w/o growth or organism on GS and abd 07/09 small amt ascites Empiric abx stopped 07/11 Continue Bumex and Spironolactone , propranolol RESUMED RIFAXIMIN 550mg BID -- new rx at d/c if he does not have Monitor weight/I&O Chronic mild hepatitis, avoid hepatotoxic medications Needs outpatient f/u -- coordinate w/ navigator in AM (she states she did arrange for such last admission) RUQ obtained given elevated TB/ALP and RUQ on exam w/ CTAP on admit cholelithiasis w/ unchanged GB distension Also eval portal vein US for PVT causing pain to back however could be from acute fx/GB as well GI consult appreciated, ?need for MRCP for further eval. Lipase not elevated on admit, can repeat if needed/epigastric pain (3) Hypomagnesemia: Plan: Chronic lows, ?2nd to PPI use 1.3, IV replacement ordered and 1.7 on AM labs likely benefit from PO slow mag BID at discharge, will start for this evening (was placed on mag oxide BID -- changed to SLOW MAG) Monitor mag in AM (4) Alcohol abuse, in remission: Plan: In remission -- lapse of drinking in April but reports hasn't since that time Continue thiamine/folate (5) COPD (chronic obstructive pulmonary disease): Plan: On chronic home O2 -- states he does have and uses at night/sleeping and when up/ambulating if having any difficulty Nebs PRN No exacerbation currently (6) Type 2 diabetes mellitus: Plan: Last A1c 9.8 Lantus, SSI and CC diet Accuchecks AC and HS (7) Thrombocytopenia: Plan: Stable, no active bleeding on admission Reviewed repeat cbc, unchanged Updated MELD score (8) Vitamin D deficiency: Plan: checked due to fractures low 16.2 -- replacement to be ordered Plan CM working on dc to rehab. Referrals sent. Check portal vein US to r/o any PVT Pain management consult for AM Spinal xrays if willing to obtain/orthotics consult for AM Admission and Anticipated Discharge Date Admission Date: July 10, 2022 Subjective eval after lunch, having signifcant pain, primarily to his lower back/sacrum. Does have fx lumbar spine (tender in region) but also buttock/sacral pain. Reports he did fall off the toilet prior to admit. Will eval w/ additional xrays. States he does have O2 at home -- uses to sleep and when up/winded. Prior etoh use in april, enrolled in AA/has sponsor. Hx heroin use, on subutex, discussed resuming this and as needed oxycodone. [facility] Denies caleb abdominal pain above his usual, but is slightly tender to palpation RUQ on exam. Does have distended GB on prior imaging. Hx hepatitis C, untreated. He wants his subutex resumed, states does NOT have the naloxone in it like they give people and he has tolerated for baseline control. Also discussed orthotic consult for brace for comfort and addition of heat/topical voltaren. Moving bowels several times daily Physical Exam Physical Exam: General: chronically ill appearing male laying on his left side in bed, reporting discomfort to his lower back, unkept appearing HEENT: head normocephalic, atraumatic, mm slightly dry, +facial hair, poor dentition Resp: poor effort, no obvious w/c, on 1L (chronic 2L when sleeping) CV: RR, no significant m/g, trace pedal edema GI: +BS, slight ascites, +RUQ tenderness to palpation/R flank, no obvious bruising MSK/Neuro: tender to palpation lumbar spine as well as coccyx, no decreased strength unilaterally Psych: Alert/oriented to person/place, time, repeatedly asking about pain control Results & Data Results & Data ([facility]) Vital Signs (Past 12 Hours) Vital Signs Temp Pulse Resp BP Pulse Ox O2 Del Method 07/12/22 07:12 36.7 C 66 16 120/68 96 Room Air Laboratory Results 07/12/22 07/12/22 07/12/22 Range/Units 12:09 09:06 09:06 WBC (4.8-10.8) K/ul RBC (4.70-6.10) M/uL Hgb (14.0-18.0) g/dl Hct (42.0-52.0) % MCV (80.0-100.0) fL MCH (25.0-34.0) pg MCHC (32.0-36.0) g/dL RDW Std Deviation (36.4-46.3) fL RDW Coeff of Nabeel (11.5-14.5) % Plt Count (130-400) K/uL MPV (9.4-12.4) fL PT 14.3 H (9.0-12.0) Seconds INR 1.4 H (0.9-1.1) Sodium (136-145) mmol/L Potassium (3.5-5.1) mmol/L Chloride (98-107) mmol/L Carbon Dioxide (21-32) mmol/L Anion Gap (3-11) BUN (6-23) mg/dl Creatinine (0.6-1.4) mg/dl Est Cr Clr Drug Dosing ml/min Est GFR ( Amer) ml/min Est GFR (Non-Af Amer) ml/min BUN/Creatinine Ratio (10-20) Glucose (70-99(Fasting)) mg/dl POC Glucose 179 H (70-99) mg/dl Calcium (8.5-10.1) mg/dl Magnesium (1.7-2.4) mg/dl Total Bilirubin (0.2-1.0) mg/dl AST (13-39) U/L ALT (7-52) U/L Alkaline Phosphatase (34-104) U/L Ammonia (18-72) umol/L Total Protein (6.0-8.3) gm/dl Albumin (3.4-5.0) gm/dl Globulin (2.5-4.0) gm/dl Albumin/Globulin Ratio (0.9-2) Vitamin B12 (180-914) pg/ml 25-OH Vitamin D Total 16.2 L (30-100) ng/ml Folate (>5.38) ng/ml U Codeine Confrm GC/MS (<50) ng/mL Ur Morphine (GC/MS) (<50) ng/mL Ur Hydrocodone (GC/MS) (<50) ng/mL Ur Norhydrocodone (<50) ng/mL Ur Noroxycodone (<50) ng/mL Urine Oxycodone (GC/MS) (<50) ng/mL U Oxymorphone GC/MS (<50) ng/mL Ur Hydromorphone (GC/MS) (<50) ng/mL Drug Screen Comment 07/12/22 07/12/22 07/12/22 Range/Units 09:06 09:06 08:21 WBC (4.8-10.8) K/ul RBC (4.70-6.10) M/uL Hgb (14.0-18.0) g/dl Hct (42.0-52.0) % MCV (80.0-100.0) fL MCH (25.0-34.0) pg MCHC (32.0-36.0) g/dL RDW Std Deviation (36.4-46.3) fL RDW Coeff of Nabeel (11.5-14.5) % Plt Count (130-400) K/uL MPV (9.4-12.4) fL PT (9.0-12.0) Seconds INR (0.9-1.1) Sodium (136-145) mmol/L Potassium (3.5-5.1) mmol/L Chloride (98-107) mmol/L Carbon Dioxide (21-32) mmol/L Anion Gap (3-11) BUN (6-23) mg/dl Creatinine (0.6-1.4) mg/dl Est Cr Clr Drug Dosing ml/min Est GFR ( Amer) ml/min Est GFR (Non-Af Amer) ml/min BUN/Creatinine Ratio (10-20) Glucose (70-99(Fasting)) mg/dl POC Glucose 152 H (70-99) mg/dl Calcium (8.5-10.1) mg/dl Magnesium (1.7-2.4) mg/dl Total Bilirubin (0.2-1.0) mg/dl AST (13-39) U/L ALT (7-52) U/L Alkaline Phosphatase (34-104) U/L Ammonia 40.0 (18-72) umol/L Total Protein (6.0-8.3) gm/dl Albumin (3.4-5.0) gm/dl Globulin (2.5-4.0) gm/dl Albumin/Globulin Ratio (0.9-2) Vitamin B12 993 H (180-914) pg/ml 25-OH Vitamin D Total (30-100) ng/ml Folate > 22.30 (>5.38) ng/ml U Codeine Confrm GC/MS (<50) ng/mL Ur Morphine (GC/MS) (<50) ng/mL Ur Hydrocodone (GC/MS) (<50) ng/mL Ur Norhydrocodone (<50) ng/mL Ur Noroxycodone (<50) ng/mL Urine Oxycodone (GC/MS) (<50) ng/mL U Oxymorphone GC/MS (<50) ng/mL Ur Hydromorphone (GC/MS) (<50) ng/mL Drug Screen Comment 0207/12/22 07/12/22 Range/Units 07:20 07:20 07:20 WBC 3.64 L (4.8-10.8) K/ul RBC 3.69 L (4.70-6.10) M/uL Hgb 12.0 L (14.0-18.0) g/dl Hct 34.0 L (42.0-52.0) % MCV 92.1 (80.0-100.0) fL MCH 32.5 (25.0-34.0) pg MCHC 35.3 (32.0-36.0) g/dL RDW Std Deviation 50.3 H (36.4-46.3) fL RDW Coeff of Nabeel 14.8 H (11.5-14.5) % Plt Count 67 L (130-400) K/uL MPV 11.3 (9.4-12.4) fL PT (9.0-12.0) Seconds INR (0.9-1.1) Sodium 134 L (136-145) mmol/L Potassium 4.0 (3.5-5.1) mmol/L Chloride 101 (98-107) mmol/L Carbon Dioxide 28 (21-32) mmol/L Anion Gap 5 (3-11) BUN 11 (6-23) mg/dl Creatinine 0.71 (0.6-1.4) mg/dl Est Cr Clr Drug Dosing 129.3 ml/min Est GFR ( Amer) 119.0 ml/min Est GFR (Non-Af Amer) 102.7 ml/min BUN/Creatinine Ratio 15.5 (10-20) Glucose 146 H (70-99(Fasting)) mg/dl POC Glucose (70-99) mg/dl Calcium 9.0 (8.5-10.1) mg/dl Magnesium 1.7 (1.7-2.4) mg/dl Total Bilirubin 1.7 H (0.2-1.0) mg/dl AST 48 H (13-39) U/L ALT 14 (7-52) U/L Alkaline Phosphatase 110 H (34-104) U/L Ammonia (18-72) umol/L Total Protein 6.8 (6.0-8.3) gm/dl Albumin 2.8 L (3.4-5.0) gm/dl Globulin 4.0 (2.5-4.0) gm/dl Albumin/Globulin Ratio 0.7 L (0.9-2) Vitamin B12 (180-914) pg/ml 25-OH Vitamin D Total (30-100) ng/ml Folate (>5.38) ng/ml U Codeine Confrm GC/MS (<50) ng/mL Ur Morphine (GC/MS) (<50) ng/mL Ur Hydrocodone (GC/MS) (<50) ng/mL Ur Norhydrocodone (<50) ng/mL Ur Noroxycodone (<50) ng/mL Urine Oxycodone (GC/MS) (<50) ng/mL U Oxymorphone GC/MS (<50) ng/mL Ur Hydromorphone (GC/MS) (<50) ng/mL Drug Screen Comment 07/11/22 07/11/22 07/08/22 Range/Units 20:27 17:08 15:00 WBC (4.8-10.8) K/ul RBC (4.70-6.10) M/uL Hgb (14.0-18.0) g/dl Hct (42.0-52.0) % MCV (80.0-100.0) fL MCH (25.0-34.0) pg MCHC (32.0-36.0) g/dL RDW Std Deviation (36.4-46.3) fL RDW Coeff of Nabeel (11.5-14.5) % Plt Count (130-400) K/uL MPV (9.4-12.4) fL PT (9.0-12.0) Seconds INR (0.9-1.1) Sodium (136-145) mmol/L Potassium (3.5-5.1) mmol/L Chloride (98-107) mmol/L Carbon Dioxide (21-32) mmol/L Anion Gap (3-11) BUN (6-23) mg/dl Creatinine (0.6-1.4) mg/dl Est Cr Clr Drug Dosing ml/min Est GFR ( Amer) ml/min Est GFR (Non-Af Amer) ml/min BUN/Creatinine Ratio (10-20) Glucose (70-99(Fasting)) mg/dl POC Glucose 163 H 159 H (70-99) mg/dl Calcium (8.5-10.1) mg/dl Magnesium (1.7-2.4) mg/dl Total Bilirubin (0.2-1.0) mg/dl AST (13-39) U/L ALT (7-52) U/L Alkaline Phosphatase (34-104) U/L Ammonia (18-72) umol/L Total Protein (6.0-8.3) gm/dl Albumin (3.4-5.0) gm/dl Globulin (2.5-4.0) gm/dl Albumin/Globulin Ratio (0.9-2) Vitamin B12 (180-914) pg/ml 25-OH Vitamin D Total (30-100) ng/ml Folate (>5.38) ng/ml U Codeine Confrm GC/MS NEGATIVE (<50) ng/mL Ur Morphine (GC/MS) 6850 H (<50) ng/mL Ur Hydrocodone (GC/MS) NEGATIVE (<50) ng/mL Ur Norhydrocodone NEGATIVE (<50) ng/mL Ur Noroxycodone NEGATIVE (<50) ng/mL Urine Oxycodone (GC/MS) NEGATIVE (<50) ng/mL U Oxymorphone GC/MS NEGATIVE (<50) ng/mL Ur Hydromorphone (GC/MS) NEGATIVE (<50) ng/mL Drug Screen Comment SEE NOTE Diagnostic Findings Gallbladder Ultrasound 07/12/22 09:37 US gallbladder CLINICAL HISTORY: Right back pain, eval madeleine COMPARISON STUDY: CT of the abdomen and pelvis July 08, 2022. FINDINGS: The liver is cirrhotic. No hepatic lesions are identified by sonography. There is no biliary ductal dilatation. A small amount of perihepatic ascites is noted. The pancreas is obscured. The gallbladder is distended. This is unchanged since prior CT. Multiple gallstones within the gallbladder are noted. Wall thickness is at upper limits of normal. No sonographic King sign was elicited. There is no right hydronephrosis. IMPRESSION: 1. Cholelithiasis and gallbladder distention, similar to prior CT. However, no sonographic King sign. No convincing evidence for acute cholecystitis. If indicated, a hepatobiliary scan could be obtained. 2. Cirrhosis. Small amount of perihepatic ascites. ACT 112: Negative or not required by law. Electronically signed by: Remi Hernandez M.D. 07/12/2022 12:32 PM PG Care Time/CCT Total # of Minutes Spent Total Time Spent with Patient: Total time spent is greater than 50% in coordination of care (as documented) at patient's floor/unit and/or counseling patient: Coding Level of Care Code 00405 SUB INP/OBS CARE 3/50MIN Diagnoses Closed compression fracture of L1 vertebra S32.010A Encounter type: initial encounter Abdominal ascites R18.8 Hypomagnesemia E83.42 Alcohol abuse, in remission F10.11 COPD (chronic obstructive pulmonary disease) J44.9 Type 2 diabetes mellitus E11.9 Thrombocytopenia D69.6 Vitamin D deficiency E55.9 (1) Closed compression fracture of L1 vertebra Encounter type: initial encounter Qualified Code(s): S32.010A - Wedge compression fracture of first lumbar vertebra, initial encounter for closed fracture
[2022-07-12 08:58] LABS: Mean Corpuscular Hemoglobin 32.5 pg (25.0-34.0); Mean Corpuscular Hgb Conc 35.3 g/dL (32.0-36.0); Mean Corpuscular Volume 92.1 fL (80.0-100.0); Mean Platelet Volume 11.3 fL (9.4-12.4); Platelet Count 67 K/uL (130-400); RDW Coefficient of Variation 14.8 % (11.5-14.5); RDW Standard Deviation 50.3 fL (36.4-46.3); Red Blood Count 3.69 M/uL (4.70-6.10); White Blood Count 3.64 K/ul (4.8-10.8)
[2022-07-12] MEDS ORDERED: MAGNESIUM OXIDE 400 MG TAB PO SCH (09:00)
[2022-07-12 09:13] LABS: Albumin Globulin Ratio 0.7 (0.9-2); Albumin Level 2.8 gm/dl (3.4-5.0); BUN Creatinine Ratio 15.5 (10-20); Bilirubin,Total 1.7 mg/dl (0.2-1.0); Creatinine Clr Calc Pharmacy 129.3 ml/min; Est GFR (Non-African American) 102.7 ml/min; Total Protein 6.8 gm/dl (6.0-8.3)
[2022-07-12 10:05] LABS: INR 1.4 (0.9-1.1); Prothrombin Time 14.3 Seconds (9.0-12.0)
[2022-07-12 10:20] LABS: Vitamin B12 993 pg/ml (180-914)
[2022-07-12] MEDS: buprenorphine HCL 8 MG SUBL SL SCH ×3 (10:30→19:45)
[2022-07-12] MEDS: INSULIN ASPART PER UNIT SC SCH ×4 (10:30→21:47)
--- NOTE | 2022-07-12 12:34 | Ultrasound Report ---
US gallbladder CLINICAL HISTORY: Right back pain, eval madeleine COMPARISON STUDY: CT of the abdomen and pelvis July 08, 2022. FINDINGS: The liver is cirrhotic. No hepatic lesions are identified by sonography. There is no biliar y ductal dilatation. A small amount of perihepatic ascites is noted. The pancreas is obscured. The ga llbladder is distended. This is unchanged since prior CT. Multiple gallstones within the gallbladder are noted. Wall thickness is at upper limits of normal. No sonographic King sign was elicited. Ther e is no right hydronephrosis. IMPRESSION: 1. Cholelithiasis and gallbladder distention, similar to prior CT. However, no sonographic King sig n. No convincing evidence for acute cholecystitis. If indicated, a hepatobiliary scan could be obtain ed. 2. Cirrhosis. Small amount of perihepatic ascites. ACT 112: Negative or not required by law. Electronically signed by: Remi Hernandez M.D. 07/12/2022 12:32 PM
[2022-07-12] MEDS: rifAXIMin 550 MG TABLET PO SCH ×2 (12:56→19:58)
[2022-07-12] MEDS ORDERED: HYDROmorphone INJ 0.5 MG/0.5 ML SYR IV ONE (14:00)
[2022-07-12] MEDS: DICLOFENAC SOD 1% GEL 100 GM TUBE EXT SCH ×3 (14:14→19:53)
[2022-07-12] MEDS: MAGNESIUM CHLORIDE W/CALCIUM 64MG DELAYED REL TAB PO SCH (20:01)
[2022-07-12] MEDS: LANTUS PER UNIT CHARGE SQ SCH (21:46)
[2022-07-13] MEDS: oxyCODONE HCL IR 5 MG TAB (IMMEDIATE RELEASE) PO PRN ×4 (02:35→21:17)
[2022-07-13 07:23] LABS: Albumin Globulin Ratio 0.7 (0.9-2); Albumin Level 2.6 gm/dl (3.4-5.0); Bilirubin,Total 1.3 mg/dl (0.2-1.0); Calcium 8.9 mg/dl (8.5-10.1); Creatinine Clr Calc Pharmacy 72.5 ml/min; Est GFR (African American) 69.9 ml/min; Est GFR (Non-African American) 60.3 ml/min; Globulin 3.6 gm/dl (2.5-4.0); Magnesium 1.6 mg/dl (1.7-2.4); Potassium 3.7 mmol/L (3.5-5.1); Total Protein 6.2 gm/dl (6.0-8.3)
[2022-07-13 07:37] LABS: Thyroid Stimulating Hormone 6.354 uIu/ml (0.300-4.500)
[2022-07-13 07:53] LABS: Lyme Ab IgM w/WB Rflx Negative (Negative)
[2022-07-13 08:00] LABS: Lyme Ab IgG w/WB Rflx Positive (Negative)
[2022-07-13 08:12] LABS: T4 Free Thyroxine 1.34 ng/dl (0.61-1.60)
--- NOTE | 2022-07-13 08:22 | Hospitalist Progress Note ---
Date of Service July 13, 2022 Assessment & Plan (1) Closed compression fracture of L1 vertebra: Plan: Likely 2/2 falling/sitting abruptly on toilet when walker slid out Imaging on admit with acute to subacute L1/L4 compression deformities (new from May 2022) Additional imaging w/o fx to sacrum -- does have some SI tenderness, not candidate for injections Continue pain control: Continue Subutex, lidocaine patches, heating pad, reports improvement w/ use of topical voltaren added 07/12 as well Continued encouragement for patient that will not be pain free but wanting to be manageable, wanting to limit IV pain medication, jack given prior abuse heroin hx Vit D low -- replacement ordered, continue at d/c Pain management consulted: to continue Subutex, oxycodone prn (not to increase dose), Dilaudid for breakthrough 0.25mg (discussed w/ patient to limit). Orthotics consulted for TLSO brace for additional pain control PT/OT consulted -- CM following, planning for rehab . [facility] wanted updated therapy notes, hopefully to be done today *Lyme checked -- reported dog with lots of ticks, bites to head in past but no rashes or ever treated. 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 but seen inpatient prior admit CTAP on admit w/o bowel obstruction, did note cirrhosis w/ stigmata of portal venous hypertension including splenomegaly, abdominal varicosities with ascites. Cholelithiasis with unchanged gallbladder distention. 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 Healing subacute anterior rib fractures. Acute to subacute L1 and L4 compression deformities, new from May 21, 2022. Minimal associated retropulsion without high-grade central canal stenosis. Additional findings as above. Covered prior for SBP w/ rocephin, fluid from 07/05 w/o growth or organism on GS and abd 07/09 small amt ascites Empiric abx stopped 07/11 Continue Bumex and Spironolactone , propranolol RESUMED RIFAXIMIN 550mg BID 07/12-- new rx at d/c if he does not have at home RUQ obtained given elevated TB/ALP and RUQ on exam w/ CTAP on admit cholelithiasis w/ unchanged GB distension. Lipase wnl on admit. Prior admit, normal HIDA. GI consulted -- appreciate recs noted patent portal vein, low likelihood of PVT causing pain issues Hepatitis panel LFTs stable but will check anaplasmosis smear given LFTs/tick bites, equivocal Lyme screening Monitor weight/I&O Chronic mild hepatitis, avoid hepatotoxic medications Needs outpatient f/u -- coordinate w/ navigator in AM (she states she did arrange for such last admission) Additional 1mg bumex for 07/13 at lunch, monitor weights in AM (3) Hypomagnesemia: Plan: Chronic lows, ?2nd to PPI use 1.6 on AM labs, 2gm IV ordered. Also changed from mag oxide BID to SLOW mag. Started Vit D supplementation as well Monitor on repeat (4) Alcohol abuse, in remission: Plan: In remission -- lapse of drinking in April but reports hasn't since that time Continue thiamine, added today (5) COPD (chronic obstructive pulmonary disease): Plan: On chronic home O2 -- states he does have and uses at night/sleeping and when up/ambulating if having any difficulty Nebs PRN No exacerbation currently (6) Type 2 diabetes mellitus: Plan: Last A1c 9.8 Lantus, SSI and CC diet Accuchecks AC and HS (7) Thrombocytopenia: Plan: Stable, no active bleeding on admission Reviewed repeat cbc, stable (8) Vitamin D deficiency: Plan: checked due to fractures low 16.2 -- replacement to be ordered and would continue at d/c. 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 Chart reviewed. Case discussed with MARCELA Graves. I agree with assessment and plan Subjective eval this morning, up in chair currently. Voltaren gel helpful for pain along with heating pad, currently in place. pain controlled with ordered medications but he states he was seen by pain management this morning and if needed will use dilaudid. Discussed oxycodone las ting longer but if uncontrolled can use. Moving bowels, appetite reportedly improved. Discussed prior dx for Lyme ever -- he denied. Does sleep w/ dog and reports pulling off hundreds/thousands of ticks and actually thought he had multiple scabs/lesions on head couple months ago but they were actually ticks. Never treated for Lyme. Discussed starting tx to see if any improvement in symptoms. Continues to search for bed for rehab. Orthotics also consulted for brace. No fever/chills. Breathing stable but diminished in the bases, checking CXR to eval pulm congestion/may need additional dose of bumex. Physical Exam Physical Exam: General: chronically ill appearing male sitting up in chair eating breakfast, pain appears stable, NAD HEENT: head normocephalic, atraumatic, mm improved, +facial hair, ponytail, poor dentition Resp: improved effort, no obvious w/c, on room air CV: RR, no significant m/g, trace pedal edema GI: +BS, slight ascites, +RUQ tenderness to palpation/R flank, no obvious bruising MSK/Neuro: tender to palpation lumbar spine as well as coccyx, no decreased strength unilaterally, heating bad to low back currently Psych: Alert/oriented to person/place, cooperative with care Results & Data Results & Data ([facility]) Vital Signs (Past 12 Hours) Vital Signs Temp Pulse Pulse Resp BP BP Pulse Ox 07/13/22 07:35 36.7 C 64 18 101/55 L 92 07/12/22 21:00 36.7 C 66 18 83/43 L 95 07/12/22 21:49 62 109/57 L O2 Del Method O2 Flow Rate 07/13/22 07:35 Room Air 07/12/22 21:00 Nasal Cannula 1 07/12/22 21:49 Laboratory Results 07/13/22 07/13/22 07/13/22 Range/Units 11:58 08:10 05:58 WBC RBC Hgb Hct MCV MCH MCHC Plt Count Sodium (136-145) mmol/L Potassium (3.5-5.1) mmol/L Chloride (98-107) mmol/L Carbon Dioxide (21-32) mmol/L Anion Gap (3-11) BUN (6-23) mg/dl Creatinine (0.6-1.4) mg/dl Est Cr Clr Drug Dosing ml/min Est GFR ( Amer) ml/min Est GFR (Non-Af Amer) ml/min BUN/Creatinine Ratio (10-20) Glucose (70-99(Fasting)) mg/dl POC Glucose 200 H 128 H (70-99) mg/dl Calcium (8.5-10.1) mg/dl Magnesium (1.7-2.4) mg/dl Total Bilirubin (0.2-1.0) mg/dl AST (13-39) U/L ALT (7-52) U/L Alkaline Phosphatase (34-104) U/L Total Protein (6.0-8.3) gm/dl Albumin (3.4-5.0) gm/dl Globulin (2.5-4.0) gm/dl Albumin/Globulin Ratio (0.9-2) Vitamin B1 25-OH Vitamin D Total (30-100) ng/ml TSH (0.300-4.500) uIu/ml Free T4 (0.61-1.60) ng/dl Free T3 3.34 (2.3-4.2) pg/ml PTH Intact (12.0-88.0) pg/ml Lyme Disease IgG Ab (Negative) Lyme IgG (Western Blot) Lyme IgG 18 kDa Band Lyme IgG 23 kDa Band Lyme IgG 28 kDa Band Lyme IgG 30 kDa Band Lyme IgG 39 kDa Band Lyme IgG 41 kDa Band Lyme IgG 45 kDa Band Lyme IgG 58 kDa Band Lyme IgG 66 kDa Band Lyme IgG 93 kDa Band Lyme IgM Ab (WB) Lyme Disease IgM Ab (Negative) Lyme IgM 23 kDa Band Lyme IgM 39 kDa Band Lyme IgM 41 kDa Band Hepatitis A IgM Ab Hep Bs Antigen Hep Bs Ag Confirmation Hep B Core IgM Ab Hepatitis C Ab (EIA) Hep C Ab Signal/Cutoff 07/13/22 07/13/22 07/13/22 Range/Units 05:58 05:58 05:58 WBC RBC Hgb Hct MCV MCH MCHC Plt Count Sodium (136-145) mmol/L Potassium (3.5-5.1) mmol/L Chloride (98-107) mmol/L Carbon Dioxide (21-32) mmol/L Anion Gap (3-11) BUN (6-23) mg/dl Creatinine (0.6-1.4) mg/dl Est Cr Clr Drug Dosing ml/min Est GFR ( Amer) ml/min Est GFR (Non-Af Amer) ml/min BUN/Creatinine Ratio (10-20) Glucose (70-99(Fasting)) mg/dl POC Glucose (70-99) mg/dl Calcium (8.5-10.1) mg/dl Magnesium (1.7-2.4) mg/dl Total Bilirubin (0.2-1.0) mg/dl AST (13-39) U/L ALT (7-52) U/L Alkaline Phosphatase (34-104) U/L Total Protein (6.0-8.3) gm/dl Albumin (3.4-5.0) gm/dl Globulin (2.5-4.0) gm/dl Albumin/Globulin Ratio (0.9-2) Vitamin B1 25-OH Vitamin D Total (30-100) ng/ml TSH (0.300-4.500) uIu/ml Free T4 (0.61-1.60) ng/dl Free T3 (2.3-4.2) pg/ml PTH Intact 36.6 (12.0-88.0) pg/ml Lyme Disease IgG Ab Positive A (Negative) Lyme IgG (Western Blot) Pending Lyme IgG 18 kDa Band Pending Lyme IgG 23 kDa Band Pending Lyme IgG 28 kDa Band Pending Lyme IgG 30 kDa Band Pending Lyme IgG 39 kDa Band Pending Lyme IgG 41 kDa Band Pending Lyme IgG 45 kDa Band Pending Lyme IgG 58 kDa Band Pending Lyme IgG 66 kDa Band Pending Lyme IgG 93 kDa Band Pending Lyme IgM Ab (WB) Pending Lyme Disease IgM Ab Negative (Negative) Lyme IgM 23 kDa Band Pending Lyme IgM 39 kDa Band Pending Lyme IgM 41 kDa Band Pending Hepatitis A IgM Ab Hep Bs Antigen Hep Bs Ag Confirmation Hep B Core IgM Ab Hepatitis C Ab (EIA) Hep C Ab Signal/Cutoff 07/13/22 07/13/22 07/13/22 Range/Units 05:58 05:58 05:58 WBC RBC Hgb Hct MCV MCH MCHC Plt Count Sodium 132 L (136-145) mmol/L Potassium 3.7 (3.5-5.1) mmol/L Chloride 99 (98-107) mmol/L Carbon Dioxide 28 (21-32) mmol/L Anion Gap 5 (3-11) BUN 18 (6-23) mg/dl Creatinine 1.29 D (0.6-1.4) mg/dl Est Cr Clr Drug Dosing 72.5 ml/min Est GFR ( Amer) 69.9 ml/min Est GFR (Non-Af Amer) 60.3 ml/min BUN/Creatinine Ratio 14.0 (10-20) Glucose 154 H (70-99(Fasting)) mg/dl POC Glucose (70-99) mg/dl Calcium 8.9 (8.5-10.1) mg/dl Magnesium 1.6 L (1.7-2.4) mg/dl Total Bilirubin 1.3 H (0.2-1.0) mg/dl AST 43 H (13-39) U/L ALT 13 (7-52) U/L Alkaline Phosphatase 109 H (34-104) U/L Total Protein 6.2 (6.0-8.3) gm/dl Albumin 2.6 L (3.4-5.0) gm/dl Globulin 3.6 (2.5-4.0) gm/dl Albumin/Globulin Ratio 0.7 L (0.9-2) Vitamin B1 25-OH Vitamin D Total (30-100) ng/ml TSH 6.354 H (0.300-4.500) uIu/ml Free T4 1.34 (0.61-1.60) ng/dl Free T3 (2.3-4.2) pg/ml PTH Intact (12.0-88.0) pg/ml Lyme Disease IgG Ab (Negative) Lyme IgG (Western Blot) Lyme IgG 18 kDa Band Lyme IgG 23 kDa Band Lyme IgG 28 kDa Band Lyme IgG 30 kDa Band Lyme IgG 39 kDa Band Lyme IgG 41 kDa Band Lyme IgG 45 kDa Band Lyme IgG 58 kDa Band Lyme IgG 66 kDa Band Lyme IgG 93 kDa Band Lyme IgM Ab (WB) Lyme Disease IgM Ab (Negative) Lyme IgM 23 kDa Band Lyme IgM 39 kDa Band Lyme IgM 41 kDa Band Hepatitis A IgM Ab Pending Hep Bs Antigen Pending Hep Bs Ag Confirmation Pending Hep B Core IgM Ab Pending Hepatitis C Ab (EIA) Pending Hep C Ab Signal/Cutoff Pending 07/13/22 07/13/22 07/12/22 Range/Units 05:58 05:58 20:41 WBC Pending RBC Pending Hgb Pending Hct Pending MCV Pending MCH Pending MCHC Pending Plt Count Pending Sodium (136-145) mmol/L Potassium (3.5-5.1) mmol/L Chloride (98-107) mmol/L Carbon Dioxide (21-32) mmol/L Anion Gap (3-11) BUN (6-23) mg/dl Creatinine (0.6-1.4) mg/dl Est Cr Clr Drug Dosing ml/min Est GFR ( Amer) ml/min Est GFR (Non-Af Amer) ml/min BUN/Creatinine Ratio (10-20) Glucose (70-99(Fasting)) mg/dl POC Glucose 167 H (70-99) mg/dl Calcium (8.5-10.1) mg/dl Magnesium (1.7-2.4) mg/dl Total Bilirubin (0.2-1.0) mg/dl AST (13-39) U/L ALT (7-52) U/L Alkaline Phosphatase (34-104) U/L Total Protein (6.0-8.3) gm/dl Albumin (3.4-5.0) gm/dl Globulin (2.5-4.0) gm/dl Albumin/Globulin Ratio (0.9-2) Vitamin B1 Pending 25-OH Vitamin D Total (30-100) ng/ml TSH (0.300-4.500) uIu/ml Free T4 (0.61-1.60) ng/dl Free T3 (2.3-4.2) pg/ml PTH Intact (12.0-88.0) pg/ml Lyme Disease IgG Ab (Negative) Lyme IgG (Western Blot) Lyme IgG 18 kDa Band Lyme IgG 23 kDa Band Lyme IgG 28 kDa Band Lyme IgG 30 kDa Band Lyme IgG 39 kDa Band Lyme IgG 41 kDa Band Lyme IgG 45 kDa Band Lyme IgG 58 kDa Band Lyme IgG 66 kDa Band Lyme IgG 93 kDa Band Lyme IgM Ab (WB) Lyme Disease IgM Ab (Negative) Lyme IgM 23 kDa Band Lyme IgM 39 kDa Band Lyme IgM 41 kDa Band Hepatitis A IgM Ab Hep Bs Antigen Hep Bs Ag Confirmation Hep B Core IgM Ab Hepatitis C Ab (EIA) Hep C Ab Signal/Cutoff 07/12/22 07/12/22 Range/Units 16:58 09:06 WBC RBC Hgb Hct MCV MCH MCHC Plt Count Sodium (136-145) mmol/L Potassium (3.5-5.1) mmol/L Chloride (98-107) mmol/L Carbon Dioxide (21-32) mmol/L Anion Gap (3-11) BUN (6-23) mg/dl Creatinine (0.6-1.4) mg/dl Est Cr Clr Drug Dosing ml/min Est GFR ( Amer) ml/min Est GFR (Non-Af Amer) ml/min BUN/Creatinine Ratio (10-20) Glucose (70-99(Fasting)) mg/dl POC Glucose 185 H (70-99) mg/dl Calcium (8.5-10.1) mg/dl Magnesium (1.7-2.4) mg/dl Total Bilirubin (0.2-1.0) mg/dl AST (13-39) U/L ALT (7-52) U/L Alkaline Phosphatase (34-104) U/L Total Protein (6.0-8.3) gm/dl Albumin (3.4-5.0) gm/dl Globulin (2.5-4.0) gm/dl Albumin/Globulin Ratio (0.9-2) Vitamin B1 25-OH Vitamin D Total 16.2 L (30-100) ng/ml TSH (0.300-4.500) uIu/ml Free T4 (0.61-1.60) ng/dl Free T3 (2.3-4.2) pg/ml PTH Intact (12.0-88.0) pg/ml Lyme Disease IgG Ab (Negative) Lyme IgG (Western Blot) Lyme IgG 18 kDa Band Lyme IgG 23 kDa Band Lyme IgG 28 kDa Band Lyme IgG 30 kDa Band Lyme IgG 39 kDa Band Lyme IgG 41 kDa Band Lyme IgG 45 kDa Band Lyme IgG 58 kDa Band Lyme IgG 66 kDa Band Lyme IgG 93 kDa Band Lyme IgM Ab (WB) Lyme Disease IgM Ab (Negative) Lyme IgM 23 kDa Band Lyme IgM 39 kDa Band Lyme IgM 41 kDa Band Hepatitis A IgM Ab Hep Bs Antigen Hep Bs Ag Confirmation Hep B Core IgM Ab Hepatitis C Ab (EIA) Hep C Ab Signal/Cutoff Diagnostic Findings Coccyx X-Ray 07/13/22 08:30 THORACIC SPINE 3 VIEWS, LUMBAR SPINE 3 VIEWS, COCCYX 2 VIEWS HISTORY: acute back pain, coccygeal pain. COMPARISON: Abdomen and pelvis CT 07/08/2022. Chest CT 08/31/2015. FINDINGS: No acute fracture or subluxation within the thoracic spine. Minimal anterior wedging at T11 remains stable and is likely chronic. Mild degenerative disc disease throughout the thoracic spine. Mild to moderate superior endplate compression deformities at L1 and L4. These demonstrate sclerotic edges and favor subacute fractures. These are similar to the recent CT examination. No additional fractures identified within the lumbar spine. Mild degenerative disc disease at L3-L4 and L5-S1 again noted. The sacrum and coccyx appear intact. Presacral soft tissues are maintained. IMPRESSION: 1. No acute fractures identified within the thoracic spine. 2. No change in the mild to moderate superior endplate subacute compression fractures at L1 and L4. 3. The sacrum and coccyx appear intact. ACT 112: Negative or not required by law. Electronically signed by: James Lemus M.D. 07/13/2022 9:53 AM Lumbar Spine X-Ray 07/13/22 08:30 THORACIC SPINE 3 VIEWS, LUMBAR SPINE 3 VIEWS, COCCYX 2 VIEWS HISTORY: acute back pain, coccygeal pain. COMPARISON: Abdomen and pelvis CT 07/08/2022. Chest CT 08/31/2015. FINDINGS: No acute fracture or subluxation within the thoracic spine. Minimal anterior wedging at T11 remains stable and is likely chronic. Mild degenerative disc disease throughout the thoracic spine. Mild to moderate superior endplate compression deformities at L1 and L4. These demonstrate sclerotic edges and favor subacute fractures. These are similar to the recent CT examination. No additional fractures identified within the lumbar spine. Mild degenerative disc disease at L3-L4 and L5-S1 again noted. The sacrum and coccyx appear intact. Presacral soft tissues are maintained. IMPRESSION: 1. No acute fractures identified within the thoracic spine. 2. No change in the mild to moderate superior endplate subacute compression fractures at L1 and L4. 3. The sacrum and coccyx appear intact. ACT 112: Negative or not required by law. Electronically signed by: James Lemus M.D. 07/13/2022 9:53 AM Thoracic Spine X-Ray 07/13/22 08:30 THORACIC SPINE 3 VIEWS, LUMBAR SPINE 3 VIEWS, COCCYX 2 VIEWS HISTORY: acute back pain, coccygeal pain. COMPARISON: Abdomen and pelvis CT 07/08/2022. Chest CT 08/31/2015. FINDINGS: No acute fracture or subluxation within the thoracic spine. Minimal anterior wedging at T11 remains stable and is likely chronic. Mild degenerative disc disease throughout the thoracic spine. Mild to moderate superior endplate compression deformities at L1 and L4. These demonstrate sclerotic edges and favor subacute fractures. These are similar to the recent CT examination. No additional fractures identified within the lumbar spine. Mild degenerative disc disease at L3-L4 and L5-S1 again noted. The sacrum and coccyx appear intact. Presacral soft tissues are maintained. IMPRESSION: 1. No acute fractures identified within the thoracic spine. 2. No change in the mild to moderate superior endplate subacute compression fractures at L1 and L4. 3. The sacrum and coccyx appear intact. ACT 112: Negative or not required by law. Electronically signed by: James Lemus M.D. 07/13/2022 9:53 AM Chest X-Ray 07/13/22 10:26 XR chest 1V portable HISTORY: eval pulm congestion COMPARISON: Chest 07/08/2022. FINDINGS: No pneumothorax. The heart is normal in size. Mild interstitial pulmonary edema has improved. Left basilar linear densities favor subsegmental atelectasis. No pleural effusions. IMPRESSION: Interval improvement in the mild interstitial pulmonary edema. ACT 112: Negative or not required by law. Electronically signed by: James Lemus M.D. 07/13/2022 12:14 PM PG Care Time/CCT Total # of Minutes Spent Total Time Spent with Patient: Total time spent is greater than 50% in coordination of care (as documented) at patient's floor/unit and/or counseling patient: Coding Level of Care Code 12621 SUB INP/OBS CARE 3/50MIN Diagnoses Closed compression fracture of L1 vertebra S32.010A Encounter type: initial encounter Abdominal ascites R18.8 Hypomagnesemia E83.42 Alcohol abuse, in remission F10.11 COPD (chronic obstructive pulmonary disease) J44.9 Type 2 diabetes mellitus E11.9 Thrombocytopenia D69.6 Vitamin D deficiency E55.9 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
[2022-07-13] MEDS: CALCITONIN SALMON NA 200 IU/AC 3.7 ML BTL SCH (08:47)
[2022-07-13] MEDS: BUMETANIDE 1 MG TAB PO SCH ×2 (08:47→17:40)
[2022-07-13] MEDS: ASPIRIN 81 MG ECTAB PO SCH (08:47)
[2022-07-13] MEDS: CALCIUM 600MG + VIT D 400 IU TAB PO SCH ×2 (08:47→21:04)
[2022-07-13] MEDS: buprenorphine HCL 8 MG SUBL SL SCH ×3 (08:47→21:03)
[2022-07-13] MEDS: GABAPENTIN 800 MG TAB PO SCH ×3 (08:48→21:04)
[2022-07-13] MEDS: MAGNESIUM CHLORIDE W/CALCIUM 64MG DELAYED REL TAB PO SCH ×2 (08:48→21:05)
[2022-07-13] MEDS: LACTULOSE SYRUP 20 GM/30 ML UDC PO SCH ×3 (08:48→21:04)
[2022-07-13] MEDS: CHOLECALCIFEROL 5,000 UNITS 125 MCG TAB PO SCH (08:48)
[2022-07-13] MEDS: SPIRONOLACTONE 100 MG TAB PO SCH (08:48)
[2022-07-13] MEDS: PANTOprazole 40 MG TAB PO SCH ×2 (08:48→21:05)
[2022-07-13] MEDS: rifAXIMin 550 MG TABLET PO SCH ×2 (08:48→21:05)
[2022-07-13] MEDS: INSULIN ASPART PER UNIT SC SCH ×4 (08:52→21:10)
--- NOTE | 2022-07-13 08:57 | Pain Management Consultation ---
Date of Consultation July 13, 2022 Assessment & Plan (1) Closed compression fracture of L1 vertebra: Encounter type: initial encounter Qualified Code(s): S32.010A - Wedge compression fracture of first lumbar vertebra, initial encounter for closed fracture (2) Compression fracture of L4 vertebra: (3) Alcohol abuse, in remission: (4) History of heroin abuse: Plan 1. Orthotics was consulted to fit patient for an LSO back brace 2. Continue Oxycodone 5mg PO x 4 hours PRN pain. Patient's request to increase the dose has been denied. He does not appear in significant pain and there is a significant history of Heroin abuse and alcoholism so opioid use is limited. I explained to the patient that he is not going to be pain free but the Oxycodone will diminish some of the pain and he is understanding. Do not recommend medical terminologist use. 3. Continue chronic buprenorphine 8 mg sublingual 3 times daily 4. Continue lidocaine patches and heating pad 5. Hydromorphone 0.5 mg IV if needed for breakthrough pain 6. Nothing interventional to offer Thank you for the consultation. Please contact with any questions or concerns. History of Present Illness Reason for Consultation: Back pain Attending Physician: Scot Davis MD History of Present Illness Mr. Gonzalez is a 61-year-old male with a significant history of cirrhosis, chronic hep C, alcohol abuse, past IV drug use - on Suboxone, AAA, DM, and COPD. He slipped off of a toilet last week and found to have an L1 and L4 compression fracture. He has been receiving lidocaine patch, oxycodone 5 mg every 4 hours, and Dilaudid 0.5 mg IV every 3 hours if needed for breakthrough pain. He is on baseline buprenorphine 8 mg 3 times daily and Gabapentin 800mg TID. Patient states that the pain regimen is providing little pain relief. He states that Oxycodone 5mg is not enough as he is 200 lbs. There is pain along the entire lumbar region and worse with sitting, standing, or twisting. No radicular symptoms or leg weakness. Allergies Allergy/AdvReac Type Severity Reaction Status Date / Time No Known Allergies Allergy Verified 07/08/22 16:38 Home Medications Medication Instructions Recorded Confirmed Type insulin glargine 100 unit/mL (3 80 unit subcut BID 08/20/20 07/08/22 History mL) subcutaneous pen (Lantus Solostar U-100 Insulin) insulin lispro 100 unit/mL 30 unit subcut TIDM 08/20/20 07/08/22 History subcutaneous solution (Humalog U-100 Insulin) aspirin 81 mg tablet,delayed 81 mg PO DAILY 11/25/20 07/08/22 History release (Chavo Low Dose Aspirin) omeprazole 20 mg capsule,delayed 20 mg PO DAILY 06/01/21 07/08/22 History release ipratropium 0.5 mg-albuterol 3 mg 3 ml inhalation QID PRN Shortness 12/27/21 07/08/22 History (2.5 mg base)/3 mL nebulization Of Breath Or Wheezing soln buprenorphine HCl 8 mg sublingual 8 mg sublingual TID 03/30/22 07/08/22 History tablet lactulose 20 gram/30 mL oral 20 g (30 mL) PO TID #60 mL 04/21/22 07/08/22 Rx solution propranolol 10 mg tablet 10 mg PO BID #60 tabs 04/21/22 07/08/22 Rx gabapentin 800 mg tablet 800 mg PO TID 06/12/22 07/08/22 History bumetanide 1 mg tablet 1 mg PO BID #60 tabs 06/23/22 07/08/22 Rx spironolactone 100 mg tablet 100 mg PO DAILY #30 tabs 06/23/22 07/08/22 Rx ciprofloxacin HCl 500 mg tablet 500 mg PO BID #14 tabs 07/06/22 07/08/22 Rx Patient History Medical History (Updated 07/13/22 @ 08:54 by Alicia Sainz PA-C) AAA (abdominal aortic aneurysm) per pt, last evaluated 6 mo ago [facility] or [facility]? "around 5 cm" -->says was referred to vascular surgery but no appt as of yet Alcoholic cirrhosis Anxiety Bipolar disorder COPD (chronic obstructive pulmonary disease) no inh at present Depression DM type 2 (diabetes mellitus, type 2) IDDM Dysphagia Encephalopathy Fibromyalgia Gastroparesis GERD (gastroesophageal reflux disease) Hepatitis C dx 1 mo ago --> per pt, referred to [facility] in [place] for treatment but no appt as of yet History of DVT (deep vein thrombosis) "few years ago" LLE -- unk etiology -- per pt, no treatment at time of dx History of heroin abuse quit 2018 History of kidney stones History of migraine HTN (hypertension) Hyperlipidemia Hypertension Nocturnal hypoxia per pt, prescribed home O2 @ 2 LPM qHS and PRN daily in past but unable to obtain as of late r/t financial struggles. admits to using sister's oxygen at night when able. 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 Sleep apnea non compliant with CPAP Surgical History History of colonoscopy History of ear surgery as a child History of esophagogastroduodenoscopy (EGD) History of tonsillectomy History of tooth extraction S/P excisional debridement LLE Family History Other No family history of adverse response to anesthesia No significant medical problems Social History Smoking Status: Light tobacco smoker Tobacco Type: Cigarettes Cigarettes Per Day: 1; Second Hand Exposure: No; Do You Dip or Chew Tobacco: No; Tobacco Cessation Education Requested by Patient: Yes Hx Alcohol Use: Yes Alcohol type: other Hx Substance Use: Yes Last Used Substance: Unknown Last Used Substance Other:: 2 years ago Substance Use Type Other:: last used meth 2017 Preferred Language: Lao Communication Ability: Effective Sales Estimator Required: No Beliefs That Will Affect Care: Jainism and Spiritual Spiritual Healthcare Practices: Would like to speak to a client engagement manager regarding making things right with GOD marital status: Single Current Living Situation: Alone Current Living Situation Comment: unknown How many Children do You have: 0 Other Information That Helps Us Care for You: No Feels Safe at Home: Yes Safety Concerns: Feels Safe At This Time Assistive Devices: Cane, Oxygen - Continuous and Walker Physical Exam Physical Exam: GENERAL: This is a 61 year old male that is resting comfortably in the hospital bed, in no acute distress. HEAD/FACE: Normocephalic and atraumatic. EYES: No drainage or conjunctival injection. ENT: Nose without bleeding or discharge. Oral mucosa moist. NECK: Full ROM without apparent pain. No swelling or masses noted. RESPIRATORY: Patient with unlabored breathing. No signs of respiratory distress. CHEST/AXILLA: Chest movement symmetrical. No deformities noted. BACK: Able to roll onto his side with some difficulty. There is focal midline tenderness from L1-S1. Mild right SI joint tenderness. No paravertebral, quadratus lumborum, gluteal, piriformis muscle spasm or trigger points noted. SKIN: [place], warm and dry. No rash noted. MS/EXTREMITY: No swelling, no deformities. Moving extremities appropriately. NEURO: Alert and appears oriented. Speech is fluent. Cranial Nerves are grossly intact. PSYCH: Alert, pleasant, affect is calm Results (Pain Clinic) Diagnostic Review CT Findings: ABDOMEN AND PELVIS CT WITH IV CONTRAST CT DOSE: 918.54 mGycm HISTORY: Generalized abdominal pain with ascites. Reported history of prior liver transplant pain, ascited TECHNIQUE: Multiaxial CT images of the abdomen and pelvis were performed following the IV administration of 87 cc of Optiray, A dose lowering technique was utilized adhering to the principles of ALARA. COMPARISON STUDY: May 21, 2022. FINDINGS: Trace left pleural effusion. Mild dependent bibasilar opacities suggestive of atelectasis. No pneumatosis or pneumoperitoneum. The spleen is enlarged, 22 cm. Moderately atrophic pancreas. Unremarkable adrenal glands. Cholelithiasis with gallbladder distention redemonstrated. Marked heterogeneity of the liver with cirrhosis and evidence of portal venous hypertension. Patent portal vein. Abdominal varicosities with small to moderate abdominal pelvic ascites. 7 mm calcification of the left kidney on image 200 ureteral calculi or hydronephrosis. Urinary bladder wall thickening with partial distention. Prostamegaly. Atherosclerosis of the aorta without aneurysm. Nonspecific inguinal lymphadenopathy measuring up to 1.4 cm on the right, stable from prior. Unchanged distal esophageal wall thickening with periesophageal varices. No bowel obstruction or bowel wall thickening. Mild colonic fecal retention. The visualized appendix appears noninflamed. Mild generalized body wall edema. M oderate L4 superior endplate compression deformity with 2 mm retropulsion, new from prior. 25% superior endplate compression of the L1 vertebral body with 2 mm retropulsion, also new from prior. Mild lumbar levoscoliosis.. Healing subacute mildly impacted anterior rib fractures. IMPRESSION: 1. No bowel obstruction or bowel wall thickening. 2. Cirrhosis with stigmata of portal venous hypertension including splenomegaly, abdominal varicosities with ascites. 3. Cholelithiasis with unchanged gallbladder distention. 4. 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 5. Healing subacute anterior rib fractures. 6. Acute to subacute L1 and L4 compression deformities, new from May 21, 2022. Minimal associated retropulsion without high-grade central canal stenosis. 7. Additional findings as above. ACT 112: Negative or not required by law. The above report was generated using voice recognition software. It may contain grammatical, syntax or spelling errors. Electronically signed by: Ramesh Hess M.D. 07/08/2022 4:15 PM
--- NOTE | 2022-07-13 09:56 | XRay Report ---
THORACIC SPINE 3 VIEWS, LUMBAR SPINE 3 VIEWS, COCCYX 2 VIEWS HISTORY: acute back pain, coccygeal pain. COMPARISON: Abdomen and pelvis CT 07/08/2022. Chest CT 08/31/2015. FINDINGS: No acute fracture or subluxation within the thoracic spine. Minimal anterior wedging at T11 remains stable and is likely chronic. Mild degenerative disc disease throughout the thoracic spine. Mild to moderate superior endplate compression deformities at L1 and L4. These demonstrate sclerotic edges and favor subacute fractures. These are similar to the recent CT examination. No additional fra ctures identified within the lumbar spine. Mild degenerative disc disease at L3-L4 and L5-S1 again no jess. The sacrum and coccyx appear intact. Presacral soft tissues are maintained. IMPRESSION: 1. No acute fractures identified within the thoracic spine. 2. No change in the mild to moderate superior endplate subacute compression fractures at L1 and L4. 3. The sacrum and coccyx appear intact. ACT 112: Negative or not required by law. Electronically signed by: James Lemus M.D. 07/13/2022 9:53 AM
--- NOTE | 2022-07-13 09:59 | Gastrointestinal Consultation ---
Date of Consultation July 13, 2022 Assessment & Plan (1) Cirrhosis: (2) Elevated bilirubin: Plan -No indication for MRCP at this time given unremarkable biliary ducts on US and given his bilirubin is at his baseline. Bilirubin much improved from previous admission; would expect ongoing bili abnormalities given his cirrhosis. If acutely worsening bili and RUQ pain, then consider MRCP at that time. 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 Patient was recently seen by our service and was referred to hepatology at [facility]. In the interim, it appears that patient sustained a fall while at home and is hospitalized with acute compression fractures. GI has been consulted to determine if patient needs an MRCP. US from 07/12/22 does not show any biliary ductal dilatation. There are chronic, ongoing findings of cholelithiasis. His T bili today is 1.4. Of note, this was significant higher during recent admission for ascites. No jaundice. Patient has ongoing back pain. No RUQ/epigastric pain. He takes Aldactone 100 mg daily at home, Propranolol 10 mg BID, Omeprazole 20 mg daily, Lactulose 20 gm TID, & Bumex 1 mg po BID. He also has been given Xifaxan during his admission. No current signs of SBP. Recent paracentesis unremarkable for SBP. He has minimal ascites noted on US from 07/12/22. No alarming acute GI concerns beyond his baseline poor liver health. Chuck is in good spirits today. Despite his history, he had 2 1/2 years of sobriety after his sister came to [place], removed him from his homeless encampment, and brought him to live near her. Unfortunately, patient did relapse in April 2022, but notes that was the last time he drank alcohol. Chuck notes that he has started to accept that his decisions have led to terrible health consequences, and he discusses with me today that he has found God and finds himself attending uatsdin regularly. He hangs onto the notion that he will be saved and his earthly problems will be no longer. Patient has great insight into his current health situation. 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 Allergies Allergy/AdvReac Type Severity Reaction Status Date / Time No Known Allergies Allergy Verified 07/08/22 16:38 Home Medications Medication Instructions Recorded Confirmed Type insulin glargine 100 unit/mL (3 80 unit subcut BID 08/20/20 07/08/22 History mL) subcutaneous pen (Lantus Solostar U-100 Insulin) insulin lispro 100 unit/mL 30 unit subcut TIDM 08/20/20 07/08/22 History subcutaneous solution (Humalog U-100 Insulin) aspirin 81 mg tablet,delayed 81 mg PO DAILY 11/25/20 07/08/22 History release (Chavo Low Dose Aspirin) omeprazole 20 mg capsule,delayed 20 mg PO DAILY 06/01/21 07/08/22 History release ipratropium 0.5 mg-albuterol 3 mg 3 ml inhalation QID PRN Shortness 12/27/21 07/08/22 History (2.5 mg base)/3 mL nebulization Of Breath Or Wheezing soln buprenorphine HCl 8 mg sublingual 8 mg sublingual TID 03/30/22 07/08/22 History tablet lactulose 20 gram/30 mL oral 20 g (30 mL) PO TID #60 mL 04/21/22 07/08/22 Rx solution propranolol 10 mg tablet 10 mg PO BID #60 tabs 04/21/22 07/08/22 Rx gabapentin 800 mg tablet 800 mg PO TID 06/12/22 07/08/22 History bumetanide 1 mg tablet 1 mg PO BID #60 tabs 06/23/22 07/08/22 Rx spironolactone 100 mg tablet 100 mg PO DAILY #30 tabs 06/23/22 07/08/22 Rx ciprofloxacin HCl 500 mg tablet 500 mg PO BID #14 tabs 07/06/22 07/08/22 Rx Patient History Medical History AAA (abdominal aortic aneurysm) per pt, last evaluated 6 mo ago [place] [facility] [place]? "around 5 cm" -->says was referred to vascular surgery but no appt as of yet Alcoholic cirrhosis Anxiety Bipolar disorder COPD (chronic obstructive pulmonary disease) no inh at present Depression DM type 2 (diabetes mellitus, type 2) IDDM Dysphagia Encephalopathy Fibromyalgia Gastroparesis GERD (gastroesophageal reflux disease) Hepatitis C dx 1 mo ago --> per pt, referred to [facility] in [place] for treatment but no appt as of yet History of DVT (deep vein thrombosis) "few years ago" LLE -- unk etiology -- per pt, no treatment at time of dx History of heroin abuse quit 2017 History of kidney stones History of migraine HTN (hypertension) Hyperlipidemia Hypertension Nocturnal hypoxia per pt, prescribed home O2 @ 2 LPM qHS and PRN daily in past but unable to obtain as of late r/t financial struggles. admits to using sister's oxygen at night when able. 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 Sleep apnea non compliant with CPAP Surgical History History of colonoscopy History of ear surgery as a child History of esophagogastroduodenoscopy (EGD) History of tonsillectomy History of tooth extraction S/P excisional debridement LLE Family History Other No family history of adverse response to anesthesia No significant medical problems Social History Smoking Status: Light tobacco smoker Tobacco Type: Cigarettes Cigarettes Per Day: 1; Second Hand Exposure: No; Do You Dip or Chew Tobacco: No; Tobacco Cessation Education Requested by Patient: Yes Hx Alcohol Use: Yes Alcohol type: other Hx Substance Use: Yes Last Used Substance: Unknown Last Used Substance Other:: 2 years ago Substance Use Type Other:: last used meth 2018 Preferred Language: Uzbek Communication Ability: Effective Spanish Tutor Required: No Beliefs That Will Affect Care: Holiness and Spiritual Spiritual Healthcare Practices: Would like to speak to a urogynecology physician regarding making things right with GOD marital status: Single Current Living Situation: Alone Current Living Situation Comment: unknown How many Children do You have: 0 Other Information That Helps Us Care for You: No Feels Safe at Home: Yes Safety Concerns: Feels Safe At This Time Assistive Devices: Cane, Oxygen - Continuous and Walker Review of Systems Constitutional: no fever and no chills Respiratory: no cough and no dyspnea Cardiovascular: no chest pain Gastrointestinal: no abdominal pain Integumentary: no yellowing of the skin Physical Exam Constitutional: well developed Respiratory: normal respiratory effort Cardiovascular: Rate/Rhythm: regular rate Gastrointestinal (Abdomen): Inspection/Auscultation: abdomen normal to inspection Percussion/Palpation: abdomen soft; abdomen nontender Psychiatric: Orientation: alert and oriented x 3 Results & Data ([facility]) Vital Signs (Past 12 Hours) Vital Signs Temp Pulse Pulse Resp BP Pulse Ox O2 Del Method 07/13/22 07:35 36.7 C 64 18 101/55 L 92 Room Air 07/12/22 21:49 62 109/57 L PG Care Time/CCT Total # of Minutes Spent Total Time Spent with Patient: Total time spent is greater than 50% in coordination of care (as documented) at patient's floor/unit and/or counseling patient: Coding Level of Care Code INP/OBS CONSULT LVL 4, 60 MIN Diagnoses Cirrhosis K74.60 Elevated bilirubin R17
--- NOTE | 2022-07-13 12:15 | XRay Report ---
XR chest 1V portable HISTORY: eval pulm congestion COMPARISON: Chest 07/08/2022. FINDINGS: No pneumothorax. The heart is normal in size. Mild interstitial pulmonary edema has improve d. Left basilar linear densities favor subsegmental atelectasis. No pleural effusions. IMPRESSION: Interval improvement in the mild interstitial pulmonary edema. ACT 112: Negative or not required by law. Electronically signed by: James Lemus M.D. 07/13/2022 12:14 PM
[2022-07-13] MEDS: MAGNESIUM SULFATE / D5W 1 GM/100 ML BAG IV SCH ×2 (12:16→14:00)
[2022-07-13] MEDS: DOXYCYCLINE HYCLATE 100 MG CAP PO SCH ×2 (12:19→21:04)
[2022-07-13] MEDS: LIDOCAINE 5% 1 PATCH TD SCH (12:25)
[2022-07-13] MEDS ORDERED: BUMETANIDE 1 MG TAB PO ONE (13:08)
[2022-07-13] MEDS ORDERED: POTASSIUM CHLORIDE CRTAB 20 MEQ TABCR PO STA (13:08)
[2022-07-13] MEDS: PROPRANOLOL HCL 10 MG TAB PO SCH ×2 (14:01→21:05)
[2022-07-13 14:53] LABS: Basophils # (auto) 0.02 K/uL (0-0.2); Basophils % (auto) 0.4 %; Eosinophils # (auto) 0.36 K/uL (0-0.50); Eosinophils % (auto) 6.8 %; Hematocrit (blood only) 33.8 % (42.0-52.0); Hemoglobin 11.6 g/dl (14.0-18.0); Immature Granulocytes # (auto) 0.01 K/uL (0.01-0.20); Immature Granulocytes % (auto) 0.2 %; Lymphocytes # (auto) 1.54 K/uL (1.2-3.4); Lymphocytes % (auto) 29.3 %; Mean Corpuscular Hgb Conc 34.3 g/dL (32.0-36.0); Mean Corpuscular Volume 93.4 fL (80.0-100.0); Mean Platelet Volume 11.7 fL (9.4-12.4); Monocytes # (auto) 0.58 K/uL (0.11-0.59); Neutrophils # (auto) 2.75 K/uL (1.40-6.50); Neutrophils % (auto) 52.3 %; Platelet Count 73 K/uL (130-400); RDW Coefficient of Variation 15.1 % (11.5-14.5); RDW Standard Deviation 52.1 fL (36.4-46.3); Red Blood Count 3.62 M/uL (4.70-6.10); White Blood Count 5.26 K/ul (4.8-10.8)
[2022-07-13] MEDS: DICLOFENAC SOD 1% GEL 100 GM TUBE EXT SCH ×4 (17:50→21:03)
[2022-07-13] MEDS: LANTUS PER UNIT CHARGE SQ SCH (21:17)
[2022-07-14] MEDS: oxyCODONE HCL IR 5 MG TAB (IMMEDIATE RELEASE) PO PRN ×3 (05:50→18:11)
[2022-07-14] MEDS: HYDROmorphone INJ 0.5 MG/0.5 ML SYR IV PRN ×2 (07:59→14:05)
[2022-07-14 08:01] LABS: Hematocrit (blood only) 28.3 % (42.0-52.0); Mean Corpuscular Hemoglobin 31.8 pg (25.0-34.0); Mean Corpuscular Hgb Conc 35.3 g/dL (32.0-36.0); Mean Corpuscular Volume 90.1 fL (80.0-100.0); Mean Platelet Volume 11.6 fL (9.4-12.4); Platelet Count 52 K/uL (130-400); RDW Coefficient of Variation 14.7 % (11.5-14.5); RDW Standard Deviation 48.3 fL (36.4-46.3); Red Blood Count 3.14 M/uL (4.70-6.10); White Blood Count 3.36 K/ul (4.8-10.8)
[2022-07-14] MEDS: CHOLECALCIFEROL 5,000 UNITS 125 MCG TAB PO SCH (08:13)
[2022-07-14] MEDS: SPIRONOLACTONE 100 MG TAB PO SCH (08:13)
[2022-07-14] MEDS: rifAXIMin 550 MG TABLET PO SCH ×2 (08:13→20:48)
[2022-07-14] MEDS: BUMETANIDE 1 MG TAB PO SCH ×2 (08:13→15:58)
[2022-07-14] MEDS: THIAMINE HCL 100 MG TAB PO SCH (08:13)
[2022-07-14] MEDS: ASPIRIN 81 MG ECTAB PO SCH (08:14)
[2022-07-14] MEDS: DOXYCYCLINE HYCLATE 100 MG CAP PO SCH ×2 (08:14→20:48)
[2022-07-14] MEDS: PROPRANOLOL HCL 10 MG TAB PO SCH ×2 (08:14→20:50)
[2022-07-14] MEDS: GABAPENTIN 800 MG TAB PO SCH ×3 (08:14→20:48)
[2022-07-14] MEDS: PANTOprazole 40 MG TAB PO SCH ×2 (08:15→20:48)
[2022-07-14] MEDS: CALCIUM 600MG + VIT D 400 IU TAB PO SCH ×2 (08:15→20:48)
[2022-07-14] MEDS: MAGNESIUM CHLORIDE W/CALCIUM 64MG DELAYED REL TAB PO SCH ×2 (08:15→20:48)
[2022-07-14] MEDS: LIDOCAINE 5% 1 PATCH TD SCH (08:16)
[2022-07-14] MEDS: DICLOFENAC SOD 1% GEL 100 GM TUBE EXT SCH ×4 (08:17→20:53)
[2022-07-14 08:18] LABS: Albumin Globulin Ratio 0.8 (0.9-2); Albumin Level 2.7 gm/dl (3.4-5.0); BUN Creatinine Ratio 19.8 (10-20); Bilirubin,Total 1.5 mg/dl (0.2-1.0); Calcium 8.9 mg/dl (8.5-10.1); Creatinine Clr Calc Pharmacy 80.7 ml/min; Est GFR (African American) 79.4 ml/min; Est GFR (Non-African American) 68.5 ml/min; Globulin 3.5 gm/dl (2.5-4.0); Magnesium 1.7 mg/dl (1.7-2.4); Total Protein 6.2 gm/dl (6.0-8.3)
[2022-07-14] MEDS: CALCITONIN SALMON NA 200 IU/AC 3.7 ML BTL SCH (08:18)
--- NOTE | 2022-07-14 08:22 | Hospitalist Progress Note ---
Date of Service July 14, 2022 Assessment & Plan (1) Closed compression fracture of L1 vertebra: Plan: Likely 2/2 falling/sitting abruptly on toilet when walker slid out Imaging on admit with acute to subacute L1/L4 compression deformities (new from May 2022) Additional imaging w/o fx to sacrum -- does have some SI tenderness, not candidate for injections Continue pain control: Continue Subutex, lidocaine patches, heating pad, reports improvement w/ use of topical voltaren added 07/12 as well Continued encouragement for patient that will not be pain free but wanting to be manageable, wanting to limit IV pain medication, jack given prior abuse heroin hx Vit D low -- replacement ordered, continue at d/c Pain management consulted: to continue Subutex, oxycodone prn (not to increase dose), Dilaudid for breakthrough 0.25mg (discussed w/ patient to limit). Orthotics consulted for TLSO brace for additional pain control PT/OT consulted -- CM following, planning for rehab . [facility] wanted updated therapy notes, hopefully to be done today *Lyme checked -- reported dog with lots of ticks, bites to head in past but no rashes or ever treated. IgG +, IgM negative, WB pending -- started Doxycycline 100mg BID empirically 07/14 --> Patient seen, stable. Did get dose of Dilaudid overnight, 0.25mg dose ativan this morning for spasm pain w/ reported relief Continue LSO brace as fitted by orthotics yesterday - he does report this has helped Bumex 1mg additional on 07/13 for volume overload, additional 1mg for today w/ elevated BNP Continue Doxy BID while awaiting Lyme WB testing Continue PT/OT and awaiting bed Given patient admitted within past month and rehab recd but denied and went home and fell w/ new fractures and unable by himself recommend patient be considered for inpatient rehab to work on strengthening/conditioning (2) Abdominal ascites: Plan: 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 Cholelithiasis with unchanged gallbladder distention. 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 Healing subacute anterior rib fractures. Acute to subacute L1 and L4 compression deformities, new from May 21, 2022. Minimal associated retropulsion without high-grade central canal stenosis. Additional findings as above. Covered prior for SBP w/ rocephin, fluid from 07/05 w/o growth or organism on GS and abd 07/09 small amt ascites Empiric abx stopped 07/11 RESUMED RIFAXIMIN 550mg BID 07/12-- new rx at d/c if he does not have at home RUQ obtained given elevated TB/ALP and RUQ on exam w/ CTAP on admit cholelith iasis w/ unchanged GB distension. Lipase wnl on admit. Prior admit, normal HIDA. GI consulted -- appreciate recs noted patent portal vein, low likelihood of PVT causing pain issues Hepatitis panel LFTs stable but will check anaplasmosis smear given LFTs/tick bites, equivocal Lyme screening Continue Bumex and Spironolactone , propranolol (switched from lasix last admission to bumex, ?benefit rather to be on torsemide) Additional 1mg bumex for 07/13 at lunch, and 07/14 (BNP 162) Of note, sounds like patient may/maynot skip some diuretics in the evening due to not wanting to get up to urinate as much Monitor response to diuretics Chronic mild hepatitis, avoid hepatotoxic medications Needs outpatient f/u -- coordinate w/ navigator in AM (she states she did arrange for such last admission) -- Liver Coordinator is Megan Smith @ [phone] and she should be reaching out to him to arrange intake If needed/deteriorate or need transferred to [facility] doc-doc [phone] (3) Hypomagnesemia: Plan: Chronic lows, ?2nd to PPI use 1.7 on AM labs, 1gm IV ordered but also remains on newly switched slow mag BID Also started Vit D supplementation as well Monitor on repeat (4) Alcohol abuse, in remission: Plan: In remission -- lapse of drinking in April but reports hasn't since that time Continue thiamine, added 07/13 (5) COPD (chronic obstructive pulmonary disease): Plan: On chronic home O2 -- states he does have and uses at night/sleeping and when up/ambulating if having any difficulty but has been on room air recently w/ additional bumex use Nebs PRN No exacerbation currently (6) Type 2 diabetes mellitus: Plan: Last A1c 9.8 Lantus, SSI and CC diet Accuchecks AC and HS (7) Thrombocytopenia: Plan: Stable, no active bleeding on admission Reviewed repeat cbc, stable but plts are getting low (8) Vitamin D deficiency: Plan: checked due to fractures low 16.2 -- replacement to be ordered and would continue at d/c. 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 The chart was reviewed. Case discussed with MARCELA Graves. Agree with assessment and plan Subjective eval this morning, laying in bed, appears more comfortable since small dose ativan this morning for spasm pain. He reports the brace was fitted and provided yesterday and he was wearing it up in chair and actually did a couple of laps around yesterday but may have overdone it. He states on the last walk his one leg gave out on him a little but no further falls. Will need to f/u with CM about rehab/needs. Discussed bumex use, his sister helps with meds, as he noted not taking something in evening to prevent need to pee a million times. Discussed Na improved w/ additional dose and will give additional dose today. Appetite reported fair but reporting eating 100% of meals provided. Moved bowels last night but not yet today. Questions/concerns addressed at this time. Physical Exam Physical Exam: General: chronically ill appearing male sitting up in bed, NAD HEENT: head normocephalic, atraumatic, mm improved, +facial hair, ponytail, poor dentition Resp: improved effort, no obvious w/c, on room air CV: RR, no significant m/g, trace pedal edema GI: +BS, slight ascites, +RUQ tenderness to palpation/R flank, no obvious bruising MSK/Neuro: tender to palpation lumbar spine as well as coccyx, no decreased strength unilaterally, heating bad to low back currently Psych: Alert/oriented to person/place, cooperative with care Results & Data Results & Data ([facility]) Vital Signs (Past 12 Hours) Vital Signs Temp Pulse Pulse Resp BP BP Pulse Ox 07/14/22 07:44 36.7 C 64 17 102/55 L 97 07/13/22 23:01 07/13/22 21:27 36.7 C 78 16 145/78 H 94 O2 Del Method 07/14/22 07:44 Room Air 07/13/22 23:01 Room Air 07/13/22 21:27 Room Air Laboratory Results 07/14/22 07/14/22 07/14/22 Range/Units 12:07 09:19 08:00 WBC (4.8-10.8) K/ul RBC (4.70-6.10) M/uL Hgb (14.0-18.0) g/dl Hct (42.0-52.0) % MCV (80.0-100.0) fL MCH (25.0-34.0) pg MCHC (32.0-36.0) g/dL RDW Std Deviation (36.4-46.3) fL RDW Coeff of Nabeel (11.5-14.5) % Plt Count (130-400) K/uL MPV (9.4-12.4) fL Immature Gran % (Auto) % Neut % (Auto) % Lymph % (Auto) % [place] % (Auto) % Eos % (Auto) % Baso % (Auto) % Neut # (Auto) (1.40-6.50) K/uL Lymph # (Auto) (1.2-3.4) K/uL [place] # (Auto) (0.11-0.59) K/uL Eos # (Auto) (0-0.50) K/uL Baso # (Auto) (0-0.2) K/uL Immature Gran # (Auto) (0.01-0.20) K/uL Sodium (136-145) mmol/L Potassium (3.5-5.1) mmol/L Chloride (98-107) mmol/L Carbon Dioxide (21-32) mmol/L Anion Gap (3-11) BUN (6-23) mg/dl Creatinine (0.6-1.4) mg/dl Est Cr Clr Drug Dosing ml/min Est GFR ( Amer) ml/min Est GFR (Non-Af Amer) ml/min BUN/Creatinine Ratio (10-20) Glucose (70-99(Fasting)) mg/dl POC Glucose 174 H 111 H (70-99) mg/dl Calcium (8.5-10.1) mg/dl Magnesium (1.7-2.4) mg/dl Total Bilirubin (0.2-1.0) mg/dl AST (13-39) U/L ALT (7-52) U/L Alkaline Phosphatase (34-104) U/L B-Natriuretic Peptide 162 H (0-100) pg/ml Total Protein (6.0-8.3) gm/dl Albumin (3.4-5.0) gm/dl Globulin (2.5-4.0) gm/dl Albumin/Globulin Ratio (0.9-2) Anaplasma Smear 07/14/22 07/14/22 07/13/22 Range/Units 07:20 07:20 20:30 WBC 3.36 L (4.8-10.8) K/ul RBC 3.14 L (4.70-6.10) M/uL Hgb 10.0 L (14.0-18.0) g/dl Hct 28.3 L (42.0-52.0) % MCV 90.1 (80.0-100.0) fL MCH 31.8 (25.0-34.0) pg MCHC 35.3 (32.0-36.0) g/dL RDW Std Deviation 48.3 H (36.4-46.3) fL RDW Coeff of Nabeel 14.7 H (11.5-14.5) % Plt Count 52 L (130-400) K/uL MPV 11.6 (9.4-12.4) fL Immature Gran % (Auto) % Neut % (Auto) % Lymph % (Auto) % [place] % (Auto) % Eos % (Auto) % Baso % (Auto) % Neut # (Auto) (1.40-6.50) K/uL Lymph # (Auto) (1.2-3.4) K/uL [place] # (Auto) (0.11-0.59) K/uL Eos # (Auto) (0-0.50) K/uL Baso # (Auto) (0-0.2) K/uL Immature Gran # (Auto) (0.01-0.20) K/uL Sodium 133 L (136-145) mmol/L Potassium 4.0 (3.5-5.1) mmol/L Chloride 101 (98-107) mmol/L Carbon Dioxide 28 (21-32) mmol/L Anion Gap 4 (3-11) BUN 23 (6-23) mg/dl Creatinine 1.16 (0.6-1.4) mg/dl Est Cr Clr Drug Dosing 80.7 ml/min Est GFR ( Amer) 79.4 ml/min Est GFR (Non-Af Amer) 68.5 ml/min BUN/Creatinine Ratio 19.8 (10-20) Glucose 118 H (70-99(Fasting)) mg/dl POC Glucose 132 H (70-99) mg/dl Calcium 8.9 (8.5-10.1) mg/dl Magnesium 1.7 (1.7-2.4) mg/dl Total Bilirubin 1.5 H (0.2-1.0) mg/dl AST 53 H (13-39) U/L ALT 16 (7-52) U/L Alkaline Phosphatase 112 H (34-104) U/L B-Natriuretic Peptide (0-100) pg/ml Total Protein 6.2 (6.0-8.3) gm/dl Albumin 2.7 L (3.4-5.0) gm/dl Globulin 3.5 (2.5-4.0) gm/dl Albumin/Globulin Ratio 0.8 L (0.9-2) Anaplasma Smear 07/13/22 07/13/22 07/13/22 Range/Units 17:26 13:56 13:56 WBC 5.26 (4.8-10.8) K/ul RBC 3.62 L (4.70-6.10) M/uL Hgb 11.6 L (14.0-18.0) g/dl Hct 33.8 L (42.0-52.0) % MCV 93.4 (80.0-100.0) fL MCH 32.0 (25.0-34.0) pg MCHC 34.3 (32.0-36.0) g/dL RDW Std Deviation 52.1 H (36.4-46.3) fL RDW Coeff of Nabeel 15.1 H (11.5-14.5) % Plt Count 73 L (130-400) K/uL MPV 11.7 (9.4-12.4) fL Immature Gran % (Auto) 0.2 % Neut % (Auto) 52.3 % Lymph % (Auto) 29.3 % [place] % (Auto) 11.0 % Eos % (Auto) 6.8 % Baso % (Auto) 0.4 % Neut # (Auto) 2.75 (1.40-6.50) K/uL Lymph # (Auto) 1.54 (1.2-3.4) K/uL [place] # (Auto) 0.58 (0.11-0.59) K/uL Eos # (Auto) 0.36 (0-0.50) K/uL Baso # (Auto) 0.02 (0-0.2) K/uL Immature Gran # (Auto) 0.01 (0.01-0.20) K/uL Sodium (136-145) mmol/L Potassium (3.5-5.1) mmol/L Chloride (98-107) mmol/L Carbon Dioxide (21-32) mmol/L Anion Gap (3-11) BUN (6-23) mg/dl Creatinine (0.6-1.4) mg/dl Est Cr Clr Drug Dosing ml/min Est GFR ( Amer) ml/min Est GFR (Non-Af Amer) ml/min BUN/Creatinine Ratio (10-20) Glucose (70-99(Fasting)) mg/dl POC Glucose 162 H (70-99) mg/dl Calcium (8.5-10.1) mg/dl Magnesium (1.7-2.4) mg/dl Total Bilirubin (0.2-1.0) mg/dl AST (13-39) U/L ALT (7-52) U/L Alkaline Phosphatase (34-104) U/L B-Natriuretic Peptide (0-100) pg/ml Total Protein (6.0-8.3) gm/dl Albumin (3.4-5.0) gm/dl Globulin (2.5-4.0) gm/dl Albumin/Globulin Ratio (0.9-2) Anaplasma Smear See Comment PG Care Time/CCT Total # of Minutes Spent Total Time Spent with Patient: Total time spent is greater than 50% in coordination of care (as documented) at patient's floor/unit and/or counseling patient: Coding Level of Care Code 24680 SUB INP/OBS CARE 2/35MIN Diagnoses Closed compression fracture of L1 vertebra S32.010A Encounter type: initial encounter Abdominal ascites R18.8 Hypomagnesemia E83.42 Alcohol abuse, in remission F10.11 COPD (chronic obstructive pulmonary disease) J44.9 Type 2 diabetes mellitus E11.9 Thrombocytopenia D69.6 Vitamin D deficiency E55.9 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
[2022-07-14] MEDS ORDERED: LORazepam 2 MG/1 ML VIAL IV STA (09:05)
[2022-07-14] MEDS: buprenorphine HCL 8 MG SUBL SL SCH ×3 (09:11→20:48)
[2022-07-14] MEDS: INSULIN ASPART PER UNIT SC SCH ×4 (09:24→20:49)
[2022-07-14] MEDS: LACTULOSE SYRUP 20 GM/30 ML UDC PO SCH ×3 (09:38→20:48)
[2022-07-14] MEDS ORDERED: BUMETANIDE 1 MG TAB PO ONE (12:00)
[2022-07-14] MEDS: LANTUS PER UNIT CHARGE SQ SCH (21:30)
[2022-07-15] MEDS ORDERED: HYDROmorphone INJ 0.5 MG/0.5 ML SYR IV STA (04:05)
--- NOTE | 2022-07-15 07:57 | Hospitalist Progress Note ---
Date of Service July 15, 2022 Assessment & Plan (1) Closed compression fracture of L1 vertebra: Plan: Likely 2/2 falling/sitting abruptly on toilet when walker slid out Imaging on admit with acute to subacute L1/L4 compression deformities (new from May 2022) Additional imaging w/o fx to sacrum -- does have some SI tenderness, not candidate for injections Continue pain control: Continue Subutex, lidocaine patches, heating pad, reports improvement w/ use of topical voltaren added 07/12 as well Continued encouragement for patient that will not be pain free but wanting to be manageable, wanting to limit IV pain medication, jack given prior abuse heroin hx Vit D low -- replacement ordered, continue at d/c Pain management consulted: to continue Subutex, oxycodone prn (not to increase dose), Dilaudid for breakthrough 0.25mg (discussed w/ patient to limit). Orthotics consulted for TLSO brace for additional pain control PT/OT consulted -- CM following, planning for rehab . [facility] wanted updated therapy notes, hopefully to be done today *Lyme checked -- reported dog with lots of ticks, bites to head in past but no rashes or ever treated. IgG +, IgM negative, WB pending -- started Doxycycline 100mg BID empirically 07/15 continue pain control, ativan 1x dose this morning for spasm (avoiding baclofen/flexeril given LFTs/cirrhosis -- limited options) --> Switched to torsemide from Bumex to see if better response (got additional 1mg dose 07/14) -- holding further aspirin given platelets -- no bleeding reported -- given back pain/RUQ pain EBV/CMV testing added. Hepatitis panel pending (hx hep C, untreated) US abd w/o ascites to tap. Will start Solu-Medrol 40mg IV Q6H couple of doses and see if it improves pain as well. Consulted and called pharmacy for glycemic management and checking A1c w/ AM labs Peer-peer to be completed as insurance denied --> completed, denied. 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 Cholelithiasis with unchanged gallbladder distention. 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 Healing subacute anterior rib fractures. Acute to subacute L1 and L4 compression deformities, new from May 21, 2022. Minimal associated retropulsion without high-grade central canal stenosis. Additional findings as above. Covered prior for SBP w/ rocephin, fluid from 07/05 w/o growth or organism on GS and abd 07/09 small amt ascites Empiric abx stopped 07/11 RESUMED RIFAXIMIN 550mg BID 07/12-- new rx at d/c if he does not have at home RUQ obtained given elevated TB/ALP and RUQ on exam w/ CTAP on admit cholelithiasis w/ unchanged GB distension. Lipase wnl on admit. Prior admit, normal HIDA last fall. GI consulted -- appreciate recs noted patent portal vein, low likelihood of PVT causing pain issues LFTs stable but will check anaplasmosis smear given LFTs/tick bites, equivocal Lyme screening - see below Continue Bumex and Spironolactone , propranolol (switched from lasix last admission to bumex, ?benefit rather to be on torsemide) Additional 1mg bumex for 07/13 at lunch, and 07/14 (BNP 162) Of note, sounds like patient may/maynot skip some diuretics in the evening due to not wanting to get up to urinate as much Switched to torsemide 20mg PO BID starting tonight 07/15 and discontinued bumex Repeat US w/o evidence for significant ascites CMV/EBV titers added, hep panel pending -- Chronic mild hepatitis, avoid hepatotoxic medications Increased lactulose to 30mg TID given only 1small BM reported -- titrate to at least 2-3x/daily. will repeat ammonia w/ am labs Needs outpatient f/u -- coordinate w/ navigator in AM (she states she did arrange for such last admission) -- Liver Coordinator is Megan Smith @ [phone] and she should be reaching out to him to arrange intake If needed/deteriorate or need transferred to [facility] doc-doc [phone] (3) Hypomagnesemia: Plan: Chronic lows, ?2nd to PPI use 1.5 on AM labs, IV ordered but also remains on newly switched slow mag BID Also started Vit D supplementation as well Monitor on repeat (4) Alcohol abuse, in remission: Plan: In remission -- lapse of drinking in April but reports hasn't since that ti me Continue thiamine, added 07/13 (5) COPD (chronic obstructive pulmonary disease): Plan: On chronic home O2 -- states he does have and uses at night/sleeping and when up/ambulating if having any difficulty but has been on room air recently (reported using at night) w/ additional bumex use which has been switched to torsemide Nebs PRN No exacerbation currently (6) Type 2 diabetes mellitus: Plan: Last A1c 9.8 in Feb Lantus, SSI and CC diet Accuchecks AC and HS glucose on AM labs gotten late, but consult pharmacy for additional management. Repeat A1c for AM pending (7) Thrombocytopenia: Plan: Stable, no active bleeding on admission Reviewed repeat cbc, stable but plts are getting low --> ASPIRIN PLACED ON HOLD (8) Vitamin D deficiency: Plan: checked due to fractures low 16.2 -- replacement to be ordered and would continue at d/c. 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 May need to consider home with HH but will have CM touch base tomorrow to present further options/LTC/PCH at discharge Admission and Anticipated Discharge Date Admission Date: July 10, 2022 Supervising Physician Co-Signing Physician Notes The patient was not seen by me. The chart was reviewed. Case discussed with MARCELA Graves. Agree with assessment and plan Subjective eval this morning, up in chair. back spasms, 0.25mg IV Ativan x 1 now. Pain primarily to buttocks/low back. he states he had some increased RUQ discomfort last evening into this morning. Only moved his bowels a little yesterday. Abd is distended. Discussed increasing dose of lactulose as constipation could also be contributing to discomfort. Cough but no sputum production. Will eval abd US for need for paracentesis. Also discussed, no lightheaded/dizziness, and will switch from bumex to torsemide to see if better results with diuresis. Wanting to go to [facility], discussed [facility] and he wasn't thrilled. Will confirm w/ CM that this is only option as previously told by them yesterday. Physical Exam Physical Exam: General: chronically ill appearing male sitting up in recliner, minimally uncomfortable appearing but no acute distress HEENT: head normocephalic, atraumatic, mm stable,+facial hair, ponytail, poor dentition Resp: improved effort, no obvious w/c, on room air CV: RR, no significant m/g, trace pedal edema GI: +BS, slight ascites, significant +RUQ tenderness to palpation/R flank, no obvious bruising MSK/Neuro: tender to palpation lumbar spine as well as coccyx, no decreased strength unilaterally, heating bad to low back currently Psych: Alert/oriented to person/place, cooperative with care Results & Data Results & Data ([facility]) Vital Signs (Past 12 Hours) Vital Signs Temp Pulse Resp BP BP Pulse Ox O2 Del Method 07/15/22 03:25 116/62 07/14/22 23:03 Room Air 07/14/22 20:46 36.5 C 60 16 90/53 L 93 Room Air Laboratory Results 07/15/22 07/15/22 07/15/22 Range/Units 12:19 08:29 08:29 WBC (4.8-10.8) K/ul RBC (4.70-6.10) M/uL Hgb (14.0-18.0) g/dl Hct (42.0-52.0) % MCV (80.0-100.0) fL MCH (25.0-34.0) pg MCHC (32.0-36.0) g/dL RDW Std Deviation (36.4-46.3) fL RDW Coeff of Nabeel (11.5-14.5) % Plt Count (130-400) K/uL MPV (9.4-12.4) fL Sodium (136-145) mmol/L Potassium (3.5-5.1) mmol/L Chloride (98-107) mmol/L Carbon Dioxide (21-32) mmol/L Anion Gap (3-11) BUN (6-23) mg/dl Creatinine (0.6-1.4) mg/dl Est Cr Clr Drug Dosing ml/min Est GFR ( Amer) ml/min Est GFR (Non-Af Amer) ml/min BUN/Creatinine Ratio (10-20) Glucose (70-99(Fasting)) mg/dl POC Glucose 245 H (70-99) mg/dl Calcium (8.5-10.1) mg/dl Magnesium (1.7-2.4) mg/dl Total Bilirubin (0.2-1.0) mg/dl Direct Bilirubin (0-0.2) mg/dl AST (13-39) U/L ALT (7-52) U/L Alkaline Phosphatase (34-104) U/L Total Protein (6.0-8.3) gm/dl Albumin (3.4-5.0) gm/dl Cortisol AM Sample 9.40 (6.2-22.6) mcg/dl CMV IgM Ab Pending CMV IgG Ab/TORCH Pending EBV Capsid Ag IgG Ab EBV Capsid Ag IgM Ab EBV Nuclear Antigen Ab EBV Antibody Interp 07/15/22 07/15/22 07/15/22 Range/Units 08:29 08:29 08:01 WBC 3.48 L (4.8-10.8) K/ul RBC 3.05 L (4.70-6.10) M/uL Hgb 9.8 L (14.0-18.0) g/dl Hct 28.3 L (42.0-52.0) % MCV 92.8 (80.0-100.0) fL MCH 32.1 (25.0-34.0) pg MCHC 34.6 (32.0-36.0) g/dL RDW Std Deviation 51.2 H (36.4-46.3) fL RDW Coeff of Nabeel 15.0 H (11.5-14.5) % Plt Count 49 L (130-400) K/uL MPV 12.5 H (9.4-12.4) fL Sodium 133 L (136-145) mmol/L Potassium 4.1 (3.5-5.1) mmol/L Chloride 100 (98-107) mmol/L Carbon Dioxide 28 (21-32) mmol/L Anion Gap 5 (3-11) BUN 25 H (6-23) mg/dl Creatinine 1.13 (0.6-1.4) mg/dl Est Cr Clr Drug Dosing 82.9 ml/min Est GFR ( Amer) 82.0 ml/min Est GFR (Non-Af Amer) 70.8 ml/min BUN/Creatinine Ratio 22.1 H (10-20) Glucose 202 H (70-99(Fasting)) mg/dl POC Glucose 192 H (70-99) mg/dl Calcium 8.8 (8.5-10.1) mg/dl Magnesium 1.5 L (1.7-2.4) mg/dl Total Bilirubin 1.2 H (0.2-1.0) mg/dl Direct Bilirubin 0.4 H (0-0.2) mg/dl AST 54 H (13-39) U/L ALT 17 (7-52) U/L Alkaline Phosphatase 112 H (34-104) U/L Total Protein 6.2 (6.0-8.3) gm/dl Albumin 2.6 L (3.4-5.0) gm/dl Cortisol AM Sample (6.2-22.6) mcg/dl CMV IgM Ab CMV IgG Ab/TORCH EBV Capsid Ag IgG Ab EBV Capsid Ag IgM Ab EBV Nuclear Antigen Ab EBV Antibody Interp 07/14/22 07/14/22 07/14/22 Range/Units 20:47 17:31 09:27 WBC (4.8-10.8) K/ul RBC (4.70-6.10) M/uL Hgb (14.0-18.0) g/dl Hct (42.0-52.0) % MCV (80.0-100.0) fL MCH (25.0-34.0) pg MCHC (32.0-36.0) g/dL RDW Std Deviation (36.4-46.3) fL RDW Coeff of Nabeel (11.5-14.5) % Plt Count (130-400) K/uL MPV (9.4-12.4) fL Sodium (136-145) mmol/L Potassium (3.5-5.1) mmol/L Chloride (98-107) mmol/L Carbon Dioxide (21-32) mmol/L Anion Gap (3-11) BUN (6-23) mg/dl Creatinine (0.6-1.4) mg/dl Est Cr Clr Drug Dosing ml/min Est GFR ( Amer) ml/min Est GFR (Non-Af Amer) ml/min BUN/Creatinine Ratio (10-20) Glucose (70-99(Fasting)) mg/dl POC Glucose 115 H 107 H (70-99) mg/dl Calcium (8.5-10.1) mg/dl Magnesium (1.7-2.4) mg/dl Total Bilirubin (0.2-1.0) mg/dl Direct Bilirubin (0-0.2) mg/dl AST (13-39) U/L ALT (7-52) U/L Alkaline Phosphatase (34-104) U/L Total Protein (6.0-8.3) gm/dl Albumin (3.4-5.0) gm/dl Cortisol AM Sample (6.2-22.6) mcg/dl CMV IgM Ab CMV IgG Ab/TORCH EBV Capsid Ag IgG Ab Pending EBV Capsid Ag IgM Ab Pending EBV Nuclear Antigen Ab Pending EBV Antibody Interp Pending Diagnostic Findings Abdomen Ultrasound 07/15/22 09:30 US abdomen ltd ascites CLINICAL HISTORY: Evaluate for ascites. COMPARISON STUDY: CT of the abdomen and pelvis July 08, 2022 and abdominal ultrasound July 09, 2022. TECHNIQUE: Sonography of the abdomen and pelvis was performed to evaluate for ascites. FINDINGS: No ascites was identified within the abdomen or pelvis. The liver is cirrhotic. IMPRESSION: No ascites. ACT 112: Negative or not required by law. Electronically signed by: Remi Hernandez M.D. 07/15/2022 12:23 PM PG Care Time/CCT Total # of Minutes Spent Total Time Spent with Patient: Total time spent is greater than 50% in coordination of care (as documented) at patient's floor/unit and/or counseling patient: Coding Level of Care Code 04272 SUB INP/OBS CARE MIN Diagnoses Closed compression fracture of L1 vertebra S32.010A Encounter type: initial encounter Abdominal ascites R18.8 Hypomagnesemia E83.42 Alcohol abuse, in remission F10.11 COPD (chronic obstructive pulmonary disease) J44.9 Type 2 diabetes mellitus E11.9 Thrombocytopenia D69.6 Vitamin D deficiency E55.9 Lyme borreliosis A69.20 Compression fracture of L4 vertebra S32.040A (1) Closed compression fracture of L1 vertebra Encounter type: initial encounter Qualified Code(s): S32.010A - Wedge cari ella fracture of first lumbar vertebra, initial encounter for closed fracture
[2022-07-15] MEDS: DICLOFENAC SOD 1% GEL 100 GM TUBE EXT SCH ×4 (08:40→20:37)
[2022-07-15] MEDS: oxyCODONE HCL IR 5 MG TAB (IMMEDIATE RELEASE) PO PRN ×3 (08:42→20:45)
[2022-07-15 08:50] LABS: Hematocrit (blood only) 28.3 % (42.0-52.0); Hemoglobin 9.8 g/dl (14.0-18.0); Mean Corpuscular Hemoglobin 32.1 pg (25.0-34.0); Mean Corpuscular Hgb Conc 34.6 g/dL (32.0-36.0); Mean Corpuscular Volume 92.8 fL (80.0-100.0); Mean Platelet Volume 12.5 fL (9.4-12.4); Platelet Count 49 K/uL (130-400); RDW Standard Deviation 51.2 fL (36.4-46.3); Red Blood Count 3.05 M/uL (4.70-6.10); White Blood Count 3.48 K/ul (4.8-10.8)
[2022-07-15 09:15] LABS: Albumin Level 2.6 gm/dl (3.4-5.0); BUN Creatinine Ratio 22.1 (10-20); Bilirubin Direct 0.4 mg/dl (0-0.2); Bilirubin,Total 1.2 mg/dl (0.2-1.0); Calcium 8.8 mg/dl (8.5-10.1); Creatinine Clr Calc Pharmacy 82.9 ml/min; Est GFR (Non-African American) 70.8 ml/min; Magnesium 1.5 mg/dl (1.7-2.4); Potassium 4.1 mmol/L (3.5-5.1); Total Protein 6.2 gm/dl (6.0-8.3)
[2022-07-15] MEDS: DOXYCYCLINE HYCLATE 100 MG CAP PO SCH ×2 (09:17→20:37)
[2022-07-15] MEDS: BUMETANIDE 1 MG TAB PO SCH (09:17)
[2022-07-15] MEDS: MAGNESIUM CHLORIDE W/CALCIUM 64MG DELAYED REL TAB PO SCH ×2 (09:17→20:37)
[2022-07-15] MEDS: GABAPENTIN 800 MG TAB PO SCH ×3 (09:17→20:37)
[2022-07-15] MEDS: CALCIUM 600MG + VIT D 400 IU TAB PO SCH ×2 (09:17→20:37)
[2022-07-15] MEDS: PANTOprazole 40 MG TAB PO SCH ×2 (09:17→20:38)
[2022-07-15] MEDS: rifAXIMin 550 MG TABLET PO SCH ×2 (09:18→20:38)
[2022-07-15] MEDS: THIAMINE HCL 100 MG TAB PO SCH (09:18)
[2022-07-15] MEDS: SPIRONOLACTONE 100 MG TAB PO SCH (09:19)
[2022-07-15] MEDS: PROPRANOLOL HCL 10 MG TAB PO SCH ×2 (09:19→20:38)
[2022-07-15] MEDS: LACTULOSE SYRUP 20 GM/30 ML UDC PO SCH ×3 (09:19→20:37)
[2022-07-15] MEDS: CALCITONIN SALMON NA 200 IU/AC 3.7 ML BTL SCH (09:20)
[2022-07-15] MEDS: ASPIRIN 81 MG ECTAB PO SCH (09:20)
[2022-07-15] MEDS: CHOLECALCIFEROL 5,000 UNITS 125 MCG TAB PO SCH (09:20)
[2022-07-15] MEDS: LIDOCAINE 5% 1 PATCH TD SCH (09:20)
[2022-07-15] MEDS ORDERED: LORazepam 2 MG/1 ML VIAL IV STA (09:30)
[2022-07-15] MEDS: buprenorphine HCL 8 MG SUBL SL SCH ×3 (09:31→20:36)
[2022-07-15] MEDS: INSULIN ASPART PER UNIT SC SCH ×4 (09:43→20:49)
[2022-07-15] MEDS: MAGNESIUM SULFATE / D5W 1 GM/100 ML BAG IV SCH ×3 (09:50→14:25)
[2022-07-15] MEDS: HYDROmorphone INJ 0.5 MG/0.5 ML SYR IV PRN ×2 (10:40→18:24)
--- NOTE | 2022-07-15 12:25 | Ultrasound Report ---
US abdomen ltd ascites CLINICAL HISTORY: Evaluate for ascites. COMPARISON STUDY: CT of the abdomen and pelvis July 08, 2022 and abdominal ultrasound June 212022. TECHNIQUE: Sonography of the abdomen and pelvis was performed to evaluate for ascites. FINDINGS: No ascites was identified within the abdomen or pelvis. The liver is cirrhotic. IMPRESSION: No ascites. ACT 112: Negative or not required by law. Electronically signed by: Remi Hernandez M.D. 07/15/2022 12:23 PM
[2022-07-15] MEDS ORDERED: PHARMACY GLYCEMIC MGMT CONSULT PRN (13:33)
--- NOTE | 2022-07-15 14:31 | Pharmacy Report ---
Pharmacy Glycemic Short Note 2 - Date of Service July 15, 2022 - Glycemic Short BSG Results (Last 24 hours): 07/14/22 07/14/22 07/15/22 17:31 20:47 08:01 Glucose POC Glucose 107 H 115 H 192 H 07/15/22 07/15/22 08:29 12:19 Glucose 202 H POC Glucose 245 H OUTPATIENT ANTIDIABETIC REGIMEN: * Lantus 80 units SQ BID * Humalog 30 units SQ TID with meals ASSESSMENT: * 61 y/o M admitted for compression fractures due to recent falls. Patient with history of diabetes managed at home on basal and bolus insulins. * Patient has been here since 07/10/22 and was getting Lantus 40 units HS and N ovolog ACHS based on stress between 2 and 3. * BSGs have been well controlled on this dosing. * Today patient is now starting on IV Solumedrol 40 mg q6h for 5 doses. Expecting BSGs to trend up. Pharmacy is consulted for glycemic management. * For now, will continue basal Lantus the same since 40 units is above double stress of 2 and plan is for Solu-medrol to be discontinued in 24hrs. If fasting BSG is high tomorrow AM then will plan on adding some basal at that time. * Novolog goal range tightened slightly today so that he can get more correctional insulin. PLAN FOR INPATIENT GLYCEMIC CONTROL: * Basal insulin * Lantus 40 units SQ HS * Bolus insulin * NovoLog per scale ACHS or Q6hrs while NPO * Goal Range: Low 110 mg/dL - High 160 mg/dL * Correction Factor: 20 mg/dL/unit * Nutritional / Prandial insulin per carb ratio of 1 unit per 7 grams CHO consumed
[2022-07-15] MEDS: methylPREDNISolone 40 MG in SYRINGE 0 ML IV SCH ×2 (16:57→20:38)
[2022-07-15] MEDS: LANTUS PER UNIT CHARGE SQ SCH (20:50)
[2022-07-15] MEDS ORDERED: TORSEMIDE 10 MG TAB PO SCH (21:00)
[2022-07-16] MEDS: HYDROmorphone INJ 0.5 MG/0.5 ML SYR IV PRN ×2 (00:48→23:33)
[2022-07-16] MEDS: methylPREDNISolone 40 MG in SYRINGE 0 ML IV SCH ×3 (02:05→14:16)
--- NOTE | 2022-07-16 07:41 | Hospitalist Progress Note ---
Date of Service July 16, 2022 Assessment & Plan (1) Closed compression fracture of L1 vertebra: Plan: Likely 2/2 falling/sitting abruptly on toilet when walker slid out Imaging on admit with acute to subacute L1/L4 compression deformities (new from May 2022) Vit D low 16.2, replacement ordered Pain management consulted -- continue subutex, oxycodone prn, dilaudid for breakthrough also have topical voltaren, lidocaine patches, heating pad as needed for discomfort remains on his gabapentin 800mg TID, ?may need to reduce this w/ his hepatic impairment 300mg daily? -- appears to have been on for some time Orthotics consulted, provided TLSO brace, does report this helps Added IV steroids 07/15 for additional pain control, does report improvement and will continue for today and monitor, consider switching to taper tomorrow Going to check lumbar spine MRI for further information, however unclear if anyone would be able to intervene given other comorbidities Lyme IgG +, IgM negative -- patient did report multiple tick bites over last year with his dog and removal from scalp but never treated -- placed on Doxy BID and monitor WB testing PT/OT consulted, recs for rehab. 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 Cholelithiasis with unchanged gallbladder distention. 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 Healing subacute anterior rib fractures. Acute to subacute L1 and L4 compression deformities, new from May 21, 2022. Minimal associated retropulsion without high-grade central canal stenosis. Covered prior for SBP w/ Rocephin, fluid from 07/05 w/o growth or organism on GS and abd 07/09 small amt ascites Empiric abx stopped 07/11 RESUMED home rifaximin 550mg BID 07/12 -- if he doesn't have any at home will need new rx RUQ for elevated TB/ALP and RUQ w/ prior distention -> unchanged GB distention. Prior HIDA in fall negative. HIDA w/ EF for AM, GI to see today as well as requested and discussed with Dr Leach last evening Continues on bumex (switched to such from lasix last admission), spironolactone -- planning f/u [facility] but seen inpatient prior admit Given additional doses of bumex, Cr stable Discussed w/ patient and switched to torsemide 20mg PO BID, placed on hold for this morning (got dose evening 07/15) but ? consider once daily given suspected compliance issues at home. Repeat US limited without ascites to tap Bowel regimen -- reported LARGE BMs reported 07/15 , several -- had not moved them 07/14 -- lactulose increased to 30mg TID. Ammonia 68, KUB w/ continued stool burden, worse Discussed can contribute to worsening pain as well -- to limit IV opiates/increase ambulation. Declined lactulose enema and wanting to continue increased PO lactulose for now but if not moving by this afternoon would be agreeable hx hep C, untreated and needing f/u outpatient. [facility] is who should be reaching out to patient in next couple of days. # obtained by nurse navigator for his Liver Coordinator --Megan Smith @ [phone]. If patient deteriorates/needing transfer for such, to call [facility] doc-doc [phone] MELD score 26 on 07/15 Avoid hepatotoxins, dose meds appropriately as able Repeated Hep panel/CMV/EBV -- pending LFTs remain fairly stable and will monitor in AM If any worsening abdominal pain will need to consider repeat CTAP Appreciate additional recs by GI today (3) Hypomagnesemia: Plan: Chronic lows, ?2nd to PPI use IV replacement, switched to slow mag and started vit d supp Mag 1.7 and can continue PO supplementation for now monitor in AM (4) Alcohol abuse, in remission: Plan: In remission -- lapse of drinking in April but reports hasn't since that time Continue thiamine, added 07/13. b1 pending (5) COPD (chronic obstructive pulmonary disease): Plan: On chronic home O2 -- states he does have and uses at night/sleeping and when up/ambulating if having any difficulty but has been on room air recently (reported using at night) w/ additional bumex use which has been switched to torsemide Nebs PRN No exacerbation currently (6) Type 2 diabetes mellitus: Plan: Last A1c 9.8 but that WAS IN February --> repeated w/ AM labs and A1c down to 5.9 Pharmacy consulted given IV solumedrol for back pain as above BSGs elevated this morning, was given glargine 15u x1 NOW, appreciate continued glycemic management SSI Monitor BSGs (7) Thrombocytopenia: Plan: Stable, no active bleeding on admission or bleeding reported Plt are low, 2nd to cirrhosis --> ASA PLACED ON HOLD Monitor CBC in AM (8) Vitamin D deficiency: Plan: checked due to fractures low 16.2 -- replacement to be ordered and would continue at d/c. 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 CM to discuss parts counterman care/PCH/HH with patient given such Admission and Anticipated Discharge Date Admission Date: July 10, 2022 Supervising Physician Co-Signing Physician Notes The patient was not seen by me. The chart was reviewed. Case discussed with MARCELA Graves. Agree with assessment and plan Subjective patient evaluated this morning, KUB this morning w/ increased stool burden and discussed lactulose enema. States he would like to hold off as he had several LARGE formed bowel movements overnight and just took extra large dose of the la ctulose this morning.. Discussed if not moving 1-2 by afternoon would like to have him take one. He is agreeable. Continued RUQ discomfort. Back pain controlled/slightly improved per patient since starting steroids and will continue. Pharmacy consulted for glycemic management and discussed cause for elevated BSGs. He does state he has upcoming appointment with podiatry this coming week. Hx DVT on his left leg which he treated with multiple agents. Denied hx of trauma prior to such and reports it was related to his diabetes/neuropathy? Will check Venous Dopplers to r/o DVT given swelling in b/l legs, but swelling about the same w/ his cirrhosis reported. Results & Data Results & Data ([place]) Vital Signs (Past 12 Hours) Vital Signs O2 Del Method 07/15/22 22:53 Room Air Laboratory Results 07/16/22 07/16/22 07/16/22 Range/Units 12:15 12:14 11:21 WBC (4.8-10.8) K/ul RBC (4.70-6.10) M/uL Hgb (14.0-18.0) g/dl Hct (42.0-52.0) % MCV (80.0-100.0) fL MCH (25.0-34.0) pg MCHC (32.0-36.0) g/dL RDW Std Deviation (36.4-46.3) fL RDW Coeff of Nabeel (11.5-14.5) % Plt Count (130-400) K/uL MPV (9.4-12.4) fL Immature Gran % (Auto) % Neut % (Auto) % Lymph % (Auto) % Brooks % (Auto) % Eos % (Auto) % Baso % (Auto) % Neut # (Auto) (1.40-6.50) K/uL Lymph # (Auto) (1.2-3.4) K/uL Brooks # (Auto) (0.11-0.59) K/uL Eos # (Auto) (0-0.50) K/uL Baso # (Auto) (0-0.2) K/uL Immature Gran # (Auto) (0.01-0.20) K/uL PT (9.0-12.0) Seconds INR (0.9-1.1) Sodium (136-145) mmol/L Potassium (3.5-5.1) mmol/L Chloride (98-107) mmol/L Carbon Dioxide (21-32) mmol/L Anion Gap (3-11) BUN (6-23) mg/dl Creatinine (0.6-1.4) mg/dl Est Cr Clr Drug Dosing ml/min Est GFR ( Amer) ml/min Est GFR (Non-Af Amer) ml/min BUN/Creatinine Ratio (10-20) Glucose (70-99(Fasting)) mg/dl POC Glucose 362 H* 365 H* 353 H* (70-99) mg/dl Estimat Average Glucose mg/dl Hemoglobin A1c (4.5-5.6) % Calcium (8.5-10.1) mg/dl Magnesium (1.7-2.4) mg/dl Total Bilirubin (0.2-1.0) mg/dl AST (13-39) U/L ALT (7-52) U/L Alkaline Phosphatase (34-104) U/L Ammonia (18-72) umol/L Total Protein (6.0-8.3) gm/dl Albumin (3.4-5.0) gm/dl Globulin (2.5-4.0) gm/dl Albumin/Globulin Ratio (0.9-2) 07/16/22 07/16/22 07/16/22 Range/Units 08:01 07:40 07:40 WBC (4.8-10.8) K/ul RBC (4.70-6.10) M/uL Hgb (14.0-18.0) g/dl Hct (42.0-52.0) % MCV (80.0-100.0) fL MCH (25.0-34.0) pg MCHC (32.0-36.0) g/dL RDW Std Deviation (36.4-46.3) fL RDW Coeff of Nabeel (11.5-14.5) % Plt Count (130-400) K/uL MPV (9.4-12.4) fL Immature Gran % (Auto) % Neut % (Auto) % Lymph % (Auto) % Brooks % (Auto) % Eos % (Auto) % Baso % (Auto) % Neut # (Auto) (1.40-6.50) K/uL Lymph # (Auto) (1.2-3.4) K/uL Brooks # (Auto) (0.11-0.59) K/uL Eos # (Auto) (0-0.50) K/uL Baso # (Auto) (0-0.2) K/uL Immature Gran # (Auto) (0.01-0.20) K/uL PT (9.0-12.0) Seconds INR (0.9-1.1) Sodium (136-145) mmol/L Potassium (3.5-5.1) mmol/L Chloride (98-107) mmol/L Carbon Dioxide (21-32) mmol/L Anion Gap (3-11) BUN (6-23) mg/dl Creatinine (0.6-1.4) mg/dl Est Cr Clr Drug Dosing ml/min Est GFR ( Amer) ml/min Est GFR (Non-Af Amer) ml/min BUN/Creatinine Ratio (10-20) Glucose (70-99(Fasting)) mg/dl POC Glucose 347 H* (70-99) mg/dl Estimat Average Glucose 123 mg/dl Hemoglobin A1c 5.9 H (4.5-5.6) % Calcium (8.5-10.1) mg/dl Magnesium (1.7-2.4) mg/dl Total Bilirubin (0.2-1.0) mg/dl AST (13-39) U/L ALT (7-52) U/L Alkaline Phosphatase (34-104) U/L Ammonia 65.0 (18-72) umol/L Total Protein (6.0-8.3) gm/dl Albumin (3.4-5.0) gm/dl Globulin (2.5-4.0) gm/dl Albumin/Globulin Ratio (0.9-2) 07/16/22 07/16/22 07/16/22 Range/Units 07:40 07:40 07:40 WBC 3.63 L (4.8-10.8) K/ul RBC 3.08 L (4.70-6.10) M/uL Hgb 9.8 L (14.0-18.0) g/dl Hct 28.0 L (42.0-52.0) % MCV 90.9 (80.0-100.0) fL MCH 31.8 (25.0-34.0) pg MCHC 35.0 (32.0-36.0) g/dL RDW Std Deviation 47.8 H (36.4-46.3) fL RDW Coeff of Nabeel 14.4 (11.5-14.5) % Plt Count 42 L (130-400) K/uL MPV 13.2 H (9.4-12.4) fL Immature Gran % (Auto) 0.3 % Neut % (Auto) 87.9 % Lymph % (Auto) 9.9 % Brooks % (Auto) 1.9 % Eos % (Auto) 0.0 % Baso % (Auto) 0.0 % Neut # (Auto) 3.19 (1.40-6.50) K/uL Lymph # (Auto) 0.36 L (1.2-3.4) K/uL Brooks # (Auto) 0.07 L (0.11-0.59) K/uL Eos # (Auto) 0.00 (0-0.50) K/uL Baso # (Auto) 0.00 (0-0.2) K/uL Immature Gran # (Auto) 0.01 (0.01-0.20) K/uL PT 15.1 H (9.0-12.0) Seconds INR 1.4 H (0.9-1.1) Sodium 129 L (136-145) mmol/L Potassium 4.9 (3.5-5.1) mmol/L Chloride 98 (98-107) mmol/L Carbon Dioxide 25 (21-32) mmol/L Anion Gap 6 (3-11) BUN 33 H (6-23) mg/dl Creatinine 1.08 (0.6-1.4) mg/dl Est Cr Clr Drug Dosing 86.7 ml/min Est GFR ( Amer) 86.6 ml/min Est GFR (Non-Af Amer) 74.7 ml/min BUN/Creatinine Ratio 30.6 H (10-20) Glucose 377 H* (70-99(Fasting)) mg/dl POC Glucose (70-99) mg/dl Estimat Average Glucose mg/dl Hemoglobin A1c (4.5-5.6) % Calcium 9.3 (8.5-10.1) mg/dl Magnesium 1.7 (1.7-2.4) mg/dl Total Bilirubin 1.4 H (0.2-1.0) mg/dl AST 45 H (13-39) U/L ALT 17 (7-52) U/L Alkaline Phosphatase 125 H (34-104) U/L Ammonia (18-72) umol/L Total Protein 6.7 (6.0-8.3) gm/dl Albumin 2.9 L (3.4-5.0) gm/dl Globulin 3.8 (2.5-4.0) gm/dl Albumin/Globulin Ratio 0.8 L (0.9-2) 07/15/22 07/15/22 Range/Units 19:30 17:02 WBC (4.8-10.8) K/ul RBC (4.70-6.10) M/uL Hgb (14.0-18.0) g/dl Hct (42.0-52.0) % MCV (80.0-100.0) fL MCH (25.0-34.0) pg MCHC (32.0-36.0) g/dL RDW Std Deviation (36.4-46.3) fL RDW Coeff of Nabeel (11.5-14.5) % Plt Count (130-400) K/uL MPV (9.4-12.4) fL Immature Gran % (Auto) % Neut % (Auto) % Lymph % (Auto) % Brooks % (Auto) % Eos % (Auto) % Baso % (Auto) % Neut # (Auto) (1.40-6.50) K/uL Lymph # (Auto) (1.2-3.4) K/uL Brooks # (Auto) (0.11-0.59) K/uL Eos # (Auto) (0-0.50) K/uL Baso # (Auto) (0-0.2) K/uL Immature Gran # (Auto) (0.01-0.20) K/uL PT (9.0-12.0) Seconds INR (0.9-1.1) Sodium (136-145) mmol/L Potassium (3.5-5.1) mmol/L Chloride (98-107) mmol/L Carbon Dioxide (21-32) mmol/L Anion Gap (3-11) BUN (6-23) mg/dl Creatinine (0.6-1.4) mg/dl Est Cr Clr Drug Dosing ml/min Est GFR ( Amer) ml/min Est GFR (Non-Af Amer) ml/min BUN/Creatinine Ratio (10-20) Glucose (70-99(Fasting)) mg/dl POC Glucose 180 H 147 H (70-99) mg/dl Estimat Average Glucose mg/dl Hemoglobin A1c (4.5-5.6) % Calcium (8.5-10.1) mg/dl Magnesium (1.7-2.4) mg/dl Total Bilirubin (0.2-1.0) mg/dl AST (13-39) U/L ALT (7-52) U/L Alkaline Phosphatase (34-104) U/L Ammonia (18-72) umol/L Total Protein (6.0-8.3) gm/dl Albumin (3.4-5.0) gm/dl Globulin (2.5-4.0) gm/dl Albumin/Globulin Ratio (0.9-2) Diagnostic Findings KUB X-Ray 07/16/22 08:00 KUB CLINICAL HISTORY: Evaluate constipation. COMPARISON STUDY: CT of the abdomen and pelvis July 08, 2022. FINDINGS: There is no evidence for a bowel obstruction. Moderate amount of stool within the colon and rectum has increased since prior CT. There is no evidence for free air on this supine exam. No urinary calculi are identified. IMPRESSION: 1. No evidence for a bowel obstruction. 2. Increase in a moderate amount of stool within the colon and rectum since prior CT. ACT 112: Negative or not required by law. Electronically signed by: Remi Hernandez M.D. 07/16/2022 9:35 AM Venous Doppler Study 07/16/22 10:00 BILATERAL LOWER EXTREMITY VENOUS DOPPLER HISTORY: Bilateral leg erythema/swelling, r/o DVT COMPARISON STUDY: None. FINDINGS: There is normal compressibility, flow, and augmentation within the bilateral lower extremity deep venous systems. IMPRESSION: No DVT within the right or left lower extremity. ACT 112: Negative or not required by law. Electronically signed by: James Lemus M.D. 07/16/2022 11:34 AM PG Care Time/CCT Total # of Minutes Spent Total Time Spent with Patient: Total time spent is greater than 50% in coordination of care (as documented) at patient's floor/unit and/or counseling patient: Coding Level of Care Code 40530 SUB INP/OBS CARE 3/50MIN Diagnoses Closed compression fracture of L1 vertebra S32.010A Encounter type: initial encounter Abdominal ascites R18.8 Hypomagnesemia E83.42 Alcohol abuse, in remission F10.11 COPD (chronic obstructive pulmonary disease) J44.9 Type 2 diabetes mellitus E11.9 Thrombocytopenia D69.6 Vitamin D deficiency E55.9 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
[2022-07-16 08:01] LABS: Hemoglobin 9.8 g/dl (14.0-18.0); Immature Granulocytes # (auto) 0.01 K/uL (0.01-0.20); Immature Granulocytes % (auto) 0.3 %; Lymphocytes # (auto) 0.36 K/uL (1.2-3.4); Lymphocytes % (auto) 9.9 %; Mean Corpuscular Hemoglobin 31.8 pg (25.0-34.0); Mean Corpuscular Volume 90.9 fL (80.0-100.0); Mean Platelet Volume 13.2 fL (9.4-12.4); Monocytes # (auto) 0.07 K/uL (0.11-0.59); Monocytes % (auto) 1.9 %; Neutrophils # (auto) 3.19 K/uL (1.40-6.50); Neutrophils % (auto) 87.9 %; Platelet Count 42 K/uL (130-400); RDW Coefficient of Variation 14.4 % (11.5-14.5); RDW Standard Deviation 47.8 fL (36.4-46.3); Red Blood Count 3.08 M/uL (4.70-6.10); White Blood Count 3.63 K/ul (4.8-10.8)
[2022-07-16] MEDS: PROPRANOLOL HCL 10 MG TAB PO SCH ×2 (08:15→21:14)
[2022-07-16] MEDS: GABAPENTIN 800 MG TAB PO SCH ×3 (08:16→21:13)
[2022-07-16] MEDS: CHOLECALCIFEROL 5,000 UNITS 125 MCG TAB PO SCH (08:17)
[2022-07-16] MEDS: MAGNESIUM CHLORIDE W/CALCIUM 64MG DELAYED REL TAB PO SCH ×2 (08:17→21:13)
[2022-07-16] MEDS: DOXYCYCLINE HYCLATE 100 MG CAP PO SCH ×2 (08:17→21:14)
[2022-07-16] MEDS: PANTOprazole 40 MG TAB PO SCH ×2 (08:17→21:14)
[2022-07-16] MEDS: SPIRONOLACTONE 100 MG TAB PO SCH (08:18)
[2022-07-16] MEDS: rifAXIMin 550 MG TABLET PO SCH ×2 (08:19→21:14)
[2022-07-16] MEDS: THIAMINE HCL 100 MG TAB PO SCH (08:19)
[2022-07-16 08:26] LABS: INR 1.4 (0.9-1.1); Prothrombin Time 15.1 Seconds (9.0-12.0)
[2022-07-16] MEDS: LACTULOSE SYRUP 20 GM/30 ML UDC PO SCH ×3 (08:30→20:20)
[2022-07-16 08:40] LABS: Albumin Globulin Ratio 0.8 (0.9-2); Albumin Level 2.9 gm/dl (3.4-5.0); BUN Creatinine Ratio 30.6 (10-20); Bilirubin,Total 1.4 mg/dl (0.2-1.0); Calcium 9.3 mg/dl (8.5-10.1); Creatinine Clr Calc Pharmacy 86.7 ml/min; Est GFR (African American) 86.6 ml/min; Est GFR (Non-African American) 74.7 ml/min; Globulin 3.8 gm/dl (2.5-4.0); Magnesium 1.7 mg/dl (1.7-2.4); Potassium 4.9 mmol/L (3.5-5.1); Total Protein 6.7 gm/dl (6.0-8.3)
[2022-07-16] MEDS: INSULIN ASPART PER UNIT SC SCH ×5 (08:49→21:52)
[2022-07-16] MEDS: buprenorphine HCL 8 MG SUBL SL SCH ×3 (08:49→21:13)
[2022-07-16] MEDS: DICLOFENAC SOD 1% GEL 100 GM TUBE EXT SCH ×4 (08:59→21:14)
[2022-07-16] MEDS ORDERED: LANTUS PER UNIT CHARGE SQ SCH (09:00)
[2022-07-16] MEDS: LIDOCAINE 5% 1 PATCH TD SCH (09:01)
--- NOTE | 2022-07-16 09:36 | XRay Report ---
KUB CLINICAL HISTORY: Evaluate constipation. COMPARISON STUDY: CT of the abdomen and pelvis July 08, 2022. FINDINGS: There is no evidence for a bowel obstruction. Moderate amount of stool within the colon and rectum has increased since prior CT. There is no evidence for free air on this supine exam. No urina ry calculi are identified. IMPRESSION: 1. No evidence for a bowel obstruction. 2. Increase in a moderate amount of stool within the colon and rectum since prior CT. ACT 112: Negative or not required by law. Electronically signed by: Remi Hernandez M.D. 07/16/2022 9:35 AM
[2022-07-16] MEDS ORDERED: LACTULOSE 200GM/700ML WTR ENEMA PR ONE (09:47)
[2022-07-16 11:16] LABS: Estimated Average Glucose 123 mg/dl; Hemoglobin A1C 5.9 % (4.5-5.6)
--- NOTE | 2022-07-16 11:35 | Ultrasound Report ---
BILATERAL LOWER EXTREMITY VENOUS DOPPLER HISTORY: Bilateral leg erythema/swelling, r/o DVT COMPARISON STUDY: None. FINDINGS: There is normal compressibility, flow, and augmentation within the bilateral lower extremit y deep venous systems. IMPRESSION: No DVT within the right or left lower extremity. ACT 112: Negative or not required by law. Electronically signed by: James Lemus M.D. 07/16/2022 11:34 AM
[2022-07-16] MEDS ORDERED: INSULIN HUMAN REGULAR PER UNIT 5 UNITS in SYRINGE 4.95 ML IV SCH (11:45)
[2022-07-16] MEDS: CALCIUM 600MG + VIT D 400 IU TAB PO SCH ×2 (12:05→21:13)
--- NOTE | 2022-07-16 13:35 | Gastroenterology Progress Note ---
Date of Service July 16, 2022 Assessment & Plan (1) History of heroin abuse: (2) Chronic hepatitis C with cirrhosis: (3) Alcohol use: (4) Abdominal pain: Plan: Feeling better today, with no complaints of abdominal pain Continue current therapy and supportive care Will need outpatient followup with Hepatology Admission and Anticipated Discharge Date Admission Date: July 10, 2022 Subjective Chuck states he has no abdominal pain this AM. States he is tolerating PO intake. He denies any fevers, chills, nausea or vomiting. Still with complaints of back pain, but improved. Had multiple large BM's overnight. Review of Systems Review of Systems: All systems reviewed & are unremarkable except as noted in Subjective Physical Exam Constitutional: no acute distress and not ill appearing Respiratory: normal respiratory effort, lungs clear to auscultation Cardiovascular: RRR, no murmur, no edema Gastrointestinal (Abdomen): Inspection/Auscultation: abdomen normal to inspection and normal bowel sounds Percussion/Palpation: abdomen soft; abdomen nontender, no guarding and abdomen not rigid Psychiatric: A+Ox3, euthymic affect Results & Data Results & Data ([facility]) Vital Signs (Past 12 Hours) Vital Signs Temp Pulse Resp BP Pulse Ox O2 Del Method 07/16/22 08:00 36.7 C 69 16 102/52 L 92 Room Air PG Care Time/CCT Total # of Minutes Spent Total Time Spent with Patient: Total time spent is greater than 50% in coordination of care (as documented) at patient's floor/unit and/or counseling patient: Coding Level of Care Code 93900 SUB INP/OBS CARE 2/35MIN Diagnoses History of heroin abuse F11.11 Chronic hepatitis C with cirrhosis B18.2; K74.60 Alcohol use Z78.9 Abdominal pain R10.9
--- NOTE | 2022-07-16 14:39 | Pharmacy Report ---
Pharmacy Glycemic Short Note 2 - Date of Service July 16, 2022 - Glycemic Short BSG Results (Last 24 hours): 07/15/22 07/15/22 07/16/22 17:02 19:30 07:40 Glucose 377 H* POC Glucose 147 H 180 H 07/16/22 07/16/22 07/16/22 08:01 11:21 12:14 Glucose POC Glucose 347 H* 353 H* 365 H* 07/16/22 12:15 Glucose POC Glucose 362 H* OUTPATIENT ANTIDIABETIC REGIMEN: * Lantus 80 units SQ BID * Humalog 30 units SQ TID with meals ASSESSMENT: 07/16: * Patient received 70 units of total insulin yesterday; 40 units basal + 30 units bolus. * Last night BSGs had trended down to 147 mg/dl at dinner, 180 mg/dl at HS. * With continued IV Solu-medrol doses q6h, fasting BSG this morning was high at 377 mg/dl. Additional dose of Lantus 15 units given this morning based on stress of 2. * Pre-lunch BSG was also above 300 mg/dl. IV regular insulin 5 units was given at this time. Novolog parameters tightened further with dinner. * Last dose of IV Solu medrol is today at 3 pm. Expect BSGs to trend down this evening. * Basal Lantus dose at HS continued the same. 07/15/22: * 61 y/o M admitted for compression fractures due to recent falls. Patient with history of diabetes managed at home on basal and bolus insulins. * Patient has been here since 07/10/22 and was getting Lantus 40 units HS and Novolog ACHS based on stress between 2 and 3. * BSGs have been well controlled on this dosing. * Today patient is now starting on IV Solumedrol 40 mg q6h for 5 doses. Expecting BSGs to trend up. Pharmacy is consulted for glycemic management. * For now, will continue basal Lantus the same since 40 units is above double stress of 2 and plan is for Solu-medrol to be discontinued in 24hrs. If fasting BSG is high tomorrow AM then will plan on adding some basal at that ti me. * Novolog goal range tightened slightly today so that he can get more correctional insulin. PLAN FOR INPATIENT GLYCEMIC CONTROL: * Basal insulin * Lantus 40 units SQ HS * Lantus 15 units SQ today AM x1 * Bolus insulin * NovoLog per scale ACHS or Q6hrs while NPO * Goal Range: Low 110 mg/dL - High 160 mg/dL * Correction Factor: 15 mg/dL/unit * Nutritional / Prandial insulin per carb ratio of 1 unit per 6 grams CHO consumed
[2022-07-16] MEDS ORDERED: LORazepam 2 MG/1 ML VIAL IV ONE ×2 (17:49→20:00)
[2022-07-16] MEDS ORDERED: STAT IV STA (17:54)
[2022-07-16] MEDS ORDERED: INSULIN PROTOCOL GOAL RANGE ONE (17:54)
[2022-07-16] MEDS ORDERED: SEVERE STRESS LEVEL ONE (17:54)
[2022-07-16] MEDS ORDERED: INSULIN HUMAN REGULAR PER IV ONE ×2 (18:15→18:30)
[2022-07-16] MEDS ORDERED: INSULIN REGULAR 250 UNITS in SODIUM CHLORIDE 0.9% 247.5 ML IV SCH (18:15)
[2022-07-16] MEDS: oxyCODONE HCL IR 5 MG TAB (IMMEDIATE RELEASE) PO PRN (19:20)
[2022-07-16] MEDS ORDERED: LORazepam 2 MG/1 ML VIAL IV STA (19:56)
[2022-07-16] MEDS: LANTUS PER UNIT CHARGE SQ SCH (21:13)
[2022-07-17 07:06] LABS: Hematocrit (blood only) 28.2 % (42.0-52.0); Mean Corpuscular Hemoglobin 31.5 pg (25.0-34.0); Mean Corpuscular Hgb Conc 35.5 g/dL (32.0-36.0); Mean Platelet Volume 12.5 fL (9.4-12.4); Platelet Count 53 K/uL (130-400); RDW Coefficient of Variation 14.2 % (11.5-14.5); Red Blood Count 3.17 M/uL (4.70-6.10); White Blood Count 8.48 K/ul (4.8-10.8)
[2022-07-17 07:22] LABS: Albumin Level 2.9 gm/dl (3.4-5.0); BUN Creatinine Ratio 33.7 (10-20); Bilirubin Direct 0.5 mg/dl (0-0.2); Bilirubin,Total 1.4 mg/dl (0.2-1.0); Calcium 9.8 mg/dl (8.5-10.1); Creatinine Clr Calc Pharmacy 105.2 ml/min; Est GFR (African American) 108.5 ml/min; Est GFR (Non-African American) 93.6 ml/min; Magnesium 1.7 mg/dl (1.7-2.4); Total Protein 6.7 gm/dl (6.0-8.3)
[2022-07-17 07:32] LABS: INR 1.4 (0.9-1.1); Prothrombin Time 15.1 Seconds (9.0-12.0)
--- NOTE | 2022-07-17 07:34 | Hospitalist Progress Note ---
Date of Service July 17, 2022 Assessment & Plan (1) Closed compression fracture of L1 vertebra: Plan: Likely 2/2 falling/sitting abruptly on toilet when walker slid out Imaging on admit with acute to subacute L1/L4 compression deformities (new from May 2022) Vit D low 16.2, replacement ordered Pain management consulted -- continue subutex, oxycodone prn, dilaudid for breakthrough -- also have topical voltaren, lidocaine patches, heating pad as needed for discomfort -- remains on his gabapentin 800mg TID, ?may need to reduce this w/ his hepatic impairment 300mg daily? -- appears to have been on for some time -- Orthotics consulted, provided TLSO brace, does report this helps Added IV steroids 07/15 for additional pain control, does report improvement -->placed on prednisone 50mg for today and if continues effective would taper at d/c Lumbar MRI pending -- Dr Webster available tomorrow for review Lyme IgG +, IgM negative-- patient did report multiple tick bites over last year with his dog and removal from scalp but never treated -- placed on Doxy BID and monitor WB testing PT/OT consulted, recs for rehab. P2p completed and they denied. 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 [facility] is who should be reaching out to patient in next couple of days. # obtained by nurse navigator for his Liver Coordinator --Megan Smith @ [phone]. If patient deteriorates/needing transfer for such, to call [facility] doc-doc [phone] CTAP on admit w/o bowel obstruction, did note cirrhosis w/ stigmata of portal venous hypertension including splenomegaly, abdominal varicosities with ascites. Cholelithiasis with unchanged gallbladder distention. 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 Healing subacute anterior rib fractures. Acute to subacute L1 and L4 compression deformities, new from May 21, 2022. Minimal associated retropulsion without high-grade central canal stenosis. Covered prior for SBP w/ Rocephin, fluid from 07/05 w/o growth or organism on GS and abd 07/09 small amt ascites Empiric abx stopped 07/11 RESUMED home rifaximin 550mg BID 07/12 RUQ US GB distension HIDA w/ normal EF Switched bumex to torsemide 20mg BID but changed to once daily, resumed this morning Remains on spironolactone 100mg daily, hold for AM given K 5 and will change to low K diet Bowel regimen -- lactulose increased to 30mg TID -- LARGE BM x 2 reported. Increase further if needed Hepatits panel/CMV/EBV pending LFTs stable around baseline Outpt GI/hepatology f/u (3) Hypomagnesemia: Plan: Chronic lows, ?2nd to PPI use IV replacement, switched to slow mag and started vit d supp Mag 1.7 and can continue PO supplementation for now monitor in AM (4) Alcohol abuse, in remission: Plan: In remission -- lapse of drinking in April but reports hasn't since that time Continue thiamine, added 07/13. b1 pending (5) COPD (chronic obstructive pulmonary disease): Plan: On chronic home O2 -- states he does have and uses at night/sleeping and when up/ambulating if having any difficulty but has been on room air recently (reported using at night) w/ additional bumex use which has been switched to torsemide Nebs PRN No exacerbation currently, 94% on RA CXR improved interstitial edema since switching to torsemide and would continue at d/c in place of bumex (6) Type 2 diabetes mellitus: Plan: Last A1c 9.8 but that WAS IN February --> repeated w/ AM labs and A1c down to 5.9 Pharmacy consulted given IV solumedrol for back pain as above BSG elevation 07/16, 2nd to IV solumedrol Insulin gtt overnight, discontinued, prednisone 50mg today and planned taper Continued glycemic management appreciated Monitor BSGs, most recently 118 (7) Thrombocytopenia: Plan: Stable, no active bleeding on admission or bleeding reported Plt are low, 2nd to cirrhosis --> ASA PLACED ON HOLD and plt improved/stable Monitor on repeat (8) Vitamin D deficiency: Plan: checked due to fractures low 16.2 -- replacement to be ordered and would continue at d/c. may benefit from calcitriol due to underlying liver disease but can monitor response to russell tment (9) Lyme borreliosis: Plan: possible, reported multiple tick bites at home that he thought were scabs initially however pulled off and were ticks over past couple months, never got a rash started empiric doxy BID 07/13 and monitor WB testing (10) Compression fracture of L4 vertebra: Plan: as above, pain control and therapy, TLSO brace Plan continued inpatient stay, but going to be d/c w/ HH as p2p denied and not wanting [facility]/LTC Patient hopeful for d/c tomorrow depending pain control Dr Webster available to review MRI tomorrow Admission and Anticipated Discharge Date Admission Date: July 10, 2022 Supervising Physician Co-Signing Physician Notes PA Supervision Note: I did not personally see or examine the patient today, but I verified all pichardo points of MARECLA Vera's assessment and plan with the following exceptions/additions: COuld consider adding calcitonin nasal spray for pain of compression fracture Subjective eval this afternoon, standing up and making his bed states his pain was pretty good overnight but after MRI having increased pain to lumbar and lower spine from transfer onto table. reporting burning in his stomach, epigastric region. did get dose pepcid this morning and no longer reporting any issues and will monitor as just got his prednisone about 10 minutes ago and hadn't gotten anything since yesterday, hopefully will help as well. BSGs improved no longer on insulin gtt, hopefully switch to PO steroids will help. MRI not yet read but Dr Webster to be able to review tomorrow if any issues. No lightheadedness/dizziness. Reports LARGE BM lasting about 10min continuous, formed. smaller loose one. continues on increased lactulose. anticipating d/c tomorrow as long as MRI w/o acute abn requiring intervention. questions/concerns addressed at this time. Physical Exam Physical Exam: General: chronically ill appearing male making his bed, reporting pain after getting back from MRI but no acute distress HEENT: head normocephalic, atraumatic, mm moist,+facial hair, ponytail, poor dentition Resp: improved effort, no obvious w/c, on room air CV: RR, no significant m/g, trace pedal edema GI: +BS, distension (less), RUQ tenderness to palpation unchanged MSK/Neuro: tender to palpation lumbar spine as well as thoracic spine/paraspinal muscle tenderness, no decreased strength unilaterally, heating bad to low back currently Psych: Alert/oriented to person/place, cooperative with care Results & Data Results & Data ([facility]) Vital Signs (Past 12 Hours) Vital Signs Temp Pulse Resp BP Pulse Ox O2 Del Method O2 Flow Rate 07/16/22 21:25 Nasal Cannula 2 07/16/22 20:42 36.6 C 71 16 137/67 94 Nasal Cannula 2 Laboratory Results 07/17/22 07/17/22 07/17/22 Range/Units 07:30 07:00 06:23 WBC (4.8-10.8) K/ul RBC (4.70-6.10) M/uL Hgb (14.0-18.0) g/dl Hct (42.0-52.0) % MCV (80.0-100.0) fL MCH (25.0-34.0) pg MCHC (32.0-36.0) g/dL RDW Std Deviation (36.4-46.3) fL RDW Coeff of Nabeel (11.5-14.5) % Plt Count (130-400) K/uL MPV (9.4-12.4) fL Immature Gran % (Auto) % Neut % (Auto) % Lymph % (Auto) % [place] % (Auto) % Eos % (Auto) % Baso % (Auto) % Neut # (Auto) (1.40-6.50) K/uL Lymph # (Auto) (1.2-3.4) K/uL [place] # (Auto) (0.11-0.59) K/uL Eos # (Auto) (0-0.50) K/uL Baso # (Auto) (0-0.2) K/uL Immature Gran # (Auto) (0.01-0.20) K/uL PT (9.0-12.0) Seconds INR (0.9-1.1) Sodium 132 L (136-145) mmol/L Potassium 5.0 (3.5-5.1) mmol/L Chloride 101 (98-107) mmol/L Carbon Dioxide 27 (21-32) mmol/L Anion Gap 4 (3-11) BUN 30 H (6-23) mg/dl Creatinine 0.89 (0.6-1.4) mg/dl Est Cr Clr Drug Dosing 105.2 ml/min Est GFR ( Amer) 108.5 ml/min Est GFR (Non-Af Amer) 93.6 ml/min BUN/Creatinine Ratio 33.7 H (10-20) Glucose 118 H (70-99(Fasting)) mg/dl POC Glucose 104 H 108 H (70-99) mg/dl Estimat Average Glucose mg/dl Hemoglobin A1c (4.5-5.6) % Calcium 9.8 (8.5-10.1) mg/dl Magnesium 1.7 (1.7-2.4) mg/dl Total Bilirubin 1.4 H (0.2-1.0) mg/dl Direct Bilirubin 0.5 H (0-0.2) mg/dl AST 34 (13-39) U/L ALT 15 (7-52) U/L Alkaline Phosphatase 128 H (34-104) U/L Ammonia (18-72) umol/L Total Protein 6.7 (6.0-8.3) gm/dl Albumin 2.9 L (3.4-5.0) gm/dl Globulin (2.5-4.0) gm/dl Albumin/Globulin Ratio (0.9-2) 07/17/22 07/17/22 07/17/22 Range/Units 06:23 06:23 06:01 WBC 8.48 (4.8-10.8) K/ul RBC 3.17 L (4.70-6.10) M/uL Hgb 10.0 L (14.0-18.0) g/dl Hct 28.2 L (42.0-52.0) % MCV 89.0 (80.0-100.0) fL MCH 31.5 (25.0-34.0) pg MCHC 35.5 (32.0-36.0) g/dL RDW Std Deviation 46.0 (36.4-46.3) fL RDW Coeff of Nabeel 14.2 (11.5-14.5) % Plt Count 53 L (130-400) K/uL MPV 12.5 H (9.4-12.4) fL Immature Gran % (Auto) % Neut % (Auto) % Lymph % (Auto) % [place] % (Auto) % Eos % (Auto) % Baso % (Auto) % Neut # (Auto) (1.40-6.50) K/uL Lymph # (Auto) (1.2-3.4) K/uL [place] # (Auto) (0.11-0.59) K/uL Eos # (Auto) (0-0.50) K/uL Baso # (Auto) (0-0.2) K/uL Immature Gran # (Auto) (0.01-0.20) K/uL PT 15.1 H (9.0-12.0) Seconds INR 1.4 H (0.9-1.1) Sodium (136-145) mmol/L Potassium (3.5-5.1) mmol/L Chloride (98-107) mmol/L Carbon Dioxide (21-32) mmol/L Anion Gap (3-11) BUN (6-23) mg/dl Creatinine (0.6-1.4) mg/dl Est Cr Clr Drug Dosing ml/min Est GFR ( Amer) ml/min Est GFR (Non-Af Amer) ml/min BUN/Creatinine Ratio (10-20) Glucose (70-99(Fasting)) mg/dl POC Glucose 122 H (70-99) mg/dl Estimat Average Glucose mg/dl Hemoglobin A1c (4.5-5.6) % Calcium (8.5-10.1) mg/dl Magnesium (1.7-2.4) mg/dl Total Bilirubin (0.2-1.0) mg/dl Direct Bilirubin (0-0.2) mg/dl AST (13-39) U/L ALT (7-52) U/L Alkaline Phosphatase (34-104) U/L Ammonia (18-72) umol/L Total Protein (6.0-8.3) gm/dl Albumin (3.4-5.0) gm/dl Globulin (2.5-4.0) gm/dl Albumin/Globulin Ratio (0.9-2) 07/17/22 07/17/22 07/17/22 Range/Units 05:01 04:04 03:02 WBC (4.8-10.8) K/ul RBC (4.70-6.10) M/uL Hgb (14.0-18.0) g/dl Hct (42.0-52.0) % MCV (80.0-100.0) fL MCH (25.0-34.0) pg MCHC (32.0-36.0) g/dL RDW Std Deviation (36.4-46.3) fL RDW Coeff of Nabeel (11.5-14.5) % Plt Count (130-400) K/uL MPV (9.4-12.4) fL Immature Gran % (Auto) % Neut % (Auto) % Lymph % (Auto) % [place] % (Auto) % Eos % (Auto) % Baso % (Auto) % Neut # (Auto) (1.40-6.50) K/uL Lymph # (Auto) (1.2-3.4) K/uL [place] # (Auto) (0.11-0.59) K/uL Eos # (Auto) (0-0.50) K/uL Baso # (Auto) (0-0.2) K/uL Immature Gran # (Auto) (0.01-0.20) K/uL PT (9.0-12.0) Seconds INR (0.9-1.1) Sodium (136-145) mmol/L Potassium (3.5-5.1) mmol/L Chloride (98-107) mmol/L Carbon Dioxide (21-32) mmol/L Anion Gap (3-11) BUN (6-23) mg/dl Creatinine (0.6-1.4) mg/dl Est Cr Clr Drug Dosing ml/min Est GFR ( Amer) ml/min Est GFR (Non-Af Amer) ml/min BUN/Creatinine Ratio (10-20) Glucose (70-99(Fasting)) mg/dl POC Glucose 142 H 165 H 192 H (70-99) mg/dl Estimat Average Glucose mg/dl Hemoglobin A1c (4.5-5.6) % Calcium (8.5-10.1) mg/dl Magnesium (1.7-2.4) mg/dl Total Bilirubin (0.2-1.0) mg/dl Direct Bilirubin (0-0.2) mg/dl AST (13-39) U/L ALT (7-52) U/L Alkaline Phosphatase (34-104) U/L Ammonia (18-72) umol/L Total Protein (6.0-8.3) gm/dl Albumin (3.4-5.0) gm/dl Globulin (2.5-4.0) gm/dl Albumin/Globulin Ratio (0.9-2) 07/17/22 07/17/22 07/16/22 Range/Units 01:57 00:49 23:50 WBC (4.8-10.8) K/ul RBC (4.70-6.10) M/uL Hgb (14.0-18.0) g/dl Hct (42.0-52.0) % MCV (80.0-100.0) fL MCH (25.0-34.0) pg MCHC (32.0-36.0) g/dL RDW Std Deviation (36.4-46.3) fL RDW Coeff of Nabeel (11.5-14.5) % Plt Count (130-400) K/uL MPV (9.4-12.4) fL Immature Gran % (Auto) % Neut % (Auto) % Lymph % (Auto) % [place] % (Auto) % Eos % (Auto) % Baso % (Auto) % Neut # (Auto) (1.40-6.50) K/uL Lymph # (Auto) (1.2-3.4) K/uL [place] # (Auto) (0.11-0.59) K/uL Eos # (Auto) (0-0.50) K/uL Baso # (Auto) (0-0.2) K/uL Immature Gran # (Auto) (0.01-0.20) K/uL PT (9.0-12.0) Seconds INR (0.9-1.1) Sodium (136-145) mmol/L Potassium (3.5-5.1) mmol/L Chloride (98-107) mmol/L Carbon Dioxide (21-32) mmol/L Anion Gap (3-11) BUN (6-23) mg/dl Creatinine (0.6-1.4) mg/dl Est Cr Clr Drug Dosing ml/min Est GFR ( Amer) ml/min Est GFR (Non-Af Amer) ml/min BUN/Creatinine Ratio (10-20) Glucose (70-99(Fasting)) mg/dl POC Glucose 246 H 241 H 290 H (70-99) mg/dl Estimat Average Glucose mg/dl Hemoglobin A1c (4.5-5.6) % Calcium (8.5-10.1) mg/dl Magnesium (1.7-2.4) mg/dl Total Bilirubin (0.2-1.0) mg/dl Direct Bilirubin (0-0.2) mg/dl AST (13-39) U/L ALT (7-52) U/L Alkaline Phosphatase (34-104) U/L Ammonia (18-72) umol/L Total Protein (6.0-8.3) gm/dl Albumin (3.4-5.0) gm/dl Globulin (2.5-4.0) gm/dl Albumin/Globulin Ratio (0.9-2) 07/16/22 07/16/22 07/16/22 Range/Units 22:51 21:30 20:30 WBC (4.8-10.8) K/ul RBC (4.70-6.10) M/uL Hgb (14.0-18.0) g/dl Hct (42.0-52.0) % MCV (80.0-100.0) fL MCH (25.0-34.0) pg MCHC (32.0-36.0) g/dL RDW Std Deviation (36.4-46.3) fL RDW Coeff of Nabeel (11.5-14.5) % Plt Count (130-400) K/uL MPV (9.4-12.4) fL Immature Gran % (Auto) % Neut % (Auto) % Lymph % (Auto) % [place] % (Auto) % Eos % (Auto) % Baso % (Auto) % Neut # (Auto) (1.40-6.50) K/uL Lymph # (Auto) (1.2-3.4) K/uL [place] # (Auto) (0.11-0.59) K/uL Eos # (Auto) (0-0.50) K/uL Baso # (Auto) (0-0.2) K/uL Immature Gran # (Auto) (0.01-0.20) K/uL PT (9.0-12.0) Seconds INR (0.9-1.1) Sodium (136-145) mmol/L Potassium (3.5-5.1) mmol/L Chloride (98-107) mmol/L Carbon Dioxide (21-32) mmol/L Anion Gap (3-11) BUN (6-23) mg/dl Creatinine (0.6-1.4) mg/dl Est Cr Clr Drug Dosing ml/min Est GFR ( Amer) ml/min Est GFR (Non-Af Amer) ml/min BUN/Creatinine Ratio (10-20) Glucose (70-99(Fasting)) mg/dl POC Glucose 316 H* 356 H* 372 H* (70-99) mg/dl Estimat Average Glucose mg/dl Hemoglobin A1c (4.5-5.6) % Calcium (8.5-10.1) mg/dl Magnesium (1.7-2.4) mg/dl Total Bilirubin (0.2-1.0) mg/dl Direct Bilirubin (0-0.2) mg/dl AST (13-39) U/L ALT (7-52) U/L Alkaline Phosphatase (34-104) U/L Ammonia (18-72) umol/L Total Protein (6.0-8.3) gm/dl Albumin (3.4-5.0) gm/dl Globulin (2.5-4.0) gm/dl Albumin/Globulin Ratio (0.9-2) 07/16/22 07/16/22 07/16/22 Range/Units 19:30 17:04 16:59 WBC (4.8-10.8) K/ul RBC (4.70-6.10) M/uL Hgb (14.0-18.0) g/dl Hct (42.0-52.0) % MCV (80.0-100.0) fL MCH (25.0-34.0) pg MCHC (32.0-36.0) g/dL RDW Std Deviation (36.4-46.3) fL RDW Coeff of Nabeel (11.5-14.5) % Plt Count (130-400) K/uL MPV (9.4-12.4) fL Immature Gran % (Auto) % Neut % (Auto) % Lymph % (Auto) % [place] % (Auto) % Eos % (Auto) % Baso % (Auto) % Neut # (Auto) (1.40-6.50) K/uL Lymph # (Auto) (1.2-3.4) K/uL [place] # (Auto) (0.11-0.59) K/uL Eos # (Auto) (0-0.50) K/uL Baso # (Auto) (0-0.2) K/uL Immature Gran # (Auto) (0.01-0.20) K/uL PT (9.0-12.0) Seconds INR (0.9-1.1) Sodium (136-145) mmol/L Potassium (3.5-5.1) mmol/L Chloride (98-107) mmol/L Carbon Dioxide (21-32) mmol/L Anion Gap (3-11) BUN (6-23) mg/dl Creatinine (0.6-1.4) mg/dl Est Cr Clr Drug Dosing ml/min Est GFR ( Amer) ml/min Est GFR (Non-Af Amer) ml/min BUN/Creatinine Ratio (10-20) Glucose (70-99(Fasting)) mg/dl POC Glucose 499 H* 339 H* 359 H* (70-99) mg/dl Estimat Average Glucose mg/dl Hemoglobin A1c (4.5-5.6) % Calcium (8.5-10.1) mg/dl Magnesium (1.7-2.4) mg/dl Total Bilirubin (0.2-1.0) mg/dl Direct Bilirubin (0-0.2) mg/dl AST (13-39) U/L ALT (7-52) U/L Alkaline Phosphatase (34-104) U/L Ammonia (18-72) umol/L Total Protein (6.0-8.3) gm/dl Albumin (3.4-5.0) gm/dl Globulin (2.5-4.0) gm/dl Albumin/Globulin Ratio (0.9-2) 07/16/22 07/16/22 07/16/22 Range/Units 16:58 12:15 12:14 WBC (4.8-10.8) K/ul RBC (4.70-6.10) M/uL Hgb (14.0-18.0) g/dl Hct (42.0-52.0) % MCV (80.0-100.0) fL MCH (25.0-34.0) pg MCHC (32.0-36.0) g/dL RDW Std Deviation (36.4-46.3) fL RDW Coeff of Nabeel (11.5-14.5) % Plt Count (130-400) K/uL MPV (9.4-12.4) fL Immature Gran % (Auto) % Neut % (Auto) % Lymph % (Auto) % [place] % (Auto) % Eos % (Auto) % Baso % (Auto) % Neut # (Auto) (1.40-6.50) K/uL Lymph # (Auto) (1.2-3.4) K/uL [place] # (Auto) (0.11-0.59) K/uL Eos # (Auto) (0-0.50) K/uL Baso # (Auto) (0-0.2) K/uL Immature Gran # (Auto) (0.01-0.20) K/uL PT (9.0-12.0) Seconds INR (0.9-1.1) Sodium (136-145) mmol/L Potassium (3.5-5.1) mmol/L Chloride (98-107) mmol/L Carbon Dioxide (21-32) mmol/L Anion Gap (3-11) BUN (6-23) mg/dl Creatinine (0.6-1.4) mg/dl Est Cr Clr Drug Dosing ml/min Est GFR ( Amer) ml/min Est GFR (Non-Af Amer) ml/min BUN/Creatinine Ratio (10-20) Glucose (70-99(Fasting)) mg/dl POC Glucose 353 H* 362 H* 365 H* (70-99) mg/dl Estimat Average Glucose mg/dl Hemoglobin A1c (4.5-5.6) % Calcium (8.5-10.1) mg/dl Magnesium (1.7-2.4) mg/dl Total Bilirubin (0.2-1.0) mg/dl Direct Bilirubin (0-0.2) mg/dl AST (13-39) U/L ALT (7-52) U/L Alkaline Phosphatase (34-104) U/L Ammonia (18-72) umol/L Total Protein (6.0-8.3) gm/dl Albumin (3.4-5.0) gm/dl Globulin (2.5-4.0) gm/dl Albumin/Globulin Ratio (0.9-2) 07/16/22 07/16/22 07/16/22 Range/Units 11:21 08:01 07:40 WBC (4.8-10.8) K/ul RBC (4.70-6.10) M/uL Hgb (14.0-18.0) g/dl Hct (42.0-52.0) % MCV (80.0-100.0) fL MCH (25.0-34.0) pg MCHC (32.0-36.0) g/dL RDW Std Deviation (36.4-46.3) fL RDW Coeff of Nabeel (11.5-14.5) % Plt Count (130-400) K/uL MPV (9.4-12.4) fL Immature Gran % (Auto) % Neut % (Auto) % Lymph % (Auto) % [place] % (Auto) % Eos % (Auto) % Baso % (Auto) % Neut # (Auto) (1.40-6.50) K/uL Lymph # (Auto) (1.2-3.4) K/uL [place] # (Auto) (0.11-0.59) K/uL Eos # (Auto) (0-0.50) K/uL Baso # (Auto) (0-0.2) K/uL Immature Gran # (Auto) (0.01-0.20) K/uL PT (9.0-12.0) Seconds INR (0.9-1.1) Sodium (136-145) mmol/L Potassium (3.5-5.1) mmol/L Chloride (98-107) mmol/L Carbon Dioxide (21-32) mmol/L Anion Gap (3-11) BUN (6-23) mg/dl Creatinine (0.6-1.4) mg/dl Est Cr Clr Drug Dosing ml/min Est GFR ( Amer) ml/min Est GFR (Non-Af Amer) ml/min BUN/Creatinine Ratio (10-20) Glucose (70-99(Fasting)) mg/dl POC Glucose 353 H* 347 H* (70-99) mg/dl Estimat Average Glucose 123 mg/dl Hemoglobin A1c 5.9 H (4.5-5.6) % Calcium (8.5-10.1) mg/dl Magnesium (1.7-2.4) mg/dl Total Bilirubin (0.2-1.0) mg/dl Direct Bilirubin (0-0.2) mg/dl AST (13-39) U/L ALT (7-52) U/L Alkaline Phosphatase (34-104) U/L Ammonia (18-72) umol/L Total Protein (6.0-8.3) gm/dl Albumin (3.4-5.0) gm/dl Globulin (2.5-4.0) gm/dl Albumin/Globulin Ratio (0.9-2) 07/16/22 07/16/22 07/16/22 Range/Units 07:40 07:40 07:40 WBC (4.8-10.8) K/ul RBC (4.70-6.10) M/uL Hgb (14.0-18.0) g/dl Hct (42.0-52.0) % MCV (80.0-100.0) fL MCH (25.0-34.0) pg MCHC (32.0-36.0) g/dL RDW Std Deviation (36.4-46.3) fL RDW Coeff of Nabeel (11.5-14.5) % Plt Count (130-400) K/uL MPV (9.4-12.4) fL Immature Gran % (Auto) % Neut % (Auto) % Lymph % (Auto) % [place] % (Auto) % Eos % (Auto) % Baso % (Auto) % Neut # (Auto) (1.40-6.50) K/uL Lymph # (Auto) (1.2-3.4) K/uL [place] # (Auto) (0.11-0.59) K/uL Eos # (Auto) (0-0.50) K/uL Baso # (Auto) (0-0.2) K/uL Immature Gran # (Auto) (0.01-0.20) K/uL PT 15.1 H (9.0-12.0) Seconds INR 1.4 H (0.9-1.1) Sodium 129 L (136-145) mmol/L Potassium 4.9 (3.5-5.1) mmol/L Chloride 98 (98-107) mmol/L Carbon Dioxide 25 (21-32) mmol/L Anion Gap 6 (3-11) BUN 33 H (6-23) mg/dl Creatinine 1.08 (0.6-1.4) mg/dl Est Cr Clr Drug Dosing 86.7 ml/min Est GFR ( Amer) 86.6 ml/min Est GFR (Non-Af Amer) 74.7 ml/min BUN/Creatinine Ratio 30.6 H (10-20) Glucose 377 H* (70-99(Fasting)) mg/dl POC Glucose (70-99) mg/dl Estimat Average Glucose mg/dl Hemoglobin A1c (4.5-5.6) % Calcium 9.3 (8.5-10.1) mg/dl Magnesium 1.7 (1.7-2.4) mg/dl Total Bilirubin 1.4 H (0.2-1.0) mg/dl Direct Bilirubin (0-0.2) mg/dl AST 45 H (13-39) U/L ALT 17 (7-52) U/L Alkaline Phosphatase 125 H (34-104) U/L Ammonia 65.0 (18-72) umol/L Total Protein 6.7 (6.0-8.3) gm/dl Albumin 2.9 L (3.4-5.0) gm/dl Globulin 3.8 (2.5-4.0) gm/dl Albumin/Globulin Ratio 0.8 L (0.9-2) 07/16/22 Range/Units 07:40 WBC 3.63 L (4.8-10.8) K/ul RBC 3.08 L (4.70-6.10) M/uL Hgb 9.8 L (14.0-18.0) g/dl Hct 28.0 L (42.0-52.0) % MCV 90.9 (80.0-100.0) fL MCH 31.8 (25.0-34.0) pg MCHC 35.0 (32.0-36.0) g/dL RDW Std Deviation 47.8 H (36.4-46.3) fL RDW Coeff of Nabeel 14.4 (11.5-14.5) % Plt Count 42 L (130-400) K/uL MPV 13.2 H (9.4-12.4) fL Immature Gran % (Auto) 0.3 % Neut % (Auto) 87.9 % Lymph % (Auto) 9.9 % [place] % (Auto) 1.9 % Eos % (Auto) 0.0 % Baso % (Auto) 0.0 % Neut # (Auto) 3.19 (1.40-6.50) K/uL Lymph # (Auto) 0.36 L (1.2-3.4) K/uL [place] # (Auto) 0.07 L (0.11-0.59) K/uL Eos # (Auto) 0.00 (0-0.50) K/uL Baso # (Auto) 0.00 (0-0.2) K/uL Immature Gran # (Auto) 0.01 (0.01-0.20) K/uL PT (9.0-12.0) Seconds INR (0.9-1.1) Sodium (136-145) mmol/L Potassium (3.5-5.1) mmol/L Chloride (98-107) mmol/L Carbon Dioxide (21-32) mmol/L Anion Gap (3-11) BUN (6-23) mg/dl Creatinine (0.6-1.4) mg/dl Est Cr Clr Drug Dosing ml/min Est GFR ( Amer) ml/min Est GFR (Non-Af Amer) ml/min BUN/Creatinine Ratio (10-20) Glucose (70-99(Fasting)) mg/dl POC Glucose (70-99) mg/dl Estimat Average Glucose mg/dl Hemoglobin A1c (4.5-5.6) % Calcium (8.5-10.1) mg/dl Magnesium (1.7-2.4) mg/dl Total Bilirubin (0.2-1.0) mg/dl Direct Bilirubin (0-0.2) mg/dl AST (13-39) U/L ALT (7-52) U/L Alkaline Phosphatase (34-104) U/L Ammonia (18-72) umol/L Total Protein (6.0-8.3) gm/dl Albumin (3.4-5.0) gm/dl Globulin (2.5-4.0) gm/dl Albumin/Globulin Ratio (0.9-2) Diagnostic Findings KUB X-Ray 07/16/22 08:00 KUB CLINICAL HISTORY: Evaluate constipation. COMPARISON STUDY: CT of the abdomen and pelvis July 08, 2022. FINDINGS: There is no evidence for a bowel obstruction. Moderate amount of stool within the colon and rectum has increased since prior CT. There is no evidence for free air on this supine exam. No urinary calculi are identified. IMPRESSION: 1. No evidence for a bowel obstruction. 2. Increase in a moderate amount of stool within the colon and rectum since prior CT. ACT 112: Negative or not required by law. Electronically signed by: Remi Hernandez M.D. 07/16/2022 9:35 AM Venous Doppler Study 07/16/22 10:00 BILATERAL LOWER EXTREMITY VENOUS DOPPLER HISTORY: Bilateral leg erythema/swelling, r/o DVT COMPARISON STUDY: None. FINDINGS: There is normal compressibility, flow, and augmentation within the bilateral lower extremity deep venous systems. IMPRESSION: No DVT within the right or left lower extremity. ACT 112: Negative or not required by law. Electronically signed by: James Lemus M.D. 07/16/2022 11:34 AM NUCLEAR MEDICINE HEPATOBILIARY SCAN WITH EJECTION FRACTION HISTORY: elevated LFT, RUQ tenderness, GB distension, eval COMPARISON: Abdominal ultrasound 07/12/2022. TECHNIQUE: Immediately following the intravenous administration of 5.1 mCi Tc- 99m Choletec, dynamic anterior abdominal imaging pre/post 1.9 mcg of Kinevac was performed. FINDINGS: Uniform hepatic tracer accumulation is shown. Prompt intrahepatic biliary excretion is seen. The gallbladder, bile duct are visualized by 52 minutes. Slight delayed visualization of small bowel at 70 minutes. This could represent a normal variant. The gall bladder ejection fraction following administration of Kinevac was 84% (normal >35%). IMPRESSION: 1. No evidence for cystic duct obstruction. 2. Gallbladder ejection fraction calculated to be 84 %. ACT 112: Negative or not required by law. Electronically signed by: James Lemus M.D. 07/17/2022 10:43 AM Dictated:07/17/22 1041 Transcribed: 07/17/22 1041 PG Care Time/CCT Total # of Minutes Spent Total Time Spent with Patient: Total time spent is greater than 50% in coordination of care (as documented) at patient's floor/unit and/or counseling patient: Coding Level of Care Code 36192 SUB INP/OBS CARE 350MIN Diagnoses Closed compression fracture of L1 vertebra S32.010A Encounter type: initial encounter Abdominal ascites R18.8 Hypomagnesemia E83.42 Alcohol abuse, in remission F10.11 COPD (chronic obstructive pulmonary disease) J44.9 Type 2 diabetes mellitus E11.9 Thrombocytopenia D69.6 Vitamin D deficiency E55.9 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
[2022-07-17] MEDS ORDERED: FAMOTIDINE 20 MG in SYRINGE 3 ML IV ONE (08:02)
[2022-07-17] MEDS ORDERED: LANTUS PER UNIT CHARGE SQ SCH ×2 (09:00→21:00)
[2022-07-17] MEDS ORDERED: SINCALIDE 1.9 MCG in 0.9 % SODIUM CHLORIDE 100 ML IV SCH (09:00)
[2022-07-17] MEDS ORDERED: LORazepam 2 MG/1 ML VIAL IV STA (09:17)
[2022-07-17] MEDS: INSULIN ASPART PER UNIT SC SCH ×5 (10:09→23:50)
--- NOTE | 2022-07-17 10:44 | Nuclear Medicine Report ---
NUCLEAR MEDICINE HEPATOBILIARY SCAN WITH EJECTION FRACTION HISTORY: elevated LFT, RUQ tenderness, GB distension, eval COMPARISON: Abdominal ultrasound 07/12/2022. TECHNIQUE: Immediately following the intravenous administration of 5.1 mCi Tc-99m Choletec, dynamic a nterior abdominal imaging pre/post 1.9 mcg of Kinevac was performed. FINDINGS: Uniform hepatic tracer accumulation is shown. Prompt intrahepatic biliary excretion is seen. The gall bladder, bile duct are visualized by 52 minutes. Slight delayed visualization of small bowel at 70 mi nutes. This could represent a normal variant. The gall bladder ejection fraction following administration of Kinevac was 84% (normal >35%). IMPRESSION: 1. No evidence for cystic duct obstruction. 2. Gallbladder ejection fraction calculated to be 84 %. ACT 112: Negative or not required by law. Electronically signed by: James Lemus M.D. 07/17/2022 10:43 AM
--- NOTE | 2022-07-17 11:06 | XRay Report ---
ORBIT RADIOGRAPHS 3 VIEWS HISTORY: pre-MRI screening. COMPARISON: Head CT May 20, 2022. FINDINGS: There are no radiopaque foreign bodies identified within the orbits. IMPRESSION: No radiopaque foreign bodies identified within the orbits. ACT 112: Negative or not required by law. Electronically signed by: Remi Hernandez M.D. 07/17/2022 11:04 AM
[2022-07-17] MEDS: oxyCODONE HCL IR 5 MG TAB (IMMEDIATE RELEASE) PO PRN ×2 (11:21→20:14)
[2022-07-17] MEDS ORDERED: GADOBUTROL 65ML VIAL IV ONE (12:35)
[2022-07-17] MEDS ORDERED: HYDROmorphone INJ 0.5 MG/0.5 ML SYR IV STA ×2 (12:43→20:15)
[2022-07-17] MEDS: PROPRANOLOL HCL 10 MG TAB PO SCH ×2 (12:48→20:13)
[2022-07-17] MEDS: predniSONE 20 MG TAB PO SCH (12:48)
[2022-07-17] MEDS: GABAPENTIN 800 MG TAB PO SCH ×3 (12:49→20:13)
[2022-07-17] MEDS: TORSEMIDE 10 MG TAB PO SCH (12:49)
[2022-07-17] MEDS: MAGNESIUM CHLORIDE W/CALCIUM 64MG DELAYED REL TAB PO SCH ×2 (12:49→20:13)
[2022-07-17] MEDS: PANTOprazole 40 MG TAB PO SCH ×2 (12:49→20:14)
[2022-07-17] MEDS: rifAXIMin 550 MG TABLET PO SCH ×2 (12:50→20:13)
[2022-07-17] MEDS: DOXYCYCLINE HYCLATE 100 MG CAP PO SCH ×2 (12:50→20:14)
[2022-07-17] MEDS: THIAMINE HCL 100 MG TAB PO SCH (12:50)
[2022-07-17] MEDS: SPIRONOLACTONE 100 MG TAB PO SCH (12:50)
[2022-07-17] MEDS: CHOLECALCIFEROL 5,000 UNITS 125 MCG TAB PO SCH (12:51)
[2022-07-17] MEDS: DICLOFENAC SOD 1% GEL 100 GM TUBE EXT SCH ×4 (12:51→20:14)
[2022-07-17] MEDS: CALCIUM 600MG + VIT D 400 IU TAB PO SCH ×2 (12:51→20:14)
[2022-07-17] MEDS: LIDOCAINE 5% 1 PATCH TD SCH (12:52)
[2022-07-17] MEDS: LACTULOSE SYRUP 20 GM/30 ML UDC PO SCH ×3 (12:52→20:13)
[2022-07-17] MEDS: buprenorphine HCL 8 MG SUBL SL SCH ×3 (13:04→20:14)
--- NOTE | 2022-07-17 13:21 | Pharmacy Report ---
Pharmacy Glycemic Short Note 2 - Date of Service July 17, 2022 - Glycemic Short BSG Results (Last 24 hours): 07/16/22 07/16/22 07/16/22 16:58 16:59 17:04 Glucose POC Glucose 353 H* 359 H* 339 H* 07/16/22 07/16/22 07/16/22 19:30 20:30 21:30 Glucose POC Glucose 499 H* 372 H* 356 H* 07/16/22 07/16/22 07/17/22 22:51 23:50 00:49 Glucose POC Glucose 316 H* 290 H 241 H 07/17/22 07/17/22 07/17/22 01:57 03:02 04:04 Glucose POC Glucose 246 H 192 H 165 H 07/17/22 07/17/22 07/17/22 05:01 06:01 06:23 Glucose 118 H POC Glucose 142 H 122 H 07/17/22 07/17/22 07/17/22 07:00 07:30 12:44 Glucose POC Glucose 108 H 104 H 113 H OUTPATIENT ANTIDIABETIC REGIMEN: * Lantus 80 units SQ BID * Humalog 30 units SQ TID with meals ASSESSMENT: 07/17: * Insulin infusion started last evening due to persistent hyperglycemia during the day, BSGs responded well and insulin infusion was discontinued this morning prior to HIDA scan and MRI * Prior hyperglycemia certainly related to IV methylprednisolone 40 mg q6h, which has now been changed to prednisone daily * Will give reduced basal from yesterday, as insulin needs can often change significantly while on methylprednisolone vs. prednisone 07/16: * Patient received 70 units of total insulin yesterday; 40 units basal + 30 units bolus. * Last night BSGs had trended down to 147 mg/dl at dinner, 180 mg/dl at HS. * With continued IV Solu-medrol doses q6h, fasting BSG this morning was high at 377 mg/dl. Additional dose of Lantus 15 units given this morning based on stress of 2. * Pre-lunch BSG was also above 300 mg/dl. IV regular insulin 5 units was given at this time. Novolog parameters tightened further with dinner. * Last dose of IV Solu medrol is today at 3 pm. Expect BSGs to trend down this evening. * Basal Lantus dose at HS continued the same. 07/15/22: * 61 y/o M admitted for compression fractures due to recent falls. Patient with history of diabetes managed at home on basal and bolus insulins. * Patient has been here since 07/10/22 and was getting Lantus 40 units HS and Novolog ACHS based on stress between 2 and 3. * BSGs have been well controlled on this dosing. * Today patient is now starting on IV Solumedrol 40 mg q6h for 5 doses. Expecting BSGs to trend up. Pharmacy is consulted for glycemic management. * For now, will continue basal Lantus the same since 40 units is above double stress of 2 and plan is for Solu-medrol to be discontinued in 24hrs. If fasting BSG is high tomorrow AM then will plan on adding some basal at that time. * Novolog goal range tightened slightly today so that he can get more correctional insulin. PLAN FOR INPATIENT GLYCEMIC CONTROL: * Basal insulin * Lantus 30 units SC x 1 with prednisone today * Lantus 0-15 units SC HS (see EHR for details) * Bolus insulin * NovoLog per scale ACHS or Q6hrs while NPO * Goal Range: Low 110 mg/dL - High 160 mg/dL * Correction Factor: 15 mg/dL/unit * Nutritional / Prandial insulin per carb ratio of 1 unit per 6 grams CHO consumed
--- NOTE | 2022-07-17 13:42 | Magnetic Resonance Report ---
LUMBAR SPINE MRI WITH AND WITHOUT CONTRAST HISTORY: back pain, lumbar fx, eval abn/stenosis TECHNIQUE: Multiplanar multisequence MRI of the lumbar spine was performed both before and after the intravenous administration of contrast. COMPARISON: Abdomen and pelvis CT 07/08/2022. Lumbar spine radiograph 07/13/2022. FINDINGS: For the purpose of the report the L5-S1 disc space will be located on axial image 29 of 32. No significant change in the acute to subacute mild superior endplate compression fracture at L1 and mild to moderate super endplate compression fracture at L4. No new fractures identified within the ryann mbar spine. The sacrum appears intact. No significant retropulsion at this time. The conus terminus a t the L1 level. Mild levoscoliosis of the lumbar spine. Mild disc space narrowing at L1-L2, L4-L5, an d L5-S1. Mild facet degenerative changes within the lumbar spine. Enhancement within the L1 and L4 ve rtebral bodies is likely due to the fractures. Linear T2 hyperintense focus within the T12 spinous pr ocess with associated enhancement is noted. This could represent a nondisplaced fracture. L1-L2: No significant central canal or neural foraminal narrowing. L2-L3: No significant central canal or neural foraminal narrowing. L3-L4: Small broad-based posterior disc bulge with mild ligamentum flavum and facet hypertrophy witho ut significant central canal or left-sided neural foraminal narrowing. There is mild right-sided neur al foraminal narrowing. L4-L5: Broad-based posterior disc bulge with ligamentum and facet hypertrophy resulting in mild centr al canal and mild bilateral neural foraminal narrowing. The central canal demonstrates an AP diameter of 9.2 mm. hypertrophy. L5-S1: Small broad-based posterior disc bulge asymmetric to the left without significant central janessa l or right-sided neural foraminal narrowing. There is moderate to severe left-sided neural foraminal narrowing due to the asymmetric disc bulge and facet IMPRESSION: 1. Acute to subacute superior endplate compression fractures at L1 and L4 described above. Unchanged. 2. No new compression fractures identified within the lumbar spine. 3. Linear focus of increased T2 signal within the spinous process of T12 could represent a nondisplac ed fracture. 4. Degenerative changes as described above. ACT 112: Negative or not required by law. Electronically signed by: James Lemus M.D. 07/17/2022 1:40 PM
[2022-07-17 15:07] LABS: CMV IgM Antibody <30.00 AU/mL
[2022-07-17 15:17] LABS: EBV Virus Capsid Ag IgG Ab >750.00 U/mL
[2022-07-18] MEDS: INSULIN ASPART PER UNIT SC SCH ×3 (04:12→13:06)
[2022-07-18] MEDS: oxyCODONE HCL IR 5 MG TAB (IMMEDIATE RELEASE) PO PRN ×2 (04:16→13:12)
[2022-07-18] MEDS: CHOLECALCIFEROL 5,000 UNITS 125 MCG TAB PO SCH (08:46)
[2022-07-18] MEDS: rifAXIMin 550 MG TABLET PO SCH (08:46)
[2022-07-18] MEDS: TORSEMIDE 10 MG TAB PO SCH (08:47)
[2022-07-18] MEDS: THIAMINE HCL 100 MG TAB PO SCH (08:47)
[2022-07-18] MEDS: predniSONE 20 MG TAB PO SCH (08:47)
[2022-07-18] MEDS: MAGNESIUM CHLORIDE W/CALCIUM 64MG DELAYED REL TAB PO SCH (08:48)
[2022-07-18] MEDS: PANTOprazole 40 MG TAB PO SCH (08:48)
[2022-07-18] MEDS: GABAPENTIN 800 MG TAB PO SCH ×2 (08:48→14:48)
[2022-07-18] MEDS: DOXYCYCLINE HYCLATE 100 MG CAP PO SCH (08:48)
[2022-07-18] MEDS: CALCIUM 600MG + VIT D 400 IU TAB PO SCH (08:49)
[2022-07-18] MEDS: LIDOCAINE 5% 1 PATCH TD SCH (08:49)
[2022-07-18] MEDS: DICLOFENAC SOD 1% GEL 100 GM TUBE EXT SCH ×2 (08:50→13:10)
[2022-07-18] MEDS: LACTULOSE SYRUP 20 GM/30 ML UDC PO SCH ×2 (08:51→14:48)
[2022-07-18] MEDS ORDERED: LANTUS PER UNIT CHARGE SQ SCH ×2 (09:00)
[2022-07-18] MEDS: buprenorphine HCL 8 MG SUBL SL SCH ×2 (09:00→14:50)
[2022-07-18] MEDS: PROPRANOLOL HCL 10 MG TAB PO SCH (09:06)
[2022-07-18 11:19] LABS: Calcium 9.6 mg/dl (8.5-10.1); Creatinine Clr Calc Pharmacy 82.9 ml/min; Est GFR (Non-African American) 70.8 ml/min; Potassium 4.3 mmol/L (3.5-5.1)
[2022-07-18 12:38] LABS: 18KDIGG Band NON-REACTIVE; 23KDIGG Band NON-REACTIVE; 23KDIGM Band NON-REACTIVE; 28KDIGG Band NON-REACTIVE; 30KDIGG Band NON-REACTIVE; 39KDIGG Band REACTIVE; 39KDIGM Band NON-REACTIVE; 41KDIGG Band NON-REACTIVE; 41KDIGM Band NON-REACTIVE; 45KDIGG Band NON-REACTIVE; 58KDIGG Band REACTIVE; 66KDIGG Band NON-REACTIVE; 93KDIGG Band REACTIVE; Lyme Antibodies, WB IgG NEGATIVE (NEGATIVE); Lyme Antibodies, WB IgM NEGATIVE (NEGATIVE)
--- NOTE | 2022-07-18 13:33 | Discharge Summary ---
Date of Service July 18, 2022 Admission HPI Per Admitting Provider Chuck is a 61-year-old male with a history of cirrhosis, chronic hep C, alcohol abuse, past IV drug use, OUD on Suboxone, AAA, DM, GERD, COPD with chronic hypoxia on 2 L, hypertension, ELINA who presents with recurrent abdominal pain similar to prior episodes. He reports that his pain is too poorly controlled to return home. Chuck is seen at the bedside. He reports that after returning home he was doing okay, but had a paracentesis performed at the hospital 3 days ago. He was told this paracentesis had some white blood cells in it and he was placed on ciprofloxacin which he did not take today but did take the last days. He reports today his abdominal pain significantly worsened after he went to sit down on the toilet using his walker which slid out slightly causing him to fall to his butt on the toilet jarring his back. Subsequently has had mid low back pain radiating to his right flank. Has also noticed an increase in pain diffusely in his belly which remains swollen and ascitic. He denies fever, chills, sweats, chest pain, shortness of breath, lightheadedness, dizziness changed in the last 3 days but does note "just the pain is worse, he would be my best friend if you could just make the pain in my belly better so I can get some sleep " no medication changes other than having ciprofloxacin added. Took medications last night. Denies current alcohol use. Social history reviewed. Discharge Data Allergies Allergy/AdvReac Type Severity Reaction Status Date / Time No Known Allergies Allergy Verified 07/08/22 16:38 Consultations 07/08/22 17:21 ED Decision to Admit Stat 07/12/22 12:23 Consult Gastroenterology Routine 07/12/22 14:43 Consult Pain Management Routine Ordered Studies 07/08/22 13:39 CT abd pelvis IV con only Stat 07/09/22 11:45 US abdomen ltd ascites Routine 07/12/22 09:37 US gallbladder Urgent 07/15/22 09:30 US abdomen ltd ascites Routine 07/16/22 10:00 US venous doppler LE BI Routine 07/17/22 08:35 MR lumbar spine wo/w con Routine Hospital Course (1) Closed compression fracture of L1 vertebra: Likely 2/2 falling/sitting abruptly on toilet when walker slid out Imaging on admit with acute to subacute L1/L4 compression deformities (new from May 2022) Vit D low 16.2, replacement ordered Pain management consulted -- continue subutex, oxycodone prn, dilaudid for breakthrough -- also have topical voltaren, lidocaine patches, heating pad as needed for discomfort -- remains on his gabapentin 800mg TID, ?may need to reduce this w/ his hepatic impairment 300mg daily? -- appears to have been on for some time -- Orthotics consulted, provided TLSO brace, does report this helps Added IV steroids 07/15 for additional pain control, does report improvement -->placed on prednisone 50mg for today and if continues effective would taper at d/c Lumbar MRI pending -- Dr Webster available tomorrow for review Lyme IgG +, IgM negative-- patient did report multiple tick bites over last year with his dog and removal from scalp but never treated -- placed on Doxy BID and monitor WB testing PT/OT consulted, recs for rehab. P2p completed and they denied. 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 [facility] is who should be reaching out to patient in next couple of days. # obtained by nurse navigator for his Liver Coordinator --Megan Luis @ [phone]. If patient deteriorates/needing transfer for such, to call [facility] doc-doc [phone] CTAP on admit w/o bowel obstruction, did note cirrhosis w/ stigmata of portal venous hypertension including splenomegaly, abdominal varicosities with ascites. Cholelithiasis with unchanged gallbladder distention. 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 Healing subacute anterior rib fractures. Acute to subacute L1 and L4 compression deformities, new from May 21, 2022. Minimal associated retropulsion without high-grade central canal stenosis. Covered prior for SBP w/ Rocephin, fluid from 07/05 w/o growth or organism on GS and abd 07/09 small amt ascites Empiric abx stopped 07/11 RESUMED home rifaximin 550mg BID 07/12 RUQ US GB distension HIDA w/ normal EF Switched bumex to torsemide 20mg BID but changed to once daily, resumed this morning Remains on spironolactone 100mg daily, hold for AM given K 5 and will change to low K diet Bowel regimen -- lactulose increased to 30mg TID -- LARGE BM x 2 reported. Increase further if needed Hepatits panel/CMV/EBV pending LFTs stable around baseline Outpt GI/hepatology f/u (3) Hypomagnesemia: Chronic lows, ?2nd to PPI use IV replacement, switched to slow mag and started vit d supp Mag 1.7 and can continue PO supplementation for now monitor in AM (4) Alcohol abuse, in remission: In remission -- lapse of drinking in April but reports hasn't since that time Continue thiamine, added 07/13. b1 pending (5) COPD (chronic obstructive pulmonary disease): On chronic home O2 -- states he does have and uses at night/sleeping and when up/ambulating if having any difficulty but has been on room air recently (reported using at night) w/ additional bumex use which has been switched to torsemide Nebs PRN No exacerbation currently, 94% on RA CXR improved interstitial edema since switching to torsemide and would continue at d/c in place of bumex (6) Type 2 diabetes mellitus: Last A1c 9.8 but that WAS IN February --> repeated w/ AM labs and A1c down to 5.9 Pharmacy consulted given IV solumedrol for back pain as above BSG elevation 07/16, 2nd to IV solumedrol Insulin gtt overnight, discontinued, prednisone 50mg today and planned taper Continued glycemic management appreciated Monitor BSGs, most recently 118 (7) Thrombocytopenia: Stable, no active bleeding on admission or bleeding reported Plt are low, 2nd to cirrhosis --> ASA PLACED ON HOLD and plt improved/stable Monitor on repeat (8) Vitamin D deficiency: checked due to fractures low 16.2 -- replacement to be ordered and would continue at d/c. 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, reported multiple tick bites at home that he thought were scabs initially however pulled off and were ticks over past couple months, never got a rash started empiric doxy BID 07/13 and monitor WB testing (10) Compression fracture of L4 vertebra: as above, pain control and therapy, TLSO brace Plan continued inpatient stay, but going to be d/c w/ HH as p2p denied and not wanting [facility] Patient hopeful for d/c tomorrow depending pain control Dr Webster available to review MRI tomorrow Home Health Attestation I certify that this patient is under my care and that I, or a physicians mobile unit assistant working with me, had a face to-face encounter that meets the psychiatric hospital [id number] encounter requirements with this patient. The encounter with the patient was in whole, or in part, for the following medical condition, which is the primary reason for home health care (list medical condition): Abd pain. I certify that, based on my findings, the following services are medically necessary home health services: My clinical findings support the need for the above services because: PT Assessment for Endurance / Balance / Strength PT Eval for Safety and Mobility PT Eval for Safety, Gait Training, Assistive Devices PT Gait and Balance Training, Strengthening and Safety Skilled Nsg Assessment Further, I certify that my clinical findings support that this patient is homebound (i.e. absences from home require considerable and taxing effort and are for medical reasons or yazdanism services or infrequently or of short duration when for other reasons) because: Supportive Aid - Walker Certification for Home Health Services: Based on the above findings, I certify that this patient is confined to the home and needs intermittent intermediate care, physical therapy and/or speech therapy or continues to need occupational therapy. The patient is under my care, and I have initiated the establishment of the plan of care. This patient will be followed by a physician who will periodically review the plan of care. Discharge Plan Discharge Items Patient Disposition: Home - Home Health Services Reason For Visit: ABDOMINAL PAIN,COMPRESSION FRACTURES Discharge Diagnosis: 1. compression fractures of L1 & L4 2. possible lyme disease (Lyme antibody testing was positive) 3. vitamin D deficiency (level = 16; normal is >30) 4. diabetes 5. recent problems with recurrent ascites due to cirrhosis - much improved 6. chronic use of subutex 7. chronic headaches 8. history of hepatitis C Activity: As commented below Activity Comment: avoid heavy exertional activities that aggravate your back pain Lifting: No more than 10 pounds Sexual Activity: Wait until after follow-up appointment Exercise/Sports: Wait until after follow-up appointment Driving/Machine Use: No driving due to narcotic pain killer medication Non-emergency contact: Primary Care Provider Call non-emergency contact if: you have any medication questions Follow-up/Referrals: Alicia Leach PA-C [Physician R Programmer] - (Ms Case or any of her as sociates - first available; dx - chronic headaches with past h/o migraines) Bobby Leslie MD [Primary Care Provider] - (within 1 week with PCP ) Diet: Low Sodium (2gm) Addtl Attending Provider Instructions: Liver Coordinator at [facility] Megan Smith Pending Studies at Discharge: Yes Studies:: HepA, HepB, and HepC testing Stand-Alone Forms: [facility] [employer], Smoking Cessation Medications and DC Order Prescriptions: New doxycycline hyclate 100 mg Capsule 100 mg PO BID@0700,1900 8 Days Qty: 16 0RF oxycodone 5 mg Tablet 5 mg PO Q4H PRN (Reason: back pain) Qty: 20 0RF diclofenac sodium [Voltaren Arthritis Pain] 1 % Gel 4 g EXT QID PRN (Reason: back pain) Qty: 1 0RF Rx Instructions: purchase nxyb-vps-[id number] nystatin 100,000 unit/mL suspension 5 ml PO ACHS 7 Days Qty: 150 0RF Rx Instructions: swish and spit. prednisone 10 mg tablet 10 mg PO .daily as directed Qty: 11 0RF Rx Instructions: start 07/19/22: 3 tabs daily x 2 days; 2 tabs daily x 2 days; 1 tab daily x 1 day. Take with food. ergocalciferol (vitamin D2) 1,250 mcg (50,000 unit) capsule 50,000 unit PO .once a week 49 Days Qty: 7 0RF Rx Instructions: take first dose on , 07/20/22. Then once a week thereafter. magnesium chloride 64 mg tablet,delayed release (DR/EC) 64 mg PO BID Qty: 60 1RF Continued insulin lispro [Humalog U-100 Insulin] 100 unit/mL Solution 30 unit SUBCUT TIDM insulin glargine [Lantus Solostar U-100 Insulin] 100 unit/mL (3 mL) Insulin Pen 80 unit SUBCUT BID ipratropium-albuterol 0.5 mg-3 mg(2.5 mg base)/3 mL solution for nebulization 3 ml INHALATION QID PRN (Reason: Shortness Of Breath Or Wheezing) gabapentin 800 mg tablet 800 mg PO TID bumetanide 1 mg tablet 1 mg PO BID Qty: 60 1RF spironolactone 100 mg tablet 100 mg PO DAILY Qty: 30 1RF buprenorphine HCl 8 mg tablet, sublingual 8 mg SUBLINGUAL TID propranolol 10 mg Tablet 10 mg PO BID Qty: 60 0RF lactulose 20 gram/30 mL Solution 20 g PO TID Qty: 60 0RF Changed omeprazole 40 mg capsule,delayed release(DR/EC) 40 mg PO QAM Qty: 30 1RF Rx Instructions: note increased dose. Discontinued ciprofloxacin HCl 500 mg tablet 500 mg PO BID Qty: 14 0RF Rx Instructions: BEGIN 07/06/22 X 7 DAYS aspirin [Chavo Low Dose Aspirin] 81 mg Tablet,Delayed Release (Dr/Ec) 81 mg PO DAILY Discharge Orders: Discharge Order (Routine); Ordered 07/18/22 Ordered By: Liban Vargas Admission Data Admit Date/Time: 07/10/22 11:18 Attending Provider: Liban Vargas Admit Provider: Jameel Mcgee Primary Care Provider: Bobby Leslie Other Providers: Jameel Mcgee ; [facility] ; Azam Leach ; Lizzy Murillo Coding Diagnoses Closed compression fracture of L1 vertebra S32.010A Encounter type: initial encounter Abdominal ascites R18.8 Hypomagnesemia E83.42 Alcohol abuse, in remission F10.11 COPD (chronic obstructive pulmonary disease) J44.9 Type 2 diabetes mellitus E11.9 Thrombocytopenia D69.6 Vitamin D deficiency E55.9 Lyme borreliosis A69.20 Compression fracture of L4 vertebra S32.040A
[2022-07-18 14:01] LABS: HBSAG NON-REACTIVE (NON-REACTIVE); Hepatitis A Antibody IgM NON-REACTIVE (NON-REACTIVE); Hepatitis B Core Antibody IgM NON-REACTIVE (NON-REACTIVE)
[2022-07-18] MEDS ORDERED: DOXYCYCLINE HYCLATE 100 MG CAP PO SCH (19:00)
[2022-07-19 13:26] LABS: Hepatitis C Vira RNA (Log) PCR 4.29 Log IU/mL (NOT DETECTED); Hepatitis C Viral RNA by PCR 19300 IU/mL (NOT DETECTED)
== END 2022-07-18 17:34 | disposition home health service (06) | DRG 552 ==
LOC: ED 13:26 → 3N 13:26 → SUATTDRO 18:20 → 3N 19:49 → SUATTDRO 07-10 11:18

== ENCOUNTER 2023-04-27 14:38 | Inpatient (IN) ==
--- NOTE | 2023-04-27 14:48 | ED Triage Note ---
Date of Service April 27, 2023 Provider in Triage Author: Rupa Dash. History of Present Illness This patient was briefly evaluated while in triage. An abbreviated physical exam was performed. This patient is a 62-year-old Male who presents to the ED for evaluation of general illness and shaking. Reports discontinuing his home medications 1 week ago for no specific reason. History of drug and alcohol abuse. On Subutex. Denies recent substance abuse, illness or falls. Physical Exam Constitutional: alert and oriented x3. no acute distress. HEENT: normocephalic, atraumatic. normal conjunctiva.PERRLA. EOM's grossly intact. Respiratory: lungs are clear to auscultation without wheezes, rhonchi, or rales bilaterally. equal chest rise. normal respiratory effort, no accessory muscle use. Cardiovascular: normal heart sounds without murmur. regular rate and rhythm. GI: abdomen is soft, nontender. No palpable masses. No rebound tenderness or guarding. MSK: moves all 4 extremities spontaneously Psych:appropriate mood and affect. Initial orders for labs and / or imaging were placed and patient was placed in the waiting area until a bed is available. Please see further documentation for the full ED course.
[2023-04-27 15:54] LABS: Basophils # (auto) 0.06 K/uL (0.00-0.20); Eosinophils # (auto) 0.26 K/uL (0.00-0.50); Eosinophils % (auto) 4.3 %; Hematocrit (blood only) 36.3 % (42.0-52.0); Hemoglobin 12.4 g/dl (14.0-18.0); Immature Granulocytes # (auto) 0.01 K/uL (0.01-0.20); Immature Granulocytes % (auto) 0.2 %; Lymphocytes # (auto) 1.33 K/uL (1.20-3.40); Lymphocytes % (auto) 21.9 %; Mean Corpuscular Hemoglobin 31.6 pg (25.0-34.0); Mean Corpuscular Hgb Conc 34.2 g/dL (32.0-36.0); Mean Corpuscular Volume 92.4 fL (80.0-100.0); Mean Platelet Volume 10.6 fL (9.4-12.4); Monocytes # (auto) 0.37 K/uL (0.11-0.59); Monocytes % (auto) 6.1 %; Neutrophils # (auto) 4.05 K/uL (1.40-6.50); Neutrophils % (auto) 66.5 %; Platelet Count 50 K/uL (130-400); RDW Coefficient of Variation 16.1 % (11.5-14.5); RDW Standard Deviation 55.6 fL (36.4-46.3); Red Blood Count 3.93 M/uL (4.70-6.10); White Blood Count 6.08 K/ul (4.8-10.8)
--- NOTE | 2023-04-27 15:55 | Electrocardiogram Report ---
Test Reason : Blood Pressure : / mmHG Vent. Rate : 070 BPM Atrial Rate : 070 BPM P-R Int : 166 ms QRS Dur : 082 ms QT Int : 412 ms P-R-T Axes : 006 -43 028 degrees QTc Int : 444 ms Normal sinus rhythm Left axis deviation Low voltage QRS Cannot rule out Anterior infarct (cited on or before 01-AUG-2022) Abnormal ECG When compared with ECG of 01-AUG-2022 06:15, QT has shortened Confirmed by James Retana ([id number]) on 04/27/2023 3:54:48 PM Referred By: Confirmed By:James Retana
[2023-04-27 16:11] LABS: Alanine Aminotransferase 65 U/L (7-52); Albumin Globulin Ratio 0.7 (0.9-2); Albumin Level 2.8 gm/dl (3.4-5.0); Alkaline Phosphatase 87 U/L (34-104); Anion Gap 5 (3-11); Aspartate Aminotransferase 154 U/L (13-39); BUN Creatinine Ratio 15.2 (10-20); Bilirubin,Total 2.6 mg/dl (0.2-1.0); Blood Urea Nitrogen 12 mg/dl (6-23); Calcium 8.6 mg/dl (8.6-10.3); Carbon Dioxide 22 mmol/L (21-32); Chloride 107 mmol/L (98-107); Est GFR (African American) 113.1 ml/min; Est GFR (Non-African American) 97.6 ml/min; Glucose 97 mg/dl (70-99(Fasting)); Sodium 134 mmol/L (136-145); Total Protein 6.8 gm/dl (6.0-8.3)
[2023-04-27 16:16] LABS: Troponin I High Sensitivity 3.7 pg/ml (0-20)
[2023-04-27] MEDS ORDERED: PROMETHAZINE 12.5 MG/50.5 ML BAG IV STA (18:18)
[2023-04-27] MEDS ORDERED: LORazepam 1 MG/1 ML SYR ED Inj Use IV STA (18:18)
[2023-04-27] MEDS ORDERED: GABAPENTIN 800 MG TAB PO STA (18:18)
[2023-04-27] MEDS ORDERED: SODIUM CHLORIDE 0.9% 500 ML IV ONE ×2 (18:21→19:44)
[2023-04-27] MEDS ORDERED: SODIUM BICARB 8.4% INJ 50 MEQ/50 ML SYR IV STA (18:23)
[2023-04-27] MEDS ORDERED: ALBUTEROL 0.083% NEBU SOLN 3 ML VIAL NEB STA (18:23)
[2023-04-27] MEDS ORDERED: DEXTROSE 50% 50 ML SYRINGE IV ONE (18:23)
[2023-04-27] MEDS ORDERED: NovoLIN-R INSULIN PER UNIT CHARGE IV STA (18:23)
--- NOTE | 2023-04-27 18:35 | Emergency Department Note ---
Impression & Plan Acute hyperkalemia, Acute dehydration, Weakness, Liver disease, Noncompliance with medications ED Provider Note NAME: KAYODE GREENFIELD AGE: 62 SEX: M : 1960 ARRIVES VIA: Ambulance INFORMANT: [Patient] ED PROVIDER(S): [Adriano Hsu MD] CHIEF COMPLAINT: Illness HISTORY OF PRESENT ILLNESS: The patient is a 62-year-old male with liver disease. He has history of alcohol abuse and heroin abuse. He is on Subutex chronically. The patient states that for what ever reason, he stopped taking his typical meds for his mental health a few days ago. He is still taking his Subutex. The patient states that he feels like he is crawling out of his skin, he cannot sit still. There was some nausea and vomiting. He has not had chest pain, cough or congestion. No fever. No abdominal pain. The patient spoke to his sponsor and was referred to the ER for evaluation. The patient is asking for a shot of something to make him feel better. PMHx/PSHx/Social Hx: See Below PHYSICAL EXAM: GENERAL: Patient is in no acute distress. Seems anxious. HEENT: No acute trauma, normocephalic atraumatic, mucous membranes dry, no nasal congestion. NECK: No stridor, no adenopathy, no meningismus, trachea is midline. LUNGS: Clear to auscultation bilaterally, no wheeze, no rhonchi, breath sounds equal. HEART: Without murmurs gallops or rubs, regular rate and rhythm. ABDOMEN: Soft, nontender, no peritonitis. EXTREMITIES: No cyanosis, full range of motion of all the joints without pain or difficulty. NEUROLOGIC: Awake and alert, no acute motor or sensory deficits, no focal weakness. The patient is constantly moving his lower extremities. SKIN: No jaundice, no diaphoresis. Psychiatric: Cooperative, not suicidal. DIFFERENTIAL DIAGNOSIS: Withdrawal, medication reaction, psychosis, electrolyte imbalance, anemia, dysrhythmia, viral illness, among others. EMERGENCY DEPARTMENT PROCEDURES: MEDICAL DECISION MAKING: There is no leukocytosis. A mild anemia was seen however, this is baseline for the patient. The patient did have a lower platelet count, this is baseline looking back at previous testing. INR was somewhat elevated at 1.4, consistent with his liver disease. Potassium was high at 6. Repeat after treatment showed significant improvement with a value of around 4. No renal failure. Magnesium was low at 1.5. There were some liver enzyme elevations noted consistent with his history of liver disease. Ammonia level was not not elevated. Patient appeared to be in a euthyroid state. ECG showed a sinus rhythm, no ST elevation. Cardiac enzyme testing x 1 was not consistent with acute cardiac injury. Urinalysis did not show findings of infection. Aspirin, Tylenol and alcohol levels were undetectable. Urine tox was negative. Chest film showed some chronic change, no pneumonia or CHF. The patient received IV saline, 1 L in total. He received IV Phenergan for nausea, he received IV Ativan for agitation. He received oral gabapentin as this is a typical medication for him. The patient received insulin and glucose IV, IV sodium bicarbonate and an albuterol nebulizer. These meds were given to treat his hyperkalemia. As noted above, the patient's potassium is markedly improved since treatment. He does seem less agitated and is currently resting comfortably. The patient is in need of a hospital stay because of his hyperkalemia. He can be restarted on his typical psychiatric medications. He can be seen by psychiatry in consult. I spoke with the patient and case management, the on-call hospitalist was consulted. Prior/Outside records/notes reviewed: Discharge note from 07/18/2022 discussing his admission for cirrhosis, chronic liver disease and compression fractures. ECG per my interpretation: Indication was weakness. The ECG shows a normal sinus rhythm with a rate of 70. There is no ST elevation. There is a potential old inferior infarct. No PVCs. There is some poor R wave progression. The QTc is 444. Continuous Cardiac Monitoring per my interpretation: An order was placed for continuous cardiac monitoring. The monitor shows a rate of 70 with normal sinus rhythm. Imaging/x-ray results per my interpretation: Chest x-ray shows some chronic change, no pneumonia, pneumothorax or CHF. Chronic Medical/Social conditions affecting care: Alcohol and heroin abuse. Chronic liver disease. Care/Management discussed with: Case management and the on-call hospitalist. Level of care consideration(s): After review of the information above and other included data: --I believe the patient requires escalation of care to admission Critical Care Note: I have personally spent 55 minutes of critical care time in the direct management of this patient. This includes bedside care, interpretation of diagnostic studies, and testing, discussion with consultants, patient, and family members, and other required patient management activities. This 55 minutes is in excess of all separately billable procedures. DISPOSITION: Admission Past Med/Surg History Medical History Lumbar vertebral fracture 06/2022, fall at home, hospitalzied at [facility] for 2 weeks; no sx. Cirrhosis of liver end stage. In process of testing for liver transplant. History of recent hospitalization d/c from [facility] 12/11/22 psychiatric reasons. Anxiety/depression. Controlled at current. Lyme borreliosis Elevated bilirubin Compression fracture of L4 vertebra Vitamin D deficiency Closed compression fracture of L1 vertebra Alcohol abuse, in remission Venous stasis dermatitis Cirrhosis Abdominal ascites Pancytopenia Thrombocytopenia Type 2 diabetes mellitus Chronic hepatitis C with cirrhosis History of heroin abuse quit 2017 Gastroparesis Nocturnal hypoxia per pt, prescribed home O2 @ 2 LPM qHS and PRN daily in past but unable to obtain as of late r/t financial struggles. admits to using sister's oxygen at night when able. current: 2.5 L oxygen HS. Dysphagia on occasion Hepatitis C no treatment as of yet Fibromyalgia Recovering alcoholic quit November 2019 > brief relapse Mar 2022, was hospitalized [facility], high ammonia levels, once DC'ed from hospital, no more alcohol History of kidney stones GERD (gastroesophageal reflux disease) DM type 2 (diabetes mellitus, type 2) IDDM/no inuslin use over past 2 weeks/blood sugars have been running around 100 - pt monitors. [employer] Tester is aware and has nova with pcp on December 14 2022. Bipolar disorder PTSD (post-traumatic stress disorder) Depression Anxiety History of migraine History of DVT (deep vein thrombosis) "few years ago" LLE -- unk etiology -- per pt, no treatment at time of dx Hyperlipidemia Sleep apnea non compliant with CPAP COPD (chronic obstructive pulmonary disease) rare res inh use Alcoholic cirrhosis of liver Rib fracture years ago, healed, no current fractures AAA (abdominal aortic aneurysm) per pt, last evaluated 6 mo ago [facility] or [facility]? "around 5 cm" -->says was referred to vascular surgery but no appt as of yet Hypertension Surgical History History of colonoscopy History of ear surgery as a child History of esophagogastroduodenoscopy (EGD) History of tonsillectomy History of tooth extraction S/P excisional debridement LLE Family History Other No family history of adverse response to anesthesia No significant medical problems Social History Smoking Status: Current every day smoker Tobacco Type: Cigarettes and E-cigarettes / Vaping Cigarettes Per Day: couple cigs daily, vapes daily; Second Hand Exposure: No; Do You Dip or Chew Tobacco: No; Hx Alcohol Use: Yes Alcohol type: other Hx Substance Use: Yes Last Used Substance: Unknown Last Used Substance Other:: 2 years ago Substance Use Type Other:: last used meth 2017 Preferred Language: German Communication Ability: Effective It Risk And Assurance Manager Required: No Beliefs That Will Affect Care: None marital status: Single Current Living Situation: Alone and Other Current Living Situation Comment: prison apartments-independently How many Children do You have: 0 Feels Safe at Home: Yes Assistive Devices: Denture - Upper, Denture - Lower, Glasses and Oxygen - at Night Allergies Allergies Allergy/AdvReac Type Severity Reaction Status Date / Time No Known Allergies Allergy Verified 04/27/23 20:42 Home Meds Home Medications Medication Instructions Recorded Confirmed insulin glargine 100 unit/mL (3 0 unit subcut UD 08/20/20 04/27/23 mL) subcutaneous pen (Lantus Solostar U-100 Insulin) insulin lispro 100 unit/mL 0 unit subcut UD 08/20/20 04/27/23 subcutaneous solution (Humalog U-100 Insulin) ipratropium 0.5 mg-albuterol 3 mg 3 ml inhalation QID PRN Shortness 12/27/21 04/27/23 (2.5 mg base)/3 mL nebulization Of Breath Or Wheezing soln buprenorphine HCl 8 mg sublingual 8 mg sublingual QAM 03/30/22 04/27/23 tablet gabapentin 800 mg tablet 800 mg PO TID 06/12/22 04/27/23 spironolactone 100 mg tablet 100 mg PO HS 09/11/22 04/27/23 buprenorphine HCl 8 mg sublingual 16 mg sublingual QPM 04/27/23 04/27/23 tablet Previous Rx's Medication Instructions Recorded lactulose 20 gram/30 mL oral 20 g (30 mL) PO TID #60 mL 04/21/22 solution diclofenac sodium 1 % topical gel 4 g EXT QID PRN back pain #1 tube 07/18/22 (Voltaren Arthritis Pain) omeprazole 40 mg capsule,delayed 40 mg PO QAM #30 caps 07/18/22 release Results & Data (ED) Vital Signs Vital Signs - 24 hr 04/27/23 14:46 04/27/23 18:49 04/27/23 19:00 Temperature 36.4 C L Temperature Source Temporal Artery Scan Pulse Rate 70 65 Pulse Rate [Apical] 66 Respiratory Rate 16 17 Respiratory Effort / Characteristics Non-Labored Spontaneous Respiratory Depth Normal Normal Blood Pressure 132/70 Blood Pressure [Left Arm] 159/92 H Blood Pressure Mean 90 Blood Pressure Mean [Left Arm] 114 Blood Pressure Position Sitting Pulse Oximetry 96 97 Oxygen Delivery Method Room Air Room Air Sepsis Recent Fever Within 48 Hours No Sepsis New/Unexplained Change in Mental Status No Sepsis Action Taken by Nursing No Action Required 04/27/23 20:30 Temperature Temperature Source Pulse Rate Pulse Rate [Apical] 71 Respiratory Rate 17 Respiratory Effort / Characteristics Non-Labored Spontaneous Respiratory Depth Normal Blood Pressure Blood Pressure [Left Arm] 156/83 H Blood Pressure Mean Blood Pressure Mean [Left Arm] 107 Blood Pressure Position Pulse Oximetry 95 Oxygen Delivery Method Room Air Sepsis Recent Fever Within 48 Hours Sepsis New/Unexplained Change in Mental Status Sepsis Action Taken by Long-Term Medications Current Medication List: was personally reviewed by me Laboratory Data Attestation: I reviewed the patient's lab results. 04/27/23 15:26 04/27/23 20:14 Lab Results 04/27/23 04/27/23 04/27/23 Range/Units 15:26 15:33 18:52 WBC 6.08 (4.8-10.8) K/ul RBC 3.93 L (4.70-6.10) M/uL Hgb 12.4 L (14.0-18.0) g/dl Hct 36.3 L (42.0-52.0) % MCV 92.4 (80.0-100.0) fL MCH 31.6 (25.0-34.0) pg MCHC 34.2 (32.0-36.0) g/dL RDW Std Deviation 55.6 H (36.4-46.3) fL RDW Coeff of Nabeel 16.1 H (11.5-14.5) % Plt Count 50 L (130-400) K/uL MPV 10.6 (9.4-12.4) fL Immature Gran % (Auto) 0.2 % Neut % (Auto) 66.5 % Lymph % (Auto) 21.9 % Valencia % (Auto) 6.1 % Eos % (Auto) 4.3 % Baso % (Auto) 1.0 % Neut # (Auto) 4.05 (1.40-6.50) K/uL Lymph # (Auto) 1.33 (1.20-3.40) K/uL Valencia # (Auto) 0.37 (0.11-0.59) K/uL Eos # (Auto) 0.26 (0.00-0.50) K/uL Baso # (Auto) 0.06 (0.00-0.20) K/uL Immature Gran # (Auto) 0.01 (0.01-0.20) K/uL PT 15.5 H (9.0-12.0) Seconds INR 1.4 H (0.9-1.1) APTT 34 H (21-31) Seconds PTT Ratio 1.2 Sodium 134 L (136-145) mmol/L Potassium 6.0 H (3.5-5.1) mmol/L Chloride 107 (98-107) mmol/L Carbon Dioxide 22 (21-32) mmol/L Anion Gap 5 (3-11) BUN 12 (6-23) mg/dl Creatinine 0.79 (0.6-1.4) mg/dl Est Cr Clr Drug Dosing Not Reportable Est GFR ( Amer) 113.1 ml/min Est GFR (Non-Af Amer) 97.6 ml/min BUN/Creatinine Ratio 15.2 (10-20) Glucose 97 (70-99(Fasting)) mg/dl POC Glucose (70-99) mg/dl Calcium 8.6 (8.6-10.3) mg/dl Phosphorus 3.5 (2.5-4.9) mg/dl Magnesium 1.5 L (1.7-2.4) mg/dl Total Bilirubin 2.6 H (0.2-1.0) mg/dl AST 154 H (13-39) U/L ALT 65 H (7-52) U/L Alkaline Phosphatase 87 (34-104) U/L Ammonia 61.0 (18-72) umol/L Troponin I High Sens 3.7 (0-20) pg/ml Total Protein 6.8 (6.0-8.3) gm/dl Albumin 2.8 L (3.4-5.0) gm/dl Globulin 4.0 (2.5-4.0) gm/dl Albumin/Globulin Ratio 0.7 L (0.9-2) TSH 2.769 (0.300-4.500) uIu/ml Urine Color Urine Appearance (Clear) Urine pH (4.5-7.5) Ur Specific [place] (1.000-1.030) Urine Protein (Negative) Urine Glucose (UA) (Negative) Urine Ketones (Negative) Urine Blood (Negative) Urine Nitrite (Negative) Urine Bilirubin (Negative) Urine Urobilinogen (Negative) Ur Leukocyte Esterase (Negative) Urine WBC (Auto) (0-5) /hpf Urine RBC (Auto) (0-4) /hpf U Hyaline Cast (Auto) (0-5) /lpf U Epithel Cells (Auto) (0-5) /lpf Urine Bacteria (Auto) (Negative) Salicylates < 3.0 L (3.0-30) mg/dl Urine Opiates Screen (Neg) Ur Methadone, Qual (Neg) Acetaminophen < 3 L (10-30) ug/ml Urine Barbiturates (Neg) Ur Phencyclidine (PCP) (Neg) U Amphetamin/Meth Scrn (Neg) MDMA (Ecstasy) Screen (Neg) U Benzodiazepines Scrn (Neg) Ur Cocaine Metabolite (Neg) U Marijuana (THC) Screen (Neg) Ethyl Alcohol mg/dL < 10.0 (<10.0) mg/dl 04/27/23 04/27/23 04/27/23 Range/Units 20:00 20:05 20:14 WBC (4.8-10.8) K/ul RBC (4.70-6.10) M/uL Hgb (14.0-18.0) g/dl Hct (42.0-52.0) % MCV (80.0-100.0) fL MCH (25.0-34.0) pg MCHC (32.0-36.0) g/dL RDW Std Deviation (36.4-46.3) fL RDW Coeff of Nabeel (11.5-14.5) % Plt Count (130-400) K/uL MPV (9.4-12.4) fL Immature Gran % (Auto) % Neut % (Auto) % Lymph % (Auto) % Valencia % (Auto) % Eos % (Auto) % Baso % (Auto) % Neut # (Auto) (1.40-6.50) K/uL Lymph # (Auto) (1.20-3.40) K/uL Valencia # (Auto) (0.11-0.59) K/uL Eos # (Auto) (0.00-0.50) K/uL Baso # (Auto) (0.00-0.20) K/uL Immature Gran # (Auto) (0.01-0.20) K/uL PT (9.0-12.0) Seconds INR (0.9-1.1) APTT (21-31) Seconds PTT Ratio Sodium (136-145) mmol/L Potassium 4.1 D (3.5-5.1) mmol/L Chloride (98-107) mmol/L Carbon Dioxide (21-32) mmol/L Anion Gap (3-11) BUN (6-23) mg/dl Creatinine (0.6-1.4) mg/dl Est Cr Clr Drug Dosing Est GFR ( Amer) ml/min Est GFR (Non-Af Amer) ml/min BUN/Creatinine Ratio (10-20) Glucose (70-99(Fasting)) mg/dl POC Glucose 123 H (70-99) mg/dl Calcium (8.6-10.3) mg/dl Phosphorus (2.5-4.9) mg/dl Magnesium (1.7-2.4) mg/dl Total Bilirubin (0.2-1.0) mg/dl AST (13-39) U/L ALT (7-52) U/L Alkaline Phosphatase (34-104) U/L Ammonia (18-72) umol/L Troponin I High Sens (0-20) pg/ml Total Protein (6.0-8.3) gm/dl Albumin (3.4-5.0) gm/dl Globulin (2.5-4.0) gm/dl Albumin/Globulin Ratio (0.9-2) TSH (0.300-4.500) uIu/ml Urine Color Yellow Urine Appearance Clear (Clear) Urine pH 6.5 (4.5-7.5) Ur Specific [place] 1.015 (1.000-1.030) Urine Protein Trace H (Negative) Urine Glucose (UA) 2+ H (Negative) Urine Ketones Negative (Negative) Urine Blood 1+ H (Negative) Urine Nitrite Negative (Negative) Urine Bilirubin Negative (Negative) Urine Urobilinogen Negative (Negative) Ur Leukocyte Esterase Negative (Negative) Urine WBC (Auto) 0 (0-5) /hpf Urine RBC (Auto) 5-10 H (0-4) /hpf U Hyaline Cast (Auto) 0 (0-5) /lpf U Epithel Cells (Auto) 0-5 (0-5) /lpf Urine Bacteria (Auto) Negative (Negative) Salicylates (3.0-30) mg/dl Urine Opiates Screen Neg (Neg) Ur Methadone, Qual Neg (Neg) Acetaminophen (10-30) ug/ml Urine Barbiturates Neg (Neg) Ur Phencyclidine (PCP) Neg (Neg) U Amphetamin/Meth Scrn Neg (Neg) MDMA (Ecstasy) Screen Neg (Neg) U Benzodiazepines Scrn Neg (Neg) Ur Cocaine Metabolite Neg (Neg) U Marijuana (THC) Screen Neg (Neg) Ethyl Alcohol mg/dL (<10.0) mg/dl Administered Medications Magnesium Sulfate/Dextrose (Magnesium Sulfate / D5w) 1 gm in 100 mls @ 50 mls/hr IV Q2H REINA Stop: 04/28/23 01:59 Last Admin: 04/28/23 01:00 Dose: 50 mls/hr Documented By: Infusion: 04/28/23 00:41 Dose: Infused Documented By: Admin: 04/27/23 22:41 Dose: 50 mls/hr Documented By: AN Discontinued Medications Albuterol (Albuterol 0.083% Nebu Soln 3 Ml Vial) 2.5 mg NEB NOW STA; Protocol Stop: 04/27/23 18:24 Last Admin: 04/27/23 18:51 Dose: 2.5 mg Documented By: MT Dextrose (Dextrose 50% 50 Ml Syringe) 50 ml IV NOW ONE Stop: 04/27/23 18:24 Last Admin: 04/27/23 18:45 Dose: 50 ml Documented By: AUTUMN Gabapentin (Gabapentin 800 Mg Tab) 800 mg PO NOW STA Stop: 04/27/23 18:19 Last Admin: 04/27/23 19:40 Dose: 800 mg Documented By: SHAKIR Promethazine HCl (Phenergan) 12.5 mg in 50.5 mls @ 202 mls/hr IV NOW STA Stop: 04/27/23 18:32 Last Infusion: 04/27/23 19:51 Dose: Infused Documented By: Admin: 04/27/23 18:51 Dose: 202 mls/hr Documented By: AUTUMN Sodium Chloride (Nss) 500 mls @ 999 mls/hr IV .Q31M ONE Stop: 04/27/23 18:51 Last Infusion: 04/27/23 19:51 Dose: Infused Documented By: Admin: 04/27/23 18:55 Dose: 999 mls/hr Documented By: AUTUMN Sodium Chloride (Nss) 500 mls @ 999 mls/hr IV .Q31M ONE Stop: 04/27/23 20:14 Last Infusion: 04/27/23 20:31 Dose: Infused Documented By: Admin: 04/27/23 19:59 Dose: 999 mls/hr Documented By: SHAKIR Thiamine HCl 500 mg/ Sodium (Chloride) 55 mls @ 210 mls/hr IV NOW STA Stop: 04/27/23 21:57 Last Infusion: 04/27/23 23:08 Dose: Infused Documented By: Admin: 04/27/23 22:39 Dose: 210 mls/hr Documented By: SHAKIR Folic Acid 1 mg/ Syringe 10 mls @ 5 mls/min IV NOW STA Stop: 04/27/23 21:49 Last Admin: 04/27/23 22:39 Dose: 5 mls/min Documented By: SHAKIR Insulin Human Regular (Novolin-R Insulin Per Unit Charge) 10 units IV NOW STA Stop: 04/27/23 18:24 Last Admin: 04/27/23 18:55 Dose: 10 units Documented By: AUTUMN Co-signed By: SHAKIR Lorazepam (Lorazepam 1 Mg/1 Ml Syr Ed Inj Use) 1 mg IV ONE STA Stop: 04/27/23 18:19 Last Admin: 04/27/23 18:44 Dose: 1 mg Documented By: MT Sodium Bicarbonate (Sodium Bicarb 8.4% Inj 50 Meq/50 Ml Syr) 50 meq IV NOW STA Stop: 04/27/23 18:24 Last Admin: 04/27/23 18:47 Dose: 50 meq Documented By: MT Imaging Data Radiologist's Impression: Chest X-Ray 04/27/23 18:22 XR chest 1V portable CLINICAL HISTORY: weakness COMPARISON STUDY: Chest radiograph August 01, 2022. Chest CT June 02, 2019 2:00 PM FINDINGS: Lung volumes are normal. No pneumothorax or pleural effusion is present. Cardiomegaly is unchanged. There is no consolidation to suggest pneumonia. There is no evidence for pulmonary edema. Linear bibasilar densities favor atelectasis. IMPRESSION: No acute cardiopulmonary findings. ACT 112: Negative or not required by law. Electronically signed by: Remi Hernandez M.D. 04/27/2023 6:39 PM Discharge Plan Visit Data Chief Complaint: Illness Stated Complaint: FEELS OFF, STOPPED TAKING MEDS. ED Provider: Adriano Hsu Discharge Problem: Acute hyperkalemia, Acute dehydration, Weakness, Liver disease, Noncompliance with medications Patient Disposition: Admitted As Inpatient Condition: Fair Discharge Instructions Interventions: ED Discharge Assessment Last Done: 04/27/23 23:37
[2023-04-27 18:40] LABS: Magnesium 1.5 mg/dl (1.7-2.4); Phosphorus 3.5 mg/dl (2.5-4.9)
--- NOTE | 2023-04-27 18:40 | XRay Report ---
XR chest 1V portable CLINICAL HISTORY: weakness COMPARISON STUDY: Chest radiograph August 01, 2022. Chest CT June 02, 2019 2:00 PM FINDINGS: Lung volumes are normal. No pneumothorax or pleural effusion is present. Cardiomegaly is un changed. There is no consolidation to suggest pneumonia. There is no evidence for pulmonary edema. Li near bibasilar densities favor atelectasis. IMPRESSION: No acute cardiopulmonary findings. ACT 112: Negative or not required by law. Electronically signed by: Remi Hernandez M.D. 04/27/2023 6:39 PM
[2023-04-27 18:56] LABS: Thyroid Stimulating Hormone 2.769 uIu/ml (0.300-4.500)
[2023-04-27 19:25] LABS: Acetaminophen < 3 ug/ml (10-30); Salicylate < 3.0 mg/dl (3.0-30)
[2023-04-27 20:38] LABS: Appearance Urine Clear (Clear); Bacteria Urine Automated Negative (Negative); Bilirubin Urine Negative (Negative); Blood Urine 1+ (Negative); Cast Urine Automated 0 /lpf (0-5); Color Urine Yellow; Epithelial Cell Urine Auto 0-5 /lpf (0-5); Glucose Urine UA 2+ (Negative); Ketones Urine Negative (Negative); Leukocyte Esterase Urine Negative (Negative); Nitrite Urine Negative (Negative); Protein Urine Trace (Negative); Specific Gravity Urine 1.015 (1.000-1.030); Urobilinogen Urine Negative (Negative); WBC Urine Automated 0 /hpf (0-5); pH Urine 6.5 (4.5-7.5)
[2023-04-27 21:06] LABS: Amphetamines+Metham, Urine Neg (Neg); Barbiturates, Urine Neg (Neg); Benzodiazepine, Urine Neg (Neg); Cocaine, Urine Neg (Neg); MDMA (Ecstacy), Urine Neg (Neg); Marijuana, Urine Neg (Neg); Methadone, Urine Neg (Neg); Opiate, Urine Neg (Neg); Phencyclidine, Urine Neg (Neg)
[2023-04-27] MEDS ORDERED: THIAMINE HCL 500 MG in SODIUM CHLORIDE 0.9% 50 ML IV STA (21:42)
[2023-04-27] MEDS ORDERED: FOLIC ACID 1 MG in SYRINGE 9.8 ML IV STA (21:48)
--- NOTE | 2023-04-27 21:51 | History & Physical Report ---
Date of Service April 27, 2023 Assessment & Plan (1) Depression: (2) Recovering alcoholic: (3) Bipolar disorder: (4) Chronic hepatitis C with cirrhosis: (5) Cirrhosis of liver: (6) Noncompliance with medications: (7) Chronically on opiate therapy: (8) Hypertension: (9) AAA (abdominal aortic aneurysm): (10) Thrombocytopenia: (11) Hepatic encephalopathy: (12) Lethargy: Plan Lethargy/confusion/medical noncompliance- Patient for unknown reasons stop all medications except Subutex, and reports generally feeling unwell, but can be no more specific than that. He did have some nausea and vomiting Differential including not limited to: Recurrent hepatic encephalopathy, effects from being off psychiatric medications, urinary tract infection, Warnicke's encephalopathy Cirrhosis/hepatitis C/history of hepatic encephalopathy/portal venous hypertension/abdominal and paraesophageal varices- Resume patient's usual medications lactulose 20 g p.o. 3 times daily, spironolactone 100 mg at bedtime Ammonia level 61, will be repeated in the a.m. AST 154, ALT 65, and total bilirubin 2.6. INR added and is now 1.4, indicating mild coagulopathy Patient reportedly was previously being considered for liver transplant, not able to determine at this time with that he is still in that progress or not Bipolar disorder/depression/anxiety- Continue gabapentin 800 mg p.o. 3 times daily History of opiate use and alcoholism- Continue Subutex Placed on AWSS protocol Gave patient thiamine 500 mg IV x 1 and folic acid 1 mg IV x 1 Placed on thiamine 100 mg p.o. every morning and folic acid 1 mg p.o. every morning Diabetes mellitus- Reportedly has been on glargine 80 units subcu twice daily Reduce glargine to 20 units subcu twice daily Placed on Accu-Cheks with NovoLog SSI History of Present Illness Chief Complaint: The patient presents to the emergency department with generalized weakness, lethargy, nausea and vomiting, and recently stopped his medications except Subutex for unknown reasons Primary Care Provider: SHERINE Mcmahon The patient is a 62-year-old male with a past medical history including hepatic encephalopathy, hepatitis C, cirrhosis, portal venous hypertension, splenomegaly, abdominal varicosities with ascites, paraesophageal varices, L1 and L4 superior endplate compression deformities, urinary tract infection, gastroparesis, esophageal dysphagia, GERD, hyperammonemia, anasarca, anxiety, and AAA. The patient presents to the emergency department with complaints of generalized weakness, lethargy, nausea and vomiting for the past couple days after having stopped his medications except for Subutex, for unknown reasons. Allergies Allergy/AdvReac Type Severity Reaction Status Date / Time No Known Allergies Allergy Verified 04/27/23 20:42 Home Medications Medication Instructions Recorded Confirmed Type insulin glargine 100 unit/mL (3 0 unit subcut UD 08/20/20 04/27/23 History mL) subcutaneous pen (Lantus Solostar U-100 Insulin) insulin lispro 100 unit/mL 0 unit subcut UD 08/20/20 04/27/23 History subcutaneous solution (Humalog U-100 Insulin) ipratropium 0.5 mg-albuterol 3 mg 3 ml inhalation QID PRN Shortness 12/27/21 04/27/23 History (2.5 mg base)/3 mL nebulization Of Breath Or Wheezing soln buprenorphine HCl 8 mg sublingual 8 mg sublingual QAM 03/30/22 04/27/23 History tablet lactulose 20 gram/30 mL oral 20 g (30 mL) PO TID #60 mL 04/21/22 04/27/23 Rx solution gabapentin 800 mg tablet 800 mg PO TID 06/12/22 04/27/23 History diclofenac sodium 1 % topical gel 4 g EXT QID PRN back pain #1 tube 07/18/22 04/27/23 Rx (Voltaren Arthritis Pain) omeprazole 40 mg capsule,delayed 40 mg PO QAM #30 caps 07/18/22 04/27/23 Rx release spironolactone 100 mg tablet 100 mg PO HS 09/11/22 04/27/23 History buprenorphine HCl 8 mg sublingual 16 mg sublingual QPM 04/27/23 04/27/23 History tablet Past Med/Surg History Medical History (Updated 04/28/23 @ 02:59 by Sammy Shannon MD) Thrombocytopenia Chronic hepatitis C with cirrhosis Lumbar vertebral fracture 06/2022, fall at home, hospitalzied at [facility] for 2 weeks; no sx. Cirrhosis of liver end stage. In process of testing for liver transplant. History of recent hospitalization d/c from [facility] 12/11/22 psychiatric reasons. Anxiety/depression. Controlled at current. Lyme borreliosis Elevated bilirubin Compression fracture of L4 vertebra Vitamin D deficiency Closed compression fracture of L1 vertebra Alcohol abuse, in remission Venous stasis dermatitis Cirrhosis Abdominal ascites Pancytopenia Type 2 diabetes mellitus History of heroin abuse quit 2017 Gastroparesis Nocturnal hypoxia per pt, prescribed home O2 @ 2 LPM qHS and PRN daily in past but unable to obtain as of late r/t financial struggles. admits to using sister's oxygen at night when able. current: 2.5 L oxygen HS. Dysphagia on occasion Hepatitis C no treatment as of yet Fibromyalgia Recovering alcoholic quit November 2019 > brief relapse Mar 2022, was hospitalized [facility], high ammonia levels, once DC'ed from hospital, no more alcohol History of kidney stones GERD (gastroesophageal reflux disease) DM type 2 (diabetes mellitus, type 2) IDDM/no inuslin use over past 2 weeks/blood sugars have been running around 100 - pt monitors. Test Tech is aware and has nova with pcp on December 14 2022. Bipolar disorder PTSD (post-traumatic stress disorder) Depression Anxiety History of migraine History of DVT (deep vein thrombosis) "few years ago" LLE -- unk etiology -- per pt, no treatment at time of dx Hyperlipidemia Sleep apnea non compliant with CPAP COPD (chronic obstructive pulmonary disease) rare res inh use Alcoholic cirrhosis of liver Rib fracture years ago, healed, no current fractures AAA (abdominal aortic aneurysm) per pt, last evaluated 6 mo ago [facility]? "around 5 cm" -->says was referred to vascular surgery but no appt as of yet Hypertension Surgical History History of abdominal paracentesis S/P excisional debridement LLE History of colonoscopy History of ear surgery as a child History of tonsillectomy History of tooth extraction History of esophagogastroduodenoscopy (EGD) Family History Other No family history of adverse response to anesthesia No significant medical problems Social History Smoking Status: Current every day smoker Tobacco Type: Cigarettes Cigarettes Per Day: 1/2 pack; Second Hand Exposure: No; Do You Dip or Chew Tobacco: No; Hx Alcohol Use: Yes Alcohol type: other Hx Substance Use: Yes Last Used Substance: Unknown Last Used Substance Other:: denies use since 2018 Substance Use Type Other:: last used meth 2018 Preferred Language: Hebrew Communication Ability: Effective Tech Intern Required: No Beliefs That Will Affect Care: None marital status: Single Current Living Situation: Alone Current Living Situation Comment: retirement apartments-independently How many Children do You have: 0 Feels Safe at Home: Yes Safety Concerns: Feels Safe At This Time Assistive Devices: Denture - Upper, Denture - Lower, Glasses and Oxygen - at Night Review of Systems Review of Systems: The patient denies chest pain, palpitations, shortness of breath, dyspnea on exertion, cough, sore throat, fevers, chills, sweats, diarrhea , constipation, abdominal pain, pelvic pain, blood in urine or stool, dysuria, urinary frequency or urgency, lightheadedness, dizziness, headache, memory loss, loss of consciousness, rash, abnormal bruising or bleeding, imbalance, focal weakness, numbness or tingling in arms or legs, neck pain, or night sweats. The review of systems is otherwise negative other than for that already noted above, and at least 10 systems have been reviewed. Physical Exam Physical Exam: The patient is awake, alert and oriented 3, well developed and well nourished, normocephalic and atraumatic, lying in bed and in no acute distress. HEENT--PERRL, EOMI, mucous membranes and oropharynx dry. Neck--supple. No JVD. No bruits. Thyroid normal, trachea midline, no adenopathy. Heart--normal S1 and S2. No murmurs, rubs or gallops. Lungs--clear bilaterally, no respiratory distress, no accessory muscle use. Abdomen--normal bowel sounds and soft. Nontender. Nondistended Extremities--no cyanosis or clubbing. No edema. Dermatologic--normal skin turgor, normal color, no abnormal lymph nodes, no rash. Neurologic--cranial nerves II through XII grossly intact. Rheumatologic--normal range of motion. Psychiatric--flat affect Results & Data Results & Data Vital Signs (Past 12 Hours) Vital Signs Temp Pulse Pulse Resp BP BP Pulse Ox 04/27/23 20:30 71 17 156/83 H 95 04/27/23 19:00 66 17 159/92 H 97 04/27/23 18:49 65 04/27/23 14:46 36.4 C L 70 16 132/70 96 O2 Del Method 04/27/23 20:30 Room Air 04/27/23 19:00 Room Air 04/27/23 18:49 04/27/23 14:46 Room Air Laboratory Results Laboratory Results WBC 6.08 K/ul (4.8-10.8) 04/27/23 15: RBC 3.93 M/uL (4.70-6.10) L 04/27/23 15:26 Hgb 12.4 g/dl (14.0-18.0) L 04/27/23 15: Hct 36.3 % (42.0-52.0) L 04/27/23 15: MCV 92.4 fL (80.0-100.0) 04/27/23 15:26 MCH 31.6 pg (25.0-34.0) 04/27/23 15: MCHC 34.2 g/dL (32.0-36.0) 04/27/23 15:26 RDW Std Deviation 55.6 fL (36.4-46.3) H 04/27/23 15:26 RDW Coeff of Nabeel 16.1 % (11.5-14.5) H 04/27/23 15: Plt Count 50 K/uL (130-400) L 04/27/23 15:26 MPV 10.6 fL (9.4-12.4) 04/27/23 15:26 Immature Gran % (Auto) 0.2 % 04/27/23 15: Neut % (Auto) 66.5 % 04/27/23 15:26 Lymph % (Auto) 21.9 % 04/27/23 15:26 [place] % (Auto) 6.1 % 04/27/23 15:26 Eos % (Auto) 4.3 % 04/27/23 15:26 Baso % (Auto) 1.0 % 04/27/23 15:26 Neut # (Auto) 4.05 K/uL (1.40-6.50) 04/27/23 15:26 Lymph # (Auto) 1.33 K/uL (1.20-3.40) 04/27/23 15:26 [place] # (Auto) 0.37 K/uL (0.11-0.59) 04/27/23 15:26 Eos # (Auto) 0.26 K/uL (0.00-0.50) 04/27/23 15:26 Baso # (Auto) 0.06 K/uL (0.00-0.20) 04/27/23 15:26 Immature Gran # (Auto) 0.01 K/uL (0.01-0.20) 04/27/23 15:26 PT 15.5 Seconds (9.0-12.0) H 04/27/23 15:33 INR 1.4 (0.9-1.1) H 04/27/23 15:33 APTT 34 Seconds (21-31) H 04/27/23 15:33 PTT Ratio 1.2 04/27/23 15:33 Sodium 134 mmol/L (136-145) L 04/27/23 15:26 Potassium 4.1 mmol/L (3.5-5.1) D 04/27/23 20:14 Chloride 107 mmol/L (98-107) 04/27/23 15:26 Carbon Dioxide 22 mmol/L (21-32) 04/27/23 15:26 Anion Gap 5 (3-11) 04/27/23 15:26 BUN 12 mg/dl (6-23) 04/27/23 15:26 Creatinine 0.79 mg/dl (0.6-1.4) 04/27/23 15:26 Est Cr Clr Drug Dosing Not Reportable 04/27/23 15:26 Est GFR ( Amer) 113.1 ml/min 04/27/23 15:26 Est GFR (Non-Af Amer) 97.6 ml/min 04/27/23 15:26 BUN/Creatinine Ratio 15.2 (10-20) 04/27/23 15:26 Glucose 97 mg/dl (70-99(Fasting)) 04/27/23 15:26 POC Glucose 123 mg/dl (70-99) H 04/27/23 20:05 Calcium 8.6 mg/dl (8.6-10.3) 04/27/23 15:26 Phosphorus 3.5 mg/dl (2.5-4.9) 04/27/23 15:26 Magnesium 1.5 mg/dl (1.7-2.4) L 04/27/23 15: Total Bilirubin 2.6 mg/dl (0.2-1.0) H 04/27/23 15:26 AST 154 U/L (13-39) H 04/27/23 15:26 ALT 65 U/L (7-52) H 04/27/23 15:26 Alkaline Phosphatase 87 U/L (34-104) 04/27/23 15: Ammonia 61.0 umol/L (18-72) 04/27/23 15:26 Troponin I High Sens 3.7 pg/ml (0-20) 04/27/23 15: Total Protein 6.8 gm/dl (6.0-8.3) 04/27/23 15: Albumin 2.8 gm/dl (3.4-5.0) L 04/27/23 15: Globulin 4.0 gm/dl (2.5-4.0) 04/27/23 15: Albumin/Globulin Ratio 0.7 (0.9-2) L 04/27/23 15: TSH 2.769 uIu/ml (0.300-4.500) 04/27/23 15:26 Urine Color Yellow 04/27/23 20:00 Urine Appearance Clear (Clear) 04/27/23 20:00 Urine pH 6.5 (4.5-7.5) 04/27/23 20:00 Ur Specific [place] 1.015 (1.000-1.030) 04/27/23 20:00 Urine Protein Trace (Negative) H 04/27/23 20:00 Urine Glucose (UA) 2+ (Negative) H 04/27/23 20:00 Urine Ketones Negative (Negative) 04/27/23 20:00 Urine Blood 1+ (Negative) H 04/27/23 20:00 Urine Nitrite Negative (Negative) 04/27/23 20:00 Urine Bilirubin Negative (Negative) 04/27/23 20:00 Urine Urobilinogen Negative (Negative) 04/27/23 20:00 Ur Leukocyte Esterase Negative (Negative) 04/27/23 20:00 Urine WBC (Auto) 0 /hpf (0-5) 04/27/23 20:00 Urine RBC (Auto) 5-10 /hpf (0-4) H 04/27/23 20:00 U Hyaline Cast (Auto) 0 /lpf (0-5) 04/27/23 20:00 U Epithel Cells (Auto) 0-5 /lpf (0-5) 04/27/23 20:00 Urine Bacteria (Auto) Negative (Negative) 04/27/23 20:00 Salicylates < 3.0 mg/dl (3.0-30) L 04/27/23 18:52 Urine Opiates Screen Neg (Neg) 04/27/23 20:00 Ur Methadone, Qual Neg (Neg) 04/27/23 20:00 Acetaminophen < 3 ug/ml (10-30) L 04/27/23 18:52 Urine Barbiturates Neg (Neg) 04/27/23 20:00 Ur Phencyclidine (PCP) Neg (Neg) 04/27/23 20:00 U Amphetamin/Meth Scrn Neg (Neg) 04/27/23 20:00 MDMA (Ecstasy) Screen Neg (Neg) 04/27/23 20:00 U Benzodiazepines Scrn Neg (Neg) 04/27/23 20:00 Ur Cocaine Metabolite Neg (Neg) 04/27/23 20:00 U Marijuana (THC) Screen Neg (Neg) 04/27/23 20:00 Ethyl Alcohol mg/dL < 10.0 mg/dl (<10.0) 04/27/23 15:26 Impressions Chest X-Ray 04/27/23 18:22 XR chest 1V portable CLINICAL HISTORY: weakness COMPARISON STUDY: Chest radiograph August 01, 2022. Chest CT June 02, 2019 2:00 PM FINDINGS: Lung volumes are normal. No pneumothorax or pleural effusion is presen t. Cardiomegaly is unchanged. There is no consolidation to suggest pneumonia. There is no evidence for pulmonary edema. Linear bibasilar densities favor atelectasis. IMPRESSION: No acute cardiopulmonary findings. ACT 112: Negative or not required by law. Electronically signed by: Remi Hernandez M.D. 04/27/2023 6:39 PM Code Status & VTE Plan Code Status Full code VTE Prophylaxis Plan VTE Prophylaxis will be ordered: Yes PG Care Time/CCT Total # of Minutes Spent Total Time Spent with Patient: Total time spent is greater than 50% in coordination of care (as documented) at patient's floor/unit and/or counseling patient: Coding Level of Care Code 28169 INT INP/OBS CARE MIN Diagnoses Depression F32.9 Recovering alcoholic F10.21 Bipolar disorder F31.9 Chronic hepatitis C with cirrhosis B18.2; K74.60 Cirrhosis of liver K74.60 Noncompliance with medications Z91.148 Chronically on opiate therapy Z79.891 Primary hypertension I10 Hypertension type: primary hypertension AAA (abdominal aortic aneurysm) I71.4 Thrombocytopenia D69.6 Hepatic encephalopathy K76.82 Lethargy R53.83 (8) Hypertension Hypertension type: primary hypertension Qualified Code(s): I10 - Essential (primary) hypertension
[2023-04-27 22:25] LABS: INR 1.4 (0.9-1.1); Partial Thromboplastin Ratio 1.2; Partial Thromboplastin Time 34 Seconds (21-31); Prothrombin Time 15.5 Seconds (9.0-12.0)
[2023-04-27] MEDS: MAGNESIUM SULFATE / D5W 1 GM/100 ML BAG IV SCH (22:41)
[2023-04-28] MEDS ORDERED: LORazepam 2 MG in SYRINGE 1 ML IV PRN (00:38)
[2023-04-28] MEDS ORDERED: Ativan IV Alcohol Withdrawal--Active Protocol IV PRN (00:38)
[2023-04-28] MEDS ORDERED: LORazepam 3 MG in SYRINGE 1.5 ML IV PRN (00:38)
[2023-04-28] MEDS ORDERED: ONDANSETRON INJ 2 MG/ML 2 ML VIAL IV PRN (00:38)
[2023-04-28] MEDS ORDERED: LORazepam 1 MG in SYRINGE 0.5 ML IV PRN (00:38)
[2023-04-28] MEDS ORDERED: ALBUT/IPRATROP 3MG/0.5MG NEB 3 ML VIAL INH PRN (00:38)
[2023-04-28] MEDS: MAGNESIUM SULFATE / D5W 1 GM/100 ML BAG IV SCH (01:00)
[2023-04-28] MEDS ORDERED: GLUCOSE 40% GEL 15 GM TUBE PO PRN (01:15)
[2023-04-28] MEDS ORDERED: NSS + 20MEQ KCL 20 MEQ/1,000 ML BAG IV SCH (01:15)
[2023-04-28] MEDS ORDERED: GLUCAGON FOR INJ 1 MG VIAL IM PRN (01:15)
[2023-04-28] MEDS ORDERED: DEXTROSE 50% 50 ML SYRINGE IV PRN (01:15)
[2023-04-28] MEDS ORDERED: GLUCOSE 10 TAB/TUBE PO PRN (01:15)
[2023-04-28] MEDS ORDERED: CARBOHYDRATES FOR HYPOGLYCEMIA PO PRN (01:15)
[2023-04-28 06:42] LABS: Basophils # (auto) 0.04 K/uL (0.00-0.20); Eosinophils # (auto) 0.23 K/uL (0.00-0.50); Eosinophils % (auto) 5.6 %; Hematocrit (blood only) 31.2 % (42.0-52.0); Hemoglobin 10.5 g/dl (14.0-18.0); Lymphocytes # (auto) 1.59 K/uL (1.20-3.40); Mean Corpuscular Hemoglobin 31.3 pg (25.0-34.0); Mean Corpuscular Hgb Conc 33.7 g/dL (32.0-36.0); Mean Corpuscular Volume 92.9 fL (80.0-100.0); Mean Platelet Volume 10.9 fL (9.4-12.4); Monocytes % (auto) 9.8 %; Neutrophils # (auto) 1.82 K/uL (1.40-6.50); Neutrophils % (auto) 44.6 %; Platelet Count 37 K/uL (130-400); RDW Coefficient of Variation 15.9 % (11.5-14.5); RDW Standard Deviation 54.9 fL (36.4-46.3); Red Blood Count 3.36 M/uL (4.70-6.10); White Blood Count 4.08 K/ul (4.8-10.8)
[2023-04-28 07:21] LABS: Albumin Globulin Ratio 0.8 (0.9-2); Albumin Level 2.4 gm/dl (3.4-5.0); BUN Creatinine Ratio 14.5 (10-20); Calcium 7.8 mg/dl (8.6-10.3); Creatinine Clr Calc Pharmacy 125.4 ml/min; Est GFR (African American) 114.9 ml/min; Est GFR (Non-African American) 99.2 ml/min; Globulin 3.2 gm/dl (2.5-4.0); Magnesium 1.8 mg/dl (1.7-2.4); Potassium 4.4 mmol/L (3.5-5.1); Total Protein 5.6 gm/dl (6.0-8.3)
[2023-04-28] MEDS: FOLIC ACID 1 MG TAB PO SCH (08:24)
[2023-04-28] MEDS: PANTOprazole 40 MG TAB PO SCH (08:24)
[2023-04-28] MEDS: THIAMINE HCL 100 MG TAB PO SCH (08:24)
[2023-04-28] MEDS: GABAPENTIN 800 MG TAB PO SCH ×3 (08:24→20:30)
[2023-04-28] MEDS: LACTULOSE SYRUP 20 GM/30 ML UDC PO SCH ×3 (08:24→20:29)
[2023-04-28] MEDS: buprenorphine HCL 8 MG SUBL SL SCH (08:26)
[2023-04-28] MEDS: LANTUS PER UNIT CHARGE SQ SCH ×2 (08:57→20:27)
[2023-04-28] MEDS ORDERED: SPIRONOLACTONE 100 MG TAB PO SCH (21:00)
[2023-04-28] MEDS ORDERED: buprenorphine HCL 8 MG SUBL SL SCH (21:00)
[2023-04-29 07:35] LABS: Basophils # (auto) 0.04 K/uL (0.00-0.20); Basophils % (auto) 0.6 %; Eosinophils % (auto) 2.8 %; Hematocrit (blood only) 33.5 % (42.0-52.0); Hemoglobin 11.6 g/dl (14.0-18.0); Immature Granulocytes # (auto) 0.02 K/uL (0.01-0.20); Immature Granulocytes % (auto) 0.3 %; Lymphocytes # (auto) 1.26 K/uL (1.20-3.40); Lymphocytes % (auto) 17.4 %; Mean Corpuscular Hemoglobin 31.2 pg (25.0-34.0); Mean Corpuscular Hgb Conc 34.6 g/dL (32.0-36.0); Mean Corpuscular Volume 90.1 fL (80.0-100.0); Mean Platelet Volume 12.1 fL (9.4-12.4); Monocytes # (auto) 0.52 K/uL (0.11-0.59); Monocytes % (auto) 7.2 %; Neutrophils # (auto) 5.21 K/uL (1.40-6.50); Neutrophils % (auto) 71.7 %; Platelet Count 41 K/uL (130-400); RDW Coefficient of Variation 15.9 % (11.5-14.5); RDW Standard Deviation 52.7 fL (36.4-46.3); Red Blood Count 3.72 M/uL (4.70-6.10); White Blood Count 7.25 K/ul (4.8-10.8)
[2023-04-29] MEDS: LANTUS PER UNIT CHARGE SQ SCH (08:09)
[2023-04-29] MEDS: THIAMINE HCL 100 MG TAB PO SCH (08:11)
[2023-04-29] MEDS: FOLIC ACID 1 MG TAB PO SCH (08:11)
[2023-04-29] MEDS: GABAPENTIN 800 MG TAB PO SCH ×2 (08:11→15:37)
[2023-04-29] MEDS: buprenorphine HCL 8 MG SUBL SL SCH (08:11)
[2023-04-29] MEDS: PANTOprazole 40 MG TAB PO SCH (08:11)
[2023-04-29] MEDS: LACTULOSE SYRUP 20 GM/30 ML UDC PO SCH ×2 (08:12→15:37)
[2023-04-29 08:31] LABS: Albumin Globulin Ratio 0.7 (0.9-2); Albumin Level 2.6 gm/dl (3.4-5.0); Bilirubin,Total 2.1 mg/dl (0.2-1.0); Calcium 8.1 mg/dl (8.6-10.3); Creatinine Clr Calc Pharmacy 119.2 ml/min; Est GFR (African American) 112.5 ml/min; Est GFR (Non-African American) 97.1 ml/min; Globulin 3.6 gm/dl (2.5-4.0); Magnesium 1.5 mg/dl (1.7-2.4); Potassium 5.3 mmol/L (3.5-5.1); Total Protein 6.2 gm/dl (6.0-8.3)
--- NOTE | 2023-04-29 17:18 | Discharge Summary ---
Date of Service April 29, 2023 Admission HPI Per Admitting Provider The patient is a 62-year-old male with a past medical history including hepatic encephalopathy, hepatitis C, cirrhosis, portal venous hypertension, splenomegaly, abdominal varicosities with ascites, paraesophageal varices, L1 and L4 superior endplate compression deformities, urinary tract infection, gastroparesis, esophageal dysphagia, GERD, hyperammonemia, anasarca, anxiety, and AAA. The patient presents to the emergency department with complaints of generalized weakness, lethargy, nausea and vomiting for the past couple days after having stopped his medications except for Subutex, for unknown reasons. Principal Diagnosis Hyperkalemia possibly secondary to spironolactone Altered mental status due to noncompliance Discharge Exam The patient is awake, alert and oriented 3, well developed and well nourished, normocephalic and atraumatic, lying in bed and in no acute distress. HEENT--PERRL, EOMI, mucous membranes and oropharynx dry. Neck--supple. No JVD. No bruits. Thyroid normal, trachea midline, no adenopathy. Heart--normal S1 and S2. No murmurs, rubs or gallops. Lungs--clear bilaterally, no respiratory distress, no accessory muscle use. Abdomen--normal bowel sounds and soft. Nontender. Nondistended Extremities--no cyanosis or clubbing. No edema. Dermatologic--normal skin turgor, normal color, no abnormal lymph nodes, no rash. Neurologic--cranial nerves II through XII grossly intact. Rheumatologic--normal range of motion. Psychiatric--flat affect Discharge Data Allergies Allergy/AdvReac Type Severity Reaction Status Date / Time No Known Allergies Allergy Verified 04/27/23 20:42 Consultations 04/27/23 19:24 ED Decision to Admit Stat Hospital Course (1) Depression: (2) Recovering alcoholic: (3) Bipolar disorder: (4) Chronic hepatitis C with cirrhosis: (5) Cirrhosis of liver: (6) Noncompliance with medications: (7) Chronically on opiate therapy: (8) Hypertension: (9) AAA (abdominal aortic aneurysm): (10) Thrombocytopenia: (11) Hepatic encephalopathy: (12) Lethargy: Plan The patient presented to the hospital with reportedly altered mental status and confusion, however upon my exam next day his mental status was back to his baseline, not sure what caused it possible medication side effect, ammonia level was mildly elevated, electrolytes were within normal limits, LFTs were mildly elevated, INR was mildly elevated there was no evidence of ongoing infectious process, there is no significant electrolyte abnormality, patient stopped all of her medications he could not tell me why, however he stated that he will follow- up with complaint, lab workup was significant for hyperkalemia, that could be secondary to his prolactin, spironolactone was discontinued, expectant was substituted with Lasix. Patient is diagnosed with hepatitis C and liver cirrhosis, patient advised to follow-up with trade recruiter. Patient advised to follow-up with PCP to be referred to the pathologist. I discussed the case with the case briefer for alcohol rehab program. Patient was provided with resources for alcohol rehab program. Cirrhosis/hepatitis C/history of hepatic encephalopathy/portal venous hypertension/abdominal and paraesophageal varices- Resume dpatient's usual medications lactulose 20 g p.o. 3 times daily, stopped spironolactone because of hyperkalemia Ammonia level 61, will be repeated in the a.m. AST 154, ALT 65, and total bilirubin 2.6. INR added and is now 1.4, indicating mild coagulopathy Patient reportedly was previously being considered for liver transplant, not able to determine at this time with that he is still in that progress or not -The patient was advised to check her potassium level in 1 week Bipolar disorder/depression/anxiety- Continue gabapentin 800 mg p.o. 3 times daily History of opiate use and alcoholism- Continue Subutex Patient did not showed evidence of alcohol withdrawal symptom, continue folic acid and thiamine Diabetes mellitus- Reportedly has been on glargine 80 units subcu twice daily Reduce glargine to 20 units subcu twice daily Placed on Accu-Cheks with NovoLog SSI Nonfasting serum glucose within acceptable range between 100-160 Total Time Total Time Spent Total Time Spent (In Minutes): 45-minute Discharge Plan Discharge Items Patient Disposition: Home - Self-Care Reason For Visit: WEAKNESS, CONFUSION, HYPERKALEMIA Discharge Diagnosis: ETOH abuse Condition on Discharge: Fair Activity: Resume your previous activity Lifting: Gradually increase as tolerated Bathing: No limitations Sexual Activity: When tolerated Driving/Machine Use: No limitations Weightbearing: Full weightbearing Non-emergency contact: Primary Care Provider Call non-emergency contact if: you have any medication questions Follow-up/Referrals: Ina Hearn CRNP [Primary Care Provider] - Diet: Low Sodium (2gm) Addtl Attending Provider Instructions: Please follow with ETOH rehab program as you instructed . You Potassium was running High this could be secondary to one of your medications called Spironolactone . I stopped spironolactone and I substituted with Furosemide. Please contact your primary care doctor in one weeks to recheck your Potassium level. You are diagnosed with Hepatitis C , Hepatitis C is a serious disease please ask your primary care doctor to refer you to a trade recruiter Pending Studies at Discharge: No Stand-Alone Forms: My [facility] Xceedium, Smoking Cessation Medications and DC Order Prescriptions: New furosemide [Lasix] 40 mg tablet 40 mg PO DAILY Qty: 60 0RF Continued insulin lispro [Humalog U-100 Insulin] 100 unit/mL Solution 0 unit SUBCUT UD Patient Comments: only takes once daily 10 units because he only eats once daily insulin glargine [Lantus Solostar U-100 Insulin] 100 unit/mL (3 mL) Insulin Pen 0 unit SUBCUT UD Patient Comments: 20 units Rx Instructions: prescribed 80 units BID ipratropium-albuterol 0.5 mg-3 mg(2.5 mg base)/3 mL solution for nebulization 3 ml INHALATION QID PRN (Reason: Shortness Of Breath Or Wheezing) gabapentin 800 mg tablet 800 mg PO TID diclofenac sodium [Voltaren Arthritis Pain] 1 % Gel 4 g EXT QID PRN (Reason: back pain) Qty: 1 0RF Rx Instructions: purchase [id number] omeprazole 40 mg capsule,delayed release(DR/EC) 40 mg PO QAM Qty: 30 1RF Rx Instructions: note increased dose. buprenorphine HCl 8 mg tablet, sublingual 8 mg SUBLINGUAL QAM lactulose 20 gram/30 mL Solution 20 g PO TID Qty: 60 0RF Patient Comments: haven't been taking three times a day/usually take once or twice a day buprenorphine HCl 8 mg tablet, sublingual 16 mg SUBLINGUAL QPM Discontinued spironolactone 100 mg tablet 100 mg PO HS Discharge Orders: Discharge Order (Routine); Ordered 04/29/23 Ordered By: Mirza Hamilton/Other Patient Handouts: Alcoholism Resources Admission Data Admit Date/Time: 04/27/23 21:50 Attending Provider: Mirza Robles Admit Provider: Sammy Shannon Primary Care Provider: Ina Hearn Other Providers: Sammy Shannon Other Interventions: Discharge Summary Assessment (RN) Last Done: 04/29/23 16:06 Coding Level of Care Code 17195 INP/OBS DISCH >30 MIN Diagnoses Depression F32.9 Recovering alcoholic F10.21 Bipolar disorder F31.9 Chronic hepatitis C with cirrhosis B18.2; K74.60 Cirrhosis of liver K74.60 Noncompliance with medications Z91.148 Chronically on opiate therapy Z79.891 Primary hypertension I10 Hypertension type: primary hypertension AAA (abdominal aortic aneurysm) I71.4 Thrombocytopenia D69.6 Hepatic encephalopathy K76.82 Lethargy R53.83
== END 2023-04-29 17:40 | disposition home or self-care (01) | DRG 641 ==
LOC: SUATTDRO → ED 14:38 → 2S 21:50 → SUATTDRO 21:50 → 2S 23:37

== ENCOUNTER 2023-05-30 18:18 | Inpatient (IN) ==
--- NOTE | 2023-05-30 18:37 | Emergency Department Note ---
Impression & Plan Acute hepatic encephalopathy, Elevated lactic acid level, Pulmonary edema, Cellulitis ED Provider Note NAME: KAYODE GREENFIELD AGE: 62 SEX: M : 1960 ARRIVES VIA: Ambulance INFORMANT: [Patient][, ] ED PROVIDER(S): [Levi Collins MD] CHIEF COMPLAINT: Confusion MEDICAL DECISION MAKING: Patient presents due to concern for worsening confusion does have a known history of cirrhosis. IV was established patient was ordered Rocephin given bilateral lower extremity cellulitis. Thiamine ordered Patient also did have blood cultures completed. Patient was noted to have leukopenia with white count 4.7 anemia 12 platelet count of 51,000. No obvious active bleeding. Lactate initially 3 with ammonia 102. This certainly may contribute to the patient's encephalopathy. Repeat lactate of 2.5. Patient's chest x-ray does not show obvious pneumonia but do suspect an element of pulmonary edema. The patient was ordered IV Lasix. CT head negative. It is with the inpatient hospital service and the patient was admitted to medicine service. Discussion w/ other healthcare providers: Dr. Rae inpatient medicine service Prior/outside records reviewed: I did review discharge summary from April 29, [address] Busby. Patient was diagnosed with AMS due to noncompliance and hyperkalemia possibly secondary to spironolactone Differential diagnosis: Infection, dehydration, metabolic abnormality, hypo/hyperglycemia, electrolyte imbalance, anemia, UTI, pneumonia, thyroid dysfunction among others were considered. Diagnostics, as interpreted by me: ECG: . Normal sinus rhythm, rate of 74, normal SD and QRS, normal axis no ST elevations Cardiac monitoring: An order was placed for continuous cardiac monitoring. The monitor shows a rate of 75 with sinus rhythm. [Patient was placed on pulse oximetry] Medical decision rules: [none] Imaging studies: [I informally interpreted the patient's chest x-ray which does show likely pulmonary edema without obvious pneumonia with formal report to follow.] [] HPI: Patient presents due to concern for worsening confusion. The patient is unable to participate with the history and physical exam as he is not following commands. Patient per review of the medical history within the EMR notes that the patient does have a history of cirrhosis. PAST MEDICAL HISTORY: [See Below] PAST SURGICAL HISTORY: [See Below] SOCIAL HISTORY: [See Below] HOME MEDICATIONS: [See Below] ALLERGIES: [See Below] VITALS: [See Below] PHYSICAL EXAMINATION: GENERAL: Wearing glasses and a headband EYE EXAM: Normal conjunctiva. PERRL, no anisocoria and EOM's grossly intact w/o pain. OROPHARYNX: Moist mucus membranes, grossly normal dentition. NECK: Supple, no nuchal rigidity, no adenopathy, non-tender. No signs of meningismus. FROM of the neck with good chin to chest and neck extension. No stridor. LUNGS: Clear to auscultation. Normal chest wall mechanics. HEART: Tachycardic and rate, no MRG. ABDOMEN: Abdomen soft, abdominal distention but soft,, no masses, no rebound or guarding. BACK: No CVA TTP. SKIN: No rashes and no bruising. UPPER EXTREMITIES: Upper extremities are grossly normal. LOWER EXTREMITIES: 1+ bilateral lower extremity edema, redness that blanches of the left lower leg without obvious crepitus or fluctuance NEURO EXAM: Awake and alert but does not follow command, cranial nerves II through XII are grossly intact with normal speech but repetitive, moves all 4 extremities. Past Med/Surg History Medical History Urinary retention Hepatic encephalopathy Acute hyperkalemia Thrombocytopenia Chronic hepatitis C with cirrhosis Lumbar vertebral fracture 06/2022, fall at home, hospitalzied at [facility] for 2 weeks; no sx. History of recent hospitalization d/c from [facility] 12/11/22 psychiatric reasons. Anxiety/depression. Controlled at current. Lyme borreliosis Elevated bilirubin Compression fracture of L4 vertebra Vitamin D deficiency Closed compression fracture of L1 vertebra Alcohol abuse, in remission Venous stasis dermatitis Cirrhosis Abdominal ascites Pancytopenia Type 2 diabetes mellitus History of heroin abuse quit 2017 Gastroparesis Nocturnal hypoxia per pt, prescribed home O2 @ 2 LPM qHS and PRN daily in past but unable to obtain as of late r/t financial struggles. admits to using sister's oxygen at night when able. current: 2.5 L oxygen HS. Dysphagia on occasion Hepatitis C no treatment as of yet Fibromyalgia Recovering alcoholic quit November 2019 > brief relapse Mar 2022, was hospitalized [facility], high ammonia levels, once DC'ed from hospital, no more alcohol History of kidney stones GERD (gastroesophageal reflux disease) DM type 2 (diabetes mellitus, type 2) IDDM/no inuslin use over past 2 weeks/blood sugars have been running around 100 - pt monitors. Support Clerk is aware and has nova with pcp on December 14 2022. Bipolar disorder PTSD (post-traumatic stress disorder) Anxiety History of migraine History of DVT (deep vein thrombosis) "few years ago" LLE -- unk etiology -- per pt, no treatment at time of dx Hyperlipidemia Sleep apnea non compliant with CPAP COPD (chronic obstructive pulmonary disease) rare res inh use Alcoholic cirrhosis of liver Rib fracture years ago, healed, no current fractures AAA (abdominal aortic aneurysm) per pt, last evaluated 6 mo ago [facility]? "around 5 cm" -->says was referred to vascular surgery but no appt as of yet Hypertension Surgical History History of abdominal paracentesis S/P excisional debridement LLE History of colonoscopy History of ear surgery as a child History of tonsillectomy History of tooth extraction History of esophagogastroduodenoscopy (EGD) Family History Other No family history of adverse response to anesthesia No significant medical problems Social History Smoking Status: Former smoker Tobacco Type: Cigarettes Cigarettes Per Day: 1/2 pack; Second Hand Exposure: No; Do You Dip or Chew Tobacco: No; Hx Alcohol Use: Yes Alcohol type: other Hx Substance Use: Yes Last Used Substance: Unknown Last Used Substance Other:: denies use since 2018 Substance Use Type Other:: last used meth 2017 Preferred Language: [place] Communication Ability: Impaired Lime Supervisor Required: No Beliefs That Will Affect Care: None marital status: Single Current Living Situation: Alone Current Living Situation Comment: prison apartments-independently How many Children do You have: 0 Feels Safe at Home: Yes Assistive Devices: Bedside Commode, Cane and Walker Allergies Allergies Allergy/AdvReac Type Severity Reaction Status Date / Time No Known Allergies Allergy Verified 04/27/23 20:42 Home Meds Home Medications Medication Instructions Recorded Confirmed insulin glargine 100 unit/mL (3 0 unit subcut UD 08/20/20 05/30/23 mL) subcutaneous pen (Lantus Solostar U-100 Insulin) insulin lispro 100 unit/mL 0 unit subcut UD 08/20/20 05/30/23 subcutaneous solution (Humalog U-100 Insulin) ipratropium 0.5 mg-albuterol 3 mg 3 ml inhalation QID PRN Shortness 12/27/21 05/30/23 (2.5 mg base)/3 mL nebulization Of Breath Or Wheezing soln buprenorphine HCl 8 mg sublingual 8 mg sublingual QAM 03/30/22 05/30/23 tablet gabapentin 800 mg tablet 800 mg PO TID 06/12/22 05/30/23 buprenorphine HCl 8 mg sublingual 16 mg sublingual QPM 04/27/23 05/30/23 tablet Previous Rx's Medication Instructions Recorded lactulose 20 gram/30 mL oral 20 g (30 mL) PO TID #60 mL 04/21/22 solution diclofenac sodium 1 % topical gel 4 g EXT QID PRN back pain #1 tube 07/18/22 (Voltaren Arthritis Pain) omeprazole 40 mg capsule,delayed 40 mg PO QAM #30 caps 07/18/22 release furosemide 40 mg tablet (Lasix) 40 mg PO DAILY #60 tabs 04/29/23 Results & Data (ED) Vital Signs Vital Signs - 24 hr 05/30/23 18:07 Temperature 36.9 C Temperature Source Oral Pulse Rate 74 Respiratory Rate 18 Respiratory Effort / Characteristics Non-Labored Spontaneous Respiratory Depth Normal Respiratory Pattern Regular Blood Pressure 153/86 H Blood Pressure Mean 108 Pulse Oximetry 96 Oxygen Delivery Method Room Air Sepsis Recent Fever Within 48 Hours No Sepsis New/Unexplained Change in Mental Status Yes Sepsis Action Taken by Nursing No Action Required Home Medications Current Medication List: was personally reviewed by me Laboratory Data Attestation: I reviewed the patient's lab results. 06/02/23 05:20 06/02/23 05:20 Lab Results 05/30/23 05/30/23 05/30/23 Range/Units 18:46 19:49 20:46 WBC 4.72 L (4.8-10.8) K/ul RBC 4.05 L (4.70-6.10) M/uL Hgb 12.7 L (14.0-18.0) g/dl Hct 37.7 L (42.0-52.0) % MCV 93.1 (80.0-100.0) fL MCH 31.4 (25.0-34.0) pg MCHC 33.7 (32.0-36.0) g/dL RDW Std Deviation 56.0 H (36.4-46.3) fL RDW Coeff of Nabeel 16.1 H (11.5-14.5) % Plt Count 51 L (130-400) K/uL MPV 12.2 (9.4-12.4) fL Immature Gran % (Auto) 0.2 % Neut % (Auto) 63.2 % Lymph % (Auto) 24.2 % Tucker % (Auto) 7.4 % Eos % (Auto) 4.4 % Baso % (Auto) 0.6 % Neut # (Auto) 2.98 (1.40-6.50) K/uL Lymph # (Auto) 1.14 L (1.20-3.40) K/uL Tucker # (Auto) 0.35 (0.11-0.59) K/uL Eos # (Auto) 0.21 (0.00-0.50) K/uL Baso # (Auto) 0.03 (0.00-0.20) K/uL Immature Gran # (Auto) 0.01 (0.01-0.20) K/uL Sodium 138 (136-145) mmol/L Potassium 4.3 (3.5-5.1) mmol/L Chloride 107 (98-107) mmol/L Carbon Dioxide 25 (21-32) mmol/L Anion Gap 6 (3-11) BUN 11 (6-23) mg/dl Creatinine 0.92 (0.6-1.4) mg/dl Est Cr Clr Drug Dosing 117.9 ml/min Est GFR ( Amer) 104.4 ml/min Est GFR (Non-Af Amer) 90.1 ml/min BUN/Creatinine Ratio 12.0 (10-20) Glucose 94 (70-99(Fasting)) mg/dl Lactate 3.0 H* (0.4-2.0) mmol/L Calcium 8.1 L (8.6-10.3) mg/dl Magnesium 1.7 (1.7-2.4) mg/dl Total Bilirubin 4.5 H (0.2-1.0) mg/dl AST 88 H (13-39) U/L ALT 23 (7-52) U/L Alkaline Phosphatase 85 (34-104) U/L Ammonia 102.0 H (18-72) umol/L Total Protein 6.9 (6.0-8.3) gm/dl Albumin 2.8 L (3.4-5.0) gm/dl Globulin 4.1 H (2.5-4.0) gm/dl Albumin/Globulin Ratio 0.7 L (0.9-2) TSH 2.552 (0.300-4.500) uIu/ml Urine Color Dark Yellow Urine Appearance Clear (Clear) Urine pH 6.0 (4.5-7.5) Ur Specific [place]lake 1.015 (1.000-1.030) Urine Protein Trace H (Negative) Urine Glucose (UA) Negative (Negative) Urine Ketones Negative (Negative) Urine Blood 2+ H (Negative) Urine Nitrite Negative (Negative) Urine Bilirubin 1+ H (Negative) Urine Urobilinogen Positive H (Negative) Ur Leukocyte Esterase Negative (Negative) Urine WBC (Auto) 1-5 (0-5) /hpf Urine RBC (Auto) 10-30 H (0-4) /hpf U Hyaline Cast (Auto) 1-5 (0-5) /lpf U Epithel Cells (Auto) 5-10 H (0-5) /lpf Urine Bacteria (Auto) Negative (Negative) Urine Crystals Not Reportable Calcium Oxalate Crystal Present A (None Prsent) Ethyl Alcohol mg/dL < 10.0 (<10.0) mg/dl 05/30/23 Range/Units 21:25 WBC (4.8-10.8) K/ul RBC (4.70-6.10) M/uL Hgb (14.0-18.0) g/dl Hct (42.0-52.0) % MCV (80.0-100.0) fL MCH (25.0-34.0) pg MCHC (32.0-36.0) g/dL RDW Std Deviation (36.4-46.3) fL RDW Coeff of Nabeel (11.5-14.5) % Plt Count (130-400) K/uL MPV (9.4-12.4) fL Immature Gran % (Auto) % Neut % (Auto) % Lymph % (Auto) % Tucker % (Auto) % Eos % (Auto) % Baso % (Auto) % Neut # (Auto) (1.40-6.50) K/uL Lymph # (Auto) (1.20-3.40) K/uL Tucker # (Auto) (0.11-0.59) K/uL Eos # (Auto) (0.00-0.50) K/uL Baso # (Auto) (0.00-0.20) K/uL Immature Gran # (Auto) (0.01-0.20) K/uL Sodium (136-145) mmol/L Potassium (3.5-5.1) mmol/L Chloride (98-107) mmol/L Carbon Dioxide (21-32) mmol/L Anion Gap (3-11) BUN (6-23) mg/dl Creatinine (0.6-1.4) mg/dl Est Cr Clr Drug Dosing ml/min Est GFR ( Amer) ml/min Est GFR (Non-Af Amer) ml/min BUN/Creatinine Ratio (10-20) Glucose (70-99(Fasting)) mg/dl Lactate 2.5 H* (0.4-2.0) mmol/L Calcium (8.6-10.3) mg/dl Magnesium (1.7-2.4) mg/dl Total Bilirubin (0.2-1.0) mg/dl AST (13-39) U/L ALT (7-52) U/L Alkaline Phosphatase (34-104) U/L Ammonia (18-72) umol/L Total Protein (6.0-8.3) gm/dl Albumin (3.4-5.0) gm/dl Globulin (2.5-4.0) gm/dl Albumin/Globulin Ratio (0.9-2) TSH (0.300-4.500) uIu/ml Urine Color Urine Appearance (Clear) Urine pH (4.5-7.5) Ur Specific [place] (1.000-1.030) Urine Protein (Negative) Urine Glucose (UA) (Negative) Urine Ketones (Negative) Urine Blood (Negative) Urine Nitrite (Negative) Urine Bilirubin (Negative) Urine Urobilinogen (Negative) Ur Leukocyte Esterase (Negative) Urine WBC (Auto) (0-5) /hpf Urine RBC (Auto) (0-4) /hpf U Hyaline Cast (Auto) (0-5) /lpf U Epithel Cells (Auto) (0-5) /lpf Urine Bacteria (Auto) (Negative) Urine Crystals Calcium Oxalate Crystal (None Prsent) Ethyl Alcohol mg/dL (<10.0) mg/dl Administered Medications Buprenorphine HCl (Buprenorphine Hcl 8 Mg Subl) 8 mg SL QAM REINA Stop: 06/30/23 11:14 Last Admin: 06/02/23 08:40 Dose: 8 mg Documented By: Admin: 06/01/23 09:26 Dose: 8 mg Documented By: Admin: 05/31/23 12:43 Dose: 8 mg Documented By: NYA Buprenorphine HCl (Buprenorphine Hcl 8 Mg Subl) 16 mg SL QPM REINA Stop: 06/30/23 20:59 Last Admin: 06/01/23 21:14 Dose: 16 mg Documented By: Admin: 05/31/23 20:23 Dose: 16 mg Documented By: MARY Folic Acid (Folic Acid 1 Mg Tab) 1 mg PO QAM REINA Stop: 07/01/23 08:59 Last Admin: 06/02/23 08:38 Dose: 1 mg Documented By: Admin: 06/01/23 09:18 Dose: 1 mg Documented By: SOFIE Furosemide (Furosemide 40 Mg Tab) 40 mg PO DAILY [facility] Stop: 06/30/23 11:14 Last Admin: 06/02/23 08:38 Dose: 40 mg Documented By: Admin: 06/01/23 09:19 Dose: 40 mg Documented By: Admin: 05/31/23 12:42 Dose: 40 mg Documented By: NYA Heparin Sodium (Porcine) (Heparin Sod 5,000 Unit/0.5 Ml Vial) 5,000 units SQ Q12 REINA Stop: 06/30/23 08:59 Last Admin: 06/02/23 08:37 Dose: 5,000 units Documented By: Admin: 06/01/23 20:45 Dose: 5,000 units Documented By: Admin: 06/01/23 09:18 Dose: 5,000 units Documented By: Admin: 05/31/23 20:23 Dose: 5,000 units Documented By: Admin: 05/31/23 09:15 Dose: 5,000 units Documented By: NYA Ceftriaxone Sodium 2,000 mg/ (Dextrose) 50 mls @ 100 mls/hr IV Q24H [facility]; Protocol Stop: 06/02/23 19:59 Last Infusion: 06/01/23 20:49 Dose: Infused Documented By: Admin: 06/01/23 19:57 Dose: 100 mls/hr Documented By: Infusion: 05/31/23 20:31 Dose: Infused Documented By: Admin: 05/31/23 19:54 Dose: 100 mls/hr Documented By: MARY Magnesium Sulfate/Dextrose (Magnesium Sulfate / D5w) 1 gm in 100 mls @ 50 mls/hr IV Q2H [facility] Stop: 06/02/23 20:59 Last Admin: 06/02/23 15:47 Dose: 50 mls/hr Documented By: DANIEL Insulin Aspart (Insulin Aspart Per Unit Charge) 0 units SC ACHS [facility] Stop: 06/30/23 05:59 Last Admin: 06/02/23 13:15 Dose: Not Given Documented By: Admin: 06/02/23 08:00 Dose: Not Given Documented By: Admin: 06/01/23 20:44 Dose: Not Given Documented By: Admin: 06/01/23 18:10 Dose: 3 units Documented By: SOFIE Co-signed By: MARCI Admin: 06/01/23 13:24 Dose: 4 units Documented By: SOFIE Co-signed By: MARCI Lactulose (Lactulose Syrup 20 Gm/30 Ml Udc) 30 gm PO TID [facility] Stop: 07/01/23 13:59 Last Admin: 06/02/23 13:52 Dose: Not Given Documented By: Admin: 06/02/23 08:37 Dose: 30 gm Documented By: Admin: 06/01/23 20:44 Dose: 30 gm Documented By: Admin: 06/01/23 13:20 Dose: 30 gm Documented By: SOFIE Pantoprazole Sodium (Pantoprazole 40 Mg Tab) 40 mg PO QAM [facility]; Protocol Stop: 06/30/23 08:59 Last Admin: 06/02/23 08:37 Dose: 40 mg Documented By: Admin: 06/01/23 09:19 Dose: 40 mg Documented By: Admin: 05/31/23 12:42 Dose: 40 mg Documented By: NYA Rifaximin (Rifaximin 550 Mg Tablet) 550 mg PO BID [facility] Stop: 07/01/23 10:59 Last Admin: 06/02/23 08:37 Dose: 550 mg Documented By: Admin: 06/01/23 20:45 Dose: 550 mg Documented By: Admin: 06/01/23 11:27 Dose: 550 mg Documented By: SOFIE Spironolactone (Spironolactone 25 Mg Tab) 50 mg PO DAILY [facility] Stop: 06/30/23 12:59 Last Admin: 06/02/23 08:37 Dose: 50 mg Documented By: Admin: 06/01/23 09:18 Dose: 50 mg Documented By: Admin: 05/31/23 17:39 Dose: 50 mg Documented By: RANDELL Tamsulosin HCl (Tamsulosin Hcl 0.4 Mg Cap) 0.4 mg PO HS [facility] Stop: 06/30/23 20:59 Last Admin: 06/01/23 21:14 Dose: 0.4 mg Documented By: Admin: 05/31/23 20:27 Dose: 0.4 mg Documented By: MARY Thiamine HCl (Thiamine Hcl 100 Mg Tab) 100 mg PO QAM [facility] Stop: 07/01/23 08:59 Last Admin: 06/02/23 08:38 Dose: 100 mg Documented By: Admin: 06/01/23 09:18 Dose: 100 mg Documented By: SOFIE Discontinued Medications Diazepam (Diazepam 2 Mg Tablet) 2 mg PO NOW ONE Stop: 06/02/23 13:00 Last Admin: 06/02/23 13:03 Dose: 2 mg Documented By: DANIEL Furosemide (Furosemide 40 Mg/4 Ml Vial) 40 mg IV ONE ONE Stop: 05/30/23 20:30 Last Admin: 05/30/23 21:33 Dose: 40 mg Documented By: JAIMIE Ceftriaxone Sodium (Rocephin) 2,000 mg in 50 mls @ 100 mls/hr IV NOW STA Stop: 05/30/23 20:58 Last Infusion: 05/30/23 22:19 Dose: Infused Documented By: Admin: 05/30/23 21:36 Dose: 100 mls/hr Documented By: JAIMIE Calcium Gluconate () 1,000 mg in 60 mls @ 240 mls/hr IV NOW STA Stop: 05/30/23 20:43 Last Infusion: 05/30/23 22:19 Dose: Infused Documented By: Admin: 05/30/23 21:26 Dose: 240 mls/hr Documented By: JAIMIE Metronidazole (Flagyl) 500 mg in 100 mls @ 100 mls/hr IV Q8H [facility]; Protocol Stop: 06/02/23 00:00 Last Infusion: 06/02/23 01:39 Dose: Infused Documented By: Admin: 06/02/23 00:02 Dose: 100 mls/hr Documented By: Infusion: 06/01/23 19:10 Dose: Infused Documented By: Admin: 06/01/23 18:09 Dose: 100 mls/hr Documented By: Infusion: 06/01/23 13:19 Dose: Infused Documented By: Admin: 06/01/23 11:04 Dose: 100 mls/hr Documented By: Infusion: 06/01/23 01:00 Dose: Infused Documented By: Admin: 05/31/23 23:46 Dose: 100 mls/hr Documented By: Infusion: 05/31/23 18:49 Dose: Infused Documented By: Admin: 05/31/23 17:39 Dose: 100 mls/hr Documented By: Infusion: 05/31/23 10:19 Dose: Infused Documented By: Admin: 05/31/23 09:19 Dose: 100 mls/hr Documented By: Infusion: 05/31/23 02:38 Dose: Infused Documented By: Admin: 05/31/23 01:28 Dose: 100 mls/hr Documented By: ROHIT Thiamine HCl 100 mg/ Syringe 10 mls @ 2 mls/min IV QAM [facility] Stop: 06/30/23 08:59 Last Admin: 05/31/23 09:15 Dose: 2 mls/min Documented By: NYA Folic Acid 1 mg/ Syringe 10 mls @ 5 mls/min IV QAM [facility] Stop: 06/30/23 08:59 Last Admin: 05/31/23 09:15 Dose: 5 mls/min Documented By: NYA Insulin Aspart (Insulin Aspart Per Unit Charge) 0 units SC Q6 [facility] Stop: 06/30/23 05:59 Last Admin: 06/01/23 05:59 Dose: Not Given Documented By: Admin: 05/31/23 23:46 Dose: Not Given Documented By: Admin: 05/31/23 18:23 Dose: Not Given Documented By: Admin: 05/31/23 13:53 Dose: Not Given Documented By: Admin: 05/31/23 08:27 Dose: Not Given Documented By: NYA Co-signed By: AKUA Lactulose (Lactulose Syrup 20 Gm/30 Ml Udc) 30 gm PO NOW STA Stop: 05/30/23 20:31 Last Admin: 05/30/23 21:31 Dose: 30 gm Documented By: JAIMIE Lactulose (Lactulose Syrup 20 Gm/30 Ml Udc) 20 gm PO TID [facility] Stop: 06/30/23 08:59 Last Admin: 06/01/23 09:18 Dose: 20 gm Documented By: Admin: 05/31/23 20:23 Dose: 20 gm Documented By: Admin: 05/31/23 12:43 Dose: 20 gm Documented By: Admin: 05/31/23 09:16 Dose: 20 gm Documented By: NYA Potassium Chloride (Potassium Chloride Crtab 20 Meq Tabcr) 40 meq PO NOW STA Stop: 06/02/23 15:00 Last Admin: 06/02/23 16:04 Dose: Not Given Documented By: DANIEL Potassium Chloride (Potassium Chloride 20 Meq/15 Ml Udc) 40 meq PO NOW STA Stop: 06/02/23 16:04 Last Admin: 06/02/23 16:41 Dose: 40 meq Documented By: DANIEL Imaging Data Radiologist's Impression: Chest X-Ray 05/30/23 18:55 XR chest 1V portable CLINICAL HISTORY: weakness COMPARISON STUDY: Chest radiograph April 27, 2023. Chest CT June 02, 2021. FINDINGS: There is no pneumothorax or pleural effusion. Low lung volumes are unchanged. Pulmonary vascular congestion is present. There may be mild pulmonary edema. There is no consolidation to suggest pneumonia. Cardiomegaly is unchanged. Mediastinal contours are stable. IMPRESSION: Cardiomegaly. Pulmonary vascular congestion with suspected mild pulmonary edema. ACT 112: Negative or not required by law. Electronically signed by: Remi Hernandez M.D. 05/31/2023 7:[address] 05/30/23 18:55 Exam(s): CT HEAD Without Contrast EXAM: CT Head Without Intravenous Contrast CLINICAL HISTORY: Reason for exam: confusion. TECHNIQUE: Axial computed tomography images of the head/brain without intravenous contrast. CTDI is 76.62 mGy and DLP is 1406.31 mGy-cm. Automated exposure control was utilized for the study. A dose lowering technique was utilized adhering to the principles of ALARA. COMPARISON: No relevant prior studies available. FINDINGS: No acute intracranial hemorrhage. No midline shift or mass effect. The territorial kasper-white matter differentiation is maintained throughout. Age-related cerebral volume loss. Periventricular and subcortical white matter hypoattenuation, consistent with chronic microangiopathy. The visualized orbits appear grossly unremarkable. The calvarium is intact. The visualized paranasal sinuses and mastoid air cells are grossly clear. IMPRESSION: No acute intracranial hemorrhage, midline shift, or mass effect. Electronically signed by: Gildardo Peña MD 05/30/23 20:12 PM Discharge Plan Visit Data Chief Complaint: Altered Mental Status ED Provider: Levi Collins Discharge Problem: Acute hepatic encephalopathy, Elevated lactic acid level, Pulmonary edema, Cellulitis Patient Disposition: Admitted As Inpatient Discharge Instructions Interventions: ED Discharge Assessment Last Done: 05/30/23 23:49 Discharge Problem: Pulmonary edema Qualifiers: Chronicity: acute Qualified Code(s): J81.0 - Acute pulmonary edema Cellulitis Qualifiers: Site of cellulitis: extremity Site of cellulitis of extremity: lower extremity Laterality: left Qualified Code(s): L03.116 - Cellulitis of left lower limb
[2023-05-30 19:44] LABS: Basophils # (auto) 0.03 K/uL (0.00-0.20); Basophils % (auto) 0.6 %; Eosinophils # (auto) 0.21 K/uL (0.00-0.50); Eosinophils % (auto) 4.4 %; Hematocrit (blood only) 37.7 % (42.0-52.0); Hemoglobin 12.7 g/dl (14.0-18.0); Immature Granulocytes # (auto) 0.01 K/uL (0.01-0.20); Immature Granulocytes % (auto) 0.2 %; Lymphocytes # (auto) 1.14 K/uL (1.20-3.40); Lymphocytes % (auto) 24.2 %; Mean Corpuscular Hemoglobin 31.4 pg (25.0-34.0); Mean Corpuscular Hgb Conc 33.7 g/dL (32.0-36.0); Mean Corpuscular Volume 93.1 fL (80.0-100.0); Mean Platelet Volume 12.2 fL (9.4-12.4); Monocytes # (auto) 0.35 K/uL (0.11-0.59); Monocytes % (auto) 7.4 %; Neutrophils # (auto) 2.98 K/uL (1.40-6.50); Neutrophils % (auto) 63.2 %; Platelet Count 51 K/uL (130-400); RDW Coefficient of Variation 16.1 % (11.5-14.5); Red Blood Count 4.05 M/uL (4.70-6.10); White Blood Count 4.72 K/ul (4.8-10.8)
[2023-05-30 20:00] LABS: Albumin Globulin Ratio 0.7 (0.9-2); Albumin Level 2.8 gm/dl (3.4-5.0); Bilirubin,Total 4.5 mg/dl (0.2-1.0); Calcium 8.1 mg/dl (8.6-10.3); Creatinine Clr Calc Pharmacy 117.9 ml/min; Est GFR (African American) 104.4 ml/min; Est GFR (Non-African American) 90.1 ml/min; Globulin 4.1 gm/dl (2.5-4.0); Magnesium 1.7 mg/dl (1.7-2.4); Potassium 4.3 mmol/L (3.5-5.1); Total Protein 6.9 gm/dl (6.0-8.3)
--- NOTE | 2023-05-30 20:13 | CT Scan Report ---
Exam(s): CT HEAD Without Contrast EXAM: CT Head Without Intravenous Contrast CLINICAL HISTORY: Reason for exam: confusion. TECHNIQUE: Axial computed tomography images of the head/brain without intravenous contrast. CTDI is 76.62 mGy and DLP is 1406.31 mGy-cm. Automated exposure control was utilized for the study. A dose lowering technique was utilized adhering to the principles of ALARA. COMPARISON: No relevant prior studies available. FINDINGS: No acute intracranial hemorrhage. No midline shift or mass effect. The territorial kasper-white matter differentiation is maintained throughout. Age-related cerebral volume loss. Periventricular and subcortical white matter hypoattenuation, consistent with chronic microangiopathy. The visualized orbits appear grossly unremarkable. The calvarium is intact. The visualized paranasal sinuses and mastoid air cells are grossly clear. IMPRESSION: No acute intracranial hemorrhage, midline shift, or mass effect. Electronically signed by: Gildardo Peña MD 05/30/23 20:12 PM
[2023-05-30 20:15] LABS: Thyroid Stimulating Hormone 2.552 uIu/ml (0.300-4.500)
[2023-05-30] MEDS ORDERED: FUROSEMIDE 40 MG/4 ML VIAL IV ONE (20:29)
[2023-05-30] MEDS ORDERED: CALCIUM GLUCONATE 1,000 MG/60 ML BAG IV STA (20:29)
[2023-05-30] MEDS ORDERED: cefTRIAXone SODIUM 2,000 MG/50 ML BAG IV STA (20:29)
[2023-05-30] MEDS ORDERED: LACTULOSE SYRUP 20 GM/30 ML UDC PO STA (20:30)
[2023-05-30 21:04] LABS: Appearance Urine Clear (Clear); Bacteria Urine Automated Negative (Negative); Blood Urine 2+ (Negative); Color Urine Dark Yellow; Glucose Urine UA Negative (Negative); Ketones Urine Negative (Negative); Leukocyte Esterase Urine Negative (Negative); Nitrite Urine Negative (Negative); Protein Urine Trace (Negative); Specific Gravity Urine 1.015 (1.000-1.030); Urobilinogen Urine Positive (Negative)
[2023-05-30 21:21] LABS: Bilirubin Urine 1+ (Negative)
[2023-05-30 21:24] LABS: Calcium Oxalate Crystals Urine Present (None Prsent)
--- NOTE | 2023-05-30 21:57 | History & Physical Report ---
Date of Service May 30, 2023 Assessment & Plan (1) Confusion and disorientation: (2) Hepatic encephalopathy: (3) Hyperammonemia: (4) Bipolar disorder: (5) Chronic hepatitis C with cirrhosis: (6) Opioid use disorder: (7) Alcoholism: Plan Confusion and disorientation/hepatic encephalopathy/hyperammonemia- Patient is unable to contribute to HPI or review of systems Ammonia level 102.0 N.p.o. except essential medications Follow all cultures Lactulose 20 g p.o. 3 times daily Ceftriaxone 2 g IV daily Flagyl 500 mg IV every 8 hours Thiamine 100 mg IV daily Folic acid 1 mg IV daily Holding any medications that may affect mentation: Gabapentin, buprenorphine, Diabetes mellitus- Hold insulin- Placed on Accu-Cheks with NovoLog SSI GERD- Change omeprazole by mouth to pantoprazole IV Bipolar disorder/depression/anxiety/alcoholism- Alcohol level less than 10 History of Present Illness Chief Complaint: The patient was brought to the emergency department due to worsening confusion. He is unable to contribute to his HPI or review of systems Primary Care Provider: SHERINE Mcmahon The patient is a 62-year-old male with past medical history including bipolar disorder, recovering alcoholism, chronic hepatitis C with cirrhosis, gastroparesis, GERD, esophageal dysphagia, hepatic encephalopathy, hyperammonemia, opiate use disorder, hypertension, and determined to not be a transplant candidate from letter on 05/16/2023 due to poor functional status and advanced cardiac disease Allergies Allergy/AdvReac Type Severity Reaction Status Date / Time No Known Allergies Allergy Verified 04/27/23 20:42 Home Medications Medication Instructions Recorded Confirmed Type insulin glargine 100 unit/mL (3 0 unit subcut UD 08/20/20 05/30/23 History mL) subcutaneous pen (Lantus Solostar U-100 Insulin) insulin lispro 100 unit/mL 0 unit subcut UD 08/20/20 05/30/23 History subcutaneous solution (Humalog U-100 Insulin) ipratropium 0.5 mg-albuterol 3 mg 3 ml inhalation QID PRN Shortness 12/27/21 05/30/23 History (2.5 mg base)/3 mL nebulization Of Breath Or Wheezing soln buprenorphine HCl 8 mg sublingual 8 mg sublingual QAM 03/30/22 05/30/23 History tablet lactulose 20 gram/30 mL oral 20 g (30 mL) PO TID #60 mL 04/21/22 05/30/23 Rx solution gabapentin 800 mg tablet 800 mg PO TID 06/12/22 05/30/23 History diclofenac sodium 1 % topical gel 4 g EXT QID PRN back pain #1 tube 07/18/22 05/30/23 Rx (Voltaren Arthritis Pain) omeprazole 40 mg capsule,delayed 40 mg PO QAM #30 caps 07/18/22 05/30/23 Rx release buprenorphine HCl 8 mg sublingual 16 mg sublingual QPM 04/27/23 05/30/23 History tablet furosemide 40 mg tablet (Lasix) 40 mg PO DAILY #60 tabs 04/29/23 05/30/23 Rx Past Med/Surg History Medical History (Updated 05/31/23 @ 02:20 by Sammy Shannon MD) Hepatic encephalopathy Acute hyperkalemia Thrombocytopenia Chronic hepatitis C with cirrhosis Lumbar vertebral fracture 06/2022, fall at home, hospitalzied at [facility] for 2 weeks; no sx. History of recent hospitalization d/c from [place] 12/11/22 psychiatric reasons. Anxiety/depression. Controlled at current. Lyme borreliosis Elevated bilirubin Compression fracture of L4 vertebra Vitamin D deficiency Closed compression fracture of L1 vertebra Alcohol abuse, in remission Venous stasis dermatitis Cirrhosis Abdominal ascites Pancytopenia Type 2 diabetes mellitus History of heroin abuse quit 2017 Gastroparesis Nocturnal hypoxia per pt, prescribed home O2 @ 2 LPM qHS and PRN daily in past but unable to obtain as of late r/t financial struggles. admits to using sister's oxygen at night when able. current: 2.5 L oxygen HS. Dysphagia on occasion Hepatitis C no treatment as of yet Fibromyalgia Recovering alcoholic quit November 2019 > brief relapse Mar 2022, was hospitalized [facility], high ammonia levels, once DC'ed from hospital, no more alcohol History of kidney stones GERD (gastroesophageal reflux disease) DM type 2 (diabetes mellitus, type 2) IDDM/no inuslin use over past 2 weeks/blood sugars have been running around 100 - pt monitors. [employer] is aware and has nova with pcp on December 14 2022. Bipolar disorder PTSD (post-traumatic stress disorder) Anxiety History of migraine History of DVT (deep vein thrombosis) "few years ago" LLE -- unk etiology -- per pt, no treatment at time of dx Hyperlipidemia Sleep apnea non compliant with CPAP COPD (chronic obstructive pulmonary disease) rare res inh use Alcoholic cirrhosis of liver Rib fracture years ago, healed, no current fractures AAA (abdominal aortic aneurysm) per pt, last evaluated 6 mo ago [facility]? "around 5 cm" -->says was referred to vascular surgery but no appt as of yet Hypertension Surgical History History of abdominal paracentesis S/P excisional debridement LLE History of colonoscopy History of ear surgery as a child History of tonsillectomy History of tooth extraction History of esophagogastroduodenoscopy (EGD) Family History Other No family history of adverse response to anesthesia No significant medical problems Social History Smoking Status: Unknown if ever smoked Tobacco Type: Cigarettes Cigarettes Per Day: 1/2 pack; Second Hand Exposure: No; Do You Dip or Chew Tobacco: No; Hx Alcohol Use: Yes Alcohol type: other Hx Substance Use: Yes Last Used Substance: Unknown Last Used Substance Other:: denies use since 2018 Substance Use Type Other:: last used meth 2018 Preferred Language: Indonesian Communication Ability: Effective Academic Associate Required: No Beliefs That Will Affect Care: None marital status: Single Current Living Situation: Alone Current Living Situation Comment: [facility] apartments-independently How many Children do You have: 0 Feels Safe at Home: Yes Assistive Devices: Bedside Commode, Cane and Walker Review of Systems Review of Systems: Patient is not able to contribute to review of systems due to confusion Physical Exam Physical Exam: The patient is confused and disoriented, normocephalic and atraumatic, lying in bed and in no acute distress. HEENT--PERRL, EOMI, mucous membranes and oropharynx dry. Neck--supple. No JVD. No bruits. Thyroid normal, trachea midline, no adenopathy. Heart--normal S1 and S2. No murmurs, rubs or gallops. Lungs--clear bilaterally, no respiratory distress, no accessory muscle use. Abdomen--normal bowel sounds and soft. Nontender. Nondistended, no hernias or masses, no organomegaly. Extremities--no cyanosis or clubbing. No edema. Dermatologic--normal skin turgor, normal color, no abnormal lymph nodes, no rash. Neurologic--cranial nerves II through XII grossly intact. Rheumatologic--limited exam Psychiatric--confused and disoriented. Results & Data Results & Data Vital Signs (Past 12 Hours) Vital Signs Temp Pulse Resp BP Pulse Ox O2 Del Method 05/30/23 20:00 Room Air 05/30/23 19:31 169/129 H 05/30/23 19:31 74 17 97 05/30/23 19:25 Room Air 05/30/23 19:21 75 21 97 05/30/23 19:20 167/138 H 05/30/23 19:20 75 05/30/23 18:07 36.9 C 74 18 153/86 H 96 Room Air Laboratory Results Laboratory Results WBC 4.72 K/ul (4.8-10.8) L 05/30/23 18:46 RBC 4.05 M/uL (4.70-6.10) L 05/30/23 18:46 Hgb 12.7 g/dl (14.0-18.0) L 05/30/23 18:46 Hct 37.7 % (42.0-52.0) L 05/30/23 18:46 MCV 93.1 fL (80.0-100.0) 05/30/23 18:46 MCH 31.4 pg (25.0-34.0) 05/30/23 18:46 MCHC 33.7 g/dL (32.0-36.0) 05/30/23 18:46 RDW Std Deviation 56.0 fL (36.4-46.3) H 05/30/23 18:46 RDW Coeff of Nabeel 16.1 % (11.5-14.5) H 05/30/23 18:46 Plt Count 51 K/uL (130-400) L 05/30/23 18:46 MPV 12.2 fL (9.4-12.4) 05/30/23 18:46 Immature Gran % (Auto) 0.2 % 05/30/23 18:46 Neut % (Auto) 63.2 % 05/30/23 18:46 Lymph % (Auto) 24.2 % 05/30/23 18:46 [place] % (Auto) 7.4 % 05/30/23 18:46 Eos % (Auto) 4.4 % 05/30/23 18:46 Baso % (Auto) 0.6 % 05/30/23 18:46 Neut # (Auto) 2.98 K/uL (1.40-6.50) 05/30/23 18:46 Lymph # (Auto) 1.14 K/uL (1.20-3.40) L 05/30/23 18:46 [place] # (Auto) 0.35 K/uL (0.11-0.59) 05/30/23 18:46 Eos # (Auto) 0.21 K/uL (0.00-0.50) 05/30/23 18:46 Baso # (Auto) 0.03 K/uL (0.00-0.20) 05/30/23 18:46 Immature Gran # (Auto) 0.01 K/uL (0.01-0.20) 05/30/23 18:46 Sodium 138 mmol/L (136-145) 05/30/23 18:46 Potassium 4.3 mmol/L (3.5-5.1) 05/30/23 18:46 Chloride 107 mmol/L (98-107) 05/30/23 18:46 Carbon Dioxide 25 mmol/L (21-32) 05/30/23 18:46 Anion Gap 6 (3-11) 05/30/23 18:46 BUN 11 mg/dl (6-23) 05/30/23 18:46 Creatinine 0.92 mg/dl (0.6-1.4) 05/30/23 18:46 Est Cr Clr Drug Dosing 117.9 ml/min 05/30/23 18:46 Est GFR ( Amer) 104.4 ml/min 05/30/23 18:46 Est GFR (Non-Af Amer) 90.1 ml/min 05/30/23 18:46 BUN/Creatinine Ratio 12.0 (10-20) 05/30/23 18:46 Glucose 94 mg/dl (70-99(Fasting)) 05/30/23 18:46 Lactate 2.5 mmol/L (0.4-2.0) H* 05/30/23 21:25 Calcium 8.1 mg/dl (8.6-10.3) L 05/30/23 18:46 Magnesium 1.7 mg/dl (1.7-2.4) 05/30/23 18:46 Total Bilirubin 4.5 mg/dl (0.2-1.0) H 05/30/23 18:46 AST 88 U/L (13-39) H 05/30/23 18:46 ALT 23 U/L (7-52) 05/30/23 18:46 Alkaline Phosphatase 85 U/L (34-104) 05/30/23 18:46 Ammonia 102.0 umol/L (18-72) H 05/30/23 18:46 Total Protein 6.9 gm/dl (6.0-8.3) 05/30/23 18:46 Albumin 2.8 gm/dl (3.4-5.0) L 05/30/23 18:46 Globulin 4.1 gm/dl (2.5-4.0) H 05/30/23 18:46 Albumin/Globulin Ratio 0.7 (0.9-2) L 05/30/23 18:46 TSH 2.552 uIu/ml (0.300-4.500) 05/30/23 18:46 Urine Color Dark Yellow 05/30/23 20:46 Urine Appearance Clear (Clear) 05/30/23 20:46 Urine pH 6.0 (4.5-7.5) 05/30/23 20:46 Ur Specific [place] 1.015 (1.000-1.030) 05/30/23 20:46 Urine Protein Trace (Negative) H 05/30/23 20:46 Urine Glucose (UA) Negative (Negative) 05/30/23 20:46 Urine Ketones Negative (Negative) 05/30/23 20:46 Urine Blood 2+ (Negative) H 05/30/23 20:46 Urine Nitrite Negative (Negative) 05/30/23 20:46 Urine Bilirubin 1+ (Negative) H 05/30/23 20:46 Urine Urobilinogen Positive (Negative) H 05/30/23 20:46 Ur Leukocyte Esterase Negative (Negative) 05/30/23 20:46 Urine WBC (Auto) 1-5 /hpf (0-5) 05/30/23 20:46 Urine RBC (Auto) 10-30 /hpf (0-4) H 05/30/23 20:46 U Hyaline Cast (Auto) 1-5 /lpf (0-5) 05/30/23 20:46 U Epithel Cells (Auto) 5-10 /lpf (0-5) H 05/30/23 20:46 Urine Bacteria (Auto) Negative (Negative) 05/30/23 20:46 Urine Crystals Not Reportable 05/30/23 20:46 Calcium Oxalate Crystal Present (None Prsent) A 05/30/23 20:46 Ethyl Alcohol mg/dL < 10.0 mg/dl (<10.0) 05/30/23 19:[address] 05/30/23 18:55 Exam(s): CT HEAD Without Contrast EXAM: CT Head Without Intravenous Contrast CLINICAL HISTORY: Reason for exam: confusion. TECHNIQUE: Axial computed tomography images of the head/brain without intravenous contrast. CTDI is 76.62 mGy and DLP is 1406.31 mGy-cm. Automated exposure control was utilized for the study. A dose lowering technique was utilized adhering to the principles of ALARA. COMPARISON: No relevant prior studies available. FINDINGS: No acute intracranial hemorrhage. No midline shift or mass effect. The territorial kasper-white matter differentiation is maintained throughout. Age-related cerebral volume loss. Periventricular and subcortical white matter hypoattenuation, consistent with chronic microangiopathy. The visualized orbits appear grossly unremarkable. The calvarium is intact. The visualized paranasal sinuses and mastoid air cells are grossly clear. IMPRESSION: No acute intracranial hemorrhage, midline shift, or mass effect. Electronically signed by: Gildardo Peña MD 05/30/23 20:12 PM Code Status & VTE Plan Code Status Patient will be full code until able to have discussion when he is no longer confused VTE Prophylaxis Plan VTE Prophylaxis will be ordered: Yes PG Care Time/CCT Total # of Minutes Spent Total Time Spent with Patient: Total time spent is greater than 50% in coordination of care (as documented) at patient's floor/unit and/or counseling patient: Coding Level of Care Code 95331 INT INP/OBS CARE 3/75MIN Diagnoses Confusion and disorientation R41.0 Hepatic encephalopathy K76.82 Hyperammonemia E72.20 Bipolar disorder F31.9 Chronic hepatitis C with cirrhosis B18.2; K74.60 Opioid use disorder F11.90 Alcoholism F10.20
[2023-05-30] MEDS ORDERED: CARBOHYDRATES FOR HYPOGLYCEMIA PO PRN (23:49)
[2023-05-30] MEDS ORDERED: ALBUT/IPRATROP 3MG/0.5MG NEB 3 ML VIAL INH PRN (23:49)
[2023-05-30] MEDS ORDERED: DEXTROSE 50% 50 ML SYRINGE IV PRN (23:49)
[2023-05-30] MEDS ORDERED: GLUCOSE 40% GEL 15 GM TUBE PO PRN (23:49)
[2023-05-30] MEDS ORDERED: GLUCOSE 10 TAB/TUBE PO PRN (23:49)
[2023-05-30] MEDS ORDERED: GLUCAGON FOR INJ 1 MG VIAL SQ PRN (23:49)
[2023-05-30] MEDS ORDERED: ONDANSETRON INJ 2 MG/ML 2 ML VIAL IV PRN (23:49)
[2023-05-31] MEDS: metroNIDAZOLE 500 MG/100 ML BAG IV SCH ×4 (01:28→23:46)
--- NOTE | 2023-05-31 07:08 | XRay Report ---
XR chest 1V portable CLINICAL HISTORY: weakness COMPARISON STUDY: Chest radiograph April 27, 2023. Chest CT June 02, 2021. FINDINGS: There is no pneumothorax or pleural effusion. Low lung volumes are unchanged. Pulmonary vas cular congestion is present. There may be mild pulmonary edema. There is no consolidation to suggest pneumonia. Cardiomegaly is unchanged. Mediastinal contours are stable. IMPRESSION: Cardiomegaly. Pulmonary vascular congestion with suspected mild pulmonary edema. ACT 112: Negative or not required by law. Electronically signed by: Remi Hernandez M.D. 05/31/2023 7:07 AM
[2023-05-31 07:09] LABS: Basophils # (auto) 0.04 K/uL (0.00-0.20); Basophils % (auto) 0.6 %; Eosinophils # (auto) 0.26 K/uL (0.00-0.50); Eosinophils % (auto) 4.2 %; Hematocrit (blood only) 35.8 % (42.0-52.0); Hemoglobin 11.8 g/dl (14.0-18.0); Immature Granulocytes # (auto) 0.01 K/uL (0.01-0.20); Immature Granulocytes % (auto) 0.2 %; Lymphocytes # (auto) 1.77 K/uL (1.20-3.40); Lymphocytes % (auto) 28.7 %; Mean Corpuscular Hemoglobin 31.1 pg (25.0-34.0); Mean Corpuscular Volume 94.2 fL (80.0-100.0); Mean Platelet Volume 11.7 fL (9.4-12.4); Monocytes # (auto) 0.56 K/uL (0.11-0.59); Monocytes % (auto) 9.1 %; Neutrophils # (auto) 3.52 K/uL (1.40-6.50); Neutrophils % (auto) 57.2 %; Platelet Count 49 K/uL (130-400); RDW Coefficient of Variation 16.1 % (11.5-14.5); RDW Standard Deviation 56.4 fL (36.4-46.3); White Blood Count 6.16 K/ul (4.8-10.8)
[2023-05-31 07:34] LABS: Albumin Globulin Ratio 0.6 (0.9-2); Albumin Level 2.4 gm/dl (3.4-5.0); BUN Creatinine Ratio 15.4 (10-20); Bilirubin,Total 4.6 mg/dl (0.2-1.0); Calcium 8.1 mg/dl (8.6-10.3); Creatinine Clr Calc Pharmacy 119.2 ml/min; Est GFR (African American) 105.8 ml/min; Est GFR (Non-African American) 91.3 ml/min; Magnesium 1.7 mg/dl (1.7-2.4); Potassium 4.3 mmol/L (3.5-5.1); Total Protein 6.4 gm/dl (6.0-8.3)
[2023-05-31 08:06] LABS: Estimated Average Glucose 94 mg/dl; Hemoglobin A1C 4.9 % (4.5-5.6)
[2023-05-31] MEDS: INSULIN ASPART PER UNIT CHARGE SC SCH ×4 (08:27→23:46)
[2023-05-31] MEDS ORDERED: THIAMINE HCL 100 MG in SYRINGE 9 ML IV SCH (09:00)
[2023-05-31] MEDS ORDERED: FOLIC ACID 1 MG in SYRINGE 9.8 ML IV SCH (09:00)
[2023-05-31] MEDS: HEPARIN SOD 5,000 UNIT/0.5 ML VIAL SQ SCH ×2 (09:15→20:23)
[2023-05-31] MEDS: LACTULOSE SYRUP 20 GM/30 ML UDC PO SCH ×3 (09:16→20:23)
--- NOTE | 2023-05-31 11:03 | Hospitalist Progress Note ---
Date of Service May 31, 2023 Assessment & Plan (1) Hepatic encephalopathy: Plan: Improving, but not back to baseline. Ammonia level is down. He has not moved his bowels yet Continue lactulose Supportive care Follow ammonia level in the morning Continue holding gabapentin but okay to restart home Subutex No signs of infection but is on empiric ceftriaxone and Flagyl. Blood cultures- no growth to date (2) Alcoholic cirrhosis of liver: Plan: Was declined to be on liver transplant list as of the end of April due to poor social support and cardiac issues His total bilirubin is up significantly from previous, INR elevated, pancytopenia. He still would like symptomatic care Resume home Lasix 40 mg daily and and spironolactone 50 mg daily-previously he was on 100 mg daily of spironolactone had hyperkalemia Follow CMP, PT/INR, CBC Arrange paracentesis for distended abdomen for therapeutic and diagnostic purposes Continue ceftriaxone in case of SBP Consult GI Sister reports that patient is not interested in hospice and he definitely wants to keep living Resume p.o. Protonix Advance diet (3) Chronic hepatitis C with cirrhosis: Plan: As noted above, unclear if ever treated for hepatitis C (4) Urinary retention: Plan: Straight cathed for 1200 mL of urine on 05/[address] Azar catheter if has ongoing retention Urology consult placed Add on tamsulosin (5) Pancytopenia: Plan: Secondary to cirrhosis, levels are at baseline Follow CBC (6) Bipolar disorder: Plan: Gabapentin on hold due to lethargy Restart tomorrow if mental status is improved (7) Opioid use disorder: Plan: Resume patient's home Subutex (8) Alcoholism: Plan: In remission Continue thiamine and folic acid but convert to p.o. (9) Type 2 diabetes mellitus: Plan: Hemoglobin A1c quite low NovoLog sliding scale He likely does not need insulin at home (10) COPD (chronic obstructive pulmonary disease): Plan: No acute issues Not on maintenance inhalers at home (11) AAA (abdominal aortic aneurysm): Plan: Noted as a diagnosis in the chart but CT abdomen/pelvis from 06/2022 reports atherosclerosis of the aorta without aneurysm Unsure why this diagnosis is in the chart Plan DVT prophylaxis heparin SQ Disposition-continued stay on telemetry. Discussed his care with his Sister Violet on the phone at length. Will place PT/OT consults Admission and Anticipated Discharge Date Admission Date: May 30, 2023 Subjective Patient still lethargic but does wake up and answer questions. He is oriented to person place and year. He denies abdominal pain or distention but his sister on the phone reports that his abdomen is twice the size of what it usually is and he needs a paracentesis. He has not moved his bowels since he has been here. He did require straight cath of 1200 mL of urine His sister tells me over the phone that the patient "is not giving up on life yet." He typically is pretty functional and goes to yazdanism on Sundays. He is noncompliant with his lactulose and diuretics at times due to the inconvenience of having to go to the bathroom if he is out and about. Telemetry with normal sinus rhythm with rates in the 70s Physical Exam Constitutional: WD/WN, vitals as above Neck: trachea midline, no thyromegaly Respiratory: normal respiratory effort, lungs clear to auscultation Cardiovascular: Rate/Rhythm: regular rate and regular rhythm Heart Sounds: no murmur Extremities: + edema (Trace pitting edema legs bilaterally) Chest (Breasts): Chest: normal inspection of chest Gastrointestinal (Abdomen): Inspection/Auscultation: + abdomen distended and normal bowel sounds Percussion/Palpation: abdomen soft; abdomen nontender and no guarding Musculoskeletal: Extremities: extremities normal to inspection; no cyanosis and no clubbing Skin: Chronic venous stasis changes on the legs bilaterally Neurologic: moves all extremities; no focal motor deficits Psychiatric: Alert awake oriented to "hospital", year is 1 and 24, and person. Thinks he came to the hospital because of his enlarged prostate Results & Data Results & Data Vital Signs (Past 12 Hours) Vital Signs Pulse Pulse Resp BP Pulse Ox Pulse Ox O2 Del Method 05/31/23 07:12 75 05/30/23 23:56 68 05/30/23 23:49 66 16 117/69 92 Room Air 05/30/23 23:49 92 05/30/23 23:30 67 16 117/69 92 Room Air 05/30/23 23:19 71 O2 Del Method 05/31/23 07:12 05/30/23 23:56 05/30/23 23:49 05/30/23 23:49 Room Air 05/30/23 23:30 05/30/23 23:19 Laboratory Results CBC, CMP, magnesium, hemoglobin A1c, ammonia level reviewed PG Care Time/CCT Total # of Minutes Spent Total Time Spent with Patient: Total time spent is greater than 50% in coordination of care (as documented) at patient's floor/unit and/or counseling patient: Coding Level of Care Code 42812 SUB INP/OBS CARE 3/50MIN Diagnoses Hepatic encephalopathy K76.82 Alcoholic cirrhosis of liver K70.30 Chronic hepatitis C with cirrhosis B18.2; K74.60 Urinary retention R33.9 Pancytopenia D61.818 Bipolar disorder F31.9 Opioid use disorder F11.90 Alcoholism F10.20 Type 2 diabetes mellitus E11.9 COPD (chronic obstructive pulmonary disease) J44.9 AAA (abdominal aortic aneurysm) I71.4
[2023-05-31] MEDS: FUROSEMIDE 40 MG TAB PO SCH (12:42)
[2023-05-31] MEDS: PANTOprazole 40 MG TAB PO SCH (12:42)
[2023-05-31] MEDS: buprenorphine HCL 8 MG SUBL SL SCH ×2 (12:43→20:23)
--- NOTE | 2023-05-31 12:49 | Electrocardiogram Report ---
Test Reason : Blood Pressure : / mmHG Vent. Rate : 074 BPM Atrial Rate : 074 BPM P-R Int : 178 ms QRS Dur : 090 ms QT Int : 438 ms P-R-T Axes : 037 002 047 degrees QTc Int : 486 ms Normal sinus rhythm Low voltage QRS Poor R wave progression, consider anterior HI vs. lead placement vs. LVH Abnormal ECG When compared with ECG of 27-APR-2023 15:22, No significant change was found Confirmed by Kodi Arango ([id number]) on 05/31/2023 12:48:58 PM Referred By: REFERRED SELF Confirmed By:Kodi Arango
--- NOTE | 2023-05-31 13:53 | Urology Consultation ---
Date of Consultation May 31, 2023 History of Present Illness Attending Physician: Lala Fu MD History of Present Illness 62-year-old male with past medical history including bipolar disorder, recovering alcoholism, chronic hepatitis C with cirrhosis, gastroparesis, GERD, esophageal dysphagia, hepatic encephalopathy, hyperammonemia, opiate use disorder, and hypertension admitted with hepatic encephalopathy. Urology consulted for urinary retention. Per chart review, pt noted to be straight cathed for 925 of urine 05/31. Bladder scanned again for >500ml. Azar catheter placed by nursing staff. Allergies Allergy/AdvReac Type Severity Reaction Status Date / Time No Known Allergies Allergy Verified 04/27/23 20:42 Home Medications Medication Instructions Recorded Confirmed Type insulin glargine 100 unit/mL (3 0 unit subcut UD 08/20/20 05/30/23 History mL) subcutaneous pen (Lantus Solostar U-100 Insulin) insulin lispro 100 unit/mL 0 unit subcut UD 08/20/20 05/30/23 History subcutaneous solution (Humalog U-100 Insulin) ipratropium 0.5 mg-albuterol 3 mg 3 ml inhalation QID PRN Shortness 12/27/21 05/30/23 History (2.5 mg base)/3 mL nebulization Of Breath Or Wheezing soln buprenorphine HCl 8 mg sublingual 8 mg sublingual QAM 03/30/22 05/30/23 History tablet lactulose 20 gram/30 mL oral 20 g (30 mL) PO TID #60 mL 04/21/22 05/30/23 Rx solution gabapentin 800 mg tablet 800 mg PO TID 06/12/22 05/30/23 History diclofenac sodium 1 % topical gel 4 g EXT QID PRN back pain #1 tube 07/18/22 05/30/23 Rx (Voltaren Arthritis Pain) omeprazole 40 mg capsule,delayed 40 mg PO QAM #30 caps 07/18/22 05/30/23 Rx release buprenorphine HCl 8 mg sublingual 16 mg sublingual QPM 04/27/23 05/30/23 History tablet furosemide 40 mg tablet (Lasix) 40 mg PO DAILY #60 tabs 04/29/23 05/30/23 Rx Patient History Medical History (Updated 05/31/23 @ 02:20 by Sammy Shannon MD) Hepatic encephalopathy Acute hyperkalemia Thrombocytopenia Chronic hepatitis C with cirrhosis Lumbar vertebral fracture 06/2022, fall at home, hospitalzied at [facility] for 2 weeks; no sx. History of recent hospitalization d/c from [place] 12/11/22 psychiatric reasons. Anxiety/depression. Controlled at current. Lyme borreliosis Elevated bilirubin Compression fracture of L4 vertebra Vitamin D deficiency Closed compression fracture of L1 vertebra Alcohol abuse, in remission Venous stasis dermatitis Cirrhosis Abdominal ascites Pancytopenia Type 2 diabetes mellitus History of heroin abuse quit 2017 Gastroparesis Nocturnal hypoxia per pt, prescribed home O2 @ 2 LPM qHS and PRN daily in past but unable to obtain as of late r/t financial struggles. admits to using sister's oxygen at night when able. current: 2.5 L oxygen HS. Dysphagia on occasion Hepatitis C no treatment as of yet Fibromyalgia Recovering alcoholic quit November 2019 > brief relapse Mar 2022, was hospitalized [facility], high ammonia levels, once DC'ed from hospital, no more alcohol History of kidney stones GERD (gastroesophageal reflux disease) DM type 2 (diabetes mellitus, type 2) IDDM/no inuslin use over past 2 weeks/blood sugars have been running around 100 - pt monitors. Pharmacist'S Aide is aware and has nova with pcp on December 14 2022. Bipolar disorder PTSD (post-traumatic stress disorder) Anxiety History of migraine History of DVT (deep vein thrombosis) "few years ago" LLE -- unk etiology -- per pt, no treatment at time of dx Hyperlipidemia Sleep apnea non compliant with CPAP COPD (chronic obstructive pulmonary disease) rare res inh use Alcoholic cirrhosis of liver Rib fracture years ago, healed, no current fractures AAA (abdominal aortic aneurysm) per pt, last evaluated 6 mo [place] [facility]? "around 5 cm" -->says was referred to vascular surgery but no appt as of yet Hypertension Surgical History History of abdominal paracentesis S/P excisional debridement LLE History of colonoscopy History of ear surgery as a child History of tonsillectomy History of tooth extraction History of esophagogastroduodenoscopy (EGD) Family History Other No family history of adverse response to anesthesia No significant medical problems Social History Smoking Status: Unknown if ever smoked Tobacco Type: Cigarettes Cigarettes Per Day: 1/2 pack; Second Hand Exposure: No; Do You Dip or Chew Tobacco: No; Hx Alcohol Use: Yes Alcohol type: other Hx Substance Use: Yes Last Used Substance: Unknown Last Used Substance Other:: denies use since 2017 Substance Use Type Other:: last used meth 2017 Preferred Language: Khmer Communication Ability: Effective Practical Ministries Professor Required: No Beliefs That Will Affect Care: None marital status: Single Current Living Situation: Alone Current Living Situation Comment: senior care apartments-independently How many Children do You have: 0 Feels Safe at Home: Yes Assistive Devices: Bedside Commode, Cane and Walker Results & Data Vital Signs (Past 12 Hours) Vital Signs Pulse 05/31/23 07:12 75 PG Care Time/CCT Total # of Minutes Spent Total Time Spent with Patient: Total time spent is greater than 50% in coordination of care (as documented) at patient's floor/unit and/or counseling patient: Coding
--- NOTE | 2023-05-31 15:29 | Ultrasound Report ---
Ultrasound-guided paracentesis INDICATION: Ascites PROCEDURE: Procedure and risks were explained. Informed consent was obtained over the phone. A final time out was completed. The abdomen was prepped and draped in sterile fashion. 1% buffered lidocaine was utilized for skin anesthesia. Utilizing ultrasound guidance, a 5 English safety centesis catheter was advanced into the left lower q uadrant pocket of ascites. Ultrasound images were obtained. 3700 mL of ascites fluid was removed with 1 L sent to lab for analysis. The catheter was removed and Band-Aid applied. The patient tolerated t he procedure well. Vital signs will be monitored postprocedure. IMPRESSION: Paracentesis as above. Performed, dictated, and signed by Dimas Stanley PA-C; to be co-signed by Dr. Remi Hernandez. Electronically signed by: Remi Hernandez M.D. 05/31/2023 5:05 PM
[2023-05-31 16:03] LABS: Albumin Peritoneal Fluid < 1.5 gm/dl
[2023-05-31 16:09] LABS: Total Protein Peritoneal Fluid < 3.0 gm/dl
[2023-05-31 17:33] LABS: Appearance Peritoneal Fluid Clear; Color Peritoneal Fluid Pale Yellow; Lymphocytes, Fluid 9 %; Mono,Macrophage,Mesothelial 81 %; Neutrophils, Fluid 10 %; RBC Peritoneal Fluid Auto < 2000 /uL; WBC Peritoneal Fluid Auto 193 /ul (0-300)
[2023-05-31] MEDS: SPIRONOLACTONE 25 MG TAB PO SCH (17:39)
--- NOTE | 2023-05-31 19:44 | Urology Consultation ---
<Statement entered by Rocky Navarro MD - 06/01/23 10:02> I have discussed Mr. Gonzalez's case with Trung Lowry PA-C and agree with the above documentation. Urinary retention currently managed with Azar catheter. Would recommend bowel regimen, consideration of tamsulosin and finasteride. Catheter should stay in for approximately 1 week for bladder rest. Urology can coordinate a voiding trial as an outpatient and further evaluation if needed. -Rocky Navarro MD. Date of Consultation May 31, 2023 Assessment & Plan (1) Urinary retention: Patient has been admitted on the hospitalist service. Will defer management of his underlying confusion/hepatic encephalopathy to their discretion. Concerning patient's urinary retention we recommend the following: Urinalysis has been sent and does not appear the patient has an underlying urinary tract infection The cause of patient's urinary retention is unclear at this time. It is unclear how long the patient has been retaining urine as he cannot provide any meaningful history as noted previously this document Would recommend maintaining Azar catheter to gravity drainage to allow adequate bladder decompression. Once the patient is more alert and oriented consideration be given to attempting a voiding trial. If voiding trial is attempted and patient fails this, Azar catheter can be replaced and further evaluation can be undertaken. Of note, patient's records were reviewed and I not see any results of a PSA so consideration to ordering 1 of these can be considered in the future. If the patient's Azar catheter does become clogged manual irrigation and flushing attempts can be employed History of Present Illness Reason for Consultation: Urinary retention Attending Physician: Lala Fu MD History of Present Illness This is a 62-year-old male who was admitted to the hospital on 05/30/2023 secondary to altered mental status/confusion. I visited with the patient at the bedside and he was alert only to person. He was unable to provide any meaningful information in order to contribute to the HPI portion of this consult. Information was obtained with discussion with the staff attending to the patient as well as review of the chart. Patient does have a history of alcoholism and chronic hepatitis C with cirrhosis. According to notes from the hospitalist the patient was evaluated for liver transplant with was deemed not a transplant candidate secondary to poor functional status and advanced cardiac disease. Since admission to the hospital the patient has been placed on ceftriaxone to cover possible spontaneous bacterial peritonitis. He is also undergone a paracentesis as noted below. Urology was asked to see the patient secondary to urinary retention. The patient required straight catheterization earlier today for 1200 cc of urine and a Azar catheter was ultimately placed. I attempted to discuss with the patient his urinary habits but he was unable to contribute to this part of the historical data due to his underlying confusion. I did discuss with the nurse attending the patient and she notes that his Azar catheter has been patent. Since arrival to the hospital the patient has had labs and imaging which independent reviewed. A chest x-ray showed pulmonary vascular congestion with mild pulmonary edema. A CT scan of the head showed the patient had no intracranial hemorrhage, mass effect, or midline shift. Patient also had an abdominal ultrasound today at which time he underwent a paracentesis for 3700 cc of ascitic fluid. Most recent labs were from today which include a white blood cell count which was normal. His platelet count is 49,000. Hemoglobin and hematocrit are 11.8 and 35.8. Chemistry profile showed sodium and potassium along with BUN and creatinine were within normal range. Lactic acid was elevated 2.5. Urinalysis was negative for leukocyte Estrace and pyuria. There is no bacteria on this study. This specimen was also negative for nitrites. At the time of my interview patient was lying in bed alert only to person. He did not appear to be in any distress. Allergies Allergy/AdvReac Type Severity Reaction Status Date / Time No Known Allergies Allergy Verified 04/27/23 20:42 Home Medications Medication Instructions Recorded Confirmed Type insulin glargine 100 unit/mL (3 0 unit subcut UD 08/20/20 05/30/23 History mL) subcutaneous pen (Lantus Solostar U-100 Insulin) insulin lispro 100 unit/mL 0 unit subcut UD 08/20/20 05/30/23 History subcutaneous solution (Humalog U-100 Insulin) ipratropium 0.5 mg-albuterol 3 mg 3 ml inhalation QID PRN Shortness 12/27/21 05/30/23 History (2.5 mg base)/3 mL nebulization Of Breath Or Wheezing soln buprenorphine HCl 8 mg sublingual 8 mg sublingual QAM 03/30/22 05/30/23 History tablet lactulose 20 gram/30 mL oral 20 g (30 mL) PO TID #60 mL 12/02/22 01/10/24 Rx solution gabapentin 800 mg tablet 800 mg PO TID 06/12/22 05/30/23 History diclofenac sodium 1 % topical gel 4 g EXT QID PRN back pain #1 tube 07/18/22 05/30/23 Rx (Voltaren Arthritis Pain) omeprazole 40 mg capsule,delayed 40 mg PO QAM #30 caps 07/18/22 05/30/23 Rx release buprenorphine HCl 8 mg sublingual 16 mg sublingual QPM 04/27/23 05/30/23 History tablet furosemide 40 mg tablet (Lasix) 40 mg PO DAILY #60 tabs 04/29/23 05/30/23 Rx Patient History Medical History (Updated 05/31/23 @ 19:42 by Trung Lowry PA-C) Urinary retention Hepatic encephalopathy Acute hyperkalemia Thrombocytopenia Chronic hepatitis C with cirrhosis Lumbar vertebral fracture 06/2022, fall at home, hospitalzied at [facility] for 2 weeks; no sx. History of recent hospitalization d/c from [place] 12/11/22 psychiatric reasons. Anxiety/depression. Controlled at current. Lyme borreliosis Elevated bilirubin Compression fracture of L4 vertebra Vitamin D deficiency Closed compression fracture of L1 vertebra Alcohol abuse, in remission Venous stasis dermatitis Cirrhosis Abdominal ascites Pancytopenia Type 2 diabetes mellitus History of heroin abuse quit 2017 Gastroparesis Nocturnal hypoxia per pt, prescribed home O2 @ 2 LPM qHS and PRN daily in past but unable to obtain as of late r/t financial struggles. admits to using sister's oxygen at night when able. current: 2.5 L oxygen HS. Dysphagia on occasion Hepatitis C no treatment as of yet Fibromyalgia Recovering alcoholic quit November 2019 > brief relapse Mar 2022, was hospitalized [facility], high ammonia levels, once DC'ed from hospital, no more alcohol History of kidney stones GERD (gastroesophageal reflux disease) DM type 2 (diabetes mellitus, type 2) IDDM/no inuslin use over past 2 weeks/blood sugars have been running around 100 - pt monitors. 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 Bipolar disorder PTSD (post-traumatic stress disorder) Anxiety History of migraine History of DVT (deep vein thrombosis) "few years ago" LLE -- unk etiology -- per pt, no treatment at time of dx Hyperlipidemia Sleep apnea non compliant with CPAP COPD (chronic obstructive pulmonary disease) rare res inh use Alcoholic cirrhosis of liver Rib fracture years ago, healed, no current fractures AAA (abdominal aortic aneurysm) per pt, last evaluated 6 mo [place] [facility]? "around 5 cm" -->says was referred to vascular surgery but no appt as of yet Hypertension Surgical History History of abdominal paracentesis S/P excisional debridement LLE History of colonoscopy History of ear surgery as a child History of tonsillectomy History of tooth extraction History of esophagogastroduodenoscopy (EGD) Family History Other No family history of adverse response to anesthesia No significant medical problems Social History Smoking Status: Former smoker Tobacco Type: Cigarettes Cigarettes Per Day: 1/2 pack; Second Hand Exposure: No; Do You Dip or Chew Tobacco: No; Hx Alcohol Use: Yes Alcohol type: other Hx Substance Use: Yes Last Used Substance: Unknown Last Used Substance Other:: denies use since 2017 Substance Use Type Other:: last used meth 2017 Preferred Language: Divehi Communication Ability: Impaired Color Maker Required: No Beliefs That Will Affect Care: None marital status: Single Current Living Situation: Alone Current Living Situation Comment: [facility] apartments-independently How many Children do You have: 0 Feels Safe at Home: Yes Assistive Devices: Bedside Commode, Cane and Walker Review of Systems Review of Systems: Unobtainable due to cognitive status Physical Exam Constitutional: no acute distress ENMT: Ears: no hearing impairment and no external ear abnormality Neck: trachea midline Respiratory: normal respiratory effort; no respiratory distress and no labored breathing Cardiovascular: Rate/Rhythm: regular rate and regular rhythm Gastrointestinal (Abdomen): Abdomen is rotund but soft and nonrigid. Palpation of the patient's abdomen did not appear to elicit a painful response Musculoskeletal: Did not appear to be any calf tenderness Skin: no rashes Neurologic: moves all extremities Patient is able to move all 4 extremities but does not completely follow commands appropriately. He is alert only to person. Genitourinary: Percussion of patient's back did not reveal any CVA tenderness bilaterally Results & Data Vital Signs (Past 12 Hours) Vital Signs Temp Pulse Resp BP BP Pulse Ox O2 Del Method 05/31/23 19:19 36.3 C L 84 22 153/69 H 96 Room Air 05/31/23 15:59 36.6 C 86 19 145/68 H 94 Room Air 05/31/23 15:32 83 93 Room Air 05/31/23 14:23 96 Room Air 05/31/23 14:23 Room Air 05/31/23 13:53 36.9 C 86 20 142/86 H 96 Room Air 05/31/23 07:45 Room Air 05/31/23 07:45 36.9 C 88 20 117/89 98 Room Air PG Care Time/CCT Total # of Minutes Spent Total Time Spent with Patient: Total time spent is greater than 50% in coordination of care (as documented) at patient's floor/unit and/or counseling patient: Coding Level of Care Code 55428 OFFICE CONSULT LVL Diagnoses Urinary retention R33.9
[2023-05-31] MEDS: cefTRIAXone SODIUM 2,000 MG in DEXTROSE 5 % MINI-B 50 ML IV SCH (19:54)
[2023-05-31] MEDS: TAMSULOSIN HCL 0.4 MG CAP PO SCH (20:27)
[2023-06-01] MEDS: INSULIN ASPART PER UNIT CHARGE SC SCH ×4 (05:59→20:44)
[2023-06-01 07:52] LABS: INR 1.9 (0.9-1.1); Prothrombin Time 19.8 Seconds (9.0-12.0)
[2023-06-01 08:12] LABS: Magnesium 1.7 mg/dl (1.7-2.4)
[2023-06-01 08:23] LABS: Bilirubin,Total 2.8 mg/dl (0.2-1.0); Calcium 7.6 mg/dl (8.6-10.3); Potassium 3.5 mmol/L (3.5-5.1)
[2023-06-01 08:29] LABS: Albumin Globulin Ratio 0.6 (0.9-2); BUN Creatinine Ratio 21.8 (10-20); Creatinine Clr Calc Pharmacy 115.2 ml/min; Est GFR (African American) 108.7 ml/min; Est GFR (Non-African American) 93.8 ml/min; Globulin 3.3 gm/dl (2.5-4.0); Total Protein 5.3 gm/dl (6.0-8.3)
[2023-06-01] MEDS: FOLIC ACID 1 MG TAB PO SCH (09:18)
[2023-06-01] MEDS: LACTULOSE SYRUP 20 GM/30 ML UDC PO SCH ×3 (09:18→20:44)
[2023-06-01] MEDS: HEPARIN SOD 5,000 UNIT/0.5 ML VIAL SQ SCH ×2 (09:18→20:45)
[2023-06-01] MEDS: THIAMINE HCL 100 MG TAB PO SCH (09:18)
[2023-06-01] MEDS: SPIRONOLACTONE 25 MG TAB PO SCH (09:18)
--- NOTE | 2023-06-01 09:18 | Hospitalist Progress Note ---
Date of Service June 01, 2023 Assessment & Plan (1) Hepatic encephalopathy: Plan: Was improving, seems to have slightly worsened this morning and ammonia level up trended. Would follow clinical progression rather than pneumonia trend moving forward. 1 bowel movement documented, patient notes he has had a bowel movement but is not sure how many or how often Lactulose uptitrated, goal at least 3 bowel movements per day. If he achieves this and continues to be encephalopathic add adjunct rifaximin Home Subutex continued, gabapentin held Patient was continued on empiric ceftriaxone/Flagyl for SBP prophylaxis. No signs of infection on reassessment (2) Alcoholic cirrhosis of liver: Plan: Was declined to be on liver transplant list as of the end of April due to poor social support and cardiac issues. . Should still follow-up with outpatient sales and in home delivery specialist on discharge. Remains encephalopathic above baseline requiring ongoing care - His total bilirubin is up significantly from previous, INR elevated, pancytopenia. - He still would like symptomatic care Child Dick class C, meldNA 18 - Continue lasix 40 mg daily and and spironolactone 50 mg daily-previously he was on 100 mg daily of spironolactone had hyperkalemia - Follow CMP, PT/INR, CBC - Peritoneal serum albumin <1.4. Pale yellow. WBC 193. Cx pending, low suspicion for SBP - GI consult pending - Sister reports that patient is not interested in hospice and he definitely wants to keep living - Continue ppi (3) Chronic hepatitis C with cirrhosis: Plan: As noted above, unclear if ever treated for hepatitis C (4) Pancytopenia: Plan: Secondary to cirrhosis, levels are at baseline Follow CBC (5) Bipolar disorder: Plan: Gabapentin on hold due to lethargy Restart tomorrow if mental status is improved (6) Opioid use disorder: Plan: continue Subutex (7) Alcoholism: Plan: In remission Continue thiamine and folic acid (8) Type 2 diabetes mellitus: Plan: Hemoglobin A1c quite low NovoLog sliding scale He likely does not need insulin at home (9) COPD (chronic obstructive pulmonary disease): Plan: No acute issues Not on maintenance inhalers at home (10) AAA (abdominal aortic aneurysm): Plan: Noted as a diagnosis in the chart but CT abdomen/pelvis from 06/2022 reports atherosclerosis of the aorta without aneurysm Unsure why this diagnosis is in the chart Plan DVT prophylaxis heparin SQ Disposition-continued stay on telemetry. Lactulose uptitrated. Will place PT/OT consults Admission and Anticipated Discharge Date Admission Date: May 30, 2023 Subjective Previously appeared to be improved, currently encephalopathic not yet back to baseline. Patient is seen at the bedside, answers some questions appropriately and follows one-step commands but is easily distracted and is not oriented to city or year. Voices with notable tremor and continues to have asterixis on exam . Denies fever, chills, sweats. Denies pain, and specifically no abdominal pain or tenderness. Denies chest pain, chest pressure, shortness of breath. Has had bowel movements but does not know how many. No specific concerns from nursing at bedside, patient's ammonia has up trended from 79-85 would follow clinical progression rather than specific level in the future does appear to be worsening and will have lactulose uptitrated Physical Exam Physical Exam: General: Oriented to name only. Follows some one-step commands, intermittently confused and appears encephalopathic at time of assessment HEENT: Atraumatic, normocephalic. Pupils equal and reactive to light Pulm: Diminished, -wheezes, -rales, -rhonchi. Symmetrical chest rise. No increased work of breathing. No respiratory distress. Cardiac: RRR, -mrg. Radial pulses intact and symmetrical. Abdominal: Softly distended without pain. Trace fluid wave. No rebound/guarding. Ext: warm, dry. +asterisks with wrist extension. Results & Data Results & Data Vital Signs (Past 12 Hours) Vital Signs Temp Pulse Pulse Resp BP BP Pulse Ox 06/01/23 08:04 36.5 C 79 22 116/65 92 06/01/23 03:51 37.2 C 72 20 128/80 94 06/01/23 01:00 75 05/31/23 23:49 05/31/23 23:32 36.6 C 81 22 128/67 93 05/31/23 21:30 Pulse Ox O2 Del Method O2 Del Method 06/01/23 08:04 Room Air 06/01/23 03:51 Room Air 06/01/23 01:00 05/31/23 23:49 93 Room Air 05/31/23 23:32 Room Air 05/31/23 21:30 Room Air PG Care Time/CCT Total # of Minutes Spent Total Time Spent with Patient: Total time spent is greater than 50% in coordination of care (as documented) at patient's floor/unit and/or counseling patient: Coding Level of Care Code 27079 SUB INP/OBS CARE 3/50MIN Diagnoses Hepatic encephalopathy K76.82 Alcoholic cirrhosis of liver K70.30 Chronic hepatitis C with cirrhosis B18.2; K74.60 Pancytopenia D61.818 Bipolar disorder F31.9 Opioid use disorder F11.90 Alcoholism F10.20 Type 2 diabetes mellitus E11.9 COPD (chronic obstructive pulmonary disease) J44.9 AAA (abdominal aortic aneurysm) I71.4
[2023-06-01] MEDS: FUROSEMIDE 40 MG TAB PO SCH (09:19)
[2023-06-01] MEDS: PANTOprazole 40 MG TAB PO SCH (09:19)
[2023-06-01] MEDS: buprenorphine HCL 8 MG SUBL SL SCH ×2 (09:26→21:14)
--- NOTE | 2023-06-01 09:37 | Gastrointestinal Consultation ---
Date of Consultation June 01, 2023 Assessment & Plan (1) Hepatic encephalopathy: (2) Chronic hepatitis C with cirrhosis: Plan Patient with history of hep c, cirrhosis, and hepatic encephalopathy, admitted with confusion and ascites. he is s/p paracentesis. Per chart, he has been noncompliant with lactulose and diuretics. Discussed case with Dr. Gomez. We suspect that the patients noncompliance is the contributing factor to hyperammonemia and confusion as well as ascites. - agree with restart of his diuretics at home dosages. - continue with lactulose 20gm PO TID. - can assess how he does with restarting his medications. If noncompliant as outpatient, likely this will lead to repeated issues with confusion and ascites. - he should follow up with hepatology as an outpatient. Supervising Physician Co-Signing Physician Notes I saw the patient and agree with the findings as documented by PAMELA Foreman History of Present Illness Reason for Consultation: hepatic encephalopathy / ascites Requesting Physician: Lala Fu MD Attending Physician: Jameel Mcgee MD History of Present Illness Patient is a 62 year old male with past medical history including bipolar disorder, recovering alcoholic, chronic hepatitis C with cirrhosis, gastroparesis, GERD, esophageal dysphagia, hepatic encephalopathy, hyperammonemia, opiate use disorder, hypertension, and determined to not be a transplant candidate as per letter on 05/16/2023 due to poor functional status and advanced cardiac disease from [facility]. Patient came to hospital for issues with confusion and ascites. Per chart, he is noncompliant with his diuretics and lactulose. since admission he has had paracentesis. I went to see the patient this morning and he is alert but he does not answer questions appropriately and still seems quite confused. He was asking for his cup despite he was holding this and drinking from it while I spoke with him. He denies any nausea, vomiting, heartburn, dysphagia, abdominal pain, change in bowels, brbpr, or melena. discussed with nursing, no other GI concerns at this time. ammonia at time of admission 05/30/23 was 102. 05/31/23 ammonia 79. 06/01/23 ammonia 85. Allergies Allergy/AdvReac Type Severity Reaction Status Date / Time No Known Allergies Allergy Verified 04/27/23 20:42 Home Medications Medication Instructions Recorded Confirmed Type insulin glargine 100 unit/mL (3 0 unit subcut UD 08/20/20 05/30/23 History mL) subcutaneous pen (Lantus Solostar U-100 Insulin) insulin lispro 100 unit/mL 0 unit subcut UD 08/20/20 05/30/23 History subcutaneous solution (Humalog U-100 Insulin) ipratropium 0.5 mg-albuterol 3 mg 3 ml inhalation QID PRN Shortness 12/27/21 05/30/23 History (2.5 mg base)/3 mL nebulization Of Breath Or Wheezing soln buprenorphine HCl 8 mg sublingual 8 mg sublingual QAM 03/30/22 05/30/23 History tablet lactulose 20 gram/30 mL oral 20 g (30 mL) PO TID #60 mL 04/21/22 05/30/23 Rx solution gabapentin 800 mg tablet 800 mg PO TID 06/12/22 05/30/23 History diclofenac sodium 1 % topical gel 4 g EXT QID PRN back pain #1 tube 07/18/22 05/30/23 Rx (Voltaren Arthritis Pain) omeprazole 40 mg capsule,delayed 40 mg PO QAM #30 caps 07/18/22 05/30/23 Rx release buprenorphine HCl 8 mg sublingual 16 mg sublingual QPM 04/27/23 05/30/23 History tablet furosemide 40 mg tablet (Lasix) 40 mg PO DAILY #60 tabs 04/29/23 05/30/23 Rx Patient History Medical History (Updated 05/31/23 @ 19:42 by Trugn Lowry, LORNAC) Urinary retention Hepatic encephalopathy Acute hyperkalemia Thrombocytopenia Chronic hepatitis C with cirrhosis Lumbar vertebral fracture 06/2022, fall at home, hospitalzied at [facility] for 2 weeks; no sx. History of recent hospitalization d/c from [place] 12/11/22 psychiatric reasons. Anxiety/depression. Controlled at current. Lyme borreliosis Elevated bilirubin Compression fracture of L4 vertebra Vitamin D deficiency Closed compression fracture of L1 vertebra Alcohol abuse, in remission Venous stasis dermatitis Cirrhosis Abdominal ascites Pancytopenia Type 2 diabetes mellitus History of heroin abuse quit 2017 Gastroparesis Nocturnal hypoxia per pt, prescribed home O2 @ 2 LPM qHS and PRN daily in past but unable to obtain as of late r/t financial struggles. admits to using sister's oxygen at night when able. current: 2.5 L oxygen HS. Dysphagia on occasion Hepatitis C no treatment as of yet Fibromyalgia Recovering alcoholic quit November 2019 > brief relapse Mar 2022, was hospitalized [facility], high ammonia levels, once DC'ed from hospital, no more alcohol History of kidney stones GERD (gastroesophageal reflux disease) DM type 2 (diabetes mellitus, type 2) IDDM/no inuslin use over past 2 weeks/blood sugars have been running around 100 - pt monitors. 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 Bipolar disorder PTSD (post-traumatic stress disorder) Anxiety History of migraine History of DVT (deep vein thrombosis) "few years ago" LLE -- unk etiology -- per pt, no treatment at time of dx Hyperlipidemia Sleep apnea non compliant with CPAP COPD (chronic obstructive pulmonary disease) rare res inh use Alcoholic cirrhosis of liver Rib fracture years ago, healed, no current fractures AAA (abdominal aortic aneurysm) per pt, last evaluated 6 mo [place] [facility]? "around 5 cm" -->says was referred to vascular surgery but no appt as of yet Hypertension Surgical History History of abdominal paracentesis S/P excisional debridement LLE History of colonoscopy History of ear surgery as a child History of tonsillectomy History of tooth extraction History of esophagogastroduodenoscopy (EGD) Family History Other No family history of adverse response to anesthesia No significant medical problems Social History Smoking Status: Former smoker Tobacco Type: Cigarettes Cigarettes Per Day: 1/2 pack; Second Hand Exposure: No; Do You Dip or Chew Tobacco: No; Hx Alcohol Use: Yes Alcohol type: other Hx Substance Use: Yes Last Used Substance: Unknown Last Used Substance Other:: denies use since 2018 Substance Use Type Other:: last used meth 2018 Preferred Language: Bulgarian Communication Ability: Impaired 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 Cardiovascular: RRR, no murmur. Gastrointestinal (Abdomen): normal bowel sounds, abdomen soft, nontender to palpation. Psychiatric: Orientation: alert patient is not oriented. He can tell me he is in the hospital, but answers little else appropriately. Results & Data Vital Signs (Past 12 Hours) Vital Signs Temp Pulse Pulse Resp BP BP Pulse Ox 06/01/23 08:04 97.7 F 79 22 116/65 92 06/01/23 03:51 99.0 F 72 20 128/80 94 06/01/23 01:00 75 05/31/23 23:49 05/31/23 23:32 97.9 F 81 22 128/67 93 Pulse Ox O2 Del Method O2 Del Method 06/01/23 08:04 Room Air 06/01/23 03:51 Room Air 06/01/23 01:00 05/31/23 23:49 93 Room Air 05/31/23 23:32 Room Air Coding Level of Care Code 23244 IN/OBS CONSULT LVL 2,35M Diagnoses Hepatic encephalopathy K76.82 Chronic hepatitis C with cirrhosis B18.2; K74.60 Time Spent (min) 35
[2023-06-01] MEDS ORDERED: Nursing to Pharmacy Communication SCH (09:45)
[2023-06-01 09:47] LABS: Basophils # (auto) 0.02 K/uL (0.00-0.20); Basophils % (auto) 0.5 %; Eosinophils # (auto) 0.14 K/uL (0.00-0.50); Eosinophils % (auto) 3.5 %; Hematocrit (blood only) 32.1 % (42.0-52.0); Hemoglobin 10.8 g/dl (14.0-18.0); Immature Granulocytes # (auto) 0.01 K/uL (0.01-0.20); Immature Granulocytes % (auto) 0.3 %; Lymphocytes # (auto) 1.27 K/uL (1.20-3.40); Lymphocytes % (auto) 32.1 %; Mean Corpuscular Hemoglobin 31.7 pg (25.0-34.0); Mean Corpuscular Hgb Conc 33.6 g/dL (32.0-36.0); Mean Corpuscular Volume 94.1 fL (80.0-100.0); Mean Platelet Volume 10.6 fL (9.4-12.4); Monocytes # (auto) 0.33 K/uL (0.11-0.59); Monocytes % (auto) 8.3 %; Neutrophils # (auto) 2.19 K/uL (1.40-6.50); Neutrophils % (auto) 55.3 %; Platelet Count 31 K/uL (130-400); RDW Coefficient of Variation 16.1 % (11.5-14.5); RDW Standard Deviation 55.6 fL (36.4-46.3); Red Blood Count 3.41 M/uL (4.70-6.10); White Blood Count 3.96 K/ul (4.8-10.8)
[2023-06-01] MEDS: metroNIDAZOLE 500 MG/100 ML BAG IV SCH ×2 (11:04→18:09)
[2023-06-01] MEDS: rifAXIMin 550 MG TABLET PO SCH ×2 (11:27→20:45)
[2023-06-01] MEDS: cefTRIAXone SODIUM 2,000 MG in DEXTROSE 5 % MINI-B 50 ML IV SCH (19:57)
[2023-06-01] MEDS: TAMSULOSIN HCL 0.4 MG CAP PO SCH (21:14)
[2023-06-02] MEDS: metroNIDAZOLE 500 MG/100 ML BAG IV SCH (00:02)
[2023-06-02 05:35] LABS: Basophils # (auto) 0.03 K/uL (0.00-0.20); Basophils % (auto) 0.7 %; Eosinophils # (auto) 0.16 K/uL (0.00-0.50); Eosinophils % (auto) 3.6 %; Hematocrit (blood only) 31.1 % (42.0-52.0); Hemoglobin 10.3 g/dl (14.0-18.0); Immature Granulocytes # (auto) 0.01 K/uL (0.01-0.20); Immature Granulocytes % (auto) 0.2 %; Lymphocytes # (auto) 1.31 K/uL (1.20-3.40); Lymphocytes % (auto) 29.2 %; Mean Corpuscular Hemoglobin 31.4 pg (25.0-34.0); Mean Corpuscular Hgb Conc 33.1 g/dL (32.0-36.0); Mean Corpuscular Volume 94.8 fL (80.0-100.0); Mean Platelet Volume 11.6 fL (9.4-12.4); Monocytes # (auto) 0.33 K/uL (0.11-0.59); Monocytes % (auto) 7.3 %; Neutrophils # (auto) 2.65 K/uL (1.40-6.50); Platelet Count 35 K/uL (130-400); RDW Coefficient of Variation 15.5 % (11.5-14.5); Red Blood Count 3.28 M/uL (4.70-6.10); White Blood Count 4.49 K/ul (4.8-10.8)
[2023-06-02 06:01] LABS: Albumin Globulin Ratio 0.6 (0.9-2); Albumin Level 2.1 gm/dl (3.4-5.0); BUN Creatinine Ratio 23.8 (10-20); Bilirubin,Total 2.2 mg/dl (0.2-1.0); Calcium 7.2 mg/dl (8.6-10.3); Creatinine Clr Calc Pharmacy 121.3 ml/min; Est GFR (African American) 110.3 ml/min; Est GFR (Non-African American) 95.2 ml/min; Globulin 3.5 gm/dl (2.5-4.0); Magnesium 1.6 mg/dl (1.7-2.4); Potassium 3.2 mmol/L (3.5-5.1); Total Protein 5.6 gm/dl (6.0-8.3)
[2023-06-02 06:07] LABS: Prothrombin Time 20.5 Seconds (9.0-12.0)
[2023-06-02] MEDS: INSULIN ASPART PER UNIT CHARGE SC SCH ×4 (08:00→20:54)
[2023-06-02] MEDS: HEPARIN SOD 5,000 UNIT/0.5 ML VIAL SQ SCH ×2 (08:37→20:54)
[2023-06-02] MEDS: LACTULOSE SYRUP 20 GM/30 ML UDC PO SCH ×3 (08:37→20:53)
[2023-06-02] MEDS: rifAXIMin 550 MG TABLET PO SCH ×2 (08:37→20:55)
[2023-06-02] MEDS: PANTOprazole 40 MG TAB PO SCH (08:37)
[2023-06-02] MEDS: SPIRONOLACTONE 25 MG TAB PO SCH (08:37)
[2023-06-02] MEDS: THIAMINE HCL 100 MG TAB PO SCH (08:38)
[2023-06-02] MEDS: FUROSEMIDE 40 MG TAB PO SCH (08:38)
[2023-06-02] MEDS: FOLIC ACID 1 MG TAB PO SCH (08:38)
[2023-06-02] MEDS: buprenorphine HCL 8 MG SUBL SL SCH ×2 (08:40→20:54)
[2023-06-02] MEDS ORDERED: diazePAM 2 MG TABLET PO ONE (12:59)
--- NOTE | 2023-06-02 14:58 | Hospitalist Progress Note ---
Date of Service June 02, 2023 Assessment & Plan (1) Hepatic encephalopathy: Plan: Seems to have improved Continue lactulose and rifaximin Goal 3-5 bowel movements per day Was improving, seems to have slightly worsened this morning and ammonia level up trended. Would follow clinical progression rather than pneumonia trend moving forward. 1 bowel movement documented, patient notes he has had a bowel movement but is not sure how many or how often Lactulose uptitrated, goal at least 3 bowel movements per day. If he achieves this and continues to be encephalopathic add adjunct rifaximin Home Subutex continued, gabapentin held Patient was continued on empiric ceftriaxone/Flagyl for SBP prophylaxis. No signs of infection on reassessment. I will let it today. (2) Alcoholic cirrhosis of liver: Plan: Was declined to be on liver transplant list as of the end of April due to poor social support and cardiac issues. . Should still follow-up with outpatient manager entry on discharge. Remains encephalopathic above baseline requiring ongoing care - His total bilirubin is up significantly from previous, INR elevated, pancytopenia. - He still would like symptomatic care Child Dick class C, meldNA 18 - Continue lasix 40 mg daily and and spironolactone 50 mg daily-previously he was on 100 mg daily of spironolactone had hyperkalemia - Peritoneal serum albumin <1.4. Pale yellow. WBC 193. Cx pending, low suspicion for SBP - GI on board - Sister reports that patient is not interested in hospice and he definitely wants to keep living - Continue ppi (3) Chronic hepatitis C with cirrhosis: Plan: As noted above, unclear if ever treated for hepatitis C (4) Pancytopenia: Plan: Secondary to cirrhosis, levels are at baseline Follow CBC (5) Bipolar disorder: Plan: Gabapentin on hold due to lethargy Restart tomorrow if mental status is improved (6) Opioid use disorder: Plan: continue Subutex (7) Alcoholism: Plan: In remission Continue thiamine and folic acid (8) Type 2 diabetes mellitus: Plan: Hemoglobin A1c quite low NovoLog sliding scale He likely does not need insulin at home (9) COPD (chronic obstructive pulmonary disease): Plan: No acute issues Not on maintenance inhalers at home (10) AAA (abdominal aortic aneurysm): Plan: Noted as a diagnosis in the chart but CT abdomen/pelvis from 06/2022 reports atherosclerosis of the aorta without aneurysm Unsure why this diagnosis is in the chart Plan DVT prophylaxis heparin SQ Disposition-awaiting rehab placement. Patient may be stronger now that he is more awake. Will ask PT/OT to reevaluate him tomorrow to see if he can go home tomorrow. Admission and Anticipated Discharge Date Admission Date: May 30, 2023 Subjective Patient says that he has been holding "a lot of bowel movements". Denies abdominal pain. Denies chest pain or shortness of breath. He was sleeping when I walked in, woke up, answered my questions and fell back asleep. His meds had been sitting on the table until I reminded him to take them. Per nurse, patient has had at least 3 bowel movements today. Review of Systems Review of Systems: All systems reviewed & are unremarkable except as noted in Subjective Physical Exam Physical Exam: General: Sleeping, arousable, able to converse when awake Heart: S1, S2/regular rate and rhythm, no murmur rubs or gallops Lungs: Clear to auscultation bilaterally. Normal effort Abdomen: Soft/nontender/distended abdomen. Extremities: No clubbing/cyanosis. No edema Behavior: Appropriate, cooperative Results & Data Results & Data Vital Signs (Past 12 Hours) Vital Signs Temp Pulse Pulse Resp BP Pulse Ox O2 Del Method 06/02/23 11:57 36.7 C 91 H 18 109/69 96 Room Air 06/02/23 10:19 71 06/02/23 08:10 36.3 C L 85 18 119/58 L 97 Room Air 06/02/23 03:27 36.8 C 68 21 130/68 94 Room Air Laboratory Results Abnormal lab results 06/01/23 06/01/23 06/02/23 Range/Units 16:58 20:09 05:20 WBC 4.49 L (4.8-10.8) K/ul RBC 3.28 L (4.70-6.10) M/uL Hgb 10.3 L (14.0-18.0) g/dl Hct 31.1 L (42.0-52.0) % RDW Std Deviation 54.0 H (36.4-46.3) fL RDW Coeff of Nabeel 15.5 H (11.5-14.5) % Plt Count 35 L (130-400) K/uL PT 20.5 H (9.0-12.0) Seconds INR 2.0 H (0.9-1.1) Sodium 133 L (136-145) mmol/L Potassium 3.2 L (3.5-5.1) mmol/L BUN/Creatinine Ratio 23.8 H (10-20) Glucose 112 H (70-99(Fasting)) mg/dl POC Glucose 116 H 130 H (70-99) mg/dl Calcium 7.2 L (8.6-10.3) mg/dl Magnesium 1.6 L (1.7-2.4) mg/dl Total Bilirubin 2.2 H (0.2-1.0) mg/dl AST 63 H (13-39) U/L Total Protein 5.6 L (6.0-8.3) gm/dl Albumin 2.1 L (3.4-5.0) gm/dl Albumin/Globulin Ratio 0.6 L (0.9-2) 06/02/23 Range/Units 11:56 WBC (4.8-10.8) K/ul RBC (4.70-6.10) M/uL Hgb (14.0-18.0) g/dl Hct (42.0-52.0) % RDW Std Deviation (36.4-46.3) fL RDW Coeff of Nabeel (11.5-14.5) % Plt Count (130-400) K/uL PT (9.0-12.0) Seconds INR (0.9-1.1) Sodium (136-145) mmol/L Potassium (3.5-5.1) mmol/L BUN/Creatinine Ratio (10-20) Glucose (70-99(Fasting)) mg/dl POC Glucose 136 H (70-99) mg/dl Calcium (8.6-10.3) mg/dl Magnesium (1.7-2.4) mg/dl Total Bilirubin (0.2-1.0) mg/dl AST (13-39) U/L Total Protein (6.0-8.3) gm/dl Albumin (3.4-5.0) gm/dl Albumin/Globulin Ratio (0.9-2) PG Care Time/CCT Total # of Minutes Spent Total Time Spent with Patient: Total time spent is greater than 50% in coordination of care (as documented) at patient's floor/unit and/or counseling patient: Coding Level of Care Code 87875 SUB INP/OBS CARE 2/35MIN Diagnoses Hepatic encephalopathy K76.82 Alcoholic cirrhosis of liver K70.30 Chronic hepatitis C with cirrhosis B18.2; K74.60 Pancytopenia D61.818 Bipolar disorder F31.9 Opioid use disorder F11.90 Alcoholism F10.20 Type 2 diabetes mellitus E11.9 COPD (chronic obstructive pulmonary disease) J44.9 AAA (abdominal aortic aneurysm) I71.4
[2023-06-02] MEDS: MAGNESIUM SULFATE / D5W 1 GM/100 ML BAG IV SCH ×3 (15:47→21:10)
[2023-06-02] MEDS: POTASSIUM CHLORIDE CRTAB 20 MEQ TABCR PO STA ×2 (15:54→16:04)
[2023-06-02] MEDS ORDERED: POTASSIUM CHLORIDE 20 MEQ/15 ML UDC PO STA (16:03)
[2023-06-02] MEDS: TAMSULOSIN HCL 0.4 MG CAP PO SCH (20:55)
[2023-06-03 05:34] LABS: INR 2.1 (0.9-1.1); Prothrombin Time 21.5 Seconds (9.0-12.0)
[2023-06-03] MEDS: INSULIN ASPART PER UNIT CHARGE SC SCH ×3 (08:59→17:21)
[2023-06-03] MEDS: buprenorphine HCL 8 MG SUBL SL SCH (08:59)
[2023-06-03] MEDS: LACTULOSE SYRUP 20 GM/30 ML UDC PO SCH ×2 (09:00→12:49)
[2023-06-03] MEDS: SPIRONOLACTONE 25 MG TAB PO SCH (09:00)
[2023-06-03] MEDS: FOLIC ACID 1 MG TAB PO SCH (09:00)
[2023-06-03] MEDS: rifAXIMin 550 MG TABLET PO SCH (09:00)
[2023-06-03] MEDS: PANTOprazole 40 MG TAB PO SCH (09:00)
[2023-06-03] MEDS: FUROSEMIDE 40 MG TAB PO SCH (09:00)
[2023-06-03] MEDS: HEPARIN SOD 5,000 UNIT/0.5 ML VIAL SQ SCH (09:00)
[2023-06-03] MEDS: THIAMINE HCL 100 MG TAB PO SCH (09:00)
--- NOTE | 2023-06-03 14:07 | Discharge Summary ---
Date of Service June 03, 2023 Admission HPI Per Admitting Provider The patient is a 62-year-old male with past medical history including bipolar disorder, recovering alcoholism, chronic hepatitis C with cirrhosis, gastroparesis, GERD, esophageal dysphagia, hepatic encephalopathy, hyp erammonemia, opiate use disorder, hypertension, and determined to not be a transplant candidate from letter on 05/16/2023 due to poor functional status and advanced cardiac disease Admission Exam Per Admitting Provider The patient is confused and disoriented, normocephalic and atraumatic, lying in bed and in no acute distress. HEENT--PERRL, EOMI, mucous membranes and oropharynx dry. Neck--supple. No JVD. No bruits. Thyroid normal, trachea midline, no adenopathy. Heart--normal S1 and S2. No murmurs, rubs or gallops. Lungs--clear bilaterally, no respiratory distress, no accessory muscle use. Abdomen--normal bowel sounds and soft. Nontender. Nondistended, no hernias or masses, no organomegaly. Extremities--no cyanosis or clubbing. No edema. Dermatologic--normal skin turgor, normal color, no abnormal lymph nodes, no rash. Neurologic--cranial nerves II through XII grossly intact. Rheumatologic--limited exam Psychiatric--confused and disoriented. Principal Diagnosis Acute hepatic encephalopathy secondary to noncompliance to lactulose Discharge Exam General: Awake, conversant Heart: S1, S2/regular rate and rhythm, no murmur rubs or gallops Lungs: Clear to auscultation bilaterally. Normal effort Abdomen: Soft/nontender/distended abdomen. Extremities: No clubbing/cyanosis. No edema Behavior: Appropriate, cooperative Discharge Data Allergies Allergy/AdvReac Type Severity Reaction Status Date / Time No Known Allergies Allergy Verified 04/27/23 20:42 Consultations 05/30/23 20:30 ED Decision to Admit Stat 05/31/23 11:04 Consult Urology Routine 05/31/23 13:02 Consult Gastroenterology Routine Ordered Studies 05/30/23 18:55 CT head/brain wo con Stat 05/31/23 12:49 IR paracentesis abd w/img US Routine Hospital Course (1) Hepatic encephalopathy: Seems to have improved after getting lactulose Goal 3-5 bowel movements per day The patient has been refusing all medications since he has been awake, including the lactulose This was most likely related to medication noncompliance He is alert and awake, wanting to go home regardless of whether I discharge him or not. He is willing to leave AMA. The only medication he cares about is the Suboxone and he has his Suboxone clinic appointment tomorrow. Medication compliance emphasized (2) Alcoholic cirrhosis of liver: Was declined to be on liver transplant list as of the end of April due to poor social support and cardiac issues. . Should still follow-up with outpatient race car mechanic on discharge. Remains encephalopathic above baseline requiring ongoing care - His total bilirubin is up significantly from previous, INR elevated, pancytopenia. - He still would like symptomatic care Child Dick class C, meldNA 18 - Continue lasix 40 mg daily and and spironolactone 100 mg daily Patient most likely is noncompliant to all of his medications as he was refusing his medications here after he became awake and alert - Peritoneal serum albumin <1.4. Pale yellow. WBC 193. Cx pending, low suspicion for SBP - GI on board - Sister reports that patient is not interested in hospice and he definitely wants to keep living - Continue ppi (3) Chronic hepatitis C with cirrhosis: As noted above, unclear if ever treated for hepatitis C (4) Pancytopenia: Secondary to cirrhosis, levels are at baseline (5) Bipolar disorder: Resume gabapentin (6) Opioid use disorder: continue Subutex (7) Alcoholism: In remission (8) Type 2 diabetes mellitus: Hemoglobin A1c quite low NovoLog sliding scale He likely does not need insulin at home (9) COPD (chronic obstructive pulmonary disease): No acute issues Not on maintenance inhalers at home (10) AAA (abdominal aortic aneurysm): Noted as a diagnosis in the chart but CT abdomen/pelvis from 06/2022 reports atherosclerosis of the aorta without aneurysm Unsure why this diagnosis is in the chart Plan PT/OT had initially recommended rehab placement but at that time he was altered with hepatic encephalopathy. After lactulose therapy, he is no more encephalopathic. Per nurse he is able to walk to the bathroom and back without any problems. Per nurse, he is able to walk on his own. I cleared him for discharge to home. He also voided after the catheter was removed. Urinary retention has resolved. Total Time Total Time Spent Total Time Spent (In Minutes): 35 Discharge Plan Discharge Items Patient Disposition: Home - Self-Care Reason For Visit: HEPATIC ENCEPHALOPATHY Discharge Diagnosis: Hepatic encephalopathy, likely due to noncompliance to lactulose Cirrhosis of the liver due to hepatitis C and alcohol Activity: Resume your previous activity Non-emergency contact: Primary Care Provider Call non-emergency contact if: you have any medication questions and your symptoms worsen Follow-up/Referrals: Ina Hearn CRNP [Primary Care Provider] - Diet: Heart Healthy Addtl Attending Provider Instructions: Advised to follow-up with PCP in 1 week Advised to follow-up with hepatology in 2 weeks Pending Studies at Discharge: No Stand-Alone Forms: My [facility] [place] [facility] Medications and DC Order Prescriptions: New spironolactone 25 mg Tablet 50 mg PO DAILY 30 Days Qty: 60 0RF Continued insulin lispro [Humalog U-100 Insulin] 100 unit/mL Solution 0 unit SUBCUT UD Patient Comments: only takes once daily 10 units because he only eats once daily Rx Instructions: UNABLE TO VERIFY THIS MED. insulin glargine [Lantus Solostar U-100 Insulin] 100 unit/mL (3 mL) Insulin Pen 0 unit SUBCUT UD Patient Comments: 20 units Rx Instructions: UNABLE TO VERIFY THIS MED. prescribed 80 units BID ipratropium-albuterol 0.5 mg-3 mg(2.5 mg base)/3 mL solution for nebulization 3 ml INHALATION QID PRN (Reason: Shortness Of Breath Or Wheezing) Rx Instructions: UNABLE TO VERIFY THIS MED. gabapentin 800 mg tablet 800 mg PO TID diclofenac sodium [Voltaren Arthritis Pain] 1 % Gel 4 g EXT QID PRN (Reason: back pain) Qty: 1 0RF Rx Instructions: purchase hsaz-lim-nradhjn omeprazole 40 mg capsule,delayed release(DR/EC) 40 mg PO QAM Qty: 30 1RF Rx Instructions: UNABLE TO VERIFY THIS MED. note increased dose. buprenorphine HCl 8 mg tablet, sublingual 8 mg SUBLINGUAL QAM lactulose 20 gram/30 mL Solution 20 g PO TID Qty: 60 0RF Patient Comments: haven't been taking three times a day/usually take once or twice a day buprenorphine HCl 8 mg tablet, sublingual 16 mg SUBLINGUAL QPM furosemide [Lasix] 40 mg tablet 40 mg PO DAILY Qty: 60 0RF Discharge Orders: Discharge Order (Routine); Ordered 06/03/23 Ordered By: Romeo Foote Admission Data Admit Date/Time: 05/30/23 21:56 Attending Provider: Romeo Foote Admit Provider: Sammy Shannon Primary Care Provider: Ina Hearn Other Providers: Sammy Shannon; Magdi Salcedo; Azam Leach Coding Level of Care Code 17581 INP/OBS DISCH >30 MIN Diagnoses Hepatic encephalopathy K76.82 Alcoholic cirrhosis of liver K70.30 Chronic hepatitis C with cirrhosis B18.2; K74.60 Pancytopenia D61.818 Bipolar disorder F31.9 Opioid use disorder F11.90 Alcoholism F10.20 Type 2 diabetes mellitus E11.9 COPD (chronic obstructive pulmonary disease) J44.9 AAA (abdominal aortic aneurysm) I71.4
== END 2023-06-03 17:51 | disposition home or self-care (01) | DRG 442 ==
LOC: ED 18:18 → EDINP 21:56 → SUATTDRO 21:56 → 4W 23:49

== ENCOUNTER 2023-11-06 12:41 | Inpatient (IN) ==
--- NOTE | 2023-11-06 13:03 | Emergency Department Note ---
Impression & Plan Sepsis, Pneumonia, Acute renal failure, Cirrhosis, Hypomagnesemia, Left leg cellulitis, Pancytopenia, Hypoalbuminemia ED Provider Note NAME: KAYODE GREENFIELD AGE: 62 SEX: M : 1960 ARRIVES VIA: Ambulance INFORMANT: Patient ED PROVIDER(S): James Ashby MD CHIEF COMPLAINT: Body pain PLAN: Disposition: Admit MEDICAL DECISION MAKING: The patient is a 62-year-old gentleman with a past medical history of prior alcoholism, chronic hepatitis C with cirrhosis, thrombocytopenia, hepatic encephalopathy, bipolar disorder, GERD, opioid use disorder, who presents to the emergency department via EMS for evaluation of generalized body pain over the past several days. He denies objective fevers. He has had mild productive cough. He continues to have loose stool in the setting of his lactulose for hyperammonemia. He reports to RN arrival that he fell in his home 2 days ago and hit his right abdomen and ribs off of the bedside table. He has pain in this region but has generalized body pain as well well. He reports after having a fall he had nausea and vomiting consistently. He reports some mild nausea at this time. He reports decreased urination but denies burning with urination. He has redness, blistering of the left lower extremity which she is unsure of as to when it began. He reports mild shortness of breath. The patient did have a paracentesis performed on 10/23 in the outpatient setting. He denies feeling substantial reaccumulation. On evaluation the patient is ill-appearing in no distress, febrile to 38.6 with vital signs otherwise stable. O2 saturation is 94 on NC. Patient exhibits dry cracked mucous membranes. He has mild abdominal distention but is not tense. He has generalized discomfort without discrete tenderness. There is no guarding or rebound. Left lower extremity demonstrates erythema warmth, tenderness and edema from the proximal pretibial region distally to the foot with excoriated anterior aspect with blistering. There is no crepitus. EKG without overt acute ischemia. CXR demonstrates cardiomegaly with vascular congestion. Left greater than right pleural effusions noted with mild basilar consolidation suspicious for pneumonia given the clinical context. Lung findings better characterized on CT imaging.. WBC 17.6 K with neutrophilia but no left shift at this time. H/H similar to prior. Platelets 54 K, similar to prior values in setting of cirrhosis. INR is 2.1, increased from recent of 1.5 though approximate to prior range of values. Creatinine 1.8, reflecting acute kidney injury. Lactic acid initially 2.6. Magnesium 1.6 with repletion provided. Total and direct bilirubin are elevated from recent with total bilirubin 3.8 and direct bili 1.8. AST, ALT and alk phos are normal. Ammonia is not elevated. High-sensitivity troponin is 9.8, within normal limits. Lipase not elevated. Procalcitonin is elevated at 11.4, consistent with suspicion for sepsis. Respiratory viral panel/[employer] was negative. CT of the head negative for acute abnormalities. CT of the chest demonstrates scattered groundglass opacities and consolidation of bilateral upper lobes as well as left lung base. Subacute left sided rib fractures are described. No right-sided rib fractures. Moderate to large volume ascites as described with splenomegaly and esophageal varices indicative of portal hypertension. Gallbladder is distended with calcified gallstones with no convincing evidence on CT of cholecystitis. Evidence of chronic pancreatitis is described. Empiric treatment initiated with IV ceftriaxone, vancomycin as well as Flagyl. Antibiotics administered prior to paracentesis so as to not delay treatment of sepsis. Patient was given IV fluid hydration though with caution given the patient's cirrhosis with hypoalbuminemia. A total of 1500 cc of normal saline was administered and 30 cc/kg was deferred at this time. Patient's heart rate and blood pressure remained stable. While patient's sepsis/fevers likely related to pneumonia given patient's ascites patient did agree with diagnostic paracentesis. This was performed per procedure note below were 1500 cc of yellow-clear fluid was obtained and sent for culture and cell counts. Patient agrees with plan for admission for further management. Case was [place], [facility] [place] who will evaluate the patient for admission. Gram stain was subsequently negative. Culture still pending. Cell counts are not suggestive of SBP at this time with WBC 166 with 64% neutrophils. Triage Nursing notes reviewed and agree them. Prior/external medical records reviewed Vital Signs: reviewed Differential diagnosis: Sepsis, UTI, pneumonia, metabolic, electrolyte abnormalities, cardiac sources, intracerebral event, toxicologic, neurologic, as well as other pathologies. ER treatment provided: See below. Diagnostics interpreted by me: ECG: Normal sinus rhythm, 72 bpm, no ectopy, no overt ST elevation or depression, QTc 448, QRS 88. Cardiac Monitoring: An order for continuous cardiac monitoring was placed and demonstrated Normal sinus rhythm, 72 bpm, no ectopy Laboratory studies: See below Imaging studies: See below Consultation(s): Case was discussed with [place]. Chapp[place], [facility] [place], who will evaluate the patient for admission. HPI: The patient is a 62-year-old gentleman with a past medical history of prior alcoholism, chronic hepatitis C with cirrhosis, thrombocytopenia, hepatic encephalopathy, bipolar disorder, GERD, opioid use disorder, who presents to the emergency department via EMS for evaluation of generalized body pain over the past several days. He denies objective fevers. He has had mild productive cough. He continues to have loose stool in the setting of his lactulose for hyperammonemia. He reports to RN arrival that he fell in his home 2 days ago and hit his right abdomen and ribs off of the bedside table. He has pain in this region but has generalized body pain as well well. He reports after having a fall he had nausea and vomiting consistently. He reports some mild nausea at this time. He reports decreased urination but denies burning with urination. He has redness, blistering of the left lower extremity which she is unsure of as to when it began. He reports mild shortness of breath. The patient did have a paracentesis performed on 10/23 in the outpatient setting. He denies substantial reaccumulation. ROS: See above HPI for pertinent positives & negatives. A total of 10 systems reviewed and were otherwise negative. VITALS:See Below PHYSICAL EXAMINATION: GENERAL: Awake, alert, acute on chronically ill-appearing, in no distress HENT: Normocephalic, atraumatic. Oropharynx with dry mucous membranes and otherwise unremarkable. EYES: Normal conjunctiva. Sclera non-icteric. NECK: Supple. No nuchal rigidity. FROM. No JVD. RESPIRATORY: Clear to auscultation. CARDIAC: Regular rate, normal rhythm. Extremities warm and well perfused. Pulses equal. ABDOMEN: Mild abdominal distention but is not tense. He has generalized discomfort without discrete tenderness. There is no guarding or rebound. MUSCULOSKELETAL: Chest examination reveals no tenderness. The back is symmetrical on inspection without obvious abnormality. There is no CVA tenderness to palpation. No joint edema. LOWER EXTREMITIES: Calves are equal size bilaterally and non-tender. No edema. No discoloration. Left lower extremity demonstrates erythema warmth, tenderness and edema from the proximal pretibial region distally to the foot with excoriated anterior aspect with blistering. There is no crepitus. NEURO: Normal sensorium. No sensory or motor deficits noted. SKIN: No rash or jaundice noted. ED COURSE: Procedures: Paracentesis Indication: Ascites Verbal consent was obtained after the risks and benefits were explained. At this time, the risks of the procedure are less than the risks of NOT performing the procedure. The patient was placed in the supine position and the right lower quadrant abdomen was prepped with chlorhexadine and draped in the standard fashion. Site was anesthetized locally with 1% lidocaine without epinephrine. Paracentesis needle was carefully advanced into peritoneal cavity. Yellow-clear fluid was obtained and the pigtail catheter was advanced while the needle was withdrawn. 1500 cc of yellow-clear fluid was obtained and sent for studies. A bandaid was placed. The patient tolerated the procedure well and there were no complications. Critical Care: I have personally spent greater than 55 minutes of critical care time in the direct management of this patient. This includes bedside care, interpretation of diagnostic studies, and testing, discussion with consultants, patient, and family members, and other required patient management activities. This 55 minutes is in excess of all separately billable procedures. James Ashby MD Past Med/Surg History Problem List (Updated 11/06/23 @ 23:38 by James Ashby MD) Hypoalbuminemia (Acute) Cirrhosis (Acute) Acute renal failure (Acute) Pneumonia (Acute) Sepsis (Acute) Diabetes Aspiration pneumonia Left leg cellulitis (Acute) Chronic hypoxic respiratory failure Recurrent falls Sepsis Abdominal pain (Acute) Abdominal ascites (Acute) Acute hepatic encephalopathy (Acute) Urinary retention Alcoholism Confusion and disorientation Hepatic encephalopathy Thrombocytopenia Bipolar disorder Recovering alcoholic quit November 2019 > brief relapse Mar 2022, was hospitalized [facility], high ammonia levels, once DC'ed from hospital, no more alcohol Chronic hepatitis C with cirrhosis Alcohol intoxication (Acute) Lymphadenopathy (Acute) Urinary tract infection (Acute) Gastroparesis Encounter for pre-operative examination Esophageal dysphagia GERD (gastroesophageal reflux disease) COPD exacerbation (Acute) Pneumonitis Scrotal abscess Pancytopenia (Acute) Urinary frequency Nocturia Metabolic encephalopathy Overdose Urinary tract infection (Acute) Hyperammonemia Electrolyte abnormality Hyponatremia RODRIGO (acute kidney injury) Opioid use disorder Prolonged QT interval GERD (gastroesophageal reflux disease) RODRIGO (acute kidney injury) (Acute) Overdose (Acute) Hyperammonemia (Acute) Dehydration (Acute) Hypoxia Encephalopathy (Acute) Abdominal distension Acute hepatitis Hypokalemia COVID-19 Lower extremity edema Hypomagnesemia (Acute) Hypoxia (Acute) Anasarca (Acute) Candidiasis of mouth and esophagus Colon cancer screening Anxiety Hepatitis C no treatment as of yet Hypertension Medical History Cellulitis Pulmonary edema Elevated lactic acid level Urinary retention Acute hyperkalemia Lumbar vertebral fracture 06/2022, fall at home, hospitalzied at [facility] for 2 weeks; no sx. History of recent hospitalization d/c from [place] 12/11/22 psychiatric reasons. Anxiety/depression. Controlled at current. Lyme borreliosis Elevated bilirubin Compression fracture of L4 vertebra Vitamin D deficiency Closed compression fracture of L1 vertebra Alcohol abuse, in remission Venous stasis dermatitis Cirrhosis Abdominal ascites Pancytopenia Type 2 diabetes mellitus History of heroin abuse quit 2017 Gastroparesis Nocturnal hypoxia per pt, prescribed home O2 @ 2 LPM qHS and PRN daily in past but unable to obtain as of late r/t financial struggles. admits to using sister's oxygen at night when able. current: 2.5 L oxygen HS. Dysphagia on occasion Fibromyalgia History of kidney stones GERD (gastroesophageal reflux disease) DM type 2 (diabetes mellitus, type 2) IDDM/no inuslin use over past 2 weeks/blood sugars have been running around 100 - pt monitors. [employer] is aware and has nova with pcp on December 14 2022. PTSD (post-traumatic stress disorder) History of migraine History of DVT (deep vein thrombosis) "few years ago" LLE -- unk etiology -- per pt, no treatment at time of dx Hyperlipidemia Sleep apnea non compliant with CPAP COPD (chronic obstructive pulmonary disease) rare res inh use Alcoholic cirrhosis of liver Rib fracture years ago, healed, no current fractures AAA (abdominal aortic aneurysm) per pt, last evaluated 6 mo ago [facility] or [facility]? "around 5 cm" -->says was referred to vascular surgery but no appt as of yet Surgical History History of abdominal paracentesis S/P excisional debridement LLE History of colonoscopy History of ear surgery as a child History of tonsillectomy History of tooth extraction History of esophagogastroduodenoscopy (EGD) Family History Other No family history of adverse response to anesthesia No significant medical problems Social History Smoking Status: Current every day smoker Tobacco Type: Cigarettes Cigarettes Per Day: 1/2 pack per day; Second Hand Exposure: No; Do You Dip or Chew Tobacco: No; Hx Alcohol Use: No (pt states he "stopped drinking about a year ago") Hx Substance Use: No Preferred Language: Arabic Communication Ability: Effective Visual Impairment: Limited Supervisor Mirror Fabrication Required: No Beliefs That Will Affect Care: None marital status: Single Current Living Situation: Alone Current Living Situation Comment: care home apartments-independently How many Children do You have: 0 Other Information That Helps Us Care for You: No Feels Safe at Home: Yes Safety Concerns: Feels Safe At This Time Assistive Devices: Cane, Denture - Upper, Denture - Lower, Glasses, Oxygen - Continuous and Walker Allergies Allergies Allergy/AdvReac Type Severity Reaction Status Date / Time No Known Allergies Allergy Verified 11/06/23 17:21 Home Meds Home Medications Medication Instructions Recorded Confirmed insulin glargine 100 unit/mL (3 0 unit subcut UD 08/20/20 11/06/23 mL) subcutaneous pen (Lantus Solostar U-100 Insulin) insulin lispro 100 unit/mL 0 unit subcut UD 08/20/20 11/06/23 subcutaneous solution (Humalog U-100 Insulin) buprenorphine HCl 8 mg sublingual 8 mg sublingual QAM 03/30/22 11/06/23 tablet gabapentin 800 mg tablet 800 mg PO TID 06/12/22 11/06/23 buprenorphine HCl 8 mg sublingual 16 mg sublingual QPM 04/27/23 11/06/23 tablet fluoxetine 20 mg tablet 20 mg PO DAILY 11/06/23 11/06/23 furosemide 20 mg tablet 20 mg PO .BID UD 11/06/23 11/06/23 spironolactone 100 mg tablet 100 mg PO DAILY 11/06/23 11/06/23 Previous Rx's Medication Instructions Recorded lactulose 20 gram/30 mL oral 20 g (30 mL) PO TID #60 mL 04/21/22 solution diclofenac sodium 1 % topical gel 4 g EXT QID PRN back pain #1 tube 07/18/22 (Voltaren Arthritis Pain) omeprazole 40 mg capsule,delayed 40 mg PO QAM #30 caps 07/18/22 release Results & Data (ED) Vital Signs Vital Signs - 24 hr 11/06/23 12:54 11/06/23 13:13 11/06/23 13:13 Temperature 38.6 C H Temperature Source Oral Pulse Rate 74 71 71 Pulse Rate [Apical] Pulse Rate from SpO2 Sensor Pulse Rhythm Regular Regular Pulse Strength Normal Respiratory Rate 22 22 Respiratory Effort / Characteristics Non-Labored Spontaneous Respiratory Depth Normal Respiratory Pattern Regular Blood Pressure 122/69 Blood Pressure [Right Arm] Blood Pressure Mean 86 Blood Pressure Mean [Right Arm] Blood Pressure Position Sitting Pulse Oximetry 93 93 Oxygen Delivery Method Nasal Cannula Nasal Cannula Oxygen Flow Rate 2.5 2.5 Sepsis Recent Fever Within 48 Hours Yes Sepsis New/Unexplained Change in Mental Status No Sepsis Action Taken by Nursing Physician Notified 11/06/23 15:00 11/06/23 17:00 11/06/23 17:32 Temperature Temperature Source Pulse Rate 66 Pulse Rate [Apical] 68 66 Pulse Rate from SpO2 Sensor Pulse Rhythm Pulse Strength Respiratory Rate 18 16 Respiratory Effort / Characteristics Respiratory Depth Respiratory Pattern Blood Pressure Blood Pressure [Right Arm] 127/74 120/65 Blood Pressure Mean Blood Pressure Mean [Right Arm] 91 83 Blood Pressure Position Pulse Oximetry 94 94 Oxygen Delivery Method Nasal Cannula Nasal Cannula Oxygen Flow Rate 2.5 2.5 Sepsis Recent Fever Within 48 Hours Sepsis New/Unexplained Change in Mental Status Sepsis Action Taken by Nursing 11/06/23 18:44 11/06/23 19:00 Temperature Temperature Source Pulse Rate 66 Pulse Rate [Apical] 64 Pulse Rate from SpO2 Sensor 59 L Pulse Rhythm Pulse Strength Respiratory Rate 16 20 Respiratory Effort / Characteristics Non-Labored Spontaneous Respiratory Depth Normal Respiratory Pattern Blood Pressure 134/65 Blood Pressure [Right Arm] 114/66 Blood Pressure Mean 88 Blood Pressure Mean [Right Arm] 82 Blood Pressure Position Pulse Oximetry 96 98 Oxygen Delivery Method Nasal Cannula Oxygen Flow Rate Sepsis Recent Fever Within 48 Hours Sepsis New/Unexplained Change in Mental Status Sepsis Action Taken by Nursing Laboratory Data Attestation: I reviewed the patient's lab results. 11/06/23 12:56 11/06/23 12:56 Lab Results 11/06/23 11/06/23 11/06/23 Range/Units 12:56 14:50 15:43 WBC 17.66 H (4.8-10.8) K/ul RBC 3.58 L (4.70-6.10) M/uL Hgb 11.1 L (14.0-18.0) g/dl Hct 32.5 L (42.0-52.0) % MCV 90.8 (80.0-100.0) fL MCH 31.0 (25.0-34.0) pg MCHC 34.2 (32.0-36.0) g/dL RDW Std Deviation 59.1 H (36.4-46.3) fL RDW Coeff of Nabeel 17.7 H (11.5-14.5) % Plt Count 54 L (130-400) K/uL MPV 11.6 (9.4-12.4) fL Immature Gran % (Auto) 1.0 % Neut % (Auto) 83.8 % Lymph % (Auto) 8.3 % [place] % (Auto) 6.1 % Eos % (Auto) 0.6 % Baso % (Auto) 0.2 % Neut # (Auto) 14.81 H (1.40-6.50) K/uL Lymph # (Auto) 1.46 (1.20-3.40) K/uL [place] # (Auto) 1.08 H (0.11-0.59) K/uL Eos # (Auto) 0.10 (0.00-0.50) K/uL Baso # (Auto) 0.03 (0.00-0.20) K/uL Immature Gran # (Auto) 0.18 (0.01-0.20) K/uL ESR 32 H (0-20) mm/hr PT 20.9 H (9.0-12.0) Seconds INR 2.1 H (0.9-1.1) Sodium 133 L (136-145) mmol/L Potassium 4.8 (3.5-5.1) mmol/L Chloride 104 (98-107) mmol/L Carbon Dioxide 23 (21-32) mmol/L Anion Gap 6 (3-11) BUN 44 H (6-23) mg/dl Creatinine 1.89 H (0.6-1.4) mg/dl Est Cr Clr Drug Dosing 51.4 ml/min Est GFR ( Amer) 43.7 ml/min Est GFR (Non-Af Amer) 37.7 ml/min BUN/Creatinine Ratio 23.3 H (10-20) Glucose 73 (70-99(Fasting)) mg/dl Lactate 2.6 H* (0.4-2.0) mmol/L Calcium 7.9 L (8.6-10.3) mg/dl Magnesium 1.6 L (1.7-2.4) mg/dl Total Bilirubin 3.8 H (0.2-1.0) mg/dl Direct Bilirubin 1.8 H (0-0.2) mg/dl AST 39 (13-39) U/L ALT 13 (7-52) U/L Alkaline Phosphatase 69 (34-104) U/L Ammonia 32.0 (18-72) umol/L Troponin I High Sens 9.8 (0-20) pg/ml Total Protein 6.1 (6.0-8.3) gm/dl Albumin 2.3 L (3.4-5.0) gm/dl Globulin 3.8 (2.5-4.0) gm/dl Albumin/Globulin Ratio 0.6 L (0.9-2) Lipase 10 L (11-82) U/L Procalcitonin 11.40 H (0-0.5) ng/ml Fluid Neutrophils % % Fluid Lymphocytes % % Fluid Meso/Macro/[place] % % Fluid Comment Peritoneal Color Peritoneal Appearance Peritoneal WBC (Auto) (0-300) /ul Peritoneal RBC (Auto) /uL Peritoneal Tot Protein gm/dl Peritoneal Albumin gm/dl Ethyl Alcohol mg/dL < 10.0 (<10.0) mg/dl Adenovirus (PCR) (NotDetected) B. pertussis DNA (PCR) (NotDetected) B.parapertussis DNA PCR (NotDetected) C. pneumoniae DNA (PCR) (NotDetected) Coronavirus OC43 (PCR) (NotDetected) Coronavirus HKU1 (PCR) (NotDetected) Coronavirus 229E (PCR) (NotDetected) SARS-CoV-2 (PCR) (NotDetected) Coronavirus NL63 (PCR) (NotDetected) Human Metapneumovir PCR (NotDetected) Influenza Type A (PCR) (NotDetected) Influenza Type B (PCR) (NotDetected) M. pneumoniae (PCR) (NotDetected) Parainfluenza 1 (PCR) (NotDetected) Parainfluenza 2 (PCR) (NotDetected) Parainfluenza 3 (PCR) (NotDetected) Parainfluenza 4 (PCR) (NotDetected) RSV (PCR) (NotDetected) Entero/Rhino (PCR) (NotDetected) 11/06/23 11/06/23 Range/Units 15:49 19:05 WBC (4.8-10.8) K/ul RBC (4.70-6.10) M/uL Hgb (14.0-18.0) g/dl Hct (42.0-52.0) % MCV (80.0-100.0) fL MCH (25.0-34.0) pg MCHC (32.0-36.0) g/dL RDW Std Deviation (36.4-46.3) fL RDW Coeff of Nabeel (11.5-14.5) % Plt Count (130-400) K/uL MPV (9.4-12.4) fL Immature Gran % (Auto) % Neut % (Auto) % Lymph % (Auto) % [place] % (Auto) % Eos % (Auto) % Baso % (Auto) % Neut # (Auto) (1.40-6.50) K/uL Lymph # (Auto) (1.20-3.40) K/uL [place] # (Auto) (0.11-0.59) K/uL Eos # (Auto) (0.00-0.50) K/uL Baso # (Auto) (0.00-0.20) K/uL Immature Gran # (Auto) (0.01-0.20) K/uL ESR (0-20) mm/hr PT (9.0-12.0) Seconds INR (0.9-1.1) Sodium (136-145) mmol/L Potassium (3.5-5.1) mmol/L Chloride (98-107) mmol/L Carbon Dioxide (21-32) mmol/L Anion Gap (3-11) BUN (6-23) mg/dl Creatinine (0.6-1.4) mg/dl Est Cr Clr Drug Dosing ml/min Est GFR ( Amer) ml/min Est GFR (Non-Af Amer) ml/min BUN/Creatinine Ratio (10-20) Glucose (70-99(Fasting)) mg/dl Lactate (0.4-2.0) mmol/L Calcium (8.6-10.3) mg/dl Magnesium (1.7-2.4) mg/dl Total Bilirubin (0.2-1.0) mg/dl Direct Bilirubin (0-0.2) mg/dl AST (13-39) U/L ALT (7-52) U/L Alkaline Phosphatase (34-104) U/L Ammonia (18-72) umol/L Troponin I High Sens (0-20) pg/ml Total Protein (6.0-8.3) gm/dl Albumin (3.4-5.0) gm/dl Globulin (2.5-4.0) gm/dl Albumin/Globulin Ratio (0.9-2) Lipase (11-82) U/L Procalcitonin (0-0.5) ng/ml Fluid Neutrophils % 64 % Fluid Lymphocytes % 5 % Fluid Meso/Macro/[place] % 31 % Fluid Comment Peritoneal Color Pale Yellow Peritoneal Appearance Clear Peritoneal WBC (Auto) 166 (0-300) /ul Peritoneal RBC (Auto) < 2000 /uL Peritoneal Tot Protein < 3.0 gm/dl Peritoneal Albumin < 1.5 gm/dl Ethyl Alcohol mg/dL (<10.0) mg/dl Adenovirus (PCR) Not Detected (NotDetected) B. pertussis DNA (PCR) Not Detected (NotDetected) B.parapertussis DNA PCR Not Detected (NotDetected) C. pneumoniae DNA (PCR) Not Detected (NotDetected) Coronavirus OC43 (PCR) Not Detected (NotDetected) Coronavirus HKU1 (PCR) Not Detected (NotDetected) Coronavirus 229E (PCR) Not Detected (NotDetected) SARS-CoV-2 (PCR) Not Detected (NotDetected) Coronavirus NL63 (PCR) Not Detected (NotDetected) Human Metapneumovir PCR Not Detected (NotDetected) Influenza Type A (PCR) Not Detected (NotDetected) Influenza Type B (PCR) Not Detected (NotDetected) M. pneumoniae (PCR) Not Detected (NotDetected) Parainfluenza 1 (PCR) Not Detected (NotDetected) Parainfluenza 2 (PCR) Not Detected (NotDetected) Parainfluenza 3 (PCR) Not Detected (NotDetected) Parainfluenza 4 (PCR) Not Detected (NotDetected) RSV (PCR) Not Detected (NotDetected) Entero/Rhino (PCR) Not Detected (NotDetected) Administered Medications Buprenorphine HCl (Buprenorphine Hcl 8 Mg Subl) 16 mg SL QPM REINA Stop: 12/06/23 20:59 Last Admin: 11/06/23 21:24 Dose: 16 mg Documented By: DM Gabapentin (Gabapentin 800 Mg Tab) 800 mg PO TID REINA Stop: 12/06/23 20:59 Last Admin: 11/06/23 21:44 Dose: 800 mg Documented By: DM Sodium Chloride (Nss) 1,000 mls @ 100 mls/hr IV .Q10H REINA Stop: 12/06/23 19:44 Last Admin: 11/06/23 20:53 Dose: 100 mls/hr Documented By: DM Lactulose (Lactulose Syrup 20 Gm/30 Ml Udc) 20 gm PO TID REINA Stop: 12/06/23 20:59 Last Admin: 11/06/23 21:44 Dose: 20 gm Documented By: DM Miscellaneous (Carbohydrates For Hypoglycemia ) 15 - 30 gm PO UD PRN PRN Reason: Hypoglycemia Protocol Stop: 12/06/23 19:39 Last Admin: 11/06/23 21:12 Dose: 15 gm Documented By: DM Discontinued Medications Sodium Chloride (Nss) 500 mls @ 999 mls/hr IV .Q31M STA Stop: 11/06/23 13:29 Last Infusion: 11/06/23 14:09 Dose: Infused Documented By: Admin: 11/06/23 13:28 Dose: 999 mls/hr Documented By: JOSE ROBERTO Sodium Chloride (Nss) 1,000 mls @ 999 mls/hr IV .Q1H1M ONE Stop: 11/06/23 16:13 Last Infusion: 11/06/23 19:30 Dose: Infused Documented By: Admin: 11/06/23 15:33 Dose: 999 mls/hr Documented By: HE Ceftriaxone Sodium (Rocephin) 2,000 mg in 50 mls @ 100 mls/hr IV NOW STA Stop: 11/06/23 15:59 Last Infusion: 11/06/23 17:23 Dose: Infused Documented By: Admin: 11/06/23 16:28 Dose: 100 mls/hr Documented By: HE Vancomycin HCl 2,500 mg/ (Sodium Chloride) 550 mls @ 200 mls/hr IV NOW ONE Stop: 11/06/23 18:14 Last Infusion: 11/06/23 20:28 Dose: Infused Documented By: Admin: 11/06/23 17:03 Dose: 200 mls/hr Documented By: LILIAM Magnesium Sulfate/Dextrose (Magnesium Sulfate / D5w) 1 gm in 100 mls @ 100 mls/hr IV NOW STA Stop: 11/06/23 16:34 Last Infusion: 11/06/23 18:19 Dose: Infused Documented By: Admin: 11/06/23 17:02 Dose: 100 mls/hr Documented By: LILIAM Metronidazole (Flagyl) 500 mg in 100 mls @ 100 mls/hr IV NOW STA; Protocol Stop: 11/06/23 19:38 Last Infusion: 11/06/23 20:28 Dose: Infused Documented By: Admin: 11/06/23 19:27 Dose: 100 mls/hr Documented By: DAMIAN Lidocaine HCl (Lidocaine 1% Local 20 Ml Vial) 20 ml INFIL NOW ONE Stop: 11/06/23 17:34 Last Admin: 11/06/23 19:12 Dose: 20 ml Documented By: REC Imaging Data Radiologist's Impression: Chest X-Ray 11/06/23 12:59 XR chest 1V portable HISTORY: 62 years-old Male Chest pain, nonspecific COMPARISON: 05/30/2023 TECHNIQUE: AP view of the chest FINDINGS: Cardiac silhouette is enlarged. Pulmonary vascular congestion. Trace right and small left pleural effusions with left basilar prominent consolidation. No pneumothorax. Bones appear grossly intact. IMPRESSION: 1. Cardiomegaly with pulmonary vascular congestion. 2. Left greater than right pleural effusions. 3. Mild left basilar consolidation may represent atelectasis versus pneumonia. ACT 112: Negative or not required by law. The above report was generated using voice recognition software. It may contain grammatical, syntax or spelling errors. Electronically signed by: aRmesh Hess M.D. 11/06/2023 1:54 PM Abdomen/Pelvis CT 11/06/23 15:34 CT SCAN OF THE ABDOMEN AND PELVIS WITHOUT IV CONTRAST CLINICAL HISTORY: Sepsis. Cirrhosis. Generalized abdominal pain. COMPARISON STUDY: Abdominal CT dated 07/08/2022. TECHNIQUE: CT scan of the abdomen and pelvis is performed from the lung bases to the proximal femora. Images are reviewed in the axial, sagittal, and coronal planes. IV contrast was not administered for this examination as per the referring clinician. Note that the examination was performed in significantly suboptimal fashion without oral and IV contrast. Examination is also degraded by motion artifact, as well as by streak artifact from the arms which could not be abdomen. A dose lowering technique was utilized adhering to the principles of ALARA. FINDINGS: Lung bases: The heart is top normal in size noting trace pericardial effusion. The coronary arteries are densely calcified. Images and this change is observed. There is airspace consolidation at the left lung base and a trace left pleural effusion. Scarring/atelectasis is noted at the right lung base. A 3 cm focus of nodular consolidation is seen in the right upper lobe on image #4. Esophageal varices are noted. There is a small hiatal hernia. Liver: The unenhanced liver is cirrhotic in morphology and heterogeneous in attenuation. There is no intrahepatic biliary ductal dilatation. Gallbladder: The gallbladder is distended and contains calcified gallstones. There is no convincing CT evidence of acute cholecystitis. Spleen: The spleen is enlarged, measuring 20 cm in length. Pancreas: The unenhanced pancreas is atrophic. Calcifications indicate chronic pancreatitis. Adrenal glands: Unremarkable. Kidneys: The unenhanced kidneys are normal in size and without hydronephrosis. Bilateral nonobstructing renal calculi measuring up to 9 mm. No ureteral stone is seen. There is no evidence of contour deforming renal mass lesion. Abdominal vasculature: There is moderate to advanced atherosclerotic calcification and mild ectasia of the abdominal aorta. Bowel: There is no bowel obstruction. Residual enteric contrast is suggested in the colon. The appendix is well-visualized and normal. Peritoneum: There is a moderate to large volume of abdominopelvic ascites. No intraperitoneal free air is identified. There is a fat and fluid containing umbilical hernia. Lymphadenopathy: None. Pelvic viscera: There is a punctate bladder calculus. The bladder is distended but otherwise normal in appearance. The prostate gland is diminutive and heterogeneous. Skeletal structures: The skeletal structures are osteopenic. Chronic compression deformities of L1, L2, and L4 are again noted. There is moderate lumbosacral spondylosis. No lytic or blastic lesions are seen. There are chronic/healed bilateral rib fractures. Soft tissues: There is body wall edema. Gynecomastia is observed. IMPRESSION: 1. Significantly suboptimal examination without oral and IV contrast. There is also streak and motion artifact. 2. There is left basilar consolidation and a small left pleural effusion. Correlate clinically for evidence of pneumonia/aspiration pneumonitis. Radiographic follow-up to resolution is recommended. 3. There is a 3 cm nodular focus of consolidation in right upper lobe. This also likely representing pneumonia. A follow-up chest CT in 3 months time is recommended to document resolution as a pulmonary neoplasm could potentially appear similar. 4. Emphysema. 5. The liver is cirrhotic in morphology and heterogeneous in attenuation. 6. A moderate to large volume of ascites, splenomegaly, and esophageal varices indicate portal hypertension. 7. Bilateral nephrolithiasis. 8. The gallbladder is distended and contains calcified gallstones. There is no convincing CT evidence of acute cholecystitis. If there is clinical/laboratory concern for cholecystitis an ultrasound or nuclear hepatobiliary biliary scan could be considered. 9. There is evidence of chronic pancreatitis. 10. Additional findings as above.. ACT 112: Positive. There are findings on this exam that require communication between the performing entity and the patient following Patient Test Result Information Act ([place] Act 112) guidelines. Electronically signed by: Adriano Sparks M.D. 11/06/2023 5:[address] 11/06/23 15:34 CT chest diagnostic wo con CLINICAL HISTORY: sepsis, cough, cp, sob TECHNIQUE: Multidetector row helical CT of the chest was performed. Coronal and sagittal reformations were obtained. Automated dose lowering techniques and/or adjustment according to patient size were utilized for this exam. Comparison: Comparison is made to CT chest 06/02/2021 FINDINGS: Lungs and pleura: Atelectasis is seen in the left lung. Superimposed consolidation cannot be excluded. There are scattered foci of groundglass and consolidation in the bilateral upper lobes. Emphysema is seen. Heart and pericardium: Heart size is normal. No pericardial effusion. Vessels: Ascending aortic aneurysm measures 43 mm. Moderate atherosclerotic disease is seen. Mediastinum and madelyn: Unremarkable. Chest wall and lower neck: Small thyroid nodules are noted which do not require follow-up by ACR criteria. Gynecomastia is seen. Abdomen: For findings below the diaphragm, please refer to CT of the abdomen dated the same. Bones: Degenerative changes of the thoracic spine. Subacute appearing left lower posterior rib fractures are seen. IMPRESSION: 1. Findings compatible with pneumonia with atelectasis at the left lung as well. 2. Emphysema. 3. Ascending aortic aneurysm as above. 4. Subacute appearing left rib fractures. ACT 112: Negative or not required by law. Electronically signed by: Gerson Betts M.D. 11/06/2023 4:[address] 11/06/23 15:36 CT SCAN OF THE BRAIN WITHOUT IV CONTRAST CLINICAL HISTORY: Change in mental status. Sepsis. COMPARISON STUDY: CT of the brain dated 05/30/2023. TECHNIQUE: Unenhanced axial CT scan of the brain is performed from the vertex to the skull base. A dose lowering technique was utilized adhering to the principles of ALARA. CT DOSE: 3590.64 mGy.cm FINDINGS: Brain parenchyma: There is age-related involutional change noting minimal microangiopathic disease. There is no hemorrhage, mass effect, or evidence of acute territorial ischemia by CT criteria. Hamilton-white matter differentiation is preserved. No extra-axial fluid collection is seen. Ventricles, sulci, cisterns: Prominent secondary to involutional change. Intracranial vasculature: There is atherosclerotic calcification of the cavernous carotid and vertebral arteries. Calvarium: Unremarkable. Sinuses and mastoids: There are opacified bilateral ethmoid sinuses. The remaining visualized paranasal sinuses are clear. There is trace right mastoid effusion. The left mastoid air cells are well pneumatized. Cerumen is noted in the left external auditory canal. Orbits: The bony orbits are grossly intact. IMPRESSION: There is no hemorrhage, mass effect, or evidence of acute territorial ischemia by CT criteria. ACT 112: Negative or not required by law. Electronically signed by: Adriano Sparks M.D. 11/06/2023 4:38 PM Discharge Plan Visit Data Chief Complaint: Diarrhea Stated Complaint: R SIDE PAIN ED Provider: James Ashby Discharge Problem: Sepsis, Pneumonia, Acute renal failure, Cirrhosis, Hypomagnesemia, Left leg cellulitis, Pancytopenia, Hypoalbuminemia Patient Disposition: Admitted As Inpatient Discharge Instructions Interventions: ED Discharge Assessment Last Done: 11/06/23 20:26 Discharge Problem: Sepsis Qualifiers: Sepsis type: sepsis due to unspecified organism Sepsis acute organ dysfunction status: with acute organ dysfunction Severe sepsis acute organ dysfunction type: acute renal failure Acute renal failure type: unspecified Severe sepsis shock status: without septic shock Qualified Code(s): A41.9 - Sepsis, unspecified organism Pneumonia Qualifiers: Pneumonia type: due to unspecified organism Laterality: bilateral Lung location: lower lobe of lung Qualified Code(s): J18.9 - Pneumonia, unspecified organism Acute renal failure Qualifiers: Acute renal failure type: unspecified Qualified Code(s): N17.9 - Acute kidney failure, unspecified Cirrhosis Qualifiers: Hepatic cirrhosis type: unspecified hepatic cirrhosis Ascites presence: with ascites Qualified Code(s): K74.60 - Unspecified cirrhosis of liver
[2023-11-06 13:28] LABS: Basophils # (auto) 0.03 K/uL (0.00-0.20); Basophils % (auto) 0.2 %; Eosinophils % (auto) 0.6 %; Hematocrit (blood only) 32.5 % (42.0-52.0); Hemoglobin 11.1 g/dl (14.0-18.0); Immature Granulocytes # (auto) 0.18 K/uL (0.01-0.20); Lymphocytes # (auto) 1.46 K/uL (1.20-3.40); Lymphocytes % (auto) 8.3 %; Mean Corpuscular Hgb Conc 34.2 g/dL (32.0-36.0); Mean Corpuscular Volume 90.8 fL (80.0-100.0); Mean Platelet Volume 11.6 fL (9.4-12.4); Monocytes # (auto) 1.08 K/uL (0.11-0.59); Monocytes % (auto) 6.1 %; Neutrophils # (auto) 14.81 K/uL (1.40-6.50); Neutrophils % (auto) 83.8 %; Platelet Count 54 K/uL (130-400); RDW Coefficient of Variation 17.7 % (11.5-14.5); RDW Standard Deviation 59.1 fL (36.4-46.3); Red Blood Count 3.58 M/uL (4.70-6.10); White Blood Count 17.66 K/ul (4.8-10.8)
[2023-11-06] MEDS: SODIUM CHLORIDE 0.9% 500 ML IV STA (13:28)
[2023-11-06 13:46] LABS: Albumin Globulin Ratio 0.6 (0.9-2); Albumin Level 2.3 gm/dl (3.4-5.0); BUN Creatinine Ratio 23.3 (10-20); Bilirubin Direct 1.8 mg/dl (0-0.2); Bilirubin,Total 3.8 mg/dl (0.2-1.0); Calcium 7.9 mg/dl (8.6-10.3); Creatinine Clr Calc Pharmacy 51.4 ml/min; Est GFR (African American) 43.7 ml/min; Est GFR (Non-African American) 37.7 ml/min; Globulin 3.8 gm/dl (2.5-4.0); Magnesium 1.6 mg/dl (1.7-2.4); Potassium 4.8 mmol/L (3.5-5.1); Total Protein 6.1 gm/dl (6.0-8.3)
[2023-11-06 13:47] LABS: Troponin I High Sensitivity 9.8 pg/ml (0-20)
[2023-11-06 13:49] LABS: INR 2.1 (0.9-1.1); Prothrombin Time 20.9 Seconds (9.0-12.0)
--- NOTE | 2023-11-06 13:56 | XRay Report ---
XR chest 1V portable HISTORY: 62 years-old Male Chest pain, nonspecific COMPARISON: 05/30/2023 TECHNIQUE: AP view of the chest FINDINGS: Cardiac silhouette is enlarged. Pulmonary vascular congestion. Trace right and small left pleural eff usions with left basilar prominent consolidation. No pneumothorax. Bones appear grossly intact. IMPRESSION: 1. Cardiomegaly with pulmonary vascular congestion. 2. Left greater than right pleural effusions. 3. Mild left basilar consolidation may represent atelectasis versus pneumonia. ACT 112: Negative or not required by law. The above report was generated using voice recognition software. It may contain grammatical, syntax o r spelling errors. Electronically signed by: Ramseh Hess M.D. 11/06/2023 1:54 PM
[2023-11-06] MEDS ORDERED: VANCOMYCIN CONSULT ACTIVE PRN ×2 (15:30→19:29)
[2023-11-06] MEDS: SODIUM CHLORIDE 0.9% 1,000 ML IV ONE (15:33)
--- NOTE | 2023-11-06 15:48 | Electrocardiogram Report ---
Test Reason : Blood Pressure : / mmHG Vent. Rate : 072 BPM Atrial Rate : 072 BPM P-R Int : 176 ms QRS Dur : 088 ms QT Int : 410 ms P-R-T Axes : 041 -13 029 degrees QTc Int : 448 ms Normal sinus rhythm Low voltage QRS Borderline ECG When compared with ECG of 30-MAY-2023 18:25, No significant change was found Confirmed by James Retana ([id number]) on 11/06/2023 3:47:44 PM Referred By: REFERRED SELF Confirmed By:James Retana
[2023-11-06] MEDS: cefTRIAXone SODIUM 2,000 MG/50 ML BAG IV STA (16:28)
--- NOTE | 2023-11-06 16:39 | CT Scan Report ---
CT SCAN OF THE BRAIN WITHOUT IV CONTRAST CLINICAL HISTORY: Change in mental status. Sepsis. COMPARISON STUDY: CT of the brain dated 05/30/2023. TECHNIQUE: Unenhanced axial CT scan of the brain is performed from the vertex to the skull base. A d ose lowering technique was utilized adhering to the principles of ALARA. CT DOSE: 3590.64 mGy.cm FINDINGS: Brain parenchyma: There is age-related involutional change noting minimal microangiopathic disease. T here is no hemorrhage, mass effect, or evidence of acute territorial ischemia by CT criteria. Hamilton-wh ite matter differentiation is preserved. No extra-axial fluid collection is seen. Ventricles, sulci, cisterns: Prominent secondary to involutional change. Intracranial vasculature: There is atherosclerotic calcification of the cavernous carotid and vertebr al arteries. Calvarium: Unremarkable. Sinuses and mastoids: There are opacified bilateral ethmoid sinuses. The remaining visualized paranas al sinuses are clear. There is trace right mastoid effusion. The left mastoid air cells are well pneu matized. Cerumen is noted in the left external auditory canal. Orbits: The bony orbits are grossly intact. IMPRESSION: There is no hemorrhage, mass effect, or evidence of acute territorial ischemia by CT [place]. ACT 112: Negative or not required by law. Electronically signed by: Adriano Spraks M.D. 11/06/2023 4:38 PM
--- NOTE | 2023-11-06 16:44 | CT Scan Report ---
CT chest diagnostic wo con CLINICAL HISTORY: sepsis, cough, cp, sob TECHNIQUE: Multidetector row helical CT of the chest was performed. Coronal and sagittal reformations were obtained. Automated dose lowering techniques and/or adjustment according to patient size were u tilized for this exam. Comparison: Comparison is made to CT chest 06/02/2021 FINDINGS: Lungs and pleura: Atelectasis is seen in the left lung. Superimposed consolidation cannot be excluded . There are scattered foci of groundglass and consolidation in the bilateral upper lobes. Emphysema i s seen. Heart and pericardium: Heart size is normal. No pericardial effusion. Vessels: Ascending aortic aneurysm measures 43 mm. Moderate atherosclerotic disease is seen. Mediastinum and madelyn: Unremarkable. Chest wall and lower neck: Small thyroid nodules are noted which do not require follow-up by ACR [place]. Gynecomastia is seen. Abdomen: For findings below the diaphragm, please refer to CT of the abdomen dated the same. Bones: Degenerative changes of the thoracic spine. Subacute appearing left lower posterior rib fractu res are seen. IMPRESSION: 1. Findings compatible with pneumonia with atelectasis at the left lung as well. 2. Emphysema. 3. Ascending aortic aneurysm as above. 4. Subacute appearing left rib fractures. ACT 112: Negative or not required by law. Electronically signed by: Gerson Betts M.D. 11/06/2023 4:42 PM
[2023-11-06 16:47] LABS: Adenovirus PCR Not Detected (NotDetected); Bordetella parapertussis PCR Not Detected (NotDetected); Bordetella pertussis PCR Not Detected (NotDetected); Chlamydia pneumoniae PCR Not Detected (NotDetected); Coronavirus 229E PCR Not Detected (NotDetected); Coronavirus CoV-2 (COVID19)PCR Not Detected (NotDetected); Coronavirus HKU1 PCR Not Detected (NotDetected); Coronavirus NL63 PCR Not Detected (NotDetected); Coronavirus OC43PCR Not Detected (NotDetected); Human Metapneumovirus PCR Not Detected (NotDetected); Influenza A PCR Not Detected (NotDetected); Influenza B PCR Not Detected (NotDetected); Mycoplasma pneumoniae PCR Not Detected (NotDetected); Parainfluenza Virus 1 PCR Not Detected (NotDetected); Parainfluenza Virus 2 PCR Not Detected (NotDetected); Parainfluenza Virus 3 PCR Not Detected (NotDetected); Parainfluenza Virus 4 PCR Not Detected (NotDetected); Respiratory Syncytial VirusPCR Not Detected (NotDetected); Rhinovirus/Enterovirus PCR Not Detected (NotDetected)
[2023-11-06] MEDS: MAGNESIUM SULFATE / D5W 1 GM/100 ML BAG IV STA (17:02)
[2023-11-06] MEDS: VANCOMYCIN HCL 2,500 MG in SODIUM CHLORIDE 0.9% 500 ML IV ONE (17:03)
--- NOTE | 2023-11-06 17:09 | CT Scan Report ---
CT SCAN OF THE ABDOMEN AND PELVIS WITHOUT IV CONTRAST CLINICAL HISTORY: Sepsis. Cirrhosis. Generalized abdominal pain. COMPARISON STUDY: Abdominal CT dated 07/08/2022. TECHNIQUE: CT scan of the abdomen and pelvis is performed from the lung bases to the proximal femora. Images are reviewed in the axial, sagittal, and coronal planes. IV contrast was not administered for this examination as per the referring clinician. Note that the examination was performed in signific antly suboptimal fashion without oral and IV contrast. Examination is also degraded by motion artifac t, as well as by streak artifact from the arms which could not be abdomen. A dose lowering technique was utilized adhering to the principles of ALARA. FINDINGS: Lung bases: The heart is top normal in size noting trace pericardial effusion. The coronary arteries are densely calcified. Images and this change is observed. There is airspace consolidation at the lef t lung base and a trace left pleural effusion. Scarring/atelectasis is noted at the right lung base. A 3 cm focus of nodular consolidation is seen in the right upper lobe on image #4. Esophageal varices are noted. There is a small hiatal hernia. Liver: The unenhanced liver is cirrhotic in morphology and heterogeneous in attenuation. There is no intrahepatic biliary ductal dilatation. Gallbladder: The gallbladder is distended and contains calcified gallstones. There is no convincing C T evidence of acute cholecystitis. Spleen: The spleen is enlarged, measuring 20 cm in length. Pancreas: The unenhanced pancreas is atrophic. Calcifications indicate chronic pancreatitis. Adrenal glands: Unremarkable. Kidneys: The unenhanced kidneys are normal in size and without hydronephrosis. Bilateral nonobstructi ng renal calculi measuring up to 9 mm. No ureteral stone is seen. There is no evidence of contour def orming renal mass lesion. Abdominal vasculature: There is moderate to advanced atherosclerotic calcification and mild ectasia o f the abdominal aorta. Bowel: There is no bowel obstruction. Residual enteric contrast is suggested in the colon. The append ix is well-visualized and normal. Peritoneum: There is a moderate to large volume of abdominopelvic ascites. No intraperitoneal free ai r is identified. There is a fat and fluid containing umbilical hernia. Lymphadenopathy: None. Pelvic viscera: There is a punctate bladder calculus. The bladder is distended but otherwise normal i n appearance. The prostate gland is diminutive and heterogeneous. Skeletal structures: The skeletal structures are osteopenic. Chronic compression deformities of L1, L 2, and L4 are again noted. There is moderate lumbosacral spondylosis. No lytic or blastic lesions are seen. There are chronic/healed bilateral rib fractures. Soft tissues: There is body wall edema. Gynecomastia is observed. IMPRESSION: 1. Significantly suboptimal examination without oral and IV contrast. There is also streak and motion artifact. 2. There is left basilar consolidation and a small left pleural effusion. Correlate clinically for ev idence of pneumonia/aspiration pneumonitis. Radiographic follow-up to resolution is recommended. 3. There is a 3 cm nodular focus of consolidation in right upper lobe. This also likely representing pneumonia. A follow-up chest CT in 3 months time is recommended to document resolution as a pulmonary neoplasm could potentially appear similar. 4. Emphysema. 5. The liver is cirrhotic in morphology and heterogeneous in attenuation. 6. A moderate to large volume of ascites, splenomegaly, and esophageal varices indicate portal hypert ension. 7. Bilateral nephrolithiasis. 8. The gallbladder is distended and contains calcified gallstones. There is no convincing CT evidence of acute cholecystitis. If there is clinical/laboratory concern for cholecystitis an ultrasound or n uclear hepatobiliary biliary scan could be considered. 9. There is evidence of chronic pancreatitis. 10. Additional findings as above.. ACT 112: Positive. There are findings on this exam that require communication between the performing entity and the patient following Patient Test Result Information Act ([place] Act 112) guidelines. Electronically signed by: Adriano Sparks M.D. 11/06/2023 5:08 PM
--- NOTE | 2023-11-06 18:56 | History & Physical Report ---
Date of Service November 06, 2023 Assessment & Plan (1) Sepsis: Plan: Generalized weakness and ambulatory dysfunction x 2 days Leukocytosis of 17.66 with neutrophil predominance; febrile at 38.6 C in the ED Lactate elevated at 2.6 on arrival, repeat pending Procalcitonin elevated at 11.40 IVF bolus deferred in the setting of significant ascites Monitor for hypotension Vancomycin, metronidazole, and Rocephin Follow-up blood cultures Acetaminophen 500 mg p.o. q12h for pain/fever; will caution overuse with cirrhosis A.m. CBC, BMP, mag (2) Abdominal ascites: Plan: Paracentesis performed in the ED with removal of 1L IR consulted for ultrasound-guided paracentesis on 11/06 (3) Recurrent falls: Plan: Patient reports he has fallen multiple times in the past few days and is sometimes down for hours at a time Head CT revealed no acute findings PT/OT evaluations appreciated Fall precautions Total CK level ordered, pending to assess for rhabdomyolysis (4) Left leg cellulitis: Plan: Left lower extremity Doppler ordered, pending ESR/CRP ordered, pending Antibiotics (as above) Daily wound care for superficial abrasion on the left lateral extremity (5) Aspiration pneumonia: Plan: Chest CT revealed findings compatible with pneumonia; will cover for aspiration pneumonia in the setting of recent vomiting Antibiotics (as above) (6) Chronic hypoxic respiratory failure: Plan: Patient is on supplemental oxygen 2.5L NC at baseline BioFire negative Continuous pulse oximetry Supplemental oxygen as needed to maintain SpO2 greater than 94% (7) Diabetes: Plan: Last A1c at 4.9% on 05/31/2023 Glucose 73 on admission Patient reports that he is supposed to be on 80 units Lantus QAM, but has not been consistent with taking Will defer insulin at this time given low glucose despite no insulin, and clear liquid diet Communication order to reach out to provider if glucose >180mg/dL Monitor for hypoglycemia Clear liquid diet, and advance to T2DM diet once tolerated BSG ACHS Adjust regimen as needed AM A1c (8) Hypomagnesemia: Plan: Mag 1.6 on arrival Magnesium sulfate 1 g IV Follow a.m. mag (9) Chronic hepatitis C with cirrhosis: Plan: Not currently being treated for hepatitis (10) Recovering alcoholic: (11) Bipolar disorder: Plan Disposition: Admit to PCU telemetry Full code Clear liquid diet for now VTE PPx: Will hold chemical DVT PPx in the setting of paracentesis; will hold mechanical DVT PPx in setting of abrasion on left lower extremity History of Present Illness Chief Complaint: Diarrhea, lethargy, recurrent falls Primary Care Provider: SHERINE Mcmahon Chuck is a 62-year-old male with PMH of chronic hepatitis C with cirrhosis, metabolic encephalopathy, HTN, anxiety, GERD, COPD, gastroparesis, prior alcoholism, opioid use disorder, and bipolar disorder. He presented for generalized body pain and ambulatory dysfunction x 2-3 days. He has had multiple falls at home's over that period of time. No LOC. No head strike. Patient reports that he is usually able to get himself up after crawling for a while, but can be on the ground for minutes to hours at a time. He does have a history of paracentesis with the last one being 2 weeks ago. Patient is a current tobacco cigarette smoker; 1/2 PPD. He is a former alcoholic, but is currently in recovery and denies alcohol use within the past year; he also is a former heroin user, but has not had heroin in the past 2 years. He denies all other forms of recreational drug use at this time. At time of admission, he does endorse bilateral flank pain; 06/30. Patient did not take any of his regular morning medications today, including his insulin; he reports he is supposed to be taking 80u Lantus QAM. Patient reports poor compliance with taking lactulose at home; he is currently prescribed lactulose TID, but may only take it once per day, as he does not tolerate it well (diarrhea). No PMH of DVT/PE. He is on continuous oxygen supplementation 2.5L NC at baseline. He is also supposed to be on CPAP, but is noncompliant at home. Patient is febrile at time of admission at 38.6 C. ED course: Metronidazole 500 mg IV Rocephin 2000 mg IV Vancomycin 2500 mg IV NSS 1500 mL IV Magnesium sulfate 1 g IV ROS: Patient endorses generalized weakness, abdominal filling, bilateral flank pain, night-sweats, lightheadedness when standing, nausea, vomiting, and diarrhea (which patient attributes to lactulose use), and ambulatory dysfunction. Patient denies fever, chills, chest pain, SOB, cough, abdominal pain at present, or blood in the urine or stool. Allergies Allergy/AdvReac Type Severity Reaction Status Date / Time No Known Allergies Allergy Verified 11/06/23 17:21 Home Medications Medication Instructions Recorded Confirmed Type insulin glargine 100 unit/mL (3 0 unit subcut UD 08/20/20 11/06/23 History mL) subcutaneous pen (Lantus Solostar U-100 Insulin) insulin lispro 100 unit/mL 0 unit subcut UD 08/20/20 11/06/23 History subcutaneous solution (Humalog U-100 Insulin) buprenorphine HCl 8 mg sublingual 8 mg sublingual QAM 03/30/22 11/06/23 History tablet lactulose 20 gram/30 mL oral 20 g (30 mL) PO TID #60 mL 04/21/22 11/06/23 Rx solution gabapentin 800 mg tablet 800 mg PO TID 06/12/22 11/06/23 History diclofenac sodium 1 % topical gel 4 g EXT QID PRN back pain #1 tube 07/18/22 11/06/23 Rx (Voltaren Arthritis Pain) omeprazole 40 mg capsule,delayed 40 mg PO QAM #30 caps 07/18/22 11/06/23 Rx release buprenorphine HCl 8 mg sublingual 16 mg sublingual QPM 04/27/23 11/06/23 History tablet fluoxetine 20 mg tablet 20 mg PO DAILY 11/06/23 11/06/23 History furosemide 20 mg tablet 20 mg PO .BID UD 11/06/23 11/06/23 History spironolactone 100 mg tablet 100 mg PO DAILY 11/06/23 11/06/23 History Past Med/Surg History Problem List (Updated 11/06/23 @ 20:13 by James Arzate PA-C) Diabetes Aspiration pneumonia Left leg cellulitis Chronic hypoxic respiratory failure Recurrent falls Sepsis Abdominal pain (Acute) Abdominal ascites (Acute) Acute hepatic encephalopathy (Acute) Urinary retention Alcoholism Confusion and disorientation Hepatic encephalopathy Thrombocytopenia Bipolar disorder Recovering alcoholic quit November 2019 > brief relapse Mar 2022, was hospitalized [facility], high ammonia levels, once DC'ed from hospital, no more alcohol Chronic hepatitis C with cirrhosis Alcohol intoxication (Acute) Lymphadenopathy (Acute) Urinary tract infection (Acute) Gastroparesis Encounter for pre-operative examination Esophageal dysphagia GERD (gastroesophageal reflux disease) COPD exacerbation (Acute) Pneumonitis Scrotal abscess Pancytopenia (Acute) Urinary frequency Nocturia Metabolic encephalopathy Overdose Urinary tract infection (Acute) Hyperammonemia Electrolyte abnormality Hyponatremia RODRIGO (acute kidney injury) Opioid use disorder Prolonged QT interval GERD (gastroesophageal reflux disease) RODRIGO (acute kidney injury) (Acute) Overdose (Acute) Hyperammonemia (Acute) Dehydration (Acute) Hypoxia Encephalopathy (Acute) Abdominal distension Acute hepatitis Hypokalemia COVID-19 Lower extremity edema Hypomagnesemia Hypoxia (Acute) Anasarca (Acute) Candidiasis of mouth and esophagus Colon cancer screening Anxiety Hepatitis C no treatment as of yet Hypertension Medical History Cellulitis Pulmonary edema Elevated lactic acid level Urinary retention Acute hyperkalemia Lumbar vertebral fracture 06/2022, fall at home, hospitalzied at [facility] for 2 weeks; no sx. History of recent hospitalization d/c from [place] 12/11/22 psychiatric reasons. Anxiety/depression. Controlled at current. Lyme borreliosis Elevated bilirubin Compression fracture of L4 vertebra Vitamin D deficiency Closed compression fracture of L1 vertebra Alcohol abuse, in remission Venous stasis dermatitis Cirrhosis Abdominal ascites Pancytopenia Type 2 diabetes mellitus History of heroin abuse quit 2017 Gastroparesis Nocturnal hypoxia per pt, prescribed home O2 @ 2 LPM qHS and PRN daily in past but unable to obtain as of late r/t financial struggles. admits to using sister's oxygen at night when able. current: 2.5 L oxygen HS. Dysphagia on occasion Fibromyalgia History of kidney stones GERD (gastroesophageal reflux disease) DM type 2 (diabetes mellitus, type 2) IDDM/no inuslin use over past 2 weeks/blood sugars have been running around 100 - pt monitors. 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 PTSD (post-traumatic stress disorder) History of migraine History of DVT (deep vein thrombosis) "few years ago" LLE -- unk etiology -- per pt, no treatment at time of dx Hyperlipidemia Sleep apnea non compliant with CPAP COPD (chronic obstructive pulmonary disease) rare res inh use Alcoholic cirrhosis of liver Rib fracture years ago, healed, no current fractures AAA (abdominal aortic aneurysm) per pt, last evaluated 6 mo ago [facility]? "around 5 cm" -->says was referred to vascular surgery but no appt as of yet Surgical History History of abdominal paracentesis S/P excisional debridement LLE History of colonoscopy History of ear surgery as a child History of tonsillectomy History of tooth extraction History of esophagogastroduodenoscopy (EGD) Family History Other No family history of adverse response to anesthesia No significant medical problems Social History Smoking Status: Current some day smoker Tobacco Type: Cigarettes Cigarettes Per Day: 1/2 pack; Second Hand Exposure: No; Do You Dip or Chew Tobacco: No; Hx Alcohol Use: Yes Alcohol type: other Hx Substance Use: Yes Last Used Substance: Unknown Last Used Substance Other:: denies use since 2017 Substance Use Type Other:: last used meth 2017 Preferred Language: Romansh Communication Ability: Effective Visual Impairment: Limited Creative Engagement Director Required: No Beliefs That Will Affect Care: None marital status: Single Current Living Situation: Alone Current Living Situation Comment: halfway apartments-independently How many Children do You have: 0 Feels Safe at Home: Yes Assistive Devices: Bedside Commode, Cane and Walker Review of Systems Review of Systems: See HPI above Physical Exam Physical Exam: General: no acute distress; lethargic; toxic appearing; cooperative; SpO2 98% on 2.5 L NC HEENT: normocephalic, atraumatic; no scleral icterus; PERRLA w/ EOMs intact; moist mucus membrane; vision and hearing grossly intact Neck: supple; no lymphadenopathy; trachea midline Skin: Jaundice; warm, dry without signs of tenting; no cyanosis CV: chest wall NTP; RRR; S1/S2 normal; no murmurs/rubs/gallops; pulses intact and symmetric at radial, DP, and PT Lungs: no acute respiratory distress; symmetrical chest wall expansion; clear breath sounds across all lung lambert w/o adventitious sounds; no wheezing ABD: Soft; significant ascites; TTP in all 4 quadrants, with additional pain at the left lower rib cage MSK: no tics or fasciculations; no edema noted in the LEs b/l; superficial abrasion along the left lateral leg; LLE is erythematous and warm to touch Neuro: A&Ox3; normal mood and affect; fluent speech; no focal deficits; sensation grossly intact in the LEs b/l Results & Data Results & Data Vital Signs (Past 12 Hours) Vital Signs Temp Pulse Pulse Resp BP BP Pulse Ox 11/06/23 18:44 64 16 114/66 96 11/06/23 17:32 66 11/06/23 17:00 66 16 120/65 94 11/06/23 15:00 68 18 127/74 94 11/06/23 13:13 71 22 93 11/06/23 13:13 38.6 C H 71 22 122/69 93 11/06/23 12:54 74 O2 Del Method O2 Flow Rate 11/06/23 18:44 Nasal Cannula 11/06/23 17:32 11/06/23 17:00 Nasal Cannula 2.5 11/06/23 15:00 Nasal Cannula 2.5 11/06/23 13:13 Nasal Cannula 2.5 11/06/23 13:13 Nasal Cannula 2.5 11/06/23 12:54 Laboratory Results Abnormal lab results 11/06/23 11/06/23 Range/Units 12:56 15:43 WBC 17.66 H (4.8-10.8) K/ul RBC 3.58 L (4.70-6.10) M/uL Hgb 11.1 L (14.0-18.0) g/dl Hct 32.5 L (42.0-52.0) % RDW Std Deviation 59.1 H (36.4-46.3) fL RDW Coeff of Nabeel 17.7 H (11.5-14.5) % Plt Count 54 L (130-400) K/uL Neut # (Auto) 14.81 H (1.40-6.50) K/uL [place] # (Auto) 1.08 H (0.11-0.59) K/uL PT 20.9 H (9.0-12.0) Seconds INR 2.1 H (0.9-1.1) Sodium 133 L (136-145) mmol/L BUN 44 H (6-23) mg/dl Creatinine 1.89 H (0.6-1.4) mg/dl BUN/Creatinine Ratio 23.3 H (10-20) Lactate 2.6 H* (0.4-2.0) mmol/L Calcium 7.9 L (8.6-10.3) mg/dl Magnesium 1.6 L (1.7-2.4) mg/dl Total Bilirubin 3.8 H (0.2-1.0) mg/dl Direct Bilirubin 1.8 H (0-0.2) mg/dl Albumin 2.3 L (3.4-5.0) gm/dl Albumin/Globulin Ratio 0.6 L (0.9-2) Lipase 10 L (11-82) U/L Procalcitonin 11.40 H (0-0.5) ng/ml Diagnostic Findings Chest X-Ray 11/06/23 12:59 XR chest 1V portable HISTORY: 62 years-old Male Chest pain, nonspecific COMPARISON: 05/30/2023 TECHNIQUE: AP view of the chest FINDINGS: Cardiac silhouette is enlarged. Pulmonary vascular congestion. Trace right and small left pleural effusions with left basilar prominent consolidation. No pneumothorax. Bones appear grossly intact. IMPRESSION: 1. Cardiomegaly with pulmonary vascular congestion. 2. Left greater than right pleural effusions. 3. Mild left basilar consolidation may represent atelectasis versus pneumonia. ACT 112: Negative or not required by law. The above report was generated using voice recognition software. It may contain grammatical, syntax or spelling errors. Electronically signed by: Ramesh Hess M.D. 11/06/2023 1:54 PM Abdomen/Pelvis CT 11/06/23 15:34 CT SCAN OF THE ABDOMEN AND PELVIS WITHOUT IV CONTRAST CLINICAL HISTORY: Sepsis. Cirrhosis. Generalized abdominal pain. COMPARISON STUDY: Abdominal CT dated 07/08/2022. TECHNIQUE: CT scan of the abdomen and pelvis is performed from the lung bases to the proximal femora. Images are reviewed in the axial, sagittal, and coronal planes. IV contrast was not administered for this examination as per the referri ng clinician. Note that the examination was performed in significantly suboptimal fashion without oral and IV contrast. Examination is also degraded by motion artifact, as well as by streak artifact from the arms which could not be abdomen. A dose lowering technique was utilized adhering to the principles of ALARA. FINDINGS: Lung bases: The heart is top normal in size noting trace pericardial effusion. The coronary arteries are densely calcified. Images and this change is observed. There is airspace consolidation at the left lung base and a trace left pleural effusion. Scarring/atelectasis is noted at the right lung base. A 3 cm focus of nodular consolidation is seen in the right upper lobe on image #4. Esophageal varices are noted. There is a small hiatal hernia. Liver: The unenhanced liver is cirrhotic in morphology and heterogeneous in attenuation. There is no intrahepatic biliary ductal dilatation. Gallbladder: The gallbladder is distended and contains calcified gallstones. There is no convincing CT evidence of acute cholecystitis. Spleen: The spleen is enlarged, measuring 20 cm in length. Pancreas: The unenhanced pancreas is atrophic. Calcifications indicate chronic pancreatitis. Adrenal glands: Unremarkable. Kidneys: The unenhanced kidneys are normal in size and without hydronephrosis. Bilateral nonobstructing renal calculi measuring up to 9 mm. No ureteral stone is seen. There is no evidence of contour deforming renal mass lesion. Abdominal vasculature: There is moderate to advanced atherosclerotic calcification and mild ectasia of the abdominal aorta. Bowel: There is no bowel obstruction. Residual enteric contrast is suggested in the colon. The appendix is well-visualized and normal. Peritoneum: There is a moderate to large volume of abdominopelvic ascites. No intraperitoneal free air is identified. There is a fat and fluid containing umbilical hernia. Lymphadenopathy: None. Pelvic viscera: There is a punctate bladder calculus. The bladder is distended but otherwise normal in appearance. The prostate gland is diminutive and heterogeneous. Skeletal structures: The skeletal structures are osteopenic. Chronic compression deformities of L1, L2, and L4 are again noted. There is moderate lumbosacral spondylosis. No lytic or blastic lesions are seen. There are chronic/healed bilateral rib fractures. Soft tissues: There is body wall edema. Gynecomastia is observed. IMPRESSION: 1. Significantly suboptimal examination without oral and IV contrast. There is also streak and motion artifact. 2. There is left basilar consolidation and a small left pleural effusion. Correlate clinically for evidence of pneumonia/aspiration pneumonitis. Radiographic follow-up to resolution is recommended. 3. There is a 3 cm nodular focus of consolidation in right upper lobe. This also likely representing pneumonia. A follow-up chest CT in 3 months time is recommended to document resolution as a pulmonary neoplasm could potentially appear similar. 4. Emphysema. 5. The liver is cirrhotic in morphology and heterogeneous in attenuation. 6. A moderate to large volume of ascites, splenomegaly, and esophageal varices indicate portal hypertension. 7. Bilateral nephrolithiasis. 8. The gallbladder is distended and contains calcified gallstones. There is no convincing CT evidence of acute cholecystitis. If there is clinical/laboratory concern for cholecystitis an ultrasound or nuclear hepatobiliary biliary scan could be considered. 9. There is evidence of chronic pancreatitis. 10. Additional findings as above.. ACT 112: Positive. There are findings on this exam that require communication between the performing entity and the patient following Patient Test Result Information Act ([place] Act 112) guidelines. Electronically signed by: Adriano Sparks M.D. 11/06/2023 5:[address] 11/06/23 15:34 CT chest diagnostic wo con CLINICAL HISTORY: sepsis, cough, cp, sob TECHNIQUE: Multidetector row helical CT of the chest was performed. Coronal and sagittal reformations were obtained. Automated dose lowering techniques and/or adjustment according to patient size were utilized for this exam. Comparison: Comparison is made to CT chest 06/02/2021 FINDINGS: Lungs and pleura: Atelectasis is seen in the left lung. Superimposed consolidation cannot be excluded. There are scattered foci of groundglass and consolidation in the bilateral upper lobes. Emphysema is seen. Heart and pericardium: Heart size is normal. No pericardial effusion. Vessels: Ascending aortic aneurysm measures 43 mm. Moderate atherosclerotic disease is seen. Mediastinum and madelyn: Unremarkable. Chest wall and lower neck: Small thyroid nodules are noted which do not require follow-up by ACR criteria. Gynecomastia is seen. Abdomen: For findings below the diaphragm, please refer to CT of the abdomen dated the same. Bones: Degenerative changes of the thoracic spine. Subacute appearing left lower posterior rib fractures are seen. IMPRESSION: 1. Findings compatible with pneumonia with atelectasis at the left lung as well. 2. Emphysema. 3. Ascending aortic aneurysm as above. 4. Subacute appearing left rib fractures. ACT 112: Negative or not required by law. Electronically signed by: Gerson Betts M.D. 11/06/2023 4:[address] 11/06/23 15:36 CT SCAN OF THE BRAIN WITHOUT IV CONTRAST CLINICAL HISTORY: Change in mental status. Sepsis. COMPARISON STUDY: CT of the brain dated 05/30/2023. TECHNIQUE: Unenhanced axial CT scan of the brain is performed from the vertex to the skull base. A dose lowering technique was utilized adhering to the principles of ALARA. CT DOSE: 3590.64 mGy.cm FINDINGS: Brain parenchyma: There is age-related involutional change noting minimal microangiopathic disease. There is no hemorrhage, mass effect, or evidence of acute territorial ischemia by CT criteria. Hamilton-white matter differentiation is preserved. No extra-axial fluid collection is seen. Ventricles, sulci, cisterns: Prominent secondary to involutional change. Intracranial vasculature: There is atherosclerotic calcification of the cavernous carotid and vertebral arteries. Calvarium: Unremarkable. Sinuses and mastoids: There are opacified bilateral ethmoid sinuses. The remaining visualized paranasal sinuses are clear. There is trace right mastoid effusion. The left mastoid air cells are well pneumatized. Cerumen is noted in the left external auditory canal. Orbits: The bony orbits are grossly intact. IMPRESSION: There is no hemorrhage, mass effect, or evidence of acute territorial ischemia by CT criteria. ACT 112: Negative or not required by law. Electronically signed by: Adriano Sparks M.D. 11/06/2023 4:38 PM ECG Additional Comments: ECG revealed NSR at 72 bpm; QTc 448 Code Status & VTE Plan Code Status Full code VTE Prophylaxis Plan VTE Prophylaxis will be ordered: Yes Supervising Physician Co-Signing Physician Notes I have personally seen, evaluated and examined the patient. I have also personally discussed the management of the patient with the resident physician/NOVA and I agree with the exam findings documented in the history and physical examination and the documented assessment and plan unless otherwise stated below. Brief Exam: In general this is a 62-year-old male who is chronically ill- appearing. He is alert and oriented x 3. He does interact appropriately. He is having some left flank pain possibly associated with his fractured ribs which appear to be subacute to chronic. He is status post paracentesis diagnostic x 1 L from the ER physician Dr. Ashby. Fluid was sent by ER for culture analysis to rule out SBP. I reviewed the procedure well. Patient has no specific complaints with exception of feeling weak and febrile with some nausea and vomiting over the last several days. He is quite debilitated at baseline with his cirrhosis. States he sees infectious disease at [facility], Dr. Enrrique Zapata. HEENT: Normocephalic atraumatic mucous membranes are quite dry. Neck no carotid bruits no JVD. Heart: Regular rate and rhythm at this time. I appreciate no caleb murmur. Lungs: Coarse bilaterally and rhonchorous. This is anteriorly laterally. Patient immediately postprocedure therefore was not set up for posterior auscultation. Abdomen: Distended positive ascites mild tenderness diffusely no rebound no peritoneal sign immediate abdominal exam equivocal due to his ascites. Extremities: Intact. Left lower extremity significant changes of cellulitis with weeping fluid with erythema and warmth touch and pain to touch. Will check a lower extremity venous duplex on this extremity. And treat for cellulitis. Neurologically: Patient is alert and oriented x 3 he is mentating well and conversing well. Assessment/plan: As discussed above. Continue broad-spectrum IV antibiotic therapy including vancomycin Flagyl and Rocephin for now. Blood cultures. Sputum cultures. Again patient had a diagnostic paracentesis tomorrow large- volume therapeutic paracentesis can be considered with interventional radiology. Please refer to orders for further planning. PG Care Time/CCT Total # of Minutes Spent Total Time Spent with Patient: Total time spent is greater than 50% in coordination of care (as documented) at patient's floor/unit and/or counseling patient: C[place] [address] INT INP/OBS CARE 3/75MIN Patient Type Established Medical Decision Making High Complexity Diagnoses Sepsis A41.9 Abdominal ascites R18.8 Recurrent falls R29.6 Left leg cellulitis L03.116 Aspiration pneumonia J69.0 Chronic hypoxic respiratory failure J96.11 Diabetes E11.9 Hypomagnesemia E83.42 Chronic hepatitis C with cirrhosis B18.2; K74.60 Recovering alcoholic F10.21 Bipolar disorder F31.9
[2023-11-06] MEDS: LIDOCAINE 1% LOCAL 20 ML VIAL INFIL ONE (19:12)
[2023-11-06] MEDS: metroNIDAZOLE 500 MG/100 ML BAG IV STA (19:27)
[2023-11-06] MEDS ORDERED: DEXTROSE 50% 50 ML SYRINGE IV PRN (19:40)
[2023-11-06] MEDS ORDERED: GLUCAGON FOR INJ 1 MG VIAL SQ PRN (19:40)
[2023-11-06] MEDS ORDERED: GLUCOSE 10 TAB/TUBE PO PRN (19:40)
[2023-11-06] MEDS ORDERED: GLUCOSE 40% GEL 15 GM TUBE PO PRN (19:40)
[2023-11-06 20:07] LABS: Albumin Peritoneal Fluid < 1.5 gm/dl
[2023-11-06 20:12] LABS: Total Protein Peritoneal Fluid < 3.0 gm/dl
[2023-11-06] MEDS: SODIUM CHLORIDE 0.9% 1,000 ML IV SCH (20:53)
[2023-11-06 21:06] LABS: Appearance Peritoneal Fluid Clear; Color Peritoneal Fluid Pale Yellow; Lymphocytes, Fluid 5 %; Mono,Macrophage,Mesothelial 31 %; Neutrophils, Fluid 64 %; RBC Peritoneal Fluid Auto < 2000 /uL; WBC Peritoneal Fluid Auto 166 /ul (0-300)
[2023-11-06] MEDS: CARBOHYDRATES FOR HYPOGLYCEMIA PO PRN (21:12)
[2023-11-06] MEDS: buprenorphine HCL 8 MG SUBL SL SCH (21:24)
[2023-11-06] MEDS: LACTULOSE SYRUP 20 GM/30 ML UDC PO SCH (21:44)
[2023-11-06] MEDS: GABAPENTIN 800 MG TAB PO SCH (21:44)
--- NOTE | 2023-11-06 22:12 | Ultrasound Report ---
Exam(s): US VENOUS LEFT LOWER EXTREMITY EXAM: US Duplex Left Lower Extremity Veins CLINICAL HISTORY: Reason for exam: DVT r/o. TECHNIQUE: Real-time duplex ultrasound scan of the left lower extremity veins integrating B-mode two-dimensional vascular structure, Doppler spectral analysis, color flow Doppler imaging and compression. COMPARISON: 07/16/2022. FINDINGS: Deep veins: Unremarkable. No DVT in the visualized common femoral, femoral, proximal deep femoral or popliteal veins. The veins demonstrate normal color flow, are normally compressible, with normal phasic flow and/or augmentation response. Superficial veins: Unremarkable. No thrombus in the visualized great saphenous vein. Soft tissues: There is nonspecific edema in the left calf region. No popliteal cyst. Lymph nodes: There are several lymph nodes visualized at the level of the left groin, nonspecific. IMPRESSION: No ultrasonographic evidence of deep venous thrombosis involving the left lower extremity. Electronically signed by: Emilee Chamorro MD 11/06/23 22:11 PM
[2023-11-06 22:30] LABS: Appearance Urine Clear (Clear); Bacteria Urine Automated None Seen (None Seen); Bilirubin Urine Negative (Negative); Blood Urine 1+ (Negative); Color Urine Yellow; Epithelial Cell Urine Auto 0-2 /hpf (0-2); Glucose Urine UA Negative (Negative); Ketones Urine Negative (Negative); Leukocyte Esterase Urine Negative (Negative); Nitrite Urine Negative (Negative); Protein Urine Negative (Negative); Specific Gravity Urine 1.014 (1.000-1.030); Urobilinogen Urine Negative (Negative); WBC Urine Automated 0-5 /hpf (0-5); pH Urine 5.5 (4.5-7.5)
[2023-11-06 23:05] LABS: C Reactive Protein 13.11 mg/dl (0-0.5)
[2023-11-07] MEDS: metroNIDAZOLE 500 MG/100 ML BAG IV SCH (03:04)
[2023-11-07 06:56] LABS: Basophils # (auto) 0.03 K/uL (0.00-0.20); Basophils % (auto) 0.3 %; Eosinophils # (auto) 0.23 K/uL (0.00-0.50); Eosinophils % (auto) 2.1 %; Hematocrit (blood only) 29.9 % (42.0-52.0); Hemoglobin 10.2 g/dl (14.0-18.0); Immature Granulocytes # (auto) 0.07 K/uL (0.01-0.20); Immature Granulocytes % (auto) 0.6 %; Lymphocytes % (auto) 13.6 %; Mean Corpuscular Hemoglobin 31.4 pg (25.0-34.0); Mean Corpuscular Hgb Conc 34.1 g/dL (32.0-36.0); Mean Platelet Volume 10.6 fL (9.4-12.4); Monocytes # (auto) 0.81 K/uL (0.11-0.59); Monocytes % (auto) 7.3 %; Neutrophils % (auto) 76.1 %; Platelet Count 38 K/uL (130-400); RDW Coefficient of Variation 17.5 % (11.5-14.5); RDW Standard Deviation 59.3 fL (36.4-46.3); Red Blood Count 3.25 M/uL (4.70-6.10); White Blood Count 11.04 K/ul (4.8-10.8)
[2023-11-07 07:12] LABS: Albumin Globulin Ratio 0.6 (0.9-2); Albumin Level 1.9 gm/dl (3.4-5.0); BUN Creatinine Ratio 27.5 (10-20); C Reactive Protein 12.09 mg/dl (0-0.5); Calcium 7.3 mg/dl (8.6-10.3); Creatinine Clr Calc Pharmacy 69.7 ml/min; Est GFR (African American) 63.9 ml/min; Est GFR (Non-African American) 55.2 ml/min; Globulin 3.3 gm/dl (2.5-4.0); Magnesium 1.6 mg/dl (1.7-2.4); Potassium 4.7 mmol/L (3.5-5.1); Total Protein 5.2 gm/dl (6.0-8.3)
[2023-11-07 08:13] LABS: Estimated Average Glucose 97 mg/dl
[2023-11-07] MEDS ORDERED: VANCOMYCIN HCL 1,500 MG in SODIUM CHLORIDE 0.9% 500 ML IV SCH (09:00)
[2023-11-07] MEDS: FLUoxetine HCL 20 MG CAP PO SCH (09:11)
[2023-11-07] MEDS: PANTOprazole 40 MG TAB PO SCH (09:11)
--- NOTE | 2023-11-07 09:11 | Pharmacy Report ---
Pharmacy PK ABX Note - Date of Service November 07, 2023 - Assessment and Plan Assessment 62 year old M receiving vancomycin, ceftriaxone, and metronidazole for treatment of sepsis secondary to unclear source (cellulitis, aspiration pneumonia, GI?). PMH includes chronic hepatitis C w/ cirrhosis, abdominal ascites, and type 2 diabetes. Pertinent microbiologic data includes: blood x 2 , sputum, and peritoneal fluid cultures pending. RODRIGO on presentation (SCr: 1.89 mg/dL -> improved this morning to 1.38 mg/dL), baseline SCr ~0.9 mg/dL Day # 2 of antimicrobial therapy. Plan Vancomycin * Loading dose: 2500 mg IV x 1 * Maintenance dose: 1000 mg IV every 12 hours * Regimen is predicted to achieve target AUC/GERMAIN of 400-600 mg/L.hr * Random level ordered for: 11/08/23 * Given resolving RODRIGO - will order early level for tomorrow morning to ensure adequate dosing Pharmacy will continue to follow and will adjust dose/frequency as necessary. Thank you. Pharmacy has transitioned to AUC monitoring for vancomycin. AUC/GERMAIN is the preferred PK/PD target and is associated with decreased risk of nephrotoxicity compared to traditional trough targets.
[2023-11-07] MEDS: VANCOMYCIN HCL 1,000 MG in SODIUM CHLORIDE 0.9% 250 ML IV SCH (09:12)
[2023-11-07] MEDS: buprenorphine HCL 8 MG SUBL SL SCH (09:15)
--- NOTE | 2023-11-07 13:46 | Hospitalist Progress Note ---
Date of Service November 07, 2023 Assessment & Plan (1) Sepsis: Plan: Admitted with leukocytosis, elevated procalcitonin and elevated lactate with a fever of 38.6 Source is likely from cellulitis and pneumonia Some improvement following IV fluid rehydration and IV antibiotics Currently on IV ceftriaxone metronidazole and vancomycin, will continue Continue to follow-up cultures. (2) Abdominal ascites: Plan: Paracentesis performed in the ED with removal of 1L IR consulted for ultrasound-guided paracentesis on 11/07 (3) RODRIGO (acute kidney injury): Plan: Most likely prerenal Now resolved (4) Recurrent falls: Plan: Patient reports he has fallen multiple times in the past few days and is sometimes down for hours at a time Head CT revealed no acute findings PT/OT evaluations appreciated Fall precautions Total CK level ordered, pending to assess for rhabdomyolysis (5) Left leg cellulitis: Plan: Left lower extremity Doppler ordered, pending ESR/CRP ordered, pending Antibiotics (as above) Daily wound care for superficial abrasion on the left lateral extremity (6) Aspiration pneumonia: Plan: Chest CT revealed findings compatible with pneumonia; will cover for aspiration pneumonia in the setting of recent vomiting Antibiotics (as above) (7) Chronic hypoxic respiratory failure: Plan: Patient is on supplemental oxygen 2.5L NC at baseline BioFire negative Continuous pulse oximetry Supplemental oxygen as needed to maintain SpO2 greater than 94% (8) Diabetes: Plan: Last A1c at 4.9% on 05/31/2023 Glucose 73 on admission Patient reports that he is supposed to be on 80 units Lantus QAM, but has not been consistent with taking Will defer insulin at this time given low glucose despite no insulin, and clear liquid diet Communication order to reach out to provider if glucose >180mg/dL Monitor for hypoglycemia Clear liquid diet, and advance to T2DM diet once tolerated BSG ACHS Adjust regimen as needed AM A1c (9) Cirrhosis: Plan: Most likely from alcohol abuse On lactulose at home, continue (10) Hypomagnesemia: Plan: Mag 1.6 on arrival Magnesium sulfate 1 g IV Follow a.m. mag (11) Chronic hepatitis C with cirrhosis: Plan: Not currently being treated for hepatitis (12) Recovering alcoholic: (13) Bipolar disorder: Plan Disposition: Admit to PCU telemetry Full code Clear liquid diet for now VTE PPx: Will hold chemical DVT PPx in the setting of paracentesis; will hold mechanical DVT PPx in setting of abrasion on left lower extremity Admission and Anticipated Discharge Date Admission Date: November 06, 2023 Results & Data Results & Data Vital Signs (Past 12 Hours) Vital Signs Temp Pulse Pulse Resp BP BP Pulse Ox 11/07/23 10:36 97.7 F 66 17 107/66 94 11/07/23 10:21 11/07/23 07:35 59 L 11/07/23 06:57 97.7 F 57 L 16 92/56 L 94 11/07/23 03:06 97.7 F 62 16 109/67 95 O2 Del Method O2 Flow Rate 11/07/23 10:36 Nasal Cannula 2 11/07/23 10:21 Nasal Cannula 2.5 11/07/23 07:35 11/07/23 06:57 Nasal Cannula 2 11/07/23 03:06 Nasal Cannula 2.5 PG Care Time/CCT Total # of Minutes Spent Total Time Spent with Patient: Total time spent is greater than 50% in coordination of care (as documented) at patient's floor/unit and/or counseling patient: Coding Level of Care Code 29403 SUB INP/OBS CARE 2/35MIN Diagnoses Sepsis A41.9 Abdominal ascites R18.8 RODRIGO (acute kidney injury) N17.9 Recurrent falls R29.6 Left leg cellulitis L03.116 Aspiration pneumonia J69.0 Chronic hypoxic respiratory failure J96.11 Diabetes E11.9 Cirrhosis K74.60; R18.8 Ascites presence: with ascites Hepatic cirrhosis type: unspecified hepatic cirrhosis Hypomagnesemia E83.42 Chronic hepatitis C with cirrhosis B18.2; K74.60 Recovering alcoholic F10.21 Bipolar disorder F31.9 Time Spent (min) 35 (9) Cirrhosis Ascites presence: with ascites Hepatic cirrhosis type: unspecified hepatic cirrhosis Qualified Code(s): K74.60 - Unspecified cirrhosis of liver; R18.8 - Other ascites
[2023-11-07] MEDS: cefTRIAXone SODIUM 2,000 MG/50 ML BAG IV SCH (19:08)
[2023-11-07] MEDS ORDERED: Nursing to Pharmacy Communication SCH (22:15)
[2023-11-08 05:36] LABS: Basophils # (auto) 0.05 K/uL (0.00-0.20); Basophils % (auto) 0.5 %; Eosinophils # (auto) 0.34 K/uL (0.00-0.50); Eosinophils % (auto) 3.4 %; Hematocrit (blood only) 29.2 % (42.0-52.0); Hemoglobin 10.1 g/dl (14.0-18.0); Immature Granulocytes # (auto) 0.07 K/uL (0.01-0.20); Immature Granulocytes % (auto) 0.7 %; Lymphocytes # (auto) 1.56 K/uL (1.20-3.40); Lymphocytes % (auto) 15.5 %; Mean Corpuscular Hemoglobin 31.5 pg (25.0-34.0); Mean Corpuscular Hgb Conc 34.6 g/dL (32.0-36.0); Mean Platelet Volume 10.7 fL (9.4-12.4); Monocytes # (auto) 0.88 K/uL (0.11-0.59); Monocytes % (auto) 8.8 %; Neutrophils # (auto) 7.15 K/uL (1.40-6.50); Neutrophils % (auto) 71.1 %; Platelet Count 41 K/uL (130-400); RDW Coefficient of Variation 17.2 % (11.5-14.5); RDW Standard Deviation 56.6 fL (36.4-46.3); Red Blood Count 3.21 M/uL (4.70-6.10); White Blood Count 10.05 K/ul (4.8-10.8)
[2023-11-08 05:54] LABS: Albumin Globulin Ratio 0.5 (0.9-2); Albumin Level 1.9 gm/dl (3.4-5.0); BUN Creatinine Ratio 23.5 (10-20); Calcium 7.1 mg/dl (8.6-10.3); Creatinine Clr Calc Pharmacy 84.4 ml/min; Est GFR (African American) 76.5 ml/min; Globulin 3.5 gm/dl (2.5-4.0); Magnesium 1.6 mg/dl (1.7-2.4); Potassium 4.7 mmol/L (3.5-5.1); Total Protein 5.4 gm/dl (6.0-8.3)
[2023-11-08] MEDS: FUROSEMIDE 20 MG TAB PO SCH (08:01)
[2023-11-08] MEDS: MAGNESIUM SULFATE / D5W 1 GM/100 ML BAG IV SCH (08:01)
--- NOTE | 2023-11-08 08:32 | Pharmacy Report ---
Pharmacy PK ABX Note - Date of Service November 08, 2023 - Assessment and Plan Assessment 62 year old M receiving vancomycin, ceftriaxone, and metronidazole for treatment of sepsis secondary to unclear source (cellulitis, aspiration pneumonia, GI?). Febrile on presentation, but has been afebrile since. Elevated procalcitonin and lactate on presentation as well. Leukocytosis improved 17 K -> 10 K. PMH includes chronic hepatitis C w/ cirrhosis, abdominal ascites, and type 2 diabetes. Pertinent microbiologic data includes: blood x 2 show no growth at 24 hours , peritoneal fluids show no growth, and sputum culture shows pin-point growth. RODRIGO on presentation (SCr: 1.89 mg/dL -> improved to 1.19 mg/dL now), baseline of ~0.9 mg/dL Day # 3 of antimicrobial therapy. Plan Vancomycin * Current regimen: 1000 mg IV every 12 hours * Random level obtained 11/08/23 resulted as 17.3 mcg/mL. This is predicted to achieve target AUC/GERMAIN of 400-600 mg/L.hr * Predicted AUC at steady state: 533 mg/L.hr * Continue 1000 mg IV every 12 hours * Will repeat level in the next 48-72 hours if therapy is continued and/or change in patient clinical status Pharmacy will continue to follow and will adjust dose/frequency as necessary. Thank you. Pharmacy has transitioned to AUC monitoring for vancomycin. AUC/GERMAIN is the preferred PK/PD target and is associated with decreased risk of nephrotoxicity compared to traditional trough targets.
--- NOTE | 2023-11-08 10:43 | Hospitalist Progress Note ---
Date of Service November 08, 2023 Assessment & Plan (1) Sepsis: Plan: Patient was Admitted with leukocytosis, elevated procalcitonin and elevated lactate with a fever of 38.6 Source is likely from cellulitis and pneumonia Some improvement following IV fluid rehydration and IV antibiotics Currently on IV ceftriaxone metronidazole and vancomycin, will continue Continue to follow-up cultures. (2) Aspiration pneumonia: Plan: Chest CT revealed findings compatible with pneumonia; Sputum culture growing staph aureus currently on Vanc, ceftriaxone and flagyl Await blood cultures (3) Abdominal ascites: Plan: Paracentesis performed in the ED with removal of 1L IR consulted for ultrasound-guided paracentesis on 11/07 (4) RODRIGO (acute kidney injury): Plan: Most likely prerenal Now resolved (5) Recurrent falls: Plan: Patient reports he has fallen multiple times in the past few days and is sometimes down for hours at a time Head CT revealed no acute findings PT/OT evaluations appreciated Fall precautions Total CK level ordered, pending to assess for rhabdomyolysis (6) Left leg cellulitis: Plan: Left lower extremity Doppler ordered, pending ESR/CRP ordered, pending Antibiotics (as above) Daily wound care for superficial abrasion on the left lateral extremity (7) Chronic hypoxic respiratory failure: Plan: Patient is on supplemental oxygen 2.5L NC at baseline BioFire negative Continuous pulse oximetry Supplemental oxygen as needed to maintain SpO2 greater than 94% (8) Diabetes: Plan: Last A1c at 4.9% on 05/31/2023 Glucose 73 on admission Patient reports that he is supposed to be on 80 units Lantus QAM, but has not been consistent with taking Will defer insulin at this time given low glucose despite no insulin, and clear liquid diet Communication order to reach out to provider if glucose >180mg/dL Monitor for hypoglycemia Clear liquid diet, and advance to T2DM diet once tolerated BSG ACHS Adjust regimen as needed AM A1c (9) Cirrhosis: Plan: Most likely from alcohol abuse On lactulose at home, continue (10) Hypomagnesemia: Plan: replace (11) Chronic hepatitis C with cirrhosis: Plan: Not currently being treated for hepatitis (12) Recovering alcoholic: (13) Bipolar disorder: Plan Disposition: continue to monitor, Full code Clear liquid diet for now VTE PPx: Will hold chemical DVT PPx in the setting of paracentesis; will hold mechanical DVT PPx in setting of abrasion on left lower extremity Admission and Anticipated Discharge Date Admission Date: November 06, 2023 Subjective patient seen and examined, sitting up in the edge of the bedd, tolerating diet Review of Systems Review of Systems: All systems reviewed are negative, apart from the ones contained in the history. Physical Exam Physical Exam: The patient is awake, alert and oriented 3, well developed and well nourished, normocephalic and atraumatic, lying in bed and in no acute distress. HEENT--PERRL, EOMI, mucous membranes and oropharynx mildly dry Neck--supple. No JVD. No bruits. Thyroid normal, trachea midline, no adenopathy. Heart--normal S1 and S2. No murmurs, rubs or gallops. Lungs--clear bilaterally, no respiratory distress, no accessory muscle use. Abdomen--distended Extremities--no cyanosis or clubbing. No edema. Dermatologic--normal skin turgor, normal color, no abnormal lymph nodes, no rash. Neurologic--cranial nerves II through XII grossly intact. Rheumatologic--normal range of motion. Psychiatric--normal affect. Results & Data Results & Data Vital Signs (Past 12 Hours) Vital Signs Temp Pulse Resp BP Pulse Ox O2 Del Method O2 Flow Rate 11/08/23 07:41 97.9 F 71 20 125/70 95 Nasal Cannula 2 11/08/23 02:44 97.7 F 70 16 118/69 93 Nasal Cannula 11/07/23 22:39 97.9 F 68 16 111/65 92 Room Air PG Care Time/CCT Total # of Minutes Spent Total Time Spent with Patient: Total time spent is greater than 50% in coordination of care (as documented) at patient's floor/unit and/or counseling patient: Coding Level of Care Code 60452 SUB INP/OBS CARE 2/35MIN Diagnoses Sepsis A41.9 Aspiration pneumonia J69.0 Abdominal ascites R18.8 RODRIGO (acute kidney injury) N17.9 Recurrent falls R29.6 Left leg cellulitis L03.116 Chronic hypoxic respiratory failure J96.11 Diabetes E11.9 Cirrhosis K74.60; R18.8 Ascites presence: with ascites Hepatic cirrhosis type: unspecified hepatic cirrhosis Hypomagnesemia E83.42 Chronic hepatitis C with cirrhosis B18.2; K74.60 Recovering alcoholic F10.21 Bipolar disorder F31.9 Time Spent (min) 35 (9) Cirrhosis Ascites presence: with ascites Hepatic cirrhosis type: unspecified hepatic cirrhosis Qualified Code(s): K74.60 - Unspecified cirrhosis of liver; R18.8 - Other ascites
--- NOTE | 2023-11-08 12:46 | Ultrasound Report ---
Ultrasound guided paracentesis. Clinical indication: ascites. Procedure: Informed consent was obtained from the patient. Sonographic examination revealed large a mount of ascites. A pocket was identified in the left lower quadrant. The skin of the left abdomen was cleaned in the usual fashion. Lidocaine solution was utilized for skin anesthesia. A 6 [place] c atheter was introduced into the pocket and 3.8 liters of ascitic fluid drained. The catheter was rem win. Postprocedural scanning showed significant decrease in the amount of ascites. Complication: No immediate. [employer] Agent: Dr Ramesh Hess IMPRESSION: Ultrasound guided paracentesis as described above. Electronically signed by: Ramesh Hess M.D. 11/08/2023 12:44 PM
[2023-11-08] MEDS: ACETAMINOPHEN 500 MG TAB PO PRN (20:15)
[2023-11-08] MEDS ORDERED: Nursing to Pharmacy Communication SCH (20:15)
[2023-11-09 09:54] LABS: Basophils # (auto) 0.06 K/uL (0.00-0.20); Basophils % (auto) 0.5 %; Eosinophils # (auto) 0.41 K/uL (0.00-0.50); Eosinophils % (auto) 3.6 %; Hematocrit (blood only) 34.8 % (42.0-52.0); Hemoglobin 11.7 g/dl (14.0-18.0); Immature Granulocytes # (auto) 0.17 K/uL (0.01-0.20); Immature Granulocytes % (auto) 1.5 %; Lymphocytes # (auto) 1.59 K/uL (1.20-3.40); Lymphocytes % (auto) 14.1 %; Mean Corpuscular Hemoglobin 31.3 pg (25.0-34.0); Mean Corpuscular Hgb Conc 33.6 g/dL (32.0-36.0); Mean Platelet Volume 10.8 fL (9.4-12.4); Monocytes # (auto) 0.72 K/uL (0.11-0.59); Monocytes % (auto) 6.4 %; Neutrophils # (auto) 8.33 K/uL (1.40-6.50); Neutrophils % (auto) 73.9 %; Nucleated RBC # (auto) 0.04 K/uL (0.00-0.12); Nucleated RBC % (auto) 0.4 %; Platelet Count 46 K/uL (130-400); RDW Coefficient of Variation 18.6 % (11.5-14.5); RDW Standard Deviation 59.5 fL (36.4-46.3); Red Blood Count 3.74 M/uL (4.70-6.10); White Blood Count 11.28 K/ul (4.8-10.8)
[2023-11-09 10:02] LABS: Bilirubin,Total 2.1 mg/dl (0.2-1.0); Calcium 7.3 mg/dl (8.6-10.3); Potassium 4.4 mmol/L (3.5-5.1)
[2023-11-09 10:13] LABS: Albumin Globulin Ratio 0.5 (0.9-2); BUN Creatinine Ratio 25.3 (10-20); Creatinine Clr Calc Pharmacy 120.7 ml/min; Est GFR (African American) 110.8 ml/min; Est GFR (Non-African American) 95.6 ml/min; Globulin 3.9 gm/dl (2.5-4.0); Total Protein 5.9 gm/dl (6.0-8.3)
--- NOTE | 2023-11-09 12:01 | Hospitalist Progress Note ---
Date of Service November 09, 2023 Assessment & Plan (1) Sepsis: Plan: Patient was Admitted with leukocytosis, elevated procalcitonin and elevated lactate with a fever of 38.6 Source is likely from cellulitis and pneumonia Sputum cultures growing MSSA staph Some improvement following IV fluid rehydration and IV antibiotics Currently on IV ceftriaxone metronidazole. vancomycin has been discontinued Continue to follow-up cultures. (2) Aspiration pneumonia: Plan: Chest CT revealed findings compatible with pneumonia; Sputum culture growing staph aureus, MSSA vancomycin has been discontinued, continue ceftriaxone and Flagyl Blood cultures have been negative so far (3) Abdominal ascites: Plan: Paracentesis performed in the ED with removal of 1L IR consulted for ultrasound-guided paracentesis on 11/07, With subsequent removal of 3.8 L (4) RODRIGO (acute kidney injury): Plan: Most likely prerenal Now resolved (5) Recurrent falls: Plan: Patient reports he has fallen multiple times in the past few days and is sometimes down for hours at a time Head CT revealed no acute findings PT/OT evaluations appreciated Fall precautions (6) Left leg cellulitis: Plan: Left lower extremity Doppler ordered, pending ESR/CRP ordered, pending Antibiotics (as above) Daily wound care for superficial abrasion on the left lateral extremity (7) Chronic hypoxic respiratory failure: Plan: Patient is on supplemental oxygen 2.5L NC at baseline BioFire negative Continuous pulse oximetry Supplemental oxygen as needed to maintain SpO2 greater than 94% (8) Diabetes: Plan: Last A1c at 4.9% on 05/31/2023 Glucose 73 on admission Patient reports that he is supposed to be on 80 units Lantus QAM, but has not been consistent with taking Will defer insulin at this time given low glucose despite no insulin, and clear liquid diet Communication order to reach out to provider if glucose >180mg/dL Monitor for hypoglycemia Clear liquid diet, and advance to T2DM diet once tolerated BSG ACHS Adjust regimen as needed AM A1c (9) Cirrhosis: Plan: Most likely from alcohol abuse On lactulose at home, continue (10) Hypomagnesemia: Plan: replace (11) Chronic hepatitis C with cirrhosis: Plan: Not currently being treated for hepatitis (12) Recovering alcoholic: (13) Bipolar disorder: Plan Disposition: continue to monitor, Awaiting evaluation by physical therapy Full code Clear liquid diet for now VTE PPx: Will hold chemical DVT PPx in the setting of paracentesis; will hold mechanical DVT PPx in setting of abrasion on left lower extremity Admission and Anticipated Discharge Date Admission Date: November 06, 2023 Subjective patient seen and examined, sitting up in the edge of the bedd, tolerating diet Review of Systems Review of Systems: All systems reviewed are negative, apart from the ones contained in the history. Physical Exam Physical Exam: The patient is awake, alert and oriented 3, well developed and well nourished, normocephalic and atraumatic, lying in bed and in no acute distress. HEENT--PERRL, EOMI, mucous membranes and oropharynx mildly dry Neck--supple. No JVD. No bruits. Thyroid normal, trachea midline, no adenopathy. Heart--normal S1 and S2. No murmurs, rubs or gallops. Lungs--clear bilaterally, no respiratory distress, no accessory muscle use. Abdomen--distended Extremities--no cyanosis or clubbing. No edema. Dermatologic--normal skin turgor, normal color, no abnormal lymph nodes, no rash. Neurologic--cranial nerves II through XII grossly intact. Rheumatologic--normal range of motion. Psychiatric--normal affect. Results & Data Results & Data Vital Signs (Past 12 Hours) Vital Signs Temp Pulse Pulse Resp BP BP Pulse Ox 11/09/23 10:53 97.7 F 78 19 118/75 98 11/09/23 08:07 70 11/09/23 08:07 11/09/23 07:09 97.9 F 71 19 109/71 96 11/09/23 02:33 98.6 F 76 20 122/74 96 O2 Del Method O2 Flow Rate 11/09/23 10:53 Nasal Cannula 2 11/09/23 08:07 11/09/23 08:07 Nasal Cannula 2 11/09/23 07:09 Nasal Cannula 2.5 11/09/23 02:33 Nasal Cannula PG Care Time/CCT Total # of Minutes Spent Total Time Spent with Patient: Total time spent is greater than 50% in coordination of care (as documented) at patient's floor/unit and/or counseling patient: Coding Level of Care Code 86068 SUB INP/OBS CARE 2/35MIN Diagnoses Sepsis A41.9 Aspiration pneumonia J69.0 Abdominal ascites R18.8 RODRIGO (acute kidney injury) N17.9 Recurrent falls R29.6 Left leg cellulitis L03.116 Chronic hypoxic respiratory failure J96.11 Diabetes E11.9 Cirrhosis K74.60; R18.8 Ascites presence: with ascites Hepatic cirrhosis type: unspecified hepatic cirrhosis Hypomagnesemia E83.42 Chronic hepatitis C with cirrhosis B18.2; K74.60 Recovering alcoholic F10.21 Bipolar disorder F31.9 Time Spent (min) 35 (9) Cirrhosis Ascites presence: with ascites Hepatic cirrhosis type: unspecified hepatic cirrhosis Qualified Code(s): K74.60 - Unspecified cirrhosis of liver; R18.8 - Other ascites
[2023-11-10 06:58] LABS: Albumin Globulin Ratio 0.5 (0.9-2); Albumin Level 1.8 gm/dl (3.4-5.0); BUN Creatinine Ratio 23.9 (10-20); Creatinine Clr Calc Pharmacy 142.5 ml/min; Est GFR (African American) 118.2 ml/min; Globulin 3.4 gm/dl (2.5-4.0); Potassium 4.4 mmol/L (3.5-5.1); Total Protein 5.2 gm/dl (6.0-8.3)
--- NOTE | 2023-11-10 09:41 | Hospitalist Progress Note ---
Date of Service November 10, 2023 Assessment & Plan (1) Sepsis: Plan: Patient was Admitted with leukocytosis, elevated procalcitonin and elevated lactate with a fever of 38.6 Source is likely from cellulitis and pneumonia Sputum cultures growing MSSA staph Resolving following IV fluid rehydration and IV antibiotics Currently on IV ceftriaxone metronidazole. vancomycin has been discontinued Continue to follow-up cultures. Will discontinue IV fluids, patient is drinking okay (2) Aspiration pneumonia: Plan: Chest CT revealed findings compatible with pneumonia; Sputum culture growing staph aureus, MSSA vancomycin has been discontinued, continue ceftriaxone and Flagyl Blood cultures have been negative so far Will further de-escalate antibiotics upon discharge to SNF (3) Abdominal ascites: Plan: Paracentesis performed in the ED with removal of 1L IR consulted for ultrasound-guided paracentesis on 11/07, With subsequent removal of 3.8 L (4) RODRIGO (acute kidney injury): Plan: Most likely prerenal Now resolved (5) Recurrent falls: Plan: Patient reports he has fallen multiple times in the past few days and is sometimes down for hours at a time Head CT revealed no acute findings PT/OT evaluations appreciated Fall precautions (6) Left leg cellulitis: Plan: Left lower extremity Doppler ordered, pending ESR/CRP ordered, pending Antibiotics (as above) Daily wound care for superficial abrasion on the left lateral extremity (7) Chronic hypoxic respiratory failure: Plan: Patient is on supplemental oxygen 2.5L NC at baseline BioFire negative Continuous pulse oximetry Supplemental oxygen as needed to maintain SpO2 greater than 94% (8) Diabetes: Plan: Last A1c at 4.9% on 05/31/2023 Glucose 73 on admission Patient reports that he is supposed to be on 80 units Lantus QAM, but has not been consistent with taking Will defer insulin at this time given low glucose despite no insulin, and clear liquid diet Communication order to reach out to provider if glucose >180mg/dL Monitor for hypoglycemia Clear liquid diet, and advance to T2DM diet once tolerated BSG ACHS Adjust regimen as needed AM A1c (9) Cirrhosis: Plan: Most likely from alcohol abuse On lactulose at home, continue (10) Hypomagnesemia: Plan: replace (11) Chronic hepatitis C with cirrhosis: Plan: Not currently being treated for hepatitis (12) Recovering alcoholic: (13) Bipolar disorder: Plan Disposition: Awaiting SNF placement Full code Clear liquid diet for now VTE PPx: Encourage ambulation Admission and Anticipated Discharge Date Admission Date: November 06, 2023 Subjective patient seen and examined, sitting up in the edge of the bed, tolerating diet, Working with physical therapy, plan is for rehab Review of Systems Review of Systems: All systems reviewed are negative, apart from the ones contained in the history. Physical Exam Physical Exam: The patient is awake, alert and oriented 3, well developed and well nourished, normocephalic and atraumatic, lying in bed and in no acute distress. HEENT--PERRL, EOMI, mucous membranes and oropharynx mildly dry Neck--supple. No JVD. No bruits. Thyroid normal, trachea midline, no adenopathy. Heart--normal S1 and S2. No murmurs, rubs or gallops. Lungs--clear bilaterally, no respiratory distress, no accessory muscle use. Abdomen--distended Extremities--no cyanosis or clubbing. No edema. Dermatologic--normal skin turgor, normal color, no abnormal lymph nodes, no rash. Neurologic--cranial nerves II through XII grossly intact. Rheumatologic--normal range of motion. Psychiatric--normal affect. Results & Data Results & Data Vital Signs (Past 12 Hours) Vital Signs Temp Pulse Pulse Resp BP BP Pulse Ox 11/10/23 08:00 77 11/10/23 08:00 11/10/23 07:21 97.3 F L 79 19 110/74 94 11/10/23 04:00 98.1 F 78 17 124/73 96 11/09/23 23:37 98.2 F 69 17 125/76 95 11/09/23 23:21 74 O2 Del Method O2 Flow Rate 11/10/23 08:00 11/10/23 08:00 Nasal Cannula 2 11/10/23 07:21 Nasal Cannula 2 11/10/23 04:00 Nasal Cannula 2.5 11/09/23 23:37 Nasal Cannula 2.5 11/09/23 23:21 PG Care Time/CCT Total # of Minutes Spent Total Time Spent with Patient: Total time spent is greater than 50% in coordination of care (as documented) at patient's floor/unit and/or counseling patient: Coding Level of Care Code 53369 SUB INP/OBS CARE 2/35MIN Diagnoses Sepsis A41.9 Aspiration pneumonia J69.0 Abdominal ascites R18.8 RODRIGO (acute kidney injury) N17.9 Recurrent falls R29.6 Left leg cellulitis L03.116 Chronic hypoxic respiratory failure J96.11 Diabetes E11.9 Cirrhosis K74.60; R18.8 Ascites presence: with ascites Hepatic cirrhosis type: unspecified hepatic cirrhosis Hypomagnesemia E83.42 Chronic hepatitis C with cirrhosis B18.2; K74.60 Recovering alcoholic F10.21 Bipolar disorder F31.9 Time Spent (min) 35 (9) Cirrhosis Ascites presence: with ascites Hepatic cirrhosis type: unspecified hepatic cirrhosis Qualified Code(s): K74.60 - Unspecified cirrhosis of liver; R18.8 - Other ascites
[2023-11-10] MEDS: INSULIN ASPART PER UNIT CHARGE SC SCH (20:52)
[2023-11-11 06:54] LABS: BUN Creatinine Ratio 20.3 (10-20); Calcium 7.2 mg/dl (8.6-10.3); Creatinine Clr Calc Pharmacy 129.4 ml/min; Est GFR (African American) 113.1 ml/min; Est GFR (Non-African American) 97.6 ml/min; Potassium 4.5 mmol/L (3.5-5.1)
--- NOTE | 2023-11-11 10:26 | Hospitalist Progress Note ---
Date of Service November 11, 2023 Assessment & Plan (1) Sepsis: Plan: Patient was Admitted with leukocytosis, elevated procalcitonin and elevated lactate with a fever of 38.6 Source is likely from cellulitis and pneumonia Sputum cultures growing MSSA staph Resolving following IV fluid rehydration and IV antibiotics Currently on IV ceftriaxone metronidazole. (2) Aspiration pneumonia: Plan: Chest CT revealed findings compatible with pneumonia; Sputum culture growing staph aureus, MSSA vancomycin has been discontinued, continue ceftriaxone and Flagyl Blood cultures have been negative so far Will further de-escalate antibiotics upon discharge to SNF (3) Abdominal ascites: Plan: Paracentesis performed in the ED with removal of 1L IR consulted for ultrasound-guided paracentesis on 11/07, With subsequent removal of 3.8 L (4) RODRIGO (acute kidney injury): Plan: Most likely prerenal Now resolved (5) Recurrent falls: Plan: Patient reports he has fallen multiple times in the past few days and is s ometimes down for hours at a time Head CT revealed no acute findings PT/OT evaluations appreciated Fall precautions (6) Left leg cellulitis: Plan: Left lower extremity Doppler ordered, pending ESR/CRP ordered, pending Antibiotics (as above) Daily wound care for superficial abrasion on the left lateral extremity (7) Chronic hypoxic respiratory failure: Plan: Patient is on supplemental oxygen 2.5L NC at baseline BioFire negative Continuous pulse oximetry Supplemental oxygen as needed to maintain SpO2 greater than 94% (8) Diabetes: Plan: Last A1c at 4.9% on 05/31/2023 Glucose 73 on admission Patient reports that he is supposed to be on 80 units Lantus QAM, but has not been consistent with taking Will defer insulin at this time given low glucose despite no insulin, and clear liquid diet Communication order to reach out to provider if glucose >180mg/dL Monitor for hypoglycemia Clear liquid diet, and advance to T2DM diet once tolerated BSG ACHS Adjust regimen as needed AM A1c (9) Cirrhosis: Plan: Most likely from alcohol abuse On lactulose at home, continue Add spironolactone 25 mg daily (10) Hypomagnesemia: Plan: replace (11) Chronic hepatitis C with cirrhosis: Plan: Not currently being treated for hepatitis (12) Recovering alcoholic: (13) Bipolar disorder: (14) Hyponatremia: Plan Disposition: Awaiting SNF placement Full code Clear liquid diet for now VTE PPx: Encourage ambulation Admission and Anticipated Discharge Date Admission Date: November 06, 2023 Subjective patient seen and examined, sitting up in the edge of the bed, tolerating diet, Working with physical therapy, plan is for rehab Review of Systems Review of Systems: All systems reviewed are negative, apart from the ones contained in the history. Physical Exam Physical Exam: The patient is awake, alert and oriented 3, well developed and well nourished, normocephalic and atraumatic, lying in bed and in no acute distress. HEENT--PERRL, EOMI, mucous membranes and oropharynx mildly dry Neck--supple. No JVD. No bruits. Thyroid normal, trachea midline, no adenopathy. Heart--normal S1 and S2. No murmurs, rubs or gallops. Lungs--clear bilaterally, no respiratory distress, no accessory muscle use. Abdomen--distended Extremities--no cyanosis or clubbing. No edema. Dermatologic--normal skin turgor, normal color, no abnormal lymph nodes, no rash. Neurologic--cranial nerves II through XII grossly intact. Rheumatologic--normal range of motion. Psychiatric--normal affect. Results & Data Results & Data Vital Signs (Past 12 Hours) Vital Signs Temp Pulse Pulse Resp BP BP Pulse Ox 11/11/23 08:00 55 L 11/11/23 08:00 11/11/23 07:31 97.5 F L 81 19 118/73 95 11/11/23 03:52 97.7 F 68 18 113/71 98 11/11/23 00:00 83 11/10/23 23:40 97.5 F L 75 18 123/75 97 O2 Del Method O2 Flow Rate 11/11/23 08:00 11/11/23 08:00 Nasal Cannula 2 11/11/23 07:31 Nasal Cannula 2 11/11/23 03:52 Nasal Cannula 2.5 11/11/23 00:00 11/10/23 23:40 Nasal Cannula 2.5 PG Care Time/CCT Total # of Minutes Spent Total Time Spent with Patient: Total time spent is greater than 50% in coordination of care (as documented) at patient's floor/unit and/or counseling patient: Coding Level of Care Code 67709 SUB INP/OBS CARE 2/35MIN Diagnoses Sepsis A41.9 Aspiration pneumonia J69.0 Abdominal ascites R18.8 RODRIGO (acute kidney injury) N17.9 Recurrent falls R29.6 Left leg cellulitis L03.116 Chronic hypoxic respiratory failure J96.11 Diabetes E11.9 Cirrhosis K74.60; R18.8 Ascites presence: with ascites Hepatic cirrhosis type: unspecified hepatic cirrhosis Hypomagnesemia E83.42 Chronic hepatitis C with cirrhosis B18.2; K74.60 Recovering alcoholic F10.21 Bipolar disorder F31.9 Hyponatremia E87.1 Time Spent (min) 35 (9) Cirrhosis Ascites presence: with ascites Hepatic cirrhosis type: unspecified hepatic cirrhosis Qualified Code(s): K74.60 - Unspecified cirrhosis of liver; R18.8 - Other ascites
[2023-11-12] MEDS: SPIRONOLACTONE 25 MG TAB PO SCH (09:43)
--- NOTE | 2023-11-12 11:55 | Hospitalist Progress Note ---
Date of Service November 12, 2023 Assessment & Plan (1) Sepsis: Plan: Patient was Admitted with leukocytosis, elevated procalcitonin and elevated lactate with a fever of 38.6 Source is likely from cellulitis and pneumonia Sputum cultures growing MSSA staph Resolving following IV fluid rehydration and IV antibiotics Currently on IV ceftriaxone metronidazole. (2) Aspiration pneumonia: Plan: Chest CT revealed findings compatible with pneumonia; Sputum culture growing staph aureus, MSSA vancomycin has been discontinued, continue ceftriaxone and Flagyl Blood cultures have been negative so far Will further de-escalate antibiotics upon discharge to SNF (3) Abdominal ascites: Plan: Paracentesis performed in the ED with removal of 1L IR consulted for ultrasound-guided paracentesis on 11/07, With subsequent removal of 3.8 L (4) RODRIGO (acute kidney injury): Plan: Most likely prerenal Now resolved (5) Recurrent falls: Plan: Patient reports he has fallen multiple times in the past few days and is s ometimes down for hours at a time Head CT revealed no acute findings PT/OT evaluations appreciated Fall precautions (6) Left leg cellulitis: Plan: Left lower extremity Doppler ordered, pending ESR/CRP ordered, pending Antibiotics (as above) Daily wound care for superficial abrasion on the left lateral extremity (7) Chronic hypoxic respiratory failure: Plan: Patient is on supplemental oxygen 2.5L NC at baseline BioFire negative Continuous pulse oximetry Supplemental oxygen as needed to maintain SpO2 greater than 94% (8) Diabetes: Plan: Last A1c at 4.9% on 05/31/2023 Glucose now under better control Continue insulin sliding scale (9) Cirrhosis: Plan: Most likely from alcohol abuse On lactulose at home, continue Add spironolactone 25 mg daily (10) Hypomagnesemia: Plan: replace (11) Chronic hepatitis C with cirrhosis: Plan: Not currently being treated for hepatitis (12) Recovering alcoholic: (13) Bipolar disorder: (14) Hyponatremia: Plan Disposition: Awaiting SNF placement, Patient is medically ready, awaiting authorization Full code Clear liquid diet for now VTE PPx: Encourage ambulation Admission and Anticipated Discharge Date Admission Date: November 06, 2023 Subjective patient seen and examined, sitting up in the edge of the bed, tolerating diet, Working with physical therapy, plan is for rehab, He is medically ready Review of Systems Review of Systems: All systems reviewed are negative, apart from the ones contained in the history. Physical Exam Physical Exam: The patient is awake, alert and oriented 3, well developed and well nourished, normocephalic and atraumatic, lying in bed and in no acute distress. HEENT--PERRL, EOMI, mucous membranes and oropharynx mildly dry Neck--supple. No JVD. No bruits. Thyroid normal, trachea midline, no adenopathy. Heart--normal S1 and S2. No murmurs, rubs or gallops. Lungs--clear bilaterally, no respiratory distress, no accessory muscle use. Abdomen--distended Extremities--no cyanosis or clubbing. No edema. Dermatologic--normal skin turgor, normal color, no abnormal lymph nodes, no rash. Neurologic--cranial nerves II through XII grossly intact. Rheumatologic--normal range of motion. Psychiatric--normal affect. Results & Data Results & Data Vital Signs (Past 12 Hours) Vital Signs Temp Pulse Pulse Resp BP Pulse Ox O2 Del Method 11/12/23 11:50 98.1 F 98 H 21 149/84 H 96 Nasal Cannula 11/12/23 08:00 88 11/12/23 08:00 Nasal Cannula 11/12/23 07:50 98.2 F 96 H 19 107/73 99 Nasal Cannula 11/12/23 03:43 97.9 F 84 18 111/72 97 Nasal Cannula O2 Flow Rate 11/12/23 11:50 2.5 11/12/23 08:00 11/12/23 08:00 2 11/12/23 07:50 2.5 11/12/23 03:43 PG Care Time/CCT Total # of Minutes Spent Total Time Spent with Patient: Total time spent is greater than 50% in coordination of care (as documented) at patient's floor/unit and/or counseling patient: Coding Level of Care Code 74971 SUB INP/OBS CARE 2/35MIN Diagnoses Sepsis A41.9 Aspiration pneumonia J69.0 Abdominal ascites R18.8 RODRIGO (acute kidney injury) N17.9 Recurrent falls R29.6 Left leg cellulitis L03.116 Chronic hypoxic respiratory failure J96.11 Diabetes E11.9 Cirrhosis K74.60; R18.8 Ascites presence: with ascites Hepatic cirrhosis type: unspecified hepatic cirrhosis Hypomagnesemia E83.42 Chronic hepatitis C with cirrhosis B18.2; K74.60 Recovering alcoholic F10.21 Bipolar disorder F31.9 Hyponatremia E87.1 Time Spent (min) 35 (9) Cirrhosis Ascites presence: with ascites Hepatic cirrhosis type: unspecified hepatic cirrhosis Qualified Code(s): K74.60 - Unspecified cirrhosis of liver; R18.8 - Other ascites
[2023-11-12] MEDS: AMOXICILLIN/CLAVULANATE 875 MG TAB PO SCH (16:47)
[2023-11-13 06:55] LABS: BUN Creatinine Ratio 19.8 (10-20); Calcium 7.9 mg/dl (8.6-10.3); Creatinine Clr Calc Pharmacy 96.1 ml/min; Est GFR (Non-African American) 75.9 ml/min; Potassium 4.5 mmol/L (3.5-5.1)
[2023-11-13 07:56] LABS: Hematocrit (blood only) 31.4 % (42.0-52.0); Hemoglobin 10.7 g/dl (14.0-18.0); Mean Corpuscular Hemoglobin 31.4 pg (25.0-34.0); Mean Corpuscular Hgb Conc 34.1 g/dL (32.0-36.0); Mean Corpuscular Volume 92.1 fL (80.0-100.0); Mean Platelet Volume 11.3 fL (9.4-12.4); Platelet Count 62 K/uL (130-400); RDW Coefficient of Variation 19.3 % (11.5-14.5); Red Blood Count 3.41 M/uL (4.70-6.10); White Blood Count 10.81 K/ul (4.8-10.8)
[2023-11-13] MEDS: SODIUM CHLORIDE 1 GM TABLET PO SCH (09:10)
--- NOTE | 2023-11-13 13:12 | Hospitalist Progress Note ---
Date of Service November 13, 2023 Assessment & Plan (1) Sepsis: Plan: Patient was Admitted with leukocytosis, elevated procalcitonin and elevated lactate with a fever of 38.6 Source is likely from cellulitis and pneumonia Sputum cultures growing MSSA staph Resolving following IV fluid rehydration and IV antibiotics Initially on IV ceftriaxone metronidazole. De-escalated to p.o. Augmentin (2) Aspiration pneumonia: Plan: Chest CT revealed findings compatible with pneumonia; Sputum culture growing staph aureus, MSSA vancomycin has been discontinued, continue ceftriaxone and Flagyl Blood cultures have been negative so far De-escalated to p.o. 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 (7) Left leg cellulitis: Plan: Left lower extremity Doppler ordered, pending ESR/CRP ordered, pending Antibiotics (as above) Daily wound care for superficial abrasion on the left lateral extremity (8) Chronic hypoxic respiratory failure: Plan: Patient is on supplemental oxygen 2.5L NC at baseline BioFire negative Continuous pulse oximetry Supplemental oxygen as needed to maintain SpO2 greater than 94% (9) Diabetes: Plan: Last A1c at 4.9% on 05/31/2023 Glucose now under better control Continue insulin sliding scale (10) Cirrhosis: Plan: Most likely from alcohol abuse On lactulose at home, continue Add spironolactone 25 mg daily (11) Hypomagnesemia: Plan: replace (12) Chronic hepatitis C with cirrhosis: Plan: Not currently being treated for hepatitis (13) Recovering alcoholic: (14) Bipolar disorder: (15) Hyponatremia: Plan Disposition: Awaiting SNF placement, Patient is medically ready, awaiting authorization Full code Clear liquid diet for now VTE PPx: Encourage ambulation Admission and Anticipated Discharge Date Admission Date: November 06, 2023 Subjective patient seen and examined, sitting up in the edge of the bed, tolerating diet, Working with physical therapy, plan is for rehab, He is medically ready Review of Systems Review of Systems: All systems reviewed are negative, apart from the ones contained in the history. Physical Exam Physical Exam: The patient is awake, alert and oriented 3, well developed and well nourished, normocephalic and atraumatic, lying in bed and in no acute distress. HEENT--PERRL, EOMI, mucous membranes and oropharynx mildly dry Neck--supple. No JVD. No bruits. Thyroid normal, trachea midline, no adenopathy. Heart--normal S1 and S2. No murmurs, rubs or gallops. Lungs--clear bilaterally, no respiratory distress, no accessory muscle use. Abdomen--distended Extremities--no cyanosis or clubbing. No edema. Dermatologic--normal skin turgor, normal color, no abnormal lymph nodes, no rash. Neurologic--cranial nerves II through XII grossly intact. Rheumatologic--normal range of motion. Psychiatric--normal affect. Results & Data Results & Data Vital Signs (Past 12 Hours) Vital Signs Temp Pulse Pulse Pulse Resp BP Pulse Ox 11/13/23 11:29 98.1 F 94 H 18 125/69 96 11/13/23 09:40 91 H 11/13/23 09:40 11/13/23 07:37 98.1 F 96 H 16 127/73 98 11/13/23 07:32 98.1 F 88 18 98/62 L 98 11/13/23 03:33 97.9 F 90 18 131/77 98 O2 Del Method O2 Flow Rate 11/13/23 11:29 Nasal Cannula 2 11/13/23 09:40 11/13/23 09:40 Nasal Cannula 2 11/13/23 07:37 Nasal Cannula 2 11/13/23 07:32 Room Air, Nasal Cannula 2 11/13/23 03:33 Nasal Cannula PG Care Time/CCT Total # of Minutes Spent Total Time Spent with Patient: Total time spent is greater than 50% in coordination of care (as documented) at patient's floor/unit and/or counseling patient: Coding Level of Care Code 92213 SUB INP/OBS CARE 2/35MIN Diagnoses Sepsis A41.9 Aspiration pneumonia J69.0 Abdominal ascites R18.8 RODRIGO (acute kidney injury) N17.9 Recurrent falls R29.6 Petechiae R23.3 Left leg cellulitis L03.116 Chronic hypoxic respiratory failure J96.11 Diabetes E11.9 Cirrhosis K74.60; R18.8 Ascites presence: with ascites Hepatic cirrhosis type: unspecified hepatic cirrhosis Hypomagnesemia E83.42 Chronic hepatitis C with cirrhosis B18.2; K74.60 Recovering alcoholic F10.21 Bipolar disorder F31.9 Hyponatremia E87.1 Time Spent (min) 35 (10) Cirrhosis Ascites presence: with ascites Hepatic cirrhosis type: unspecified hepatic cirrhosis Qualified Code(s): K74.60 - Unspecified cirrhosis of liver; R18.8 - Other ascites
[2023-11-13] MEDS: ONDANSETRON INJ 2 MG/ML 2 ML VIAL IV PRN (20:55)
[2023-11-14 07:21] LABS: Basophils # (auto) 0.06 K/uL (0.00-0.20); Basophils % (auto) 0.6 %; Eosinophils # (auto) 0.29 K/uL (0.00-0.50); Eosinophils % (auto) 2.8 %; Hematocrit (blood only) 30.5 % (42.0-52.0); Hemoglobin 10.6 g/dl (14.0-18.0); Immature Granulocytes # (auto) 0.13 K/uL (0.01-0.20); Immature Granulocytes % (auto) 1.2 %; Lymphocytes # (auto) 1.35 K/uL (1.20-3.40); Lymphocytes % (auto) 12.8 %; Mean Corpuscular Hemoglobin 31.5 pg (25.0-34.0); Mean Corpuscular Hgb Conc 34.8 g/dL (32.0-36.0); Mean Corpuscular Volume 90.5 fL (80.0-100.0); Mean Platelet Volume 10.1 fL (9.4-12.4); Monocytes # (auto) 0.83 K/uL (0.11-0.59); Monocytes % (auto) 7.9 %; Neutrophils # (auto) 7.87 K/uL (1.40-6.50); Neutrophils % (auto) 74.7 %; Platelet Count 72 K/uL (130-400); RDW Coefficient of Variation 19.5 % (11.5-14.5); RDW Standard Deviation 63.7 fL (36.4-46.3); Red Blood Count 3.37 M/uL (4.70-6.10); White Blood Count 10.53 K/ul (4.8-10.8)
[2023-11-14 07:36] LABS: BUN Creatinine Ratio 19.4 (10-20); Calcium 7.9 mg/dl (8.6-10.3); Creatinine Clr Calc Pharmacy 83.5 ml/min; Est GFR (African American) 72.8 ml/min; Est GFR (Non-African American) 62.8 ml/min; Potassium 4.3 mmol/L (3.5-5.1)
--- NOTE | 2023-11-14 11:20 | Hospitalist Progress Note ---
Date of Service November 14, 2023 Assessment & Plan (1) Sepsis: Plan: Source is likely from cellulitis and pneumonia Sputum cultures growing MSSA staph Resolved following IV fluid rehydration and IV antibiotics Initially on IV ceftriaxone metronidazole. De-escalated to p.o. Augmentin (2) Aspiration pneumonia: Plan: Chest CT revealed findings compatible with pneumonia; Sputum culture growing staph aureus, MSSA Blood cultures have been negative so far De-escalated to p.o. 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 Platelet count is improving (7) Left leg cellulitis: Plan: Left lower extremity Doppler ordered, pending ESR/CRP ordered, pending Antibiotics (as above) Daily wound care for superficial abrasion on the left lateral extremity (8) Chronic hypoxic respiratory failure: Plan: Patient is on supplemental oxygen 2.5L NC at baseline BioFire negative Continuous pulse oximetry Supplemental oxygen as needed to maintain SpO2 greater than 94% (9) Diabetes: Plan: Last A1c at 4.9% on 05/31/2023 Glucose now under better control Continue insulin sliding scale (10) Cirrhosis: Plan: Most likely from alcohol abuse On lactulose at home, continue Add spironolactone 25 mg daily (11) Hypomagnesemia: Plan: replace (12) Chronic hepatitis C with cirrhosis: Plan: Not currently being treated for hepatitis (13) Recovering alcoholic: (14) Bipolar disorder: (15) Hyponatremia: Plan Disposition: Awaiting SNF placement, Patient is medically ready, awaiting author ization Full code Clear liquid diet for now VTE PPx: Encourage ambulation Admission and Anticipated Discharge Date Admission Date: November 06, 2023 Subjective patient seen and examined, plan is for rehab, He is medically ready,Denies nausea or vomiting but concerned about rash on his extremities Review of Systems Review of Systems: All systems reviewed are negative, apart from the ones contained in the history. Physical Exam Physical Exam: The patient is awake, alert and oriented 3, well developed and well nourished, normocephalic and atraumatic, lying in bed and in no acute distress. HEENT--PERRL, EOMI, mucous membranes and oropharynx mildly dry Neck--supple. No JVD. No bruits. Thyroid normal, trachea midline, no adenopathy. Heart--normal S1 and S2. No murmurs, rubs or gallops. Lungs--clear bilaterally, no respiratory distress, no accessory muscle use. Abdomen--distended Extremities--no cyanosis or clubbing. No edema. Dermatologic--Petechia upper extremities, lower back Neurologic--cranial nerves II through XII grossly intact. Rheumatologic--normal range of motion. Psychiatric--normal affect. Results & Data Results & Data Vital Signs (Past 12 Hours) Vital Signs Temp Pulse Pulse Resp BP BP Pulse Ox 11/14/23 08:00 11/14/23 07:57 97.7 F 96 H 16 118/69 98 11/14/23 07:00 91 H 11/14/23 02:43 97.5 F L 95 H 18 113/70 97 O2 Del Method O2 Flow Rate 11/14/23 08:00 Nasal Cannula 2.5 11/14/23 07:57 Nasal Cannula 2 11/14/23 07:00 11/14/23 02:43 Nasal Cannula 2.5 PG Care Time/CCT Total # of Minutes Spent Total Time Spent with Patient: Total time spent is greater than 50% in coordination of care (as documented) at patient's floor/unit and/or counseling patient: Coding Level of Care Code 11180 SUB INP/OBS CARE 2/35MIN Diagnoses Sepsis A41.9 Aspiration pneumonia J69.0 Abdominal ascites R18.8 RODRIGO (acute kidney injury) N17.9 Recurrent falls R29.6 Petechiae R23.3 Left leg cellulitis L03.116 Chronic hypoxic respiratory failure J96.11 Diabetes E11.9 Cirrhosis K74.60; R18.8 Ascites presence: with ascites Hepatic cirrhosis type: unspecified hepatic cirrhosis Hypomagnesemia E83.42 Chronic hepatitis C with cirrhosis B18.2; K74.60 Recovering alcoholic F10.21 Bipolar disorder F31.9 Hyponatremia E87.1 Time Spent (min) 35 (10) Cirrhosis Ascites presence: with ascites Hepatic cirrhosis type: unspecified hepatic cirrhosis Qualified Code(s): K74.60 - Unspecified cirrhosis of liver; R18.8 - Other ascites
[2023-11-15 07:50] LABS: Hematocrit (blood only) 31.1 % (42.0-52.0); Hemoglobin 10.7 g/dl (14.0-18.0); Mean Corpuscular Hemoglobin 31.4 pg (25.0-34.0); Mean Corpuscular Hgb Conc 34.4 g/dL (32.0-36.0); Mean Corpuscular Volume 91.2 fL (80.0-100.0); Mean Platelet Volume 10.6 fL (9.4-12.4); Platelet Count 107 K/uL (130-400); RDW Coefficient of Variation 20.2 % (11.5-14.5); RDW Standard Deviation 66.6 fL (36.4-46.3); Red Blood Count 3.41 M/uL (4.70-6.10); White Blood Count 14.37 K/ul (4.8-10.8)
[2023-11-15 08:01] LABS: BUN Creatinine Ratio 18.9 (10-20); Calcium 8.2 mg/dl (8.6-10.3); Creatinine Clr Calc Pharmacy 62.3 ml/min; Est GFR (African American) 50.1 ml/min; Est GFR (Non-African American) 43.2 ml/min; Potassium 4.5 mmol/L (3.5-5.1)
[2023-11-15] MEDS: FUROSEMIDE 40 MG/4 ML VIAL IV ONE (12:01)
--- NOTE | 2023-11-15 12:11 | Hospitalist Progress Note ---
Date of Service November 15, 2023 Assessment & Plan (1) Sepsis: Plan: Source is likely from cellulitis and pneumonia Sputum cultures growing MSSA staph Resolved following IV fluid rehydration and IV antibiotics Initially on IV ceftriaxone metronidazole. De-escalated to p.o. Augmentin (2) Aspiration pneumonia: Plan: Chest CT revealed findings compatible with pneumonia; Sputum culture growing staph aureus, MSSA Blood cultures have been negative so far De-escalated to p.o. Augmentin (3) Abdominal ascites: Plan: Paracentesis performed in the ED with removal of 1L IR consulted for ultrasound-guided paracentesis on 11/07, With subsequent removal of 3.8 L However since his abdomen is getting distended again, will repeat his ultrasound he possibly needs another paracentesis (4) RODRIGO (acute kidney injury): Plan: Most likely prerenal Now resolved (5) Recurrent falls: Plan: Patient reports he has fallen multiple times in the past few days and is sometimes down for hours at a time Head CT revealed no acute findings PT/OT evaluations appreciated Fall precautions Will benefit from rehab by PT (6) Petechiae: Plan: Developed petechial rash on the lower back and also on the arms 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 Platelet count is improving (7) Left leg cellulitis: Plan: Continue wound care Due to worsening leg edema, the wound has continued to weep (8) Chronic hypoxic respiratory failure: Plan: Patient is on supplemental oxygen 2.5L NC at baseline BioFire negative Continuous pulse oximetry Supplemental oxygen as needed to maintain SpO2 greater than 94% (9) Diabetes: Plan: Last A1c at 4.9% on 05/31/2023 Glucose now under better control Continue insulin sliding scale (10) Cirrhosis: Plan: Most likely from alcohol abuse On lactulose at home, continue Add spironolactone 25 mg daily (11) Hypomagnesemia: Plan: replace (12) Chronic hepatitis C with cirrhosis: Plan: Not currently being treated for hepatitis (13) Recovering alcoholic: (14) Bipolar disorder: (15) Hyponatremia: Plan Disposition: Awaiting SNF placement, Patient is medically ready, awaiting authorization Full code Clear liquid diet for now VTE PPx: Encourage ambulation Admission and Anticipated Discharge Date Admission Date: November 06, 2023 Subjective patient seen and examined, Complains that his legs are getting more swollen and his wound is getting worse with weeping, his abdomen is beginning to fill up with fluid again according to him Review of Systems Review of Systems: All systems reviewed are negative, apart from the ones contained in the history. Physical Exam Physical Exam: The patient is awake, alert and oriented 3, well developed and well nourished, normocephalic and atraumatic, lying in bed and in no acute distress. HEENT--PERRL, EOMI, mucous membranes and oropharynx mildly dry Neck--supple. No JVD. No bruits. Thyroid normal, trachea midline, no adenopathy. Heart--normal S1 and S2. No murmurs, rubs or gallops. Lungs--clear bilaterally, no respiratory distress, no accessory muscle use. Abdomen--distended Extremities--no cyanosis or clubbing. Bilateral pitting edema, weeping wound Dermatologic--Petechia upper extremities, lower back Neurologic--cranial nerves II through XII grossly intact. Rheumatologic--normal range of motion. Psychiatric--normal affect. Results & Data Results & Data Vital Signs (Past 12 Hours) Vital Signs Temp Pulse Resp BP BP Pulse Ox O2 Del Method 11/15/23 11:26 97.7 F 104 H 18 121/75 94 Nasal Cannula 11/15/23 07:54 97.5 F L 98 H 20 121/71 96 Nasal Cannula 11/15/23 03:48 97.5 F L 99 H 18 126/76 97 Nasal Cannula O2 Flow Rate 11/15/23 11:26 2 11/15/23 07:54 2 11/15/23 03:48 2.5 PG Care Time/CCT Total # of Minutes Spent Total Time Spent with Patient: Total time spent is greater than 50% in coordination of care (as documented) at patient's floor/unit and/or counseling patient: Coding Level of Care Code 86547 SUB INP/OBS CARE 2/35MIN Diagnoses Sepsis A41.9 Aspiration pneumonia J69.0 Abdominal ascites R18.8 RODRIGO (acute kidney injury) N17.9 Recurrent falls R29.6 Petechiae R23.3 Left leg cellulitis L03.116 Chronic hypoxic respiratory failure J96.11 Diabetes E11.9 Cirrhosis K74.60; R18.8 Ascites presence: with ascites Hepatic cirrhosis type: unspecified hepatic cirrhosis Hypomagnesemia E83.42 Chronic hepatitis C with cirrhosis B18.2; K74.60 Recovering alcoholic F10.21 Bipolar disorder F31.9 Hyponatremia E87.1 Time Spent (min) 35 (10) Cirrhosis Ascites presence: with ascites Hepatic cirrhosis type: unspecified hepatic cirrhosis Qualified Code(s): K74.60 - Unspecified cirrhosis of liver; R18.8 - Other ascites
[2023-11-15] MEDS: rifAXIMin 550 MG TABLET PO SCH (14:56)
[2023-11-15] MEDS: FUROSEMIDE 40 MG/4 ML VIAL IV SCH (21:35)
[2023-11-16 06:48] LABS: Hematocrit (blood only) 28.5 % (42.0-52.0); Hemoglobin 10.1 g/dl (14.0-18.0); Mean Corpuscular Hemoglobin 32.2 pg (25.0-34.0); Mean Corpuscular Hgb Conc 35.4 g/dL (32.0-36.0); Mean Corpuscular Volume 90.8 fL (80.0-100.0); Mean Platelet Volume 10.6 fL (9.4-12.4); Platelet Count 91 K/uL (130-400); RDW Coefficient of Variation 20.1 % (11.5-14.5); RDW Standard Deviation 65.9 fL (36.4-46.3); Red Blood Count 3.14 M/uL (4.70-6.10); White Blood Count 15.59 K/ul (4.8-10.8)
[2023-11-16 07:32] LABS: Anion Gap 5 (3-11); BUN Creatinine Ratio 19.3 (10-20); Blood Urea Nitrogen 37 mg/dl (6-23); Calcium 8.2 mg/dl (8.6-10.3); Carbon Dioxide 17 mmol/L (21-32); Chloride 102 mmol/L (98-107); Est GFR (African American) 42.9 ml/min; Glucose 140 mg/dl (70-99(Fasting)); Sodium 124 mmol/L (136-145)
[2023-11-16] MEDS ORDERED: FUROSEMIDE 40 MG/4 ML VIAL IV SCH (09:00)
[2023-11-16] MEDS ORDERED: STAT IV/IM STA (09:29)
[2023-11-16] MEDS: SODIUM CHLORIDE 3 % 100 ML IV ONE (09:58)
[2023-11-16] MEDS: ALBUMIN 25% 12.5 GM/50 ML VIAL IV SCH (10:06)
[2023-11-16 10:31] VITALS: O2SAT 97
[2023-11-16] MEDS: SODIUM CHLORIDE 1 GM TABLET PO SCH (11:13)
[2023-11-16] MEDS: SODIUM CHLORIDE 0.9% 250 ML IV ONE (11:14)
--- NOTE | 2023-11-16 11:20 | Discharge Summary ---
Date of Service November 16, 2023 Admission HPI Per Admitting Provider Chuck is a 62-year-old male with PMH of chronic hepatitis C with cirrhosis, metabolic encephalopathy, HTN, anxiety, GERD, COPD, gastroparesis, prior alcoholism, opioid use disorder, and bipolar disorder. He presented for generalized body pain and ambulatory dysfunction x 2-3 days. He has had multiple falls at home's over that period of time. No LOC. No head strike. Patient reports that he is usually able to get himself up after crawling for a while, but can be on the ground for minutes to hours at a time. He does have a history of paracentesis with the last one being 2 weeks ago. Patient is a current tobacco cigarette smoker; 1 PPD. He is a former alcoholic, but is currently in recovery and denies alcohol use within the past year; he also is a former heroin user, but has not had heroin in the past 2 years. He denies all other forms of recreational drug use at this time. At time of admission, he does endorse bilateral flank pain; 06/30. Patient did not take any of his regular morning medications today, including his insulin; he reports he is supposed to be taking 80u Lantus QAM. Patient reports poor compliance with taking lactulose at home; he is currently prescribed lactulose TID, but may only take it once per day, as he does not tolerate it well (diarrhea). No PMH of DVT/PE. He is on continuous oxygen supplementation 2.5L NC at baseline. He is also supposed to be on CPAP, but is noncompliant at home. Patient is febrile at time of admission at 38.6 C. ED course: Metronidazole 500 mg IV Rocephin 2000 mg IV Vancomycin 2500 mg IV NSS 1500 mL IV Magnesium sulfate 1 g IV ROS: Patient endorses generalized weakness, abdominal filling, bilateral flank pain, night-sweats, lightheadedness when standing, nausea, vomiting, and diarrhea (which patient attributes to lactulose use), and ambulatory dysfunction. Patient denies fever, chills, chest pain, SOB, cough, abdominal pain at present, or blood in the urine or stool. Principal Diagnosis Lobar pneumonia, lower extremity cellulitis Discharge Exam The patient is awake, alert and oriented 3, well developed and well nourished, normocephalic and atraumatic, lying in bed and in no acute distress. HEENT--PERRL, EOMI, mucous membranes and oropharynx mildly dry Neck--supple. No JVD. No bruits. Thyroid normal, trachea midline, no adenopathy. Heart--normal S1 and S2. No murmurs, rubs or gallops. Lungs--clear bilaterally, no respiratory distress, no accessory muscle use. Abdomen--distended Extremities--no cyanosis or clubbing. Bilateral pitting edema, weeping wound Dermatologic--Petechia upper extremities, lower back Neurologic--cranial nerves II through XII grossly intact. Rheumatologic--normal range of motion. Psychiatric--normal affect. Discharge Data Allergies Allergy/AdvReac Type Severity Reaction Status Date / Time No Known Allergies Allergy Verified 11/06/23 17:21 Consultations 11/06/23 17:46 ED Decision to Admit Stat Ordered Studies 11/06/23 15:34 CT abd pelvis wo con Stat CT chest diagnostic wo con Stat 11/06/23 15:36 CT head/brain wo con Stat 11/06/23 19:45 US venous doppler LE LT Stat 11/08/23 IR paracentesis abd w/img US Routine 11/16/23 IR paracentesis abd w/img US Routine Hospital Course (1) Sepsis: Source is likely from cellulitis and pneumonia Sputum cultures growing MSSA staph Resolved following IV fluid rehydration and IV antibiotics Initially on IV ceftriaxone metronidazole. De-escalated to p.o. Augmentin (2) Aspiration pneumonia: Chest CT revealed findings compatible with pneumonia; Sputum culture growing staph aureus, MSSA Blood cultures have been negative so far De-escalated to p.o. Augmentin (3) Abdominal ascites: Paracentesis performed in the ED with removal of 1L IR consulted for ultrasound-guided paracentesis on 11/07, With subsequent removal of 3.8 L Had another paracentesis today 11/16/23 with removal of about 4 L (4) RODRIGO (acute kidney injury): Most likely prerenal Now resolved (5) Recurrent falls: Patient reports he has fallen multiple times in the past few days and is sometimes down for hours at a time Head CT revealed no acute findings PT/OT evaluations appreciated Fall precautions Will benefit from rehab by PT (6) Petechiae: Developed petechial rash on the lower back and also on the arms 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 Platelet count is improving (7) Left leg cellulitis: Continue wound care Due to worsening leg edema, the wound has continued to weep (8) Chronic hypoxic respiratory failure: Patient is on supplemental oxygen 2.5L NC at baseline BioFire negative Continuous pulse oximetry Supplemental oxygen as needed to maintain SpO2 greater than 94% (9) Diabetes: Last A1c at 4.9% on 05/31/2023 Glucose now under better control Continue insulin sliding scale (10) Cirrhosis: Most likely from alcohol abuse On lactulose at home, continue Add spironolactone 25 mg daily (11) Hypomagnesemia: replace (12) Chronic hepatitis C with cirrhosis: Not currently being treated for hepatitis (13) Recovering alcoholic: (14) Bipolar disorder: (15) Hyponatremia: Most likely due to cirrhosis Serum sodium today 124 Received hypertonic saline Plan Disposition: Awaiting SNF placement, Patient is medically ready, awaiting authorization Full code Clear liquid diet for now VTE PPx: Encourage ambulation Total Time Total Time Spent Total Time Spent (In Minutes): 35 Discharge Plan Discharge Items Patient Disposition: Transfer [facility] Reason For Visit: SEPSIS Discharge Diagnosis: Lobar pneumonia Activity: Resume your previous activity Non-emergency contact: Primary Care Provider and Management Analyst Call non-emergency contact if: you have any medication questions Follow-up/Referrals: Ina Hearn CRNP [Primary Care Provider] - Diet: Regular Addtl Attending Provider Instructions: Please make appointment to follow-up with her regular PCP and also make appointment to follow-up with Erna Valdez for palliative care. Pending Studies at Discharge: No Stand-Alone Forms: My [facility] Skilled Items Patient informed of condition?: Yes DNR: No Discharge Level of Care: Skilled Communicable Disease: No Discharge Prognosis: Stable Lines: None Urinary Catheter: No Medications and DC Order Prescriptions: New amoxicillin-pot clavulanate 875-125 mg Tablet 1 tab PO BIDM 5 Days Qty: 10 0RF Continued insulin lispro [Humalog U-100 Insulin] 100 unit/mL Solution 0 unit SUBCUT UD Patient Comments: only takes once daily 10 units because he only eats once daily Rx Instructions: Sliding scale with meals insulin glargine [Lantus Solostar U-100 Insulin] 100 unit/mL (3 mL) Insulin Pen 0 unit SUBCUT UD Patient Comments: 20 units Rx Instructions: Prescribed 80 units BID, usually takes 40 units bid but it varies. gabapentin 800 mg tablet 800 mg PO TID diclofenac sodium [Voltaren Arthritis Pain] 1 % Gel 4 g EXT QID PRN (Reason: back pain) Qty: 1 0RF Rx Instructions: purchase isry-cbv-[id number] omeprazole 40 mg capsule,delayed release(DR/EC) 40 mg PO QAM Qty: 30 1RF buprenorphine HCl 8 mg tablet, sublingual 8 mg SUBLINGUAL QAM lactulose 20 gram/30 mL Solution 20 g PO TID Qty: 60 0RF Patient Comments: haven't been taking three times a day/usually take once or twice a day Rx Instructions: Pt has been reducing this due to the loose bms buprenorphine HCl 8 mg tablet, sublingual 16 mg SUBLINGUAL QPM spironolactone 100 mg tablet 100 mg PO DAILY fluoxetine 20 mg tablet 20 mg PO DAILY furosemide 20 mg tablet 20 mg PO .BID UD Discharge Orders: Discharge Order (Routine); Ordered 11/16/23 Ordered By: Zachery Purvis Admission Data Admit Date/Time: 11/06/23 19:34 Attending Provider: Zachery Purvis Admit Provider: Yuri Chappell Primary Care Provider: Ina Hearn Other Providers: Yuri Chappell; Ninoska Rubio Coding Level of Care Code 33122 INP/OBS DISCH >30 MIN Diagnoses Sepsis A41.9 Aspiration pneumonia J69.0 Abdominal ascites R18.8 RODRIGO (acute kidney injury) N17.9 Recurrent falls R29.6 Petechiae R23.3 Left leg cellulitis L03.116 Chronic hypoxic respiratory failure J96.11 Diabetes E11.9 Cirrhosis K74.60; R18.8 Ascites presence: with ascites Hepatic cirrhosis type: unspecified hepatic cirrhosis Hypomagnesemia E83.42 Chronic hepatitis C with cirrhosis B18.2; K74.60 Recovering alcoholic F10.21 Bipolar disorder F31.9 Hyponatremia E87.1 Time Spent (min) 35
[2023-11-16 11:56] VITALS: RESP 20; TEMP 97.3
[2023-11-16 12:11] VITALS: PULSE 104
[2023-11-16 12:13] VITALS: BP 115/67
--- NOTE | 2023-11-16 12:42 | Ultrasound Report ---
Ultrasound-guided paracentesis INDICATION: Ascites PROCEDURE: Procedure and risks were explained. Informed consent was obtained. A final time out was co mpleted. The abdomen was prepped and draped in sterile fashion. 1% buffered lidocaine was utilized fo r skin anesthesia. Utilizing ultrasound guidance, a 5 [employer] safety centesis catheter was advanced into the right lower quadrant pocket of ascites. Ultrasound images were obtained. 4000 mL of ascites fluid was removed wit h 1 L sent to lab for analysis. The catheter was removed and Band-Aid applied. The patient tolerated the procedure well. Vital signs will be monitored postprocedure. IMPRESSION: Paracentesis as above. Performed, dictated, and signed by Dimas Stanley PA-C; to be co-signed by Dr. Remi Hernandez. Electronically signed by: Remi Hernandez M.D. 11/16/2023 12:56 PM
[2023-11-16 12:54] LABS: BUN Creatinine Ratio 20.1 (10-20); Blood Urea Nitrogen 39 mg/dl (6-23); Carbon Dioxide 17 mmol/L (21-32); Chloride 103 mmol/L (98-107); Creatinine Clr Calc Pharmacy 54.5 ml/min; Est GFR (African American) 42.4 ml/min; Est GFR (Non-African American) 36.6 ml/min; Glucose 170 mg/dl (70-99(Fasting))
== END 2023-11-16 14:04 | DRG 871 ==
LOC: ED 12:41 → SUATTDRO 19:34 → 2S 19:34

== ENCOUNTER 2023-11-20 09:55 | Inpatient (IN) ==
--- NOTE | 2023-11-20 10:10 | Emergency Department Note ---
Impression & Plan Acute hyponatremia, RODRIGO (acute kidney injury), Acidosis, Elevated lactic acid level, Pneumonia ED Provider Note NAME: KAYODE GREENFILED AGE: 62 SEX: M : 1960 ARRIVES VIA: Ambulance INFORMANT: Patient ED PROVIDER(S): Lencho Jade DO CHIEF COMPLAINT: Weakness and an elevated white count HPI: Patient is a 62-year-old male with a past medical history of sepsis, diabetes, renal failure, hepatic encephalopathy, GERD and hepatitis C who presents to the ER for weakness which has been going on since yesterday. He admits to pain in his scrotum and his left lower leg with redness. He notes he does have belly pain but that is chronic. He denies any new cough or congestion as he notes this has been there for quite some time. No chest pain or shortness of breath. He admits to increased swelling. No dysuria, urgency or frequency. No other exacerbating or remitting factors. ADDITIONAL HISTORY OBTAINED: Per HPI Chronic Medical/Social Conditions Affecting Care: Per HPI PAST MEDICAL HISTORY:See Below PAST SURGICAL HISTORY:See Below FAMILY HISTORY:See Below SOCIAL HISTORY:See Below HOME MEDICATIONS:See Below ALLERGIES:See Below VITALS:See Below PHYSICAL EXAMINATION: GENERAL: Sitting up in bed, alert, but sleepy, ill-appearing, disheveled EYE EXAM: normal conjunctiva. PERRL and EOM's grossly intact. OROPHARYNX: no exudate, no erythema, lips, buccal mucosa, and tongue normal and mucous membranes are moist NECK: supple, no nuchal rigidity, no adenopathy, non-tender LUNGS: Clear to auscultation. Normal chest wall mechanics HEART: S1 normal and S2 normal ABDOMEN: abdomen soft, non-tender, normo-active bowel sounds, no masses, no rebound or guarding. SKIN: Diffuse petechiae/bruising UPPER EXTREMITIES: upper extremities are grossly normal. LOWER EXTREMITIES: Diffuse pitting edema tracking up to the abdomen NEURO EXAM: Normal sensorium, cranial nerves II-XII grossly intact, normal speech, no gross weakness of arms, no gross weakness of legs. MEDICAL DECISION MAKING: Patient is a 62-year-old male who presents ER for the above-stated complaint. IV was established blood work was obtained. Labs show leukocytosis of 15,000 and anemia at 9.9. INR 2.2. BMP with a hyponatremia at 122. CO2 was low at 18. Creatinine was up at 2.5 from baseline of what appears to be 1.6. Upon last visit trended up to 1.9 as well as the sodium was at 124. Patient was given IV antibiotics as he does appear to have a subtle cellulitis in that left lower extremity. Lactate trended down. Troponin was negative. Pro-Karthik 0.52. Ammonia 39. UA was clean. Viral panel was negative. Chest x-ray suggestive of pneumonia and CT abdomen pelvis did confirm this. Patient was given IV antibiotics updated bedside. Due to lack of IV access central line was placed in the right IJ. IJ did slide and slightly deeper than desired x-ray confirmed it was still in the SVC and consequently was not withdrawn. Consults/Care Managements Discussions: Per [facility] Triage Nursing notes reviewed. Limited review of prior medical records performed Vital Signs: reviewed and remarkable for no significant abnormalities Differential diagnosis: Differential diagnosis includes etiologies such as sepsis, UTI, pneumonia, metabolic, electrolyte abnormalities, cardiac sources, intracerebral event, toxicologic, neurological, as well as others were entertained. ER treatment provided: See below Diagnostics interpreted by me include EKG and cardiac monitoring as listed below: -Cardiac Monitoring: An order was placed for continuous cardiac monitoring. The monitor shows a rate of 90 with sinus rhythm. -ECG: Sinus rhythm rate 92 Normal axis No PVCs Low voltage QTc 469 -Laboratory studies:Interpreted by me as stated above in MDM and shown below. Imaging studies: Xrays: As interpreted by me: Portable AP upright 1 view of the chest shows subtle infiltrates in the bases lungs CTs show: CT abdomen pelvis as described above Procedures:PROCEDURE NOTE - Central Line Insertion - Ultrasound Guided PRIOR TO PROCEDURE: Consent: Discussion was held with the patient concerning central line. The risks and benefits were explained with possible risks to include bleeding, pain, pneumothorax, hemothorax, pulmonary contusion, pulmonary laceration, and infection. The patient freely consented. The patient was evaluated prior to the procedure. The patient was identified and the procedure verified as central line insertion. A Time Out was held and the following information confirmed. Verify Correct Patient: Yes Verify Correct Site: Yes Availability of Necessary Equipment: Yes PROCEDURE NOTE: Procedure: Central Line Inserting Clinician: Lencho Jade DO. Guide-wire was removed, examined and is intact Complication/Corrective Action: none Estimated Blood Loss: 3 mls US guided line placement: Yes I have reviewed and educated the patient and or family regarding the benefits and risks of central line insertion, and I have reviewed the potential complications including infection - yes CENTRAL LINE BUNDLE: Skin Prep: Chlorhexidine/alcohol Barriers Used: Mask: yes Sterile gown: yes Large sterile drape: yes Cap: yes Sterile gloves: yes Insertion Status: new site Indications - include all that apply: IV access Placement Conditions: elective Site: RIJ Side: right Number of lumen(s): 3 Length of catheter inserted into patient: 17 centimeters Anesthesia: local Number of Needle Passes: 1 Radiological confirmation: Yes I performed the procedure. Critical Care: None Past Med/Surg History Problem List (Updated 11/20/23 @ 14:10 by Lencho Jade DO) Pneumonia (Acute) Elevated lactic acid level (Acute) Acidosis (Acute) RODRIGO (acute kidney injury) (Acute) Acute hyponatremia (Acute) Hepatic failure Hypotension Skin lesion of left lower extremity Abdominal ascites Anemia Petechiae RODRIGO (acute kidney injury) Hypoalbuminemia (Acute) Cirrhosis (Acute) Acute renal failure (Acute) Pneumonia (Acute) Sepsis (Acute) Diabetes Aspiration pneumonia Left leg cellulitis (Acute) Chronic hypoxic respiratory failure Recurrent falls Sepsis Acute hepatic encephalopathy (Acute) Urinary retention Alcoholism Confusion and disorientation Hepatic encephalopathy Thrombocytopenia Bipolar disorder Recovering alcoholic quit November 2019 > brief relapse Mar 2022, was hospitalized [facility], high ammonia levels, once DC'ed from hospital, no more alcohol Chronic hepatitis C with cirrhosis Alcohol intoxication (Acute) Lymphadenopathy (Acute) Urinary tract infection (Acute) Gastroparesis Encounter for pre-operative examination Esophageal dysphagia GERD (gastroesophageal reflux disease) COPD exacerbation (Acute) Pneumonitis Scrotal abscess Pancytopenia (Acute) Urinary frequency Nocturia Metabolic encephalopathy Overdose Urinary tract infection (Acute) Hyperammonemia Electrolyte abnormality Hyponatremia RODRIGO (acute kidney injury) Opioid use disorder Prolonged QT interval GERD (gastroesophageal reflux disease) RODRIGO (acute kidney injury) (Acute) Overdose (Acute) Hyperammonemia (Acute) Dehydration (Acute) Hypoxia Encephalopathy (Acute) Abdominal distension Acute hepatitis Hypokalemia COVID-19 Lower extremity edema Hypomagnesemia (Acute) Hypoxia (Acute) Anasarca (Acute) Candidiasis of mouth and esophagus Colon cancer screening Anxiety Hepatitis C no treatment as of yet Hypertension Medical History Cellulitis Pulmonary edema Elevated lactic acid level Urinary retention Acute hyperkalemia Lumbar vertebral fracture 06/2022, fall at home, hospitalzied at [facility] for 2 weeks; no sx. History of recent hospitalization d/c from [place] 12/11/22 psychiatric reasons. Anxiety/depression. Controlled at current. Lyme borreliosis Elevated bilirubin Compression fracture of L4 vertebra Vitamin D deficiency Closed compression fracture of L1 vertebra Alcohol abuse, in remission Venous stasis dermatitis Cirrhosis Abdominal ascites Pancytopenia Type 2 diabetes mellitus History of heroin abuse quit 2017 Gastroparesis Nocturnal hypoxia per pt, prescribed home O2 @ 2 LPM qHS and PRN daily in past but unable to obtain as of late r/t financial struggles. admits to using sister's oxygen at night when able. current: 2.5 L oxygen HS. Dysphagia on occasion Fibromyalgia History of kidney stones GERD (gastroesophageal reflux disease) DM type 2 (diabetes mellitus, type 2) IDDM/no inuslin use over past 2 weeks/blood sugars have been running around 100 - pt monitors. Bagel Maker is aware and has nova with pcp on December 14 2022. PTSD (post-traumatic stress disorder) History of migraine History of DVT (deep vein thrombosis) "few years ago" LLE -- unk etiology -- per pt, no treatment at time of dx Hyperlipidemia Sleep apnea non compliant with CPAP COPD (chronic obstructive pulmonary disease) rare res inh use Alcoholic cirrhosis of liver Rib fracture years ago, healed, no current fractures AAA (abdominal aortic aneurysm) per pt, last evaluated 6 mo ago [facility] or [facility]? "around 5 cm" -->says was referred to vascular surgery but no appt as of yet Surgical History History of abdominal paracentesis S/P excisional debridement LLE History of colonoscopy History of ear surgery as a child History of tonsillectomy History of tooth extraction History of esophagogastroduodenoscopy (EGD) Family History Other No family history of adverse response to anesthesia No significant medical problems Social History Smoking Status: Current every day smoker Tobacco Type: Cigarettes Cigarettes Per Day: 1/2 pack per day; Second Hand Exposure: No; Do You Dip or Chew Tobacco: No; Hx Alcohol Use: No (pt states he "stopped drinking about a year ago") Hx Substance Use: No Preferred Language: Maltese Communication Ability: Effective Visual Impairment: Limited Machining Technician Required: No Beliefs That Will Affect Care: Anabaptist Anabaptist Beliefs: advent marital status: Single Current Living Situation: Alone Current Living Situation Comment: prison apartments-independently How many Children do You have: 0 Feels Safe at Home: Yes Assistive Devices: Cane, Denture - Upper, Denture - Lower, Glasses, Oxygen - Continuous and Walker Allergies Allergies Allergy/AdvReac Type Severity Reaction Status Date / Time No Known Allergies Allergy Verified 11/20/23 12:07 Home Meds Home Medications Medication Instructions Recorded Confirmed buprenorphine HCl 8 mg sublingual 8 mg sublingual QAM 03/30/22 11/20/23 tablet gabapentin 800 mg tablet 800 mg PO TID 06/12/22 11/20/23 buprenorphine HCl 8 mg sublingual 16 mg sublingual QPM 04/27/23 11/20/23 tablet fluoxetine 20 mg tablet 20 mg PO DAILY 11/06/23 11/20/23 spironolactone 100 mg tablet 100 mg PO DAILY 11/06/23 11/20/23 acetaminophen 325 mg tablet 650 mg PO Q4 PRN Fever Or Pain 11/20/23 11/20/23 (Tylenol) furosemide 40 mg tablet (Lasix) 40 mg PO BID 11/20/23 11/20/23 insulin glargine 100 unit/mL (3 12 unit subcut HS 11/20/23 11/20/23 mL) subcutaneous pen (Basaglar KwikPen U-100 Insulin) nicotine 14 mg/24 hr daily 1 patch transdermal DAILY 11/20/23 11/20/23 transdermal patch Previous Rx's Medication Instructions Recorded lactulose 20 gram/30 mL oral 20 g (30 mL) PO TID #60 mL 04/21/22 solution diclofenac sodium 1 % topical gel 4 g EXT QID PRN back pain #1 tube 07/18/22 (Voltaren Arthritis Pain) omeprazole 40 mg capsule,delayed 40 mg PO QAM #30 caps 07/18/22 release amoxicillin 875 mg-potassium 1 tab PO BIDM 5 days #10 tabs 11/16/23 clavulanate 125 mg tablet Results & Data (ED) Vital Signs Vital Signs - 24 hr 11/20/23 09:58 11/20/23 09:58 11/20/23 10:00 Pulse Rate Pulse Rate [Finger] Pulse Rate from SpO2 Sensor 95 H Pulse Rhythm Pulse Rhythm [Finger] Pulse Strength Pulse Strength [Finger] Respiratory Rate 24 Respiratory Effort / Characteristics Respiratory Depth Respiratory Pattern Blood Pressure 110/70 110/70 Blood Pressure [Left Arm] Blood Pressure Mean 76 76 Blood Pressure Mean [Left Arm] Blood Pressure Position Blood Pressure Position [Left Arm] Pulse Oximetry 94 Oxygen Delivery Method Oxygen Flow Rate Sepsis Recent Fever Within 48 Hours Sepsis New/Unexplained Change in Mental Status Sepsis Action Taken by Nursing 11/20/23 10:06 11/20/23 10:08 11/20/23 10:10 Pulse Rate 96 H 94 H Pulse Rate [Finger] 110 H Pulse Rate from SpO2 Sensor Pulse Rhythm Regular Pulse Rhythm [Finger] Regular Pulse Strength Normal Pulse Strength [Finger] Normal Respiratory Rate 18 20 Respiratory Effort / Characteristics Non-Labored Non-Labored Spontaneous Respiratory Depth Normal Normal Respiratory Pattern Regular Regular Blood Pressure 110/70 Blood Pressure [Left Arm] 110/70 Blood Pressure Mean 83 Blood Pressure Mean [Left Arm] 83 Blood Pressure Position Lying Blood Pressure Position [Left Arm] Lying Pulse Oximetry 93 93 Oxygen Delivery Method Nasal Cannula Room Air Oxygen Flow Rate 2 Sepsis Recent Fever Within 48 Hours No Sepsis New/Unexplained Change in Mental Status N/A Sepsis Action Taken by Nursing No Action Required 11/20/23 10:33 11/20/23 10:37 11/20/23 11:00 Pulse Rate 92 H 88 Pulse Rate [Finger] Pulse Rate from SpO2 Sensor 92 H Pulse Rhythm Regular Pulse Rhythm [Finger] Pulse Strength Pulse Strength [Finger] Respiratory Rate 20 15 Respiratory Effort / Characteristics Respiratory Depth Respiratory Pattern Blood Pressure Blood Pressure [Left Arm] Blood Pressure Mean Blood Pressure Mean [Left Arm] Blood Pressure Position Blood Pressure Position [Left Arm] Pulse Oximetry 90 93 Oxygen Delivery Method Nasal Cannula Oxygen Flow Rate 3 Sepsis Recent Fever Within 48 Hours Sepsis New/Unexplained Change in Mental Status Sepsis Action Taken by Nursing 11/20/23 11:42 11/20/23 11:51 11/20/23 12:03 Pulse Rate 91 H 90 Pulse Rate [Finger] 87 Pulse Rate from SpO2 Sensor 89 Pulse Rhythm Pulse Rhythm [Finger] Regular Pulse Strength Pulse Strength [Finger] Normal Respiratory Rate 17 18 17 Respiratory Effort / Characteristics Non-Labored Respiratory Depth Normal Respiratory Pattern Regular Blood Pressure Blood Pressure [Left Arm] 88/57 L Blood Pressure Mean Blood Pressure Mean [Left Arm] 67 Blood Pressure Position Blood Pressure Position [Left Arm] Lying Pulse Oximetry 96 93 Oxygen Delivery Method Nasal Cannula Oxygen Flow Rate Sepsis Recent Fever Within 48 Hours Sepsis New/Unexplained Change in Mental Status Sepsis Action Taken by Nursing 11/20/23 12:06 11/20/23 12:22 11/20/23 12:27 Pulse Rate 96 H Pulse Rate [Finger] Pulse Rate from SpO2 Sensor 99 H Pulse Rhythm Pulse Rhythm [Finger] Pulse Strength Pulse Strength [Finger] Respiratory Rate 16 Respiratory Effort / Characteristics Respiratory Depth Respiratory Pattern Blood Pressure 93/54 L 97/54 L Blood Pressure [Left Arm] Blood Pressure Mean 58 83 Blood Pressure Mean [Left Arm] Blood Pressure Position Blood Pressure Position [Left Arm] Pulse Oximetry 94 Oxygen Delivery Method Oxygen Flow Rate Sepsis Recent Fever Within 48 Hours Sepsis New/Unexplained Change in Mental Status Sepsis Action Taken by Nursing 11/20/23 12:30 11/20/23 12:30 11/20/23 12:30 Pulse Rate 89 Pulse Rate [Finger] Pulse Rate from SpO2 Sensor 91 H Pulse Rhythm Pulse Rhythm [Finger] Pulse Strength Pulse Strength [Finger] Respiratory Rate 18 Respiratory Effort / Characteristics Respiratory Depth Respiratory Pattern Blood Pressure 88/57 L 88/57 L Blood Pressure [Left Arm] Blood Pressure Mean 62 62 Blood Pressure Mean [Left Arm] Blood Pressure Position Blood Pressure Position [Left Arm] Pulse Oximetry 96 Oxygen Delivery Method Oxygen Flow Rate Sepsis Recent Fever Within 48 Hours Sepsis New/Unexplained Change in Mental Status Sepsis Action Taken by Nursing 11/20/23 12:51 11/20/23 12:56 11/20/23 13:00 Pulse Rate 86 Pulse Rate [Finger] 86 Pulse Rate from SpO2 Sensor 88 Pulse Rhythm Pulse Rhythm [Finger] Regular Pulse Strength Pulse Strength [Finger] Normal Respiratory Rate 17 18 Respiratory Effort / Characteristics Non-Labored Respiratory Depth Normal Respiratory Pattern Regular Blood Pressure 98/66 L Blood Pressure [Left Arm] 89/49 L Blood Pressure Mean 76 Blood Pressure Mean [Left Arm] 62 Blood Pressure Position Blood Pressure Position [Left Arm] Pulse Oximetry 95 86 L Oxygen Delivery Method Nasal Cannula Oxygen Flow Rate 3 Sepsis Recent Fever Within 48 Hours Sepsis New/Unexplained Change in Mental Status Sepsis Action Taken by Nursing 11/20/23 13:00 11/20/23 13:00 11/20/23 13:00 Pulse Rate Pulse Rate [Finger] Pulse Rate from SpO2 Sensor Pulse Rhythm Pulse Rhythm [Finger] Pulse Strength Pulse Strength [Finger] Respiratory Rate Respiratory Effort / Characteristics Respiratory Depth Respiratory Pattern Blood Pressure 89/49 L 89/49 L 89/49 L Blood Pressure [Left Arm] Blood Pressure Mean 59 59 59 Blood Pressure Mean [Left Arm] Blood Pressure Position Blood Pressure Position [Left Arm] Pulse Oximetry Oxygen Delivery Method Oxygen Flow Rate Sepsis Recent Fever Within 48 Hours Sepsis New/Unexplained Change in Mental Status Sepsis Action Taken by Nursing 11/20/23 13:09 11/20/23 13:21 11/20/23 13:30 Pulse Rate 87 88 Pulse Rate [Finger] Pulse Rate from SpO2 Sensor 87 88 Pulse Rhythm Pulse Rhythm [Finger] Pulse Strength Pulse Strength [Finger] Respiratory Rate 23 13 Respiratory Effort / Characteristics Respiratory Depth Respiratory Pattern Blood Pressure 107/66 Blood Pressure [Left Arm] Blood Pressure Mean 81 Blood Pressure Mean [Left Arm] Blood Pressure Position Blood Pressure Position [Left Arm] Pulse Oximetry 94 95 Oxygen Delivery Method Oxygen Flow Rate Sepsis Recent Fever Within 48 Hours Sepsis New/Unexplained Change in Mental Status Sepsis Action Taken by Nursing 11/20/23 13:30 11/20/23 13:30 11/20/23 13:39 Pulse Rate 88 Pulse Rate [Finger] Pulse Rate from SpO2 Sensor 88 Pulse Rhythm Pulse Rhythm [Finger] Pulse Strength Pulse Strength [Finger] Respiratory Rate 26 H Respiratory Effort / Characteristics Respiratory Depth Respiratory Pattern Blood Pressure 107/66 107/66 Blood Pressure [Left Arm] Blood Pressure Mean 81 81 Blood Pressure Mean [Left Arm] Blood Pressure Position Blood Pressure Position [Left Arm] Pulse Oximetry 94 Oxygen Delivery Method Oxygen Flow Rate Sepsis Recent Fever Within 48 Hours Sepsis New/Unexplained Change in Mental Status Sepsis Action Taken by Nursing Laboratory Data 11/20/23 10:29 11/20/23 10:29 Lab Results 11/20/23 11/20/23 11/20/23 Range/Units 10:29 10:33 12:23 WBC 15.14 H (4.8-10.8) K/ul RBC 3.03 L (4.70-6.10) M/uL Hgb 9.9 L (14.0-18.0) g/dl POC Hgb 11.2 L (14.0-18.0) g/dl Hct 28.1 L (42.0-52.0) % POC Hct 33 L (42-52) % MCV 92.7 (80.0-100.0) fL MCH 32.7 (25.0-34.0) pg MCHC 35.2 (32.0-36.0) g/dL RDW Std Deviation 71.3 H (36.4-46.3) fL RDW Coeff of Nabeel 21.5 H (11.5-14.5) % Plt Count 62 L (130-400) K/uL MPV 10.3 (9.4-12.4) fL Immature Gran % (Auto) 1.9 % Neut % (Auto) 78.6 % Lymph % (Auto) 9.5 % Becker % (Auto) 8.1 % Eos % (Auto) 1.6 % Baso % (Auto) 0.3 % Neut # (Auto) 11.89 H (1.40-6.50) K/uL Lymph # (Auto) 1.44 (1.20-3.40) K/uL Becker # (Auto) 1.23 H (0.11-0.59) K/uL Eos # (Auto) 0.24 (0.00-0.50) K/uL Baso # (Auto) 0.05 (0.00-0.20) K/uL Immature Gran # (Auto) 0.29 H (0.01-0.20) K/uL Polychromasia 1+ Macrocytosis Present Echinocytes 2+ Acanthocytes (Spur) 1+ PT 22.1 H (9.0-12.0) Seconds INR 2.2 H (0.9-1.1) APTT 45 H (21-31) Seconds PTT Ratio 1.7 POC Sodium 126 L (135-144) mmol/L Sodium 122 L (136-145) mmol/L POC Potassium 5.0 (3.3-5.0) mmol/L Potassium 4.8 (3.5-5.1) mmol/L POC Chloride 100 L (101-112) mmol/L Chloride 99 (98-107) mmol/L Carbon Dioxide 18 L (21-32) mmol/L POC Total CO2 16 L (24-31) mmol/L Anion Gap 5 (3-11) POC Anion Gap 16.0 (16-25) mmol/L POC BUN 48 H (7-18) mg/dl BUN 58 H (6-23) mg/dl Creatinine 2.53 H (0.6-1.4) mg/dl POC Creatinine 2.9 H (0.6-1.3) mg/dl Est Cr Clr Drug Dosing 43.7 ml/min Est GFR ( Amer) 30.7 ml/min Est GFR (Non-Af Amer) 26.5 ml/min BUN/Creatinine Ratio 22.9 H (10-20) Glucose 150 H (70-99(Fasting)) mg/dl POC Glucose (other) 151 H (70-99) mg/dl Lactate 2.5 H* 1.7 (0.4-2.0) mmol/L Calcium 8.5 L (8.6-10.3) mg/dl POC Ioniz Calcium Karen 1.20 (1.12-1.32) mmol/l Magnesium 1.7 (1.7-2.4) mg/dl Total Bilirubin 7.0 H (0.2-1.0) mg/dl Direct Bilirubin 4.1 H (0-0.2) mg/dl AST 33 (13-39) U/L ALT 12 (7-52) U/L Alkaline Phosphatase 89 (34-104) U/L Ammonia 39.0 (18-72) umol/L Troponin I High Sens 5.8 (0-20) pg/ml Total Protein 6.3 (6.0-8.3) gm/dl Albumin 2.2 L (3.4-5.0) gm/dl Procalcitonin 0.52 H (0-0.5) ng/ml Urine Color Urine Appearance (Clear) Urine pH (4.5-7.5) Ur Specific Baxley (1.000-1.030) Urine Protein (Negative) Urine Glucose (UA) (Negative) Urine Ketones (Negative) Urine Blood (Negative) Urine Nitrite (Negative) Urine Bilirubin (Negative) Urine Urobilinogen (Negative) Ur Leukocyte Esterase (Negative) Urine WBC (Auto) (0-5) /hpf Urine RBC (Auto) (0-2) /hpf U Hyaline Cast (Auto) (0-2) /lpf U Epithel Cells (Auto) (0-2) /hpf Urine Bacteria (Auto) (None Seen) Adenovirus (PCR) (NotDetected) B. pertussis DNA (PCR) (NotDetected) B.parapertussis DNA PCR (NotDetected) C. pneumoniae DNA (PCR) (NotDetected) Coronavirus OC43 (PCR) (NotDetected) Coronavirus HKU1 (PCR) (NotDetected) Coronavirus 229E (PCR) (NotDetected) SARS-CoV-2 (PCR) (NotDetected) Coronavirus NL63 (PCR) (NotDetected) Human Metapneumovir PCR (NotDetected) Influenza Type A (PCR) (NotDetected) Influenza Type B (PCR) (NotDetected) M. pneumoniae (PCR) (NotDetected) Parainfluenza 1 (PCR) (NotDetected) Parainfluenza 2 (PCR) (NotDetected) Parainfluenza 3 (PCR) (NotDetected) Parainfluenza 4 (PCR) (NotDetected) RSV (PCR) (NotDetected) Entero/Rhino (PCR) (NotDetected) 11/20/23 11/20/23 Range/Units 12:50 Unknown WBC (4.8-10.8) K/ul RBC (4.70-6.10) M/uL Hgb (14.0-18.0) g/dl POC Hgb (14.0-18.0) g/dl Hct (42.0-52.0) % POC Hct (42-52) % MCV (80.0-100.0) fL MCH (25.0-34.0) pg MCHC (32.0-36.0) g/dL RDW Std Deviation (36.4-46.3) fL RDW Coeff of Nabeel (11.5-14.5) % Plt Count (130-400) K/uL MPV (9.4-12.4) fL Immature Gran % (Auto) % Neut % (Auto) % Lymph % (Auto) % Becker % (Auto) % Eos % (Auto) % Baso % (Auto) % Neut # (Auto) (1.40-6.50) K/uL Lymph # (Auto) (1.20-3.40) K/uL Becker # (Auto) (0.11-0.59) K/uL Eos # (Auto) (0.00-0.50) K/uL Baso # (Auto) (0.00-0.20) K/uL Immature Gran # (Auto) (0.01-0.20) K/uL Polychromasia Macrocytosis Echinocytes Acanthocytes (Spur) PT (9.0-12.0) Seconds INR (0.9-1.1) APTT (21-31) Seconds PTT Ratio POC Sodium (135-144) mmol/L Sodium (136-145) mmol/L POC Potassium (3.3-5.0) mmol/L Potassium (3.5-5.1) mmol/L POC Chloride (101-112) mmol/L Chloride (98-107) mmol/L Carbon Dioxide (21-32) mmol/L POC Total CO2 (24-31) mmol/L Anion Gap (3-11) POC Anion Gap (16-25) mmol/L POC BUN (7-18) mg/dl BUN (6-23) mg/dl Creatinine (0.6-1.4) mg/dl POC Creatinine (0.6-1.3) mg/dl Est Cr Clr Drug Dosing ml/min Est GFR ( Amer) ml/min Est GFR (Non-Af Amer) ml/min BUN/Creatinine Ratio (10-20) Glucose (70-99(Fasting)) mg/dl POC Glucose (other) (70-99) mg/dl Lactate (0.4-2.0) mmol/L Calcium (8.6-10.3) mg/dl POC Ioniz Calcium Karen (1.12-1.32) mmol/l Magnesium (1.7-2.4) mg/dl Total Bilirubin (0.2-1.0) mg/dl Direct Bilirubin (0-0.2) mg/dl AST (13-39) U/L ALT (7-52) U/L Alkaline Phosphatase (34-104) U/L Ammonia (18-72) umol/L Troponin I High Sens (0-20) pg/ml Total Protein (6.0-8.3) gm/dl Albumin (3.4-5.0) gm/dl Procalcitonin (0-0.5) ng/ml Urine Color Dark Yellow Urine Appearance Clear (Clear) Urine pH 5.5 (4.5-7.5) Ur Specific Baxley 1.015 (1.000-1.030) Urine Protein Negative (Negative) Urine Glucose (UA) Negative (Negative) Urine Ketones Negative (Negative) Urine Blood 2+ H (Negative) Urine Nitrite Negative (Negative) Urine Bilirubin Negative (Negative) Urine Urobilinogen Negative (Negative) Ur Leukocyte Esterase Negative (Negative) Urine WBC (Auto) 0-5 (0-5) /hpf Urine RBC (Auto) 6-10 H (0-2) /hpf U Hyaline Cast (Auto) 3-5 H (0-2) /lpf U Epithel Cells (Auto) 0-2 (0-2) /hpf Urine Bacteria (Auto) None Seen (None Seen) Adenovirus (PCR) Not Detected (NotDetected) B. pertussis DNA (PCR) Not Detected (NotDetected) B.parapertussis DNA PCR Not Detected (NotDetected) C. pneumoniae DNA (PCR) Not Detected (NotDetected) Coronavirus OC43 (PCR) Not Detected (NotDetected) Coronavirus HKU1 (PCR) Not Detected (NotDetected) Coronavirus 229E (PCR) Not Detected (NotDetected) SARS-CoV-2 (PCR) Not Detected (NotDetected) Coronavirus NL63 (PCR) Not Detected (NotDetected) Human Metapneumovir PCR Not Detected (NotDetected) Influenza Type A (PCR) Not Detected (NotDetected) Influenza Type B (PCR) Not Detected (NotDetected) M. pneumoniae (PCR) Not Detected (NotDetected) Parainfluenza 1 (PCR) Not Detected (NotDetected) Parainfluenza 2 (PCR) Not Detected (NotDetected) Parainfluenza 3 (PCR) Not Detected (NotDetected) Parainfluenza 4 (PCR) Not Detected (NotDetected) RSV (PCR) Not Detected (NotDetected) Entero/Rhino (PCR) Not Detected (NotDetected) Administered Medications Albumin Human (Albumin 25%) 25 gm in 100 mls @ 50 mls/hr IV ONE ONE Stop: 11/20/23 14:50 Last Admin: 11/20/23 13:09 Dose: 50 mls/hr Documented By: JESSE Discontinued Medications Piperacillin Sod/Tazobactam (Sod 4.5 gm/ Dextrose) 100 mls @ 200 mls/hr IV NOW ONE; Protocol Stop: 11/20/23 10:36 Last Infusion: 11/20/23 13:01 Dose: Infused Documented By: Admin: 11/20/23 12:30 Dose: 200 mls/hr Documented By: JESSE Imaging Data Radiologist's Impression: Chest X-Ray 11/20/23 10:06 XR chest 1V portable HISTORY: Sepsis COMPARISON: Chest 11/06/2023. FINDINGS: No pneumothorax. No pleural effusions. The cardiac silhouette is borderline enlarged. This remains unchanged. A right jugular central venous catheter terminates at the distal SVC. No acute fractures. There are low lung volumes. Diffuse interstitial thickening is again noted. Hazy airspace opacity within the right lung apex has slightly progressed. This suggests progressive mild pulmonary edema. Left basilar densities again noted. IMPRESSION: 1. Interval progression of mild pulmonary edema. 2. Left basilar airspace opacities are again noted and likely represents a pneumonia. 3. Right jugular central venous catheter terminates in the distal SVC. No pneumothorax. ACT 112: Negative or not required by law. Electronically signed by: James Lemus M.D. 11/20/2023 12:17 PM Abdomen/Pelvis CT 11/20/23 11:59 CT OF THE ABDOMEN AND PELVIS WITHOUT CONTRAST CLINICAL HISTORY: Abdominal pain. COMPARISON STUDY: CT of the abdomen and pelvis November 06, 2023. TECHNIQUE: Axial images of the abdomen and pelvis were obtained without IV contrast. Images were reviewed in the axial, sagittal, and coronal planes. Automated exposure control was utilized for the study. A dose lowering technique was utilized adhering to the principles of ALARA. FINDINGS: Body wall edema has significantly increased when compared to CT of November 06, 2023. Moderate left lower lobe airspace opacity with volume loss has slightly increased. Patchy groundglass opacities within the right upper and middle lobes have developed. A few small airspace opacities within the right lower lobe are present. There is no pneumatosis, free air or portal venous gas. Evaluation of the abdomen and pelvis is suboptimal on this unenhanced exam. The liver is cirrhotic. Sensitivity for detection of hepatic lesions is diminished on unenhanced exam but none are identified. Splenomegaly is again noted. Large volume ascites has slightly increased. Varices are noted. Bilateral renal calculi measure up to 8 mm. There is no hydronephrosis. There are no ureteral calculi. There are gallstones within the gallbladder. Gallbladder distention has resolved. The adrenal glands and pancreas are unremarkable. There is no biliary or pancreatic ductal dilatation. There is no evidence for a bowel obstruction. The bladder is distended. There is ascites within the umbilical hernia. No fluid collections are present. Mild bilateral inguinal lymph nodes remain unchanged. The appendix is normal. IMPRESSION: 1. Cirrhotic liver. Splenomegaly, varices and large volume ascites indicative of portal hypertension. 2. No bowel obstruction. 3. Significant increase in body wall edema. 4. Bilateral nephrolithiasis. No ureteral calculi or hydronephrosis. 5. Multifocal groundglass opacities within the right lung suggestive of pneumonia. Left lower lobe opacity could reflect pneumonia or atelectasis. 6. Cholelithiasis. Interval resolution of gallbladder distention. ACT 112: Negative or not required by law. Electronically signed by: Remi Hernandez M.D. 11/20/2023 12:39 PM Discharge Plan Visit Data Chief Complaint: Abnormal Labs/Diagnostic Testing Stated Complaint: ABNORMAL LABS ED Provider: Lencho Jade Discharge Problem: Acute hyponatremia, RODRIGO (acute kidney injury), Acidosis, Elevated lactic acid level, Pneumonia Forms Stand Alone Forms: [facility] Prescriptions Prescriptions: No Action gabapentin 800 mg tablet 800 mg PO TID diclofenac sodium [Voltaren Arthritis Pain] 1 % Gel 4 g EXT QID PRN (Reason: back pain) Qty: 1 0RF Rx Instructions: purchase [id number] omeprazole 40 mg capsule,delayed release(DR/EC) 40 mg PO QAM Qty: 30 1RF buprenorphine HCl 8 mg tablet, sublingual 8 mg SUBLINGUAL QAM lactulose 20 gram/30 mL Solution 20 g PO TID Qty: 60 0RF Patient Comments: haven't been taking three times a day/usually take once or twice a day Rx Instructions: Pt has been reducing this due to the loose bms buprenorphine HCl 8 mg tablet, sublingual 16 mg SUBLINGUAL QPM acetaminophen [Tylenol] 325 mg Tablet 650 mg PO Q4 PRN (Reason: Fever Or Pain) nicotine 14 mg/24 hr Patch 24 Hour 1 patch TRANSDERMAL DAILY insulin glargine [Basaglar KwikPen U-100 Insulin] 100 unit/mL (3 mL) Insulin Pen 12 unit SUBCUT HS furosemide [Lasix] 40 mg tablet 40 mg PO BID spironolactone 100 mg tablet 100 mg PO DAILY fluoxetine 20 mg tablet 20 mg PO DAILY amoxicillin-pot clavulanate 875-125 mg Tablet 1 tab PO BIDM 5 Days Qty: 10 0RF Rx Instructions: End 11/21/23 after 0900 dose. Referrals Referrals: Ina Hearn CRNP [Primary Care Provider] - Discharge Problem: Pneumonia Qualifiers: Pneumonia type: due to unspecified organism Laterality: unspecified laterality Lung location: unspecified part of lung Qualified Code(s): J18.9 - Pneumonia, unspecified organism
[2023-11-20 10:45] LABS: iSTAT Creatinine 2.9 mg/dl (0.6-1.3); iSTAT Hemoglobin 11.2 g/dl (14.0-18.0); iSTAT Ionized Calcium 1.2 mmol/l (1.12-1.32)
[2023-11-20 11:06] LABS: Hematocrit (blood only) 28.1 % (42.0-52.0); Hemoglobin 9.9 g/dl (14.0-18.0); INR 2.2 (0.9-1.1); Mean Corpuscular Hemoglobin 32.7 pg (25.0-34.0); Mean Corpuscular Hgb Conc 35.2 g/dL (32.0-36.0); Mean Corpuscular Volume 92.7 fL (80.0-100.0); Mean Platelet Volume 10.3 fL (9.4-12.4); Partial Thromboplastin Ratio 1.7; Partial Thromboplastin Time 45 Seconds (21-31); Platelet Count 62 K/uL (130-400); Prothrombin Time 22.1 Seconds (9.0-12.0); RDW Coefficient of Variation 21.5 % (11.5-14.5); RDW Standard Deviation 71.3 fL (36.4-46.3); Red Blood Count 3.03 M/uL (4.70-6.10); White Blood Count 15.14 K/ul (4.8-10.8)
[2023-11-20 11:13] LABS: Albumin Level 2.2 gm/dl (3.4-5.0); BUN Creatinine Ratio 22.9 (10-20); Bilirubin Direct 4.1 mg/dl (0-0.2); Calcium 8.5 mg/dl (8.6-10.3); Creatinine Clr Calc Pharmacy 43.7 ml/min; Est GFR (African American) 30.7 ml/min; Est GFR (Non-African American) 26.5 ml/min; Magnesium 1.7 mg/dl (1.7-2.4); Potassium 4.8 mmol/L (3.5-5.1); Total Protein 6.3 gm/dl (6.0-8.3)
[2023-11-20 11:19] LABS: Troponin I High Sensitivity 5.8 pg/ml (0-20)
[2023-11-20 11:35] LABS: Acanthocytes 1+; Basophils # (auto) 0.05 K/uL (0.00-0.20); Basophils % (auto) 0.3 %; Echinocytes 2+; Eosinophils # (auto) 0.24 K/uL (0.00-0.50); Eosinophils % (auto) 1.6 %; Immature Granulocytes # (auto) 0.29 K/uL (0.01-0.20); Immature Granulocytes % (auto) 1.9 %; Lymphocytes # (auto) 1.44 K/uL (1.20-3.40); Lymphocytes % (auto) 9.5 %; Macrocytosis Present; Monocytes # (auto) 1.23 K/uL (0.11-0.59); Monocytes % (auto) 8.1 %; Neutrophils # (auto) 11.89 K/uL (1.40-6.50); Neutrophils % (auto) 78.6 %; Polychromasia 1+
[2023-11-20 11:55] LABS: Adenovirus PCR Not Detected (NotDetected); Bordetella parapertussis PCR Not Detected (NotDetected); Bordetella pertussis PCR Not Detected (NotDetected); Chlamydia pneumoniae PCR Not Detected (NotDetected); Coronavirus 229E PCR Not Detected (NotDetected); Coronavirus CoV-2 (COVID19)PCR Not Detected (NotDetected); Coronavirus HKU1 PCR Not Detected (NotDetected); Coronavirus NL63 PCR Not Detected (NotDetected); Coronavirus OC43PCR Not Detected (NotDetected); Human Metapneumovirus PCR Not Detected (NotDetected); Influenza A PCR Not Detected (NotDetected); Influenza B PCR Not Detected (NotDetected); Mycoplasma pneumoniae PCR Not Detected (NotDetected); Parainfluenza Virus 1 PCR Not Detected (NotDetected); Parainfluenza Virus 2 PCR Not Detected (NotDetected); Parainfluenza Virus 3 PCR Not Detected (NotDetected); Parainfluenza Virus 4 PCR Not Detected (NotDetected); Respiratory Syncytial VirusPCR Not Detected (NotDetected); Rhinovirus/Enterovirus PCR Not Detected (NotDetected)
--- NOTE | 2023-11-20 12:15 | History & Physical Report ---
Date of Service November 20, 2023 Assessment & Plan (1) Abdominal ascites: Plan: Patient return for recurrent abdominal ascites on 11/19 Hx of liver failure Patient reports he is not currently on a transplant list, but coordinating with [facility] Based on presenting labs, MELD Na Score of 35 (estimated 3-month mortality rate of 52.6%) IR paracentesis pending; will plan on 11/20 at 12:30 PM Patient was hypotensive in the ED and started on albumin and midodrine Albumin 25 mg IV q8h Midodrine 2.5 mg TID (titrate up as needed) Hold chemical DVT PPx prior to paracentesis A.m. CBC, CMP, mag (2) RODRIGO (acute kidney injury): Plan: BUN 58, creatinine 2.53 (baseline 0.7), EGFR 26.5 on arrival Likely secondary to urinary retention Robertson placed in the ED; Robertson catheter care QS Urinalysis ordered, pending Avoid nephrotoxic agents for possible (3) Hypotension: Plan: 89/49 in the ED Hold Lasix and spironolactone for now (4) Aspiration pneumonia: Plan: May be residual from last admission However, patient does endorse ongoing SOB at rest and conversational dyspnea Leukocytosis 15.14 on arrival with a neutrophil predominance; was 15.59 at time of discharge on 11/15 Sputum culture on 11/05 grew Staph aureus susceptible to oxacillin Unasyn 3000 mg IV q6h Follow blood cx Dose reduce gabapentin from 800 mg-->400mg TID d/t increased SOB (5) Chronic hypoxic respiratory failure: Plan: Patient is on 3 L NC at baseline Continuous pulse oximetry Supplemental oxygen titration as needed to maintain SpO2 >94% (6) Hyponatremia: Plan: Na 122 on arrival; in the setting of end stage liver disease SIADH labs ordered, pending 1500mL fluid restriction for now Trend BMP q4h (7) Scrotal abscess: Plan: Daily wound care Wound care nurse evaluation appreciated U/S Scrotum ordered, pending (8) Skin lesion of left lower extremity: Plan: Daily wound care Acetaminophen 500mg p.o. q12h for pain; caution overuse and liver failure (9) Petechiae: Plan: New petechiae rash on the hands and feet bilaterally that developed during his previous hospital stay Likely thrombocytopenia petechiae/purpura secondary to liver cirrhosis Patient denies pain or itching Continue to monitor platelets (10) Diabetes: Plan: Last A1c at 5.0% on 11/07/2023 Glucose 150 on admission Dose-reduce basal insulin from 12u --> 6u HS in the setting of RODRIGO and poor oral intake SSI with target range 110-140, CF 50, carb ratio 15 T2DM diet BSG ACHS Monitor for hypoglycemia Adjust regimen as needed (11) Opioid use disorder: Plan: In remission; continue buprenorphine (12) Recovering alcoholic: Plan: Patient denies recent alcohol use within the past few years (13) Chronic hepatitis C with cirrhosis: Plan: Continue lactulose TID (14) Anasarca: (15) Hypoalbuminemia: (16) Thrombocytopenia: (17) Anemia: Plan Disposition: Admit to PCU telemetry Full code T2DM diet (1500mL fluid restriction) VTE PX: Hold chemical DVT PPx in the setting of thrombocytopenia and need for paracentesis; hold mechanical DVT PX given left leg lesion History of Present Illness Chief Complaint: Abnormal labs (elevated WBC and creatinine), and swelling in the abdomen and feet bilaterally Primary Care Provider: SHERINE Mcmahon Chuck is a 62-year-old male with PMH of chronic hepatitis C with cirrhosis, liver failure, HTN, anxiety, anasarca, GERD, opioid use disorder, metabolic encephalopathy, COPD, gastroparesis, alcohol use (in recovery), diabetes, sepsis, and renal failure. He presented via EMS from [facility] for abdominal and bilateral feet swelling on 11/19. He also had an elevated WBC and creatinine on outpatient labs. Recent [facility] discharge on 11/15. At time of this admission, he reports that he feels bloated, and is having pain in his neck, left leg, and testicles. He is unsure when the pain started. History of liver failure with last paracentesis 1.5 weeks ago (on 11/07). Patient was trying to get on the liver transplant list, and is in communication with [facility], but was denied recently from [place]. Patient is a former alcoholic, but reports he quit drinking years ago. He reports he has not been not making much urine lately. He also reports that he has had a significant weight gain over the past month (is usually around 206 pounds, but was recently weighed around 260 pounds). He endorses SOB both at rest and with exertion; it is not worse when he lays flat on his back. The pain in his neck, left leg, and testicles are all constant; he rates them each around 5 or 6 out of 10. Testicular pain is worse with movements. No recent sexual activity. He reports that he has had a blotchy, petechial rash on his hands and feet which developed during his last hospital admission. The rash is not painful or itchy. Patient uses supplemental oxygen at baseline (3L NC). No CPAP at night. Patient is a current everyday tobacco cigarette smoker; 0.5 PPD. He denies any recent alcohol use or recreational drug use. He reports he had 1 pill this morning, but is unsure which pill. Patient's SpO2 is 93% on 3L NC; hypotensive at 89/49 at time of admission. ED course: Zosyn 4.5 g IV Morphine sulfate 4 mg IV ROS: Patient endorses intermittent night-sweats, BOLANOS, abdominal cramping/bloating, neck pain, left leg pain, rash across the hands and feet, SOB at rest (more than usual), wheezing, productive cough (dark yellow), and N/V (last vomited this morning after eating breakfast too quickly). Patient denies fever, chills, dizziness, lightheadedness, changes in vision, pleuritic CP, chest pain, hemoptysis, hematemesis, changes in urinary/bowel habits, burning with urination, dysuria, or blood in the urine/stool. Allergies Allergy/AdvReac Type Severity Reaction Status Date / Time No Known Allergies Allergy Verified 11/20/23 12:07 Home Medications Medication Instructions Recorded Confirmed Type buprenorphine HCl 8 mg sublingual 8 mg sublingual QAM 03/30/22 11/20/23 History tablet lactulose 20 gram/30 mL oral 20 g (30 mL) PO TID #60 mL 04/21/22 11/20/23 Rx solution gabapentin 800 mg tablet 800 mg PO TID 06/12/22 11/20/23 History diclofenac sodium 1 % topical gel 4 g EXT QID PRN back pain #1 tube 07/18/22 11/20/23 Rx (Voltaren Arthritis Pain) omeprazole 40 mg capsule,delayed 40 mg PO QAM #30 caps 07/18/22 11/20/23 Rx release buprenorphine HCl 8 mg sublingual 16 mg sublingual QPM 12/08/23 07/02/24 History tablet fluoxetine 20 mg tablet 20 mg PO DAILY 11/06/23 11/20/23 History spironolactone 100 mg tablet 100 mg PO DAILY 11/06/23 11/20/23 History amoxicillin 875 mg-potassium 1 tab PO BIDM 5 days #10 tabs 11/16/23 11/20/23 Rx clavulanate 125 mg tablet acetaminophen 325 mg tablet 650 mg PO Q4 PRN Fever Or Pain 11/20/23 11/20/23 History (Tylenol) furosemide 40 mg tablet (Lasix) 40 mg PO BID 11/20/23 11/20/23 History insulin glargine 100 unit/mL (3 12 unit subcut HS 11/20/23 11/20/23 History mL) subcutaneous pen (Basaglar KwikPen U-100 Insulin) nicotine 14 mg/24 hr daily 1 patch transdermal DAILY 11/20/23 11/20/23 History transdermal patch Past Med/Surg History Problem List (Updated 11/20/23 @ 14:10 by Lencho Jade DO) Pneumonia (Acute) Elevated lactic acid level (Acute) Acidosis (Acute) RODRIGO (acute kidney injury) (Acute) Acute hyponatremia (Acute) Hepatic failure Hypotension Skin lesion of left lower extremity Abdominal ascites Anemia Petechiae RODRIGO (acute kidney injury) Hypoalbuminemia (Acute) Cirrhosis (Acute) Acute renal failure (Acute) Pneumonia (Acute) Sepsis (Acute) Diabetes Aspiration pneumonia Left leg cellulitis (Acute) Chronic hypoxic respiratory failure Recurrent falls Sepsis Acute hepatic encephalopathy (Acute) Urinary retention Alcoholism Confusion and disorientation Hepatic encephalopathy Thrombocytopenia Bipolar disorder Recovering alcoholic quit November 2019 > brief relapse Mar 2022, was hospitalized [facility], high ammonia levels, once DC'ed from hospital, no more alcohol Chronic hepatitis C with cirrhosis Alcohol intoxication (Acute) Lymphadenopathy (Acute) Urinary tract infection (Acute) Gastroparesis Encounter for pre-operative examination Esophageal dysphagia GERD (gastroesophageal reflux disease) COPD exacerbation (Acute) Pneumonitis Scrotal abscess Pancytopenia (Acute) Urinary frequency Nocturia Metabolic encephalopathy Overdose Urinary tract infection (Acute) Hyperammonemia Electrolyte abnormality Hyponatremia RODRIGO (acute kidney injury) Opioid use disorder Prolonged QT interval GERD (gastroesophageal reflux disease) RODRIGO (acute kidney injury) (Acute) Overdose (Acute) Hyperammonemia (Acute) Dehydration (Acute) Hypoxia Encephalopathy (Acute) Abdominal distension Acute hepatitis Hypokalemia COVID-19 Lower extremity edema Hypomagnesemia (Acute) Hypoxia (Acute) Anasarca (Acute) Candidiasis of mouth and esophagus Colon cancer screening Anxiety Hepatitis C no treatment as of yet Hypertension Medical History Cellulitis Pulmonary edema Elevated lactic acid level Urinary retention Acute hyperkalemia Lumbar vertebral fracture 06/2022, fall at home, hospitalzied at [facility] for 2 weeks; no sx. History of recent hospitalization d/c from [place] 12/11/22 psychiatric reasons. Anxiety/depression. Controlled at current. Lyme borreliosis Elevated bilirubin Compression fracture of L4 vertebra Vitamin D deficiency Closed compression fracture of L1 vertebra Alcohol abuse, in remission Venous stasis dermatitis Cirrhosis Abdominal ascites Pancytopenia Type 2 diabetes mellitus History of heroin abuse quit 2017 Gastroparesis Nocturnal hypoxia per pt, prescribed home O2 @ 2 LPM qHS and PRN daily in past but unable to obtain as of late r/t financial struggles. admits to using sister's oxygen at night when able. current: 2.5 L oxygen HS. Dysphagia on occasion Fibromyalgia History of kidney stones GERD (gastroesophageal reflux disease) DM type 2 (diabetes mellitus, type 2) IDDM/no inuslin use over past 2 weeks/blood sugars have been running around 100 - pt monitors. Keno Attendant is aware and has noav with pcp on December 14 2022. PTSD (post-traumatic stress disorder) History of migraine History of DVT (deep vein thrombosis) "few years ago" LLE -- unk etiology -- per pt, no treatment at time of dx Hyperlipidemia Sleep apnea non compliant with CPAP COPD (chronic obstructive pulmonary disease) rare res inh use Alcoholic cirrhosis of liver Rib fracture years ago, healed, no current fractures AAA (abdominal aortic aneurysm) per pt, last evaluated 6 mo ago [facility] or [facility]? "around 5 cm" -->says was referred to vascular surgery but no appt as of yet Surgical History History of abdominal paracentesis S/P excisional debridement LLE History of colonoscopy History of ear surgery as a child History of tonsillectomy History of tooth extraction History of esophagogastroduodenoscopy (EGD) Family History Other No family history of adverse response to anesthesia No significant medical problems Social History Smoking Status: Current every day smoker Tobacco Type: Cigarettes Cigarettes Per Day: 1/2 pack per day; Second Hand Exposure: No; Do You Dip or Chew Tobacco: No; Hx Alcohol Use: No (pt states he "stopped drinking about a year ago") Hx Substance Use: No Preferred Language: Afghan Communication Ability: Effective Visual Impairment: Limited 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: No Beliefs That Will Affect Care: Jain Jain Beliefs: sabianism marital status: Single Current Living Situation: Alone Current Living Situation Comment: [facility] How many Children do You have: 0 Feels Safe at Home: Yes Assistive Devices: Cane, Denture - Upper, Denture - Lower, Glasses, Oxygen - Continuous and Walker Review of Systems 2 Review of Systems: See HPI above Physical Exam 2 Physical Exam: General: Lethargic; conversational dyspnea; pleasant affect; cooperative; SpO2 96% on 3L NC HEENT: normocephalic, atraumatic; no scleral icterus; PERRLA; dry mucus membrane; vision and hearing grossly intact Neck: supple; no lymphadenopathy; trachea midline Skin: Jaundice; warm, dry without signs of tenting; no cyanosis CV: chest wall NTP; RRR; S1/S2 normal; no murmurs/rubs/gallops; pulses intact and symmetric at radial, DP, and PT Lungs: Mild respiratory distress; conversational dyspnea; symmetrical chest wall expansion; expiratory wheezing and rhonchi auscultated in the lower lung lambert bilaterally ABD: Soft, NTP; BS present; no rebound/guarding; significant ascites and distention of the abdomen; no rashes, lesions, or bruising on the abdomen or flanks MSK: no tics or fasciculations; +1 pitting edema in the LEs noted on the dorsal aspect of the feet and ankles bilaterally : 2 superficial ulcers noted on the lower scrotum; dark yellow urine in robertson bag LLE: Healing lesion noted on the anterior aspect of the left lower extremity (see photo below) Neuro: A&Ox3; normal mood and affect; fluent speech; no focal deficits; sensation grossly intact in the LEs b/l Results & Data Results & Data Vital Signs (Past 12 Hours) Vital Signs Pulse Resp BP Pulse Ox O2 Del Method O2 Flow Rate 11/20/23 10:37 93 Nasal Cannula 3 11/20/23 10:10 94 H 20 110/70 93 Room Air 11/20/23 10:08 96 H Laboratory Results Abnormal lab results 11/20/23 11/20/23 Range/Units 10:29 10:33 WBC 15.14 H (4.8-10.8) K/ul RBC 3.03 L (4.70-6.10) M/uL Hgb 9.9 L (14.0-18.0) g/dl POC Hgb 11.2 L (14.0-18.0) g/dl Hct 28.1 L (42.0-52.0) % POC Hct 33 L (42-52) % RDW Std Deviation 71.3 H (36.4-46.3) fL RDW Coeff of Nabeel 21.5 H (11.5-14.5) % Plt Count 62 L (130-400) K/uL Neut # (Auto) 11.89 H (1.40-6.50) K/uL Wilcox # (Auto) 1.23 H (0.11-0.59) K/uL Immature Gran # (Auto) 0.29 H (0.01-0.20) K/uL PT 22.1 H (9.0-12.0) Seconds INR 2.2 H (0.9-1.1) APTT 45 H (21-31) Seconds POC Sodium 126 L (135-144) mmol/L Sodium 122 L (136-145) mmol/L POC Chloride 100 L (101-112) mmol/L Carbon Dioxide 18 L (21-32) mmol/L POC Total CO2 16 L (24-31) mmol/L POC BUN 48 H (7-18) mg/dl BUN 58 H (6-23) mg/dl Creatinine 2.53 H (0.6-1.4) mg/dl POC Creatinine 2.9 H (0.6-1.3) mg/dl BUN/Creatinine Ratio 22.9 H (10-20) Glucose 150 H (70-99(Fasting)) mg/dl POC Glucose (other) 151 H (70-99) mg/dl Lactate 2.5 H* (0.4-2.0) mmol/L Calcium 8.5 L (8.6-10.3) mg/dl Total Bilirubin 7.0 H (0.2-1.0) mg/dl Direct Bilirubin 4.1 H (0-0.2) mg/dl Albumin 2.2 L (3.4-5.0) gm/dl Procalcitonin 0.52 H (0-0.5) ng/ml Diagnostic Findings Chest X-Ray 11/20/23 10:06 XR chest 1V portable HISTORY: Sepsis COMPARISON: Chest 11/06/2023. FINDINGS: No pneumothorax. No pleural effusions. The cardiac silhouette is borderline enlarged. This remains unchanged. A right jugular central venous catheter terminates at the distal SVC. No acute fractures. There are low lung volumes. Diffuse interstitial thickening is again noted. Hazy airspace opacity within the right lung apex has slightly progressed. This suggests progressive mild pulmonary edema. Left basilar densities again noted. IMPRESSION: 1. Interval progression of mild pulmonary edema. 2. Left basilar airspace opacities are again noted and likely represents a pneumonia. 3. Right jugular central venous catheter terminates in the distal SVC. No pneumothorax. ACT 112: Negative or not required by law. Electronically signed by: James Lemus M.D. 11/20/2023 12:17 PM Abdomen/Pelvis CT 11/20/23 11:59 CT OF THE ABDOMEN AND PELVIS WITHOUT CONTRAST CLINICAL HISTORY: Abdominal pain. COMPARISON STUDY: CT of the abdomen and pelvis November 06, 2023. TECHNIQUE: Axial images of the abdomen and pelvis were obtained without IV contrast. Images were reviewed in the axial, sagittal, and coronal planes. Automated exposure control was utilized for the study. A dose lowering technique was utilized adhering to the principles of ALARA. FINDINGS: Body wall edema has significantly increased when compared to CT of November 06, 2023. Moderate left lower lobe airspace opacity with volume loss has slightly increased. Patchy groundglass opacities within the right upper and middle lobes have developed. A few small airspace opacities within the right lower lobe are present. There is no pneumatosis, free air or portal venous gas. Evaluation of the abdomen and pelvis is suboptimal on this unenhanced exam. The liver is cirrhotic. Sensitivity for detection of hepatic lesions is diminished on unenhanced exam but none are identified. Splenomegaly is again noted. Large volume ascites has slightly increased. Varices are noted. Bilateral renal calculi measure up to 8 mm. There is no hydronephrosis. There are no ureteral calculi. There are gallstones within the gallbladder. Gallbladder distention has resolved. The adrenal glands and pancreas are unremarkable. There is no biliary or pancreatic ductal dilatation. There is no evidence for a bowel obstruction. The bladder is distended. There is ascites within the umbilical hernia. No fluid collections are present. Mild bilateral inguinal lymph nodes remain unchanged. The appendix is normal. IMPRESSION: 1. Cirrhotic liver. Splenomegaly, varices and large volume ascites indicative of portal hypertension. 2. No bowel obstruction. 3. Significant increase in body wall edema. 4. Bilateral nephrolithiasis. No ureteral calculi or hydronephrosis. 5. Multifocal groundglass opacities within the right lung suggestive of pneumonia. Left lower lobe opacity could reflect pneumonia or atelectasis. 6. Cholelithiasis. Interval resolution of gallbladder distention. ACT 112: Negative or not required by law. Electronically signed by: Remi Hernandez M.D. 11/20/2023 12:39 PM ECG Additional Comments: ECG revealed NSR at 92 bpm; QTc 469 Code Status & VTE Plan Code Status Full code VTE Prophylaxis Plan VTE Prophylaxis will be ordered: Yes Supervising Physician Co-Signing Physician Notes Patient was seen and examined in ER, presents with generalized weakness , distended abdomen , lower extremities swelling, no fever, no chest pain , reports SOB, reports lower abdomen pain alcoholic liver cirrhosis, hepatitis C, liver failure , hepatic encephalopathy, chronic hypoxic respiratory failure , opioid use disorder #RODRIGO on CKD st 3 suspect hepatorenal syndrome, has urinary retention , robertson placed monitor BMP enterostomal therapy nurse consulted hold Lasix , Spironolactone # hypotension start albumin # pneumonia IV antibiotics # pancytopenia due to liver cirrosis, no signs of bleeding # ascites paracentesis # hepatic encephalopathy , ammonia level is 35 continue Lactulose # DM type 2 continue insulins, reduce Lantus dose , insulin sliding scale patient is hoping for liver transplant PG Care Time/CCT Total # of Minutes Spent Total Time Spent with Patient: Total time spent is greater than 50% in coordination of care (as documented) at patient's floor/unit and/or counseling patient: Coding [place] [address] INT INP/OBS CARE 3/75MIN Patient Type Established History Comprehensive Exam Comprehensive Medical Decision Making High Complexity Diagnoses Abdominal ascites R18.8 RODRIGO (acute kidney injury) N17.9 Hypotension I95.9 Aspiration pneumonia J69.0 Chronic hypoxic respiratory failure J96.11 Hyponatremia E87.1 Scrotal abscess N49.2 Skin lesion of left lower extremity L98.9 Petechiae R23.3 Diabetes E11.9 Opioid use disorder F11.90 Recovering alcoholic F10.21 Chronic hepatitis C with cirrhosis B18.2; K74.60 Anasarca R60.1 Hypoalbuminemia E88.09 Thrombocytopenia D69.6 Anemia D64.9
--- NOTE | 2023-11-20 12:18 | XRay Report ---
XR chest 1V portable HISTORY: Sepsis COMPARISON: Chest 11/06/2023. FINDINGS: No pneumothorax. No pleural effusions. The cardiac silhouette is borderline enlarged. This remains unchanged. A right jugular central venous catheter terminates at the distal SVC. No acute fra ctures. There are low lung volumes. Diffuse interstitial thickening is again noted. Hazy airspace opa [place] within the right lung apex has slightly progressed. This suggests progressive mild pulmonary faby ma. Left basilar densities again noted. IMPRESSION: 1. Interval progression of mild pulmonary edema. 2. Left basilar airspace opacities are again noted and likely represents a pneumonia. 3. Right jugular central venous catheter terminates in the distal SVC. No pneumothorax. ACT 112: Negative or not required by law. Electronically signed by: James Lemus M.D. 11/20/2023 12:17 PM
[2023-11-20] MEDS: PIPERACILLIN/TAZOBACTAM 4.5 GM in DEXTROSE 5% MINI-B 100 ML IV ONE (12:30)
--- NOTE | 2023-11-20 12:40 | CT Scan Report ---
CT OF THE ABDOMEN AND PELVIS WITHOUT CONTRAST CLINICAL HISTORY: Abdominal pain. COMPARISON STUDY: CT of the abdomen and pelvis November 06, 2023. TECHNIQUE: Axial images of the abdomen and pelvis were obtained without IV contrast. Images were revi ewed in the axial, sagittal, and coronal planes. Automated exposure control was utilized for the delgado dy. A dose lowering technique was utilized adhering to the principles of ALARA. FINDINGS: Body wall edema has significantly increased when compared to CT of November 06, 2023. Moderate left lower lobe airspace opacity with volume loss has slightly increased. Patchy groundglass opacitie s within the right upper and middle lobes have developed. A few small airspace opacities within the r ight lower lobe are present. There is no pneumatosis, free air or portal venous gas. Evaluation of th e abdomen and pelvis is suboptimal on this unenhanced exam. The liver is cirrhotic. Sensitivity for d etection of hepatic lesions is diminished on unenhanced exam but none are identified. Splenomegaly is again noted. Large volume ascites has slightly increased. Varices are noted. Bilateral renal calculi measure up to 8 mm. There is no hydronephrosis. There are no ureteral calculi. There are gallstones within the gallbladder. Gallbladder distention has resolved. The adrenal glands and pancreas are unre markable. There is no biliary or pancreatic ductal dilatation. There is no evidence for a bowel obstr uction. The bladder is distended. There is ascites within the umbilical hernia. No fluid collections are present. Mild bilateral inguinal lymph nodes remain unchanged. The appendix is normal. IMPRESSION: 1. Cirrhotic liver. Splenomegaly, varices and large volume ascites indicative of portal hypertension. 2. No bowel obstruction. 3. Significant increase in body wall edema. 4. Bilateral nephrolithiasis. No ureteral calculi or hydronephrosis. 5. Multifocal groundglass opacities within the right lung suggestive of pneumonia. Left lower lobe op acity could reflect pneumonia or atelectasis. 6. Cholelithiasis. Interval resolution of gallbladder distention. ACT 112: Negative or not required by law. Electronically signed by: Remi Hernandez M.D. 11/20/2023 12:39 PM
[2023-11-20] MEDS ORDERED: ALBUMIN 25% 25 GM/100 ML VIAL IV SCH ×2 (13:00→21:00)
[2023-11-20] MEDS: ALBUMIN 25% 25 GM/100 ML VIAL IV ONE (13:09)
[2023-11-20 13:16] LABS: Appearance Urine Clear (Clear); Bacteria Urine Automated None Seen (None Seen); Bilirubin Urine Negative (Negative); Blood Urine 2+ (Negative); Color Urine Dark Yellow; Epithelial Cell Urine Auto 0-2 /hpf (0-2); Glucose Urine UA Negative (Negative); Ketones Urine Negative (Negative); Leukocyte Esterase Urine Negative (Negative); Nitrite Urine Negative (Negative); Protein Urine Negative (Negative); Specific Gravity Urine 1.015 (1.000-1.030); Urobilinogen Urine Negative (Negative); WBC Urine Automated 0-5 /hpf (0-5); pH Urine 5.5 (4.5-7.5)
--- NOTE | 2023-11-20 13:42 | Critical Care Consultation ---
Date of Consultation November 20, 2023 Assessment & Plan (1) Hepatic failure: (2) Acute renal failure: (3) Cirrhosis: (4) Abdominal ascites: Plan Impression: 62-year-old male with decompensated cirrhosis, renal failure, and potential SBP. He is admitted with abnormal labs and generalized weakness. He was concerned about potential need for pressors however he appears to be maintaining a blood pressure greater than 90 and his lactate has cleared. He has multiple other medical issues which need to be addressed. Recommendations: 1. Decompensated cirrhosis: Agree with plans to pursue paracentesis. Would treat with empiric antibiotics for SBP and get paracentesis with bedside inoculation of blood culture bottles soon as possible. Agree with albumin support at this point in time. The patient's MELD 3.0 score is currently 36 which would give him a about a 40% 90-day survival. It is unlikely that patient is going to be a candidate for lung transplant given other underlying medical comorbidities. GI evaluation and discussion with transplant service may be appropriate. Would recommend 2 g salt restriction diet and temple of diuretics in the form of Lasix and Aldactone to control ascites. If it is refractory, consideration for tertiary referral for TIPS might be appropriate although this has the potential for worsening the patient's underlying encephalopathy. 2. Acute renal failure: Recommend assessing urinalysis and urine electrolytes with calculation of fractional excretion of sodium. Recommend temple of effective circulating volume with albumin and reassessment to see how the patient's kidney function improves. 3. Lactic acidosis: Cleared at the time of my evaluation. Continue supportive care. 4. The patient's oxygen requirement appears to be at his baseline. Review of his CT scan does not demonstrate significant pulmonary infiltrates for which I would be concerned. Supportive care at this point in time and will see how the patient's oxygenation improves with removal of his ascites. While the patient has multiple medical issues, it does not appear that he is far removed from his discharge vital signs and laboratory studies about a week ago. Would recommend proceeding with intervention as noted above. Do not think that currently he requires ICU level care although he certainly has possibility for clinical deterioration. We do not have advanced hepatology available at our facility and should the patient's clinical condition deteriorate, consideration for transfer to higher level of care for potential palliative care would be appropriate. Critical care will sign off. Feel free to contact us with questions or concerns History of Present Illness History of Present Illness Asked by hospitalist to evaluate this patient with liver failure for potential ICU admission. History is obtained from discussion with patient as well as review the electronic medical record. Patient is a 62-year-old male with end-stage liver disease and cirrhosis due to chronic hepatitis C and alcohol abuse as well is opioid addiction. He was just dismissed from the hospital 11/15 to [facility] and was brought back to the emergency room with abdominal pain and bilateral feet swelling. He was found to have outpatient labs showing an increase in serum creatinine and white blood cell count. Last paracentesis was over 10 days ago. In the emergency room patient had repeat labs performed which showed a white blood cell count the same as his discharge white blood cell count with stable hemoglobin and hematocrit and a slightly decrease in the platelet count. INR remained elevated at 2.2. Serum creatinine was 2.5 up from 1.9 at discharge with evidence of ascites on exam and tenderness to palpation. CT of the abdomen showed anasarca with ascites. Patient was ordered to undergo an IR paracentesis. Midodrine and albumin were started in the emergency room. Placed on Unasyn for presumptive aspiration pneumonia. There was concern about potential fulminant hepatic failure although the patient appears reasonably well compensated currently as well as hepatorenal syndrome with the patient is not yet received therapy. His initial lactate was elevated but returned back to normal with serial check in the emergency room. Allergies Allergy/AdvReac Type Severity Reaction Status Date / Time No Known Allergies Allergy Verified 11/20/23 12:07 Home Medications Medication Instructions Recorded Confirmed Type buprenorphine HCl 8 mg sublingual 8 mg sublingual QAM 03/30/22 11/20/23 History tablet lactulose 20 gram/30 mL oral 20 g (30 mL) PO TID #60 mL 04/21/22 11/20/23 Rx solution gabapentin 800 mg tablet 800 mg PO TID 06/12/22 11/20/23 History diclofenac sodium 1 % topical gel 4 g EXT QID PRN back pain #1 tube 07/18/22 11/20/23 Rx (Voltaren Arthritis Pain) omeprazole 40 mg capsule,delayed 40 mg PO QAM #30 caps 07/18/22 11/20/23 Rx release buprenorphine HCl 8 mg sublingual 16 mg sublingual QPM 04/27/23 11/20/23 History tablet fluoxetine 20 mg tablet 20 mg PO DAILY 11/06/23 11/20/23 History spironolactone 100 mg tablet 100 mg PO DAILY 11/06/23 11/20/23 History amoxicillin 875 mg-potassium 1 tab PO BIDM 5 days #10 tabs 11/16/23 11/20/23 Rx clavulanate 125 mg tablet acetaminophen 325 mg tablet 650 mg PO Q4 PRN Fever Or Pain 11/20/23 11/20/23 History (Tylenol) furosemide 40 mg tablet (Lasix) 40 mg PO BID 11/20/23 11/20/23 History insulin glargine 100 unit/mL (3 12 unit subcut HS 11/20/23 11/20/23 History mL) subcutaneous pen (Basaglar KwikPen U-100 Insulin) nicotine 14 mg/24 hr daily 1 patch transdermal DAILY 11/20/23 11/20/23 History transdermal patch Patient History Medical History Cellulitis Pulmonary edema Elevated lactic acid level Urinary retention Acute hyperkalemia Lumbar vertebral fracture 06/2022, fall at home, hospitalzied at [facility] for 2 weeks; no sx. History of recent hospitalization d/c from [place] 12/11/22 psychiatric reasons. Anxiety/depression. Controlled at current. Lyme borreliosis Elevated bilirubin Compression fracture of L4 vertebra Vitamin D deficiency Closed compression fracture of L1 vertebra Alcohol abuse, in remission Venous stasis dermatitis Cirrhosis Abdominal ascites Pancytopenia Type 2 diabetes mellitus History of heroin abuse quit 2017 Gastroparesis Nocturnal hypoxia per pt, prescribed home O2 @ 2 LPM qHS and PRN daily in past but unable to obtain as of late r/t financial struggles. admits to using sister's oxygen at night when able. current: 2.5 L oxygen HS. Dysphagia on occasion Fibromyalgia History of kidney stones GERD (gastroesophageal reflux disease) DM type 2 (diabetes mellitus, type 2) IDDM/no inuslin use over past 2 weeks/blood sugars have been running around 100 - pt monitors. 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 PTSD (post-traumatic stress disorder) History of migraine History of DVT (deep vein thrombosis) "few years ago" LLE -- unk etiology -- per pt, no treatment at time of dx Hyperlipidemia Sleep apnea non compliant with CPAP COPD (chronic obstructive pulmonary disease) rare res inh use Alcoholic cirrhosis of liver Rib fracture years ago, healed, no current fractures AAA (abdominal aortic aneurysm) per pt, last evaluated 6 mo ago [facility] or [facility]? "around 5 cm" -->says was referred to vascular surgery but no appt as of yet Surgical History History of abdominal paracentesis S/P excisional debridement LLE History of colonoscopy History of ear surgery as a child History of tonsillectomy History of tooth extraction History of esophagogastroduodenoscopy (EGD) Family History Other No family history of adverse response to anesthesia No significant medical problems Social History Smoking Status: Current every day smoker Tobacco Type: Cigarettes Cigarettes Per Day: 1/2 pack per day; Second Hand Exposure: No; Do You Dip or Chew Tobacco: No; Hx Alcohol Use: No (pt states he "stopped drinking about a year ago") Hx Substance Use: No Preferred Language: Mohawk Communication Ability: Effective Visual Impairment: Limited Slitter Scorer Required: No Beliefs That Will Affect Care: Orthodoxy Orthodoxy Beliefs: yazidism marital status: Single Current Living Situation: Alone Current Living Situation Comment: detention apartments-independently How many Children do You have: 0 Feels Safe at Home: Yes Assistive Devices: Cane, Denture - Upper, Denture - Lower, Glasses, Oxygen - Continuous and Walker Review of Systems Review of Systems: Please refer to hospitalist H&P. No additions or deletions Physical Exam Constitutional: + ill appearing and + obese; no acute di stress Neck: trachea midline, no thyromegaly Respiratory: no respiratory distress, no labored breathing, no cough and not tachypneic Auscultation: + rhonchi; no wheezes Cardiovascular: Rate/Rhythm: regular rate Heart Sounds: normal S1, normal S2 and + murmur Extremities: + edema Gastrointestinal (Abdomen): Inspection/Auscultation: + abdomen distended Percussion/Palpation: + abdomen tender and + ascites Musculoskeletal: Extremities: extremities normal to inspection Skin: no rashes, warm and dry Neurologic: Nonfocal exam Lymphatic: no cervical lymphadenopathy Results & Data Results & Data Vital Signs (Past 12 Hours) Vital Signs Pulse Pulse Resp BP BP Pulse Ox O2 Del Method 11/20/23 13:00 86 18 89/49 L 86 L Nasal Cannula 11/20/23 11:51 87 18 88/57 L 96 Nasal Cannula 11/20/23 10:37 93 Nasal Cannula 11/20/23 10:10 94 H 20 110/70 93 Room Air 11/20/23 10:08 96 H 11/20/23 10:06 110 H 18 110/70 93 Nasal Cannula O2 Flow Rate 11/20/23 13:00 3 11/20/23 11:51 11/20/23 10:37 3 11/20/23 10:10 11/20/23 10:08 11/20/23 10:06 2 Critical Care Results & Data Vital Signs (Past 12 Hours) Vital Signs Pulse Pulse Resp BP BP Pulse Ox O2 Del Method 11/20/23 13:00 86 18 89/49 L 86 L Nasal Cannula 11/20/23 11:51 87 18 88/57 L 96 Nasal Cannula 11/20/23 10:37 93 Nasal Cannula 11/20/23 10:10 94 H 20 110/70 93 Room Air 11/20/23 10:08 96 H 11/20/23 10:06 110 H 18 110/70 93 Nasal Cannula O2 Flow Rate 11/20/23 13:00 3 11/20/23 11:51 11/20/23 10:37 3 11/20/23 10:10 11/20/23 10:08 11/20/23 10:06 2 Lab & Micro Results (Past 24 Hours) RBC 3.03 M/uL (4.70-6.10) L 11/20/23 WBC 15.14 K/ul (4.8-10.8) H 11/20/23 Hgb 9.9 g/dl (14.0-18.0) L 11/20/23 Hct 28.1 % (42.0-52.0) L 11/20/23 MCV 92.7 fL (80.0-100.0) 11/20/23 MCH 32.7 pg (25.0-34.0) 11/20/23 MCHC 35.2 g/dL (32.0-36.0) 11/20/23 RDW Standard Deviation 71.3 fL (36.4-46.3) H 11/20/23 RDW Coefficient of Variation 21.5 % (11.5-14.5) H 11/20/23 Plt Count 62 K/uL (130-400) L 11/20/23 MPV 10.3 fL (9.4-12.4) 11/20/23 Neutrophils (%) (Auto) 78.6 % 11/20/23 Lymphocytes (%) (Auto) 9.5 % 11/20/23 Monocytes # (Auto) 1.23 K/uL (0.11-0.59) H 11/20/23 Eosinophils # (Auto) 0.24 K/uL (0.00-0.50) 11/20/23 Immature Granulocyte % (Auto) 1.9 % 11/20/23 Neutrophils # (Auto) 11.89 K/uL (1.40-6.50) H 11/20/23 Lymphocytes # (Auto) 1.44 K/uL (1.20-3.40) 11/20/23 Monocytes # (Auto) 1.23 K/uL (0.11-0.59) H 11/20/23 Eosinophils # (Auto) 0.24 K/uL (0.00-0.50) 11/20/23 Basophils # (Auto) 0.05 K/uL (0.00-0.20) 11/20/23 Immature Granulocyte # (Auto) 0.29 K/uL (0.01-0.20) H 11/19 Polychromasia 1+ 11/20/23 Echinocytes 2+ 11/20/23 Macrocytosis Present 11/20/23 Acanthocytes 1+ 11/20/23 Na 122 mmol/L (136-145) L 11/20/23 K 4.8 mmol/L (3.5-5.1) 11/20/23 Cl 99 mmol/L (98-107) 11/20/23 CO2 18 mmol/L (21-32) L 11/20/23 Anion Gap 5 (3-11) 11/20/23 BUN 58 mg/dl (6-23) H 11/20/23 Creatinine 2.53 mg/dl (0.6-1.4) H 11/20/23 Estimated GFR ( Amer) 30.7 ml/min 11/20/23 Estimated GFR (Non-Af Amer) 26.5 ml/min 11/20/23 BUN/Creatinine Ratio 22.9 (10-20) H 11/20/23 Glu 150 mg/dl (70-99(Fasting)) H 11/20/23 Ca 8.5 mg/dl (8.6-10.3) L 11/20/23 Total Bilirubin 7.0 mg/dl (0.2-1.0) H 11/20/23 Direct Bilirubin 4.1 mg/dl (0-0.2) H 11/20/23 AST 33 U/L (13-39) 11/20/23 ALT 12 U/L (7-52) 11/20/23 Alkaline Phosphatase 89 U/L (34-104) 11/20/23 TP 6.3 gm/dl (6.0-8.3) 11/20/23 Albumin 2.2 gm/dl (3.4-5.0) L 11/20/23 Mg 1.7 mg/dl (1.7-2.4) 11/20/23 10:29 Calcium Level 8.5 mg/dl (8.6-10.3) L 11/20/23 10:29 Prothromb Time International Ratio 2.2 (0.9-1.1) H 11/20/23 10 :29 Diagnostic Findings (Past 24 Hours) Chest X-Ray 11/20/23 10:06 XR chest 1V portable HISTORY: Sepsis COMPARISON: Chest 11/06/2023. FINDINGS: No pneumothorax. No pleural effusions. The cardiac silhouette is borderline enlarged. This remains unchanged. A right jugular central venous catheter terminates at the distal SVC. No acute fractures. There are low lung volumes. Diffuse interstitial thickening is again noted. Hazy airspace opacity within the right lung apex has slightly progressed. This suggests progressive mild pulmonary edema. Left basilar densities again noted. IMPRESSION: 1. Interval progression of mild pulmonary edema. 2. Left basilar airspace opacities are again noted and likely represents a pneumonia. 3. Right jugular central venous catheter terminates in the distal SVC. No pn eumothorax. ACT 112: Negative or not required by law. Electronically signed by: James Lemus M.D. 11/20/2023 12:17 PM Abdomen/Pelvis CT 11/20/23 11:59 CT OF THE ABDOMEN AND PELVIS WITHOUT CONTRAST CLINICAL HISTORY: Abdominal pain. COMPARISON STUDY: CT of the abdomen and pelvis November 06, 2023. TECHNIQUE: Axial images of the abdomen and pelvis were obtained without IV contrast. Images were reviewed in the axial, sagittal, and coronal planes. Automated exposure control was utilized for the study. A dose lowering technique was utilized adhering to the principles of ALARA. FINDINGS: Body wall edema has significantly increased when compared to CT of November 06, 2023. Moderate left lower lobe airspace opacity with volume loss has slightly increased. Patchy groundglass opacities within the right upper and middle lobes have developed. A few small airspace opacities within the right lower lobe are present. There is no pneumatosis, free air or portal venous gas. Evaluation of the abdomen and pelvis is suboptimal on this unenhanced exam. The liver is cirrhotic. Sensitivity for detection of hepatic lesions is diminished on unenhanced exam but none are identified. Splenomegaly is again noted. Large volume ascites has slightly increased. Varices are noted. Bilateral renal calculi measure up to 8 mm. There is no hydronephrosis. There are no ureteral calculi. There are gallstones within the gallbladder. Gallbladder distention has resolved. The adrenal glands and pancreas are unremarkable. There is no biliary or pancreatic ductal dilatation. There is no evidence for a bowel obstruction. The bladder is distended. There is ascites within the umbilical hernia. No fluid collections are present. Mild bilateral inguinal lymph nodes remain unchanged. The appendix is normal. IMPRESSION: 1. Cirrhotic liver. Splenomegaly, varices and large volume ascites indicative of portal hypertension. 2. No bowel obstruction. 3. Significant increase in body wall edema. 4. Bilateral nephrolithiasis. No ureteral calculi or hydronephrosis. 5. Multifocal groundglass opacities within the right lung suggestive of pneumonia. Left lower lobe opacity could reflect pneumonia or atelectasis. 6. Cholelithiasis. Interval resolution of gallbladder distention. ACT 112: Negative or not required by law. Electronically signed by: Remi Hernandez M.D. 11/20/2023 12:39 PM I & O Totals 24 Hours 11/19/23 11/20/23 11/21/23 06:59 06:59 06:59 Intake Total 100 / 100 Output Total 600 / 600 Balance -500 / -500 Cumulative 11/20/23 09:41 thru 11/20/23 13:01 Intake Total 100 Output Total 600 Balance -500 RT Ventilator Mngmt (Last Documented) Ventilator Ordered Settings Respiratory Rate 18 11/20/23 13:00 Ventilator - PT Measurements Respiratory Rate 18 Coding Level of Care Code 84153 IN/OBS CONSULT LVL 4,60M Diagnoses Hepatic failure K72.90 Acute renal failure N17.9 Acute renal failure type: unspecified Cirrhosis K74.60; R18.8 Ascites presence: with ascites Hepatic cirrhosis type: unspecified hepatic cirrhosis Abdominal ascites R18.8 (2) Acute renal failure Acute renal failure type: unspecified Qualified Code(s): N17.9 - Acute kidney failure, unspecified (3) Cirrhosis Ascites presence: with ascites Hepatic cirrhosis type: unspecified hepatic cirrhosis Qualified Code(s): K74.60 - Unspecified cirrhosis of liver; R18.8 - Other ascites
[2023-11-20] MEDS ORDERED: DICLOFENAC SOD 1% GEL 100 GM TUBE EXT PRN (14:24)
[2023-11-20] MEDS ORDERED: GLUCAGON FOR INJ 1 MG VIAL SQ PRN (14:24)
[2023-11-20] MEDS ORDERED: ONDANSETRON INJ 2 MG/ML 2 ML VIAL IV PRN (14:24)
[2023-11-20] MEDS ORDERED: DEXTROSE 50% 50 ML SYRINGE IV PRN (14:24)
[2023-11-20] MEDS ORDERED: GLUCOSE 40% GEL 15 GM TUBE PO PRN (14:24)
[2023-11-20] MEDS ORDERED: GLUCOSE 10 TAB/TUBE PO PRN (14:24)
[2023-11-20] MEDS ORDERED: CARBOHYDRATES FOR HYPOGLYCEMIA PO PRN (14:24)
[2023-11-20] MEDS ORDERED: MoRPHine SULFATE 2 MG/ML CARP IV PRN (14:33)
[2023-11-20] MEDS: FUROSEMIDE 40 MG/4 ML VIAL IV ONE (15:11)
[2023-11-20] MEDS: GABAPENTIN 400 MG CAP PO SCH (15:12)
--- NOTE | 2023-11-20 15:31 | Nephrology Consultation ---
Date of Consultation November 20, 2023 Assessment & Plan (1) RODRIGO (acute kidney injury): (2) Acute hyponatremia: (3) Hepatic failure: (4) Acidosis: (5) Abdominal ascites: (6) Anemia: (7) Hypoalbuminemia: Plan 62-year-old gentleman with end-stage liver disease, diabetes, bipolar disorder admitted with worsening ascites, leukocytosis, RODRIGO and hyponatremia. Last paracentesis was on 11/15 for 4 L. Lab was notable for sodium 126 creatinine 2.9 and bicarb 18. Urinalysis with microscopic hematuria but no proteinuria. Renal imaging otherwise unremarkable except nonobstructing nephrolithiasis. Has been persistently hypotensive since admission. RODRIGO most likely secondary to type I hepatorenal syndrome with rapid worsening of kidney function with multiple electrolyte abnormality, although prerenal etiology with hypotension, hypoalbuminemia and repeated paracentesis remains. -- Would recommend treating for hepatorenal syndrome with IV albumin, octreotide and midodrine. Continue albumin 50 g daily, start on octreotide 100 mcg subcu every 8 hours, increase midodrine to 5 mg 3 times a day -- Check serum sodium this afternoon and continue to monitor renal function electrolytes daily -- Considering significant scrotal edema and ascites, recommend to continue Lasix although there is high risk for further worsening of kidney function -- Start on sodium bicarbonate 650 mg twice a day -- Accurate intake and output Thank you for allowing me to participate in your patient's care. History of Present Illness Reason for Consultation: RODRIGO, hyponatremia, ascites, ESLD Attending Physician: Puja Adkins MD History of Present Illness Mr. Chuck Gonzalez is a 62-year-old male with PMH of ESLD with h/o chronic hepatitis C, cirrhosis, GERD, opioid use disorder, metabolic encephalopathy, COPD, gastroparesis, alcohol use (in recovery), diabetes, admitted with worsening ascites, scrotal edema, RODRIGO and hyponatremia. Nephrology consult requested for management of above. EMR records were reviewed in detail during patients visit. Chuck presented via EMS from [facility] for worsening abdominal ascites and LE edema as well as leukocytosis, RODRIGO and hyponatremia on outpatient lab. WBC and creatinine on outpatient labs. He was recently admitted to hospital and discharged on 11/16/2023. He had paracentesis for 4 L on the day of discharge. However since discharge he has been noticing progressive worsening of volume status with ascites, lower extremity edema, feeling bloated as well as scrotal swelling. Admission lab was notable for WBC of 15, lactate was initially mildly elevated but repeat was normal. Creatinine was 2.9, sodium 126, bicarb 16. Urinalysis with no proteinuria but noted to have microscopic hematuria with 5-10 RBC/HPF.CT abdomen pelvis showed bilateral otherwise normal kidney with nonobstructing nephrolithiasis up to 5 mm, no postrenal obstruction. He received Zosyn and now continued on Unasyn. Received total 50 g of albumin and on midodrine 2.5 mg 3 times a day. Has been on Lasix 40 mg daily and spironolactone 100 mg daily. History of alcohol less now recovered. Current active smoker, smokes about half pack per day. No known family history of CKD or ESKD. Has history of end-stage liver disease with history of alcoholism, hepatitis C and cirrhosis. MELD score 36, he was following with [facility] but not a candidate for liver transplant at this time. Has been getting paracentesis for significant ascites and portal hypertension, last paracentesis was 11/16/2019 4.4 L. Patient uses supplemental oxygen at baseline (3L NC). Had RODRIGO during last hospitalization, creatinine was 1.9 which improved to 1.0 but again prior to discharge creatinine was 1.8-1.9 mg/dl. He was awake, alert and oriented however he reported he that he has been having difficulty remembering things. Reports shortness of breath when sitting up. Allergies Allergy/AdvReac Type Severity Reaction Status Date / Time No Known Allergies Allergy Verified 11/20/23 12:07 Home Medications Medication Instructions Recorded Confirmed Type buprenorphine HCl 8 mg sublingual 8 mg sublingual QAM 03/30/22 11/20/23 History tablet lactulose 20 gram/30 mL oral 20 g (30 mL) PO TID #60 mL 04/21/22 11/20/23 Rx solution gabapentin 800 mg tablet 800 mg PO TID 06/12/22 11/20/23 History diclofenac sodium 1 % topical gel 4 g EXT QID PRN back pain #1 tube 07/18/22 11/20/23 Rx (Voltaren Arthritis Pain) omeprazole 40 mg capsule,delayed 40 mg PO QAM #30 caps 07/18/22 11/20/23 Rx release buprenorphine HCl 8 mg sublingual 16 mg sublingual QPM 04/27/23 11/20/23 History tablet fluoxetine 20 mg tablet 20 mg PO DAILY 11/06/23 11/20/23 History spironolactone 100 mg tablet 100 mg PO DAILY 11/06/23 11/20/23 History amoxicillin 875 mg-potassium 1 tab PO BIDM 5 days #10 tabs 11/16/23 11/20/23 Rx clavulanate 125 mg tablet acetaminophen 325 mg tablet 650 mg PO Q4 PRN Fever Or Pain 11/20/23 11/20/23 History (Tylenol) furosemide 40 mg tablet (Lasix) 40 mg PO BID 11/20/23 11/20/23 History insulin glargine 100 unit/mL (3 12 unit subcut HS 11/20/23 11/20/23 History mL) subcutaneous pen (Basaglar KwikPen U-100 Insulin) nicotine 14 mg/24 hr daily 1 patch transdermal DAILY 11/20/23 11/20/23 History transdermal patch Patient History Medical History Cellulitis Pulmonary edema Elevated lactic acid level Urinary retention Acute hyperkalemia Lumbar vertebral fracture 06/2022, fall at home, hospitalzied at [facility] for 2 weeks; no sx. History of recent hospitalization d/c from [place] 12/11/22 psychiatric reasons. Anxiety/depression. Controlled at current. Lyme borreliosis Elevated bilirubin Compression fracture of L4 vertebra Vitamin D deficiency Closed compression fracture of L1 vertebra Alcohol abuse, in remission Venous stasis dermatitis Cirrhosis Abdominal ascites Pancytopenia Type 2 diabetes mellitus History of heroin abuse quit 2017 Gastroparesis Nocturnal hypoxia per pt, prescribed home O2 @ 2 LPM qHS and PRN daily in past but unable to obtain as of late r/t financial struggles. admits to using sister's oxygen at night when able. current: 2.5 L oxygen HS. Dysphagia on occasion Fibromyalgia History of kidney stones GERD (gastroesophageal reflux disease) DM type 2 (diabetes mellitus, type 2) IDDM/no inuslin use over past 2 weeks/blood sugars have been running around 100 - pt monitors. [employer] is aware and has nova with pcp on December 14 2022. PTSD (post-traumatic stress disorder) History of migraine History of DVT (deep vein thrombosis) "few years ago" LLE -- unk etiology -- per pt, no treatment at time of dx Hyperlipidemia Sleep apnea non compliant with CPAP COPD (chronic obstructive pulmonary disease) rare res inh use Alcoholic cirrhosis of liver Rib fracture years ago, healed, no current fractures AAA (abdominal aortic aneurysm) per pt, last evaluated 6 mo ago [facility] or [facility]? "around 5 cm" -->says was referred to vascular surgery but no appt as of yet Surgical History History of abdominal paracentesis S/P excisional debridement LLE History of colonoscopy History of ear surgery as a child History of tonsillectomy History of tooth extraction History of esophagogastroduodenoscopy (EGD) Family History Other No family history of adverse response to anesthesia No significant medical problems Social History Smoking Status: Current every day smoker Tobacco Type: Cigarettes Cigarettes Per Day: 1/2 pack per day; Second Hand Exposure: No; Do You Dip or Chew Tobacco: No; Hx Alcohol Use: No (pt states he "stopped drinking about a year ago") Hx Substance Use: No Preferred Language: Croatian Communication Ability: Effective Visual Impairment: Limited [place]ucl[place] Operator Required: No Beliefs That Will Affect Care: Zoroastrianism Zoroastrianism Beliefs: presybeterian marital status: Single Current Living Situation: Alone Current Living Situation Comment: longterm apartments-independently How many Children do You have: 0 Feels Safe at Home: Yes Assistive Devices: Cane, Denture - Upper, Denture - Lower, Glasses, Oxygen - Continuous and Walker Review of Systems Review of Systems: All systems reviewed & are unremarkable except as noted in Subjective Physical Exam Constitutional: WD/WN, vitals as above + ill appearing and + edematous; no acute distress Neck: normal visual inspection Respiratory: no respiratory distress and no cough Auscultation: + crackles; no wheezes Cardiovascular: Rate/Rhythm: regular rate and regular rhythm Heart Sounds: normal S1 and normal S2 Extremities: + edema Gastrointestinal (Abdomen): Inspection/Auscultation: + abdomen distended, normal bowel sounds and + abdominal edema Percussion/Palpation: abdomen soft; abdomen nontender Musculoskeletal: Extremities: extremities normal to inspection Skin: + rash, + jaundice and + ecchymosis Neurologic: no focal motor deficits and not confused Psychiatric: Orientation: alert and oriented x 3 Affect: euthymic affect Genitourinary: Scrotal edema and erythema. Results & Data Vital Signs (Past 12 Hours) Vital Signs Temp Pulse Pulse Resp BP BP Pulse Ox 11/20/23 14:24 36.4 C L 85 18 109/66 93 11/20/23 14:11 11/20/23 13:39 88 26 H 94 11/20/23 13:30 107/66 11/20/23 13:30 107/66 11/20/23 13:30 107/66 11/20/23 13:21 88 13 95 11/20/23 13:09 87 23 94 11/20/23 13:00 89/49 L 11/20/23 13:00 89/49 L 11/20/23 13:00 89/49 L 11/20/23 13:00 86 18 89/49 L 86 L 11/20/23 12:56 98/66 L 11/20/23 12:51 86 17 95 11/20/23 12:30 89 18 96 11/20/23 12:30 88/57 L 11/20/23 12:30 88/57 L 11/20/23 12:27 97/54 L 11/20/23 12:22 93/54 L 11/20/23 12:06 96 H 16 94 11/20/23 12:03 90 17 93 11/20/23 11:51 87 18 88/57 L 96 11/20/23 11:42 91 H 17 11/20/23 11:00 88 15 11/20/23 10:37 93 11/20/23 10:33 92 H 20 90 11/20/23 10:10 94 H 20 110/70 93 11/20/23 10:08 96 H 11/20/23 10:06 110 H 18 110/70 93 11/20/23 10:00 24 94 11/20/23 09:58 110/70 11/20/23 09:58 110/70 O2 Del Method O2 Flow Rate 11/20/23 14:24 Nasal Cannula 2 11/20/23 14:11 Nasal Cannula 2 11/20/23 13:39 11/20/23 13:30 11/20/23 13:30 11/20/23 13:30 11/20/23 13:21 11/20/23 13:09 11/20/23 13:00 11/20/23 13:00 11/20/23 13:00 11/20/23 13:00 Nasal Cannula 3 11/20/23 12:56 11/20/23 12:51 11/20/23 12:30 11/20/23 12:30 11/20/23 12:30 11/20/23 12:27 11/20/23 12:22 11/20/23 12:06 11/20/23 12:03 11/20/23 11:51 Nasal Cannula 11/20/23 11:42 11/20/23 11:00 11/20/23 10:37 Nasal Cannula 3 11/20/23 10:33 11/20/23 10:10 Room Air 11/20/23 10:08 11/20/23 10:06 Nasal Cannula 2 11/20/23 10:00 11/20/23 09:58 11/20/23 09:58 PG Care Time/CCT Total # of Minutes Spent Total Time Spent with Patient: Total time spent is greater than 50% in coordination of care (as documented) at patient's floor/unit and/or counseling patient: Coding Level of Care Code 71217 INT INP/OBS CARE 3MIN Diagnoses RODRIGO (acute kidney injury) N17.9 Acute hyponatremia E87.1 Hepatic failure K72.90 Acidosis E87.20 Abdominal ascites R18.8 Anemia D64.9 Hypoalbuminemia E88.09
--- NOTE | 2023-11-20 15:56 | Ultrasound Report ---
US scrotum/testicle CLINICAL HISTORY: sepsis TECHNIQUE: Real-time sonographic images of the scrotal contents were obtained. Comparison: Comparison is made to CT abdomen pelvis 11/20/2023 FINDINGS: The right testicle measures 3.2 x 2.4 x 2.2 cm. The left testicle measures 3.1 x 2.0 x 2.[address] stes are uniform in echogenicity bilaterally. Doppler flow is seen bilaterally. Epididymal head cyst measures 0.7 mm. There are no hydroceles. No varicoceles were seen. Severe scrotal edema is seen. IMPRESSION: Severe scrotal edema is seen without testicular abnormality. ACT 112: Negative or not required by law. Electronically signed by: Gerson Betts M.D. 11/20/2023 3:54 PM
[2023-11-20] MEDS: buprenorphine HCL 8 MG SUBL SL STA (16:07)
[2023-11-20] MEDS: LACTULOSE SYRUP 10 GM/15 ML BTL 960 ML PO SCH (16:08)
[2023-11-20] MEDS: MIDODRINE HCL 2.5 MG TAB PO SCH ×2 (16:10→16:57)
[2023-11-20] MEDS: ALBUMIN 25% 25 GM/100 ML VIAL IV SCH (16:34)
[2023-11-20 16:42] LABS: BUN Creatinine Ratio 24.1 (10-20); Calcium 8.2 mg/dl (8.6-10.3); Creatinine Clr Calc Pharmacy 42.3 ml/min; Est GFR (African American) 31.9 ml/min; Est GFR (Non-African American) 27.6 ml/min; Potassium 4.7 mmol/L (3.5-5.1)
[2023-11-20] MEDS: OCTREOTIDE ACETATE 100 MCG/ML VIAL SQ SCH (17:02)
[2023-11-20] MEDS: INSULIN ASPART PER UNIT CHARGE SC SCH (17:54)
[2023-11-20] MEDS: AMPICILLIN/SULBACTAM SOD 3,000 MG in SODIUM CHLOR 0.9% MINI-B 100 ML IV SCH (18:33)
[2023-11-20] MEDS: MoRPHine SULFATE 4 MG/ML 1 ML CARP\\VIAL IV STA (19:30)
[2023-11-20 19:43] LABS: BUN Creatinine Ratio 23.2 (10-20); Calcium 8.3 mg/dl (8.6-10.3); Creatinine Clr Calc Pharmacy 40.8 ml/min; Est GFR (African American) 30.6 ml/min; Est GFR (Non-African American) 26.4 ml/min; Potassium 4.6 mmol/L (3.5-5.1)
--- OUTSIDE RECORDS SUMMARY | 2023-11-20 20:39 | External Medical Summary | Continuity Of Care Document ---
Author Name Unknown Address [address] [place] [address] [facility] ( [facility] VITAL SIGNS Date Time Diastolic blood pressure Systolic blood pressure Body height Body weight Temperature SpO2 Blood Sugar Pulse Respirations 21945 628 24691 5 57.00 mm[Hg] - Lying Down 100.00 mm[Hg] - Lying Down 97.10 Ear 97.10/ min 18.00/min 10174 628 64877 5 61 NI 68493 628 87537 1 71 NI 94967 628 63581 7 260.00 NI 72805 628 10027 6 57.00 mm[Hg] - Sitting 100.00 mm[Hg] - Sitting 97.10 Ear 93.00 % 96.00/ min 18.00/min 14914 628 14440 9 57.00 mm[Hg] - Sitting 100.00 mm[Hg] - Sitting 97.10 Ear 96.00/ min 18.00/min 25421 629 43530 4 64.00 mm[Hg] - Lying Down 105.00 mm[Hg] - Lying Down 98.10 Rectal 101.00 /min 18.00/min 28703 629 65219 7 79231 629 83703 4 64.00 mm[Hg] - Sitting 105.00 mm[Hg] - Sitting 98.10 Ear 91.00 % 101.00 /min 18.00/min 99139 630 27729 0 41.00 mm[Hg] - Sitting 79.00 mm[Hg] - Sitting 98.10 Ear 88.00 % 106.00 /min 20.00/min 76241 630 26465 5 36490 630 36273 0 72.00 mm[Hg] - Sitting 134.00 mm[Hg] - Sitting 98.10 Ear 94.00 % 233.00 mg/dL 111.00 /min 20.00/min
--- OUTSIDE RECORDS SUMMARY | 2023-11-20 20:39 | External Medical Summary | Continuity Of Care Document ---
Author Name Unknown Address [address] [place] [address] Organization [facility] ( ) Care Team Providers Care Escort Blind Name Role Phone Deborah Izquierdo Primary Care Provider [phone] Problems Code Description Start Date End Date Status A41.9 Sepsis, unspecified organism 11/16/20230 000 Active R53.1 Weakness 11/16/2023 Active R29.6 Repeated falls 11/16/2023 Active R18.8 Other ascites 11/16/2023 Active E11.9 Type 2 diabetes mellitus without complications 11/16/2023 Active L03.116 Cellulitis of left lower limb 11/16/2023 Active J69.0 Pneumonitis due to inhalation of food and vomit 11/16/2023 Active J96.11 Chronic respiratory failure with hypoxia 2023 Active E83.42 Hypomagnesemia 11/16/2023 Active B18.2 Chronic viral hepatitis C 11/16/2023 Active K21.9 Gastro-esophageal re flux disease without esophagitis 11/16/2023 Active J44.9 Chronic obstructive pulmonary disease, unspecified 11/16/2023 Active F43.10 Post-traumatic stress disorder, unspecified Active A49.01 Methicillin suscepti ble Staphylococcus aureus infection, unspecified site 11/16/2023 Active VITAL SIGNS Date Time Diastolic blood pressure Systolic blood pressure Body height Body weight Temperature SpO2 Blood Sugar Pulse Respirations 25494 628 53565 5 57.00 mm[Hg] - Lying Down 100.00 mm[Hg] - Lying Down 97.10 Ear 97.10/ min 18.00/min 34135 628 49651 5 61 NI 18626 628 45349 1 71 NI 38972 628 49131 7 260.00 NI 27326 628 75507 6 57.00 mm[Hg] - Sitting 100.00 mm[Hg] - Sitting 97.10 Ear 93.00 % 96.00/ min 18.00/min 48082 628 93152 9 57.00 mm[Hg] - Sitting 100.00 mm[Hg] - Sitting 97.10 Ear 96.00/ min 18.00/min 09100 629 71846 4 64.00 mm[Hg] - Lying Down 105.00 mm[Hg] - Lying Down 98.10 Rectal 101.00 /min 18.00/min 27377 629 53984 7 19352 629 41045 4 64.00 mm[Hg] - Sitting 105.00 mm[Hg] - Sitting 98.10 Ear 91.00 % 101.00 /min 18.00/min 18878 630 36931 0 41.00 mm[Hg] - Sitting 79.00 mm[Hg] - Sitting 98.10 Ear 88.00 % 106.00 /min 20.00/min 82781 630 52020 5 95380 630 63546 0 72.00 mm[Hg] - Sitting 134.00 mm[Hg] - Sitting 98.10 Ear 94.00 % 233.00 mg/dL 111.00 /min 20.00/min 19083 701 56526 5 49.00 mm[Hg] - Sitting 93.00 mm[Hg] - Sitting 96.50 Oral 91.00 % 120.00 mg/dL 102.00 /min 20.00/min
--- OUTSIDE RECORDS SUMMARY | 2023-11-20 20:39 | External Medical Summary | Continuity Of Care Document ---
Author Name Unknown Address [address] [place] [address] Organization [facility] ( ) Care Team Providers Care Dental Hygienist Name Role Phone Deborah Izquierdo Primary Care Provider [phone] Problems Code Description Start Date End Date [...] weight Temperature SpO2 Blood Sugar Pulse Respirations 63375 628 29405 5 57.00 mm[Hg] - Lying Down 100.00 mm[Hg] - Lying Down 97.10 Ear 97.10/ min 18.00/min 83333 628 70137 5 61 NI 43467 628 79739 1 71 NI 87304 628 26145 7 260.00 NI 02154 628 29632 6 57.00 mm[Hg] - Sitting 100.00 mm[Hg] - Sitting 97.10 Ear 93.00 % 96.00/ min 18.00/min 65174 628 29154 9 57.00 mm[Hg] - Sitting 100.00 mm[Hg] - Sitting 97.10 Ear 96.00/ min 18.00/min 38794 629 49692 4 64.00 mm[Hg] - Lying Down 105.00 mm[Hg] - Lying Down 98.10 Rectal 101.00 /min 18.00/min 64645 629 23391 7 24268 629 85133 4 64.00 mm[Hg] - Sitting 105.00 mm[Hg] - Sitting 98.10 Ear 91.00 % 101.00 /min 18.00/min 30415 630 89104 0 41.00 mm[Hg] - Sitting 79.00 mm[Hg] - Sitting 98.10 Ear 88.00 % 106.00 /min 20.00/min 83310 630 19459 5 28015 630 07182 0 72.00 mm[Hg] - Sitting 134.00 mm[Hg] - Sitting 98.10 Ear 94.00 % 233.00 mg/dL 111.00 /min 20.00/min 82202 701 09529 5 49.00 mm[Hg] - Sitting 93.00 mm[Hg] - Sitting 96.50 Oral 91.00 % 120.00 mg/dL 102.00 /min 20.00/min 01529 701 47735 5 261.00 NI
--- OUTSIDE RECORDS SUMMARY | 2023-11-20 20:39 | External Medical Summary | Continuity Of Care Document ---
Author Name Unknown Address [address] [place] [address] [facility] ( [facility] VITAL SIGNS Date Time Diastolic blood pressure Systolic blood pressure Body height Body weight Temperature SpO2 Blood Sugar Pulse Respirations 64510 628 01049 5 57.00 mm[Hg] - Lying Down 100.00 mm[Hg] - Lying Down 97.10 Ear 97.10/ min 18.00/min 22202 628 37373 5 61 NI 95030 628 14920 1 71 NI 75332 628 11700 7 260.00 NI 96937 628 45680 6 57.00 mm[Hg] - Sitting 100.00 mm[Hg] - Sitting 97.10 Ear 93.00 % 96.00/ min 18.00/min 21836 628 92925 9 57.00 mm[Hg] - Sitting 100.00 mm[Hg] - Sitting 97.10 Ear 96.00/ min 18.00/min 14452 629 08254 4 64.00 mm[Hg] - Lying Down 105.00 mm[Hg] - Lying Down 98.10 Rectal 101.00 /min 18.00/min 00180 629 55774 7 40934 629 85289 4 64.00 mm[Hg] - Sitting 105.00 mm[Hg] - Sitting 98.10 Ear 91.00 % 101.00 /min 18.00/min 89321 630 86747 0 41.00 mm[Hg] - Sitting 79.00 mm[Hg] - Sitting 98.10 Ear 88.00 % 106.00 /min 20.00/min 04267 630 10342 5 01266 630 99353 0 72.00 mm[Hg] - Sitting 134.00 mm[Hg] - Sitting 98.10 Ear 94.00 % 233.00 mg/dL 111.00 /min 20.00/min
[2023-11-20] MEDS: buprenorphine HCL 8 MG SUBL SL SCH (21:20)
[2023-11-20] MEDS: LANTUS PER UNIT CHARGE SQ SCH (21:21)
[2023-11-20] MEDS: SODIUM BICARBONATE 650 MG TAB PO SCH (21:21)
[2023-11-20 22:46] LABS: BUN Creatinine Ratio 23.5 (10-20); Calcium 8.3 mg/dl (8.6-10.3); Creatinine Clr Calc Pharmacy 41.2 ml/min; Est GFR (Non-African American) 26.8 ml/min; Potassium 4.4 mmol/L (3.5-5.1)
[2023-11-21] MEDS ORDERED: ACETAMINOPHEN 500 MG TAB PO PRN (01:30)
[2023-11-21] MEDS: cefTRIAXone SODIUM 2,000 MG/50 ML BAG IV SCH (08:58)
[2023-11-21] MEDS: FLUoxetine HCL 20 MG CAP PO SCH (08:58)
[2023-11-21] MEDS: PANTOprazole 40 MG TAB PO SCH (08:58)
[2023-11-21] MEDS: NICOTINE 14 MG/24 HR PATCH TD SCH (08:59)
[2023-11-21] MEDS ORDERED: buprenorphine HCL 8 MG SUBL SL SCH (09:00)
[2023-11-21 09:11] LABS: Basophils # (auto) 0.05 K/uL (0.00-0.20); Basophils % (auto) 0.7 %; Eosinophils # (auto) 0.38 K/uL (0.00-0.50); Eosinophils % (auto) 5.2 %; Hematocrit (blood only) 23.6 % (42.0-52.0); Hemoglobin 8.3 g/dl (14.0-18.0); Immature Granulocytes # (auto) 0.11 K/uL (0.01-0.20); Immature Granulocytes % (auto) 1.5 %; Lymphocytes # (auto) 1.32 K/uL (1.20-3.40); Lymphocytes % (auto) 18.2 %; Mean Corpuscular Hemoglobin 32.7 pg (25.0-34.0); Mean Corpuscular Hgb Conc 35.2 g/dL (32.0-36.0); Mean Corpuscular Volume 92.9 fL (80.0-100.0); Mean Platelet Volume 10.9 fL (9.4-12.4); Monocytes # (auto) 0.86 K/uL (0.11-0.59); Monocytes % (auto) 11.9 %; Neutrophils # (auto) 4.53 K/uL (1.40-6.50); Neutrophils % (auto) 62.5 %; Platelet Count 34 K/uL (130-400); RDW Coefficient of Variation 21.3 % (11.5-14.5); RDW Standard Deviation 70.4 fL (36.4-46.3); Red Blood Count 2.54 M/uL (4.70-6.10); White Blood Count 7.25 K/ul (4.8-10.8)
--- NOTE | 2023-11-21 09:25 | Gastrointestinal Consultation ---
Date of Consultation November 21, 2023 Assessment & Plan (1) Cirrhosis: 62 year old male with history of bipolar disorder, COPD, recovering alcoholic, chronic hepatitis C with cirrhosis, gastroparesis, GERD, esophageal dysphagia, hepatic encephalopathy, hyperammonemia, opiate use disorder, hypertension, deter mined to not be a transplant candidate as per letter on 05/16/2023 due to poor functional status and advanced cardiopulmonary disease from [facility] who was admitted 11/20/23 for weakness and volume overload In the ED he was hypotensive w/ evidence of RODRIGO, he was evaluated by ICU staff and nephrology. Diuresis held, started on therapy for suspected HRS. He was also initiated on IV ABX for SBP coverage, scheduled for paracentesis today. I contacted [facility] transplant center at [phone] at [phone], unless there has been improvement of his functional status and cardiopulmonary disease, he would not be considered a transplant candidate at their center. 1. Volume overload in the setting of worsening renal function - Appreciate nephrology input - Check BNP - Diuresis held - Agree w/ Albumin, Midodrine and Octreotide for suspected HRS - Trend AUTO TUNE UP MECHANIC, electrolytes - Document intake & output - Low NA diet discussed - Defer re-initiation of diuresis to nephrology service 2. Ascites - Last paracentesis 11/16/23 - Diagnostic paracentesis today - No more than 1L given worsening renal function - Send fluid for cell count, culture, cytology, protein/albumin studies - Continue IV ABX for now given report of hypotensions, abd pain in the ED - Low NA diet discussed 3. Anemia w/o signs of GI bleeding - Trend H&H - Monitor and document GI output - Transfuse PRN per primary service - Last EGD in 2020 w/o evidence of esophageal or gastric varices 4. Hepatic encephalopathy, mild asterixis on examination - Continue Lactulose - Add Xifaxan 550 BID 5. Cirrhosis management - Consider referral for transplant evaluation at other tertiary center - MELD labs every 6 months - ABD imaging w/ AFP every 6 months - Due for EGD for varices screening - No ETOH - No NSAIDs - Avoid hepatotoxin - Low NA diet, less than 2G daily - Less than 2G acetaminophen containing products daily Thank you for allowing us to participate in the care of this patient. Please call with any acute changes, questions or concerns. Please see addendum below with additional recommendation from my supervising physician. I spent a total of 90 minutes on the date of service in review of patient's record, and previously obtained information in person and appropriate medical visit, discussion and education of plan, with patient and/or caregiver, placing orders for tests/referral/procedures as medically necessary and documentation of pertinent clinical information in patient's medical records for their visit today. Supervising Physician Co-Signing Physician Notes I examined the patient and reviewed the medical record, laboratory data and imaging studies. I agree with the assessment and plan of care as suggested by the advanced practice provider. Patient with a history of cirrhosis was undergoing decompensation over the last few weeks his INR has markedly elevated as well as his creatinine as well as his bilirubin he was evaluated by nephrology who thought he has hepatorenal syndrome I had a long discussion with the patient to be called [facility] also and they felt that they should be coming in for transplant however the patient is refusing to go to [facility] as stated earlier I discussed in detail with the patient the risk of not going for transplantation at the current time. And the high risk of mortality associated with staying over here however he feels that he wants to just have comfort measures he has been evaluated by palliative care and please refer to their notes as mentioned above he is appears to have gone into hepatorenal syndrome and he has been evaluated by renal agree with renal evaluation of holding diuretics as well as trying octreotide and albumin for his encephalopathy I would give him rifaximin as well as lactulose to have 3-4 bowel movements a day would avoid paracentesis if possible in view of volume depletion but if comfort care has to be done then can have paracentesis for comfort care as per primary team and palliative care Again had a very long discussion with the patient regarding the prospect of very poor prognosis if he does not go to a transplant center and he had been accepted at [facility] but he is refusing to go he is capable of making his decisions and he is awake alert and oriented as the patient is refusing to go there is really not much we can offer at the current time. Except for comfort measures will continue to follow at a distance and please recall if patient changes his mind we will reevaluate him with him in a day or 2 to see if he changes his mind regarding going to [facility] Thank you for allowing us to take part in the care of your patient please recall if patient changes his mind regarding transfer or for more aggressive care History of Present Illness Reason for Consultation: cirrhosis Requesting Physician: Tank Attending Physician: Lala Fu MD History of Present Illness 62 year old male with history of bipolar disorder, COPD, recovering alcoholic, chronic hepatitis C with cirrhosis, gastroparesis, GERD, esophageal dysphagia, hepatic encephalopathy, hyperammonemia, opiate use disorder, hypertension, determined to not be a transplant candidate as per letter on 05/16/2023 due to poor functional status and advanced cardiac disease from [facility] who was admitted 11/20/23 for weakness and volume overload - GI was asked to evaluate for cirrhosis. Events of admission was reviewed. In the ED he was hypotensive w/ evidence of RODRIGO, he was evaluated by ICU staff and nephrology. Diuresis held, started on therapy for suspected HRS. He was also initiated on IV ABX for SBP coverage, scheduled for paracentesis today. Denies abd pain, nausea, vomiting. He is hungry and has a breakfast tray. Denies black or bloody stools or emesis. WBC 7, HGB 8.2, PLT 34, INR 2.2, NA 126, K 4.4, BUN 58, AUTO TUNE UP MECHANIC 2.49, Urine NA 23, Tbili 6.5, AST 25, ALT 9, ALKP 66, Albumin 2.5 Diagnosis: ETOH and HCV cirrhosis, HCV treatment naive, sober from ETOH and IV drug use x years, MELD 35. Decompensations Varices: none on EGD in 2020 Ascites: on imaging, diuretics held due to worsening renal function, last para on 11/15 w/ 4L off w/o fluid studies HRS: urine NA 23, evaluated by nephrology and was started on IV albumin, octreotide and midodrine HE: maintained on Lactulose, asterixis on examination, ammonia 77 --> 39 HCC: noncon CT on 11/19 without liver lesions Screenings: MELD 35 HCC: due in May Varices: overdue for EGD evaluation Immunizations: status unknown CTAP 2023: Cirrhotic liver. Splenomegaly, varices and large volume ascites indicative of portal hypertension. No bowel obstruction.Significant increase in body wall edema.Bilateral nephrolithiasis. No ureteral calculi or hydronephrosis.Multifocal groundglass opacities within the right lung suggestive of pneumonia. Left lower lobe opacity could reflect pneumonia or atelectasis.Cholelithiasis. Interval resolution of gallbladder distention. EGD 2020: - Normal esophagus. - Gastritis. Biopsied. - Normal examined duodenum. Colonoscopy: Preparation of the colon was poor. - Stool in the entire examined colon. - Non-bleeding internal hemorrhoids. - No specimens collected. Allergies Allergy/AdvReac Type Severity Reaction Status Date / Time No Known Allergies Allergy Verified 11/20/23 12:07 Home Medications Medication Instructions Recorded Confirmed Type buprenorphine HCl 8 mg sublingual 8 mg sublingual QAM 03/30/22 11/20/23 History tablet lactulose 20 gram/30 mL oral 20 g (30 mL) PO TID #60 mL 04/21/22 11/20/23 Rx solution gabapentin 800 mg tablet 800 mg PO TID 06/12/22 11/20/23 History diclofenac sodium 1 % topical gel 4 g EXT QID PRN back pain #1 tube 07/18/22 11/20/23 Rx (Voltaren Arthritis Pain) omeprazole 40 mg capsule,delayed 40 mg PO QAM #30 caps 07/18/22 11/20/23 Rx release buprenorphine HCl 8 mg sublingual 16 mg sublingual QPM 04/27/23 11/20/23 History tablet fluoxetine 20 mg tablet 20 mg PO DAILY 11/06/23 11/20/23 History spironolactone 100 mg tablet 100 mg PO DAILY 11/06/23 11/20/23 History amoxicillin 875 mg-potassium 1 tab PO BIDM 5 days #10 tabs 11/16/23 11/20/23 Rx clavulanate 125 mg tablet acetaminophen 325 mg tablet 650 mg PO Q4 PRN Fever Or Pain 11/20/23 11/20/23 History (Tylenol) furosemide 40 mg tablet (Lasix) 40 mg PO BID 11/20/23 11/20/23 History insulin glargine 100 unit/mL (3 12 unit subcut HS 11/20/23 11/20/23 History mL) subcutaneous pen (Basaglar KwikPen U-100 Insulin) nicotine 14 mg/24 hr daily 1 patch transdermal DAILY 11/20/23 11/20/23 History transdermal patch Patient History Medical History Cellulitis Pulmonary edema Elevated lactic acid level Urinary retention Acute hyperkalemia Lumbar vertebral fracture 06/2022, fall at home, hospitalzied at [facility] for 2 weeks; no sx. History of recent hospitalization d/c from [place] 12/11/22 psychiatric reasons. Anxiety/depression. Controlled at current. Lyme borreliosis Elevated bilirubin Compression fracture of L4 vertebra Vitamin D deficiency Closed compression fracture of L1 vertebra Alcohol abuse, in remission Venous stasis dermatitis Cirrhosis Abdominal ascites Pancytopenia Type 2 diabetes mellitus History of heroin abuse quit 2017 Gastroparesis Nocturnal hypoxia per pt, prescribed home O2 @ 2 LPM qHS and PRN daily in past but unable to obtain as of late r/t financial struggles. admits to using sister's oxygen at night when able. current: 2.5 L oxygen HS. Dysphagia on occasion Fibromyalgia History of kidney stones GERD (gastroesophageal reflux disease) DM type 2 (diabetes mellitus, type 2) IDDM/no inuslin use over past 2 weeks/blood sugars have been running around 100 - pt monitors. 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 PTSD (post-traumatic stress disorder) History of migraine History of DVT (deep vein thrombosis) "few years ago" LLE -- unk etiology -- per pt, no treatment at time of dx Hyperlipidemia Sleep apnea non compliant with CPAP COPD (chronic obstructive pulmonary disease) rare res inh use Alcoholic cirrhosis of liver Rib fracture years ago, healed, no current fractures AAA (abdominal aortic aneurysm) per pt, last evaluated 6 mo ago [facility] or [facility]? "around 5 cm" -->says was referred to vascular surgery but no appt as of yet Surgical History History of abdominal paracentesis S/P excisional debridement LLE History of colonoscopy History of ear surgery as a child History of tonsillectomy History of tooth extraction History of esophagogastroduodenoscopy (EGD) Family History Other No family history of adverse response to anesthesia No significant medical problems Social History Smoking Status: Former smoker Tobacco Type: Cigarettes and E-cigarettes / Vaping Cigarettes Per Day: 1/2 pack per day; Second Hand Exposure: Yes; Do You Dip or Chew Tobacco: No; Hx Alcohol Use: No Hx Substance Use: Yes Last Used Substance: Unknown Last Used Substance Other:: denies use since 2018 Substance Use Type Other:: pt takes prescribed subutex Preferred Language: Polish Communication Ability: Effective Visual Impairment: Limited Help Desk Coordinator Required: No Beliefs That Will Affect Care: None marital status: Single Current Living Situation: Rehab Current Living Situation Comment: group home apartments-independently How many Children do You have: 0 Feels Safe at Home: Yes Assistive Devices: Cane, Oxygen - Continuous and Walker Review of Systems Review of Systems: All other findings negative except as noted in HPI. Physical Exam Constitutional: WD/WN, vitals as above Chronically ill appearing male in no acute distress, sitting in bed with breakfast tray Respiratory: normal respiratory effort; no respiratory distress Cardiovascular: Rate/Rhythm: regular rate and regular rhythm + bilateral lower extremity edema Gastrointestinal (Abdomen): Inspection/Auscultation: abdomen normal to inspection and normal bowel sounds Percussion/Palpation: + abdomen tender, abdomen soft and + ascites; no guarding and abdomen not rigid Skin: no rashes, warm and dry + jaundice Results & Data Vital Signs (Past 12 Hours) Vital Signs Temp Pulse Pulse Resp BP Pulse Ox O2 Del Method 11/21/23 07:24 77 11/21/23 07:16 36.3 C L 80 18 103/62 94 Nasal Cannula 11/21/23 02:49 36.3 C L 81 18 101/60 94 Nasal Cannula 11/20/23 23:20 36.4 C L 82 18 104/63 92 Nasal Cannula 11/20/23 22:53 91 H 11/20/23 21:53 Nasal Cannula O2 Flow Rate 11/21/23 07:24 11/21/23 07:16 2 11/21/23 02:49 2 11/20/23 23:20 2 11/20/23 22:53 11/20/23 21:53 2 Laboratory Results 11/21/23 11/21/23 11/20/23 Range/Units 08:51 07:51 Unknown WBC 7.25 (4.8-10.8) K/ul RBC 2.54 L (4.70-6.10) M/uL Hgb 8.3 L (14.0-18.0) g/dl POC Hgb (14.0-18.0) g/dl Hct 23.6 L (42.0-52.0) % POC Hct (42-52) % MCV 92.9 (80.0-100.0) fL MCH 32.7 (25.0-34.0) pg MCHC 35.2 (32.0-36.0) g/dL RDW Std Deviation 70.4 H (36.4-46.3) fL RDW Coeff of Nabeel 21.3 H (11.5-14.5) % Plt Count 34 L (130-400) K/uL MPV 10.9 (9.4-12.4) fL Immature Gran % (Auto) 1.5 % Neut % (Auto) 62.5 % Lymph % (Auto) 18.2 % [place] % (Auto) 11.9 % Eos % (Auto) 5.2 % Baso % (Auto) 0.7 % Neut # (Auto) 4.53 (1.40-6.50) K/uL Lymph # (Auto) 1.32 (1.20-3.40) K/uL [place] # (Auto) 0.86 H (0.11-0.59) K/uL Eos # (Auto) 0.38 (0.00-0.50) K/uL Baso # (Auto) 0.05 (0.00-0.20) K/uL Immature Gran # (Auto) 0.11 (0.01-0.20) K/uL Polychromasia Macrocytosis Echinocytes Acanthocytes (Spur) PT (9.0-12.0) Seconds INR (0.9-1.1) APTT (21-31) Seconds PTT Ratio POC Sodium (135-144) mmol/L Sodium 126 L (136-145) mmol/L POC Potassium (3.3-5.0) mmol/L Potassium 4.4 (3.5-5.1) mmol/L POC Chloride (101-112) mmol/L Chloride 101 (98-107) mmol/L Carbon Dioxide 17 L (21-32) mmol/L POC Total CO2 (24-31) mmol/L Anion Gap 8 (3-11) POC Anion Gap (16-25) mmol/L POC BUN (7-18) mg/dl BUN 58 H (6-23) mg/dl Creatinine 2.49 H (0.6-1.4) mg/dl POC Creatinine (0.6-1.3) mg/dl Est Cr Clr Drug Dosing 42.1 ml/min Est GFR ( Amer) 31.3 ml/min Est GFR (Non-Af Amer) 27.0 ml/min BUN/Creatinine Ratio 23.3 H (10-20) Glucose 90 (70-99(Fasting)) mg/dl POC Glucose 92 (70-99) mg/dl POC Glucose (other) (70-99) mg/dl Osmolality (280-300) mOsm/kg Lactate (0.4-2.0) mmol/L Calcium 8.0 L (8.6-10.3) mg/dl POC Ioniz Calcium Karen (1.12-1.32) mmol/l Magnesium 1.6 L (1.7-2.4) mg/dl Total Bilirubin 6.5 H (0.2-1.0) mg/dl Direct Bilirubin (0-0.2) mg/dl AST 25 (13-39) U/L ALT 9 (7-52) U/L Alkaline Phosphatase 66 (34-104) U/L Ammonia (18-72) umol/L Troponin I High Sens (0-20) pg/ml Total Protein 5.4 L (6.0-8.3) gm/dl Albumin 2.5 L (3.4-5.0) gm/dl Globulin 2.9 (2.5-4.0) gm/dl Albumin/Globulin Ratio 0.9 (0.9-2) Procalcitonin (0-0.5) ng/ml Urine Color Urine Appearance (Clear) Urine pH (4.5-7.5) Ur Specific Emerson (1.000-1.030) Urine Protein (Negative) Urine Glucose (UA) (Negative) Urine Ketones (Negative) Urine Blood (Negative) Urine Nitrite (Negative) Urine Bilirubin (Negative) Urine Urobilinogen (Negative) Ur Leukocyte Esterase (Negative) Urine WBC (Auto) (0-5) /hpf Urine RBC (Auto) (0-2) /hpf U Hyaline Cast (Auto) (0-2) /lpf U Epithel Cells (Auto) (0-2) /hpf Urine Bacteria (Auto) (None Seen) Urine Osmolality (500-800) mOsm/kg Ur Random Sodium mmol/L Adenovirus (PCR) Not Detected (NotDetected) B. pertussis DNA (PCR) Not Detected (NotDetected) B.parapertussis DNA PCR Not Detected (NotDetected) C. pneumoniae DNA (PCR) Not Detected (NotDetected) Coronavirus OC43 (PCR) Not Detected (NotDetected) Coronavirus HKU1 (PCR) Not Detected (NotDetected) Coronavirus 229E (PCR) Not Detected (NotDetected) SARS-CoV-2 (PCR) Not Detected (NotDetected) Coronavirus NL63 (PCR) Not Detected (NotDetected) Human Metapneumovir PCR Not Detected (NotDetected) Influenza Type A (PCR) Not Detected (NotDetected) Influenza Type B (PCR) Not Detected (NotDetected) M. pneumoniae (PCR) Not Detected (NotDetected) Parainfluenza 1 (PCR) Not Detected (NotDetected) Parainfluenza 2 (PCR) Not Detected (NotDetected) Parainfluenza 3 (PCR) Not Detected (NotDetected) Parainfluenza 4 (PCR) Not Detected (NotDetected) RSV (PCR) Not Detected (NotDetected) Entero/Rhino (PCR) Not Detected (NotDetected) 11/20/23 11/20/23 11/20/23 Range/Units 22:09 19:54 19:14 WBC (4.8-10.8) K/ul RBC (4.70-6.10) M/uL Hgb (14.0-18.0) g/dl POC Hgb (14.0-18.0) g/dl Hct (42.0-52.0) % POC Hct (42-52) % MCV (80.0-100.0) fL MCH (25.0-34.0) pg MCHC (32.0-36.0) g/dL RDW Std Deviation (36.4-46.3) fL RDW Coeff of Nabeel (11.5-14.5) % Plt Count (130-400) K/uL MPV (9.4-12.4) fL Immature Gran % (Auto) % Neut % (Auto) % Lymph % (Auto) % [place] % (Auto) % Eos % (Auto) % Baso % (Auto) % Neut # (Auto) (1.40-6.50) K/uL Lymph # (Auto) (1.20-3.40) K/uL [place] # (Auto) (0.11-0.59) K/uL Eos # (Auto) (0.00-0.50) K/uL Baso # (Auto) (0.00-0.20) K/uL Immature Gran # (Auto) (0.01-0.20) K/uL Polychromasia Macrocytosis Echinocytes Acanthocytes (Spur) PT (9.0-12.0) Seconds INR (0.9-1.1) APTT (21-31) Seconds PTT Ratio POC Sodium (135-144) mmol/L Sodium 124 L 124 L (136-145) mmol/L POC Potassium (3.3-5.0) mmol/L Potassium 4.4 4.6 (3.5-5.1) mmol/L POC Chloride (101-112) mmol/L Chloride 100 100 (98-107) mmol/L Carbon Dioxide 18 L 18 L (21-32) mmol/L POC Total CO2 (24-31) mmol/L Anion Gap 6 6 (3-11) POC Anion Gap (16-25) mmol/L POC BUN (7-18) mg/dl BUN 59 H 59 H (6-23) mg/dl Creatinine 2.51 H 2.54 H (0.6-1.4) mg/dl POC Creatinine (0.6-1.3) mg/dl Est Cr Clr Drug Dosing 41.2 40.8 ml/min Est GFR ( Amer) 31.0 30.6 ml/min Est GFR (Non-Af Amer) 26.8 26.4 ml/min BUN/Creatinine Ratio 23.5 H 23.2 H (10-20) Glucose 119 H 139 H (70-99(Fasting)) mg/dl POC Glucose 143 H (70-99) mg/dl POC Glucose (other) (70-99) mg/dl Osmolality (280-300) mOsm/kg Lactate (0.4-2.0) mmol/L Calcium 8.3 L 8.3 L (8.6-10.3) mg/dl POC Ioniz Calcium Karen (1.12-1.32) mmol/l Magnesium (1.7-2.4) mg/dl Total Bilirubin (0.2-1.0) mg/dl Direct Bilirubin (0-0.2) mg/dl AST (13-39) U/L ALT (7-52) U/L Alkaline Phosphatase (34-104) U/L Ammonia (18-72) umol/L Troponin I High Sens (0-20) pg/ml Total Protein (6.0-8.3) gm/dl Albumin (3.4-5.0) gm/dl Globulin (2.5-4.0) gm/dl Albumin/Globulin Ratio (0.9-2) Procalcitonin (0-0.5) ng/ml Urine Color Urine Appearance (Clear) Urine pH (4.5-7.5) Ur Specific Emerson (1.000-1.030) Urine Protein (Negative) Urine Glucose (UA) (Negative) Urine Ketones (Negative) Urine Blood (Negative) Urine Nitrite (Negative) Urine Bilirubin (Negative) Urine Urobilinogen (Negative) Ur Leukocyte Esterase (Negative) Urine WBC (Auto) (0-5) /hpf Urine RBC (Auto) (0-2) /hpf U Hyaline Cast (Auto) (0-2) /lpf U Epithel Cells (Auto) (0-2) /hpf Urine Bacteria (Auto) (None Seen) Urine Osmolality (500-800) mOsm/kg Ur Random Sodium mmol/L Adenovirus (PCR) (NotDetected) B. pertussis DNA (PCR) (NotDetected) B.parapertussis DNA PCR (NotDetected) C. pneumoniae DNA (PCR) (NotDetected) Coronavirus OC43 (PCR) (NotDetected) Coronavirus HKU1 (PCR) (NotDetected) Coronavirus 229E (PCR) (NotDetected) SARS-CoV-2 (PCR) (NotDetected) Coronavirus NL63 (PCR) (NotDetected) Human Metapneumovir PCR (NotDetected) Influenza Type A (PCR) (NotDetected) Influenza Type B (PCR) (NotDetected) M. pneumoniae (PCR) (NotDetected) Parainfluenza 1 (PCR) (NotDetected) Parainfluenza 2 (PCR) (NotDetected) Parainfluenza 3 (PCR) (NotDetected) Parainfluenza 4 (PCR) (NotDetected) RSV (PCR) (NotDetected) Entero/Rhino (PCR) (NotDetected) 11/20/23 11/20/23 11/20/23 Range/Units 17:09 16:06 16:03 WBC (4.8-10.8) K/ul RBC (4.70-6.10) M/uL Hgb (14.0-18.0) g/dl POC Hgb (14.0-18.0) g/dl Hct (42.0-52.0) % POC Hct (42-52) % MCV (80.0-100.0) fL MCH (25.0-34.0) pg MCHC (32.0-36.0) g/dL RDW Std Deviation (36.4-46.3) fL RDW Coeff of Nabeel (11.5-14.5) % Plt Count (130-400) K/uL MPV (9.4-12.4) fL Immature Gran % (Auto) % Neut % (Auto) % Lymph % (Auto) % [place] % (Auto) % Eos % (Auto) % Baso % (Auto) % Neut # (Auto) (1.40-6.50) K/uL Lymph # (Auto) (1.20-3.40) K/uL [place] # (Auto) (0.11-0.59) K/uL Eos # (Auto) (0.00-0.50) K/uL Baso # (Auto) (0.00-0.20) K/uL Immature Gran # (Auto) (0.01-0.20) K/uL Polychromasia Macrocytosis Echinocytes Acanthocytes (Spur) PT (9.0-12.0) Seconds INR (0.9-1.1) APTT (21-31) Seconds PTT Ratio POC Sodium (135-144) mmol/L Sodium 124 L (136-145) mmol/L POC Potassium (3.3-5.0) mmol/L Potassium 4.7 (3.5-5.1) mmol/L POC Chloride (101-112) mmol/L Chloride 100 (98-107) mmol/L Carbon Dioxide 18 L (21-32) mmol/L POC Total CO2 (24-31) mmol/L Anion Gap 6 (3-11) POC Anion Gap (16-25) mmol/L POC BUN (7-18) mg/dl BUN 59 H (6-23) mg/dl Creatinine 2.45 H (0.6-1.4) mg/dl POC Creatinine (0.6-1.3) mg/dl Est Cr Clr Drug Dosing 42.3 ml/min Est GFR ( Amer) 31.9 ml/min Est GFR (Non-Af Amer) 27.6 ml/min BUN/Creatinine Ratio 24.1 H (10-20) Glucose 122 H (70-99(Fasting)) mg/dl POC Glucose 124 H (70-99) mg/dl POC Glucose (other) (70-99) mg/dl Osmolality (280-300) mOsm/kg Lactate (0.4-2.0) mmol/L Calcium 8.2 L (8.6-10.3) mg/dl POC Ioniz Calcium Karen (1.12-1.32) mmol/l Magnesium (1.7-2.4) mg/dl Total Bilirubin (0.2-1.0) mg/dl Direct Bilirubin (0-0.2) mg/dl AST (13-39) U/L ALT (7-52) U/L Alkaline Phosphatase (34-104) U/L Ammonia (18-72) umol/L Troponin I High Sens (0-20) pg/ml Total Protein (6.0-8.3) gm/dl Albumin (3.4-5.0) gm/dl Globulin (2.5-4.0) gm/dl Albumin/Globulin Ratio (0.9-2) Procalcitonin (0-0.5) ng/ml Urine Color Urine Appearance (Clear) Urine pH (4.5-7.5) Ur Specific Emerson (1.000-1.030) Urine Protein (Negative) Urine Glucose (UA) (Negative) Urine Ketones (Negative) Urine Blood (Negative) Urine Nitrite (Negative) Urine Bilirubin (Negative) Urine Urobilinogen (Negative) Ur Leukocyte Esterase (Negative) Urine WBC (Auto) (0-5) /hpf Urine RBC (Auto) (0-2) /hpf U Hyaline Cast (Auto) (0-2) /lpf U Epithel Cells (Auto) (0-2) /hpf Urine Bacteria (Auto) (None Seen) Urine Osmolality 292 L (500-800) mOsm/kg Ur Random Sodium 23 mmol/L Adenovirus (PCR) (NotDetected) B. pertussis DNA (PCR) (NotDetected) B.parapertussis DNA PCR (NotDetected) C. pneumoniae DNA (PCR) (NotDetected) Coronavirus OC43 (PCR) (NotDetected) Coronavirus HKU1 (PCR) (NotDetected) Coronavirus 229E (PCR) (NotDetected) SARS-CoV-2 (PCR) (NotDetected) Coronavirus NL63 (PCR) (NotDetected) Human Metapneumovir PCR (NotDetected) Influenza Type A (PCR) (NotDetected) Influenza Type B (PCR) (NotDetected) M. pneumoniae (PCR) (NotDetected) Parainfluenza 1 (PCR) (NotDetected) Parainfluenza 2 (PCR) (NotDetected) Parainfluenza 3 (PCR) (NotDetected) Parainfluenza 4 (PCR) (NotDetected) RSV (PCR) (NotDetected) Entero/Rhino (PCR) (NotDetected) 11/20/23 11/20/23 11/20/23 Range/Units 12:50 12:23 10:33 WBC (4.8-10.8) K/ul RBC (4.70-6.10) M/uL Hgb (14.0-18.0) g/dl POC Hgb 11.2 L (14.0-18.0) g/dl Hct (42.0-52.0) % POC Hct 33 L (42-52) % MCV (80.0-100.0) fL MCH (25.0-34.0) pg MCHC (32.0-36.0) g/dL RDW Std Deviation (36.4-46.3) fL RDW Coeff of Nabeel (11.5-14.5) % Plt Count (130-400) K/uL MPV (9.4-12.4) fL Immature Gran % (Auto) % Neut % (Auto) % Lymph % (Auto) % [place] % (Auto) % Eos % (Auto) % Baso % (Auto) % Neut # (Auto) (1.40-6.50) K/uL Lymph # (Auto) (1.20-3.40) K/uL [place] # (Auto) (0.11-0.59) K/uL Eos # (Auto) (0.00-0.50) K/uL Baso # (Auto) (0.00-0.20) K/uL Immature Gran # (Auto) (0.01-0.20) K/uL Polychromasia Macrocytosis Echinocytes Acanthocytes (Spur) PT (9.0-12.0) Seconds INR (0.9-1.1) APTT (21-31) Seconds PTT Ratio POC Sodium 126 L (135-144) mmol/L Sodium (136-145) mmol/L POC Potassium 5.0 (3.3-5.0) mmol/L Potassium (3.5-5.1) mmol/L POC Chloride 100 L (101-112) mmol/L Chloride (98-107) mmol/L Carbon Dioxide (21-32) mmol/L POC Total CO2 16 L (24-31) mmol/L Anion Gap (3-11) POC Anion Gap 16.0 (16-25) mmol/L POC BUN 48 H (7-18) mg/dl BUN (6-23) mg/dl Creatinine (0.6-1.4) mg/dl POC Creatinine 2.9 H (0.6-1.3) mg/dl Est Cr Clr Drug Dosing ml/min Est GFR ( Amer) ml/min Est GFR (Non-Af Amer) ml/min BUN/Creatinine Ratio (10-20) Glucose (70-99(Fasting)) mg/dl POC Glucose (70-99) mg/dl POC Glucose (other) 151 H (70-99) mg/dl Osmolality (280-300) mOsm/kg Lactate 1.7 (0.4-2.0) mmol/L Calcium (8.6-10.3) mg/dl POC Ioniz Calcium Karen 1.20 (1.12-1.32) mmol/l Magnesium (1.7-2.4) mg/dl Total Bilirubin (0.2-1.0) mg/dl Direct Bilirubin (0-0.2) mg/dl AST (13-39) U/L ALT (7-52) U/L Alkaline Phosphatase (34-104) U/L Ammonia (18-72) umol/L Troponin I High Sens (0-20) pg/ml Total Protein (6.0-8.3) gm/dl Albumin (3.4-5.0) gm/dl Globulin (2.5-4.0) gm/dl Albumin/Globulin Ratio (0.9-2) Procalcitonin (0-0.5) ng/ml Urine Color Dark Yellow Urine Appearance Clear (Clear) Urine pH 5.5 (4.5-7.5) Ur Specific Emerson 1.015 (1.000-1.030) Urine Protein Negative (Negative) Urine Glucose (UA) Negative (Negative) Urine Ketones Negative (Negative) Urine Blood 2+ H (Negative) Urine Nitrite Negative (Negative) Urine Bilirubin Negative (Negative) Urine Urobilinogen Negative (Negative) Ur Leukocyte Esterase Negative (Negative) Urine WBC (Auto) 0-5 (0-5) /hpf Urine RBC (Auto) 6-10 H (0-2) /hpf U Hyaline Cast (Auto) 3-5 H (0-2) /lpf U Epithel Cells (Auto) 0-2 (0-2) /hpf Urine Bacteria (Auto) None Seen (None Seen) Urine Osmolality (500-800) mOsm/kg Ur Random Sodium mmol/L Adenovirus (PCR) (NotDetected) B. pertussis DNA (PCR) (NotDetected) B.parapertussis DNA PCR (NotDetected) C. pneumoniae DNA (PCR) (NotDetected) Coronavirus OC43 (PCR) (NotDetected) Coronavirus HKU1 (PCR) (NotDetected) Coronavirus 229E (PCR) (NotDetected) SARS-CoV-2 (PCR) (NotDetected) Coronavirus NL63 (PCR) (NotDetected) Human Metapneumovir PCR (NotDetected) Influenza Type A (PCR) (NotDetected) Influenza Type B (PCR) (NotDetected) M. pneumoniae (PCR) (NotDetected) Parainfluenza 1 (PCR) (NotDetected) Parainfluenza 2 (PCR) (NotDetected) Parainfluenza 3 (PCR) (NotDetected) Parainfluenza 4 (PCR) (NotDetected) RSV (PCR) (NotDetected) Entero/Rhino (PCR) (NotDetected) 11/20/23 Range/Units 10:29 WBC 15.14 H (4.8-10.8) K/ul RBC 3.03 L (4.70-6.10) M/uL Hgb 9.9 L (14.0-18.0) g/dl POC Hgb (14.0-18.0) g/dl Hct 28.1 L (42.0-52.0) % POC Hct (42-52) % MCV 92.7 (80.0-100.0) fL MCH 32.7 (25.0-34.0) pg MCHC 35.2 (32.0-36.0) g/dL RDW Std Deviation 71.3 H (36.4-46.3) fL RDW Coeff of Nabeel 21.5 H (11.5-14.5) % Plt Count 62 L (130-400) K/uL MPV 10.3 (9.4-12.4) fL Immature Gran % (Auto) 1.9 % Neut % (Auto) 78.6 % Lymph % (Auto) 9.5 % [place] % (Auto) 8.1 % Eos % (Auto) 1.6 % Baso % (Auto) 0.3 % Neut # (Auto) 11.89 H (1.40-6.50) K/uL Lymph # (Auto) 1.44 (1.20-3.40) K/uL [place] # (Auto) 1.23 H (0.11-0.59) K/uL Eos # (Auto) 0.24 (0.00-0.50) K/uL Baso # (Auto) 0.05 (0.00-0.20) K/uL Immature Gran # (Auto) 0.29 H (0.01-0.20) K/uL Polychromasia 1+ Macrocytosis Present Echinocytes 2+ Acanthocytes (Spur) 1+ PT 22.1 H (9.0-12.0) Seconds INR 2.2 H (0.9-1.1) APTT 45 H (21-31) Seconds PTT Ratio 1.7 POC Sodium (135-144) mmol/L Sodium 122 L (136-145) mmol/L POC Potassium (3.3-5.0) mmol/L Potassium 4.8 (3.5-5.1) mmol/L POC Chloride (101-112) mmol/L Chloride 99 (98-107) mmol/L Carbon Dioxide 18 L (21-32) mmol/L POC Total CO2 (24-31) mmol/L Anion Gap 5 (3-11) POC Anion Gap (16-25) mmol/L POC BUN (7-18) mg/dl BUN 58 H (6-23) mg/dl Creatinine 2.53 H (0.6-1.4) mg/dl POC Creatinine (0.6-1.3) mg/dl Est Cr Clr Drug Dosing 43.7 ml/min Est GFR ( Amer) 30.7 ml/min Est GFR (Non-Af Amer) 26.5 ml/min BUN/Creatinine Ratio 22.9 H (10-20) Glucose 150 H (70-99(Fasting)) mg/dl POC Glucose (70-99) mg/dl POC Glucose (other) (70-99) mg/dl Osmolality 283 (280-300) mOsm/kg Lactate 2.5 H* (0.4-2.0) mmol/L Calcium 8.5 L (8.6-10.3) mg/dl POC Ioniz Calcium Karen (1.12-1.32) mmol/l Magnesium 1.7 (1.7-2.4) mg/dl Total Bilirubin 7.0 H (0.2-1.0) mg/dl Direct Bilirubin 4.1 H (0-0.2) mg/dl AST 33 (13-39) U/L ALT 12 (7-52) U/L Alkaline Phosphatase 89 (34-104) U/L Ammonia 39.0 (18-72) umol/L Troponin I High Sens 5.8 (0-20) pg/ml Total Protein 6.3 (6.0-8.3) gm/dl Albumin 2.2 L (3.4-5.0) gm/dl Globulin (2.5-4.0) gm/dl Albumin/Globulin Ratio (0.9-2) Procalcitonin 0.52 H (0-0.5) ng/ml Urine Color Urine Appearance (Clear) Urine pH (4.5-7.5) Ur Specific Emerson (1.000-1.030) Urine Protein (Negative) Urine Glucose (UA) (Negative) Urine Ketones (Negative) Urine Blood (Negative) Urine Nitrite (Negative) Urine Bilirubin (Negative) Urine Urobilinogen (Negative) Ur Leukocyte Esterase (Negative) Urine WBC (Auto) (0-5) /hpf Urine RBC (Auto) (0-2) /hpf U Hyaline Cast (Auto) (0-2) /lpf U Epithel Cells (Auto) (0-2) /hpf Urine Bacteria (Auto) (None Seen) Urine Osmolality (500-800) mOsm/kg Ur Random Sodium mmol/L Adenovirus (PCR) (NotDetected) B. pertussis DNA (PCR) (NotDetected) B.parapertussis DNA PCR (NotDetected) C. pneumoniae DNA (PCR) (NotDetected) Coronavirus OC43 (PCR) (NotDetected) Coronavirus HKU1 (PCR) (NotDetected) Coronavirus 229E (PCR) (NotDetected) SARS-CoV-2 (PCR) (NotDetected) Coronavirus NL63 (PCR) (NotDetected) Human Metapneumovir PCR (NotDetected) Influenza Type A (PCR) (NotDetected) Influenza Type B (PCR) (NotDetected) M. pneumoniae (PCR) (NotDetected) Parainfluenza 1 (PCR) (NotDetected) Parainfluenza 2 (PCR) (NotDetected) Parainfluenza 3 (PCR) (NotDetected) Parainfluenza 4 (PCR) (NotDetected) RSV (PCR) (NotDetected) Entero/Rhino (PCR) (NotDetected) PG Care Time/CCT Total # of Minutes Spent Total Time Spent with Patient: Total time spent is greater than 50% in coordination of care (as documented) at patient's floor/unit and/or counseling patient: Coding Level of Care Code 80937 INT INP/OBS CARE 3/75MIN Diagnoses Cirrhosis K74.60; R18.8 Ascites presence: with ascites Hepatic cirrhosis type: unspecified hepatic cirrhosis (1) Cirrhosis Ascites presence: with ascites Hepatic cirrhosis type: unspecified hepatic cirrhosis Qualified Code(s): K74.60 - Unspecified cirrhosis of liver; R18.8 - Other ascites
[2023-11-21 09:26] LABS: Albumin Globulin Ratio 0.9 (0.9-2); Albumin Level 2.5 gm/dl (3.4-5.0); BUN Creatinine Ratio 23.3 (10-20); Bilirubin,Total 6.5 mg/dl (0.2-1.0); Creatinine Clr Calc Pharmacy 42.1 ml/min; Est GFR (African American) 31.3 ml/min; Globulin 2.9 gm/dl (2.5-4.0); Magnesium 1.6 mg/dl (1.7-2.4); Potassium 4.4 mmol/L (3.5-5.1); Total Protein 5.4 gm/dl (6.0-8.3)
[2023-11-21 09:46] LABS: Anisocytosis Present; Echinocytes 1+; Polychromasia 2+; Target Cells 1+
--- NOTE | 2023-11-21 10:37 | Nephrology Progress Note ---
Date of Service November 21, 2023 Assessment & Plan (1) RODRIGO (acute kidney injury): (2) Acute hyponatremia: (3) Hepatic failure: (4) Acidosis: (5) Abdominal ascites: (6) Anemia: (7) Hypoalbuminemia: Plan 62-year-old gentleman with end-stage liver disease, diabetes, bipolar disorder admitted with worsening ascites, leukocytosis, RODRIGO and hyponatremia. Last paracentesis was on 11/15 for 4 L. Lab was notable for sodium 126 creatinine 2.9 and bicarb 18. Urinalysis with microscopic hematuria but no proteinuria. Renal imaging otherwise unremarkable except nonobstructing nephrolithiasis. Has been persistently hypotensive since admission. RODRIGO most likely secondary to type I hepatorenal syndrome with rapid worsening of kidney function with multiple electrolyte abnormality, although prerenal etiology with hypotension, hypoalbuminemia and repeated paracentesis remains. --Continue on IV albumin 50 g daily, octreotide 100 mcg subcu every 8 hours, midodrine to 5 mg 3 times a day -- continue to monitor renal function electrolytes daily --Lasix 40 mg IV daily -- Start on sodium bicarbonate 650 mg twice a day -- Accurate intake and output. Admission and Anticipated Discharge Date Admission Date: November 20, 2023 Subjective Zack was seen and evaluated this morning. Clinically remained about the same, denied any specific symptoms but continues to be shaky and edematous. Sodium slightly improved to 126 this morning, kidney function staying relatively stable. Blood pressure slightly improved. Review of Systems Review of Systems: Detailed review of system was done and pertinent positives and negatives are mentioned above. Physical Exam Constitutional: WD/WN, vitals as above + ill appearing and + edematous; no acute distress Neck: normal visual inspection Respiratory: no respiratory distress and no cough Auscultation: + crackles; no wheezes Cardiovascular: Rate/Rhythm: regular rate and regular rhythm Heart Sounds: normal S1 and normal S2 Extremities: + edema Gastrointestinal (Abdomen): Inspection/Auscultation: + abdomen distended, normal bowel sounds and + abdominal edema Percussion/Palpation: abdomen soft; abdomen nontender Musculoskeletal: Extremities: extremities normal to inspection Skin: no rashes, warm and dry + rash, + jaundice and + ecchymosis Neurologic: no focal motor deficits Psychiatric: Orientation: alert and oriented x 3 Affect: euthymic affect Genitourinary: Scrotal edema. Results & Data Vital Signs (Past 12 Hours) Vital Signs Temp Pulse Pulse Resp BP Pulse Ox O2 Del Method 11/21/23 10:27 Nasal Cannula 11/21/23 07:24 77 11/21/23 07:16 36.3 C L 80 18 103/62 94 Nasal Cannula 11/21/23 02:49 36.3 C L 81 18 101/60 94 Nasal Cannula 11/20/23 23:20 36.4 C L 82 18 104/63 92 Nasal Cannula 11/20/23 22:53 91 H O2 Flow Rate 11/21/23 10:27 2 11/21/23 07:24 11/21/23 07:16 2 11/21/23 02:49 2 11/20/23 23:20 2 11/20/23 22:53 PG Care Time/CCT Total # of Minutes Spent Total Time Spent with Patient: Total time spent is greater than 50% in coordination of care (as documented) at patient's floor/unit and/or counseling patient: Coding Level of Care Code 56417 SUB INP/OBS CARE 3/50MIN Diagnoses RODRIGO (acute kidney injury) N17.9 Acute hyponatremia E87.1 Hepatic failure K72.90 Acidosis E87.20 Abdominal ascites R18.8 Anemia D64.9 Hypoalbuminemia E88.09
--- NOTE | 2023-11-21 10:48 | Palliative Care Consultation ---
Date of Consultation November 21, 2023 Assessment & Plan (1) Weakness generalized: (2) Abdominal pain, generalized: (3) Declining performance status: (4) Advanced care planning/counseling discussion: A total of 60 minutes of advance care planning discussion was held with patient and then with patient and his sister. 40 minutes was spent [id number] with patient and 20 minutes was spent telephonically with him and his sister. All are in agreement with transition to a comfort focused plan of care. He recog nizes that his disease is end-stage, he is not a transplant candidate, he does not wish to repursue transplant candidacy, and he wishes to focus on comfort and symptom management. He asked about options for discharge planning and we briefly discussed an option of home with hospice. He tells me he is very familiar with hospice from prior family experiences and understands that he needs to have a caregiver with him. He is unsure that he will be able to have a reliable caregiver support at home. He agrees to discuss this further with his family through the weekend. We discussed the transition to a comfort care plan while here in the hospital, stopping all nonessential medications/interventions/labs. We will assure that he has as needed medication ordered from a symptom management perspective and to assure good relief of any distress he may be experiencing. We will liberalize his diet and allow him to eat and drink for pleasure and comfort. We will see how he does through the weekend. We will reassess on Sunday with a plan for a family meeting at 11 AM on November 22 with me. (5) Counseling regarding advanced directives and goals of care: Plan As above Please note: the above document was generated using voice recognition software. It may contain unintentional grammatical, syntax or spelling errors. Any formal questions or concerns about the content, text or information contained within the body of this dictation should be directly addressed to the provider for clarification. Thank you for allowing us to participate in the ongoing care of this patient. Please page with any additional concerns. Gilson Issa DNP Director, Palliative Medicine History of Present Illness Reason for Consultation: goals of care,decompensated cirrhosis Attending Physician: Lala Fu MD History of Present Illness Chuck is a 62yo male admitted 11/20/23 for weakness and volume overload. In the ED he was hypotensive w/ evidence of RODRIGO, he was evaluated by ICU staff and nephrology. Diuresis held, started on therapy for suspected HRS. He was also initiated on IV ABX for SBP coverage, scheduled for paracentesis today. New petechiae rash on the hands and feet bilaterally that developed during his previous hospital stay. Likely thrombocytopenia petechiae/purpura secondary to liver cirrhosis Chuck has h/o bipolar disorder, COPD, ETOH abuse/in recovery, HCV w/cirrhosis, gastroparesis, GERD, esophageal dysphagia, hepatic encephalopathy, hyperammonemia, opiate use disorder, hypertension. He was evaluated for liver txp candidacy at [facility] and deemed NOT a transplant candidate on 05/16/2023 due to poor functional status and advanced cardiopulmonary disease from [facility]. In further discussion with primary team and his family, Mr. Gonzalez is decided he does not wish to pursue any further aggressive or escalating care. He has declined to transfer to a higher level of care. He does not want to pursue transplantation as he recognizes that he is transitioning to an end-of-life situation. Allergies Allergy/AdvReac Type Severity Reaction Status Date / Time No Known Allergies Allergy Verified 11/20/23 12:07 Home Medications Medication Instructions Recorded Confirmed Type buprenorphine HCl 8 mg sublingual 8 mg sublingual QAM 03/30/22 11/20/23 History tablet lactulose 20 gram/30 mL oral 20 g (30 mL) PO TID #60 mL 04/21/22 11/20/23 Rx solution gabapentin 800 mg tablet 800 mg PO TID 06/12/22 11/20/23 History diclofenac sodium 1 % topical gel 4 g EXT QID PRN back pain #1 tube 07/18/22 11/20/23 Rx (Voltaren Arthritis Pain) omeprazole 40 mg capsule,delayed 40 mg PO QAM #30 caps 07/18/22 11/20/23 Rx release buprenorphine HCl 8 mg sublingual 16 mg sublingual QPM 04/27/23 11/20/23 History tablet fluoxetine 20 mg tablet 20 mg PO DAILY 11/06/23 11/20/23 History spironolactone 100 mg tablet 100 mg PO DAILY 11/06/23 11/20/23 History amoxicillin 875 mg-potassium 1 tab PO BIDM 5 days #10 tabs 11/16/23 11/20/23 Rx clavulanate 125 mg tablet acetaminophen 325 mg tablet 650 mg PO Q4 PRN Fever Or Pain 11/20/23 11/20/23 History (Tylenol) furosemide 40 mg tablet (Lasix) 40 mg PO BID 11/20/23 11/20/23 History insulin glargine 100 unit/mL (3 12 unit subcut HS 11/20/23 11/20/23 History mL) subcutaneous pen (Basaglar KwikPen U-100 Insulin) nicotine 14 mg/24 hr daily 1 patch transdermal DAILY 11/20/23 11/20/23 History transdermal patch Patient History Medical History Cellulitis Pulmonary edema Elevated lactic acid level Urinary retention Acute hyperkalemia Lumbar vertebral fracture 06/2022, fall at home, hospitalzied at [facility] for 2 weeks; no sx. History of recent hospitalization d/c from [facility] 12/11/22 psychiatric reasons. Anxiety/depression. Controlled at current. Lyme borreliosis Elevated bilirubin Compression fracture of L4 vertebra Vitamin D deficiency Closed compression fracture of L1 vertebra Alcohol abuse, in remission Venous stasis dermatitis Cirrhosis Abdominal ascites Pancytopenia Type 2 diabetes mellitus History of heroin abuse quit 2017 Gastroparesis Nocturnal hypoxia per pt, prescribed home O2 @ 2 LPM qHS and PRN daily in past but unable to obtain as of late r/t financial struggles. admits to using sister's oxygen at night when able. current: 2.5 L oxygen HS. Dysphagia on occasion Fibromyalgia History of kidney stones GERD (gastroesophageal reflux disease) DM type 2 (diabetes mellitus, type 2) IDDM/no inuslin use over past 2 weeks/blood sugars have been running around 100 - pt monitors. 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 PTSD (post-traumatic stress disorder) History of migraine History of DVT (deep vein thrombosis) "few years ago" LLE -- unk etiology -- per pt, no treatment at time of dx Hyperlipidemia Sleep apnea non compliant with CPAP COPD (chronic obstructive pulmonary disease) rare res inh use Alcoholic cirrhosis of liver Rib fracture years ago, healed, no current fractures AAA (abdominal aortic aneurysm) per pt, last evaluated 6 mo ago [facility] or [facility]? "around 5 cm" -->says was referred to vascular surgery but no appt as of yet Surgical History History of abdominal paracentesis S/P excisional debridement LLE History of colonoscopy History of ear surgery as a child History of tonsillectomy History of tooth extraction History of esophagogastroduodenoscopy (EGD) Family History Other No family history of adverse response to anesthesia No significant medical problems Social History Smoking Status: Former smoker Tobacco Type: Cigarettes and E-cigarettes / Vaping Cigarettes Per Day: 1/2 pack per day; Second Hand Exposure: Yes; Do You Dip or Chew Tobacco: No; Hx Alcohol Use: No Hx Substance Use: Yes Last Used Substance: Unknown Last Used Substance Other:: denies use since 2018 Substance Use Type Other:: pt takes prescribed subutex Preferred Language: Belizean Communication Ability: Effective Visual Impairment: Limited 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 No acute distress noted. Intermittently tearful through our discussion. Mild bitemporal wasting. PERRLA. EOMI's. Icteric sclera (mild) Neck is supple, no stridor, no gross JVD Anterior lung field exam is diminished overall, very faint crackles, no wheezing. No use of abdominal muscles for respiratory effort, no conversational dyspnea. CVS S1-S2, apical rate is 100. Abdomen distended, tender to palpation, bowel sounds diminished. + Fluid wave. Generalized weakness throughout. + Edema to the bilateral lower extremities. He is awake alert and oriented x 3 but sometimes needs a few moments to compose his thoughts before answering. He seems to have some very mild word location difficulties. Skin is pale but warm. There is generalized jaundice. He has diffuse petechiae and ecchymoses throughout. This is most pronounced over his anterior chest and bilateral upper extremities. Results & Data Vital Signs (Past 12 Hours) Vital Signs Temp Pulse Pulse Resp BP Pulse Ox O2 Del Method 11/21/23 10:27 Nasal Cannula 11/21/23 07:24 77 11/21/23 07:16 36.3 C L 80 18 103/62 94 Nasal Cannula 11/21/23 02:49 36.3 C L 81 18 101/60 94 Nasal Cannula 11/20/23 23:20 36.4 C L 82 18 104/63 92 Nasal Cannula 11/20/23 22:53 91 H O2 Flow Rate 11/21/23 10:27 2 11/21/23 07:24 11/21/23 07:16 2 11/21/23 02:49 2 11/20/23 23:20 2 11/20/23 22:53 Laboratory Results 11/21/23 11/21/23 11/21/23 Range/Units 11:56 08:51 07:51 WBC 7.25 (4.8-10.8) K/ul RBC 2.54 L (4.70-6.10) M/uL Hgb 8.3 L (14.0-18.0) g/dl POC Hgb (14.0-18.0) g/dl Hct 23.6 L (42.0-52.0) % POC Hct (42-52) % MCV 92.9 (80.0-100.0) fL MCH 32.7 (25.0-34.0) pg MCHC 35.2 (32.0-36.0) g/dL RDW Std Deviation 70.4 H (36.4-46.3) fL RDW Coeff of Nabeel 21.3 H (11.5-14.5) % Plt Count 34 L (130-400) K/uL MPV 10.9 (9.4-12.4) fL Immature Gran % (Auto) 1.5 % Neut % (Auto) 62.5 % Lymph % (Auto) 18.2 % Wilson % (Auto) 11.9 % Eos % (Auto) 5.2 % Baso % (Auto) 0.7 % Neut # (Auto) 4.53 (1.40-6.50) K/uL Lymph # (Auto) 1.32 (1.20-3.40) K/uL Wilson # (Auto) 0.86 H (0.11-0.59) K/uL Eos # (Auto) 0.38 (0.00-0.50) K/uL Baso # (Auto) 0.05 (0.00-0.20) K/uL Immature Gran # (Auto) 0.11 (0.01-0.20) K/uL Polychromasia 2+ Anisocytosis Present Macrocytosis Target Cells 1+ Echinocytes 1+ Acanthocytes (Spur) PT (9.0-12.0) Seconds INR (0.9-1.1) APTT (21-31) Seconds PTT Ratio POC Sodium (135-144) mmol/L Sodium 126 L (136-145) mmol/L POC Potassium (3.3-5.0) mmol/L Potassium 4.4 (3.5-5.1) mmol/L POC Chloride (101-112) mmol/L Chloride 101 (98-107) mmol/L Carbon Dioxide 17 L (21-32) mmol/L POC Total CO2 (24-31) mmol/L Anion Gap 8 (3-11) POC Anion Gap (16-25) mmol/L POC BUN (7-18) mg/dl BUN 58 H (6-23) mg/dl Creatinine 2.49 H (0.6-1.4) mg/dl POC Creatinine (0.6-1.3) mg/dl Est Cr Clr Drug Dosing 42.1 ml/min Est GFR ( Amer) 31.3 ml/min Est GFR (Non-Af Amer) 27.0 ml/min BUN/Creatinine Ratio 23.3 H (10-20) Glucose 90 (70-99(Fasting)) mg/dl POC Glucose 141 H 92 (70-99) mg/dl POC Glucose (other) (70-99) mg/dl Osmolality (280-300) mOsm/kg Lactate (0.4-2.0) mmol/L Calcium 8.0 L (8.6-10.3) mg/dl POC Ioniz Calcium Karen (1.12-1.32) mmol/l Magnesium 1.6 L (1.7-2.4) mg/dl Total Bilirubin 6.5 H (0.2-1.0) mg/dl Direct Bilirubin (0-0.2) mg/dl AST 25 (13-39) U/L ALT 9 (7-52) U/L Alkaline Phosphatase 66 (34-104) U/L Ammonia (18-72) umol/L Troponin I High Sens (0-20) pg/ml Total Protein 5.4 L (6.0-8.3) gm/dl Albumin 2.5 L (3.4-5.0) gm/dl Globulin 2.9 (2.5-4.0) gm/dl Albumin/Globulin Ratio 0.9 (0.9-2) Procalcitonin (0-0.5) ng/ml Urine Color Urine Appearance (Clear) Urine pH (4.5-7.5) Ur Specific Ehrenberg (1.000-1.030) Urine Protein (Negative) Urine Glucose (UA) (Negative) Urine Ketones (Negative) Urine Blood (Negative) Urine Nitrite (Negative) Urine Bilirubin (Negative) Urine Urobilinogen (Negative) Ur Leukocyte Esterase (Negative) Urine WBC (Auto) (0-5) /hpf Urine RBC (Auto) (0-2) /hpf U Hyaline Cast (Auto) (0-2) /lpf U Epithel Cells (Auto) (0-2) /hpf Urine Bacteria (Auto) (None Seen) Urine Osmolality (500-800) mOsm/kg Ur Random Sodium mmol/L Adenovirus (PCR) (NotDetected) B. pertussis DNA (PCR) (NotDetected) B.parapertussis DNA PCR (NotDetected) C. pneumoniae DNA (PCR) (NotDetected) Coronavirus OC43 (PCR) (NotDetected) Coronavirus HKU1 (PCR) (NotDetected) Coronavirus 229E (PCR) (NotDetected) SARS-CoV-2 (PCR) (NotDetected) Coronavirus NL63 (PCR) (NotDetected) Human Metapneumovir PCR (NotDetected) Influenza Type A (PCR) (NotDetected) Influenza Type B (PCR) (NotDetected) M. pneumoniae (PCR) (NotDetected) Parainfluenza 1 (PCR) (NotDetected) Parainfluenza 2 (PCR) (NotDetected) Parainfluenza 3 (PCR) (NotDetected) Parainfluenza 4 (PCR) (NotDetected) RSV (PCR) (NotDetected) Entero/Rhino (PCR) (NotDetected) 07/02/24 07/02/24 07/02/24 Range/Units Unknown 22:09 19:54 WBC (4.8-10.8) K/ul RBC (4.70-6.10) M/uL Hgb (14.0-18.0) g/dl POC Hgb (14.0-18.0) g/dl Hct (42.0-52.0) % POC Hct (42-52) % MCV (80.0-100.0) fL MCH (25.0-34.0) pg MCHC (32.0-36.0) g/dL RDW Std Deviation (36.4-46.3) fL RDW Coeff of Nabeel (11.5-14.5) % Plt Count (130-400) K/uL MPV (9.4-12.4) fL Immature Gran % (Auto) % Neut % (Auto) % Lymph % (Auto) % Wilson % (Auto) % Eos % (Auto) % Baso % (Auto) % Neut # (Auto) (1.40-6.50) K/uL Lymph # (Auto) (1.20-3.40) K/uL Wilson # (Auto) (0.11-0.59) K/uL Eos # (Auto) (0.00-0.50) K/uL Baso # (Auto) (0.00-0.20) K/uL Immature Gran # (Auto) (0.01-0.20) K/uL Polychromasia Anisocytosis Macrocytosis Target Cells Echinocytes Acanthocytes (Spur) PT (9.0-12.0) Seconds INR (0.9-1.1) APTT (21-31) Seconds PTT Ratio POC Sodium (135-144) mmol/L Sodium 124 L (136-145) mmol/L POC Potassium (3.3-5.0) mmol/L Potassium 4.4 (3.5-5.1) mmol/L POC Chloride (101-112) mmol/L Chloride 100 (98-107) mmol/L Carbon Dioxide 18 L (21-32) mmol/L POC Total CO2 (24-31) mmol/L Anion Gap 6 (3-11) POC Anion Gap (16-25) mmol/L POC BUN (7-18) mg/dl BUN 59 H (6-23) mg/dl Creatinine 2.51 H (0.6-1.4) mg/dl POC Creatinine (0.6-1.3) mg/dl Est Cr Clr Drug Dosing 41.2 ml/min Est GFR ( Amer) 31.0 ml/min Est GFR (Non-Af Amer) 26.8 ml/min BUN/Creatinine Ratio 23.5 H (10-20) Glucose 119 H (70-99(Fasting)) mg/dl POC Glucose 143 H (70-99) mg/dl POC Glucose (other) (70-99) mg/dl Osmolality (280-300) mOsm/kg Lactate (0.4-2.0) mmol/L Calcium 8.3 L (8.6-10.3) mg/dl POC Ioniz Calcium Karen (1.12-1.32) mmol/l Magnesium (1.7-2.4) mg/dl Total Bilirubin (0.2-1.0) mg/dl Direct Bilirubin (0-0.2) mg/dl AST (13-39) U/L ALT (7-52) U/L Alkaline Phosphatase (34-104) U/L Ammonia (18-72) umol/L Troponin I High Sens (0-20) pg/ml Total Protein (6.0-8.3) gm/dl Albumin (3.4-5.0) gm/dl Globulin (2.5-4.0) gm/dl Albumin/Globulin Ratio (0.9-2) Procalcitonin (0-0.5) ng/ml Urine Color Urine Appearance (Clear) Urine pH (4.5-7.5) Ur Specific Ehrenberg (1.000-1.030) Urine Protein (Negative) Urine Glucose (UA) (Negative) Urine Ketones (Negative) Urine Blood (Negative) Urine Nitrite (Negative) Urine Bilirubin (Negative) Urine Urobilinogen (Negative) Ur Leukocyte Esterase (Negative) Urine WBC (Auto) (0-5) /hpf Urine RBC (Auto) (0-2) /hpf U Hyaline Cast (Auto) (0-2) /lpf U Epithel Cells (Auto) (0-2) /hpf Urine Bacteria (Auto) (None Seen) Urine Osmolality (500-800) mOsm/kg Ur Random Sodium mmol/L Adenovirus (PCR) Not Detected (NotDetected) B. pertussis DNA (PCR) Not Detected (NotDetected) B.parapertussis DNA PCR Not Detected (NotDetected) C. pneumoniae DNA (PCR) Not Detected (NotDetected) Coronavirus OC43 (PCR) Not Detected (NotDetected) Coronavirus HKU1 (PCR) Not Detected (NotDetected) Coronavirus 229E (PCR) Not Detected (NotDetected) SARS-CoV-2 (PCR) Not Detected (NotDetected) Coronavirus NL63 (PCR) Not Detected (NotDetected) Human Metapneumovir PCR Not Detected (NotDetected) Influenza Type A (PCR) Not Detected (NotDetected) Influenza Type B (PCR) Not Detected (NotDetected) M. pneumoniae (PCR) Not Detected (NotDetected) Parainfluenza 1 (PCR) Not Detected (NotDetected) Parainfluenza 2 (PCR) Not Detected (NotDetected) Parainfluenza 3 (PCR) Not Detected (NotDetected) Parainfluenza 4 (PCR) Not Detected (NotDetected) RSV (PCR) Not Detected (NotDetected) Entero/Rhino (PCR) Not Detected (NotDetected) 11/20/23 11/20/23 11/20/23 Range/Units 19:14 17:09 16:06 WBC (4.8-10.8) K/ul RBC (4.70-6.10) M/uL Hgb (14.0-18.0) g/dl POC Hgb (14.0-18.0) g/dl Hct (42.0-52.0) % POC Hct (42-52) % MCV (80.0-100.0) fL MCH (25.0-34.0) pg MCHC (32.0-36.0) g/dL RDW Std Deviation (36.4-46.3) fL RDW Coeff of Nabeel (11.5-14.5) % Plt Count (130-400) K/uL MPV (9.4-12.4) fL Immature Gran % (Auto) % Neut % (Auto) % Lymph % (Auto) % Wilson % (Auto) % Eos % (Auto) % Baso % (Auto) % Neut # (Auto) (1.40-6.50) K/uL Lymph # (Auto) (1.20-3.40) K/uL Wilson # (Auto) (0.11-0.59) K/uL Eos # (Auto) (0.00-0.50) K/uL Baso # (Auto) (0.00-0.20) K/uL Immature Gran # (Auto) (0.01-0.20) K/uL Polychromasia Anisocytosis Macrocytosis Target Cells Echinocytes Acanthocytes (Spur) PT (9.0-12.0) Seconds INR (0.9-1.1) APTT (21-31) Seconds PTT Ratio POC Sodium (135-144) mmol/L Sodium 124 L 124 L (136-145) mmol/L POC Potassium (3.3-5.0) mmol/L Potassium 4.6 4.7 (3.5-5.1) mmol/L POC Chloride (101-112) mmol/L Chloride 100 100 (98-107) mmol/L Carbon Dioxide 18 L 18 L (21-32) mmol/L POC Total CO2 (24-31) mmol/L Anion Gap 6 6 (3-11) POC Anion Gap (16-25) mmol/L POC BUN (7-18) mg/dl BUN 59 H 59 H (6-23) mg/dl Creatinine 2.54 H 2.45 H (0.6-1.4) mg/dl POC Creatinine (0.6-1.3) mg/dl Est Cr Clr Drug Dosing 40.8 42.3 ml/min Est GFR ( Amer) 30.6 31.9 ml/min Est GFR (Non-Af Amer) 26.4 27.6 ml/min BUN/Creatinine Ratio 23.2 H 24.1 H (10-20) Glucose 139 H 122 H (70-99(Fasting)) mg/dl POC Glucose (70-99) mg/dl POC Glucose (other) (70-99) mg/dl Osmolality (280-300) mOsm/kg Lactate (0.4-2.0) mmol/L Calcium 8.3 L 8.2 L (8.6-10.3) mg/dl POC Ioniz Calcium Karen (1.12-1.32) mmol/l Magnesium (1.7-2.4) mg/dl Total Bilirubin (0.2-1.0) mg/dl Direct Bilirubin (0-0.2) mg/dl AST (13-39) U/L ALT (7-52) U/L Alkaline Phosphatase (34-104) U/L Ammonia (18-72) umol/L Troponin I High Sens (0-20) pg/ml Total Protein (6.0-8.3) gm/dl Albumin (3.4-5.0) gm/dl Globulin (2.5-4.0) gm/dl Albumin/Globulin Ratio (0.9-2) Procalcitonin (0-0.5) ng/ml Urine Color Urine Appearance (Clear) Urine pH (4.5-7.5) Ur Specific Ehrenberg (1.000-1.030) Urine Protein (Negative) Urine Glucose (UA) (Negative) Urine Ketones (Negative) Urine Blood (Negative) Urine Nitrite (Negative) Urine Bilirubin (Negative) Urine Urobilinogen (Negative) Ur Leukocyte Esterase (Negative) Urine WBC (Auto) (0-5) /hpf Urine RBC (Auto) (0-2) /hpf U Hyaline Cast (Auto) (0-2) /lpf U Epithel Cells (Auto) (0-2) /hpf Urine Bacteria (Auto) (None Seen) Urine Osmolality 292 L (500-800) mOsm/kg Ur Random Sodium 23 mmol/L Adenovirus (PCR) (NotDetected) B. pertussis DNA (PCR) (NotDetected) B.parapertussis DNA PCR (NotDetected) C. pneumoniae DNA (PCR) (NotDetected) Coronavirus OC43 (PCR) (NotDetected) Coronavirus HKU1 (PCR) (NotDetected) Coronavirus 229E (PCR) (NotDetected) SARS-CoV-2 (PCR) (NotDetected) Coronavirus NL63 (PCR) (NotDetected) Human Metapneumovir PCR (NotDetected) Influenza Type A (PCR) (NotDetected) Influenza Type B (PCR) (NotDetected) M. pneumoniae (PCR) (NotDetected) Parainfluenza 1 (PCR) (NotDetected) Parainfluenza 2 (PCR) (NotDetected) Parainfluenza 3 (PCR) (NotDetected) Parainfluenza 4 (PCR) (NotDetected) RSV (PCR) (NotDetected) Entero/Rhino (PCR) (NotDetected) 11/20/23 11/20/23 11/20/23 Range/Units 16:03 12:50 12:23 WBC (4.8-10.8) K/ul RBC (4.70-6.10) M/uL Hgb (14.0-18.0) g/dl POC Hgb (14.0-18.0) g/dl Hct (42.0-52.0) % POC Hct (42-52) % MCV (80.0-100.0) fL MCH (25.0-34.0) pg MCHC (32.0-36.0) g/dL RDW Std Deviation (36.4-46.3) fL RDW Coeff of Nabeel (11.5-14.5) % Plt Count (130-400) K/uL MPV (9.4-12.4) fL Immature Gran % (Auto) % Neut % (Auto) % Lymph % (Auto) % Wilson % (Auto) % Eos % (Auto) % Baso % (Auto) % Neut # (Auto) (1.40-6.50) K/uL Lymph # (Auto) (1.20-3.40) K/uL Wilson # (Auto) (0.11-0.59) K/uL Eos # (Auto) (0.00-0.50) K/uL Baso # (Auto) (0.00-0.20) K/uL Immature Gran # (Auto) (0.01-0.20) K/uL Polychromasia Anisocytosis Macrocytosis Target Cells Echinocytes Acanthocytes (Spur) PT (9.0-12.0) Seconds INR (0.9-1.1) APTT (21-31) Seconds PTT Ratio POC Sodium (135-144) mmol/L Sodium (136-145) mmol/L POC Potassium (3.3-5.0) mmol/L Potassium (3.5-5.1) mmol/L POC Chloride (101-112) mmol/L Chloride (98-107) mmol/L Carbon Dioxide (21-32) mmol/L POC Total CO2 (24-31) mmol/L Anion Gap (3-11) POC Anion Gap (16-25) mmol/L POC BUN (7-18) mg/dl BUN (6-23) mg/dl Creatinine (0.6-1.4) mg/dl POC Creatinine (0.6-1.3) mg/dl Est Cr Clr Drug Dosing ml/min Est GFR ( Amer) ml/min Est GFR (Non-Af Amer) ml/min BUN/Creatinine Ratio (10-20) Glucose (70-99(Fasting)) mg/dl POC Glucose 124 H (70-99) mg/dl POC Glucose (other) (70-99) mg/dl Osmolality (280-300) mOsm/kg Lactate 1.7 (0.4-2.0) mmol/L Calcium (8.6-10.3) mg/dl POC Ioniz Calcium Karen (1.12-1.32) mmol/l Magnesium (1.7-2.4) mg/dl Total Bilirubin (0.2-1.0) mg/dl Direct Bilirubin (0-0.2) mg/dl AST (13-39) U/L ALT (7-52) U/L Alkaline Phosphatase (34-104) U/L Ammonia (18-72) umol/L Troponin I High Sens (0-20) pg/ml Total Protein (6.0-8.3) gm/dl Albumin (3.4-5.0) gm/dl Globulin (2.5-4.0) gm/dl Albumin/Globulin Ratio (0.9-2) Procalcitonin (0-0.5) ng/ml Urine Color Dark Yellow Urine Appearance Clear (Clear) Urine pH 5.5 (4.5-7.5) Ur Specific Ehrenberg 1.015 (1.000-1.030) Urine Protein Negative (Negative) Urine Glucose (UA) Negative (Negative) Urine Ketones Negative (Negative) Urine Blood 2+ H (Negative) Urine Nitrite Negative (Negative) Urine Bilirubin Negative (Negative) Urine Urobilinogen Negative (Negative) Ur Leukocyte Esterase Negative (Negative) Urine WBC (Auto) 0-5 (0-5) /hpf Urine RBC (Auto) 6-10 H (0-2) /hpf U Hyaline Cast (Auto) 3-5 H (0-2) /lpf U Epithel Cells (Auto) 0-2 (0-2) /hpf Urine Bacteria (Auto) None Seen (None Seen) Urine Osmolality (500-800) mOsm/kg Ur Random Sodium mmol/L Adenovirus (PCR) (NotDetected) B. pertussis DNA (PCR) (NotDetected) B.parapertussis DNA PCR (NotDetected) C. pneumoniae DNA (PCR) (NotDetected) Coronavirus OC43 (PCR) (NotDetected) Coronavirus HKU1 (PCR) (NotDetected) Coronavirus 229E (PCR) (NotDetected) SARS-CoV-2 (PCR) (NotDetected) Coronavirus NL63 (PCR) (NotDetected) Human Metapneumovir PCR (NotDetected) Influenza Type A (PCR) (NotDetected) Influenza Type B (PCR) (NotDetected) M. pneumoniae (PCR) (NotDetected) Parainfluenza 1 (PCR) (NotDetected) Parainfluenza 2 (PCR) (NotDetected) Parainfluenza 3 (PCR) (NotDetected) Parainfluenza 4 (PCR) (NotDetected) RSV (PCR) (NotDetected) Entero/Rhino (PCR) (NotDetected) 11/20/23 11/20/23 Range/Units 10:33 10:29 WBC 15.14 H (4.8-10.8) K/ul RBC 3.03 L (4.70-6.10) M/uL Hgb 9.9 L (14.0-18.0) g/dl POC Hgb 11.2 L (14.0-18.0) g/dl Hct 28.1 L (42.0-52.0) % POC Hct 33 L (42-52) % MCV 92.7 (80.0-100.0) fL MCH 32.7 (25.0-34.0) pg MCHC 35.2 (32.0-36.0) g/dL RDW Std Deviation 71.3 H (36.4-46.3) fL RDW Coeff of Nabeel 21.5 H (11.5-14.5) % Plt Count 62 L (130-400) K/uL MPV 10.3 (9.4-12.4) fL Immature Gran % (Auto) 1.9 % Neut % (Auto) 78.6 % Lymph % (Auto) 9.5 % Wilson % (Auto) 8.1 % Eos % (Auto) 1.6 % Baso % (Auto) 0.3 % Neut # (Auto) 11.89 H (1.40-6.50) K/uL Lymph # (Auto) 1.44 (1.20-3.40) K/uL Wilson # (Auto) 1.23 H (0.11-0.59) K/uL Eos # (Auto) 0.24 (0.00-0.50) K/uL Baso # (Auto) 0.05 (0.00-0.20) K/uL Immature Gran # (Auto) 0.29 H (0.01-0.20) K/uL Polychromasia 1+ Anisocytosis Macrocytosis Present Target Cells Echinocytes 2+ Acanthocytes (Spur) 1+ PT 22.1 H (9.0-12.0) Seconds INR 2.2 H (0.9-1.1) APTT 45 H (21-31) Seconds PTT Ratio 1.7 POC Sodium 126 L (135-144) mmol/L Sodium 122 L (136-145) mmol/L POC Potassium 5.0 (3.3-5.0) mmol/L Potassium 4.8 (3.5-5.1) mmol/L POC Chloride 100 L (101-112) mmol/L Chloride 99 (98-107) mmol/L Carbon Dioxide 18 L (21-32) mmol/L POC Total CO2 16 L (24-31) mmol/L Anion Gap 5 (3-11) POC Anion Gap 16.0 (16-25) mmol/L POC BUN 48 H (7-18) mg/dl BUN 58 H (6-23) mg/dl Creatinine 2.53 H (0.6-1.4) mg/dl POC Creatinine 2.9 H (0.6-1.3) mg/dl Est Cr Clr Drug Dosing 43.7 ml/min Est GFR ( Amer) 30.7 ml/min Est GFR (Non-Af Amer) 26.5 ml/min BUN/Creatinine Ratio 22.9 H (10-20) Glucose 150 H (70-99(Fasting)) mg/dl POC Glucose (70-99) mg/dl POC Glucose (other) 151 H (70-99) mg/dl Osmolality 283 (280-300) mOsm/kg Lactate 2.5 H* (0.4-2.0) mmol/L Calcium 8.5 L (8.6-10.3) mg/dl POC Ioniz Calcium Karen 1.20 (1.12-1.32) mmol/l Magnesium 1.7 (1.7-2.4) mg/dl Total Bilirubin 7.0 H (0.2-1.0) mg/dl Direct Bilirubin 4.1 H (0-0.2) mg/dl AST 33 (13-39) U/L ALT 12 (7-52) U/L Alkaline Phosphatase 89 (34-104) U/L Ammonia 39.0 (18-72) umol/L Troponin I High Sens 5.8 (0-20) pg/ml Total Protein 6.3 (6.0-8.3) gm/dl Albumin 2.2 L (3.4-5.0) gm/dl Globulin (2.5-4.0) gm/dl Albumin/Globulin Ratio (0.9-2) Procalcitonin 0.52 H (0-0.5) ng/ml Urine Color Urine Appearance (Clear) Urine pH (4.5-7.5) Ur Specific Ehrenberg (1.000-1.030) Urine Protein (Negative) Urine Glucose (UA) (Negative) Urine Ketones (Negative) Urine Blood (Negative) Urine Nitrite (Negative) Urine Bilirubin (Negative) Urine Urobilinogen (Negative) Ur Leukocyte Esterase (Negative) Urine WBC (Auto) (0-5) /hpf Urine RBC (Auto) (0-2) /hpf U Hyaline Cast (Auto) (0-2) /lpf U Epithel Cells (Auto) (0-2) /hpf Urine Bacteria (Auto) (None Seen) Urine Osmolality (500-800) mOsm/kg Ur Random Sodium mmol/L Adenovirus (PCR) (NotDetected) B. pertussis DNA (PCR) (NotDetected) B.parapertussis DNA PCR (NotDetected) C. pneumoniae DNA (PCR) (NotDetected) Coronavirus OC43 (PCR) (NotDetected) Coronavirus HKU1 (PCR) (NotDetected) Coronavirus 229E (PCR) (NotDetected) SARS-CoV-2 (PCR) (NotDetected) Coronavirus NL63 (PCR) (NotDetected) Human Metapneumovir PCR (NotDetected) Influenza Type A (PCR) (NotDetected) Influenza Type B (PCR) (NotDetected) M. pneumoniae (PCR) (NotDetected) Parainfluenza 1 (PCR) (NotDetected) Parainfluenza 2 (PCR) (NotDetected) Parainfluenza 3 (PCR) (NotDetected) Parainfluenza 4 (PCR) (NotDetected) RSV (PCR) (NotDetected) Entero/Rhino (PCR) (NotDetected) Diagnostic Findings Chest X-Ray 11/20/23 10:06 XR chest 1V portable HISTORY: Sepsis COMPARISON: Chest 11/06/2023. FINDINGS: No pneumothorax. No pleural effusions. The cardiac silhouette is borderline enlarged. This remains unchanged. A right jugular central venous catheter terminates at the distal SVC. No acute fractures. There are low lung volumes. Diffuse interstitial thickening is again noted. Hazy airspace opacity within the right lung apex has slightly progressed. This suggests progressive mild pulmonary edema. Left basilar densities again noted. IMPRESSION: 1. Interval progression of mild pulmonary edema. 2. Left basilar airspace opacities are again noted and likely represents a pneumonia. 3. Right jugular central venous catheter terminates in the distal SVC. No pneumothorax. ACT 112: Negative or not required by law. Electronically signed by: James Lemus M.D. 11/20/2023 12:17 PM Scrotum Ultrasound 11/20/23 10:06 US scrotum/testicle CLINICAL HISTORY: sepsis TECHNIQUE: Real-time sonographic images of the scrotal contents were obtained. Comparison: Comparison is made to CT abdomen pelvis 11/20/2023 FINDINGS: The right testicle measures 3.2 x 2.4 x 2.2 cm. The left testicle measures 3.1 x 2.0 x 2.[address]stes are uniform in echogenicity bilaterally. Doppler flow i s seen bilaterally. Epididymal head cyst measures 0.7 mm. There are no hydroceles. No varicoceles were seen. Severe scrotal edema is seen. IMPRESSION: Severe scrotal edema is seen without testicular abnormality. ACT 112: Negative or not required by law. Electronically signed by: Gerson Betts M.D. 11/20/2023 3:54 PM Abdomen/Pelvis CT 11/20/23 11:59 CT OF THE ABDOMEN AND PELVIS WITHOUT CONTRAST CLINICAL HISTORY: Abdominal pain. COMPARISON STUDY: CT of the abdomen and pelvis November 06, 2023. TECHNIQUE: Axial images of the abdomen and pelvis were obtained without IV contrast. Images were reviewed in the axial, sagittal, and coronal planes. Automated exposure control was utilized for the study. A dose lowering technique was utilized adhering to the principles of ALARA. FINDINGS: Body wall edema has significantly increased when compared to CT of November 06, 2023. Moderate left lower lobe airspace opacity with volume loss has slightly increased. Patchy groundglass opacities within the right upper and middle lobes have developed. A few small airspace opacities within the right lower lobe are present. There is no pneumatosis, free air or portal venous gas. Evaluation of the abdomen and pelvis is suboptimal on this unenhanced exam. The liver is cirrhotic. Sensitivity for detection of hepatic lesions is diminished on unenhanced exam but none are identified. Splenomegaly is again noted. Large volume ascites has slightly increased. Varices are noted. Bilateral renal calculi measure up to 8 mm. There is no hydronephrosis. There are no ureteral calculi. There are gallstones within the gallbladder. Gallbladder distention has resolved. The adrenal glands and pancreas are unremarkable. There is no biliary or pancreatic ductal dilatation. There is no evidence for a bowel obstruction. The bladder is distended. There is ascites within the umbilical hernia. No fluid collections are present. Mild bilateral inguinal lymph nodes remain unchanged. The appendix is normal. IMPRESSION: 1. Cirrhotic liver. Splenomegaly, varices and large volume ascites indicative of portal hypertension. 2. No bowel obstruction. 3. Significant increase in body wall edema. 4. Bilateral nephrolithiasis. No ureteral calculi or hydronephrosis. 5. Multifocal groundglass opacities within the right lung suggestive of pneumonia. Left lower lobe opacity could reflect pneumonia or atelectasis. 6. Cholelithiasis. Interval resolution of gallbladder distention. ACT 112: Negative or not required by law. Electronically signed by: Remi Hernandez M.D. 11/20/2023 12:39 PM PG Care Time/CCT Total # of Minutes Spent Total Time Spent with Patient: Total time spent is greater than 50% in coordination of care (as documented) at patient's floor/unit and/or counseling patient: I spent 125 minutes overall addressing this case: 20 min in medical data review/discussion with referring provider(s) and/or preparation for the visit 20 min in direct interaction with the patient/exam 60 min in Advance Care Planning/Goals of Care discussions as detailed above in note (must be >16min) 10 min in subsequent review and synthesis of assessment and plan 15 min communicating with other providers regarding the patient's case: Primary team, nursing, nephrology, GI Prolonged Care Time Prolonged Care Time: Yes [place] [id number] IN/OBS CONSULT LVL 4,60M (25 - SIGNIFICANT, SEPARATELY IDENTIFIABLE ) Patient Type New Medical Decision Making High Complexity Diagnoses Weakness generalized R53.1 Abdominal pain, generalized R10.84 Declining performance status R53.81 Advanced care planning/counseling discussion Z71.89 Counseling regarding advanced directives and goals of care Z71.89 Additional Codes Prolonged Care Time - Prolonged Care Time: Yes ([id number])
[2023-11-21] MEDS: FUROSEMIDE 40 MG/4 ML VIAL IV SCH (11:36)
--- NOTE | 2023-11-21 12:19 | Hospitalist Progress Note ---
Date of Service November 21, 2023 Assessment & Plan (1) Hepatorenal syndrome: (2) Comfort measures only status: (3) Abdominal ascites: Plan: With a h/o EtOH cirrhosis, here with recurrent abdominal ascites and decompensated cirrhosis. Weight is up almost 50 lbs over the last month, with worsening weakness, and now with hepatorenal syndrome. Follows with transplant team at [facility] in [facility]--> not a candidate for transplant again confirmed today by GI SNAP ATTACHER via phone call given his significant cardiopulm issues (severe CAD, COPD on chronic O2) and poor functional capacity Based on presenting labs, MELD Na Score of 35 (estimated 3-month mortality rate of 52.6%) Appreciate GI consultation--> arrangements made to transfer to [facility] for HRS and possible SBP even if not necessarily a transplant candidate, but ultimately, pt and family decided to not transfer far away as they know prognosis is very poor and have already been told he is not a good candidate for transplant. They prefer he be closer to family for comfort measures Dc IV albumin and octreotide, but can continue midodrine for now Will get large volume paracentesis today for comfort, but will dc antibiotics for SBP and no lab studies on peritoneal fluid will be run Continue IV lasix started by Nephro for comfort to keep fluid off No further lab draws Morphine for SOB, pain as per Palliative Med-appreciate consult Downgrade off tele and placed on comfort measures only on 11/21/23 (4) RODRIGO (acute kidney injury): Plan: BUN 58, creatinine 2.53 (baseline 0.7), EGFR 26.5 on arrival hepatorenal syndrome as above Keep Azar, now on CHOCOLATE FINISHER Appreciate Nephrology consultation (5) Hypotension: Plan: 89/49 due to hypoalbuminemia, intravascular volume depletion, cirrhosis midodrine helping but now on CHOCOLATE FINISHER (6) Aspiration pneumonia: Plan: May be residual from last admission However, patient does endorse ongoing SOB at rest and conversational dyspnea Leukocytosis 15.14 on arrival with a neutrophil predominance; was 15.59 at time of discharge on 11/15 Sputum culture on 11/05 grew Staph aureus susceptible to oxacillin and was treated for this with Augmentin on discharge dc antibiotics on CHOCOLATE FINISHER and completed course anyway (7) Chronic hypoxic respiratory failure: Plan: Patient is on 3 L NC at baseline continue O2 for comfort (8) Hyponatremia: Plan: Na 122 on arrival; in the setting of decompensated cirrhosis giving lasix now but no further labs on CHOCOLATE FINISHER (9) Scrotal abscess: Plan: Daily wound care Wound care nurse evaluation appreciated U/S Scrotum negative for abscess-abscess ruled out wound care for ulceration (10) Skin lesion of left lower extremity: Plan: Daily wound care (11) Diabetes: Plan: liberalize diet and no further accuchecks or insulin on CHOCOLATE FINISHER (12) Opioid use disorder: Plan: In remission; continue buprenorphine but is reduced dosing due to liver failure home dose 8 mg qAM and 16 qPM here, on 16 mg qPM (13) Chronic hepatitis C with cirrhosis: Plan: Continue lactulose TID (14) Anasarca: Plan: IV lasix for comfort (15) Anemia: Plan: secondary to chronic disease Plan Disposition: transition to CHOCOLATE FINISHER, downgrade to med/surg. WIll see if wants to go home with hospice vs NH with hospice or remain in ospital if deteriorates quickly Change to DNR/DNI as per discussion with pt by Palliative and by myself with his sister/decision maker Admission and Anticipated Discharge Date Admission Date: November 20, 2023 Subjective Pt seen on multiple occasions this AM and I spent time on phone with [facility] and in discussion with GI, Nephrology, and Palliative Medicine. He reports feeling very weak, denies abdominal pain but wants to have fluid re moved for comfort. He is moving his bowels. He has no appetite, not eating much. Says that he is getting shaky an dhaving pain because he did not get is AM dose of Subutex He was offered a transfer to tertiary care at [facility] for eval for HRS and ?TIPS vs transplant eval but given he was not a transplant candidate at [facility], it seems unlikely he would be at [place]. Ultimately, after discussion with his sister (at pt's request), pt and sister have decided to stay at [facility] and focus on comfort measures. He knows he is at the end of his life and wants to be close to home as most of his family would be a [address] away from [place] and would not be able to see him quickly if needed. Tele with NSR rates 70-80s Physical Exam Constitutional: + ill appearing; no acute distress Respiratory: normal respiratory effort Auscultation: + diminished lung sounds (bases bilat); no wheezes Cardiovascular: Rate/Rhythm: regular rate and regular rhythm Heart Sounds: no murmur Extremities: + edema (2+ pitting edema to abdomen bilat) Gastrointestinal (Abdomen): Inspection/Auscultation: + abdomen distended, normal bowel sounds and + abdominal edema Percussion/Palpation: + ascites; abdomen nontender Skin: + erythema (scrotum) petechiae on arms and legs Neurologic: Motor/Sensory: + asterixis Psychiatric: Orientation: alert, oriented x 3 and cooperative Results & Data Results & Data Vital Signs (Past 12 Hours) Vital Signs Temp Pulse Pulse Resp BP Pulse Ox O2 Del Method 11/21/23 10:52 36.4 C L 87 18 112/64 93 Nasal Cannula 11/21/23 10:27 Nasal Cannula 11/21/23 07:24 77 11/21/23 07:16 36.3 C L 80 18 103/62 94 Nasal Cannula 11/21/23 02:49 36.3 C L 81 18 101/60 94 Nasal Cannula O2 Flow Rate 11/21/23 10:52 2 11/21/23 10:27 2 11/21/23 07:24 11/21/23 07:16 2 11/21/23 02:49 2 Laboratory Results CBC, CMP, INR, lactate, blood cultures reviewed Diagnostic Findings Scrotal US reviewed PG Care Time/CCT Total # of Minutes Spent Total Time Spent with Patient: Total time spent is greater than 50% in coordination of care (as documented) at patient's floor/unit and/or counseling patient: Coding Level of Care Code 90690 SUB INP/OBS CARE 3/50MIN Diagnoses Hepatorenal syndrome K76.7 Comfort measures only status Z51.5 Abdominal ascites R18.8 RODRIGO (acute kidney injury) N17.9 Hypotension I95.9 Aspiration pneumonia J69.0 Chronic hypoxic respiratory failure J96.11 Hyponatremia E87.1 Scrotal abscess N49.2 Skin lesion of left lower extremity L98.9 Diabetes E11.9 Opioid use disorder F11.90 Chronic hepatitis C with cirrhosis B18.2; K74.60 Anasarca R60.1 Anemia D64.9
--- NOTE | 2023-11-21 15:30 | Ultrasound Report ---
Ultrasound-guided paracentesis INDICATION: Ascites PROCEDURE: Procedure and risks were explained. Informed consent was obtained. A final time out was co mpleted. The abdomen was prepped and draped in sterile fashion. 1% buffered lidocaine was utilized fo r skin anesthesia. Utilizing ultrasound guidance, a 5 Portuguese safety centesis catheter was advanced into the right lower quadrant pocket of ascites. Ultrasound images were obtained. 6600 mL of ascites fluid was removed wit h 1 L sent to lab for analysis. The catheter was removed and Band-Aid applied. The patient tolerated the procedure well. Vital signs will be monitored postprocedure. IMPRESSION: Paracentesis as above. Performed, dictated, and signed by Dimas Stanley PA-C; to be co-signed by Dr. James Lemus. Electronically signed by: James Lemus M.D. 11/21/2023 3:43 PM
[2023-11-21] MEDS: MoRPHine SULFATE 4 MG/ML 1 ML CARP\\VIAL IV PRN (20:23)
[2023-11-21] MEDS: LORazepam 1 MG in SYRINGE 0.5 ML IV PRN (20:26)
--- NOTE | 2023-11-21 23:52 | Electrocardiogram Report ---
Test Reason : Blood Pressure : / mmHG Vent. Rate : 092 BPM Atrial Rate : 092 BPM P-R Int : 156 ms QRS Dur : 092 ms QT Int : 380 ms P-R-T Axes : 038 018 044 degrees QTc Int : 469 ms Normal sinus rhythm Low voltage QRS Cannot rule out Anterior infarct , age undetermined Nonspecific T wave abnormality Abnormal ECG When compared with ECG of 06-NOV-2023 12:48, No significant change was found Confirmed by David Caldwell ([id number]) on 11/21/2023 11:52:35 PM Referred By: Confirmed By:David Caldwell
--- NOTE | 2023-11-22 14:13 | Hospitalist Progress Note ---
Date of Service November 22, 2023 Assessment & Plan (1) Comfort measures only status: (2) Hepatorenal syndrome: Plan: With a h/o EtOH cirrhosis, here with recurrent abdominal ascites and decompensated cirrhosis. Weight is up almost 50 lbs over the last month, with worsening weakness, and now with hepatorenal syndrome. Follows with transplant team at [facility] in [place]--> not a candidate for transplant again confirmed today by GI TELEPHONE STATION INSTALLER via phone call given his significant cardiopulm issues (severe CAD, COPD on chronic O2) and poor functional capacity Based on presenting labs, MELD Na Score of 35 (estimated 3-month mortality rate of 52.6%) Appreciate GI consultation--> arrangements made to transfer to [facility] for HRS and possible SBP even if not necessarily a transplant candidate, but ultimately, pt and family decided to not transfer far away as they know prognosis is very poor and have already been told he is not a good candidate for transplant. They prefer he be closer to family for comfort measures Dcd IV albumin and octreotide, but can continue midodrine for now He received day large volume paracentesis on 11/20 with removal of 6.6 L of ascites for comfort, but have discontinued antibiotics for SBP and no lab studies on peritoneal fluid will be run Continue IV lasix started by Nephro for comfort to keep fluid off No further lab draws Morphine for SOB, pain as per Palliative Med-appreciate consult Placed on comfort measures only on 11/21/23 (3) Abdominal ascites: Plan: As noted above (4) RODRIGO (acute kidney injury): Plan: BUN 58, creatinine 2.53 (baseline 0.7), EGFR 26.5 on arrival hepatorenal syndrome as above Keep Azar, now on REAL ESTATE COORDINATOR Appreciate Nephrology consultation (5) Hypotension: Plan: 89/49 due to hypoalbuminemia, intravascular volume depletion, cirrhosis midodrine helping but now on REAL ESTATE COORDINATOR (6) Aspiration pneumonia: Plan: May be residual from last admission However, patient does endorse ongoing SOB at rest and conversational dyspnea Leukocytosis 15.14 on arrival with a neutrophil predominance; was 15.59 at time of discharge on 11/15 Sputum culture on 11/05 grew Staph aureus susceptible to oxacillin and was treated for this with Augmentin on discharge dc antibiotics on REAL ESTATE COORDINATOR and completed course anyway (7) Chronic hypoxic respiratory failure: Plan: Patient is on 3 L NC at baseline continue O2 for comfort (8) Hyponatremia: Plan: Na 122 on arrival; in the setting of decompensated cirrhosis giving lasix but no further labs on REAL ESTATE COORDINATOR (9) Scrotal abscess: Plan: Daily wound care Wound care nurse evaluation appreciated U/S Scrotum negative for abscess-abscess ruled out wound care for ulceration (10) Skin lesion of left lower extremity: Plan: Daily wound care (11) Diabetes: Plan: liberalize diet and no further accuchecks or insulin on REAL ESTATE COORDINATOR (12) Opioid use disorder: Plan: In remission; continue buprenorphine but is reduced dosing due to liver failure home dose 8 mg qAM and 16 qPM here, on 16 mg qPM (13) Chronic hepatitis C with cirrhosis: Plan: Continue lactulose TID (14) Anasarca: Plan: IV lasix for comfort (15) Anemia: Plan: secondary to chronic disease Plan Disposition: transitioned to REAL ESTATE COORDINATOR, remains on med/surg. Discussed care with sister/POA on the phone on 11/21 who reports that the patient has terrible living conditions and no one to care for him 11/12 if he were to return home with hospice. I expect he will likely pass away within the next 7 days and can remain in the hospital until then Admission and Anticipated Discharge Date Admission Date: November 20, 2023 Subjective Pt received morphine and ativan x 2 doses since yesterday. Remains drowsy through the day but is waking up to eat small amounts and take his medications. He denies pain but drifts off to sleep quickly. He appears very comfortable. I discussed his care with his sister. Physical Exam Constitutional: + ill appearing; no acute distress Respiratory: normal respiratory effort Auscultation: + diminished lung sounds (bases bilat); no wheezes Cardiovascular: Rate/Rhythm: regular rate and regular rhythm Heart Sounds: no murmur Extremities: + edema (2+ pitting edema to abdomen bilat) Gastrointestinal (Abdomen): Inspection/Auscultation: + abdomen distended (But much improved from yesterday), normal bowel sounds and + abdominal edema Percussion/Palpation: abdomen nontender Results & Data Results & Data Vital Signs (Past 12 Hours) Vital Signs Temp Pulse Resp BP Pulse Ox O2 Del Method O2 Flow Rate 11/22/23 13:54 83 18 127/71 93 Nasal Cannula 2 11/22/23 09:22 36.9 C 92 H 16 104/56 L 93 Nasal Cannula 2 Laboratory Results No labs PG Care Time/CCT Total # of Minutes Spent Total Time Spent with Patient: Total time spent is greater than 50% in coordination of care (as documented) at patient's floor/unit and/or counseling patient: Coding Level of Care Code 48526 SUB INP/OBS CARE 06/14MIN Diagnoses Comfort measures only status Z51.5 Hepatorenal syndrome K76.7 Abdominal ascites R18.8 RODRIGO (acute kidney injury) N17.9 Hypotension I95.9 Aspiration pneumonia J69.0 Chronic hypoxic respiratory failure J96.11 Hyponatremia E87.1 Scrotal abscess N49.2 Skin lesion of left lower extremity L98.9 Diabetes E11.9 Opioid use disorder F11.90 Chronic hepatitis C with cirrhosis B18.2; K74.60 Anasarca R60.1 Anemia D64.9
--- NOTE | 2023-11-23 12:20 | Hospitalist Progress Note ---
Date of Service November 23, 2023 Assessment & Plan (1) Comfort measures only status: (2) Hepatorenal syndrome: Plan: With a h/o EtOH cirrhosis, here with recurrent abdominal ascites and decompensated cirrhosis. Weight is up almost 50 lbs over the last month, with worsening weakness, and now with hepatorenal syndrome. Follows with transplant team at [facility] in [place] not a candidate for transplant again confirmed by GI ROAD ROLLER OPERATOR HOT MIX via phone call given his significant cardiopulm issues (severe CAD, COPD on chronic O2) and poor functional capacity Based on presenting labs, MELD Na Score of 35 (estimated 3-month mortality rate of 52.6%) Appreciate GI consultation--> arrangements made to transfer to [facility] for HRS and possible SBP even if not necessarily a transplant candidate, but ultimately, pt and family decided to not transfer far away as they know prognosis is very poor and have already been told he is not a good candidate for transplant. They prefer he be closer to family for comfort measures Dcd IV albumin and octreotide,and will now dc midodrine He received day large volume paracentesis on 11/20 with removal of 6.6 L of ascites for comfort, but have discontinued antibiotics for SBP and no lab studies on peritoneal fluid will be run Continue IV lasix started by Nephro for comfort to keep fluid off as per sister's request Could perform another paracentesis on Sunday for comfort if he wishes No further lab draws Morphine for SOB, pain as per Palliative Med-appreciate consult Placed on comfort measures only on 11/21/23 (3) Abdominal ascites: Plan: As noted above (4) RODRIGO (acute kidney injury): Plan: BUN 58, creatinine 2.53 (baseline 0.7), EGFR 26.5 on arrival hepatorenal syndrome as above Keep Azar, now on CARGO BRACER Appreciate Nephrology consultation No further labs (5) Hypotension: Plan: 89/49 due to hypoalbuminemia, intravascular volume depletion, cirrhosis midodrine started but now discontinued on CARGO BRACER (6) Aspiration pneumonia: Plan: May be residual from last admission However, patient does endorse ongoing SOB at rest and conversational dyspnea Leukocytosis 15.14 on arrival with a neutrophil predominance; was 15.59 at time of discharge on 11/15 Sputum culture on 11/05 grew Staph aureus susceptible to oxacillin and was treated for this with Augmentin on discharge dcd antibiotics on CARGO BRACER and completed course anyway (7) Chronic hypoxic respiratory failure: Plan: Patient is on 3 L NC at baseline continue O2 for comfort (8) Hyponatremia: Plan: Na 122 on arrival; in the setting of decompensated cirrhosis giving lasix but no further labs on CARGO BRACER (9) Scrotal abscess: Plan: Daily wound care Wound care nurse evaluation appreciated U/S Scrotum negative for abscess-abscess ruled out wound care for ulceration (10) Skin lesion of left lower extremity: Plan: Daily wound care (11) Diabetes: Plan: liberalize diet and no further accuchecks or insulin on CARGO BRACER (12) Opioid use disorder: Plan: In remission; continue buprenorphine but is reduced dosing due to liver failure home dose 8 mg qAM and 16 qPM here, on 16 mg qPM (13) Chronic hepatitis C with cirrhosis: Plan: Continue lactulose TID (14) Anasarca: Plan: IV lasix for comfort (15) Anemia: Plan: secondary to chronic disease Plan Disposition: transitioned to CARGO BRACER, remains on med/surg. Discussed care with sister/POA on the phone on 11/21 who reports that the patient has terrible living conditions and no one to care for him 11/12 if he were to return home with hospice. Discussed care with sister at bedside on 11/22 I expect he will likely pass away within the next 7 days and can remain in the hospital until then. He cannot afford private pay [place] for hospice at [place] Admission and Anticipated Discharge Date Admission Date: November 20, 2023 Subjective Pt very lethargic. Received pain meds. He does briefly open eyes to verbal stim and denies pain. He is really not able to take po meds but sister requests ongoing IV lasix to help keep fluid off belly for comfort Sister at bedside Physical Exam Constitutional: + ill appearing; no acute distress Respiratory: normal respiratory effort Auscultation: + diminished lung sounds (bases bilat); no wheezes Cardiovascular: Rate/Rhythm: regular rate and regular rhythm Heart Sounds: no murmur Extremities: + edema (2+ pitting edema to abdomen bilat) Gastrointestinal (Abdomen): Inspection/Auscultation: + abdomen distended (mild), normal bowel sounds and + abdominal edema Percussion/Palpation: + ascites; abdomen nontender Psychiatric: Orientation: cooperative; + not alert PG Care Time/CCT Total # of Minutes Spent Total Time Spent with Patient: Total time spent is greater than 50% in coordination of care (as documented) at patient's floor/unit and/or counseling patient: Coding Level of Care Code 83122 SUB INP/OBS CARE 1/25MIN Diagnoses Comfort measures only status Z51.5 Hepatorenal syndrome K76.7 Abdominal ascites R18.8 RODRIGO (acute kidney injury) N17.9 Hypotension I95.9 Aspiration pneumonia J69.0 Chronic hypoxic respiratory failure J96.11 Hyponatremia E87.1 Scrotal abscess N49.2 Skin lesion of left lower extremity L98.9 Diabetes E11.9 Opioid use disorder F11.90 Chronic hepatitis C with cirrhosis B18.2; K74.60 Anasarca R60.1 Anemia D64.9
--- NOTE | 2023-11-23 12:36 | Palliative Family Discussion ---
Date of Service November 23, 2023 Patient Directed Conference Time of Meetin:30 AM Participants: Erna Issa DNP Patient participation: yes Patient Support System:sister Other Healthcare Provider Participation: None Meeting Location: bedside Advanced Directive available: Patient has elected comfort care and is a CODE STATUS of DNR/DNI. The patient's surrogate medical decision maker participated: Sister A family meeting was held for KAYODE GREENFIELD. This meeting was necessary for determining the appropriate course of treatment. Topics of Discussion Topics of Discussion: 1. End-stage liver disease, no longer a transplant candidate, was transition to comfort care 2. Recurrent ascites with distention and discomfort, last paracentesis 48 hours ago with 6.6 L removed and good relief. Moderate effect of Lasix however, for now, patient would like to remain on Lasix. 3. Patient expresses a preference to be able to return home for end-of-life care. However, he does not have adequate caregivers. His sister lives in the same apartment building but has her own medical issues and struggles including advanced COPD and interstitial lung disease. She is not able to physically provide the care he needs. They understand hospice his time in the home is limited to 1 to 2 hours and therefore he would not have an [id number] support. They have had some discussions further as a family and she would like care management to investigate whether or not he could go to [facility] for comfort care/end-of-life care because her [id number] Osmar Lambert, works there. Other Content of Meetin. Opportunity given for participants to speak and ask questions. 2. Participants were assured of attention to patient comfort. 3. Reassurance provided. 4. Support was provided for informed, good-wolf decisions. 5. Emotions expressed by family were acknowledged and addressed. 6. We will see how he does through the weekend and continue to work towards a goal of discharge to [facility] or equivalent [facility] for comfort. Time Involved in Meeting: I spent 30 minutes overall addressing this case:
--- NOTE | 2023-11-23 12:45 | Palliative Care Progress Note ---
Date of Service November 23, 2023 Assessment & Plan (1) Abdominal pain, generalized: (2) Weakness generalized: (3) Need for comfort care: (4) Declining performance status: (5) Palliative care by specialist: Plan Continue comfort care, no acute changes today Please see family meeting note from earlier this morning for advance care planning goals Thank you for allowing us to participate in the ongoing care of this patient. Please page with any additional concerns. Gilson Issa DNP Director, Palliative Medicine Admission and Anticipated Discharge Date Admission Date: November 20, 2023 Yun Woods remains on comfort care. He feels that his pain is managed fairly well at this time. He is enjoying a liberalize diet. He feels his skin also is less pruritic. He reports that the tap done on 7 3 relieved a lot of discomfort for him. He has no new complaints. He admits to intermittent nausea, notes that this is sometimes after he eats or drinks too fast. His sister is at the bedside. We had a goals of care/advance care planning family meeting earlier this morning. Review of Systems Review of Systems: All systems reviewed & are unremarkable except as noted in Subjective Physical Exam Physical Exam: Resting in bed, supine. No acute distress noted. Mild bitemporal wasting. PERRLA. EOMI's. Icteric sclera (mild) Neck is supple, no stridor, no gross JVD Anterior lung field exam is diminished overall, very faint crackles, no wheezing. No use of abdominal muscles for respiratory effort, no conversational dyspnea. CVS S1-S2, apical rate is 100. Abdomen distended, tender to palpation, bowel sounds diminished. + Fluid wave. Generalized weakness throughout. + Edema to the bilateral lower extremities. He is awake alert and oriented x 3 but sometimes needs a few moments to compose his thoughts before answering. He seems to have some very mild word location difficulties. Skin is pale but warm. There is generalized jaundice. He has diffuse petechiae and ecchymoses throughout. This is most pronounced over his anterior chest and bilateral upper extremities. PG Care Time/CCT Total # of Minutes Spent Total Time Spent with Patient: Total time spent is greater than 50% in coordination of care (as documented) at patient's floor/unit and/or counseling patient: I spent 50 minutes overall addressing this case: 15 min in medical data review/discussion with referring provider(s) and/or preparation for the visit 15 min in direct interaction with the patient/exam 00 min in Advance Care Planning/Goals of Care discussions as detailed above in note (must be >16min) 10 min in subsequent review and synthesis of assessment and plan 10 min communicating with other providers regarding the patient's case: Primary team, nursing [place] [address] SUB INP/OBS CARE 3/50MIN Patient Type Established History Comprehensive Exam Comprehensive Medical Decision Making High Complexity Diagnoses Abdominal pain, generalized R10.84 Weakness generalized R53.1 Need for comfort care Declining performance status R53.81 Palliative care by specialist Z51.5
[2023-11-24] MEDS: GLYCOPYRROLATE 0.2 MG/ML VIAL IV PRN (05:17)
[2023-11-24] MEDS: FUROSEMIDE 40 MG/4 ML VIAL IV SCH (08:36)
--- NOTE | 2023-11-24 12:28 | Hospitalist Progress Note ---
Date of Service November 24, 2023 Assessment & Plan (1) Comfort measures only status: (2) Hepatorenal syndrome: Plan: With a h/o EtOH cirrhosis, here with recurrent abdominal ascites and decompensated cirrhosis. Weight is up almost 50 lbs over the last month, with worsening weakness, and now with hepatorenal syndrome. Follows with transplant team at [facility] in [place] not a candidate for transplant again confirmed by GI WATER RESOURCE SPECIALIST via phone call given his significant cardiopulm issues (severe CAD, COPD on chronic O2) and poor functional capacity Based on presenting labs, MELD Na Score of 35 (estimated 3-month mortality rate of 52.6%) Appreciate GI consultation--> arrangements made to transfer to [facility] for HRS and possible SBP even if not necessarily a transplant candidate, but ultimately, pt and family decided to not transfer far away as they know prognosis is very poor and have already been told he is not a good candidate for transplant. They prefer he be closer to family for comfort measures Dcd IV albumin and octreotide,and will now dc midodrine He received day large volume paracentesis on 11/20 with removal of 6.6 L of ascites for comfort, but have discontinued antibiotics for SBP and no lab studies on peritoneal fluid will be run Continue IV lasix started by Nephro for comfort to keep fluid off as per sister's request Could perform another paracentesis on Sunday for comfort if he wishes No further lab draws. Stopped unnecessary meds except those for comfort Morphine for SOB, pain as per Palliative Med-appreciate consult Placed on comfort measures only on 11/21/23 (3) Abdominal ascites: Plan: As noted above (4) RODRIGO (acute kidney injury): Plan: BUN 58, creatinine 2.53 (baseline 0.7), EGFR 26.5 on arrival hepatorenal syndrome as above Keep Azar, now on STAFF DEVELOPMENT COORDINATOR Appreciate Nephrology consultation No further labs (5) Hypotension: Plan: 89/49 due to hypoalbuminemia, intravascular volume depletion, cirrhosis midodrine started but now discontinued on STAFF DEVELOPMENT COORDINATOR (6) Aspiration pneumonia: Plan: May be residual from last admission However, patient does endorse ongoing SOB at rest and conversational dyspnea Leukocytosis 15.14 on arrival with a neutrophil predominance; was 15.59 at time of discharge on 11/15 Sputum culture on 11/05 grew Staph aureus susceptible to oxacillin and was treated for this with Augmentin on discharge dcd antibiotics on STAFF DEVELOPMENT COORDINATOR and completed course anyway (7) Chronic hypoxic respiratory failure: Plan: Patient is on 3 L NC at baseline continue O2 for comfort (8) Hyponatremia: Plan: Na 122 on arrival; in the setting of decompensated cirrhosis giving lasix but no further labs on STAFF DEVELOPMENT COORDINATOR (9) Scrotal abscess: Plan: Daily wound care Wound care nurse evaluation appreciated U/S Scrotum negative for abscess-abscess ruled out wound care for ulceration (10) Skin lesion of left lower extremity: Plan: Daily wound care (11) Diabetes: Plan: liberalize diet and no further accuchecks or insulin on STAFF DEVELOPMENT COORDINATOR (12) Opioid use disorder: Plan: In remission; continue buprenorphine but is reduced dosing due to liver failure home dose 8 mg qAM and 16 qPM here, on 16 mg qPM (13) Chronic hepatitis C with cirrhosis: Plan: discontinued lactulose (14) Anasarca: Plan: IV lasix for comfort (15) Anemia: Plan: secondary to chronic disease Plan Disposition: transitioned to STAFF DEVELOPMENT COORDINATOR, remains on med/surg. Discussed care with sister/POA on the phone on 11/21 who reports that the patient has terrible living conditions and no one to care for him 11/12 if he were to return home with [facility]. Discussed care with sister at bedside on 11/22 I expect he will likely pass away within the next 7 days and can remain in the hospital until then. He cannot afford private pay [place] for hospice [place] Admission and Anticipated Discharge Date Admission Date: November 20, 2023 Subjective Pt lethargic, briefly opens eyes to verbal stimulus. Physical Exam Constitutional: + ill appearing; no acute distress Respiratory: normal respiratory effort Auscultation: + diminished lung sounds (bases bilat); no wheezes Cardiovascular: Rate/Rhythm: regular rate and regular rhythm Heart Sounds: no murmur Extremities: + edema (3+ pitting edema to abdomen bilat) Gastrointestinal (Abdomen): Inspection/Auscultation: + abdomen distended (mild), normal bowel sounds and + abdominal edema Percussion/Palpation: + ascites; abdomen nontender Psychiatric: Orientation: + not alert Results & Data Results & Data Vital Signs (Past 12 Hours) Vital Signs Temp Pulse Resp BP Pulse Ox O2 Del Method O2 Flow Rate 11/24/23 06:54 36.6 C 99 H 20 116/72 95 Nasal Cannula 3 PG Care Time/CCT Total # of Minutes Spent Total Time Spent with Patient: Total time spent is greater than 50% in coordination of care (as documented) at patient's floor/unit and/or counseling patient: Coding Level of Care Code 22574 SUB INP/OBS CARE 06/14MIN Diagnoses Comfort measures only status Z51.5 Hepatorenal syndrome K76.7 Abdominal ascites R18.8 RODRIGO (acute kidney injury) N17.9 Hypotension I95.9 Aspiration pneumonia J69.0 Chronic hypoxic respiratory failure J96.11 Hyponatremia E87.1 Scrotal abscess N49.2 Skin lesion of left lower extremity L98.9 Diabetes E11.9 Opioid use disorder F11.90 Chronic hepatitis C with cirrhosis B18.2; K74.60 Anasarca R60.1 Anemia D64.9
--- NOTE | 2023-11-25 18:08 | Hospitalist Progress Note ---
Date of Service November 25, 2023 Assessment & Plan (1) Comfort measures only status: (2) Hepatorenal syndrome: Plan: With a h/o EtOH cirrhosis, here with recurrent abdominal ascites and decompensated cirrhosis. Weight is up almost 50 lbs over the last month, with worsening weakness, and now with hepatorenal syndrome. Follows with transplant team at [facility] in [place] not a candidate for transplant again confirmed by GI ANESTHESIOLOGIST ATTENDING via phone call given his significant cardiopulm issues (severe CAD, COPD on chronic O2) and poor functional capacity Based on presenting labs, MELD Na Score of 35 (estimated 3-month mortality rate of 52.6%) Appreciate GI consultation--> arrangements made to transfer to [facility] for HRS and possible SBP even if not necessarily a transplant candidate, but ultimately, pt and family decided to not transfer far away as they know prognosis is very poor and have already been told he is not a good candidate for transplant. They prefer he be closer to family for comfort measures Dcd IV albumin and octreotide and midodrine He received day large volume paracentesis on 11/20 with removal of 6.6 L of ascites for comfort, but have discontinued antibiotics for SBP and no lab studies on peritoneal fluid will be run Continue IV lasix started by Nephro for comfort to keep fluid off as per sister's request Could perform another paracentesis on Sunday for comfort if he wishes if abdomen becomes even more distended but does not seem necessary at this point given he appears very comfortable No further lab draws. Stopped unnecessary meds except those for comfort Morphine for SOB, pain as per Palliative Med-appreciate consult Placed on comfort measures only on 11/21/23 (3) Abdominal ascites: Plan: As noted above (4) RODRIGO (acute kidney injury): Plan: BUN 58, creatinine 2.53 (baseline 0.7), EGFR 26.5 on arrival hepatorenal syndrome as above Keep Azar, now on RAYMOND MILL OPERATOR Appreciate Nephrology consultation No further labs (5) Hypotension: Plan: 89/49 due to hypoalbuminemia, intravascular volume depletion, cirrhosis midodrine started but now discontinued on RAYMOND MILL OPERATOR (6) Aspiration pneumonia: Plan: May be residual from last admission However, patient does endorse ongoing SOB at rest and conversational dyspnea Leukocytosis 15.14 on arrival with a neutrophil predominance; was 15.59 at time of discharge on 11/15 Sputum culture on 11/05 grew Staph aureus susceptible to oxacillin and was treated for this with Augmentin on discharge dcd antibiotics on RAYMOND MILL OPERATOR and completed course anyway (7) Chronic hypoxic respiratory failure: Plan: Patient is on 3 L NC at baseline continue O2 for comfort (8) Hyponatremia: Plan: Na 122 on arrival; in the setting of decompensated cirrhosis giving lasix but no further labs on RAYMOND MILL OPERATOR (9) Scrotal abscess: Plan: Daily wound care Wound care nurse evaluation appreciated U/S Scrotum negative for abscess-abscess ruled out wound care for ulceration (10) Skin lesion of left lower extremity: Plan: Daily wound care (11) Diabetes: Plan: liberalize diet and no further accuchecks or insulin on RAYMOND MILL OPERATOR (12) Opioid use disorder: Plan: In remission; continue buprenorphine but is reduced dosing due to liver failure home dose 8 mg qAM and 16 qPM here, on 16 mg qPM (13) Chronic hepatitis C with cirrhosis: Plan: discontinued lactulose (14) Anasarca: Plan: IV lasix for comfort (15) Anemia: Plan: secondary to chronic disease Plan Disposition: transitioned to RAYMOND MILL OPERATOR, remains on med/surg. Discussed care with sister/POA on the phone on 11/21 who reports that the patient has terrible living conditions and no one to care for him 11/12 if he were to return home with hospice. Discussed care with sister at bedside on 11/22 I expect he will likely pass away within the next 7 days and can remain in the hospital until then. He cannot afford private pay [place] for hospice at [place] Admission and Anticipated Discharge Date Admission Date: November 20, 2023 Subjective Patient obtunded, briefly opens eyes to verbal stimulus but does not answer any of my questions. Remains comfortable on morphine and Ativan as needed Discussed care with nursing He did wake up and eat a little bit earlier today Physical Exam Constitutional: + ill appearing; no acute distress Respiratory: normal respiratory effort Auscultation: + diminished lung sounds (bases bilat); no wheezes Cardiovascular: Rate/Rhythm: regular rate and regular rhythm Heart Sounds: no murmur Extremities: + edema (3+ pitting edema to abdomen bilat) Results & Data Results & Data Vital Signs (Past 12 Hours) Vital Signs O2 Del Method O2 Flow Rate 11/25/23 08:00 Nasal Cannula 2.5 PG Care Time/CCT Total # of Minutes Spent Total Time Spent with Patient: Total time spent is greater than 50% in coordination of care (as documented) at patient's floor/unit and/or counseling patient: Coding Level of Care Code 17712 SUB INP/OBS CARE 1/25MIN Diagnoses Comfort measures only status Z51.5 Hepatorenal syndrome K76.7 Abdominal ascites R18.8 RODRIGO (acute kidney injury) N17.9 Hypotension I95.9 Aspiration pneumonia J69.0 Chronic hypoxic respiratory failure J96.11 Hyponatremia E87.1 Scrotal abscess N49.2 Skin lesion of left lower extremity L98.9 Diabetes E11.9 Opioid use disorder F11.90 Chronic hepatitis C with cirrhosis B18.2; K74.60 Anasarca R60.1 Anemia D64.9
--- NOTE | 2023-11-26 22:00 | Hospitalist Progress Note ---
Date of Service November 26, 2023 Assessment & Plan (1) Comfort measures only status: (2) Hepatorenal syndrome: Plan: With a h/o EtOH cirrhosis, here with recurrent abdominal ascites and decompensated cirrhosis. Weight is up almost 50 lbs over the last month, with worsening weakness, and now with hepatorenal syndrome. Follows with transplant team at [facility] in [place] not a candidate for transplant again confirmed by GI PHILOSOPHY FACULTY via phone call given his significant cardiopulm issues (severe CAD, COPD on chronic O2) and poor functional capacity Based on presenting labs, MELD Na Score of 35 (estimated 3-month mortality rate of 52.6%) Appreciate GI consultation--> arrangements made to transfer to [facility] for HRS and possible SBP even if not necessarily a transplant candidate, but ultimately, pt and family decided to not transfer far away as they know prognosis is very poor and have already been told he is not a good candidate for transplant. They prefer he be closer to family for comfort measures Dcd IV albumin and octreotide and midodrine He received day large volume paracentesis on 11/20 with removal of 6.6 L of ascites for comfort, but have discontinued antibiotics for SBP and no lab studies on peritoneal fluid will be run Continue IV lasix started by Nephro for comfort to keep fluid off as per sister's request Could perform another paracentesis on Sunday for comfort if he wishes if abdomen becomes even more distended but does not seem necessary at this point given he appears very comfortable No further lab draws. Stopped unnecessary meds except those for comfort Morphine for SOB, pain as per Palliative Med-appreciate consult Placed on comfort measures only on 11/21/23 (3) Abdominal ascites: Plan: As noted above (4) RODRIGO (acute kidney injury): Plan: BUN 58, creatinine 2.53 (baseline 0.7), EGFR 26.5 on arrival hepatorenal syndrome as above Keep Azar, now on BRIM BUSTER Appreciate Nephrology consultation No further labs (5) Hypotension: Plan: 89/49 due to hypoalbuminemia, intravascular volume depletion, cirrhosis midodrine started but now discontinued on BRIM BUSTER (6) Aspiration pneumonia: Plan: May be residual from last admission However, patient does endorse ongoing SOB at rest and conversational dyspnea Leukocytosis 15.14 on arrival with a neutrophil predominance; was 15.59 at time of discharge on 11/15 Sputum culture on 11/05 grew Staph aureus susceptible to oxacillin and was treated for this with Augmentin on discharge dcd antibiotics on BRIM BUSTER and completed course anyway (7) Chronic hypoxic respiratory failure: Plan: Patient is on 3 L NC at baseline continue O2 for comfort (8) Hyponatremia: Plan: Na 122 on arrival; in the setting of decompensated cirrhosis giving lasix but no further labs on BRIM BUSTER (9) Scrotal abscess: Plan: Daily wound care Wound care nurse evaluation appreciated U/S Scrotum negative for abscess-abscess ruled out wound care for ulceration (10) Skin lesion of left lower extremity: Plan: Daily wound care (11) Diabetes: Plan: liberalize diet and no further accuchecks or insulin on BRIM BUSTER (12) Opioid use disorder: Plan: In remission; continue buprenorphine but is reduced dosing due to liver failure home dose 8 mg qAM and 16 qPM here, on 16 mg qPM (13) Chronic hepatitis C with cirrhosis: Plan: discontinued lactulose (14) Anasarca: Plan: IV lasix for comfort (15) Anemia: Plan: secondary to chronic disease Plan Disposition: transitioned to BRIM BUSTER, remains on med/surg. Discussed care with sister/POA on the phone on 11/21 who reports that the patient has terrible living conditions and no one to care for him 11/12 if he were to return home with hospice. Discussed care with sister at bedside on 11/22 I expect he will likely pass away within the next 7 days and can remain in the hospital until then. [place] afford private pay [place] hospice [place] Admission and Anticipated Discharge Date Admission Date: November 20, 2023 Subjective Patient obtunded Review of Systems Review of Systems: Unobtainable due to cognitive status Physical Exam Constitutional: + ill appearing; no acute distress Respiratory: normal respiratory effort Auscultation: + diminished lung sounds (bases bilat); no wheezes Cardiovascular: Rate/Rhythm: regular rate and regular rhythm Heart Sounds: no murmur Extremities: + edema (3+ pitting edema to abdomen bilat) PG Care Time/CCT Total # of Minutes Spent Total Time Spent with Patient: Total time spent is greater than 50% in coordination of care (as documented) at patient's floor/unit and/or counseling patient: Coding Level of Care Code 76247 SUB INP/OBS CARE 1/25MIN Diagnoses Comfort measures only status Z51.5 Hepatorenal syndrome K76.7 Abdominal ascites R18.8 RODRIGO (acute kidney injury) N17.9 Hypotension I95.9 Aspiration pneumonia J69.0 Chronic hypoxic respiratory failure J96.11 Hyponatremia E87.1 Scrotal abscess N49.2 Skin lesion of left lower extremity L98.9 Diabetes E11.9 Opioid use disorder F11.90 Chronic hepatitis C with cirrhosis B18.2; K74.60 Anasarca R60.1 Anemia D64.9
[2023-11-27] MEDS ORDERED: STAT IV Infusion **Titration per Protocol STA (09:40)
--- NOTE | 2023-11-27 09:49 | Communication Note ---
Date of Service: November 27, 2023 Pall Med Brief Note Full note to follow Pt transitioning to active dying no longer taking PO increasingly less responsive using MS 3mg IV q4h on a regular basis, total daily dose is 18mg which is 0.75mg per hour Will begin MS Infusion for EOL care at 1mg per hour with 2mg bolus q15min prn for BTP/air hunger, and titration protocol. I have stopped non comfort/PO meds, he can no longer take I updated sister Violet She plans to arrive later today an stay overnight with pt I have updated primary team and nursing. Thank you for allowing us to participate in the ongoing care of this patient. Please page with any additional concerns. Gilson Issa DNP Director, Palliative Medicine
[2023-11-27] MEDS: MoRPHine SULF/NSS 100 MG/100 ML BAG IV SCH (09:58)
--- NOTE | 2023-11-27 15:36 | Palliative Family Discussion ---
Date of Service November 27, 2023 Patient Directed Conference Time of Meetin Participants: Erna Issa DNP Patient participation: no, lethargic Patient Support System: sister/EVI Lazo Other Healthcare Provider Participation: None Meeting Location: telephonic, Violet is unable to travel in this extreme heat due to her ILD The patient's surrogate medical decision maker participated: yes, violet A family meeting was held for KAYODE GREENFIELD. This meeting was necessary for determining the appropriate course of treatment. Topics of Discussion Topics of Discussion: 1. Zack has worsened since the weekend. More lethargic, no longer taking PO. Requiring Q4h ATC pain meds. 2. Violet reaffirms DNR/DNI and goal is comfort. She knows he is suffering and wants him to be at ease. She no longer wants SNF placement near their home as it is likely he is transitioning to active dying. 3. Violet will be in later today/towards evening. She plans to stay with pt overnight. Other Content of Meetin. Opportunity given for participants to speak and ask questions. 2. Participants were assured of attention to patient comfort. 3. Reassurance provided. 4. Support was provided for informed, good-wolf decisions. 5. Emotions expressed by family were acknowledged and addressed. 6.Discussed changes pt may move through in the dying process including but not limited to sleeping more, disorientation when awake, restlessness, diminished senses/inability to respond to stimulus although ability to be aware of them remains intact longer, and changes in body temperatures, skin changes/mottling/cyanosis, respiratory pattern changes, and oral secretions. Family verbalized understanding. The goal is to assure a peaceful . 7. Plan of Care: BUSINESS MACHINE MECHANIC. MS infusion ordered. Secretions at EOL/management: I discussed with family that as the level of consciousness decreases in the dying process, patients lose their ability to swallow and clear oral secretions. As air moves over the secretions, which have pooled in the oropharynx and bronchi, the resulting turbulence produces noisy ventilation with each breath, described as gurgling or rattling noises. While there is no evidence that patients find this rattle disturbing, evidence from bereaved surveys suggests the noises can be disturbing to the patients visitors and caregivers who may fear that the patient is choking to . We recommend a combination of Non-Pharmacological and Pharmacological Treatments: * 1. Position the patient on their side or in a semi-prone position to facilitate postural drainage * 2. Communication with family and caregivers to reaffirm commitment to their loves ones care, reduce anxiety and fears. * 3. Gentle oropharyngeal suctioning is used although this can be ineffective when fluids are beyond the reach of the catheter. Avoid deep suctioning as it is very irritating. Note that frequent suctioning is disturbing to both the patient and the visitors. * 4. Reduction of fluid intake. * 5. Consider a 1-2 min Trendelenburg positioning, to move fluids up into the oropharynx for easier removal BUT note that ASPIRATION RISK WILL INCREASE. * 6. Muscarinic receptor blockers (anti-cholinergic drugs) are most often used: glycopyrrolate (Robinul), scopolamine (Transderm Scop), hyoscyamine and atropine. Of these, I prefer to using glycopyrrolate as first line treatment, because it is a quaternary amine (therefore does not cross the blood-brain barrier) which reduces the potential anti cholinergic agent associated REGISTERED APPRAISER toxicity (sedation, delirium). * 7. Glycopyrrolate has five times the anti-secretory potency compared to atropine, while scopolamine dries/thickens secretions and causes dry mouth, which may be more distressing to the patient and detract from comfort. Time Involved in Meetinmin/25min ACP, 10min d/w primary team and nursing Thank you for allowing us to participate in the ongoing care of this patient. Please page with any additional concerns. Gilson Issa DNP Director, Palliative Medicine
--- NOTE | 2023-11-27 22:46 | Hospitalist Progress Note ---
Date of Service November 27, 2023 Assessment & Plan (1) Comfort measures only status: (2) Hepatorenal syndrome: Plan: With a h/o EtOH cirrhosis, here with recurrent abdominal ascites and decompensated cirrhosis. Weight is up almost 50 lbs over the last month, with worsening weakness, and now with hepatorenal syndrome. Follows with transplant team at [facility] in [place] not a candidate for transplant again confirmed by GI STATION TENDER via phone call given his significant cardiopulm issues (severe CAD, COPD on chronic O2) and poor functional capacity Based on presenting labs, MELD Na Score of 35 (estimated 3-month mortality rate of 52.6%) Appreciate GI consultation--> arrangements made to transfer to [facility] for HRS and possible SBP even if not necessarily a transplant candidate, but ultimately, pt and family decided to not transfer far away as they know prognosis is very poor and have already been told he is not a good candidate for transplant. They prefer he be closer to family for comfort measures Dcd IV albumin and octreotide and midodrine He received day large volume paracentesis on 11/20 with removal of 6.6 L of ascites for comfort, but have discontinued antibiotics for SBP and no lab studies on peritoneal fluid will be run Continue IV lasix started by Nephro for comfort to keep fluid off as per sister's request Could perform another paracentesis on Sunday for comfort if he wishes if abdomen becomes even more distended but does not seem necessary at this point given he appears very comfortable No further lab draws. Stopped unnecessary meds except those for comfort Morphine for SOB, pain as per Palliative Med-appreciate consult Placed on comfort measures only on 11/21/23 (3) Abdominal ascites: Plan: As noted above (4) RODRIGO (acute kidney injury): Plan: BUN 58, creatinine 2.53 (baseline 0.7), EGFR 26.5 on arrival hepatorenal syndrome as above Keep Azar, now on GLOVE PRINTER Appreciate Nephrology consultation No further labs (5) Hypotension: Plan: 89/49 due to hypoalbuminemia, intravascular volume depletion, cirrhosis midodrine started but now discontinued on GLOVE PRINTER (6) Aspiration pneumonia: Plan: May be residual from last admission However, patient does endorse ongoing SOB at rest and conversational dyspnea Leukocytosis 15.14 on arrival with a neutrophil predominance; was 15.59 at time of discharge on 11/15 Sputum culture on 11/05 grew Staph aureus susceptible to oxacillin and was treated for this with Augmentin on discharge dcd antibiotics on GLOVE PRINTER and completed course anyway (7) Chronic hypoxic respiratory failure: Plan: Patient is on 3 L NC at baseline continue O2 for comfort (8) Hyponatremia: Plan: Na 122 on arrival; in the setting of decompensated cirrhosis giving lasix but no further labs on GLOVE PRINTER (9) Scrotal abscess: Plan: Daily wound care Wound care nurse evaluation appreciated U/S Scrotum negative for abscess-abscess ruled out wound care for ulceration (10) Skin lesion of left lower extremity: Plan: Daily wound care (11) Diabetes: Plan: liberalize diet and no further accuchecks or insulin on GLOVE PRINTER (12) Opioid use disorder: Plan: In remission; continue buprenorphine but is reduced dosing due to liver failure home dose 8 mg qAM and 16 qPM here, on 16 mg qPM (13) Chronic hepatitis C with cirrhosis: Plan: discontinued lactulose (14) Anasarca: Plan: IV lasix for comfort (15) Anemia: Plan: secondary to chronic disease Plan Disposition: transitioned to GLOVE PRINTER, remains on med/surg. Discussed care with sister/POA on the phone on 11/21 who reports that the patient has terrible living conditions and no one to care for him 11/12 if he were to return home with hospice. Discussed care with sister at bedside on 11/22 I expect he will likely pass away within the next 7 days and can remain in the hospital until then. He [place] private [place] Admission and Anticipated Discharge Date Admission Date: November 20, 2023 Subjective Patient appears comfortable. Review of Systems Review of Systems: All systems reviewed & are unremarkable except as noted in HPI & below Physical Exam Constitutional: + ill appearing; no acute distress Respiratory: normal respiratory effort Auscultation: + diminished lung sounds (bases bilat); no wheezes Cardiovascular: Rate/Rhythm: regular rate and regular rhythm Heart Sounds: no murmur Extremities: + edema (3+ pitting edema to abdomen bilat) PG Care Time/CCT Total # of Minutes Spent Total Time Spent with Patient: Total time spent is greater than 50% in coordination of care (as documented) at patient's floor/unit and/or counseling patient: Coding Level of Care Code 47427 SUB INP/OBS CARE 06/14MIN Diagnoses Comfort measures only status Z51.5 Hepatorenal syndrome K76.7 Abdominal ascites R18.8 RODRIGO (acute kidney injury) N17.9 Hypotension I95.9 Aspiration pneumonia J69.0 Chronic hypoxic respiratory failure J96.11 Hyponatremia E87.1 Scrotal abscess N49.2 Skin lesion of left lower extremity L98.9 Diabetes E11.9 Opioid use disorder F11.90 Chronic hepatitis C with cirrhosis B18.2; K74.60 Anasarca R60.1 Anemia D64.9
[2023-11-28] MEDS ORDERED: SODIUM CHLORIDE 0.9% 50 ML BAG IV PRN (18:51)
[2023-11-28] MEDS: SODIUM CHLORIDE 0.9% 1,000 ML IV SCH (19:02)
--- NOTE | 2023-11-28 23:00 | Hospitalist Progress Note ---
Date of Service November 28, 2023 Assessment & Plan (1) Comfort measures only status: (2) Hepatorenal syndrome: Plan: With a h/o EtOH cirrhosis, here with recurrent abdominal ascites and decompensated cirrhosis. Weight is up almost 50 lbs over the last month, with worsening weakness, and now with hepatorenal syndrome. Follows with transplant team at [facility] in [place] not a candidate for transplant again confirmed by GI SWITCHING CLERK via phone call given his significant cardiopulm issues (severe CAD, COPD on chronic O2) and poor functional capacity Based on presenting labs, MELD Na Score of 35 (estimated 3-month mortality rate of 52.6%) Appreciate GI consultation--> arrangements made to transfer to [facility] for HRS and possible SBP even if not necessarily a transplant candidate, but ultimately, pt and family decided to not transfer far away as they know prognosis is very poor and have already been told he is not a good candidate for transplant. They prefer he be closer to family for comfort measures Dcd IV albumin and octreotide and midodrine He received day large volume paracentesis on 11/20 with removal of 6.6 L of ascites for comfort, but have discontinued antibiotics for SBP and no lab studies on peritoneal fluid will be run Continue IV lasix started by Nephro for comfort to keep fluid off as per sister's request Could perform another paracentesis on Sunday for comfort if he wishes if abdomen becomes even more distended but does not seem necessary at this point given he appears very comfortable No further lab draws. Stopped unnecessary meds except those for comfort Morphine for SOB, pain as per Palliative Med-appreciate consult Placed on comfort measures only on 11/21/23 Remains lethargic on 11/27 (3) Abdominal ascites: Plan: As noted above (4) RODRIGO (acute kidney injury): Plan: BUN 58, creatinine 2.53 (baseline 0.7), EGFR 26.5 on arrival hepatorenal syndrome as above Keep Azar, now on BULL GANG SUPERVISOR Appreciate Nephrology consultation No further labs (5) Hypotension: Plan: 89/49 due to hypoalbuminemia, intravascular volume depletion, cirrhosis midodrine started but now discontinued on BULL GANG SUPERVISOR (6) Aspiration pneumonia: Plan: May be residual from last admission However, patient does endorse ongoing SOB at rest and conversational dyspnea Leukocytosis 15.14 on arrival with a neutrophil predominance; was 15.59 at time of discharge on 11/15 Sputum culture on 11/05 grew Staph aureus susceptible to oxacillin and was treated for this with Augmentin on discharge dcd antibiotics on BULL GANG SUPERVISOR and completed course anyway (7) Chronic hypoxic respiratory failure: Plan: Patient is on 3 L NC at baseline continue O2 for comfort (8) Hyponatremia: Plan: Na 122 on arrival; in the setting of decompensated cirrhosis giving lasix but no further labs on BULL GANG SUPERVISOR (9) Scrotal abscess: Plan: Daily wound care Wound care nurse evaluation appreciated U/S Scrotum negative for abscess-abscess ruled out wound care for ulceration (10) Skin lesion of left lower extremity: Plan: Daily wound care (11) Diabetes: Plan: liberalize diet and no further accuchecks or insulin on BULL GANG SUPERVISOR (12) Opioid use disorder: Plan: In remission; continue buprenorphine but is reduced dosing due to liver failure home dose 8 mg qAM and 16 qPM here, on 16 mg qPM (13) Chronic hepatitis C with cirrhosis: Plan: discontinued lactulose (14) Anasarca: Plan: IV lasix for comfort (15) Anemia: Plan: secondary to chronic disease Plan Disposition: transitioned to BULL GANG SUPERVISOR, remains on med/surg. Discussed care with sister/POA on the phone on 11/21 who reports that the patient has terrible living conditions and no one to care for him 11/12 if he were to return home with hospice. Discussed care with sister at bedside on 11/22 I expect he will likely pass away within the next 7 days and can remain in the hospital until then. [place] private pay [place] Admission and Anticipated Discharge Date Admission Date: November 20, 2023 Subjective 63 yo male is lethargic. Opens eye with verbal stimuli Review of Systems Review of Systems: All systems reviewed & are unremarkable except as noted in HPI & below Physical Exam Constitutional: + ill appearing; no acute distress Respiratory: normal respiratory effort Auscultation: + diminished lung sounds (bases bilat); no wheezes Cardiovascular: Rate/Rhythm: regular rate and regular rhythm Heart Sounds: no murmur Extremities: + edema (3+ pitting edema to abdomen bilat) Results & Data Results & Data Vital Signs (Past 12 Hours) Vital Signs O2 Del Method 11/28/23 21:40 Room Air PG Care Time/CCT Total # of Minutes Spent Total Time Spent with Patient: Total time spent is greater than 50% in coordination of care (as documented) at patient's floor/unit and/or counseling patient: Coding Level of Care Code 95452 SUB INP/OBS CARE 06/14MIN Diagnoses Comfort measures only status Z51.5 Hepatorenal syndrome K76.7 Abdominal ascites R18.8 RODRIGO (acute kidney injury) N17.9 Hypotension I95.9 Aspiration pneumonia J69.0 Chronic hypoxic respiratory failure J96.11 Hyponatremia E87.1 Scrotal abscess N49.2 Skin lesion of left lower extremity L98.9 Diabetes E11.9 Opioid use disorder F11.90 Chronic hepatitis C with cirrhosis B18.2; K74.60 Anasarca R60.1 Anemia D64.9
--- NOTE | 2023-11-29 22:53 | Hospitalist Progress Note ---
Date of Service November 29, 2023 Assessment & Plan (1) Comfort measures only status: (2) Hepatorenal syndrome: Plan: With a h/o EtOH cirrhosis, here with recurrent abdominal ascites and decompensated cirrhosis. Weight is up almost 50 lbs over the last month, with worsening weakness, and now with hepatorenal syndrome. Follows with transplant team at [facility] in [place] not a candidate for transplant again confirmed by GI MACHINE WELT BUTTER via phone call given his significant cardiopulm issues (severe CAD, COPD on chronic O2) and poor functional capacity Based on presenting labs, MELD Na Score of 35 (estimated 3-month mortality rate of 52.6%) Appreciate GI consultation--> arrangements made to transfer to [facility] for HRS and possible SBP even if not necessarily a transplant candidate, but ultimately, pt and family decided to not transfer far away as they know prognosis is very poor and have already been told he is not a good candidate for transplant. They prefer he be closer to family for comfort measures Dcd IV albumin and octreotide and midodrine He received day large volume paracentesis on 11/20 with removal of 6.6 L of ascites for comfort, but have discontinued antibiotics for SBP and no lab studies on peritoneal fluid will be run Continue IV lasix started by Nephro for comfort to keep fluid off as per sister's request Could perform another paracentesis on Sunday for comfort if he wishes if abdomen becomes even more distended but does not seem necessary at this point given he appears very comfortable No further lab draws. Stopped unnecessary meds except those for comfort Morphine for SOB, pain as per Palliative Med-appreciate consult Placed on comfort measures only on 11/21/23 Remains lethargic on 11/28 (3) Abdominal ascites: Plan: As noted above (4) RODRIGO (acute kidney injury): Plan: BUN 58, creatinine 2.53 (baseline 0.7), EGFR 26.5 on arrival hepatorenal syndrome as above Keep Azar, now on OFFICE NURSE PRACTITIONER Appreciate Nephrology consultation No further labs (5) Hypotension: Plan: 89/49 due to hypoalbuminemia, intravascular volume depletion, cirrhosis midodrine started but now discontinued on OFFICE NURSE PRACTITIONER (6) Aspiration pneumonia: Plan: May be residual from last admission However, patient does endorse ongoing SOB at rest and conversational dyspnea Leukocytosis 15.14 on arrival with a neutrophil predominance; was 15.59 at time of discharge on 11/15 Sputum culture on 11/05 grew Staph aureus susceptible to oxacillin and was treated for this with Augmentin on discharge dcd antibiotics on OFFICE NURSE PRACTITIONER and completed course anyway (7) Chronic hypoxic respiratory failure: Plan: Patient is on 3 L NC at baseline continue O2 for comfort (8) Hyponatremia: Plan: Na 122 on arrival; in the setting of decompensated cirrhosis giving lasix but no further labs on OFFICE NURSE PRACTITIONER (9) Scrotal abscess: Plan: Daily wound care Wound care nurse evaluation appreciated U/S Scrotum negative for abscess-abscess ruled out wound care for ulceration (10) Skin lesion of left lower extremity: Plan: Daily wound care (11) Diabetes: Plan: liberalize diet and no further accuchecks or insulin on OFFICE NURSE PRACTITIONER (12) Opioid use disorder: Plan: In remission; continue buprenorphine but is reduced dosing due to liver failure home dose 8 mg qAM and 16 qPM here, on 16 mg qPM (13) Chronic hepatitis C with cirrhosis: Plan: discontinued lactulose (14) Anasarca: Plan: IV lasix for comfort (15) Anemia: Plan: secondary to chronic disease Plan Disposition: transitioned to OFFICE NURSE PRACTITIONER, remains on med/surg. Discussed care with sister/POA on the phone on 11/21 who reports that the patient has terrible living conditions and no one to care for him 11/12 if he were to return home with hospice. Discussed care with sister at bedside on 11/22 I expect he will likely pass away within the next 7 days and can remain in the hospital until then. [place] private [place] Admission and Anticipated Discharge Date Admission Date: November 20, 2023 Subjective Patient is lethargic Review of Systems Review of Systems: Unobtainable due to cognitive status Physical Exam Constitutional: + ill appearing; no acute distress Respiratory: normal respiratory effort Auscultation: + diminished lung sounds (bases bilat); no wheezes Cardiovascular: Rate/Rhythm: regular rate and regular rhythm Heart Sounds: no murmur Extremities: + edema (3+ pitting edema to abdomen bilat) PG Care Time/CCT Total # of Minutes Spent Total Time Spent with Patient: Total time spent is greater than 50% in coordination of care (as documented) at patient's floor/unit and/or counseling patient: Coding Level of Care Code 45889 SUB INP/OBS CARE Diagnoses Comfort measures only status Z51.5 Hepatorenal syndrome K76.7 Abdominal ascites R18.8 RODRIGO (acute kidney injury) N17.9 Hypotension I95.9 Aspiration pneumonia J69.0 Chronic hypoxic respiratory failure J96.11 Hyponatremia E87.1 Scrotal abscess N49.2 Skin lesion of left lower extremity L98.9 Diabetes E11.9 Opioid use disorder F11.90 Chronic hepatitis C with cirrhosis B18.2; K74.60 Anasarca R60.1 Anemia D64.9
--- NOTE | 2023-11-30 23:57 | Hospitalist Progress Note ---
Date of Service November 30, 2023 Assessment & Plan (1) Comfort measures only status: (2) Hepatorenal syndrome: Plan: With a h/o EtOH cirrhosis, here with recurrent abdominal ascites and decompensated cirrhosis. Weight is up almost 50 lbs over the last month, with worsening weakness, and now with hepatorenal syndrome. Follows with transplant team at [facility] in [place]--> not a candidate for transplant again confirmed by GI COLLECTION ADMINISTRATOR via phone call given his significant cardiopulm issues (severe CAD, COPD on chronic O2) and poor functional capacity Based on presenting labs, MELD Na Score of 35 (estimated 3-month mortality rate of 52.6%) Appreciate GI consultation--> arrangements made to transfer to [facility] for HRS and possible SBP even if not necessarily a transplant candidate, but ultimately, pt and family decided to not transfer far away as they know prognosis is very poor and have already been told he is not a good candidate for transplant. They prefer he be closer to family for comfort measures Dcd IV albumin and octreotide and midodrine He received day large volume paracentesis on 11/20 with removal of 6.6 L of ascites for comfort, but have discontinued antibiotics for SBP and no lab studies on peritoneal fluid will be run Continue IV lasix started by Nephro for comfort to keep fluid off as per sister's request Could perform another paracentesis on Sunday for comfort if he wishes if abdomen becomes even more distended but does not seem necessary at this point given he appears very comfortable No further lab draws. Stopped unnecessary meds except those for comfort Morphine for SOB, pain as per Palliative Med-appreciate consult Placed on comfort measures only on 11/21/23 Remains lethargic on 11/29 (3) Abdominal ascites: Plan: As noted above (4) RODRIGO (acute kidney injury): Plan: BUN 58, creatinine 2.53 (baseline 0.7), EGFR 26.5 on arrival hepatorenal syndrome as above Keep Azar, now on ROAD TEST EXAMINER Appreciate Nephrology consultation No further labs (5) Hypotension: Plan: 89/49 due to hypoalbuminemia, intravascular volume depletion, cirrhosis midodrine started but now discontinued on ROAD TEST EXAMINER (6) Aspiration pneumonia: Plan: May be residual from last admission However, patient does endorse ongoing SOB at rest and conversational dyspnea Leukocytosis 15.14 on arrival with a neutrophil predominance; was 15.59 at time of discharge on 11/15 Sputum culture on 11/05 grew Staph aureus susceptible to oxacillin and was treated for this with Augmentin on discharge dcd antibiotics on ROAD TEST EXAMINER and completed course anyway (7) Chronic hypoxic respiratory failure: Plan: Patient is on 3 L NC at baseline continue O2 for comfort (8) Hyponatremia: Plan: Na 122 on arrival; in the setting of decompensated cirrhosis giving lasix but no further labs on ROAD TEST EXAMINER (9) Scrotal abscess: Plan: Daily wound care Wound care nurse evaluation appreciated U/S Scrotum negative for abscess-abscess ruled out wound care for ulceration (10) Skin lesion of left lower extremity: Plan: Daily wound care (11) Diabetes: Plan: liberalize diet and no further accuchecks or insulin on ROAD TEST EXAMINER (12) Opioid use disorder: Plan: In remission; continue buprenorphine but is reduced dosing due to liver failure home dose 8 mg qAM and 16 qPM here, on 16 mg qPM (13) Chronic hepatitis C with cirrhosis: Plan: discontinued lactulose (14) Anasarca: Plan: IV lasix for comfort (15) Anemia: Plan: secondary to chronic disease Plan Disposition: transitioned to ROAD TEST EXAMINER, remains on med/surg. Discussed care with sister/POA on the phone on 11/21 who reports that the patient has terrible living conditions and no one to care for him 11/12 if he were to return home with hospice. Discussed care with sister at bedside on 11/22 I expect he will likely pass away within the next 7 days and can remain in the hospital until then. [place] private [place] Admission and Anticipated Discharge Date Admission Date: November 20, 2023 Subjective 63 yo male is comfortable. Review of Systems Review of Systems: All systems reviewed & are unremarkable except as noted in HPI & below Physical Exam Constitutional: + ill appearing; no acute distress Respiratory: normal respiratory effort Auscultation: + diminished lung sounds (bases bilat); no wheezes Cardiovascular: Rate/Rhythm: regular rate and regular rhythm Heart Sounds: no murmur Extremities: + edema (3+ pitting edema to abdomen bilat) PG Care Time/CCT Total # of Minutes Spent Total Time Spent with Patient: Total time spent is greater than 50% in coordination of care (as documented) at patient's floor/unit and/or counseling patient: Coding Level of Care Code 86703 SUB INP/OBS CARE Diagnoses Comfort measures only status Z51.5 Hepatorenal syndrome K76.7 Abdominal ascites R18.8 RODRIGO (acute kidney injury) N17.9 Hypotension I95.9 Aspiration pneumonia J69.0 Chronic hypoxic respiratory failure J96.11 Hyponatremia E87.1 Scrotal abscess N49.2 Skin lesion of left lower extremity L98.9 Diabetes E11.9 Opioid use disorder F11.90 Chronic hepatitis C with cirrhosis B18.2; K74.60 Anasarca R60.1 Anemia D64.9
--- NOTE | 2023-12-01 21:10 | Hospitalist Progress Note ---
Date of Service December 01, 2023 Assessment & Plan (1) Comfort measures only status: (2) Hepatorenal syndrome: Plan: With a h/o EtOH cirrhosis, here with recurrent abdominal ascites and decompensated cirrhosis. Weight is up almost 50 lbs over the last month, with worsening weakness, and now with hepatorenal syndrome. Follows with transplant team at [facility] in [place]--> not a candidate for transplant again confirmed by GI LEAD CARGO MOVER via phone call given his significant cardiopulm issues (severe CAD, COPD on chronic O2) and poor functional capacity Based on presenting labs, MELD Na Score of 35 (estimated 3-month mortality rate of 52.6%) Appreciate GI consultation--> arrangements made to transfer to [facility] for HRS and possible SBP even if not necessarily a transplant candidate, but ultimately, pt and family decided to not transfer far away as they know prognosis is very poor and have already been told he is not a good candidate for transplant. They prefer he be closer to family for comfort measures Dcd IV albumin and octreotide and midodrine He received day large volume paracentesis on 11/20 with removal of 6.6 L of ascites for comfort, but have discontinued antibiotics for SBP and no lab studies on peritoneal fluid will be run Continue IV lasix started by Nephro for comfort to keep fluid off as per sister's request Could perform another paracentesis on Sunday for comfort if he wishes if abdomen becomes even more distended but does not seem necessary at this point given he appears very comfortable No further lab draws. Stopped unnecessary meds except those for comfort Morphine for SOB, pain as per Palliative Med-appreciate consult Placed on comfort measures only on 11/21/23 Remains lethargic on 11/30 (3) Abdominal ascites: Plan: As noted above (4) RODRIGO (acute kidney injury): Plan: BUN 58, creatinine 2.53 (baseline 0.7), EGFR 26.5 on arrival hepatorenal syndrome as above Keep Azar, now on BROOMCORN SEEDER Appreciate Nephrology consultation No further labs (5) Hypotension: Plan: 89/49 due to hypoalbuminemia, intravascular volume depletion, cirrhosis midodrine started but now discontinued on BROOMCORN SEEDER (6) Aspiration pneumonia: Plan: May be residual from last admission However, patient does endorse ongoing SOB at rest and conversational dyspnea Leukocytosis 15.14 on arrival with a neutrophil predominance; was 15.59 at time of discharge on 11/15 Sputum culture on 11/05 grew Staph aureus susceptible to oxacillin and was treated for this with Augmentin on discharge dcd antibiotics on BROOMCORN SEEDER and completed course anyway (7) Chronic hypoxic respiratory failure: Plan: Patient is on 3 L NC at baseline continue O2 for comfort (8) Hyponatremia: Plan: Na 122 on arrival; in the setting of decompensated cirrhosis giving lasix but no further labs on BROOMCORN SEEDER (9) Scrotal abscess: Plan: Daily wound care Wound care nurse evaluation appreciated U/S Scrotum negative for abscess-abscess ruled out wound care for ulceration (10) Skin lesion of left lower extremity: Plan: Daily wound care (11) Diabetes: Plan: liberalize diet and no further accuchecks or insulin on BROOMCORN SEEDER (12) Opioid use disorder: Plan: In remission; continue buprenorphine but is reduced dosing due to liver failure home dose 8 mg qAM and 16 qPM here, on 16 mg qPM (13) Chronic hepatitis C with cirrhosis: Plan: discontinued lactulose (14) Anasarca: Plan: IV lasix for comfort (15) Anemia: Plan: secondary to chronic disease Plan Disposition: transitioned to BROOMCORN SEEDER, remains on med/surg. Discussed care with sister/POA on the phone on 11/21 who reports that the patient has terrible living conditions and no one to care for him 11/12 if he were to return home with hospice. Discussed care with family at bedside on 11/30 I expect he will likely pass away within the next few days and can remain in the hospital until then. He [place] afford private pay [place] Admission and Anticipated Discharge Date Admission Date: November 20, 2023 Subjective Patient remains lethargic. Family is at bedside. Review of Systems Review of Systems: Unobtainable due to cognitive status Physical Exam Constitutional: + ill appearing; no acute distress Respiratory: normal respiratory effort Auscultation: + diminished lung sounds (bases bilat); no wheezes Cardiovascular: Rate/Rhythm: regular rate and regular rhythm Heart Sounds: no murmur Extremities: + edema (3+ pitting edema to abdomen bilat) PG Care Time/CCT Total # of Minutes Spent Total Time Spent with Patient: Total time spent is greater than 50% in coordination of care (as documented) at patient's floor/unit and/or counseling patient: Coding Level of Care Code 24779 SUB INP/OBS CARE Diagnoses Comfort measures only status Z51.5 Hepatorenal syndrome K76.7 Abdominal ascites R18.8 RODRIGO (acute kidney injury) N17.9 Hypotension I95.9 Aspiration pneumonia J69.0 Chronic hypoxic respiratory failure J96.11 Hyponatremia E87.1 Scrotal abscess N49.2 Skin lesion of left lower extremity L98.9 Diabetes E11.9 Opioid use disorder F11.90 Chronic hepatitis C with cirrhosis B18.2; K74.60 Anasarca R60.1 Anemia D64.9
--- NOTE | 2023-12-02 08:54 | Hospitalist Progress Note ---
Date of Service December 02, 2023 Assessment & Plan (1) Comfort measures only status: (2) Hepatorenal syndrome: Plan: With a h/o EtOH cirrhosis, chronic hepatitis C, here with recurrent abdominal ascites and decompensated cirrhosis. Weight is up almost 50 lbs over the last month, with worsening weakness, and now with hepatorenal syndrome. Follows with transplant team at [facility] in [facility]--> not a candidate for transplant again confirmed by GI TEXTILE ENGINEER via phone call given his significant cardiopulm issues (severe CAD, COPD on chronic O2) and poor functional capacity Based on presenting labs, MELD Na Score of 35 (estimated 3-month mortality rate of 52.6%) Appreciate GI consultation--> arrangements made to transfer to [facility] for HRS and possible SBP even if not necessarily a transplant candidate, but ultimately, pt and family decided to not transfer far away as they know prognosis is very poor and have already been told he is not a good candidate for transplant. They prefer he be closer to family for comfort measures Dcd IV albumin and octreotide and midodrine He received day large volume paracentesis on 11/20 with removal of 6.6 L of ascites for comfort, but have discontinued antibiotics for SBP and no lab studies on peritoneal fluid will be run he appears very comfortable No further lab draws. Stopped unnecessary meds except those for comfort Placed on comfort measures only on 11/21/23-Morphine for SOB, pain as per Palliative Med-appreciate consult, up titrated 12/02/23 Remains lethargic (3) Abdominal ascites: Plan: As noted above (4) RODRIGO (acute kidney injury): Plan: BUN 58, creatinine 2.53 (baseline 0.7), EGFR 26.5 on arrival, in setting of CKD 3 hepatorenal syndrome as above Keep Azar, now on MULTICRAFT OPERATOR Appreciate Nephrology consultation No further labs anemia of chronic disease hyponatremia in setting of renal failure (5) Aspiration pneumonia: Plan: May be residual from last admission However, patient does endorse ongoing SOB at rest and conversational dyspnea Leukocytosis 15.14 on arrival with a neutrophil predominance; was 15.59 at time of discharge on 11/15 Sputum culture on 11/05 grew Staph aureus susceptible to oxacillin and was treated for this with Augmentin on discharge dcd antibiotics on MULTICRAFT OPERATOR and completed course anyway (6) Chronic hypoxic respiratory failure: Plan: Patient is on 3 L NC at baseline continue O2 for comfort (7) Diabetes: Plan: liberalize diet and no further accuchecks or insulin on MULTICRAFT OPERATOR Plan Disposition: transitioned to MULTICRAFT OPERATOR, remains on med/surg. Discussed care with sister/POA on the phone on 11/21 who reports that the patient has terrible living conditions and no one to care for him 11/12 if he were to return home with hospice. Discussed care with family at bedside on 12/01 I expect he will likely pass away within the next few days and can remain in the hospital until then. He cannot afford private [place] Admission and Anticipated Discharge Date Admission Date: November 20, 2023 Subjective Pt moans and moves sister at bedside, she thinks he is uncomfortable, given prn ativan and increased morphine gtt Physical Exam Physical Exam: some facial grimacing, some jaw tremor shallow resp ascites and jaundice Results & Data Results & Data Vital Signs (Past 12 Hours) Vital Signs O2 Del Method O2 Flow Rate 12/01/23 23:19 Nasal Cannula 3 PG Care Time/CCT Total # of Minutes Spent Total Time Spent with Patient: Total time spent is greater than 50% in coordination of care (as documented) at patient's floor/unit and/or counseling patient: Coding Level of Care Code 89176 SUB INP/OBS CARE 2/35MIN Diagnoses Comfort measures only status Z51.5 Hepatorenal syndrome K76.7 Abdominal ascites R18.8 RODRIGO (acute kidney injury) N17.9 Aspiration pneumonia J69.0 Chronic hypoxic respiratory failure J96.11 Diabetes E11.9
[2023-12-02] MEDS: SODIUM CHLORIDE 0.9% 1,000 ML IV SCH (16:19)
[2023-12-02] MEDS: LORazepam 1 MG in SYRINGE 0.5 ML IV PRN (21:05)
--- NOTE | 2023-12-03 13:31 | Hospitalist Progress Note ---
Date of Service December 03, 2023 Assessment & Plan (1) Comfort measures only status: Plan: Patient has been on comfort care with morphine infusion and as needed Ativan. However he does still seem to be some distance away from actual time of dying. (2) Hepatorenal syndrome: Plan: With a h/o EtOH cirrhosis, chronic hepatitis C, here with recurrent abdominal ascites and decompensated cirrhosis. Weight is up almost 50 lbs over the last month, with worsening weakness, and now with hepatorenal syndrome. Previously has followed with transplant team at [facility]--> not a candidate for transplant again confirmed by GI SHERINE via phone call given his significant cardiopulm issues (severe CAD, COPD on chronic O2) and poor functional capacity Based on presenting labs, MELD Na Score of 35 (estimated 3-month mortality rate of 52.6%) Appreciate GI consultation--> arrangements made to transfer to [facility] for HRS and possible SBP even if not necessarily a transplant candidate, but ultimately, pt and family decided to not transfer far away as they know prognosis is very poor and have already been told he is not a good candidate for transplant. They prefer he be closer to family for comfort measures Dcd IV albumin and octreotide and midodrine He received day large volume paracentesis on 11/20 with removal of 6.6 L of ascites for comfort, but have discontinued antibiotics for SBP and no lab studies on peritoneal fluid will be run No further lab draws. Stopped unnecessary meds except those for comfort Placed on comfort measures only on 11/21/23-Morphine for SOB, pain as per Palliative Med-appreciate consult, up titrated 12/03/23 Remains lethargic (3) Abdominal ascites: Plan: As noted above (4) RODRIGO (acute kidney injury): Plan: BUN 58, creatinine 2.53 (baseline 0.7), EGFR 26.5 on arrival, in setting of CKD 3 hepatorenal syndrome as above Albert Azar, now on FLOTATION TENDER Appreciate Nephrology consultation No further labs anemia of chronic disease hyponatremia in setting of renal failure (5) Aspiration pneumonia: Plan: May be residual from last admission However, patient does endorse ongoing SOB at rest and conversational dyspnea Leukocytosis 15.14 on arrival with a neutrophil predominance; was 15.59 at time of discharge on 11/15 Sputum culture on 11/05 grew Staph aureus susceptible to oxacillin and was treated for this with Augmentin on discharge dcd antibiotics on FLOTATION TENDER and completed course anyway (6) Chronic hypoxic respiratory failure: Plan: Remains on supplemental oxygen (7) Diabetes: Plan: no further accuchecks or insulin on FLOTATION TENDER Plan Disposition: transitioned to FLOTATION TENDER, remains on med/surg. Discussed care with sister/POA on the phone on 11/21 who reports that the patient has terrible living conditions and no one to care for him 11/12 if he were to return home with hospice. Discussed care with family at bedside on 12/02 I expect he will likely pass away within the next few days Admission and Anticipated Discharge Date Admission Date: November 20, 2023 Subjective Pt moans and moves, responds with "huh" but falls back asleep family at bedside, remains on morphine and ativan Physical Exam Physical Exam: less distress noted, gtt has increased overnight shallow resp ascites and jaundice PG Care Time/CCT Total # of Minutes Spent Total Time Spent with Patient: Total time spent is greater than 50% in coordination of care (as documented) at patient's floor/unit and/or counseling patient: Coding Level of Care Code 28800 SUB INP/OBS CARE 25MIN Diagnoses Comfort measures only status Z51.5 Hepatorenal syndrome K76.7 Abdominal ascites R18.8 RODRIGO (acute kidney injury) N17.9 Aspiration pneumonia J69.0 Chronic hypoxic respiratory failure J96.11 Diabetes E11.9
--- NOTE | 2023-12-03 21:06 | Communication Note ---
Date of Service: December 03, 2023 Brief palliative medicine note Late entry note for visit of 12/03/2023 Patient remains on comfort care Morphine infusion continues, he has required only 1 as needed dose each day. He has been requiring relatively frequent doses of the Ativan for agitation. Overall, appears comfortable continues to be on the decline every day. Will remain in-house and anticipate hours to few days. TS 35min Thank you for allowing us to participate in the ongoing care of this patient. Please page with any additional concerns. Gilson Issa DNP Director, Palliative Medicine
[2023-12-04] MEDS ORDERED: MoRPHine SULFATE 4 MG/ML 1 ML CARP\\VIAL IV PRN (11:20)
[2023-12-04] MEDS ORDERED: LORazepam 3 MG in SYRINGE 1.5 ML IV PRN (13:00)
--- NOTE | 2023-12-04 15:13 | Hospitalist Progress Note ---
Date of Service December 04, 2023 Assessment & Plan (1) Comfort measures only status: Plan: Patient has been on comfort care with morphine infusion and as needed Ativan. (2) Hepatorenal syndrome: Plan: With a h/o EtOH cirrhosis, chronic hepatitis C, here with recurrent abdominal ascites and decompensated cirrhosis. Weight is up almost 50 lbs over the last month, with worsening weakness, and now with hepatorenal syndrome. Previously has followed with transplant team at [facility] in [place]--> not a candidate for transplant again confirmed by GI SHERINE via phone call given his significant cardiopulm issues (severe CAD, COPD on chronic O2) and poor functional capacity Based on presenting labs, MELD Na Score of 35 (estimated 3-month mortality rate of 52.6%) Appreciate GI consultation--> arrangements made to transfer to [facility] for HRS and possible SBP even if not necessarily a transplant candidate, but ultimately, pt and family decided to not transfer far away as they know prognosis is very poor and have already been told he is not a good candidate for transplant. They prefer he be closer to family for comfort measures Dcd IV albumin and octreotide and midodrine He received day large volume paracentesis on 11/20 with removal of 6.6 L of ascites for comfort, but have discontinued antibiotics for SBP and no lab studies on peritoneal fluid will be run No further lab draws. Stopped unnecessary meds except those for comfort Placed on comfort measures only on 11/21/23-Morphine for SOB, pain as per Palliative Med-appreciate consult, up titrated 12/03/23 Remains lethargic (3) RODRIGO (acute kidney injury): Plan: BUN 58, creatinine 2.53 (baseline 0.7), EGFR 26.5 on arrival, in setting of CKD 3 hepatorenal syndrome as above Keep Azar, now on BIOGEOGRAPHER Appreciate Nephrology consultation No further labs anemia of chronic disease hyponatremia in setting of renal failure (4) Aspiration pneumonia: Plan: May be residual from last admission versus with chronic hypoxic respiratory failure with requiring supplemental oxygen prior to comfort care measures However, patient does endorse ongoing SOB at rest and conversational dyspnea Leukocytosis 15.14 on arrival with a neutrophil predominance; was 15.59 at time of discharge on 11/15 Sputum culture on 11/05 grew Staph aureus susceptible to oxacillin and was treated for this with Augmentin on discharge dcd antibiotics on BIOGEOGRAPHER and completed course anyway (5) Diabetes: Plan: no further accuchecks or insulin on BIOGEOGRAPHER Plan Disposition: transitioned to BIOGEOGRAPHER, remains on med/surg. Discussed care with sister/POA on the phone on 11/21 who reports that the patient has terrible living conditions and no one to care for him 11/12 if he were to return home with hospice. Discussed care with family at bedside on 12/03 I expect he will likely pass away within the next few days Admission and Anticipated Discharge Date Admission Date: November 20, 2023 Subjective Pt moans and moves, no longer responding with verbal acknowledgment family at bedside, remains on morphine and ativan doses are being titrated Physical Exam Physical Exam: less distress noted, continues on morphine drip and bolus Ativan shallow resp ascites and jaundice Results & Data Results & Data Vital Signs (Past 12 Hours) Vital Signs Resp O2 Del Method O2 Flow Rate 12/04/23 11:17 24 12/04/23 11:03 22 12/04/23 07:30 Nasal Cannula 2 12/04/23 07:30 16 Nasal Cannula 2 PG Care Time/CCT Total # of Minutes Spent Total Time Spent with Patient: Total time spent is greater than 50% in coordination of care (as documented) at patient's floor/unit and/or counseling patient: Coding Level of Care Code 39381 SUB INP/OBS CARE 2/35MIN Diagnoses Comfort measures only status Z51.5 Hepatorenal syndrome K76.7 RODRIGO (acute kidney injury) N17.9 Aspiration pneumonia J69.0 Diabetes E11.9
--- NOTE | 2023-12-04 18:22 | Palliative Care Progress Note ---
Date of Service December 04, 2023 Assessment & Plan (1) Abdominal pain, generalized: Plan: Patient is increasingly uncomfortable with agitation. Morphine infusion rate has been increased x 2 and bolus doses are being given. Additionally we have increased his Ativan dose to improve his comfort. It should be noted that this patient is extremely opioid tolerant with a longstanding history of chronic opioid utilization prior to this admission was managed at home on buprenorphine. His opioid needs may be higher than average thresholds. (2) Weakness generalized: (3) Need for comfort care: (4) Declining performance status: (5) Palliative care by specialist: (6) Advanced care planning/counseling discussion: Plan: met with sister at bedside for 20min face to face ACP questions re dying process answered, reviewed symptoms that will change and what would indicate transition to active dying. she asked for improvement in symptom mgt and med changes were reviewed extensive support and reassurance provided. they appreciate the creative coordinator support. Plan Comfort medications adjusted to improve symptom management especially pain, agitation, restlessness. Extensive support and reassurance provided to sister at the bedside. Offered abseiling instructor support which she accepted, and also notes that the research scholar has come by to give him last rights in the last few days. Please note: the above document was generated using voice recognition software. It may contain unintentional grammatical, syntax or spelling errors. Any formal questions or concerns about the content, text or information contained within the body of this dictation should be directly addressed to the provider for clarification. Thank you for allowing us to participate in the ongoing care of this patient. Please page with any additional concerns. Gilson Issa DNP Director, Palliative Medicine Admission and Anticipated Discharge Date Admission Date: November 20, 2023 Subjective Increasing agitation, restlessness, grimacing and at times moaning. Sisters remain at his bedside and has been staying the night in shifts. This afternoon, he is slightly diaphoretic, eyes open at times but he is not responding to verbal stimulus. His brow remains furrowed and he is grimacing. He does not appear comfortable. Review of Systems Review of Systems: Unobtainable due to cognitive status and Unobtainable due to reduced consciousness Physical Exam Physical Exam: Zack is seen lying in bed, grimacing with a furrowed brow. He appears to be in some distress. He is mildly diaphoretic. There is a mild yellow pallor to his skin. There is bitemporal wasting noted. Pupils are sluggishly reactive. Pharynx is slightly pink, mucosa slightly dry. Dentition is fair. Respiratory effort is increased. There is use of accessory muscles. He is tachycardic without any evidence of murmur. Abdomen is slightly distended. There is mild tenderness with palpation, grimacing is noted. Extremities are edematous (+1 bilaterally) with evidence of venous insufficiency changes, erythema, skin peeling. He is unable to follow commands. Results & Data Vital Signs (Past 12 Hours) Vital Signs Resp O2 Del Method O2 Flow Rate 12/04/23 11:17 24 12/04/23 11:03 22 12/04/23 07:30 Nasal Cannula 2 12/04/23 07:30 16 Nasal Cannula 2 PG Care Time/CCT Total # of Minutes Spent Total Time Spent with Patient: Total time spent is greater than 50% in coordination of care (as documented) at patient's floor/unit and/or counseling patient: I spent 80 minutes overall addressing this case: 15 min in medical data review/discussion with referring provider(s) and/or preparation for the visit incl nursing, primary team 15 min in direct interaction with the patient/exam 20 min in Advance Care Planning/Goals of Care discussions as detailed above in note (must be >16min) 15 min in subsequent review and synthesis of assessment and plan 15 min communicating with other providers regarding the patient's case: primary team, nursing Advanced Care Planning 73592 Advanced Care Planning 30 Min [place] [address] SUB INP/OBS CARE 3/50MIN (25 - SIGNIFICANT, SEPARATELY IDENTIFIABLE ) Patient Type Established Medical Decision Making High Complexity Diagnoses Abdominal pain, generalized R10.84 Weakness generalized R53.1 Need for comfort care Declining performance status R53.81 Palliative care by specialist Z51.5 Advanced care planning/counseling discussion Z71.89 Additional Codes Advanced Care Planning - 96872 Advanced Care Planning 30 Min: 06389 Advanced Care Planning 30 Min ([id number])
--- NOTE | 2023-12-04 20:52 | Death Pronouncement Note ---
Date of Service December 04, 2023 Pronouncement Note Admission Date November 20, 2023 Date and Time of Date of : 12/04/23 Time of : 20:45 Preliminary Cause of (1) Hepatorenal syndrome: (2) Hepatic failure: (3) Acute renal failure: Acute renal failure type: unspecified Qualified Code(s): N17.9 - Acute kidney failure, unspecified (4) Acute hepatic encephalopathy: Summary Called to bedside at 2044 by nursing due to family notifying staff that they believed patient had passed. Patient's sister present at bedside. Examination confirmed that Chuck Gonzalez had passed peacefully at 2044. Additional Data Confirmation of : no pulse, no respirations, no heart sounds and pupils fixed and dilated Pronouncement Performed By: Resident Physician Family: at bedside Attending/PCP notified?: Yes Attending physician: Que Sotelo MD Was code activated?: No Resident Activity Tracking Resident Involvement: Resident Care Provided Care Provided: Adult Hospital Medicine
--- NOTE | 2023-12-05 07:19 | Discharge Summary ---
Discharge Summary Date of Service Patient December 04, 2023 at 2045 hrs. Cause of is liver failure Principal Dx & Hospital Course #1 = Principal Diagnosis (1) Comfort measures only status: Patient has been on comfort care with morphine infusion and as needed Ativan. (2) Hepatorenal syndrome: With a h/o EtOH cirrhosis, chronic hepatitis C, here with recurrent abdominal ascites and decompensated cirrhosis. Weight is up almost 50 lbs over the last month, with worsening weakness, and now with hepatorenal syndrome. Previously has followed with transplant team at [facility] in [facility]--> not a candidate for transplant again confirmed by GI COMBER OPERATOR via phone call given his significant cardiopulm issues (severe CAD, COPD on chronic O2) and poor functional capacity Based on presenting labs, MELD Na Score of 35 (estimated 3-month mortality rate of 52.6%) Appreciate GI consultation--> arrangements made to transfer to [facility] for HRS and possible SBP even if not necessarily a transplant candidate, but ultimately, pt and family decided to not transfer far away as they knew prognosis was very poor Dcd IV albumin and octreotide and midodrine He received day large volume paracentesis on 11/20 with removal of 6.6 L of ascites for comfort, but have discontinued antibiotics for SBP and no lab studies on peritoneal fluid will be run No further lab draws. Stopped unnecessary meds except those for comfort (3) RODRIGO (acute kidney injury): BUN 58, creatinine 2.53 (baseline 0.7), EGFR 26.5 on arrival, in setting of CKD 3 hepatorenal syndrome as above anemia of chronic disease hyponatremia in setting of renal failure (4) Aspiration pneumonia: May be residual from last admission versus with chronic hypoxic respiratory carmen lure with requiring supplemental oxygen prior to comfort care measures However, patient does endorse ongoing SOB at rest and conversational dyspnea Leukocytosis 15.14 on arrival with a neutrophil predominance; was 15.59 at time of discharge on 11/15 Sputum culture on 11/05 grew Staph aureus susceptible to oxacillin and was treated for this with Augmentin on discharge dcd antibiotics on OWNER CONSULTING ENGINEER and completed course anyway (5) Diabetes: no further accuchecks or insulin on OWNER CONSULTING ENGINEER Plan Disposition: transitioned to OWNER CONSULTING ENGINEER, remains on med/surg. Discussed care with sister/POA on the phone on 7/4 who reports that the patient has terrible living conditions and no one to care for him 11/12 if he were to return home with hospice. Discussed care with family at bedside on 12/03 Admission HPI Per Admitting Provider Chuck is a 62-year-old male with PMH of chronic hepatitis C with cirrhosis, liver failure, HTN, anxiety, anasarca, GERD, opioid use disorder, metabolic encephalopathy, COPD, gastroparesis, alcohol use (in recovery), diabetes, sepsis, and renal failure. He presented via EMS from [facility] for abdominal and bilateral feet swelling on 11/19. He also had an elevated WBC and creatinine on outpatient labs. Recent [facility] discharge on 11/15. At time of this admission, he reports that he feels bloated, and is having pain in his neck, left leg, and testicles. He is unsure when the pain started. History of liver failure with last paracentesis 1.5 weeks ago (on 11/07). Patient was trying to get on the liver transplant list, and is in communication with [facility], but was denied recently from [place]. Patient is a former alcoholic, but reports he quit drinking years ago. He reports he has not been not making much urine lately. He also reports that he has had a significant weight gain over the past month (is usually around 206 pounds, but was recently weighed around 260 pounds). He endorses SOB both at rest and with exertion; it is not worse when he lays flat on his back. The pain in his neck, left leg, and testicles are all constant; he rates them each around 5 or 6 out of 10. Testicular pain is worse with movements. No recent sexual activity. He reports that he has had a blotchy, petechial rash on his hands and feet which developed during his last hospital admission. The rash is not painful or itchy. Patient uses supplemental oxygen at baseline (3L NC). No CPAP at night. Patient is a current everyday tobacco cigarette smoker; 0.5 PPD. He denies any recent alcohol use or recreational drug use. He reports he had 1 pill this morning, but is unsure which pill. Patient's SpO2 is 93% on 3L NC; hypotensive at 89/49 at time of admission. ED course: Zosyn 4.5 g IV Morphine sulfate 4 mg IV ROS: Patient endorses intermittent night-sweats, BOLANOS, abdominal cramping/bloating, neck pain, left leg pain, rash across the hands and feet, SOB at rest (more than usual), wheezing, productive cough (dark yellow), and N/V (last vomited this morning after eating breakfast too quickly). Patient denies fever, chills, dizziness, lightheadedness, changes in vision, pleuritic CP, chest pain, hemoptysis, hematemesis, changes in urinary/bowel habits, burning with urination, dysuria, or blood in the urine/stool. Discharge Exam Patient was pronounced by covering physician Updated Medication List Medication Instructions Recorded Confirmed Type buprenorphine HCl 8 mg sublingual 8 mg sublingual QAM 03/30/22 11/20/23 History tablet lactulose 20 gram/30 mL oral 20 g (30 mL) PO TID #60 mL 04/21/22 11/20/23 Rx solution gabapentin 800 mg tablet 800 mg PO TID 06/12/22 11/20/23 History diclofenac sodium 1 % topical gel 4 g EXT QID PRN back pain #1 tube 07/18/22 0 11/20/23 Rx (Voltaren Arthritis Pain) omeprazole 40 mg capsule,delayed 40 mg PO QAM #30 caps 07/18/22 11/20/23 Rx release buprenorphine HCl 8 mg sublingual 16 mg sublingual QPM 04/27/23 11/20/23 History tablet fluoxetine 20 mg tablet 20 mg PO DAILY 11/06/23 11/20/23 History spironolactone 100 mg tablet 100 mg PO DAILY 11/06/23 11/20/23 History acetaminophen 325 mg tablet 650 mg PO Q4 PRN Fever Or Pain 11/20/23 11/20/23 History (Tylenol) furosemide 40 mg tablet (Lasix) 40 mg PO BID 11/20/23 11/20/23 History insulin glargine 100 unit/mL (3 12 unit subcut HS 11/20/23 11/20/23 History mL) subcutaneous pen (Basaglar KwikPen U-100 Insulin) nicotine 14 mg/24 hr daily 1 patch transdermal DAILY 11/20/23 11/20/23 History transdermal patch Hospital Stay Data Consultations 11/20/23 12:14 ED Decision to Admit Stat 11/20/23 12:44 Consult Nephrology Stat 07/03/24 08:04 Consult Gastroenterology Routine 11/21/23 08:10 Consult Palliative Care Routine Diagnostic Imagining Performed 11/20/23 10:06 US scrotum/testicle Stat 11/20/23 11:59 CT abd pelvis wo con Stat 11/21/23 12:58 IR paracentesis abd w/img US Routine Total Time Total Time Spent Total Time Spent (In Minutes): Less than 30 minutes were required to prepare this summary and certificate Coding Level of Care Code None Diagnoses Comfort measures only status Z51.5 Hepatorenal syndrome K76.7 RODRIGO (acute kidney injury) N17.9 Aspiration pneumonia J69.0 Diabetes E11.9
== END 2023-12-04 22:10 | disposition expired | DRG 441 ==
LOC: ED 09:55 → SUATTDRO 13:10 → 4W 13:10 → 3E 11-21 18:35